=== PATIENT | female | born 1945 | race Caucasian/White ===

== ENCOUNTER 2022-03-08 09:32 | Outpatient (CLI) | payer MEDICARE, BC, SELFPAY ==
[2022-03-08 14:05] LABS: Albumin* 3.9 g/dL (3.3-5.0); Chloride* 102 mmol/L (96-114); Potassium* 3.6 mmol/L (3.6-5.1); Sodium* 135 mmol/L (135-149)
[2022-03-08 14:07] LABS: Bilirubin Total* 0.5 mg/dL (0.1-1.5); Carbon Dioxide* 28 mmol/L (20-32); Creatinine* 0.8 mg/dL (0.5-1.5); Estimated Glomerular Filt Rate 77 ml/min
[2022-03-08 14:08] LABS: Alanine Aminotransferase* 23 U/L (4-35); Alkaline Phosphatase* 64 U/L (40-150); Aspartate Amino Transferase* 36 U/L (12-35); Blood Urea Nitrogen* 20 mg/dL (7-30); Calcium* 9.8 mg/dL (8.4-10.6); Glucose* 94 mg/dL (60-115); Total Protein* 7.2 g/dL (6.0-8.3)
== END 2022-03-08 09:33 | disposition home or self-care (01) ==
LOC: LONREF 09:46
PROVIDERS: PCP Family Medicine; Visit Provider Family Medicine
DX: Z01.419 Encounter for gynecological examination (general) (routine) without abnormal findings (principal); E03.9 Hypothyroidism, unspecified; E78.5 Hyperlipidemia, unspecified; E55.9 Vitamin D deficiency, unspecified; K21.9 Gastro-esophageal reflux disease without esophagitis; E11.9 Type 2 diabetes mellitus without complications
CPT/HCPCS: 80053; 82310; 83970

== ENCOUNTER 2022-03-09 09:57 | Outpatient (CLI) | payer MEDICARE, SELFPAY ==
[2022-03-09 14:34] LABS: Cholesterol* 187 mg/dL (90-199); HDL Cholesterol* 63 mg/dL (>=50); LDL Cholesterol Calculated 103 mg/dL (<100); Triglycerides* 106 mg/dL (40-149)
[2022-03-11 15:44] LABS: TSH With Reflex to FT4* 0.178 uIU/mL (0.270-4.200)
[2022-03-11 16:13] LABS: Free T4 Free Thyroxine* 2.32 ng/dL (0.70-1.85)
== END 2022-03-09 09:58 | disposition home or self-care (01) ==
LOC: LONREF 09:59
PROVIDERS: PCP Family Medicine; Visit Provider Family Medicine
DX: Z01.419 Encounter for gynecological examination (general) (routine) without abnormal findings (principal); E78.5 Hyperlipidemia, unspecified; E03.9 Hypothyroidism, unspecified; E55.9 Vitamin D deficiency, unspecified
CPT/HCPCS: 80061; 84439; 84443

== ENCOUNTER 2022-04-12 09:30 | Outpatient (CLI) | payer MEDICARE, SELFPAY | END 2022-04-12 09:31 | disposition home or self-care (01) | PROVIDERS: PCP Family Medicine; Visit Provider Family Medicine | DX: E03.9 Hypothyroidism, unspecified (principal); E05.90 Thyrotoxicosis, unspecified without thyrotoxic crisis or storm | CPT/HCPCS: 84443 ==

== ENCOUNTER 2022-05-10 09:28 | Outpatient (CLI) | payer MEDICARE, BC, SELFPAY ==
--- OUTSIDE RECORDS SUMMARY | 2022-05-10 09:48 | XMS_ITS | Clinical Summary ---
:1945 Author Organization [facility] [place] [address] Care Team Providers Name Role Phone Vanessa García MD Primary Care Provider [phone] Allergies Active Allergy Reactions Severity Noted Date Comments Atorvastatin Myalgia 04/13/2017 Codeine Nausea And Vomiting 03/22/2011 Ezetimibe Myalgia 04/13/2017 Rosuvastatin Myalgia 04/13/2017 Medications Medication Sig Dispensed Refills Start Date End Date Status levothyroxine Take 25 mcg by 0 A ctive (SYNTHROID) 25 mcg mouth before tablet breakfast. FLUTICASONE Inhale 2 Sprays in 0 Active PROPIONATE (FLONASE the nostril(s) NASL) once daily if needed. metFORMIN (GLUCOPHAGE Take 1,000 mg by 0 Active XR) 500 mg mouth 2 times Extended-Release daily with meals. tablet Cholecalciferol, Take 2,000 Units 0 Active Vitamin D3, 2,000 by mouth once unit tablet daily. acetaminophen Take 1-2 tablets 100 tablet 0 04/21/2017 Active (TYLENOL) 325 mg by mouth every 6 tabletIndications: hours if needed. Primary Max acetaminophen osteoarthritis of dose: 4000mg in 24 left knee hrs. ibuprofen (ADVIL; Take 1 tablet by 40 tablet 0 04/21/2017 Active MOTRIN) 600 mg mouth every 6 tabletIndications: hours if needed Primary for Pain (Take osteoarthritis of with food). left knee Maximum of 3200 mg in 24 hours. aspirin chewable 81 Take 1 tablet by 0 03/28/2018 Active mg chewable tablet mouth once daily with a meal. rosuvastatin Take 1 tablet by 90 tablet 0 03/26/2020 Active (CRESTOR) 5 mg mouth at bedtime. tabletIndications: Further refills to Dyslipidemia come from primary care provider. Magnesium Oxide 500 Daily 0 Active mg tab mirabegron Take 1 tablet by 30 tablet 11 09/09/2020 A ctive EXTENDED-release mouth once daily. (MYRBETRIQ) 50 mg tabletIndications: Overactive bladder estradioL (ESTRACE) Insert 1 g into 1 Tube 5 09/09/2020 Active 0.1 mg/g vaginal the vagina at creamIndications: bedtime. Recurrent urinary tract infection gabapentin Take 1 Capsule 90 capsule. 3 11/15/2021 A ctive (Neurontin) 100 mg (100 mg) by mouth capsuleIndications: 3 times daily. Aftercare following surgery of the musculoskeletal system Active Problems Problem Noted Date Dyslipidemia 04/12/2019 s/p left total knee arthroplasty 04/20/17 04/24/2017 Type 2 diabetes mellitus 04/20/2017 Hypothyroid 04/20/2017 Atypical mole 04/20/2017 Primary osteoarthritis of left knee 03/28/2017 Primary osteoarthritis of right knee 03/28/2017 Adenomatous colon polyp 10/30/2013 Overview: Colonoscopy 10/2013 polyp repeat in 5 yea rs Immunizations Name Administration Dates Next Due Influenza, High-dose Inactivated 04/29/2014 Pneumococcal conj 13-Valent (Prevnar 13) 07/15/2014 Td (Age >=7 Years) 07/05/1999 Tdap 03/22/2011 Zoster (Zostavax-ZVL, live) 12/30/2011 Social History Tobacco Use Types Packs/Day Years Used Date Former Smoker Cigarettes Quit: 08/14/18 92 Smokeless Tobacco: Never Used Tobacco Cessation: Counseling Given: Yes Alcohol Use Standard Drinks/Week Comments Yes 0 (1 standard drink = 0.6 oz pure alcoho l) Rarely Alcohol Habits Answer Date Recorded How often do you have a drink containing alcohol? Not asked How many drinks containing alcohol do you have on a typical Not asked day when you are drinking? How often do you have six or more drinks on one occasion? No t asked Comment: rarely 03/22/2011 Sex Assigned at Date Recorded Not on file Obstetrics History Last Filed Vital Signs Vital Sign Reading Time Taken Comments Blood Pressure 107/65 09/09/2020 11:02 AM PROFESSOR OF CHEMICAL ENGINEERING Pulse 77 09/09/2020 11:02 AM PROFESSOR OF CHEMICAL ENGINEERING Temperature 36.4 ??C (97.5 ??F) 06/24/2020 2:38 PM PROFESSOR OF CHEMICAL ENGINEERING Respiratory Rate 16 04/22/2017 7:38 AM CDT Oxygen Saturation 98% 09/09/2020 11:02 AM PROFESSOR OF CHEMICAL ENGINEERING Inhaled Oxygen Concentration - - Weight 68.1 kg (150 lb 1.6 oz) 09/09/2020 11:02 AM PROFESSOR OF CHEMICAL ENGINEERING Height 162.6 cm (5' 4.02) 04/18/2018 11:26 AM CDT Body Mass Index 25.75 04/18/2018 11:26 AM CDT Plan of Treatment Health Maintenance Due Date Last Done Comments COVID-19 vaccine series (#1) 05/30/1946 Depression screening for age 12+ 1958 Hepatitis C screening for age 18-79 1964 Lipids for age 45-75 11/29/1991 Mammogram for age 45-75 11/29/1991 DEXA/DXA scan for age 65+ 11/29/2011 Medicare Wellness for age 65+ 11/29/2011 Zoster (shingles) series for age 50+ 02/24/2012 12/30/2011 (2 of 3) Pneumococcal series for age 65+ (2 - 07/15/2015 07/15/2014 PPSV23 or PCV20) Colonoscopy through age 75 10/24/2018 10/24/2013, 4 BMI (ht and wt on same day) for age 0904/18/2019 04/18/2018, 04/18/2017, 18+ 03/29/2017 Tetanus booster 03/22/2021 03/22/2011, 03/22/2011, 07/05/1999 Influenza for age 65+ 04/14/2022 04/29/2014 Tdap Completed 03/22/2011 Medical Devices Implanted Type Area Deer Farm Worker Device Shelf Model / Identifier Expiration Serial / Lot Date Patella Sz32 Miriam Ii Rnd Fifi Pors - [id number] Ortho Left: Wai And 01/11/2027 [id number] / Implanted: Qty: 1 on 04/20/2017 by Barrie Contreras MD at [facility] Total Patella Nephew / Joint Orthopaedic [id number] Lens Iol 22 Tecnis - [id number] Left: Eye Allergan 07/07/2020 [id number] / Implanted: Qty: 1 on 10/13/2015 by Evan Cespedes MD at [facility] Incorporated 5 [id number] / Insert Knee Sz1-2 12mm Legion Cruc Ret High Flex Xlpe - [id number] Left: Carreno And 07/13/2024 [id number] / Implanted: Qty: 1 on 04/20/2017 by Barrie oCntreras MD at [facility] Nephew / Orthopaedic [id number] Results Not on filefrom Last 3 Months Insurance Payer Benefit Plan / Subscriber ID Effective Dates Phone Addre ss Type Group MEDICARE PART A MEDICARE PART A [id number] 2011-Presen ATTN: CLAIMS - HB USE ONLY HB ONLY t [address] [place] [address] MEDICARE PART B MEDICARE PART B [id number] 2013-Prese ATTN: CLAIMS - HB USE ONLY HB ONLY nt [address] [place] [address] BLUE CROSS MR BLUE CROSS [id number] 2017-Prese [address] [address] [place], [place] PB ONLY [id number] Advance Directives Latest Code Status on File Code Status Date Activated Date Inactivated Comments Full Code 04/20/2017 3:12 PM 04/22/2017 1:24 PM Full Code 04/20/2017 9:48 AM 04/20/2017 3:08 PM Full Code 04/18/2017 11:34 AM 04/18/2017 4:07 PM Full Code 10/13/2015 8:05 AM 10/13/2015 12:35 PM Full Code 02/18/2015 12:27 PM 02/18/2015 3:02 PM Care Teams Teacher Of Gifted Students Relationship Specialty Start Date End Date Vanessa García MD PCP - General Family Practice 10/07/151999 [place] [address] (work)
--- OUTSIDE RECORDS SUMMARY | 2022-05-10 09:49 | XMS_ITS | Encounter Summary ---
:1945 Author Organization [facility] Address [address] [place] [address] Care Team Providers Name Role Phone Unavailable Primary Care Provider Unavailable Reason for Visit Reason Onset Date Comments dental med 08/26/2019 Encounter Details Date Type Department Care Team Description 08/26/2019 Clinical Communication Department of Uriel Renner , dental med Orthopedic Surgery in [place] [address] [address] [place], [place] [phone] (Work) [phone] Social History Tobacco Use Types Packs/Day Years Used Date Smoking Tobacco: Former Cigarettes 0 Smokeless Tobacco: Never Alcohol Use Standard Drinks/Week Comments Yes 0 (1 standard drink = 0.6 oz pure alcoho l) Alcohol Habits Answer Date Recorded How often do you have a drink containing alcohol? Monthly or less 04/11/2019 How many drinks containing alcohol do you have on a Not aske d typical day when you are drinking? How often do you have six or more drinks on one Not asked occasion? Comment: Not asked Social Isolation Answer Date Recorded In a typical week, how many times do you More than three tres es a week 04/11/2019 talk on the phone with family, friends, or neighbors? How often do you get together with friends Three times a wee k 04/11/2019 or relatives? How often do you attend lutheran or Not asked worship services? Do you belong to any clubs or Yes 04/11/2019 organizations such as lutheran groups, unions, fraternal or athletic groups, or school groups? How often do you attend meetings of the Not asked clubs or organizations you belong to? Are you now , , , Not asked , never or living with a partner? Physical Activity Answer Date Recorded On average, how many days per week do you engage in moderate 1 day 04/11/2019 to strenuous exercise (like walking fast, running, jogging, dancing, swimming, biking, or other activities that cause a light or heavy sweat)? On average, how many minutes do you engage in exercise at No t asked this level? Financial Resource Strain Answer Date Recorded How hard is it for you to pay for the very basics like Not h steven at all 04/11/2019 food, housing, medical care, and heating? Food Insecurity Answer Date Recorded Within the past 12 months, you worried that your food would Never true 04/11/2019 run out before you got money to buy more. Within the past 12 months, the food you bought just didn't N ot asked last and you didn't have money to get more. Transportation Needs Answer Date Recorded In the past 12 months, has lack of transportation kept you N o 04/11/2019 from medical appointments or from getting medications? In the past 12 months, has lack of transportation kept you N ot asked from meetings, work, or getting things needed for daily living? Sex Assigned at Date Recorded Not on file documented as of this encounter Miscellaneous Notes Telephone Encounter - Missy Aldrich R.N. - 08/27/2019 12:54 PM GLAZIER HELPER Patient notified RX was faxed to [facility] IER HELPER Telephone Encounter - Missy Aldrich R.N. - 08/26/2019 9:55 AM GLAZIER HELPER Returned call to patient and notified her I will request medication and then fax to her pharmacy. IER HELPER Telephone Encounter - Debra Harley - 08/26/2019 8:20 AM CST Reason for Communication: Heather said Dr Renner was going to order her a medication to use before her dental appt. The pharmacy has not received anything yet. Can this be checked on? Current Can Nursing/Provider leave a detailed message: yes Did the patient refuse triage through Nurse line? (for symptom based concerns): Action Needed: med ordered Name of Medication (if relevant): IER HELPER documented in this encounter Plan of Treatment Not on filedocumented as of this encounter Visit Diagnoses Not on filedocumented in this encounter
--- OUTSIDE RECORDS SUMMARY | 2022-05-10 09:49 | XMS_ITS | Encounter Summary ---
:1945 Author Organization [facility] Address [address] [place] [address] Care Team Providers Name Role Phone Unavailable Primary Care Provider Unavailable Reason for Visit Reason Comments Pain [place] pop in shoulder, while laying in bed mid september- had pain for 3-4 weeks. Pain has improved for the most part but feel like she is lacking strength.R reverse total dirk ulder 06/18/2019. Appointment Request (Routine) - Closed Specialty Diagnoses / Procedures Referred By Contact Refer red To Contact Orthopedic Surgery Referral ID Status Reason Start Date Expiration Date Visits Requ ested Visits Authorized [id number] Closed 12/05/2019 12/04/2020 1 1 Encounter Details Date Type Department Care Team Description 01/07/2020 Office Visit Department of Candice Lynch, Rosy serrato Total Orthopedic Surgery in [facility], C.N.P., Shoul yamini Replacement [place], D.N.P. Status Post Right [address] (Primary Dx) [address] [place] [id number] Social History Tobacco Use Types Packs/Day Years [...] or relatives? How often do you attend yazidism or Not asked taoism services? Do you belong to any clubs or Yes 04/11/2019 organizations such as yazidism groups, unions, fraternal or athletic groups, or [...] on file documented as of this encounter Progress Notes Candice Lynch, EDGAR, C.N.P., D.N.P. - 01/07/2020 10:00 AM CDT SUBJECTIVE CHIEF COMPLAINT / REASON FOR VISIT Heather Harrell is a 74 y.o. female who presents for evaluation of Pain of the Right Shoulder ([place] pop in shoulder, while laying in bed mid september- had pain for 3-4 weeks. Pain has improved for the most part but feel like she is lacking strength.//R reverse total shoulder 06/18/2019.). HISTORY OF PRESENT ILLNESS Heather is a pleasant 74 y.o. female who is 6-7 months s/p reverse total shoulder arthroplasty in 06/2019. She had been recovering quite well postoperatively. She went on a cruise few months later and when she was sleeping, her arm got twisted in blankets when she heard a loud pop and pain. She reportspain was significant for the following several weeks but since that time has gotten significantly bet ter. She is worried about stretching and strengthening given the loud pop in just wants to make sureeverything is okay. OBJECTIVE PHYSICAL EXAMINATION General: Patient is in no distress. Capable of full communication without difficulty. Patient is polite and cooperative. Extremities: Right shoulder surgical incision is well healed without any signs or symptoms of infection. Right shoulder flexion to 170??, abduction to 120??. Internal rotation to T12, external rotationto 50??. Internal/external rotation strength is WNL, empty can test, belly test all normal. No neurovascular compromise distally. Neuro: Alert and oriented x3. DIAGNOSTICS RIGHT SHOULDER X-RAY FINDINGS: Postop changes right reverse shoulder arthroplasty. No radiographic evidence of loosening. ASSESSMENT / PLAN #1 Arthroplasty Total Shoulder Replacement Status Post Right Heather is a pleasant 74-year-old female who is 6-7 months status post reverse total shoulder arthroplasty. She had been recovering well but experienced a loud pop and pain in her shoulder after her armthat twisted in some blankets few months ago. Since that time, pain has significantly improved with just gentle stretching, notb-[id number]-[id number] analgesics, and ice. X-rays today are reassuring. At this time, we will have her continue to work on stretching and strengthening of her shoulder. Continue [id number] remedies as needed for pain. We will plan to see her back 1 year from surgery, or sooner with concerns. She is in agreement with this plan, all of her questions were answered. documented in this encounter Plan of Treatment Not on filedocumented as of this encounter Results DX Shoulder Right 2+ Views (01/07/2020 10:41 AM CDT) Anatomical Region Laterality Modality Upper Extremity, Shoulder, Musculoskeletal RST LOS, Right Digital Radiography Musculoskeletal ARZ LOS, Muskuloskeletal FLA LOS Specimen (Source) Anatomical Collection Method Collection Time Re ceived Time Location / / Volume Laterality 01/07/2020 10:55 AM CDT Impressions 01/07/2020 10:56 AM CDT Postop changes right reverse shoulder ar throplasty. Narrative 01/07/2020 10:56 AM CDT EXAM: DX SHOULDER RIGHT 2+ VIEWS COMPARISON: July 02, 2019 FINDINGS: Postop changes right reverse s houlder arthroplasty. No radiographic evidence of loosening. Procedure Note Ruperto Winters M.D. - 01/07/2020Forma tting of this note might be different from the original. EXAM: DX SHOULDER RIGHT 2+ VIEWS COMPARISON: July 02, 2019 FINDINGS: Postop changes right reverse s houlder arthroplasty. No radiographic evidence of loosening. IMPRESSION: Postop changes right reverse shoulder ar throplasty. Candice Lynch APRN, C.N.P., D.N.P. IMG DIAGNOSTIC IM AGING PROCEDURES documented in this encounter Visit Diagnoses Diagnosis Arthroplasty Total Shoulder Replacement Status Post Right - Primary Arthroplasty Total Shoulder Replacement Status Post Right documented in this encounter
--- OUTSIDE RECORDS SUMMARY | 2022-05-10 09:49 | XMS_ITS | Encounter Summary ---
:1945 Author Organization [facility] Address [address] [place] [address] Care Team Providers Name Role Phone Unavailable Primary Care Provider Unavailable Reason for Visit Reason Onset Date Comments Med Refill 08/27/2019 Encounter Details Date Type Department Care Team Description 08/27/2019 Refill Department of Orthopedic Uriel Renner M.D. Med Refill Surgery in [address] [id number] [place] [address] [place] [address] [phone] Social History Tobacco Use Types Packs/Day Years [...] or relatives? How often do you attend congregational or Not asked mandaen services? Do you belong to any clubs or Yes 04/11/2019 organizations such as congregational groups, unions, fraternal or athletic groups, or [...] Miscellaneous Notes Telephone Encounter - Missy Aldrich RJudithN. - 08/27/2019 12:55 PM SWEATBAND PERFORATOR Patient notified RX was faxed to [facility] TBAND PERFORATOR documented in this encounter Plan of Treatment Not on filedocumented as of this encounter Visit Diagnoses Not on filedocumented in this encounter
--- OUTSIDE RECORDS SUMMARY | 2022-05-10 09:49 | XMS_ITS | Encounter Summary ---
:1945 Author Organization [facility] Address [address] [place] [address] Care Team Providers Name Role Phone Unavailable Primary Care Provider Unavailable Reason for Referral Outpatient (Routine) - Closed Specialty Diagnoses / Procedures Referred By Contact Refer red To Contact Urology Dionna Tompkins APRN, RJudithN. [facility] [address] [place] [address] Referral ID Status Reason Start Date Expiration Date Visits Requ ested Visits Authorized [id number] Closed 02/02/2021 02/02/2022 1 1 Reason for Visit Reason Comments Urinary Tract Infection repeated UTI's or stones , b urning with urination and frequent urge to urinate. Appointment Request (Routine) - Closed Specialty Diagnoses / Procedures Referred By Contact Refugio jarvis To Contact Urology Referral ID Status Reason Start Date Expiration Date Visits Requ ested Visits Authorized [id number] Closed 01/25/2021 01/25/2022 1 1 Encounter Details Date Type Department Care Team Description 02/02/2021 Comprehensive Visit Department of Dionna Tompkins (Primary Dx); Urology in [place] Mc[place], R.N. 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 How often do you attend islam or Not asked church services? Do you belong to any clubs or Yes 04/11/2019 organizations such as islam groups, unions, fraternal or athletic groups, or [...] on file documented as of this encounter Last Filed Vital Signs Vital Sign Reading Time Taken Comments Blood Pressure 135/68 02/02/2021 10:47 AM CDT Pulse 77 02/02/2021 10:47 AM CDT Temperature 36.8 ??C (98.2 ??F) 02/02/2021 10:47 AM CDT Respiratory Rate - - Oxygen Saturation - - Inhaled Oxygen Concentration - - Weight - - Height - - Body Mass Index - - documented in this encounter Consult Notes Dionna Tompkins APRN, C.N.P. - 02/02/2021 11:00 AM CDT SUBJECTIVE REASON FOR CONSULT Recurrent UTI's HISTORY OF PRESENT ILLNESS Carrie is a pleasant 75 year old female here today for a consultation for recurrent urinary tract infections. She has previously seen Dr. Mcgowan, Urologist at [facility]. Her urine has been testednumerous times without any clearly positive cultures. She states that when she has symptoms of urinary tract infection she has antibiotics at home that she takes as needed, I am unable to find where these antibiotics have been prescribed. She currently feels that she has urinary tract infection now. She typically takes Keflex for urinary tract infections and feels that this works very well for her. She has had issues with bladder pain and urinary urgency and frequency, she does take oxybutynin 2.5 mg tablet twice daily. She is not feel that this is very helpful with her bladder pain that she has. She has not been using vaginal estrogen cream. Please see below for further details. MC AMB URO PROLAPSE INTAKE QUESTIONNAIRE SB: How many pregnancies have you had?: 2 How many live births have you had?: 2 How many vaginal deliveries have you had?: 2 Is there any tissue you can see or feel bulging outside of the vaginal opening?: no Have you had a hysterectomy?: yes Did they remove your ovaries at the time of your hysterectomy?: Unknown Are you premenopausal, perimenopausal, or post menopausal?: post menopausal Associated Symptoms Chemical exposures: toxic chemical exposure (+) (Former smoker) Lower Urinary Symptoms Obstructive Sx: kidney infections or required hospitalization for kidney failure (-) # of UTI's in past year: 3 or more Required catheter: no Incontinence: unintentionally leaks urine (+) leaking occurs during coughing, sneezing or lifting heavy objects (+) experiences a feeling of urgency before leaking (+) The following portions of the patient's history were reviewed and updated as appropriate: allergies,current medications, family history, medical history, social history, surgical history and problem list. REVIEW OF SYSTEMS Respiratory: Negative for sleep disturbances due to breathing. Cardiovascular: Negative for swelling in the legs or feet. Gastrointestinal: Positive for constipation. Sometimes very constipated, enemas PRN, doesn't feel bowels empty completely. Has BM on most days. Genitourinary: Positive for pain with urination. More pressure, happening more often. Symptoms of UTI: More frequency, pain/pressure in low abdomen, no fevers, no back pain. Drinks 3 large bottles of water, milk with meals, 1-2 cups of coffee. Drinks water until bedtime. Voids every 1-2 hours during the day. Gets up 3 times at night. Psychiatric/Behavioral: Positive for snores loudly. Negative for stop breathing, choking, or gaspingwhile asleep. Past Medical History: Diagnosis Date ??? Constipation ??? Diabetes Mellitus Type 2 Without Complication (HCC) ??? Diverticulitis ??? Gastroesophageal Reflux Disease NOS ??? Hyperlipidemia ??? Hypothyroidism ??? Insomnia ??? Pain Chest Atypical ??? Polyp Colon Adenomatous 10/30/2013 Overview: Colonoscopy 10/2013 polyp repeat in 5 years ??? Post Operative Nausea/Vomiting ??? Sickness Motion Personal History Past Surgical History: Procedure Laterality Date ??? ABDOMINAL SURGERY hysterectomy ??? ARTHROPLASTY TOTAL REVERSE SHOULDER Right 06/18/2019 Procedure: ARTHROPLASTY TOTAL REVERSE SHOULDER; Surgeon: Uriel Renner M.D.; Location: [facility] OR ??? COLONOSCOPY 2016 ??? ELBOW FRACTURE SURGERY ??? ESOPHAGOGASTRODUODENOSCOPY 2017 Erosive gastropathy ??? EYE SURGERY Repair of Retinal defect by laser photocoagulation ??? EYE SURGERY Cataract removal ??? JOINT REPLACEMENT left knee arthroplasty ??? PARTIAL HYSTERECTOMY ??? ROTATOR CUFF REPAIR Right ??? ROTATOR CUFF REPAIR Left ??? TOE SURGERY Right Family History Problem Relation Age of Onset ??? Coronary artery disease Father ??? Diabetes Sister ??? Cancer Sister ??? Scleroderma Sister ??? Coronary artery disease Brother ??? Thyroid disease Daughter ??? Cancer Maternal Grandmother ??? Cancer Other colon cancer Allergies Allergen Reactions ??? Atorvastatin Myalgia ??? Codeine Nausea Only, Nausea And Vomiting and GI intolerance ??? Ezetimibe Myalgia ??? Pravastatin Other (see comments) Body aches Current Outpatient Medications on File Prior to Visit Medication Sig Dispense Refill ??? acetaminophen (TYLENOL) 500 mg tablet Take 1 tablet (500 mg total) by mouth every 6 (six) hours as needed for mild pain or score 1-3 of 10. ??? aspirin 81 mg chewable tablet Chew 81 mg daily. ??? gabapentin (NEURONTIN) 100 mg capsule Take 1 capsule (100 mg total) by mouth 3 (three) times a day as needed (Pain). 90 capsule 1 ??? levothyroxine (SYNTHROID, LEVOTHROID) 25 mcg tablet Take 25 mcg by mouth daily. 3 ??? metFORMIN XR (GLUCOPHAGE-XR) 500 mg 24 hr tablet Take 1,000 mg by mouth 2 (two) times a day withmeals. 3 ??? omega-3 fatty acids-fish oil 300-1,000 mg capsule Take 500 mg by mouth daily. ??? oxybutynin (DITROPAN) 5 mg tablet Take 2.5 mg by mouth 2 (two) times a day. ??? rosuvastatin (CRESTOR) 5 mg tablet Take 5 mg by mouth at bedtime. 3 ??? [DISCONTINUED] aspirin-calcium carbonate 81 mg-300 mg calcium(777 mg) tablet Take 81 mg by mouthdaily. ??? [DISCONTINUED] gabapentin (NEURONTIN) 100 mg capsule Take 100 mg by mouth. ??? calcium carbonate (TUMS) 500 mg (200 mg calcium) chewable tablet Chew as needed. ??? magnesium oxide 500 mg tablet tablet Take 1 tablet by mouth daily. ??? [DISCONTINUED] estradioL (VIVELLE-DOT) 0.025 mg/[address] 1 patch on the skin once a week. Monday No current facility-administered medications on file prior to visit. Social History Tobacco Use ??? Smoking status: Former Smoker Packs/day: 0.00 ??? Smokeless tobacco: Never Used Substance Use Topics ??? Alcohol use: Yes ??? Drug use: Not on file OBJECTIVE Vitals: 02/02/21 1047 BP: 135/68 Pulse: 77 Temp: 36.8 ??C PHYSICAL EXAM Vitals and nursing note reviewed. General: Well developed, well nourished, well groomed female in no acute distress. Neurological: Alert, cooperative, oriented x3. Appropriate mood and affect. Head: Normal appearance, no abnormalities, normocephalic. Neck: Symmetrical and supple, trachea is midline. Cardiac: regular rate, regular rhythm. Respiratory:Respirations are unlabored with normal respiratory rate and normal respiratory movements. Normal chest wall expansion without use of accessory muscles. Abdomen: Soft, non-tender, non-distended Vascular: There are +2 pulses noted in both upper and lower extremities. : Skin color and turgor appropriate for region. No ulcers, erythema, rashes, or pigmented lesions noted. External genitalia negative for masses, lesions, or swelling. No labial agglutination noted, minimal atrophy noted. No unusual odors or discharge noted. Vaginal mucosa pink and moist with rugae present. No cystocele or rectocele exhibited on straining. Extremities: Warm, without edema or ulcerations. Musculoskeletal: [place] is symmetrical and balanced. DIAGNOSTIC Postvoid residual by bladder scan 47 mL. ASSESSMENT / PLAN #1 Recurrent Urinary Tract Infections #2 Dysuria #3 Vaginal Atrophy Catheterized urine specimen is collected for urinalysis and urine culture. Prescription for Keflex 500 mg capsule twice daily for 10 days is sent to her pharmacy. Prescription for vaginal estrogen cream, nightly for 14 doses, then 2- 3 times each week is sent to her pharmacy. We discussed how vaginal estrogen cream can help prevent recurrent urinary tract infections. Standing Orders are placed for urinalysis and urine culture, if she has symptoms of urinary tract infection she will bring a urine sample to the lab in [place]. We will treat with antibiotics if indicated. Follow-up in approximately 6months, sooner if needed. Signed by: Dionna Tompkins APRN, C.N.P. 02/02/2021 10:53 AM CDT documented in this encounter Plan of Treatment Scheduled Orders Name Type Priority Associated Diagnoses Order S chedule Bacterial Culture, Microbiology Routine Dysuria 3 Occurrences Aerobic + Susc, Urine Infection Urinary s tarting 02/02/2021 Tract Recurrent until 2023, 1 completed Urinalysis with Lab Routine Dysuria 3 Occurrences Microscopic: Urine, Infection Urinary sta rting 02/02/2021 Midstream Tract Recurrent until 2023, 1 completed Scheduled Referrals Name Type Priority Associated Diagnoses Order S [facility] Urology office Outpatient Referral Routine Expect ed: visit (clinic) 08/04/2021 (Approximate), Expires: 02/03/2024 documented as of this encounter Procedures Procedure Name Priority Date/Time Associated Comments Diagnosis BACTERIAL CULTURE, Routine 02/02/2021 11:59 Dysuria Results for this AEROBIC + SUSC, URINE AM CDT Infection Urinary p rocedure are in Tract Recurrent the results section. URINALYSIS WITH Routine 02/02/2021 11:59 Dysuria Results for this MICROSCOPIC AM CDT Infection Urinary procedure are in Tract Recurrent the results section. documented in this encounter Results Urinalysis with Microscopic: Urine, Midstream (07/05/2021 10:50 AM INDUSTRIAL MACHINE SYSTEM TECHNICIAN) Analysis Performed At [facility] Time Signature Source Urine, Urine, 07/05/2021 OWAT Midstream 11:14 AM INDUSTRIAL MACHINE SYSTEM TECHNICIAN Clarity Clear Clear 07/05/2021 OWAT 11:14 AM INDUSTRIAL MACHINE SYSTEM TECHNICIAN Color Yellow 07/05/2021 OWAT 11:14 AM INDUSTRIAL MACHINE SYSTEM TECHNICIAN Comment: ----REFERENCE VALUE---- Colorless Yellow Julita Blood Negative Negative 07/05/2021 11:14 AM INDUSTRIAL MACHINE SYSTEM TECHNICIAN OWAT Nitrite Negative Negative 07/05/2021 11:14 AM INDUSTRIAL MACHINE SYSTEM TECHNICIAN OW[facility] Leukocyte Esterase Negative Negative 07/05/2021 11:[address] [facility] Protein Negative mg/dL 07/05/2021 11:14 AM INDUSTRIAL MACHINE SYSTEM TECHNICIAN OWAT Comment: ----REFERENCE VALUE---- Negative Trace Glucose Negative Negative mg/dL 07/05/2021 11:14 AM INDUSTRIAL MACHINE SYSTEM TECHNICIAN O ALIDA Ketone Negative Negative mg/dL 07/05/2021 11:14 AM INDUSTRIAL MACHINE SYSTEM TECHNICIAN O [place]IDA Bilirubin Negative Negative 07/05/2021 11:14 AM INDUSTRIAL MACHINE SYSTEM TECHNICIAN OWAT pH 7.5 5.0 - 8.0 07/05/2021 11:14 AM INDUSTRIAL MACHINE SYSTEM TECHNICIAN OW[place] Specific [place] 1.007 1.001 - 1.035 07/05/2021 11:14 AM INDUSTRIAL MACHINE SYSTEM TECHNICIAN OWAT Urobilinogen 0.2 0.2 - 1.0 mg/dL 07/05/2021 11:[address] [facility] White Blood Cells None Seen /hpf 07/05/2021 11:29 AM CS T OWAT Comment: ----REFERENCE VALUE---- Males: 0-3 Females: 0-10 Unknown: 0-10 Red Blood Cells Occ-2 0 - 2 /hpf 07/05/2021 11:29 AM INDUSTRIAL MACHINE SYSTEM TECHNICIAN OWAT Specimen Anatomical Collection Method Collection Time Receive d Time (Source) Location / / Volume Laterality Urine (Urine, 07/05/2021 10:50 07/05/2021 Midstream) AM INDUSTRIAL MACHINE SYSTEM TECHNICIAN 11:00 AM INDUSTRIAL MACHINE SYSTEM TECHNICIAN Dionna Tompkins APRN, R.N. LAB URINE ORDERABLES Performing Organization Address City/[facility]/ZIP [facility] Phon e Number [facility]- [address] [place] [address] [place] [address] System in [place] [address] (ABNORMAL) Bacterial Culture, Aerobic + Susc, Urine (07/05/2021 10:50 AM INDUSTRIAL MACHINE SYSTEM TECHNICIAN) Analysis Performed At Patho logist Time Signature Urine Culture Mixed 07/06/2021 [facility] lorenzo. (A) 9:12 AM INDUSTRIAL MACHINE SYSTEM TECHNICIAN Specimen Anatomical Collection Method Collection Time Receive d Time (Source) Location / / Volume Laterality Urine (Urine, 07/05/2021 10:50 07/05/2021 2:14 Midstream) AM INDUSTRIAL MACHINE SYSTEM TECHNICIAN PM INDUSTRIAL MACHINE SYSTEM TECHNICIAN Comment: Specimen Source Site: Urine Dionna Tompkins APRN, R.N. LAB MICROBIOLOGY - GENERA L ORDERABLES Performing Organization Address City/[facility]/ZIP Code Phon e Number [facility]- [address] [place] [id number] [place] [address] System in [address] (ABNORMAL) Urinalysis with Microscopic: Urine, Straight Catheter (02/02/2021 11:59 AM CDT) P athologist Signature Source Urine, Urine, 02/02/2021 [place] Straight 12:20 PM CDT Catheter Clarity Cloudy (A) Clear 02/02/2021 [place] 12:20 PM CDT Color Julita 02/02/2021 OWAT 12:20 PM CDT Comment: ----REFERENCE VALUE---- Colorless Yellow Julita Blood Large (A) Negative 02/02/2021 12:20 PM CDT OWAT Nitrite Positive (A) Negative 02/02/2021 12:20 PM CDT OWA T Leukocyte Esterase Large (A) Negative 02/02/2021 12:20 PM C DT OWAT Protein 30 (A) mg/dL 02/02/2021 12:20 PM CDT OWAT Comment: ----REFERENCE VALUE---- Negative Trace Glucose Negative Negative mg/dL 02/02/2021 12:20 PM CDT O ALIDA Ketone Negative Negative mg/dL 02/02/2021 12:20 PM CDT O [place] Bilirubin Negative Negative 02/02/2021 12:20 PM CDT OWAT pH 5.5 5.0 - 8.0 02/02/2021 12:20 PM CDT OW[place] Specific [place] 1.017 1.001 - 1.035 02/02/2021 12:20 PM CDT OWAT Urobilinogen 1.0 0.2 - 1.0 mg/dL 02/02/2021 12:20 PM C DT OWAT White Blood Cells >100 (A) /hpf 02/02/2021 1:01 PM CDT OWAT Comment: ----REFERENCE VALUE---- Males: 0-3 Females: 0-10 Unknown: 0-10 Red Blood Cells >100 (A) 0 - 2 /hpf 02/02/2021 1:01 PM CDT OWAT Dysmorphic Red Blood Cells <=25 <=25 % 02/02/2021 1: 01 PM CDT OWAT Hyaline Casts 1-3 /lpf 02/02/2021 1:01 PM CDT OWA T Bacteria Present (A) None Seen 02/02/2021 1:01 PM CDT OWAT Specimen Anatomical Collection Method Collection Time Receive d Time (Source) Location / / Volume Laterality Urine (Urine, 02/02/2021 11:59 02/02/2021 Straight AM CDT 12:16 PM CDT Catheter) Dionna Tompkins APRN RJudithNJudith LAB URINE ORDERABLES Performing Organization Address City/State/ZIP Code Phon e Number [facility]- [address] [facility] [place] [address] [facility] [place] [address] System in [place] [address] (ABNORMAL) Bacterial Culture, Aerobic + Susc, Urine (02/02/2021 11:59 AM CDT) [facility] Method Time Signature Urine Culture ESCHERICHIA COLI 02/04/2021 MKTO >100,000 cfu/mL 7:53 AM CDT (A) Specimen Anatomical Collection Method Collection Time Receive d Time (Source) Location / / Volume Laterality Urine (Urine, 02/02/2021 11:59 02/02/2021 2:46 Straight AM CDT PM CDT Catheter) Comment: Specimen Source Site: Urine Organism Antibiotic Method Susceptibility Escherichia coli Ampicillin SUSCEPTIBILITY, <=2 mcg/mL: Chel ceptible IVON (MCG/ML) Escherichia coli Ampicillin + Sulbactam SUSCEPTIBILITY, <=2 mcg/ mL: Susceptible IVON (MCG/ML) Escherichia coli Piperacillin + Tazobactam SUSCEPTIBILITY, <=4 m cg/mL: Susceptible IVON (MCG/ML) Escherichia coli Cefazolin SUSCEPTIBILITY, <=4 mcg/mL: Chel ceptible IVON (MCG/ML) Escherichia coli Ceftazidime SUSCEPTIBILITY, <=1 mcg/mL: Chel ceptible IVON (MCG/ML) Escherichia coli Ceftriaxone SUSCEPTIBILITY, <=1 mcg/mL: Chel ceptible IVON (MCG/ML) Escherichia coli Cefepime SUSCEPTIBILITY, <=1 mcg/mL: Chel ceptible IVON (MCG/ML) Escherichia coli Aztreonam SUSCEPTIBILITY, <=1 mcg/mL: Chel ceptible IVON (MCG/ML) Escherichia coli Ertapenem SUSCEPTIBILITY, <=0.5 mcg/mL: IVON (MCG/ML) Susceptible Escherichia coli Meropenem SUSCEPTIBILITY, <=0.25 mcg/mL: IVON (MCG/ML) Susceptible Escherichia coli Gentamicin SUSCEPTIBILITY, <=1 mcg/mL: Chel ceptible IVON (MCG/ML) Escherichia coli Tobramycin SUSCEPTIBILITY, <=1 mcg/mL: Chel ceptible IVON (MCG/ML) Escherichia coli Levofloxacin SUSCEPTIBILITY, 1 mcg/mL: Inter mediate IVON (MCG/ML) Escherichia coli Nitrofurantoin SUSCEPTIBILITY, <=16 mcg/mL: Landon sceptible IVON (MCG/ML) Escherichia coli Trimethoprim + SUSCEPTIBILITY, >=320 mcg/mL: R esistant Sulfamethoxazole IVON (MCG/ML) Dionna Tompkins APRN, R.N. LAB MICROBIOLOGY - GENERA L ORDERABLES Performing Organization Address City/State/ZIP Code Phon e Number [facility]- [address] [place] [address] [place] [address] System in [address] documented in this encounter Visit Diagnoses Diagnosis Dysuria - Primary Infection Urinary Tract Recurrent Atrophy Vagina Due To Estrogen Deficienc y documented in this encounter
--- OUTSIDE RECORDS SUMMARY | 2022-05-10 09:49 | XMS_ITS | Clinical Summary ---
:1945 Author Organization [facility] Address [address] [place] [address] Care Team Providers Name Role Phone Unavailable Primary Care Provider Unavailable Source Comments Patient records contain information from all sites at [facility]. For routine questions regarding patient records, call [phone] during business hours, M-F 8:00 AM - 5:00 PM Central Time. Record requests for emergency care only can be directed to [phone] at any time.[facility] Allergies Active Allergy Reactions Severity Noted Date Comments Atorvastatin Myalgia 04/13/2017 Codeine Nausea Only, Nausea And Vomiting, GI 04/2011 intolerance Ezetimibe Myalgia 04/13/2017 Pravastatin Other (see comments) 04/05/2019 Body ac hes Medications Medication Sig Dispensed Refills Start Date End Date Status rosuvastatin (CRESTOR) Take 5 mg by 3 06/04/2019 Active 5 mg tablet mouth at bedtime. metFORMIN XR Take 1,000 mg by 3 05/21/2019 Active (GLUCOPHAGE-XR) 500 mg mouth 2 (two) 24 hr tablet times a day with meals. levothyroxine Take 25 mcg by 3 05/21/2019 Active (SYNTHROID, LEVOTHROID) mouth daily. 25 mcg tablet omega-3 fatty Take 500 mg by 0 A ctive acids-fish oil mouth daily. 300-1,000 mg capsule acetaminophen (TYLENOL) Take 1 tablet 0 06/19/2019 Active 500 mg tablet (500 mg total) by mouth every 6 (six) hours as needed for mild pain or score 1-3 of 10. gabapentin (NEURONTIN) Take 1 capsule 90 capsule 1 11/06/2019 Active 100 mg capsule (100 mg total) by mouth 3 (three) times a day as needed (Pain). oxybutynin (DITROPAN) 5 Take 2.5 mg by 0 01/24/2021 Active mg tablet mouth 2 (two) times a day. magnesium oxide 500 mg Take 1 tablet by 0 Active tablet tablet mouth daily. calcium carbonate Chew as needed. 0 Active (TUMS) 500 mg (200 mg calcium) chewable tablet aspirin 81 mg chewable Chew 81 mg 0 10/07/2011 Active tablet daily. estradioL (ESTRACE) 0.1 Use nightly for 42 g 3 02/02/2021 Active mg/g (0.01%) vaginal 14 doses, then cream 2-3 nights each week. Additional Information Patient not taking. Reported on 07/05/2021 Active Problems Problem Noted Date Arthroplasty Total Shoulder Replacement Status Post Ri ght 06/18/2019 Pain Chest 04/08/2019 Pain Shoulder Right 01/15/2019 Overview: Added automatically from request for mac gil [id number] Primary Osteoarthritis Shoulder Right 01/15/2019 Overview: Added automatically from request for mac gil [id number] Encounter For Other Orthopedic Aftercare 04/24/2017 Nevus Pigmented 04/20/2017 Primary Osteoarthritis Knee Left 03/28/2017 Primary Osteoarthritis Knee Right 03/28/2017 Polyp Colon Adenomatous 10/30/2013 Overview: Overview: Colonoscopy 10/2013 polyp repeat in 5 yea rs Hyperlipidemia Diabetes Mellitus Type 2 Without Complication Hypothyroidism Insomnia Constipation Resolved Problems Problem Noted Date Resolved Date Pain Joint 06/18/2019 06/18/2019 Immunizations Name Administration Dates Next Due H1N1 All Forms 09/04/2009 HZV (ZOSTAVAX) 12/30/2011 HepA Adult 12/15/2016, 06/15/2016 Influenza high dose QV(65 years or 11/03/2020, 05/04/2020 older) (PF) MMR 11/30/2018 PCV13 07/15/2014 PPSV23 01/08/2016 RZV (SHINGRIX) 03/27/2019, 01/16/2019 Td (Adult), adsorbed 07/05/1999 Tdap 03/22/2011 influenza high dose (65 years or 05/23/2019, 05/15/2018, , older) (PF) 09/09/2015, 04/29/2014 influenza vaccine quad 04/26/2017 (FLUZONE/FLUARIX) (6 months and older)(PF) Family History Medical History Relation Name Comments Coronary artery disease Brother 1 Cardiac disorder Brother 2 No Known Problems Brother 3 Thyroid disease Daughter Coronary artery disease Father Cancer Maternal Grandmother Nephrolithiasis Mother Old age Mother Cancer Other colon cancer Cancer Sister 1 Rochelle Diabetes Sister 1 Rochelle Scleroderma Sister 1 Rochelle Hyperlipidemia Sister 2 Kylee No Known Problems Sister 3 Relation Name Status Comments Brother 1 Alive Brother 2 Alive Brother 3 Alive Daughter Father Maternal Grandmother Mother Other Sister 1 Rochelle Sister 2 Kylee Alive Sister 3 Alive Social History Tobacco Use Types Packs/Day Years [...] or relatives? How often do you attend anglican or Not asked christianity services? Do you belong to any clubs or Yes 04/11/2019 organizations such as anglican groups, unions, fraternal or athletic groups, or [...] Assigned at Date Recorded Not on file Last Filed Vital Signs Vital Sign Reading Time Taken Comments Blood Pressure 135/68 02/02/2021 10:47 AM CDT Pulse 71 07/05/2021 2:00 PM SUPERVISOR ENGINE REPAIR Temperature 35.7 ??C (96.3 ??F) 07/05/2021 2:00 PM SUPERVISOR ENGINE REPAIR Respiratory Rate 16 06/19/2019 9:58 AM SUPERVISOR ENGINE REPAIR Oxygen Saturation 99% 07/05/2021 2:00 PM SUPERVISOR ENGINE REPAIR RA Inhaled Oxygen Concentration - - Weight 72.5 kg (159 lb 13.3 oz) 06/18/2019 11:29 AM SUPERVISOR ENGINE REPAIR Height 162.6 cm (5' 4.02) 06/18/2019 11:29 AM SUPERVISOR ENGINE REPAIR Body Mass Index 27.42 06/18/2019 11:29 AM SUPERVISOR ENGINE REPAIR Plan of Treatment Health Maintenance Due Date Last Done Comments Bone Density Scan (Osteoporosis 1945 Screen) CT Colonography 1945 Cologuard 1945 Colonoscopy 1945 Colorectal Cancer Surveillance 1945 Diabetic Office Visit with Foot 1945 Exam Dilated Eye Exam 1945 Hepatitis C Screening 1945 Mammogram 1945 Thyroid Stimulating Hormone (TSH) 1945 test for thyroid function Urine Albumin 1945 Hepatitis B Vaccines (1 of 3 - 2006 Risk 3-dose series) Hemoglobin A1C 09/20/2019 03/20/2019 Creatinine Level 03/20/2020 03/20/2019, 03/30/2018 DTaP,Tdap,and Td Vaccines (2 - Td 03/22/2021 03/22/2011, or Tdap) Depression Screening (Annual 08/14/2021 PHQ-2) Fall Risk Screen (Annual) 08/14/2021 Office Visit for Blood Pressure 02/02/2022 02/02/2021 Check / Re-check COVID-19 Vaccine (5 - Booster for 02/15/2022 12/21/2021, , Pfizer series) 10/20/2020, Additional history exists Influenza Vaccine (#1) 2022 04/25/2021, 11/03/2020, 05/04/2020, Additional history exists Lipid (Cholesterol) Screening 03/20/2024 03/20/2019 Pneumococcal vaccine (65+ years) Completed 01/08/2016, 09/2013 Zoster Vaccines Completed 03/27/2019, 01/16/2019, 12/30/2011 Medical Devices Implanted Type Area Dredge Lever Operator Device Identifier Shelf Model / Expiration Serial / Date Lot Hardware E.G. Hardware Right: Pins/Screws/R e.g. Foot ods pins/screws/ rods Knee Implant Knee Implant Left: Knee Reunuin Rsa Humeral Cup 32mm/4mm Shoulder Stonewall [id number] 03/09/2024 [id number] / Implanted: Qty: 1 on 06/18/2019 at [facility] Impla nt / [id number] Insurance Payer Benefit Plan Subscriber ID Effective Phone Address Typ e / Group Dates MEDICARE MEDICARE A [id number] 2013-Pre [address] [place] [address] BLUE CROSS BCBS HAVASUPAI [id number] 2017-Pre [phone] PO BEL X Cost Share BLUE SHIELD BLUE COST sent [phone] SHARE [place] [id number] [phone] [facility] (Home) [place] [phone] Advance Directives For more information, please contact: [phone] Latest Code Status on File Code Status Date Activated Date Inactivated Comments Full Code 06/18/2019 11:29 AM 06/19/2019 12:47 PM Full Code: Not Discussed Due to: Patient not available
--- OUTSIDE RECORDS SUMMARY | 2022-05-10 09:49 | XMS_ITS | Encounter Summary ---
:1945 Author Organization [facility] Address [address] [place] [address] Care Team Providers Name Role Phone Unavailable Primary Care Provider Unavailable Encounter Details Date Type Department Care Team Description 07/05/2021 Hospital Encounter Department of Dionna Tompkins; Radiology in A, CARDIOVASCULAR OR NURSE, R.N. Pain Low Back Acute [place], [place] [address] [place] [phone] Social History Tobacco Use Types Packs/Day Years [...] or relatives? How often do you attend voodoo or Not asked denominational services? Do you belong to any clubs or Yes 04/11/2019 organizations such as voodoo groups, unions, fraternal or athletic groups, or [...] on file documented as of this encounter Medications at Time of Discharge Medication Sig Dispensed Refills Start Date End Date acetaminophen (TYLENOL) Take 1 tablet (500 0 01/2019 500 mg tablet mg total) by mouth every 6 (six) hours as needed for mild pain or score 1-3 of 10. aspirin 81 mg chewable Chew 81 mg daily. 0 2011 tablet calcium carbonate (TUMS) Chew as needed. 0 500 mg (200 mg calcium) chewable tablet estradioL (ESTRACE) 0.1 Use nightly for 14 42 g 3 01/13 mg/g (0.01%) vaginal cream doses, then 2-3 nights each week. gabapentin (NEURONTIN) 100 Take 1 capsule (100 90 capsule 1 11/06/2019 mg capsule mg total) by mouth 3 (three) times a day as needed (Pain). levothyroxine (SYNTHROID, Take 25 mcg by mouth 3 05/21/2019 LEVOTHROID) 25 mcg tablet daily. magnesium oxide 500 mg Take 1 tablet by 0 tablet tablet mouth daily. metFORMIN XR Take 1,000 mg by 3 05/21/2019 (GLUCOPHAGE-XR) 500 mg 24 mouth 2 (two) times hr tablet a day with meals. omega-3 fatty acids-fish Take 500 mg by mouth 0 oil 300-1,000 mg capsule daily. oxybutynin (DITROPAN) 5 mg Take 2.5 mg by mouth 0 01/24/2021 tablet 2 (two) times a day. rosuvastatin (CRESTOR) 5 Take 5 mg by mouth 3 mg tablet at bedtime. documented as of this encounter Plan of Treatment Not on filedocumented as of this encounter Procedures Procedure Name Priority Date/Time Associated Comments Diagnosis DX ABDOMEN 1 VIEW RAD - Routine 07/05/2021 2:49 Constipation Results for this (most inpatients PM BAG SORTER Pain Low Back procedure are in and all Acute the results outpatients) section. documented in this encounter Results DX Abdomen 1 View (07/05/2021 2:49 PM BAG SORTER) Anatomical Region Laterality Modality Abdomen, Abdominal RST LOS, Abdominal ARZ LOS, N/A Digital Radiography Abdominal FLA LOS Specimen (Source) Anatomical Collection Method Collection Time Re ceived Time Location / / Volume Laterality 07/05/2021 3:53 PM BAG SORTER Impressions 07/05/2021 3:54 PM BAG SORTER 1. Nonspecific bowel gas pattern. 2. No nephro or ureterolithiasis identif ied. Narrative 07/05/2021 3:54 PM BAG SORTER EXAM: DX ABDOMEN 1 VIEW COMPARISON: None FINDINGS: Bowel gas pattern is nonspecif ic with gas and stool scattered in nondilated colon. Renal outlines are par tially obscured by overlying bowel gas and stool. No nephro or ureterolithiasis is identified. No abnormal mass or suspicious calcification is noted. There are left pelvic phleboliths. There is some degenerative disc and facet disease in the lower lumbar spine. Procedure Note Torey Panchal Jr., M.D. - 2020 EXAM: DX ABDOMEN 1 VIEW COMPARISON: None FINDINGS: Bowel gas pattern is nonspecif ic with gas and stool scattered in nondilated colon. Renal outlines are par tially obscured by overlying bowel gas and stool. No nephro or ureterolithiasis is identified. No abnormal mass or suspicious calcification is noted. There are left pelvic phleboliths. There is some degenerative disc and facet disease in the lower lumbar spine. IMPRESSION: 1. Nonspecific bowel gas pattern. 2. No nephro or ureterolithiasis identif ied. Dionna Tompkins APRN, R.N. IMG DIAGNOSTIC IMAGING CA OCEDURES documented in this encounter Visit Diagnoses Diagnosis Constipation Pain Low Back Acute documented in this encounter
--- OUTSIDE RECORDS SUMMARY | 2022-05-10 09:49 | XMS_ITS | Encounter Summary ---
:1945 Author Organization [facility] Address [address] [place] [address] Care Team Providers Name Role Phone Unavailable Primary Care Provider Unavailable Encounter Details Date Type Department Care Team Description 10/31/2019 Clinical Communication Department of Uriel Renner , Orthopedic Surgery in M.DJudith [place], [place] [address] [facility] [address] [place] [phone] Social History Tobacco Use Types Packs/Day Years [...] or relatives? How often do you attend restorationism or Not asked alevism services? Do you belong to any clubs or Yes 04/11/2019 organizations such as restorationism groups, unions, fraternal or athletic groups, or [...] this encounter Miscellaneous Notes Telephone Encounter - Faiza Paredes, RJudithN. - 10/31/2019 12:06 PM CDT Patient was contacted to notify them that their appointment with Dr. Renner on November 04 in [place] has been postponed at this time due to COVID- 19 pandemic (elective appointments on hold at this time). Patient will be contacted at a later date to reschedule. Patient verbalizes understanding. documented in this encounter Plan of Treatment Not on filedocumented as of this encounter Visit Diagnoses Not on filedocumented in this encounter
--- OUTSIDE RECORDS SUMMARY | 2022-05-10 09:49 | XMS_ITS | Encounter Summary ---
:1945 Author Organization [facility] Address [address] [place] [address] Care Team Providers Name Role Phone Unavailable Primary Care Provider Unavailable Encounter Details Date Type Department Care Team Description 07/05/2021 Hospital Encounter Department of Dionna Tompkins; Laboratory Medicine A, EDGAR RJudithN Judith Infection Urinary Tract Recurrent in [address] [address] [place], [place] [phone] (Work) [phone] Social History Tobacco Use Types Packs/Day Years [...] or relatives? How often do you attend spiritism or Not asked protestant services? Do you belong to any clubs or Yes 04/11/2019 organizations such as spiritism groups, unions, fraternal or athletic groups, or [...] Date/Time Associated Comments Diagnosis BACTERIAL CULTURE, Routine 07/05/2021 10:50 Dysuria Results for this AEROBIC + SUSC, URINE AM FILM CRITIC Infection Urinary p rocedure are in Tract Recurrent the results section. URINALYSIS WITH Routine 07/05/2021 10:50 Dysuria Results for this MICROSCOPIC AM FILM CRITIC Infection Urinary procedure are in Tract Recurrent the results section. documented in this encounter Results Urinalysis with Microscopic: Urine, Midstream (07/05/2021 10:50 AM FILM CRITIC) Analysis Performed At Patho logist Time Signature Source Urine, Urine, 07/05/2021 OWAT Midstream 11:14 AM FILM CRITIC Clarity Clear Clear 07/05/2021 OWAT 11:14 AM FILM CRITIC Color Yellow 07/05/2021 OWAT 11:14 AM FILM CRITIC Comment: ----REFERENCE VALUE---- Colorless Yellow Julita Blood Negative Negative 07/05/2021 11:14 AM FILM CRITIC [facility] Nitrite Negative Negative 07/05/2021 11:14 AM FILM CRITIC [facility] Leukocyte Esterase Negative Negative 07/05/2021 11:[address] [facility] Protein Negative mg/dL 07/05/2021 11:14 AM FILM CRITIC OW[facility] Comment: ----REFERENCE VALUE---- Negative Trace Glucose Negative Negative mg/dL 07/05/2021 11:14 AM FILM CRITIC O ALIDA Ketone Negative Negative mg/dL 07/05/2021 11:14 AM FILM CRITIC O [place] Bilirubin Negative Negative 07/05/2021 11:14 AM FILM CRITIC OWAT pH 7.5 5.0 - 8.0 07/05/2021 11:14 AM FILM CRITIC OW[facility] Specific [place] 1.007 1.001 - 1.035 07/05/2021 11:14 AM FILM CRITIC OWAT Urobilinogen 0.2 0.2 - 1.0 mg/dL 07/05/2021 11:[address] [facility] White Blood Cells None Seen /hpf 07/05/2021 11:29 AM CS T OWAT Comment: ----REFERENCE VALUE---- Males: 0-3 Females: 0-10 Unknown: 0-10 Red Blood Cells Occ-2 0 - 2 /hpf 07/05/2021 11:29 AM FILM CRITIC OWAT Specimen Anatomical Collection Method Collection Time Receive d Time (Source) Location / / Volume Laterality Urine (Urine, 07/05/2021 10:50 07/05/2021 Midstream) AM FILM CRITIC 11:00 AM FILM CRITIC Dionna Tompkins APRN, R.N. LAB URINE ORDERABLES Performing Organization Address City/[facility]/ZIP [facility] Phon e Number [facility]- [address] [place] [address] [place] [address] System in [place] [address] (ABNORMAL) Bacterial Culture, Aerobic + Susc, Urine (07/05/2021 10:50 AM FILM CRITIC) Analysis Performed At Patho logist Time Signature Urine Culture Mixed 07/06/2021 MKTO lorenzo. (A) 9:12 AM FILM CRITIC Specimen Anatomical Collection Method Collection Time Receive d Time (Source) Location / / Volume Laterality Urine (Urine, 07/05/2021 10:50 07/05/2021 2:14 Midstream) AM FILM CRITIC PM FILM CRITIC Comment: Specimen Source Site: Urine Dionna Tompkins APRN, R.N. LAB MICROBIOLOGY - GENERA L ORDERABLES Performing Organization Address City/[facility]/ZIP [facility] Phon e Number [facility]- [address] [place] [id number] [place] [address] System [address] documented in this encounter Visit Diagnoses Diagnosis Dysuria Infection Urinary Tract Recurrent documented in this encounter
--- OUTSIDE RECORDS SUMMARY | 2022-05-10 09:49 | XMS_ITS | Encounter Summary ---
:1945 Author Organization [facility] Address [address] [place] [address] Care Team Providers Name Role Phone Unavailable Primary Care Provider Unavailable Encounter Details Date Type Department Care Team Description 11/06/2019 Clinical Communication Department of Milly Mason R.N. Orthopedic Surgery in [address] [place] [phone] [place], [place] [phone] (Work) [phone] Social History Tobacco Use Types Packs/Day Years [...] or relatives? How often do you attend confucianist or Not asked temple services? Do you belong to any clubs or Yes 04/11/2019 organizations such as confucianist groups, unions, fraternal or athletic groups, or [...] this encounter Miscellaneous Notes Telephone Encounter - Karlie Benites R.N. - 11/06/2019 11:21 AM CDT Patient notified that Stacy Gunn refilled gabapentin prescription. Addendum Note - Stacy Gunn APRN, C.N.P., D.N.P. - 11/06/2019 11:03 AM CDT Addended by: STACY GUNN on: 11/06/2019 11:03 AM Modules accepted: Orders Telephone Encounter - Stacy Gunn APRN C.N.PJudith, D.N.P. - 11/06/2019 11:01 AM CDT I will refill her gabapentin 100 mg up to 3 times/day if needed. Please ask her to let us know how this is helping her in the next week or so. Thanks. Telephone Encounter - Milly Mason R.N. - 11/06/2019 8:26 AM CDT Patient was scheduled to meet with Dr Renner on 11/05/19 regarding her right shoulder which she injured after revers total arthroplasty (massive rotator cuff repair) on 06/18/2019. Patient is calling to request a refill on Gabapentin 100 mg. Patient states that the oxycodone previously prescribed by Dr Renner does nothing for her. She uses the gabapentin to calm her arm down at night so that she is able to get some sleep. Patient states that the Gabapentin was previously prescribed by the provider whodid her knee surgery. Patient uses the [facility] in [place]. documented in this encounter Plan of Treatment Not on filedocumented as of this encounter Visit Diagnoses Not on filedocumented in this encounter
--- OUTSIDE RECORDS SUMMARY | 2022-05-10 09:49 | XMS_ITS | Encounter Summary ---
:1945 Author Organization [facility] Address [address] [place] [address] Care Team Providers Name Role Phone Unavailable Primary Care Provider Unavailable Encounter Details Date Type Department Care Team Description 01/07/2020 Hospital Encounter Department of Candice Lynch plasty Total Radiology in [facility], Shoulder Replacement [place], [place] C.N.P., D.N.P. Status Post [address] [phone] Social History Tobacco Use Types Packs/Day Years [...] do you attend islam or Not asked buddhist services? Do you belong to any clubs [...] Chew 81 mg daily. 0 2011 tablet gabapentin (NEURONTIN) Take 1 capsule (100 90 capsule 1 10/13 100 mg capsule mg total) by mouth 3 (three) times a day as needed (Pain). levothyroxine (SYNTHROID, Take 25 mcg by 3 2018 LEVOTHROID) 25 mcg tablet mouth daily. metFORMIN XR Take 1,000 mg by 3 05/21/2019 (GLUCOPHAGE-XR) 500 mg 24 mouth 2 (two) times hr tablet a day with meals. omega-3 fatty acids-fish Take 500 mg by 0 oil 300-1,000 mg capsule mouth daily. rosuvastatin (CRESTOR) 5 Take 5 mg by mouth 3 mg tablet at bedtime. aspirin-calcium carbonate Take 81 mg by mouth 0 0 10/07/2011 02/02/2021 81 mg-300 mg calcium(777 daily. mg) tablet estradioL (VIVELLE-DOT) Place 1 patch on 0 201902/02/2021 0.025 mg/24 hr patch the skin once a week. Monday documented as of this encounter Plan of Treatment Not on filedocumented as of this encounter Procedures Procedure Name Priority Date/Time Associated Comments Diagnosis DX SHOULDER RIGHT RAD - Routine 01/07/2020 10:41 Arthroplasty Total Results for this 2+ VIEWS (most inpatients AM CDT Shoulder procedure a re in and all Replacement Status the resul ts outpatients) Post Right section. documented in this encounter Results DX Shoulder Right 2+ [...]
--- OUTSIDE RECORDS SUMMARY | 2022-05-10 09:49 | XMS_ITS | Encounter Summary ---
:1945 Author Organization [facility] Address [address] [place] [address] Care Team Providers Name Role Phone Unavailable Primary Care Provider Unavailable Reason for Referral Physical Therapy (Routine) - Authorized Specialty Diagnoses / Procedures Referred By Contact Refer red To Contact Diagnoses Radiculopathy Cervical Uriel Renner M.D. [address] [place] [address] Referral ID Status Reason Start Expiration Visits Visits Date Date Requested Authorized [id number] Authorized Patient 11/16/2021 11/16/2022 99 99 Preference Outpatient (Routine) - Closed Specialty Diagnoses / Procedures Referred By Contact Refer red To Contact Diagnoses Aftercare Total Shoulder Arthroplasty Uriel Renner M.D. [facility] Region Procedures DX Shoulder Right 2+ Views [address] [place] [address] Referral ID Status Reason Start Date Expiration Date Visits Requ ested Visits Authorized [id number] Closed 11/16/2021 11/16/2022 1 1 Reason for Visit Reason Comments Pain Fell from horse in May a nd has had from shoulder to elbow periodically Arthroplasty Fell from horse in May a nd has had from shoulder to elbow periodically Appointment Request (Routine) - Closed Specialty Diagnoses / Procedures Referred By Contact Refer red To Contact Referral ID Status Reason Start Date Expiration Date Visits Requ ested Visits Authorized [id number] Closed 10/25/2021 10/25/2022 1 Encounter Details Date Type Department Care Team Description 11/16/2021 Comprehensive Visit Department of Uriel Renner Total Shoulder Arthroplasty (Primary Dx); Orthopedic Surgery Tian Cook Radiculopathy Cervical in [place] [phone] [facility] [phone] [place], [place] (Work) [phone] Social History Tobacco Use Types Packs/Day Years [...] or relatives? How often do you attend quaker or Not asked pentecostal services? Do you belong to any clubs or Yes 04/11/2019 organizations such as quaker groups, unions, fraternal or athletic groups, or [...] on file documented as of this encounter Consult Notes Uriel Renner M.D. - 11/16/2021 9:15 AM CDT HISTORY OF PRESENT ILLNESS Heather is a 76-year-old woman who is seen in regard to her right shoulder . She sustained injury when she was with a horse and subsequently had the onset of significant shoulder pain and difficulties with her shoulder hurting. She wondered if she caused significant damage. She is here today for followup of this. She states that the shoulder pain has improved substantially and really has returned nearly to normal. OBJECTIVE PHYSICAL EXAMINATION Musculoskeletal : Examination of the shoulder range of motion revealed forward flex to 110 degrees. Abduction is 90 degrees. External rotation is 50 degrees. On strength testing, external rotation strength is nearly 5 out of 5, internal rotation strength is 5 out of 5, and supraspinatus strength is 4 to 5 out of 5. DIAGNOSTICS X-rays of her right shoulder obtained today demonstrate the reverse total shoulder arthroplasty appears to be in good position without any signs of loosening. ASSESSMENT / PLAN Heather is a 76-year-old woman who sustained an injury to her right shoulder but x-rays look benign and her symptoms are substantially improving. We will plan to see her back on an as-needed basis. documented in this encounter Plan of Treatment Scheduled Referrals Name Type Priority Associated Diagnoses Order S savanah [facility] Outpatient Referral Routine Radiculopathy Cervica l Expected: referral 11/16/2021 (Approximate), Expires: 02/15/2023 documented as of this encounter Results DX Shoulder Right 2+ Views (11/16/2021 9:12 AM CDT) Anatomical Region Laterality Modality Upper Extremity, Shoulder, Musculoskeletal RST LOS, Right Digital Radiography Musculoskeletal ARZ LOS, Muskuloskeletal FLA LOS Specimen (Source) Anatomical Collection Method Collection Time Re ceived Time Location / / Volume Laterality 11/16/2021 12:00 PM CDT Impressions 11/16/2021 12:03 PM CDT Right reverse TSA. Persistent lucency about the glenoid screws. Mild scapular notching. Right distal clavicle resection. Narrative 11/16/2021 12:03 PM CDT EXAM: ??DX SHOULDER RIGHT 2+ VIEWS Procedure Note Rowdy Xavier M.D. - 11/16/2021Forma tting of this note might be different from the original. EXAM: DX SHOULDER RIGHT 2+ VIEWS IMPRESSION: Right reverse TSA. Persistent lucency ab out the glenoid screws. Mild scapular notching. Right distal clavicle resection. [facility]riel [facility] PATRICIA BUCK documented in this encounter Visit Diagnoses Diagnosis Aftercare Total Shoulder Arthroplasty - Primary Radiculopathy Cervical Aftercare Total Shoulder Arthroplasty documented in this encounter
--- OUTSIDE RECORDS SUMMARY | 2022-05-10 09:49 | XMS_ITS | Encounter Summary ---
:1945 Author Organization [facility] Address [address] [place] [address] Care Team Providers Name Role Phone Unavailable Primary Care Provider Unavailable Reason for Referral Outpatient (Routine) - Closed Specialty Diagnoses / Procedures Referred By Contact Refer red To Contact Diagnoses Aftercare Total Shoulder Arthroplasty Uriel Renner M.D. [facility] [place] Region Procedures DX Shoulder Right 2+ Views [address] [place] [address] Referral ID Status Reason Start Date Expiration Date Visits Requ ested Visits Authorized [id number] Closed 11/16/2021 11/16/2022 1 1 Reason for Visit Outpatient (Routine) - Closed Specialty Diagnoses / Procedures Referred By Contact Refer red To Contact Diagnoses Aftercare Total Shoulder Arthroplasty [facility]. [facility] [place] [facility] Procedures DX Shoulder Right 2+ Views [address] [place] [address] Referral ID Status Reason Start Date Expiration Date Visits Requ ested Visits Authorized [id number] Closed 11/16/2021 11/16/2022 1 1 Encounter Details Date Type Department Care Team Description 11/16/2021 Hospital Encounter Department of Uriel Renner After care Total Radiology in Jono Cook M.D. Shoulder [place], [place] [address] [facility] [address] [address] [place], [place] [phone] (Work) [phone] Social History Tobacco Use Types Packs/Day Years [...] or relatives? How often do you attend jewish or Not asked zoroastrianism services? Do you belong to any clubs or Yes 04/11/2019 organizations such as jewish groups, unions, fraternal or athletic groups, or [...] Diagnosis DX SHOULDER RIGHT RAD - Routine 11/16/2021 9:12 Aftercare Total Res ults for this 2+ VIEWS (most inpatients AM CDT Shoulder procedure a re in and all Arthroplasty the results outpatients) section. documented in this [...] distal clavicle resection. Uriel [facility] PROCE CIELO documented in this encounter Visit Diagnoses Diagnosis Aftercare Total Shoulder Arthroplasty documented in this encounter
--- OUTSIDE RECORDS SUMMARY | 2022-05-10 09:49 | XMS_ITS | Encounter Summary ---
:1945 Author Organization [facility] Address [address] [place] [address] Care Team Providers Name Role Phone Unavailable Primary Care Provider Unavailable Reason for Visit Reason Comments Consult Flank pain Urinary Frequency Urinary Urgency Appointment Request (Routine) - Closed Specialty Diagnoses / Procedures Referred By Contact Refer red To Contact Urology Referral ID Status Reason Start Date Expiration Date Visits Requ ested Visits Authorized [id number] Closed 07/05/2021 07/05/2022 1 1 Encounter Details Date Type Department Care Team Description 07/05/2021 Office Visit Department of Urology Dionna Tompkins nstipation (Primary Dx); in Sharron James, EDGAR, R.NJudith Pain Low Back Acute; [place] [address] Infection Urinary Tract Recurrent [address] [place] [phone] Social History Tobacco Use Types Packs/Day Years [...] or relatives? How often do you attend tenriism or Not asked jain services? Do you belong to any clubs or Yes 04/11/2019 organizations such as tenriism groups, unions, fraternal or athletic groups, or [...] Sign Reading Time Taken Comments Blood Pressure - - Pulse 71 07/05/2021 2:00 PM AUTOMATIC BRINE MIXER OPERATOR Temperature 35.7 ??C (96.3 ??F) 07/05/2021 2:00 PM AUTOMATIC BRINE MIXER OPERATOR Respiratory Rate - - Oxygen Saturation 99% 07/05/2021 2:00 PM AUTOMATIC BRINE MIXER OPERATOR RA Inhaled Oxygen Concentration - - Weight - - Height - - Body Mass Index - - documented in this encounter Progress Notes Dionna Tompkins, EDGAR, C.N.P. - 07/05/2021 2:00 PM CST SUBJECTIVE CHIEF COMPLAINT/REASON FOR VISIT Chief Complaint Patient presents with ??? Consult Flank pain ??? Urinary Frequency ??? Urinary Urgency HISTORY OF PRESENT ILLNESS Heather is a pleasant 75-year-old female here today for an acute visit. She has history of recurrent Urinary Tract Infections and urinary urgency and frequency. She has not had any symptomatic infections since January. Urine was tested prior to this appointment, this does not show any abnormalities. She states that for about 2 weeks she has been having severe left-sided pain, pointing at her SI joint. She states that the pain sometimes radiates down into her gluteus, she sometimes has pain that radiates down the front of her leg. She had visible blood in her urine last that resolved. Shehas history of constipation and has been having bowel movements on most days, her stool is very hardand difficult to pass. She has not had any recent injuries. She does state that about 2 months ago she fell off her horse and landed flat on her back. She did not have any pain or discomfort after thatfall. The following portions of the patient's history were reviewed and updated as appropriate: allergies,current medications, family history, medical history, social history, surgical history and problem list. REVIEW OF SYSTEMS Genitourinary: Left low back pain, constant for more than a week. Blood present last , then went away. Heating pad helps. Tylenol was not helpful, neither was ibuprofen. Rates pain /. OBJECTIVE Vitals: 07/05/21 1400 Pulse: 71 Temp: (!) 35.7 ??C SpO2: 99% TempSrc: Temporal PHYSICAL EXAM Vitals and nursing note reviewed. General: Well developed, well nourished, well groomed female in no acute distress. Neurological: Alert, cooperative, oriented x3. Appropriate mood and affect. Head: Normal appearance, no abnormalities, normocephalic. Neck: Symmetrical and supple, trachea is midline. Cardiac: regular rate, regular rhythm Respiratory: Respirations are unlabored with normal respiratory rate and normal respiratory movements. Normal chest wall expansion without use of accessory muscles. Abdomen: Soft, globally non-tender, non-distended. Extremities: Warm, without edema or ulcerations. DIAGNOSTICS Results for orders placed or performed during the hospital encounter of 07/05/21 Urinalysis with Microscopic: Urine, Midstream Result Value Ref Range Source Urine, Urine, Midstream Clarity Clear Clear Color Yellow Blood Negative Negative Nitrite Negative Negative Leukocyte Esterase Negative Negative Protein Negative mg/dL Glucose Negative Negative mg/dL Ketone Negative Negative mg/dL Bilirubin Negative Negative pH 7.5 5.0 - 8.0 Specific [place] 1.007 1.001 - 1.035 Urobilinogen 0.2 0.2 - 1.0 mg/dL White Blood Cells None Seen /hpf Red Blood Cells Occ-2 0 - 2 /hpf EXAM: DX ABDOMEN 1 VIEW ?? COMPARISON: None ?? FINDINGS: Bowel gas pattern is nonspecific with gas and stool scattered in nondilated colon. Renal outlines are partially obscured by overlying bowel gas and stool. No nephro or ureterolithiasis is identified. No abnormal mass or suspicious calcification is noted. There are left pelvic phleboliths. There is some degenerative disc and facet disease in the lower lumbar spine. ?? IMPRESSION: 1. Nonspecific bowel gas pattern. 2. No nephro or ureterolithiasis identified. ASSESSMENT / PLAN #1 History of Recurrent UTI's #2 Left Low Back Pain #3 Constipation Her urine is very clear, no sign of infection. Her abdominal x-ray does not show any sign of stones or urological changes. She does have a significant amount of stool in the colon. It is recommended that she use MiraLax, 3 capsules in a bottle of Gatorade to get her bowels moving. She should continue to use heating pad, ibuprofen or Tylenol, warm showers. If her symptoms worsen, she should be seen inurgent care or emergency department. Follow-up in the Urology Department as needed. All questions answered today. Signed by: Dionna Tompkins APRN, C.N.P. 07/05/2021 2:20 PM AUTOMATIC BRINE MIXER OPERATOR MATIC BRINE MIXER OPERATOR documented in this encounter Plan of Treatment Not on filedocumented as of this encounter Results DX Abdomen 1 View (07/05/2021 2:49 PM AUTOMATIC BRINE MIXER OPERATOR) Anatomical Region Laterality Modality Abdomen, Abdominal RST LOS, Abdominal ARZ LOS, N/A Digital Radiography Abdominal FLA LOS Specimen (Source) Anatomical Collection Method Collection Time Re ceived Time Location / / Volume Laterality 07/05/2021 3:53 PM AUTOMATIC BRINE MIXER OPERATOR Impressions 07/05/2021 3:54 PM AUTOMATIC BRINE MIXER OPERATOR 1. Nonspecific bowel gas pattern. 2. No nephro or ureterolithiasis identif ied. Narrative 07/05/2021 3:54 PM AUTOMATIC BRINE MIXER OPERATOR EXAM: DX ABDOMEN 1 VIEW COMPARISON: None [...] nephro or ureterolithiasis identif ied. Dionna Tompkins APRN RWilfredo. [facility] RI OCEDURES documented in this encounter Visit Diagnoses Diagnosis Constipation - Primary Pain Low Back Acute Infection Urinary Tract Recurrent Constipation Pain Low Back Acute documented in this encounter
--- OUTSIDE RECORDS SUMMARY | 2022-05-10 09:50 | XMS_ITS | Encounter Summary ---
:1945 Author Organization [facility] Address [address] [place] [address] Care Team Providers Name Role Phone Unavailable Primary Care Provider Unavailable Encounter Details Date Type Department Care Team Description 06/18/2019 Surgery [facility] DANIEL OR Uriel Renner, ARTHROPLASTY TOTAL [id number] [place] [address] M.D. REVERSE SHOULD[place], [place] [address] [place] [id number] [place], [place] [phone] (Wo rk) Social History Tobacco Use Types Packs/Day Years [...] or relatives? How often do you attend latter-day or Not asked presybeterian services? Do you belong to any clubs or Yes 04/11/2019 organizations such as latter-day groups, unions, fraternal or athletic groups, or [...] Sign Reading Time Taken Comments Blood Pressure 109/77 06/18/2019 10:00 AM BUNCH BREAKER MACHINE OPERATOR Pulse 68 06/18/2019 10:00 AM BUNCH BREAKER MACHINE OPERATOR Temperature 36.3 ??C (97.3 ??F) 06/18/2019 10:00 AM BUNCH BREAKER MACHINE OPERATOR Respiratory Rate 12 06/18/2019 10:00 AM BUNCH BREAKER MACHINE OPERATOR Oxygen Saturation 95% 06/18/2019 10:00 AM BUNCH BREAKER MACHINE OPERATOR Inhaled Oxygen Concentration - - Weight - - Height 162.6 cm (5' 4.02) 06/18/2019 7:11 AM BUNCH BREAKER MACHINE OPERATOR Body Mass Index - - documented in this encounter Discharge Summaries Arelis Samaniego M.D. - 06/19/2019 8:38 AM CST Heather Harrell [phone] DATE OF ADMISSION: 06/18/2019 LOS: 1 day DATE OF DISCHARGE: 06/19/19 ADMITTING PROVIDER: Uriel M Renner, M.D. ADMITTING DIAGNOSES (All present on admission): PRINCIPAL DIAGNOSIS Arthroplasty Total Shoulder Replacement Status Post Right SECONDARY DIAGNOSES Principal Problem: Arthroplasty Total Shoulder Replacement Status Post Right Active Problems: Pain Shoulder Right Hyperlipidemia Diabetes Mellitus Type 2 Without Complication (HCC) Hypothyroidism Insomnia Resolved Problems: Pain Joint Surgery Information This Encounter Past Procedures (06/19/2018 to Today) Date Procedures Providers Location 06/18/2019 ARTHROPLASTY TOTAL REVERSE SHOULDER Uriel Renner M.D. [facility] OR DISCHARGE DIAGNOSIS: #1 Arthroplasty Total Shoulder Replacement Status Post Right #2 Pain Shoulder Right #3 Hyperlipidemia #4 Diabetes Mellitus Type 2 Without Complication (HCC) #5 Hypothyroidism #6 Insomnia CODE STATUS :Full Code CONSULTS DURING HOSPITALIZATION: none PERTINENT DIAGNOSTICS: No results found. FOR HISTORY OF PRESENT ILLNESS, PAST MEDICAL HISTORY, ALLERGIES, MEDICATIONS ON ADMISSION, SOCIAL HISTORY AND FAMILY HISTORY: See admission History and Physical. HOSPITAL COURSE:Patient is a 73 y.o. year old female who was admitted for R Reverse total shoulder arthroplasty . She tolerated procedure well with out any complications.Pain control was adequate in the immediate post op period and patient progressed as anticipated.Physiotherapy and Occupational therapy was initiated on day 2 and she tolerated therapy well.Patient met goals per therapy at discharge and is scheduled for ongoing therapy as out patient .Patient will follow up with PCP in 1 week and 2 weeks with the Surgeon. Herchronic medical problems were stable during the hospital stay.Patient discharged in a stable state. Discharge Exam BP (!) 123/50 (BP Location: Left arm;Upper, Patient Position: Lying) Pulse 84 Temp 36 ??C (Temporal) Resp 16 Ht 162.6 cm Wt 72.5 kg SpO2 97% BMI 27.42 kg/m?? GENERAL: Patient is in no distress. Capable of full communication without difficulty. Patient is polite and cooperative. Appropriately dressed and normal hygiene. HEENT: Normocephalic. EOMI, PERRLA, Canals patent, TMs normal. Oropharynx without lesion of mucosa. Pharyngeal rises symmetrically without exudate. NECK: No nodes, no thyromegaly. No bruit auscultated. HEART: Regular rate and rhythm. No murmurs, gallops or rubs noted. LUNGS: Clear to auscultation bilaterally. No expiratory wheeze. No accessary muscles of respiration noted. EXTREMITIES: No neurovascular compromise. No cyanosis, clubbing or edema RIGHT upper extremity: Dressing clean, dry, and intact Sensation intact to light touch in R upper extremity ROM in forearm and hand -intact. Hand warm & well perfused with intact distal pulses Labs: Lab Results Component Value Date HGB 12.7 06/18/2019 Lab Results Component Value Date NA 137 03/20/2019 K 4.5 03/20/2019 CREATININE 0.7 03/20/2019 BUN 13 03/20/2019 GLUCOSE 186 (H) 06/19/2019 DISCHARGE MEDICATIONS: Heather Harrell Home Medication Instructions BIMAL:[id number] Printed on:06/19/19 0860 Medication Information acetaminophen (TYLENOL) 500 mg tablet Take 1 tablet (500 mg total) by mouth every 6 (six) hours as needed for mild pain or score 1-3 of 10. aspirin-calcium carbonate 81 mg-300 mg calcium(777 mg) tablet Take 81 mg by mouth daily. bisacodyl (DULCOLAX) 10 mg suppository Insert 1 suppository (10 mg total) into the rectum daily as needed for constipation. estradiol (ESTRACE) 0.5 mg tablet Take 0.5 mg by mouth daily. levothyroxine (SYNTHROID, LEVOTHROID) 25 mcg tablet Take 25 mcg by mouth daily. metFORMIN XR (GLUCOPHAGE-XR) 500 mg 24 hr tablet Take 1,000 mg by mouth as directed. omega-3 fatty acids-fish oil 300-1,000 mg capsule Take 500 mg by mouth daily. oxyCODONE (ROXICODONE) 5 mg immediate release tablet Take 1 tablet (5 mg total) by mouth every 4 (four) hours as needed for moderate pain or score 4-6 of10 for up to 3 days Indication: Acute Pain. rosuvastatin (CRESTOR) 5 mg tablet Take 5 mg by mouth at bedtime. sennosides-docusate sodium (SENOKOT-S) 8.6-50 mg per tablet Take 1 tablet by mouth 2 (two) times a day. Discharge Condition stable DISPOSITION: home ACTIVITY: Up as Tolerated Outpatient Orders Follow-up with No primary care provider on file. IN 3-5 DAYS Follow Up Labs:Labs to be done Prior to appointment :None TIME SPENT DISCHARGING PATIENT: More than 30min On day of discharge I saw and examined the patient and we discussed the follow up plan. The patient expressed understanding and agreement of it. On the date of discharge I spent more than 30 minutes on a face to face encounter with the patient and answer all the questions to her satisfaction. Discharge instructions were provided to the patient and caregiver(s). Arelis Samaniego M.D. 06/19/20198:38 AM H BREAKER MACHINE OPERATOR documented in this encounter Discharge Instructions Discharge Instr - [facility] Follow-UpsVinita Urbina R.N. - 06/19/2019 9:[address] García PCP appointment is on Jun 25 at 9:45am check in. [facility] is on 06-26-19 at 2:30pm H BREAKER MACHINE OPERATOR documented in this encounter Medications at Time of Discharge Medication Sig Dispensed Refills Start Date End Date levothyroxine (SYNTHROID, Take 25 mcg by mouth 3 05/21/2019 LEVOTHROID) 25 mcg tablet daily. metFORMIN XR Take 1,000 mg by 3 05/21/2019 (GLUCOPHAGE-XR) 500 mg 24 mouth 2 (two) times hr tablet a day with meals. rosuvastatin (CRESTOR) 5 Take 5 mg by mouth 3 mg tablet at bedtime. acetaminophen (TYLENOL) Take 1 tablet (500 0 01/2019 500 mg tablet mg total) by mouth every 6 (six) hours as needed for mild pain or score 1-3 of 10. aspirin 81 mg chewable Chew 81 mg daily. 0 2011 tablet omega-3 fatty acids-fish Take 500 mg by mouth 0 oil 300-1,000 mg capsule daily. estradiol (ESTRACE) 0.5 Take 0.5 mg by mouth 0 01/07/2020 mg tablet daily. oxyCODONE (ROXICODONE) 5 Take 1 tablet (5 mg 18 tablet 0 06/22/2019 mg immediate release total) by mouth tabletIndications: Acute every 4 (four) hours Pain as needed for moderate pain or score 4-6 of 10 for up to 3 days Indication: Acute Pain. aspirin-calcium carbonate Take 81 mg by mouth 0 0 10/07/2011 02/02/2021 81 mg-300 mg calcium(777 daily. mg) tablet sennosides-docusate Take 1 tablet by 60 tablet 11 06/19/2019 01/07/2020 sodium (SENOKOT-S) 8.6-50 mouth 2 (two) times mg per tablet a day. documented as of this encounter H&P Notes Uriel Renner M.D. - 06/19/2019 7:10 AM CST INTERVAL HISTORY AND PHYSICAL PRE-PROCEDURE UPDATE H&P reviewed. The patient was examined and there are no significant changes to the H&P. I discussed with this patient the Risks, Benefits, Alternatives of treatment for their orthopedic condition at length today. The patient understands these. All questions were answered and they desire to precede with surgical treatment. Uriel Renner M.D. H BREAKER MACHINE OPERATOR Source Note - Nicolas, Default Authenticator - 06/13/2019 8:52 AM CDT Arelis Samaniego M.D. - 06/18/2019 11:53 AM CST CHIEF COMPLAINT Aftercare R shoulder arthroplasty HISTORY OF PRESENT ILLNESS Patient is a 73 y.o. Caucasianfemale who is seen in the immediate postop period following R shoulder arthroplasty . This is a elective procedure and patient has been in good health prior to the procedure. At present she voices no concerns and notes her pain is adequately controlled MEDICATIONS Current Outpatient Medications on File Prior to Encounter Medication Sig Last Dose ??? acetaminophen (TYLENOL) 325 mg tablet Take 325-650 mg by mouth every 4 (four) hours as needed for pain. Past Week at Unknown time ??? estradiol (ESTRACE) 0.5 mg tablet Take 0.5 mg by mouth daily. Past Week at Unknown time ??? levothyroxine (SYNTHROID, LEVOTHROID) 25 mcg tablet Take 25 mcg by mouth daily. Past Week at Unknown time ??? metFORMIN XR (GLUCOPHAGE-XR) 500 mg 24 hr tablet Take 1,000 mg by mouth as directed. 06/17/2019 at Unknown time ??? rosuvastatin (CRESTOR) 5 mg tablet Take 5 mg by mouth at bedtime. 06/17/2019 at Unknown time ??? aspirin-calcium carbonate 81 mg-300 mg calcium(777 mg) tablet Take 81 mg by mouth daily. More than a month at Unknown time ??? omega-3 fatty acids-fish oil 300-1,000 mg capsule Take 500 mg by mouth daily. More than a month at Unknown time ??? [DISCONTINUED] gabapentin (NEURONTIN) 100 mg capsule Take 100 mg by mouth 3 (three) times a day. ALLERGIES Allergies Allergen Reactions ??? Atorvastatin Myalgia ??? Codeine Nausea Only, Nausea And Vomiting and GI intolerance ??? Ezetimibe Myalgia ??? Pravastatin Other (see comments) Body aches PAST MEDICAL HISTORY Past Medical History: Diagnosis Date ??? Constipation ??? Diabetes Mellitus Type 2 Without Complication (HCC) ??? Diverticulitis ??? Gastroesophageal Reflux Disease NOS ??? Hyperlipidemia ??? Hypothyroidism ??? Insomnia ??? Pain Chest Atypical ??? Post Operative Nausea/Vomiting ??? Sickness Motion Personal History PAST SURGICAL HISTORY Past Surgical History: Procedure Laterality Date ??? ABDOMINAL SURGERY hysterectomy ??? COLONOSCOPY 2017 ??? ELBOW FRACTURE SURGERY ??? ESOPHAGOGASTRODUODENOSCOPY 2017 Erosive gastropathy ??? EYE SURGERY Repair of Retinal defect by laser photocoagulation ??? EYE SURGERY Cataract removal ??? JOINT REPLACEMENT left knee arthroplasty ??? PARTIAL HYSTERECTOMY ??? ROTATOR CUFF REPAIR Right ??? ROTATOR CUFF REPAIR Left ??? TOE SURGERY Right SOCIAL HISTORY Social History Socioeconomic History ??? Marital status: Spouse name: Not on file ??? Number of children: Not on file ??? Years of education: Not on file ??? Highest education level: Not on file Occupational History ??? Not on file Social Needs ??? Financial resource strain: Not hard at all ??? Food insecurity: Worry: Never true Inability: Not on file ??? Transportation needs: Medical: No Non-medical: Not on file Tobacco Use ??? Smoking status: Former Smoker Packs/day: 0.00 ??? Smokeless tobacco: Never Used Substance and Sexual Activity ??? Alcohol use: Yes Frequency: Monthly or less ??? Drug use: Not on file ??? Sexual activity: Defer Lifestyle ??? Physical activity: Days per week: 1 day Minutes per session: Not on file ??? Stress: Not on file Relationships ??? Social connections: Talks on phone: More than three times a week Gets together: Three times a week Attends presybeterian service: Not on file Active member of club or organization: Yes Attends meetings of clubs or organizations: Not on file Relationship status: Not on file ??? Intimate partner violence: Fear of current or ex partner: Not on file Emotionally abused: Not on file Physically abused: Not on file Forced sexual activity: Not on file Other Topics Concern ??? Not on file Social History Narrative ??? Not on file FAMILY HISTORY Family History Problem Relation Age of Onset ??? Coronary artery disease Father ??? Diabetes Sister ??? Cancer Sister ??? Scleroderma Sister ??? Coronary artery disease Brother ??? Thyroid disease Daughter ??? Cancer Maternal Grandmother ??? Cancer Other colon cancer REVIEW OF SYSTEMS GENERAL: No weight gain, no weight loss, no fever in past month, no chills, no sweats. EENT: No vision changes, no eye pain, no sinus problems, no difficulty swallowing, no hearing difficulty PULMONARY: No shortness of breath, no cough, no wheezing, no sputum, no hemoptysis CARDIAC: no chest pain, no chest pressure, no rapid beating, no irregular beating,diag GI: No abdominal pain, nausea, vomiting, diarrhea, constipation, black or bloody stools : No burning/pain with urination, no difficulty starting stream, no difficulty emptying bladder, no urgency, no hematuria. MUSCULOSKELETAL: No joint pain or swelling. SKIN: No skin rashes NEURO: No significant headaches, no slurred speech, no seizures, no dizziness, no loss of consciousness, no memory loss ENDOCRINE: No excessive thirst, no excessive bruising. VITAL SIGNS Vitals: 06/18/19 1129 BP: 152/62 Pulse: 68 Resp: 16 Temp: 36.4 ??C SpO2: 98% PHYSICAL EXAM GENERAL: Patient is in no distress. Alert and oriented. HEENT: Normocephalic. Trachea midline. Oropharynx pink, moist. Sclera white. PERRL HEART: Regular rate and rhythm. S1S2. No murmurs, gallops or rubs noted. LUNGS: Respirations easy and unlabored. Clear to auscultation bilaterally. No expiratory wheeze. No accessory muscles of respiration noted. ABDOMEN: Soft, no abdominal tenderness with palpation. No peritonitis. No mass. Active bowel sounds in all 4 quadrants. NEURO: Cranial nerves II-XII intact. Face symmetrical, speech clear. 5/5 dorsi/plantar flexion. Strong grasp bilaterally. Light touch sensation intact and symmetrical in all extremities. EXTREMITIES: No neurovascular compromise. No cyanosis, clubbing or edema. SKIN: Warm, dry. No rash, bruising, or ulceration. RIGHT Upper extremity: Dressing clean, dry, and intact Sensation intact to light touch distally in hand ROM at R hand intact. Hand warm & well perfused with intact distal pulses LAB RESULTS Lab Results Component Value Date HGB 12.7 06/18/2019 Lab Results Component Value Date NA 137 03/20/2019 K 4.5 03/20/2019 CREATININE 0.7 03/20/2019 BUN 13 03/20/2019 GLUCOSE 152 (H) 06/18/2019 Lab Results Component Value Date ALT 29 03/20/2019 AST 29 03/20/2019 ALKPHOS 56 03/20/2019 BILITOT 0.5 03/20/2019 IMPRESSION: #1 Arthroplasty Total Shoulder Replacement Status Post Right #2 Pain Shoulder Right #3 Hyperlipidemia #4 Diabetes Mellitus Type 2 Without Complication (HCC) #5 Hypothyroidism #6 Insomnia PLAN: 1.Pt will be admitted for aftercare following R shoulder arthroplasty 2.Pain management per protocol. 3.Will Initiate PT per protocol. 4.Will follow Hgb and labs as needed. 5.Will monitor BS and use sliding scale insulin for better BS control. 6. Will continue meds for chronic medical problems. 7.SS consult for Discharge planning Expected Discharge Date:06/20/19 . Projected disposition: Home - self care. HOSPITAL CARE ISSUES Code status: Full Code IV fluids: IV and Feeding Tubes Active Currently Name: Placement date: Placement time: Site: Days: Peripheral IV Catheter 06/18/19 22 G Left Hand 06/18/19 0738 Hand less than 1 Diet:Current Diet Adult Diet Regular starting at 06/18 1130 VTE PPX: GI PPX:Not indicated PAIN:Oxycodone and Tylenol H BREAKER MACHINE OPERATOR documented in this encounter Consult Notes Cher Posada, OTegan. - 06/19/2019 10:35 AM CST Consults Patient was able to complete TB dressing with minimal assistance to thread R UE through sleeve. Patient is able to complete toileting and ambulation with [place]. Patient's spouse will be able to assist Patient at home with ADLs as needed. Patient does not require any further skilled OT at this time. H BREAKER MACHINE OPERATOR Latrice Sena P.T. - 06/19/2019 9:33 AM CST Physical Therapy Inpatient Evaluation/Treatment SUBJECTIVE Patient's Name: Heather Abdalla Julio Cesar Referring/Attending Provider: Arelis Samaniego M.D. Medical Diagnosis: Pain Shoulder Right [M25.511] Pain Joint [M25.50] Reason for Referral: PT eval and treat Onset Date: 06/18/19 Payor: MEDICARE / Plan: MEDICARE A AND B / Product Type: Medicare / PERTINENT MEDICAL / SURGICAL HISTORY: Patient Active Problem List Diagnosis ??? Pain Shoulder Right ??? Primary Osteoarthritis Shoulder Right ??? Hyperlipidemia ??? Diabetes Mellitus Type 2 Without Complication (HCC) ??? Hypothyroidism ??? Insomnia ??? Constipation ??? Polyp Colon Adenomatous ??? Primary Osteoarthritis Knee Left ??? Primary Osteoarthritis Knee Right ??? Pain Chest ??? Nevus Pigmented ??? Encounter For Other Orthopedic Aftercare ??? Arthroplasty Total Shoulder Replacement Status Post Right Past Surgical History: Procedure Laterality Date ??? ABDOMINAL SURGERY hysterectomy ??? COLONOSCOPY 2017 ??? ELBOW FRACTURE SURGERY ??? ESOPHAGOGASTRODUODENOSCOPY 2017 Erosive gastropathy ??? EYE SURGERY Repair of Retinal defect by laser photocoagulation ??? EYE SURGERY Cataract removal ??? JOINT REPLACEMENT left knee arthroplasty ??? PARTIAL HYSTERECTOMY ??? ROTATOR CUFF REPAIR Right ??? ROTATOR CUFF REPAIR Left ??? TOE SURGERY Right History of Present Illness: Reverse R TSA Family/Caregiver Present: No Patient Comments: Pt was doing well, no pain, no complaints. Activity Orders (From admission, onward) Start Ordered 06/18/19 1130 Activity: Up with Assistance Until discontinued Question: Activity Level: Answer: Up with Assistance 06/18/19 1129 Precautions Other Precautions: R Rev TSA: sling 6 weeks, no IR/ER, no active use R UE OBJECTIVE Pain Assessment Pain Assessment: 0-10 Numeric Pain Intensity Scale Pain Score: 0 - No pain Pt in bed prior to session, willing to participate. Vitals seated at EOB prior to mobilizin/70 mmHg, HR 75, oxygen at 96% Measures - Tools AM-PAC Mobility: How much difficulty does the patient currently have??? Turning over in bed (including adjusting bedclothes, sheets and blankets)?: None Sitting down on and standing up from a chair with arms (e.g., wheelchair, bedside commode, etc.): None Moving from lying on back to sitting on the side of the bed?: None AM-PAC Mobility: How much help from another person does the patient currently need??? Moving to and from a bed to a chair: None Need to walk in hospital room?: None Climbing 3-5 steps with a railing?: None AM-PAC Mobility: Score Basic Mobility Raw Score: 24 Basic Mobility Standardized Score: 61.14 CMS 0-100% Score: 0 % Basic Mobility CMS Modifier: CH Cognition Overall Cognitive Status: Intact Arousal/Alertness: Appropriate responses to stimuli Attention: Addressed, no concerns noted Orientation: Oriented X4 Following Commands: Follows all commands and directions without difficulty Safety / Judgment: Addressed, no concerns noted Impulsive: Addressed, no concerns noted General ROM / Strength Screening ROM - Upper Extremity Screen: (R UE to about 45 degrees flexion in scapular plane) Bed Mobility Bed Mobility: Yes Bed Mobility - Supine to Sit Level of Assistance: Independent Device: None Bed Mobility - Sit to Supine Level of Assistance: Independent Device: None Bed Mobility - Scooting Level of Assistance: Independent Device: None Transfer - Sit to Stand Level of Assistance: Independent Transfer - Stand to Sit Level of Assistance: Independent Transfers Transfer: Yes Transfers - Toilet Level of Assistance: Independent Balance Static Sitting-Balance: Good (Maintains balance without support) Static Standing-Balance: Good (Maintains balance without support) Gait Assessment Level of Assistance: Independent Device: None Distance (m): (110 ft x 2) Surface: level Stairs Level of Assistance: Independent # Stairs: 8 Rails: 1 Comments: (educated on how to use R rail and L rail with only L UE) Assessment Discharge Considerations: Discharge Recommendation: Ongoing skilled outpatient therapy recommended Clinical Impression: Ms. Harrell is a 73 y.o. who has been hospitalized 1 day(s) with an admittingdiagnosis of: Pain Shoulder Right [M25.511] Pain Joint [M25.50]. Prior to hospitalization patient was completing daily activities independently. Currently, patient presents with impairments including impaired R UE ROM and strength s/p Reverse TSA resulting in the following functional deficits: decreased functional use of R UE Rehab potential: Ms. Harrell has potential to achieve established physical therapy goals within the time frame outlined below. Education was provided regarding evaluative findings, diagnosis, prognosis, potential risks and benefits of rehabilitation interventions. Therapy findings and recommendations were discussed with Heather The treatment plan and discharge recommendations may be modified based upon pt response to treatment. Comorbidities: None Personal Factors: None Clinical Presentation: Stable Examination elements: 1-2 Clinical Decision Making: Low: no complicating factors, 1-2 eval elements, stable clinical presentation Functional Goals and Timeframes: None Plan Patient agrees with the plan of care and goals. Plan: Discontinue therapy PT Frequency: PT Duration: IE only Inpatient PT Received On Date: 06/19/19 Requires Inpatient Follow-Up: No Next Inpatient Appointment: Plan for next session: Plan Comments: Pt will initiate OP PT one week post op to ensure ROM is going well at home with . She was given exercise sheet and Protocol Other PT Comments: Pt left to rest in bed Treatment interventions may include: None will be with pt at home to do her PROM into flexion in scapular plane as well as assisting as needed. Time Spent with Patient PT Evaluation (min): 25 min Total Treatment Time (min): 25 min Functional G-code Worksheet Basic Mobility Raw Score: 24 Basic Mobility Standardized Score: 61.14 CMS 0-100% Score: 0 % Basic Mobility [facility] Modifier: ERI Sena P.T. [facility], [facility], Second Floor [address] [place] [id number] Dept: [phone] H BREAKER MACHINE OPERATOR documented in this encounter Nursing Notes Arlene Todd R.N. - 06/19/2019 10:35 AM CST Patient discharged to home with self care. Transportation provided by patient's and all patient belongings sent with patient and family. Vital signs stable upon discharge. Dismissal summary reviewed with patient and discharge medications discussed. Hard copy of oxycodone prescription given to patient and all questions addressed at this time. Arlene Dela Cruz R.N. - 06/19/2019 10:20 AM CST Shift Goals: Ambulate as tolerated. Adequate pain control. Complete discharge education. Identify possible barriers to meeting goals/advancing plan of care: None evident at this time. End of Shift Summary: Patient able to ambulate around the unit with stand-by assistance and tolerated this well. Patient reported that pain is very manageable at this time. Polar ice machine utilized with adequate relief. Education provided on pain management and questions were addressed at this time. Discharge summary reviewed with patient and hard copy of oxycodone script sent with patient. Vital signs stable upon dismissal and all questions were addressed. Problem: PAIN - ADULT Goal: PT VERBALIZES/DEMONSTRATES ADEQUATE COMFORT LEVEL OR BASELINE Outcome: Adequate for Discharge Problem: KNOWLEDGE DEFICIT Goal: Patient/family/caregiver demonstrates understanding of disease process, treatment plan, medications, and discharge instructions Outcome: Adequate for Discharge Problem: INFECTION - ADULT Goal: Absence of infection during hospitalization Outcome: Adequate for Discharge Problem: SKIN/TISSUE INTEGRITY Goal: Skin/Tissue integrity maintained or improved Outcome: Adequate for Discharge Goal: Oral and Nasal mucous membranes remain intact Outcome: Adequate for Discharge Problem: SAFETY ADULT Goal: Maintain a safe environment Outcome: Adequate for Discharge Problem: DISCHARGE PLANNING Goal: Patient discharge needs identified Outcome: Adequate for Discharge Problem: SAFETY ADULT - RISK FOR FALL AND OR FALL INJURY Goal: Patient remains free from fall/fall injury Outcome: Adequate for Discharge Vinita Garland R.N. - 06/19/2019 9:58 AM CST Patient is discharging to home today. Outpatient Rx for rehab sent to [facility] Rehab clinic and appointment made and her PCP appointment made. Rx for pain meds given to her. Sling on. D/C instructions willbe at bedside with primary RN. Jose Finn R.N. - 06/19/2019 4:53 AM CST Problem: PAIN - ADULT Goal: PT VERBALIZES/DEMONSTRATES ADEQUATE COMFORT LEVEL OR BASELINE Outcome: Progressing Problem: KNOWLEDGE DEFICIT Goal: Patient/family/caregiver demonstrates understanding of disease process, treatment plan, medications, and discharge instructions Outcome: Progressing Problem: INFECTION - ADULT Goal: Absence of infection during hospitalization Outcome: Progressing Problem: SKIN/TISSUE INTEGRITY Goal: Skin/Tissue integrity maintained or improved Outcome: Progressing Goal: Oral and Nasal mucous membranes remain intact Outcome: Progressing Problem: SAFETY ADULT Goal: Maintain a safe environment Outcome: Progressing Problem: DISCHARGE PLANNING Goal: Patient discharge needs identified Outcome: Progressing Problem: SAFETY ADULT - RISK FOR FALL AND OR FALL INJURY Goal: Patient remains free from fall/fall injury Outcome: Progressing Shift Goals: Patient will have adequate pain control and keep right arm immobilized Identify possible barriers to meeting goals/advancing plan of care: None End of Shift Summary: Mrs. Harrell had very little pain throughout the night, and soreness was controlled with cold packs. She kept her right arm in sling as prescribed. Her vital signs remain stableon room air. She has not seen OT/PT yet, but is hoping to keep progressing well and go home soon. Jen Deng R.N. - 06/18/2019 2:20 PM CST Shift Goals: Problem: PAIN - ADULT Goal: PT VERBALIZES/DEMONSTRATES ADEQUATE COMFORT LEVEL OR BASELINE Outcome: Progressing Problem: INFECTION - ADULT Goal: Absence of infection during hospitalization Outcome: Progressing Problem: SKIN/TISSUE INTEGRITY Goal: Skin/Tissue integrity maintained or improved Outcome: Progressing Problem: SAFETY ADULT Goal: Maintain a safe environment Outcome: Progressing Problem: SAFETY ADULT - RISK FOR FALL AND OR FALL INJURY Goal: Patient remains free from fall/fall injury Outcome: Progressing Identify possible barriers to meeting goals/advancing plan of care: Recent surgery End of Shift Summary: Admitted to room 204 at approx. 1100 via cart. Patient is an assist of one with gaitbelt for transfers, uses call light appropriately and remained free from falls. Voiding w/o complication. Drinking water and chicken broth. Eating crackers and fries. States nausea felt after surgery has subsided. Rates pain 3/10 in R armpit that feels more like a pinch. Using Polar ice machineto R shoulder. O2 NC 2L titrated down to room air with O2 saturations maintaining in the 90's%. On continuous O2 monitoring. Numbness and tingling noted to patients R fingers. H BREAKER MACHINE OPERATOR Yahaira Beal R.N. - 06/18/2019 1:41 PM CST Scopolamine patch removed. H BREAKER MACHINE OPERATOR documented in this encounter OR Notes Op Note - Uriel Renner M.D. - 06/18/2019 8:35 AM CST FULL OP NOTE Procedure(s) (LRB): ARTHROPLASTY TOTAL REVERSE SHOULDER (Right) Surgeon(s) and Role: * Uriel Renner M.D. - Primary Freight Broker Agent: Candice Lynch APRN, C.N.P., D.N.P. Anesthesia Type General with pain block Pre-operative Diagnosis Pain Shoulder Right Post-operative Diagnosis Pain Shoulder Right Full Operative Note Details PROCEDURE(S) Right reverse total shoulder arthroplasty. SURGEON(S) Uriel Renner M.D. MUCK OPERATOR: Candice Lynch APRN, C.N.P., D.N.P. I requested Candice Lynch to assist with this reverse total shoulder arthroplasty. Assistance was medically necessary in order to safely perform the procedure without increased blood loss or morbidity. Assistance was provided through positioning, instrumentation, and retraction of incisions for better visualization of underlying structures and cauterization for hemostasis. Assistance was also provided through wound closure, instillation of anesthetic,application of sterile dressing, and safe transport from the operative suite. ANESTHESIA TYPE General anesthesia. PRE-OPERATIVE DIAGNOSIS Right shoulder rotator cuff arthropathy. POST-OPERATIVE DIAGNOSIS Right shoulder rotator cuff arthropathy. DESCRIPTION OF PROCEDURE The patient was brought to the patient brought the operating room, placed on the operating table in the supine position. General anesthesia was smoothly induced. She was then placed in the beach chair position, appropriately padded and secured. Right shoulder and arm were then prepped and draped in sterile fashion. Attention was brought to the anterior aspect of the shoulder. A longitudinal incision was then made overlying the deltopectoral interval. This was brought down through subcutaneous tissuedown to expose the deltopectoral interval. The deltoid and vein was then retracted laterally. Once that was completed, we then dissected down to the clavipectoral fascia. We then visualized the subscapularis. We then palpated, her tendon was absent as it had previously been tenotomized. We then markedout the subscapularis tendon, both medially and laterally, and cut through this. The supraspinatus appeared to be completely absent and fully retracted. Once the subscapularis was split the shoulder was then dislocated, rotated into position. The cutting guide was then placed over the humerus, pinned into place and the proximal humeral cut was then performed. Once that was completed the bony pieces were then removed. The glenoid retractor was then placed posteriorly as well as anteriorly. We then rem devonte the labral tissue from around the glenoid. Once that was completed, we then placed our guidepinfor the reamer. Once that was in position, we then reamed the glenoid and then placed our base platewith a central screw. We then placed the 4 surrounding peripheral screws and had good purchase on the bone. Once that was completed, our glenosphere 32 x 2 was then placed into position and pounded into place. Following this, the humerus was then rotated into position. We removed multiple anchors fromthe humerus itself when we cut off the humeral articular piece as well as trying to get into the canal. Once these anchors were then removed we then began reaming. We then reamed up to an 11. We then br oached up to an 11 similarly. We then calcar planed. We then trialed with our base plate with a 4 x 32 base plate and a 4 thickness poly. The shoulder was then reduced. We had excellent range of motionand excellent stability of the shoulder. All the trial components were then removed. The humeral component was then pounded into position, followed by placement of the base plate and poly. The shoulderwas then reduced. The shoulder was then copiously irrigated with antibiotic solution. The subscapularis was then repaired using #2 Ultrabraid in interrupted fashion, followed by copious irrigation of the subdeltoid region, followed by closure of this using 0-Vicryl in an interrupted running fashion. Co pious irrigation of the subcutaneous tissue, closed using 2-0 Vicryl. The skin was then closed usingZipLine device followed by an Aquacel AG dressing. Patient was then placed in supine position, extubated, and transferred to recovery in good condition. Needle and sponge counts correct. SPECIMENS None. ESTIMATED BLOOD LOSS 60 mL INDICATIONS: Heather is a 73-year-old woman, who had a significant massive rotator cuff tear, underwent repair of this at an outside institution and retore the rotator cuff. Subsequently, she was treated conservatively, but had persistent troubles with pain, weakness and significant atrophy of her rotator cuff. Despite conservative measures she made no significant improvement in her symptoms. We discussed risks, benefits, alternatives to reverse total shoulder arthroplasty with her. She understands these, desires to proceed with surgery. Specimens None Drains Estimated Blood Loss 60 mL Implants Implant Name Type Inv. Item Serial No. Chief Service Dispatcher Lot No. LRB No. Used Reunion RSA center screw 6.5mm Shoulder Implant Darvin [id number] Right 1 Reunion RSA concentric glensphere Shoulder Implant Darvin [id number] Right 1 reunion rsa 4.5mm /28mm Shoulder Implant Darvin Right 1 reunion rsa screw 4.5/24mm Shoulder Implant Darvin [id number] Right 1 Reunuion screw 4.5mm/16mm Shoulder Implant [place] [id number] Right 1 reunion screw 4.5mm/24mm Shoulder Implant [place] [id number] Right 1 humeral insert 32mm Shoulder Implant [place] Right 1 reUnion modular humeral stem Shoulder Implant [place] [id number] Right 1 reunuin rsa humeral cup 32mm/4mm Shoulder Implant [place] [id number] Right 1 Intra-op Medications Date/Time Order Dose Route Action Action by 06/18/2019 0819 ceFAZolin in dextrose (iso-osm) IVPB 2 g (ANCEF) 2 g intravenous Given Jaspal, J 06/18/2019 0830 tranexamic acid 1 g in NaCl 0.9% IVPB 1 g intravenous New Bag Truman Shay 06/18/2019 0940 tranexamic acid 1 g in NaCl 0.9% IVPB 1 g intravenous New Bag Truman Shay 06/18/2019 0836 bacitracin 300,000 Units in NaCl 0.9 % 3,060 mL irrigation 3,060 mL irrigation Given Mateo Renner M.D. H BREAKER MACHINE OPERATOR Brief Op Note - Uriel Renner M.D. - 06/18/2019 8:35 AM CST BRIEF OP NOTE Procedure(s) (LRB): ARTHROPLASTY TOTAL REVERSE SHOULDER (Right) Surgeon(s) and Role: * Uriel Renner M.D. - Primary Freight Broker Agent: Candice Lynch APRN, C.N.P., D.N.P. Anesthesia Type General with pain block Pre-operative Diagnosis Pain Shoulder Right Post-operative Diagnosis Pain Shoulder Right Brief Operative Note Details Specimens None Drains None Estimated Blood Loss 60 mL Implants Implant Name Type Inv. Item Serial No. Chief Service Dispatcher Lot No. LRB No. Used Reunion RSA center screw 6.5mm Shoulder Implant [place] [id number] Right 1 Reunion RSA concentric glensphere Shoulder Implant [place] [id number] Right 1 reunion rsa 4.5mm /28mm Shoulder Implant Darvin Right 1 reunion rsa screw 4.5/24mm Shoulder Implant [place] [id number] Right 1 Reunuion screw 4.5mm/16mm Shoulder Implant Darvin [id number] Right 1 reunion screw 4.5mm/24mm Shoulder Implant Darvin [id number] Right 1 humeral insert 32mm Shoulder Implant Darvin Right 1 reUnion modular humeral stem Shoulder Implant Darvin [id number] Right 1 reunuin rsa humeral cup 32mm/4mm Shoulder Implant Darvin [id number] Right 1 Uriel Renner M.D. H BREAKER MACHINE OPERATOR documented in this encounter Plan of Treatment Not on filedocumented as of this encounter Procedures Procedure Name Priority Date/Time Associated Comments Diagnosis GLUCOSE POCT, B Routine 06/19/2019 7:43 AM Result s for this BUNCH BREAKER MACHINE OPERATOR procedure are i n the results section. GLUCOSE POCT, B Routine 06/18/2019 10:17 Results for this PM BUNCH BREAKER MACHINE OPERATOR procedure are i n the results section. GLUCOSE POCT, B Routine 06/18/2019 4:58 PM Result s for this BUNCH BREAKER MACHINE OPERATOR procedure are i n the results section. GLUCOSE POCT, B Routine 06/18/2019 12:24 Results for this PM BUNCH BREAKER MACHINE OPERATOR procedure are i n the results section. GLUCOSE POCT, B Routine 06/18/2019 10:04 Results for this AM BUNCH BREAKER MACHINE OPERATOR procedure are i n the results section. ARTHROPLASTY TOTAL 06/18/2019 7:54 AM Pain Shoulder Ri ght REVERSE SHOULDER BUNCH BREAKER MACHINE OPERATOR Case Notes Dentures (_) Yes (X) No Hear ing aids (_) Yes (X) No Recent respiratory issues (_) Yes (X) NoGERD/Reflux/Ulcers (X) Yes (_) NoKidney Issues (_) Yes (X) NoBleeding tendencies (_) Yes (X) NoLiv er issues (_) Yes (X) NoSkin Alert Assessment: Complete this section only if the pat ient is greater than or equal to 18 y/o BMI <19 or >40: (_) Yes (_) NoDocumented ris k factors that indicate higher risk for pressure ulcer? (_) Yes (X) NoIs patient sam ir-bound or unable to reposition themselves? (_) Yes (X) NoDo you have impaired s ensation? (_) Yes (X) NoAnesthesia Risk Assessment:Do you use a CPAP or BiPAP mach ine? (_) Yes (X) No: patient instructed to bring day of surgery (_) YesHave you been told that it is difficult to place a breathing tube in your airway (intubate)? (_) Yes (X) No Comment: _Do you or a family member have a history of high fever after anesthesia (malignant hyperthermia)? (_) Yes (X) No. Comment: _Do you have any pe rsonal or family history of severe allergic or anaphylactic reactions to an esthetic agents? (_) Yes (X) No. Comment: _Do you have difficulties lying flat? (_) Yes (X) No. Comment: _Do you have any presybeterian or other objection to having a blood transfusion? (_) Yes (X) NoScheduling Follow-Up:Senior Software Qa Engineer reques jonathan: (X) N/A (_) Yes Comment: _Ortho Patients Only:[facility] sched uled: (_) N/A Date: _Are you currently using any equipment to amubulate? (X) No (_) Yes Do you need help obtaining equipment for post-op care? (X) No (_) Yes Post op care requires follow up with: (X)PT (_)OT (_)N/ADo you need assistance with setting up transitional care or home care following your surgery? (X) No (_) YesPre-op teaching reviewed with patient including instruction on:-Mu st shower the night before surgery and the morning of surgery to reduce the risk o f infection.-For procedures above the shoulders patient must wash their hair the nig ht before or the morning of surgery and then no styling products in the hair. -drive r required for same day surgery patients, patient should not be alone for 24 h ours after surgery and most patients are discharged 1-3 hours after surgery-If there are changes in health prior to surgery notify department performing surger y-where and how to check in on day of surgery-what to bring with on the day of the surgeryFasting guidelines:(X)Adults and children over 2 years old - Nothing to eat or drink after midnight the day before surgery with the exception that clear liq uids only are allowed until 4 hours before arrival time. At 4 hours before arri melany time nothing by mouthPatient and/or parent/guardian informed that failure to fol low the fasting guidelines may result in case cancellation.Planning for kenney rgery: -All surgery patients must have a pre-op physical within 30 days of s urgery , -Surgery brochure given or mailed to patient if they have not received on e already, reviewed surgical site infection teaching sheet, reviewed orthopedic p ain management letter for all orthopedic cases and offered patient guided image ry CD-Reviewed managing your pain insert and patient has a copy in writing(_)[facility]: [facility] (good for one year) and gave patient bairon robert and reviewed preop showering instructions (_)Pre op PT appt (ACL repairs only ) Post op appointments:1st po with surgeon or physician news production assistant: (_) made (_)TBD ( _)PO OT appt made (Hand surgery if requested) ECG STAT 06/18/2019 7:06 AM BUNCH BREAKER MACHINE OPERATOR Resul ts for this procedure are in the results section . HEMOGLOBIN, B STAT 06/18/2019 6:42 AM BUNCH BREAKER MACHINE OPERATOR Resu lts for this procedure are in the results section . documented in this encounter Results (ABNORMAL) Glucose, POCT (06/19/2019 7:43 AM BUNCH BREAKER MACHINE OPERATOR) P athologist Signature Glucose, POCT, 186 (H) 70 - 140 06/19/2019 CNFL B mg/dL 7:43 AM BUNCH BREAKER MACHINE OPERATOR Specimen Anatomical Collection Method Collection Time Receive d Time (Source) Location / / Volume Laterality Blood 06/19/2019 7:43 AM 9 8:03 BUNCH BREAKER MACHINE OPERATOR AM BUNCH BREAKER MACHINE OPERATOR Generic [facility] LAB POCT ORDERABLES-MANUAL Performing Organization Address City/[facility]/ZIP [facility] Phon e Number [address] [address] [facility] [place] [address] System in [place] [address] [address] (ABNORMAL) Glucose, POCT (06/18/2019 10:17 PM BUNCH BREAKER MACHINE OPERATOR) P athologist Signature Glucose, POCT, 243 (H) 70 - 140 06/18/2019 CNFL B mg/dL 10:17 PM BUNCH BREAKER MACHINE OPERATOR Specimen Anatomical Collection Method Collection Time Receive d Time (Source) Location / / Volume Laterality Blood 06/18/2019 10:17 06/18/2019 PM BUNCH BREAKER MACHINE OPERATOR 10:25 PM BUNCH BREAKER MACHINE OPERATOR Generic [facility] LAB POCT ORDERABLES-MANUAL Performing Organization Address City/[facility] Phon e Number [address] [address] [place] [address] System in [place] [address] [address] (ABNORMAL) Glucose, POCT (06/18/2019 4:58 PM BUNCH BREAKER MACHINE OPERATOR) P athologist Signature Glucose, POCT, 214 (H) 70 - 140 06/18/2019 CNFL B mg/dL 4:58 PM BUNCH BREAKER MACHINE OPERATOR Specimen Anatomical Collection Method Collection Time Receive d Time (Source) Location / / Volume Laterality Blood 06/18/2019 4:58 PM 9 5:10 BUNCH BREAKER MACHINE OPERATOR PM BUNCH BREAKER MACHINE OPERATOR Generic [facility] LAB POCT ORDERABLES-MANUAL Performing Organization Address City/State/ZIP Code Phon e Number [address] [address] [address] [address] System in [place] [address] [address] (ABNORMAL) Glucose, POCT (06/18/2019 12:24 PM BUNCH BREAKER MACHINE OPERATOR) P athologist Signature Glucose, POCT, 178 (H) 70 - 140 06/18/2019 CNFL B mg/dL 12:24 PM BUNCH BREAKER MACHINE OPERATOR Specimen Anatomical Collection Method Collection Time Receive d Time (Source) Location / / Volume Laterality Blood 06/18/2019 12:24 06/18/2019 PM BUNCH BREAKER MACHINE OPERATOR 12:33 PM BUNCH BREAKER MACHINE OPERATOR Generic [facility] POCT ORDERABLES-MANUAL Performing Organization Address City/State/ZIP Code Phon e Number [address] [address] [place] [address] System in [place] [address] [address] (ABNORMAL) Glucose, POCT (06/18/2019 10:04 AM BUNCH BREAKER MACHINE OPERATOR) P athologist Signature Glucose, POCT, 152 (H) 70 - 140 06/18/2019 CNFL B mg/dL 10:04 AM BUNCH BREAKER MACHINE OPERATOR Specimen Anatomical Collection Method Collection Time Receive d Time (Source) Location / / Volume Laterality Blood 06/18/2019 10:04 06/18/2019 AM BUNCH BREAKER MACHINE OPERATOR 10:19 AM BUNCH BREAKER MACHINE OPERATOR Generic [facility] POCT ORDERABLES-MANUAL Performing Organization Address City/State/ZIP Code Phon e Number [address] [address] [facility] [place] [address] System in [place] [address] [address] ECG 12 Lead (06/18/2019 7:06 AM BUNCH BREAKER MACHINE OPERATOR) P athologist Signature Ventricular Rate 65 BPM MUSE ECG/Min NE Interval 192 ms MUSE QRSD Interval 84 ms MUSE QT Interval 402 ms MUSE QTC Interval 418 ms MUSE P [place] -18 degrees MUSE R [place] -58 degrees MUSE T Wave [place] -3 degrees MUSE Specimen Anatomical Collection Method Collection Time Receive d Time (Source) Location / / Volume Laterality 06/18/2019 7:06 AM 9 7:18 BUNCH BREAKER MACHINE OPERATOR AM BUNCH BREAKER MACHINE OPERATOR Impressions MUSE - 06/18/2019 7:18 AM BUNCH BREAKER MACHINE OPERATOR Normal sinus rhythm Left anterior fascicular block Cannot rule out Anteroseptal infarct Slight ST elevation in Anteroseptal lead s No previous ECGs available Reviewed by AUBREY Frias Narrative This result has an attachment that is no t available. Procedure Note Jensen Girard M.D. - 06/18/2019Form atting of this note might be different from the original. IMPRESSION: Normal sinus rhythm Left anterior fascicular block Cannot rule out Anteroseptal infarct Slight ST elevation in Anteroseptal lead s No previous ECGs available Reviewed by AUBREY Frias Wilda Armendariz M.D. ECG ORDERABLES Performing Organization Address City/State/ZIP Code Phon e Number MUSE MUSE NA Hemoglobin (06/18/2019 6:42 AM BUNCH BREAKER MACHINE OPERATOR) P athologist Signature Hemoglobin 12.7 11.6 - 15.0 06/18/2019 CNFL g/dL 6:45 AM BUNCH BREAKER MACHINE OPERATOR Specimen Anatomical Collection Method Collection Time Receive d Time (Source) Location / / Volume Laterality Blood (Blood, 06/18/2019 6:42 AM 06/18/20 19 6:42 Venous) BUNCH BREAKER MACHINE OPERATOR AM BUNCH BREAKER MACHINE OPERATOR Wilda Armendariz M.D. LAB BLOOD ADD-ON Performing Organization Address City/State/ZIP Code Phon e Number [facility] [address] [place] [address] [place] [address] System [address] documented in this encounter Visit Diagnoses Diagnosis Pain Joint Pain Shoulder Right Pain Shoulder Right documented in this encounter Admitting Diagnoses Diagnosis Pain Shoulder Right Pain Joint documented in this encounter Administered Medications Inactive Administered Medications - up to 3 most recent administrations Medication Order MAR Action Action Date Dose Rate Site acetaminophen tablet 500 mg Given 06/19/2019 9:57 AM BUNCH BREAKER MACHINE OPERATOR 500 mg (TYLENOL) 500 mg, oral, Every 6 hours PRN, mild pain or score 1-3 of 10, Starting on Mon06/18/19 at 1129 bacitracin 300,000 Units in Given 06/18/2019 8:36 AM BUNCH BREAKER MACHINE OPERATOR 3,060 m L Right Shoulder NaCl 0.9 % 3,060 mL irrigation As needed, Starting on Mon06/18/19 at 0836, Intra-Op estradiol tablet 0.5 mg (ESTRACE) Given 06/19/2019 8:11 AM BUNCH BREAKER MACHINE OPERATOR 0.5 mg 0.5 mg, oral, Daily, First dose on Mon06/19/19 at 0900 insulin aspart U-100 Given 06/18/2019 5:02 PM BUNCH BREAKER MACHINE OPERATOR 2 Units Right Upper Arm injection 0-7 Units (Back ) (NovoLOG FlexPen) 0-7 Units, subcutaneous, 3 times daily, First dose on Mon06/18/19 at 1215, Insulin Scale: Mild Correction Scale, 180 - 219: 2 units, 220 - 259: 3 units, 260 - 299: 4 units, 300 - 339: 5 units, 340 - 379: 6 units, 380 - 399: 7 units, Greater than 399: Call service writing Insulin orders levothyroxine tablet 25 mcg (SYNTHROID, Given 06/19/2019 8:11 AM BUNCH BREAKER MACHINE OPERATOR 25 mcg LEVOTHROID) 25 mcg, oral, Daily, First dose on Mon06/19/19 at 0900 NaCl 0.9% infusion New Bag 06/18/2019 11:57 AM BUNCH BREAKER MACHINE OPERATOR 50 mL/hr 50 mL/hr 50 mL/hr, intravenous, Continuous, Starting on Mon06/18/19 at 1030, DC with good po ondansetron (PF) injection 4 mg (ZOFRAN) Given 06/18/2019 10:34 AM BUNCH BREAKER MACHINE OPERATOR 4 mg 4 mg, intravenous, Every 6 hours PRN, nausea, vomiting, Starting on Mon06/18/19 at 1024, For 48 hours, Reassess for nausea or vomiting after at least 10 minutes. If nausea or vomiting persists administer next ordered antiemetic medications (order for antiemetic medication administration ondansetron then droperidol then promethazine). oxyCODONE IR tablet 10 mg (ROXICODONE) 10 mg, oral, Every 4 hours PRN, severe p ain or score 7-10 of 10, Starting on Mon06/18/19 at 1129, Second line therapy. If patient is greater than 7 after 2 hours, call service for new order. oxyCODONE IR tablet 5 mg (ROXICODONE) 5 mg, oral, Every 4 hours PRN, moderate pain or score 4-6 of 10, Starting on Mon06/18/19 at 1129, Second line therapy rosuvastatin tablet 5 mg (CRESTOR) Given 06/18/2019 9:27 PM BUNCH BREAKER MACHINE OPERATOR 5 mg 5 mg, oral, Daily at bedtime, First dose on Mon06/18/19 at 2100 sennosides-docusate sodium 8.6-50 mg per Given 06/19/2019 8:12 A M BUNCH BREAKER MACHINE OPERATOR 1 tablet tablet 1 tablet (SENOKOT-S) 1 tablet, oral, 2 times daily, First dose on Mon06/18/19 at 2100, Do not give if patient has diarrhea. Given 06/18/2019 9:27 PM BUNCH BREAKER MACHINE OPERATOR 1 tablet traMADol tablet 100 mg (ULTRAM) 100 mg, oral, Every 6 hours PRN, moderat e pain or score 4-6 of 10, severe pain or score 7-10 of 10, Starting on Mon 9 at 1129, First line therapy or for pain greater than comfort goal (not to exceed 400 mg in 24 hours)., Drug Monitoring Program: Pharmacist to adjust medication dosing based on indication and drug clearance factors. traMADol tablet 50 mg (ULTRAM) 50 mg, oral, Every 6 hours PRN, mild pain or score 1-3 of 10, Starting on Mon06/18/19 at 1129, First line therapy, Prateek g Monitoring Program: Pharmacist to adjust medication dosing based on indication and drug clearan ce factors. documented in this encounter Active and Recently Administered Medications Times are shown in BUNCH BREAKER MACHINE OPERATOR. Scheduled Medication Order 06/17/2019 06/18/2019 06/19/2019 acetaminophen tablet 1,000 mg (TYLENOL) (COMPLETED) 0705 (Given - Provider: Bonny Glasgow RJudithN.) 1,000 mg, oral, Once, On Mon06/18/19 at 0645, For 1 dose, Pre-Op ceFAZolin in dextrose (iso-os) IVPB 2 g (ANCEF) (COMPLETED) 1313 (New Bag - Provider: Jen Bermudez RJudithN.)3705 (New Bag - Provider: Jose Clifford RTang) 2 g, intravenous, at 200 mL/hr, Administ er over 30 Minutes, Every 8 hours, First dose on Mon06/18/19 at 1400, For 2 doses, Start within 8 hours of last IV dose. premix bag, Drug Monitoring Program: Phar prakashist to adjust medication dosing based on indication and drug clearance factors., Indications: Prophylaxis, surgical ceFAZolin in dextrose (iso-osm) IVPB 2 g (ANCEF) (COMPLETED) 08 (Given - Provider: Nikolai Shay APRN, ROD PULLER) 2 g, intravenous, at 100 mL/hr, Administ er over 30 Minutes, Once, Mon06/18/19 at 0645, For 1 dose, Intra-Op, Preoperatively within 1 hour prior to surgical incision premix bag, Drug Monitoring Program: Pharmacist to adjust medication dosing b ased on indication and drug clearance factors., Indications: Prophylaxis, surgical estradiol tablet 0.5 mg (ESTRACE) 810 (Given - Provider: Arlene Todd R.N.) 0.5 mg, oral, Daily, First dose on Mon06/19/19 at 0900 insulin aspart U-100 injection 0-7 Units (NovoLOG FlexPen) 1228 (Not Given - Provider: Jen Bermudez R.N. - Reason: Order parameters not met - Comment: [phone] (Given - Provider: Jen Bermudez R.N.) 0850 (Not Given - Provider: Arlene Todd R.N. - Reason: Patient/family refused) 0-7 Units, subcutaneous, 3 times daily, First dose on Mon06/18/19 at 1215, Insulin Scale: Mild Correction Scale, 180 - 219: 2 units, 220 - 259: 3 units, 260 - 299: 4 units, 300 - 339: 5 units, 340 - 379 : 6 units, 380 - 399: 7 units, Greater t recinos 399: Call service writing Insulin orders levothyroxine tablet 25 mcg (SYNTHROID, LEVOTHROID) 810 (Given - Provider: Arlene Todd R.N.) 25 mcg, oral, Daily, First dose on Mon06/19/19 at 0900 metFORMIN XR 24 hr tablet 1,000 mg (GLUCOPHAGE-XR) 1,000 mg, oral, Daily with breakfast, Fi rst dose on Misty 06/20/19 at 0800, Swallow whole. Do NOT crush, chew, or split tablet. rosuvastatin tablet 5 mg (CRESTOR) 2126 (Given - Provider: Jose Clifford RTang) 5 mg, oral, Daily at bedtime, First dose on Mon06/18/19 at 2100 sennosides-docusate sodium 8.6-50 mg per tablet 1 tablet (SE NOKOT-S) 2126 (Given - Provider: Jose Clifford R.N.) 0812 (Given - Provider: Arlene Todd R.N.) 1 tablet, oral, 2 times daily, First dos e on Mon06/18/19 at 2100, Do not give if patient has diarrhea. tranexamic acid 1 g in NaCl 0.9% IVPB (COMPLETED) 0830 (New Bag - Provider: Nikolai Shay APRN, ROD PULLER) 1 g, intravenous, at 150 mL/hr, Administ er over 20 Minutes, Once, Mon06/18/19 at 0645, For 1 dose, Intra-Op, Administer in OR upon induction Mini-Bag Plus bag tranexamic acid 1 g in NaCl 0.9% IVPB (COMPLETED) 0940 (New Bag - Provider: Nikolai Shay APRN, ROD PULLER) 1 g, intravenous, at 150 mL/hr, Administ er over 20 Minutes, Once, Mon06/18/19 at 0645, For 1 dose, Intra-Op, Administer in OR just before dropping tourniquet Mini-Bag Plus bag Continuous Medication Order 06/17/2019 06/18/2019 06/19/2019 lactated ringers (CANCELED) 0737 (New Ba g - Provider: Nikolai Shay APRN, ROD PULLER)1004 (Anesthesia Volume Adjustment - Provider: Nikolai Shay APRN, KIRSTIN) 20 mL/hr, intravenous, at 20 mL/hr, Cont inuous, Starting Mon06/18/19 at 0645, Pre-Op NaCl 0.9% infusion 1157 (New Bag - Prov ider: Jen Bermudez R.N.)1531 (Stopped - Provider: Jen N Kubista, R.N.) 50 mL/hr, intravenous, Continuous, Start ing on Mon06/18/19 at 1030, DC with good po PRN Medication Order 06/17/2019 06/18/2019 06/19/2019 acetaminophen tablet 500 mg (TYLENOL) 0957 (Given - Provider: Arlene Todd RJudithNJudith) 500 mg, oral, Every 6 hours PRN, mild pa in or score 1-3 of 10, Starting on Mon06/18/19 at 1129 bacitracin 300,000 Units in NaCl 0.9 % 3,060 mL irrigation ( CANCELED) 0836 (Given - Provider: Uriel Renner M.D.) As needed, Starting on Mon06/18/19 at 0836, Intra-Op bisacodyl suppository 10 mg (DULCOLAX) 10 mg, rectal, Daily PRN, constipation, Starting Mon06/18/19 at 1129, Ordered sequence of administration: polyethylene glycol, then bisacodyl until BM achieved. dexamethasone injection 4 mg (DECADRON) 4 mg, intravenous, Once as needed, nause a, vomiting, Starting Mon06/18/19 at 1129, For 1 dose, Give only if NOT given during the pre or intraoperative period. If ondansetron ordered, give dexamethasone with first dose of ondansetron. droperidol injection 0.625 mg (INAPSINE) 0.625 mg, intravenous, Every 6 hours PRN , nausea, vomiting, Starting Mon06/18/19 at 1129, For 48 hours, Total of 3 doses in 24 hour period. RASS must be -2 or higher to administer. Reassess for nausea o r vomiting after at least 10 minutes. If nausea or vomiting persists administer next ordered antiemetic medications (order for antiemetic medication administration ondansetron then droperidol then promethazine). fentaNYL injection 25 mcg (SUBLIMAZE) (CANCELED) 1046 (Given - Provider: Yahaira Beal RJudithNJudith) 25 mcg, intravenous, Every 2 min PRN, Fo r pain 4 or greater (maximum 100 mcg). If max dose of Fentanyl is reached and if pain is greater than 4, discontinue Fentanyl: give Hydromorphone, Starting on Mon06/18/19 at 1003, PACU (only) HYDROmorphone injection 0.5 mg (DILAUDID) 0.5 mg, intravenous, Every 2 hour PRN, s evere pain or score 7-10 of 10, Starting Mon06/18/19 at 1129, For 2 doses, May administer if pain is greater than 7 after scheduled and PRN regimen exhausted. If pain remains greater than 7, notify primary service. naloxone injection 0.2 mg (NARCAN) 0.2 mg, intravenous, As needed, respirat ory depression, Starting Mon06/18/19 at 1129, For respiratory rate less than 8 breaths per minute or RASS score of -3, - 4, -5. Apply oxygen to keep oxygen saturations greater than 90% and notify service. ondansetron (PF) injection 4 mg (ZOFRAN) 1034 (Given - Provider: Yahaira Beal R.N.) 4 mg, intravenous, Every 6 hours PRN, na usea, vomiting, Starting on Mon06/18/19 at 1024, For 48 hours, Reassess for nausea or vomiting after at least 10 minutes. If nausea or vomiting persists administe r next ordered antiemetic medications (o rder for antiemetic medication administration ondansetron then droperidol then promethazine). oxyCODONE IR tablet 10 mg (ROXICODONE)(Linked Group 1) 10 mg, oral, Every 4 hours PRN, severe p ain or score 7-10 of 10, Starting on Mon06/18/19 at 1129, Second line therapy. If patient is greater than 7 after 2 hours, call service for new order. oxyCODONE IR tablet 5 mg (ROXICODONE)(Linked Group 1) 5 mg, oral, Every 4 hours PRN, moderate pain or score 4-6 of 10, Starting on Mon06/18/19 at 1129, Second line therapy promethazine injection 6.25 mg (PHENERGAN) 6.25 mg, intravenous, Every 6 hours PRN, nausea, vomiting, Starting Mon06/18/19 at 1129, For 48 hours, RASS must be -2 or higher to administer. Reassess for nausea/vomiting after at least 10 minutes. If nausea or vomiting persists administer next ordered antiemetic medications (order for antiemetic medication administration ondansetron then droperidol then promethazine). sodium chloride 0.9 % injection 3 mL 3 mL, intravenous, As needed, line care, Starting Mon06/18/19 at 0633, Prior to and following infusion and between multiple consecutive infusions: sodium chloride 0.9 % injection traMADol tablet 100 mg (ULTRAM)(Linked Group 2) 100 mg, oral, Every 6 hours PRN, moderat e pain or score 4-6 of 10, severe pain or score 7-10 of 10, Starting on Mon06/18/19 at 1129, First line therapy or for pain greater than comfort goal (not to exce ed 400 mg in 24 hours)., Drug Monitoring Program: Pharmacist to adjust medication dosing based on indication and drug clearance factors. traMADol tablet 50 mg (ULTRAM)(Linked Group 2) 50 mg, oral, Every 6 hours PRN, mild charbel n or score 1-3 of 10, Starting on Mon06/18/19 at 1129, First line therapy, Drug Monitoring Program: Pharmacist to adjust medication dosing based on indication and drug clearance factors. Linked Groups Order Group 1: oxyCODONE IR tablet 5 mg (ROXICODONE)Jump to med 5 mg, oral, Every 4 hours PRN, moderate pain or score 4-6 of 10, Starting on Mon06/18/19 at 1129
Second line therapy
Or oxyCODONE IR tablet 10 mg (ROXICODONE)Jump to med 10 mg, oral, Every 4 hours PRN, severe p ain or score 7-10 of 10, Starting on Mon06/18/19 at 1129
Second line therapy. If patient is greater than 7 after 2 hours, call service for new order.
Group 2: traMADol tablet 50 mg (ULTRAM)Jump to med 50 mg, oral, Every 6 hours PRN, mild charbel n or score 1-3 of 10, Starting on Mon06/18/19 at 1129
First line therapy
Drug Monitoring Program: Pharmacist to adjust medication dosing based on indication and drug clearance factors. Or traMADol tablet 100 mg (ULTRAM)Jump to med 100 mg, oral, Every 6 hours PRN, moderat e pain or score 4-6 of 10, severe pain or score 7-10 of 10, Starting on Mon06/18/19 at 1129
First line therapy or for pain greater than comfort goal (not to exceed 400 mg in 24 hours).
Drug Monitoring Program: Pharmacist to adjust medication dosing based on indication and drug clearance factors. documented in this encounter
--- OUTSIDE RECORDS SUMMARY | 2022-05-10 09:50 | XMS_ITS | Encounter Summary ---
:1945 Author Organization [facility] Address [address] [place] [id number] Care Team Providers Name Role Phone Unavailable Primary Care Provider Unavailable Encounter Details Date Type Department Care Team Description 04/09/2019 Clinical Communication Department of General Ro Miller, Surgery in [address] [id number] Social History Tobacco Use Types Packs/Day Years Used Date Smoking Tobacco: Former Smokeless Tobacco: Never Alcohol Use Standard Drinks/Week Comments Not Currently 0 (1 standard drink = 0.6 oz [...] or relatives? How often do you attend yazdanism or Not asked hoahaoism services? Do you belong to any clubs or Yes 04/11/2019 organizations such as yazdanism groups, unions, fraternal or athletic groups, or [...] this encounter Miscellaneous Notes Telephone Encounter - Fauzia Miller R.N. - 04/09/2019 9:42 AM CDT Patient is currently scheduled for shoulder surgery with Dr. Renner next April 19 in [place]. She states when she originally talked to him, she was having significant shoulder pain. Now, she reports her shoulder feels great, she has great range of motion, and is not sure she wants to proceed. She would like an appointment to discuss the surgery, again, before deciding whether to cancel or proceed. Discussed with Byron in ortho. Okay to schedule on , 04/11, with Dr. Renner to discuss. Patient understands this appointment will be in [place] and is okay coming here to discuss. Appointment scheduled for 1:45 pm on 04/11 and patient is aware where to check in. She had no other questions at this time and is appreciative of the appointment. documented in this encounter Plan of Treatment Not on filedocumented as of this encounter Visit Diagnoses Not on filedocumented in this encounter
--- OUTSIDE RECORDS SUMMARY | 2022-05-10 09:50 | XMS_ITS | Encounter Summary ---
:1945 Author Organization [facility] Address [address] [place] [address] Care Team Providers Name Role Phone Unavailable Primary Care Provider Unavailable Encounter Details Date Type Department Care Team Description 06/18/2019 Anesthesia Event [facility] Nikolai Shay APRN, VICE PRESIDENT OF HUMAN RESOURCES [address] [place] [address] [place] [address] Wilda Armendariz M.D. [address] [place] [address] [place] [address] Anesthesia Record Procedure Summary Procedure Name Responsible Anesthesia Start Anesthesia Stop Anesthesiologist Time Time ARTHROPLASTY TOTAL Nikolai Shay APRN, 06/18/19 0754 12/30 1005 REVERSE SHOULDER VICE PRESIDENT OF HUMAN RESOURCES (Right: Shoulder) Events Date Time Event Comment 06/18/2019 0737 An Start Data 0743 Block Start Documented by nu rsing staff 0748 Block End Documented by nu rsing staff 0750 an stop data 0754 In Room 0754 An Start Machine/Equipmen t Checked Infection Precautions Foll owed Procedure/Site Verified NPO Sta tus Verified Supine Standard ASA Mon itors Applied 0759 An Induction 0804 An Intubation 0815 Turnover to Proceduralist 0835 Proc Start 0942 Proc Fin 0955 Turnover to ANE Staff 0955 Airway Removal Criteria Met 0955 Extubation/Airway Removed 0958 Out of Room 1003 an stop data 1005 An End I completed my h andoff to the receiving staff during [facility] 1. Identified the patient 2. Ident ified the responsible provider 3. Revi ewed the pertinent medical history 4. Discussed the surgical course 5. Review ed intra-op anesthesia management and i ssues during anesthesia 6. Set expectati ons for post-procedure period 7. Allowe d opportunity for questions and ac knowledgement of understanding. Name Total midazolam 1 mg/mL injection 2 mg propofol 10 mg/mL 150 mg succinylcholine 20 mg/mL injection 100 mg ondansetron 4 mg/2 mL injection 4 mg ceFAZolin in dextrose (iso-osm) IVPB 2 g (ANCEF) 2 g dexamethasone 4 mg/mL injection 8 mg bupivacaine PF 0.5% injection 4 mL liposomal bupivacaine PF 1.3% injection 10 mL tranexamic acid 1 g in NaCl 0.9% IVPB 1 g tranexamic acid 1 g in NaCl 0.9% IVPB 1 g scopolamine 1.5mg (1 mg/72) hr patch 1 patch phenylephrine 100 mcg/mL injection 100 mcg lactated ringers 900 mL Agents No agents on file. Blood No blood administrations on file. Lines, Drains, and Airways Type Details Placement Removal Peripheral IV Placement Date: 06/18/19; 06/18/19 0738 by 06/19 0845 by Placement Time: 0738; Bonny Glasgow Garner, Leanne R, Catheter Size: 22 G; R.N. R.N. Orientation: Left; Location: Hand; Site Prep: Chlorhexidine (Preferred); Technique: Anatomical landmarks; Inserted by: Maddi Glasgow RN; Insertion Attempts: 1; Removal Date: 06/19/19; Removal Time: 0845; Removal Reason: Patient discharged ETT Placement Date: 06/18/19; 06/18/19 08 by 06/18 0955 by Placement Time: 0804 Nikolai Shay Cochran e, Joshua A, (created via procedure POISON INFORMATION SPECIALIST, VICE PRESIDENT OF HUMAN RESOURCES POISON INFORMATION SPECIALIST, CRN A documentation); Mask Ventilation: Easy mask; Type: Standard ETT; Single Lumen Tube Size: 7 mm; Cuffed: Yes; Location: Oral; Removal Date: 06/18/19; Removal Time: 0955 (RETIRED) Incision 06/18/19; 0844; Shoulder; 06/18/19 0844 by [id number] by Right; Zip closure; Evette Padilla, [facility]Back[facility]oun 05/04/21 (Removed by Afsaneh Lott background completion Automated Batch Job utility); 8045 (Removed by background completion utility) documented in this encounter Social History Tobacco Use Types Packs/Day Years [...] do you attend spiritism or Not asked restorationist services? Do you belong to any clubs [...] on file documented as of this encounter OR Notes Anesthesia Postprocedure Evaluation - Nikolai Shay APRN, CRNA - 06/18/2019 12:42 PM CST Patient: Heather Harrell Procedure Summary Date: 06/18/19 Room / Location: [facility] - [place] Anesthesia Start: 0754 Anesthesia Stop: 100 Procedure: ARTHROPLASTY TOTAL REVERSE SHOULDER (Right Shoulder) Diagnosis: Pain Shoulder Right (Pain Shoulder Right [M25.511]) Surgeon: Uriel Renner M.D. Responsible Provider: Nikolai Shay APRN, CRNA Anesthesia Type: general with pain block ASA Status: 2 Anesthesia Type: general with pain block Last vitals Vitals Value Taken Time BP 152/70 06/18/2019 11:05 AM Temp 36.2 ??C 06/18/2019 10:50 AM Pulse 60 06/18/2019 11:10 AM Resp 11 06/18/2019 11:10 AM SpO2 98 % 06/18/2019 11:10 AM Vitals shown include unvalidated device data. Please reference Vitals flowsheet for most recent vital signs. Anesthesia Post Evaluation Patient Disposition: general care unit Cardiovascular status: hemodynamics (HR & BP) acceptable Respiratory status: patent airway with spontaneous effort Temperature: normothermic Oxygen requirements: room air Level of consciousness: awake Pain score: pain adequately controlled and/or at baseline Post Op nausea/vomiting: none Hydration status: euvolemic ACT REPRESENTATIVE Anesthesia Procedure Notes - Nikolai Shay APRN, CRNA - 06/18/2019 8:24 AM CSTAssociated Order(s): Airway Airway Date/Time: 06/18/2019 8:04 AM Performed by: Nikolai Shay APRN, CRNA Authorized by: Nikolai Shay APRN, CRNA Patient location during procedure: OR / Procedure Area PROCEDURE DETAILS: Mask difficulty assessment: easy mask Final airway type: video laryngoscope Laryngeal Manipulation: no Final best view of glottic structures - Cormack/Lehane Score: grade 1 ETT location: oral VL device: glide scope [place] scope blade size: 3 Adult tube size: 7 Adult ETT distance at teeth/gum: 22 Oral tube type: standard ETT Cuffed: yes Airway confirmation: bilateral breath sounds, positive ETCO2 and bilateral chest rise Other previous techniques attempted: none PRE PROCEDURE DETAILS: Pre evaluation for airway management: procedure Urgency: elective Preoxygenation: bag valve mask SEDATION / ANESTHESIA Anesthesia method: anesthesia POST PROCEDURE DETAILS: Procedure outcome: successful Airway event: no complications ACT REPRESENTATIVE Anesthesia Procedure Notes - Nikolai Shay APRN, CRNA - 06/18/2019 8:24 AM CSTAssociated Order(s): Regional Block Regional Block Date/Time: 06/18/2019 7:45 AM Performed by: Nikolai Shay APRN, CRNA Authorized by: Nikolai Shay APRN, CRNA Location: Pre Op / PACU PROCEDURE DETAILS: Block type: post-op pain block Block type comment: Post-Op pain block at request of surgeon Upper extremity: interscalene Positioning: lateral (left) Laterality: right Block technique: ultrasound guided and nerve stimulator Ultrasound image: image acquired and saved Interscalene blockade were identified. Local anesthetic was injected under direct visualization and good circumferential spread was observed. No pain on injection or needle advancement. No complications noted patient tolerated procedure well. Minimum stimulating threshold (mA): 0.4 Injection technique: single injection Needle type: echogenic Gauge: 20G Length: 10 Test dose: no test dose given Incremental injection of local anesthetic with aspiration every:5cc Pain with needle advancement or injection of local anesthetic: no UNIVERSAL PROTOCOL All relevant documentation and testing were reviewed and available. All required blood products, implants, devices and or special equipment were made available as applicable. Pre-procedure verificationwas conducted and the correct site was marked if required. A fire risk assessment was done as applicable. The procedural time-out was conducted prior to performing the procedure and confirmed in a procedural pause. PRE-PROCEDURE DETAILS: Appropriate hand hygiene, gown, cap, mask, protective eyewear, sterile gloves, skin preparation, sterile drape, and strict aseptic technique were utilized as applicable for the procedure.: yes Skin prep: chlorhexidine SEDATION / ANESTHESIA Anesthesia method: local infiltration Local infiltrate type: bupivacaine POST-PROCEDURE DETAILS: Procedure completed successfully: successful procedure Other complications: none ACT REPRESENTATIVE Anesthesia Preprocedure Evaluation - Nikolai Shay APRN, CRNA - 06/18/2019 7:34 AM CST Preprocedure Anesthesia & H&P Assessment Procedure Summary Date/Time: 06/18/19 0800 Procedure: ARTHROPLASTY TOTAL REVERSE SHOULDER (Right Shoulder) Diagnosis: Pain Shoulder Right [M25.511] Pre-op diagnosis: Pain Shoulder Right [M25.511] Location: [address] / [facility] - [place] Surgeon: Uriel Renner M.D. Pertinent components of the patient's history including current problem list, medical history, surgical history, family history, social history, medications and allergies were reviewed. Present illnessand pre-op diagnosis were confirmed. The planned surgery / procedure was verified with the patient /legal guardian. The patient's general health condition remains unchanged PROBLEM LIST Relevant Problems ENDO (+) Diabetes Mellitus Type 2 Without Complication (HCC) (+) Hypothyroidism GENETICS (+) Diabetes Mellitus Type 2 Without Complication (HCC) (+) Hyperlipidemia Other (+) Primary Osteoarthritis Shoulder Right Hx PONV Hx atypical chest pain-w/u -[place]-negative stress echo-EF 70%, no RWMA noted OBJECTIVE PHYSICAL EXAMINATION Airway (HEENT) Mallampati: II TM Distance: >3 FB Neck ROM: Full Mouth Opening: >3 cm Upper Lip Bite Test Class: I Cardiovascular Rhythm: Regular Rate: Normal Cardiovascular Assessment: cardiovascular normal Functional Capacity: >4 METS Pulmonary Pulmonary Assessment: Clear General / Constitutional Constitutional Assessment: Normal General State of Health:: healthy appearing and calm Neurological Normal Dental Normal Abdomen Normal Musculoskeletal Normal Skin Normal ASSESSMENT / PLAN ANESTHESIA PLAN ASA: 2 Anesthesia Plan: general with pain block Patient seen and allergies reviewed, anesthesia plan and risks discussed directly with patient /legal guardian or through an foreign language interpreter.. Risks/Benefits/Alternatives of Blood transfusion discussed with patient / legal guardian, including an opportunity to ask questions and/or decline some or all transfusion therapies. The patient / legalguardian consented to the use of all blood products, as deemed medically necessary Approval to Proceed: approved for anesthesia ACT REPRESENTATIVE documented in this encounter Plan of Treatment Not on filedocumented as of this encounter Procedures Procedure Name Priority Date/Time Associated Comments Diagnosis LDA ANE ENDOTRACHEAL Routine 06/18/2019 8:24 AM R esults for this AIRWAY CONTACT REPRESENTATIVE procedure are i n the results section. MC ANE NERVE BLOCK Routine 06/18/2019 8:24 AM Res ults for this WITH ULTRASOUND CONTACT REPRESENTATIVE procedure ar e in the results section. AK US GUIDE PLC NDL Routine 06/18/2019 8:24 AM Re sults for this CONTACT REPRESENTATIVE procedure are i n the results section. AK INJ ANES BRACHIAL Routine 06/18/2019 8:24 AM R esults for this PLEX CONTACT REPRESENTATIVE procedure are i n the results section. documented in this encounter Results LDA ANE ENDOTRACHEAL AIRWAY (06/18/2019 8:24 AM CONTACT REPRESENTATIVE) Narrative Nikolai Shay APRN, CRNA - 019 8:24 AM CONTACT REPRESENTATIVE Nikolai Shay APRN, CRNA ? 06/18/2019 ??8:25 AM Airway Date/Time: 06/18/2019 8:04 AM Performed by: Nikolai Shay APRN, CRNA Authorized by: Nikolai Shay APRN, CRNA Patient location during procedure: OR / Procedure Area PROCEDURE DETAILS: Mask difficulty assessment: easy mask Final airway type: video laryngoscope Laryngeal Manipulation: no ?? Final best view of glottic structures - Cormack/Lehane Score: grade 1 ETT location: oral VL device: glide scope [place] scope blade size: 3 Adult tube size: 7 Adult ETT distance at teeth/gum: 22 Oral tube type: standard ETT Cuffed: yes Airway confirmation: bilateral breath so unds, positive ETCO2 and bilateral chest rise Other previous techniques attempted: non e PRE PROCEDURE DETAILS: Pre evaluation for airway management: pr ocedure Urgency: elective Preoxygenation: bag valve mask SEDATION / ANESTHESIA Anesthesia method: anesthesia POST PROCEDURE DETAILS: ? Procedure outcome: successful ?? Airway event: no complications Nikolai Shay APRN, CRNA ANESTHESIA ORDERABLES AK INJ ANES BRACHIAL PLEX, AK US GUIDE PLC NDL, MC ANE NERVE BLOCK WITH ULTRASOUND (06/18/2019 8:24 AM CONTACT REPRESENTATIVE) Narrative Nikolai Shay APRN, CRNA - 019 8:24 AM CONTACT REPRESENTATIVE Nikolai Shay APRN, CRNA ? 06/18/2019 ??8:25 AM Regional Block Date/Time: 06/18/2019 7:45 AM Performed by: Nikolai Shay APRN, CRNA Authorized by: Nikolai Shay APRN, CRNA Location: Pre Op / PACU PROCEDURE DETAILS: Block type: post-op pain block ?? Block type comment: Post-Op pain block a t request of surgeon Upper extremity: interscalene Positioning: lateral (left) ?? Laterality: right Block technique: ultrasound guided and n erve stimulator ?? Ultrasound image: image acquired and tito ed Interscalene blockade were identified. L ocal anesthetic was injected under direct visualization and good circumfere ntial spread was observed. No pain on injection or needle advancement. No c omplications noted patient tolerated procedure well. Minimum stimulating threshold (mA): 0.4 Injection technique: single injection Needle type: echogenic Gauge: 20G Length: 10 Test dose: no test dose given ?? Incremental injection of local anestheti c with aspiration every:5cc Pain with needle advancement or injectio n of local anesthetic: no ?? UNIVERSAL PROTOCOL All relevant documentation and testing w ere reviewed and available. All required blood products, implants, devic es and or special equipment were made available as applicable. Pre-proced ure verification was conducted and the correct site was marked if required. A fire risk assessment was done as applicable. The procedural time-out w as conducted prior to performing the procedure and confirmed in a procedu ral pause. PRE-PROCEDURE DETAILS: ?? Appropriate hand hygiene, gown, cap, mas k, protective eyewear, sterile gloves, skin preparation, sterile drape, and strict aseptic technique were utilized as applicable for the procedure .: yes ?? Skin prep: chlorhexidine SEDATION / ANESTHESIA Anesthesia method: local infiltration Local infiltrate type: bupivacaine POST-PROCEDURE DETAILS: Procedure completed successfully: succes sful procedure Other complications: none Nikolai Shay POISON INFORMATION SPECIALIST, VICE PRESIDENT OF HUMAN RESOURCES PROCEDURE/MINOR SURGICAL ORDERABLES documented in this encounter Visit Diagnoses Not on filedocumented in this encounter Administered Medications Inactive Administered Medications - up to 3 most recent administrations Medication Order MAR Action Action Date Dose Rate Site bupivacaine liposome (PF) 266 mg/20 Given 06/18/2019 7:46 AM CONTACT REPRESENTATIVE 10 mL mL (13.3 mg/mL) injection (EXPAREL) As needed, Starting on Mon06/18/19 at 0746, Anesthesia Intra-op bupivacaine PF 0.5 % (5 mg/mL) injection Given 06/18/2019 7:45 A M CONTACT REPRESENTATIVE 4 mL (MARCAINE) As needed, Starting on Mon06/18/19 at 0745, Anesthesia Intra-op ceFAZolin in dextrose (iso-osm) IVPB 2 g (ANCEF) Given 06/18/2019 8:19 AM CONTACT REPRESENTATIVE 2 g 2 g, intravenous, at 100 mL/hr, Administer over 30 Minutes, Once, On Mon06/18/19 at 0645, For 1 dose, Intra-Op, Preoperatively within 1 hour prior to surgical incision premix bag, Drug Monitoring Program: Pharmacist to adjust medication dosing based on indication and drug clearance factors., Indications: Prophylaxis, surgical dexamethasone injection (DECADRON) Given 06/18/2019 8:21 AM CONTACT REPRESENTATIVE 8 mg As needed, Starting on Mon06/18/19 at 0821, Anesthesia Intra-op lactated ringers New Bag 06/18/2019 7:37 AM CONTACT REPRESENTATIVE 20 mL/hr, intravenous, Continuous, Starting on Mon06/18/19 at 0645, Pre-Op midazolam (PF) injection (VERSED) Given 06/18/2019 7:37 AM CONTACT REPRESENTATIVE 2 mg intravenous, As needed, Starting on Mon06/18/19 at 0737, Anesthesia Intra-op ondansetron (PF) injection (ZOFRAN) Given 06/18/2019 8:21 AM CONTACT REPRESENTATIVE 4 mg intravenous, As needed, Starting on Mon06/18/19 at 0821, Anesthesia Intra-op phenylephrine injection Given 06/18/2019 9:06 AM CONTACT REPRESENTATIVE 100 mcg As needed, Starting on Mon06/18/19 at 0906, Anesthesia Intra-op propofol injection (DIPRIVAN) Given 06/18/2019 7:59 AM CONTACT REPRESENTATIVE 150 mg intravenous, As needed, Starting on Mon06/18/19 at 0759, Anesthesia Intra-op scopolamine base 1 mg over 3 days (TRANSDERM Given 12/2018 7:37 AM CONTACT REPRESENTATIVE 1 patch SCOP) transdermal, Administer over 72 Hours, As needed, Starting on Mon06/18/19 at 0737, Anesthesia Intra-op succinylcholine (PF) injection (ANECTINE ) Given 06/18/2019 8:01 AM CONTACT REPRESENTATIVE 100 mg intravenous, As needed, Starting on Mon06/18/19 at 0801, Anesthesia Intra-op tranexamic acid 1 g in NaCl 0.9% IVPB New Bag 06/18/2019 8:30 AM CONTACT REPRESENTATIVE 1 g 1 g, intravenous, at 150 mL/hr, Administer over 20 Minutes, Once, On Mon06/18/19 at 0645, For 1 dose, Intra-Op, Administer in OR upon induction Mini-Bag Plus bag tranexamic acid 1 g in NaCl 0.9% IVPB New Bag 06/18/2019 9:40 AM CONTACT REPRESENTATIVE 1 g 1 g, intravenous, at 150 mL/hr, Administer over 20 Minutes, Once, On Mon06/18/19 at 0645, For 1 dose, Intra-Op, Administer in OR just before dropping tourniquet Mini-Bag Plus bag documented in this encounter
--- OUTSIDE RECORDS SUMMARY | 2022-05-10 09:50 | XMS_ITS | Encounter Summary ---
:1945 Author Organization [facility] Address [address] [place] [address] Care Team Providers Name Role Phone Unavailable Primary Care Provider Unavailable Reason for Visit Reason Comments Injury Encounter Details Date Type Department Care Team Description 04/11/2019 Office Visit Department of Uriel Renner, Rotator Cuff Disorder Orthopedic Surgery in M.D. Right (Primary Dx) [address] [phone] Social History Tobacco Use Types Packs/Day Years [...] or relatives? How often do you attend jain or Not asked sikh services? Do you belong to any clubs or Yes 04/11/2019 organizations such as jain groups, unions, fraternal or athletic groups, or [...] encounter Consult Notes Uriel Renner M.D. - 04/11/2019 1:45 PM CDT HISTORY OF PRESENT ILLNESS Heather is a 73-year-old woman who is here in regard to her shoulder. She sustained an injury to her right shoulder and underwent a rotator cuff repair at an outside institution. Subsequently she had re-injury to the shoulder and problems with persistent pain. An MRI obtained demonstrated repairing of her rotator cuff that was quite severe and substantial. We have made plans to proceed with a reverse total shoulder arthroplasty and at this point in time she says that her pain has improved and she does feel some continued weakness in her shoulder, but overall things are better from a functional standpoint and she wants to complete this surgery at this point. DIAGNOSTICS Radiographs, an MRI is again reviewed which demonstrates a large complete tear of the supraspinatus tendon where her previous repair had been. ASSESSMENT / PLAN #1 Heather is a 73-year-old woman dealing with an irreparable rotator cuff tear I discussed the treatment options. At this point, we will put off the conversion to reverse total shoulder arthroplasty. She understands that this could be an option later in the future for her. The patient's visit today was 16 minutes long, with 12 minutes of it counseling regarding treatment for her right shoulder massive rotator cuff tear. documented in this encounter Plan of Treatment Not on filedocumented as of this encounter Visit Diagnoses Diagnosis Rotator Cuff Disorder Right - Primary documented in this encounter
--- OUTSIDE RECORDS SUMMARY | 2022-05-10 09:50 | XMS_ITS | Encounter Summary ---
:1945 Author Organization [facility] Address [address] [place] [address] Care Team Providers Name Role Phone Unavailable Primary Care Provider Unavailable Encounter Details Date Type Department Care Team Description 04/05/2019 Hospital Encounter Department of Uriel Renner Pain Shoulder Right Laboratory Medicine Tian Cook in [place] [phone] [facility] [phone] [place], [place] (Work) [phone] Social History Tobacco Use [...] do you attend yazdanism or Not asked gnosticism services? Do you belong to any clubs [...] Sig Dispensed Refills Start Date End Date aspirin 81 mg chewable Chew 81 mg daily. 0 2011 tablet acetaminophen (TYLENOL) 325 Take 325-650 mg by 0 04/21/2017 04/12/2019 mg tablet mouth every 6 (six) hours as needed for pain. aspirin 81 mg chewable Chew 81 mg daily. 0 201704/12/2019 tablet aspirin-calcium carbonate Take 81 mg by 0 012 02/02/2021 81 mg-300 mg calcium(777 mouth daily. mg) tablet cholecalciferol (VITAMIN Take 2,000 Units 0 04/12/2019 D3) 2,000 Unit tablet by mouth daily. clindamycin (CLEOCIN) 150 Take 300 mg by 0 201704/12/2019 mg capsule mouth as directed. estradiol (ESTRACE) 0.5 mg Take 1 tablet by 2 01/201904/12/2019 tablet mouth daily. gabapentin (NEURONTIN) 100 Take 100 mg by 0 11/0604/12/2019 mg capsule mouth 3 (three) times a day. levothyroxine (SYNTHROID, Take 1 tablet by 3 02/1104/12/2019 LEVOTHROID) 25 mcg tablet mouth daily. meloxicam (MOBIC) 15 mg Take 15 mg by 6 9 04/12/2019 tablet mouth daily. metFORMIN (GLUCOPHAGE) 500 Take 500 mg by 0 06/12/2019 mg tablet mouth daily. omega-3 fatty acids-fish Take 500 mg by 0 04/12/2019 oil 300-1,000 mg capsule mouth daily. red yeast rice 600 mg Take 600 mg by 0 04/12/2019 tablet mouth daily. documented as of this encounter Plan of Treatment Not on filedocumented as of this encounter Procedures Procedure Name Priority Date/Time Associated Diagnosis Comme nts TESTING LOCATION Routine 04/05/2019 10:56 AM Resu lts for this CDT procedure are i n the results section. TYPE AND SCREEN Routine 04/05/2019 10:56 AM Pain Shoulder Righ t Results for this CDT procedure are i n the results section. documented in this encounter Results Testing Location (04/05/2019 10:56 AM CDT) P athologist Signature Testing [facility] DEFAULT 04/05/2019 Location 11:04 AM CDT Specimen Anatomical Collection Method Collection Time Receive d Time (Source) Location / / Volume Laterality Blood 04/05/2019 10:56 04/05/2019 AM CDT 11:04 AM CDT Uriel Renner M.D. LAB BLOOD BANK TEST ORDERABL ES Performing Organization Address City/State/ZIP Code Phon e Number [facility] [id number] [address] [place] [facility] Type and Screen (with reflex Antibody ID) (04/05/2019 10:56 AM CDT) [facility] gist Method Time Signature ABO Group A 04/05/2019 12:30 PM CDT Rh Type POS 04/05/2019 12:30 PM CDT Antibody Screen NEG 04/05/2019 12:43 PM CDT Type & Screen 06/03/2019 04/05/2019 Expiration 23:59 12:43 PM CDT ELXM Eligible N 04/05/2019 12:43 PM CDT Specimen Anatomical Collection Method Collection Time Receive d Time (Source) Location / / Volume Laterality Blood (Blood, 04/05/2019 10:56 04/05/2019 Venous) AM CDT 11:04 AM CDT Narrative [facility] [place] [facility] - 04/05/2019 12:43 PM CDT Specimen Information: Specimen ID: [id number] Specimen Type: Blood Specimen Collection Start Date: 04/05/20 10:56 AM Specimen Received Date: 04/05/2019 11:04 AM Specimen ID: [id number] Specimen Type: Blood Specimen Collection Start Date: 04/05/20 10:48 AM Specimen Received Date: 04/05/2019 10:48 AM Uriel Renner M.D. LAB BLOOD BANK TEST ORDERABL ES Performing Organization Address City/State/ZIP Code Phon e Number [facility] [id number] [address] [place] [facility] documented in this encounter Visit Diagnoses Diagnosis Pain Shoulder Right documented in this encounter
--- OUTSIDE RECORDS SUMMARY | 2022-05-10 09:50 | XMS_ITS | Encounter Summary ---
:1945 Author Organization [facility] Address [address] [place] [id number] Care Team Providers Name Role Phone Unavailable Primary Care Provider Unavailable Encounter Details Date Type Department Care Team Description 06/26/[address] [facility] SURGERY Dennis Renner M.D. [address] [place] [address] (Wo rk) Social History Tobacco Use Types Packs/Day Years Used Date Smoking Tobacco: Never Assessed Alcohol Habits Answer Date Recorded How often [...] or relatives? How often do you attend shinto or Not asked nondenominational services? Do you belong to any clubs or Yes 04/11/2019 organizations such as shinto groups, unions, fraternal or athletic groups, or [...] Sign Reading Time Taken Comments Blood Pressure 146/71 06/26/2015 12:55 PM HYDRAULIC SPECIALIST Pulse 70 06/26/2015 12:55 PM HYDRAULIC SPECIALIST Temperature - - Respiratory Rate 14 06/26/2015 12:55 PM HYDRAULIC SPECIALIST Oxygen Saturation - - Inhaled Oxygen Concentration - - Weight - - Height 162.6 cm (5' 4) 06/26/2015 12:55 PM HYDRAULIC SPECIALIST Body Mass Index - - documented in this encounter Discharge Summaries Mohan Saavedra R.N. - 06/26/2015 1:01 PM CST Hospital Discharge Instructions [address] [id number] Patient Discharge Instructions Name: HEATHER HARRELL Current Date: 06/26/2015 13:01:17 : 1945 12:00 AM [facility] Number: [id number] Patient Address: [address] [place] [phone] Patient Primary Care Provider: Name: PCP, LISA Phone: Discharge Diagnosis: [facility] in [place] would like to thank you for allowing us to assist you withyour healthcare needs. The following includes patient education materials and information regarding your injury/illness. Comment: HEATHER HARRELL has been given the following list of follow-up instructions, medication list, and patient education materials: Follow-up Instructions With: Address: When: URIEL RENNER [id number] [place] [address] [facility] (1) 07/14/2015 8:15 AM Medications Medication/Strength How to Take Indications/Special Instructions/Comments/Notes for Patient Medication Changes/Routing aspirin (aspirin) 81 mg, Oral, once a day cholecalciferol (Vitamin D3 400 intl units oral tablet) 1 Tablet(s), Oral, once a day estradiol (estradiol 1 mg oral tablet) 1 Tablet(s), Oral, once a day levothyroxine (levothyroxine 25 mcg (0.025 mg) oral tablet) 1 Tablet(s), Oral, once a day metFORMIN (metFORMIN 750 mg oral tablet, extended release) 1 Tablet(s), Oral, once a day oxyCODONE-acetaminophen (Percocet 5/325 oral tablet) 1 to 2 tablets, Oral, every 4 hours as needed for Pain No more than 4,000mg acetaminophen/24hrs New Routed to Printer Stop Taking the Following Medications: Medication list as of 06-26-15 13:01 Attention: If you have any medications at home that are not on this list, DO NOT take them until youcontact your provider for clarification. Give a copy of your medication list to your primary care provider. Update your medication list any time medications or doses are changed and carry your medication list at all times in case of emergency. Comment: Electronically Signed By: URIEL RENNER MD Signed On:26-JUN-2015 09:45:25 Your Upcoming Appointments Date Time Location Provider 07/14/2015 08:15 [facility] Ortho Uriel Renner MD Consider Using Patient Online Services Patient Online Services is a secure online and Mobile application that lets you: ?? View lab and test results ?? View portions of your medical record including clinical notes, immunizations and discharge summaries ?? Request an appointment or medication refill ?? Review your appointment schedule ?? Send secure messages to your care team Its easy to create an account if you dont have one. Go to [email or web address] and click on Create Your Account. Then, follow the directions to complete the online form. Youll be asked for your [facility] number which you can find at the top of this document. EZEQUIEL Patterson SANDRA JEAN , have received the attached patient education materials/instructions andhave verbalized understanding: Patient Signature Date Time Care Provider Signature Date Time Managing Post-Op Pain at Home: Non-Medication Relief Medications are not the only way to manage pain after surgery. Try the following techniques. Visualization or Guided Imagery Visualization helps take your mind off the pain: ?? Close your eyes. Breathe deeply. ?? Picture yourself in a quiet, peaceful place. ?? Imagine how you feel in that place. ?? If other thoughts enter your mind, take a deep breath and try again. Progressive Body Relaxation Relaxation helps relieve stress and pain: ?? Close your eyes. Clench your foot muscles. ?? Hold for a few seconds. Release. ?? Repeat with the muscles in your calves. ?? Work slowly up your body. Deep Breathing Deep breathing relaxes your whole body: ?? Inhale slowly and deeply. ?? Hold your breath for a couple of seconds. ?? Exhale through your mouth slowly and deeply. ?? [id number] [facility], [address] [place] [address], [place] [address]. All rights reserved. This information is not intended as a substitute for professional medical care. Always follow your healthcare professional's instructions. Managing Post-Op Pain at Home: Medications Pain after an operation (post-op pain) is common and expected. These guidelines can help you stay ascomfortable as possible. Taking Pain Medications ?? Take medications on time. Do not take more than prescribed. ?? Take only the medications that your health care provider tells you to take. ?? Take pain medications with some food to avoid an upset stomach. ?? Dont drink alcohol while using pain medications. Types of Pain Medications Non-opioid: ?? Naeu-bek-wvvqovh (such as acetaminophen and ibuprofen) or prescription ?? All relieve mild to moderate pain and some reduce swelling ?? Possible side effects include stomach upset and bleeding ?? Check with your doctor before taking agns-gha-avlobxb pain medications in addition to your prescribed pain medication Opioid: ?? Always a prescription ?? Relieve moderate to severe pain ?? Possible side effects include stomach upset, nausea, and itching ?? May cause constipation (to help prevent this, eat high-fiber foods and drink plenty of water) Call your doctor or seek immediate attention if you notice any of these symptoms: Nausea, vomiting, diarrhea, lasting constipation, or stomach cramps Breathing problems or a fast heart rate Feeling very tired, sluggish, or dizzy Skin rash ?? [id number] [place] [address]. All rights reserved. This information is not intended as a substitute for professional medical care. Always follow your healthcare professional's instructions. After Shoulder Arthroscopy After your arthroscopy, you will recover in the hospital or surgery center for a few hours. In some cases, you may stay overnight. When you are able to go home, you will be instructed how to relieve any pain and how to care for your shoulder as it heals. To help with healing, a program of physical therapy (PT) may be prescribed. Physical therapy can help you regain full use of your shoulder. Your program will be tailored to your surgery. In the Recovery Room After surgery, youll be taken to a recovery area to rest. Youll have a bandage to protect your incisions, and a sling to hold your arm in place. Nurses will give you medications to help relieve pain. Adevice is sometimes used to deliver pain medication directly into the joint. In some cases, cold packs or a cooling unit may be used to reduce swelling in your shoulder. Going Home Before leaving the hospital or surgery center, be sure to know how to care for your shoulder at home. Ask any questions you have. Also know who to contact if you have questions later. When you are ready to leave the hospital or surgery center, an adult family member or friend will need to drive you home. At Home ?? Take prescribed pain medications as directed. Dont wait for pain to get bad before you take them. ?? Ice your shoulder 3 times a day for 20 minutes at a time. Use an ice machine (if given one) or a bag of ice or frozen peas. Put a thin cloth between your skin and the ice source. ?? Take care of your incisions as directed. You can begin bathing again in 3 days. ?? See your doctor for a follow-up visit 5 days after surgery. ?? Wear your sling as directed for 14 days. ?? Complete your physical therapy program. ?? Avoid these activities: , , Call Your Doctor If You Have ?? Fever over 101?F ?? Bleeding from an incision ?? Increased shoulder pain or swelling ?? A red or oozing incision ?? Numbness or tingling that doesnt go away 24 hours after surgery ?? [phone] [place] [address]. All rights reserved. This information is not intended as a substitute for professional medical care. Always follow your healthcare professional's instructions. This document has images extracted. Please consider using [employer] for all your patient education needs. Source: [facility] POWERCHART Document Id: [id number] AULIC SPECIALIST Mohan Saavedra R.N. - 06/26/2015 1:01 PM CST Hospital Discharge Medication List [address] [id number] Discharge Medication List Name: EZEQUIEL, HEATHERRA MASTERSON Current Date: 06/26/2015 13:01:17 : 1945 12:00 AM [facility] Number: [id number] Patient Address: [address] [place] [id number] Patient Primary Care Provider: Name: PCPLISA Phone: Discharge Diagnosis: [facility] in [place] would like to thank you for allowing us to assist you withyour healthcare needs. The following includes patient education materials and information regarding your injury/illness. Medications Medication/Strength How to Take Indications/Special Instructions/Comments/Notes for Patient Medication Changes/Routing aspirin (aspirin) 81 mg, Oral, once a day cholecalciferol (Vitamin D3 400 intl units oral tablet) 1 Tablet(s), Oral, once a day estradiol (estradiol 1 mg oral tablet) 1 Tablet(s), Oral, once a day levothyroxine (levothyroxine 25 mcg (0.025 mg) oral tablet) 1 Tablet(s), Oral, once a day metFORMIN (metFORMIN 750 mg oral tablet, extended release) 1 Tablet(s), Oral, once a day oxyCODONE-acetaminophen (Percocet 5/325 oral tablet) 1 to 2 tablets, Oral, every 4 hours as needed for Pain No more than 4,000mg acetaminophen/24hrs New Routed to Printer Stop Taking the Following Medications: Medication list as of 06-26-15 13:01 Attention: If you have any medications at home that are not on this list, DO NOT take them until youcontact your provider for clarification. Give a copy of your medication list to your primary care provider. Update your medication list any time medications or doses are changed and carry your medication list at all times in case of emergency. Comment: Electronically Signed By: URIEL RENNER MD Signed On:26-JUN-2015 09:45:25 Source: [facility] POWERCHART Document Id: [id number] AULIC SPECIALIST documented in this encounter Medications at Time of Discharge Medication Sig Dispensed Refills Start Date End Date aspirin 81 mg chewable Chew 81 mg daily. 0 2011 tablet aspirin-calcium carbonate Take 81 mg by mouth 0 0 10/07/2011 02/02/2021 81 mg-300 mg calcium(777 daily. mg) tablet documented as of this encounter Procedure Notes Gerber Pfeiffer R.N. - 06/26/2015 7:33 AM CST Preprocedure Checklist Document Has Been Updated Preprocedure Checklist Entered On: 06/26/2015 7:50 HYDRAULIC SPECIALIST Performed On: 06/26/2015 7:33 HYDRAULIC SPECIALIST by GERBER PFEIFFER RN Checklist Last Fluid Intake : 06/25/2015 19:30 HYDRAULIC SPECIALIST Last Food Intake : 06/25/2015 20:30 HYDRAULIC SPECIALIST GERBER PFEIFFER RN - 06/26/2015 7:33 HYDRAULIC SPECIALIST Surgery Prep Grid Contacts/Glasses Removed : NA Dentures Removed : NA Hairpins/Hairpiecies Removed : NA Hearing Aid Removed : NA Home Prep Complete : Yes Jewelry/Piercing Removed : Yes Makeup/Nail Irish Removed : Yes Oral Hygiene : NA Preop Scrub AM of Surgery : Yes Preop Scrub Night Prior to Surgery : Yes Prosthesis Removed : NA Tampon Removed : NA Verified - No hair products used : Yes Voided internal communications specialist to procedure : Yes Wearing Patient Gown : Yes GERBER PFEIFFER RN - 06/26/2015 7:33 HYDRAULIC SPECIALIST Patient Rights Grid Blood Consent Signed : NA Surgical/Procedure Consent Signed : Yes GERBER PFEIFFER RN - 06/26/2015 7:33 HYDRAULIC SPECIALIST Family Location : , [place], in pre/post 3 or family lounge. GERBER PFEIFFER RN - 06/26/2015 7:33 HYDRAULIC SPECIALIST Checklist II Patient Safety Grid Allergy Band on and Verified : Yes Anesthesia Consult : Yes Band on for Limb Alert : NA Blood Band on and Verified : NA Current ECG in Medical Record : Yes Current H&P in Medical Record : Yes Implants Verified : NA Medication Reconciliation on Chart : Yes Pacemaker/AICD Verified : NA ID Band on and Verified : Yes Preop Medications Sent With Patient : NA Relevant Images in Medical Record : Yes Review of Labs : Yes Procedure/Site Verified by Patient/Family : Yes Procedure/Site Verified by RN : Yes Procedure/Site Verified by Physician : Yes Type & Screen/Type & Cross Completed : GERBER MAGANA RN - 06/26/2015 7:33 HYDRAULIC SPECIALIST RN Who Verified Site : GERBER PFEIFFER RN Physician Who Verified Site : URIEL RENNER MD, KASEY J RN - 06/26/2015 7:33 HYDRAULIC SPECIALIST ADEN Screening Known Obstructive Sleep Apnea : No - NOT diagnosed with ADEN ADEN Score : No qualifying data available. ADEN Results : No qualifying data available. GERBER PFEIFFER RN - 06/26/2015 7:33 HYDRAULIC SPECIALIST ADEN Assessment Do you have high blood pressure or have you been told to take medication for high blood pressure? : No Frequency of Snoring : Usually (3-5 times per week) Frequency of Gasping, Choking, Snorting : Sometimes (1-2 times per month) Total Number of Historical Features : 1 Neck Circumference - ADEN 1 : 34/35 Total Sleep Apnea Clinical Score 1 Calc : 2 GERBER PFEIFFER RN - 06/26/2015 7:33 HYDRAULIC SPECIALIST Valuables/Belongings Comment : Patient's clothing is in pre/post room 3 GERBER PFEIFFER RN - 06/26/2015 7:33 HYDRAULIC SPECIALIST Education Preprocedure Education Grid Procedure Type : Shoulder arthoscopy Education Topics : Anesthesia/Sedation, Pain management, Patient rights and responsibilities, Plan of care, Tubes/Drains/IV's Individuals Taught : Patient Barriers to Learning : None evident Teaching Method : Explanation Teaching Evaluation : Verbalizes understanding GERBER PFEIFFER RN - 06/26/2015 7:33 HYDRAULIC SPECIALIST Preop Holding Mode of Arrival : Ambulatory Preoperative Orders Complete : Yes GEREBR PFEIFFER RN - 06/26/2015 7:33 HYDRAULIC SPECIALIST Advance Directive Advanced Directives : Yes Advance Directive Type : Mental Health Directive Advance Directive Location : Unable to obtain copy Advance Directive Intent Stated By : Self Intent of Advance Directive (In Patient's Own Words) : Comfort GERBER PFEIFFER RN - 06/26/2015 7:33 HYDRAULIC SPECIALIST Vital Signs Temperature Core : 36.4 DegC(Converted to: 97.5 DegF) (LOW) Peripheral Pulse Rate : 75 /min Respiratory Rate : 14 /min Systolic Blood Pressure : 104 mmHg Diastolic Blood Pressure : 89 mmHg NIBP Mean : 94 mmHg SpO2 : 99 % Oxygen Therapy : Room air Height : 162.56 cm(Converted to: 5 ft 4 inch(es)) GERBER PFEIFFER RN - 06/26/2015 7:33 HYDRAULIC SPECIALIST Allergy (As Of: 06/26/2015 07:50:07 HYDRAULIC SPECIALIST) Allergies (Active) codeine Estimated Onset Date: Unspecified ; Reactions: Vomiting ; Created By: KAYLA MUSE RN; Reaction Status: Active ; Category: Drug ; Substance: codeine ; Type: Allergy ; Severity: Severe ; Updated By: KAYLA GROVE RN; Source: Patient ; Reviewed Date: 06/26/2015 7:50 HYDRAULIC SPECIALIST Source: [facility] POWERCHART Document Id: [id number] HYDRAULIC SPECIALIST!86 AULIC SPECIALIST documented in this encounter Nursing Notes Gerber Pfeiffer R.N. - 06/26/2015 7:50 AM CST Day Surgery Admission History/Asmt Adult Document Has Been Updated Day Surgery Admission History/Asmt Adult Entered On: 06/26/2015 7:53 HYDRAULIC SPECIALIST Performed On: 06/26/2015 7:50 HYDRAULIC SPECIALIST by GERBER PFEIFFER RN General Info Preferred Name : Heather Admitted From : Non-Health Care Facility Point of Origin Languages : Frisian Is Patient Female and 13-50 no hysterectomy : No GERBER PFEIFFER RN - 06/26/2015 7:50 HYDRAULIC SPECIALIST Allergy (As Of: 06/26/2015 07:53:25 HYDRAULIC SPECIALIST) Allergies (Active) codeine Estimated Onset Date: Unspecified ; Reactions: Vomiting ; Created By: KAYLA MUSE RN; Reaction Status: Active ; Category: Drug ; Substance: codeine ; Type: Allergy ; Severity: Severe ; Updated By: KAYLA GROVE RN; Source: Patient ; Reviewed Date: 06/26/2015 7:50 HYDRAULIC SPECIALIST Anesth/Transfusion Anesthesia/Transfusions : Prior anesthesia GERBER PFEIFFER RN - 06/26/2015 7:50 HYDRAULIC SPECIALIST ID Screen Drug Resistant Organism : No Travel Within Last 21 Days : No Contact with someone with Ebola : No GERBER PFEIFFER RN - 06/26/2015 7:50 HYDRAULIC SPECIALIST Nutrition Have you recently lost weight without trying? : No Decreased Appetite Nutrition : No Tube Feedings or Parenteral Nutrition : No MST Score : 0 Home Diet : Regular Appetite : Excellent Eating Difficulties : None GERBER PFEIFFER RN - 06/26/2015 7:50 HYDRAULIC SPECIALIST Home Environment Current Daily Living Assistance : None Home Equipment : None Sensory Deficits : None Mobility Assistance Prior to Admission : Independent Current Home Treatments : None Professional Skilled Services : None Special Services and Community Resources : None GERBER PFEIFFER RN - 06/26/2015 7:50 HYDRAULIC SPECIALIST Dependent Habits Tobacco Use/Currently Using : No Smoking Status : Former smoker GERBER PFEIFFER RN - 06/26/2015 7:50 HYDRAULIC SPECIALIST Psychosocial Adult Domestic Abuse Concerns : None Behavioral Health Screen/Safety Assmt : No Muslim Preference : Unknown GERBER PFEIFFER RN - 06/26/2015 7:50 HYDRAULIC SPECIALIST Advance Directive Advanced Directives : Yes Advance Directive Type : Mental Health Directive Advance Directive Location : Unable to obtain copy Advance Directive Intent Stated By : Self Intent of Advance Directive (In Patient's Own Words) : Comfort GERBER PFEIFFER RN - 06/26/2015 7:50 HYDRAULIC SPECIALIST Educ Needs Patient/Family Education Needs : Pain management, Plan of care, Postoperative instructions, Preoperative instructions, Safety, fall, Surgery, Treatments/Procedures/Tests GERBER PFEIFFER RN - 06/26/2015 7:50 HYDRAULIC SPECIALIST Learning Style Preference Adult Grid Patient : Verbal explanation Family : Verbal explanation GERBER PFEIFFER RN - 06/26/2015 7:50 HYDRAULIC SPECIALIST Outpatient Assessment Procedural Respiratory : Respirations unlabored, Respiratory pattern regular, Breath sounds clear all lobes, No cough Procedural Cardiovascular : Heart rhythm regular, Skin color normal for ethnicity, Skin dry and warm Procedural Antiembolism Device : Sequential Compression Device Procedural Neurological : Alert, Oriented x 3, Gait steady, No swallowing difficulty/aspiration risk Procedural Gastrointestinal : Abdomen non-tender and soft, Bowel sounds all quadrants Procedural Genitourinary : Voiding, no difficulties Procedural Integumentary : Skin integrity intact Procedural Musculoskeletal : Activity tolerance without distress GERBER PFEIFFER RN - 06/26/2015 7:50 HYDRAULIC SPECIALIST Psycho/Emotional Pain Symptoms : No Affect/Behavior : Calm, Cooperative, Appropriate Feels Rested : Yes GERBER PFEIFFER RN - 06/26/2015 7:50 HYDRAULIC SPECIALIST Coping Grid Identifies effective strategies : Yes Uses effective strategies : Yes Reports increase in psychological comfort : Yes Indicates sense of control : Yes Stressors perceived within control : Yes Stable mood with appropriate affect : Yes Behaviors indicate use of coping mechanism : Yes Family supportive and involved in care : Yes Values/Beliefs incorporated appropriately : Yes GERBER PFEIFFER RN - 06/26/2015 7:50 HYDRAULIC SPECIALIST Peripheral IV Peripheral IV Assess/Intervention Grid Peripheral IV #1 IV Activity : Start Number of Attempts : 1 Date of Insertion : 06/26/2015 HYDRAULIC SPECIALIST IV Site : Hand Laterality : Right Catheter Size : 18 Catheter Type : Protective Site Condition : No complications GERBER PFEIFFER RN - 06/26/2015 7:50 HYDRAULIC SPECIALIST Chris Sensory Perception Chris : No impairment Moisture Chris : Rarely moist Activity Chris : Walks frequently Mobility Chris : No limitations Nutrition Chris : Excellent Friction and Shear Chris : No apparent problem Chris Score : 23 GERBER PFEIFFER RN - 06/26/2015 7:50 HYDRAULIC SPECIALIST Hendrich II Fall Risk Confusion/Disorientation Hendrich : No Depression Fall Risk Hendrich : No Altered Elimination Fall Risk Hendrich : No Dizziness/Vertigo Fall Risk Hendrich : No Gender, Male Fall Risk Hendrich : No Prescribed Antiepileptics Hendrich : No Prescribed Benzodiazepines Hendrich : No Rising From Chair Fall Risk Hendrich : Unable to rise without assistance Fall Risk Score Hendrich II : 4 GERBER PFEIFFER RN - 06/26/2015 7:50 HYDRAULIC SPECIALIST DC Needs Anticipated Discharge Date : 06/26/2015 HYDRAULIC SPECIALIST Discharge To, Anticipated : Home with family care GERBER PFEIFFER RN - 06/26/2015 7:50 HYDRAULIC SPECIALIST Integumentary Integumentary Patient Stated Symptoms : None Skin Turgor : Elastic Skin Integrity : Intact Mucous Membrane Color : [place] Mucous Membrane Description : Moist Skin Color : Normal for ethnicity Skin Description : Dry, Normal Skin Temperature : Warm GERBER PFEIFFER RN - 06/26/2015 7:50 HYDRAULIC SPECIALIST Source: [facility] POWERCHART Document Id: [id number] HYDRAULIC SPECIALIST!110 AULIC SPECIALIST Gerber Pfeiffer R.N. - 06/18/2015 1:36 PM CST Pre Procedure Phone Call Document Contains Addenda Addendum by GERBER PFEIFFER RN on 19 June 2015 8:24 HYDRAULIC SPECIALIST Patient is currently on Metformin to manage diabetes. Will hold AM of surgery. Modified by and Electronically Signed by: GERBER PFEIFFER RN On: 06/19/2015 08:24 AM SURGERY NURSE FILM HISTORIAN Procedure: Left shoulder arthroscopy, SAD, DCR, biceps, tenotomy, possible mini open rotator cuff repair Date: 06/26/15 PCP: _Aida Assessment Smoker (_) Yes (x) No Former If yes PPD _ Alcohol use _ Monthly EKG _ Yes Labs _ Yes Dentures (_) Yes (x) No Hearing aids (_) Yes (x) No Allergies: codeine Medical History Verification (x) Yes (_) No _ Recent respiratory issues (_) Yes (x) No GERD/Reflux/Ulcers (x) Yes (_) No_ Patient reports having some heartburn, but resolves with TUMS. Kidney Issues (_) Yes (x) No Bleeding tendencies (x) Yes (_) No_ Patient reports bruising easily Liver issues (_) Yes (x) No Current Medications(including herbal and OTC's) Beta Claude (_) Yes (x) No _ Antiarrhythmic (_) Yes (x) No _ ASA (x) Yes (_) No_ Holding for 10 days prior to procedure Coumadin (_) Yes (x) No NSAIDS (_) Yes (x) No Steroids (_) Yes (x) No Diabetic oral/insulin (_) Yes (x) No If yes have you discussed use preprocedure with primary care provider (_) Yes (_) No. Comment: _ Skin Alert Assessment: Complete this section only if the patient is greater than or equal to 18 y/o BMI <19 or >40: (_) Yes (x) No Documented risk factors that indicate higher risk for pressure ulcer? (_) Yes (x) No Is patient chair-bound or unable to reposition themselves? (_) Yes (x) No Do you have impaired sensation? (_) Yes (x) No Anesthesia Risk Assessment: Do you use a CPAP or BiPAP machine? (_) Yes (x) No: patient instructed to bring day of surgery (_) Yes Have you been told that it is difficult to place a breathing tube in your airway (intubate)? (_) Yes(x) No Comment: _ Do you or a family member have a history of high fever after anesthesia (malignant hyperthermia)? (_) Yes (x) No. Comment: _ Do you have any personal or family history of severe allergic or anaphylactic reactions to anesthetic agents? (_) Yes (x) No. Comment: _ Do you have difficulties lying flat? (_) Yes (x) No. Comment: _ Do you have any nondenominational or other objection to having a blood transfusion? (_) Yes (x) No Scheduling Follow-Up: Development Representative requested: (x) N/A (_) Yes Comment: _ Ortho Patients Only: Total Joint Class scheduled: (x) N/A Date: _ Knee Manipulation-CPM set-up: (x) N/A (_) Yes Comment: _ If OT apt needed - setup one hour after clinic post-op: (x) N/A (_) Yes Pre-op teaching reviewed with patient including instruction on: -Must shower the night before surgery and the morning of surgery to reduce the risk of infection. -For procedures above the shoulders patient must wash their hair the night before or the morning of surgery and then no styling products in the hair. -truck driver's offsider required for same day surgery patients, patient should not be alone for 24 hours after surgery and most patients are discharged 1-3 hours after surgery -If there are changes in health prior to surgery notify department performing surgery -where and how to check in on day of surgery -what to bring with on the day of the surgery Fasting guidelines: (x)Adults and children over 2 years old - Nothing to eat or drink after midnight the day before surgery with the exception that clear liquids only are allowed until 4 hours before arrival time. At 4 hours before arrival time nothing by mouth Patient and/or parent/guardian informed that failure to follow the fasting guidelines may result in case cancellation. Planning for surgery: -All surgery patients must have a pre-op physical within 30 days of surgery , - Surgery brochure given or mailed to patient if they have not received one already, reviewed surgical site infection teaching sheet, reviewed orthopedic pain management letter for all orthopedic cases and offered patient guided imagery CD -Reviewed managing your pain insert and patient has a copy in writing (_)Total Joint Surgery: Total Joint Class (good for one year) and gave patient hibiclens packet and reviewed preop showering instructions (_)Reviewed parental presence program (_)Reviewed tonsillectomy teaching sheet (_)Reviewed ear tube teaching sheet (_)Pre op PT appt (ACL repairs only) Post op appointments: 1st po with surgeon or physician pastry assistant: (x) made (_)TBD (_)Audiology appointment (PE tubes), (_)2 days post op ultrasound to r/o DVT (VNUS closure), (_)PO OT appt made (Hand surgery if requested) Electronically Signed By: GERBER PFEIFFER RN On: 06/19/2015 08:17 AM Modified by and Electronically Signed by: GERBER PFEIFFER RN On: 06/19/2015 08:17 AM [facility] Document Id: [id number] AULIC SPECIALIST documented in this encounter OR Notes Op Note - Uriel Renner M.D. - 06/26/2015 12:00 AM CST [id number] PREOPERATIVE DIAGNOSIS Left shoulder rotator cuff tear, impingement and acromioclavicular joint arthrosis. POSTOPERATIVE DIAGNOSIS Left shoulder rotator cuff tear, impingement and acromioclavicular joint arthrosis. PROCEDURE Left shoulder arthroscopy, subacromial decompression, distal clavicle resection and mini open rotator cuff repair. SURGEON Uriel Renner MD ANESTHESIA General anesthesia. ESTIMATED BLOOD LOSS Minimal. INDICATIONS Heather is a 69-year-old woman who had the onset of significant left shoulder pain. Despite conservative measures, she made no significant improvement in her symptoms. Discussed risks, benefits and alternatives to shoulder arthroscopy, subacromial decompression, distal clavicle resection and mini open rotator cuff repair with her. She understands these and desires to proceed with surgery. OPERATIVE SUMMARY Patient was brought to the operating room and placed on the operating table in the supine position. General anesthesia was smoothly induced, then placed in a right lateral decubitus position appropriately padded and secured. Left arm was placed in balanced suspension, prepped and draped in sterile fashion. Attention was brought to the posterior aspect of the shoulder. A small incision was made there.Trocar was advanced through the incision into the glenohumeral joint. Using an inside-out technique,an anterior portal was established. Medially, it was noted that her supraspinatus tendon has substantial tearing with a flap on its undersurface. A shaver was then used to remove this flap of tissue. It did not appear to be a full thickness tear, but a very thin area covering over the top of this. Thebiceps tendon appeared to be intact with a bit of a mild tearing noted. No significant degenerative changes were noted to the glenohumeral joint. Once that was completed, the scope was then advanced from posterior the subacromial space. A small incision was made laterally. A trocar was advanced through the incision, and we then cleared away the soft tissue from the undersurface of the acromion followed by a bur to do an appropriate subacromial decompression. Once that was completed, we turned our attention the AC joint. A cannula was then placed from anteriorly into the AC joint. An ablation devicewas then used to remove soft tissue from the AC joint followed by a bur to do an appropriate distal clavicle resection. Once that was completed, we then evaluated the rotator cuff. It appeared to have substantial tearing from the top side in a similar location as the undersurface. Once that was determined, our lateral incision was then advanced to approximately an inch and a half long. It was broughtdown through the deltoid fascia to the subdeltoid space. Able visualize the rotator cuff tear. The remaining portion of the rotator cuff tear was then excised using it a knife. We then denuded the bonewith a bur. Two medial row anchors were then placed with suture passed up through the rotator cuff. These were then tied down, and 2 lateral row anchors were used to pound these sutures into place. Seemed to have a nice solid repair with nice solid tissue and bone. The incision was then copiously irrigated. The deltoid fascia was then closed using 0 Vicryl in a running fashion followed by 3-0 Vicryl for the subcutaneous tissue and 4-0 Monocryl for the skin. The incision was then washed and dried. Steri-Strips were applied followed by a nonadherent dressing and tape. Patient was placed in supine position, x-rayed and transferred to the recovery room in good condition. Needle and sponge counts were correct at the end of the case. Uriel Renner M.D./opal Electronically Signed By: URIEL RENNER MD On: 06/30/2015 09:03 AM Source: [facility] [id number] Document Id: [id number] AULIC SPECIALIST documented in this encounter Miscellaneous Notes Miscellaneous - Conversion, Historical Provider Ser - 06/26/2015 1:03 PM HYDRAULIC SPECIALIST Coding Summary-Paper Based CODING DATE: 06/30/2015 FINAL [place] [facility] STATUS: * Discharged to Home or Self Care PAYOR: [employer] DESCRIPTION 0051 Level III Musculoskeletal Procedures Except Hand and Foot 0042 Arthroscopically-Aided Procedures ADMIT DX: REASON FOR VISIT DX: FINAL DX: PRINCIPAL: M75.112 Incomplete rotator cuff tear or rupture of left shoulder, not specified as traumatic SECONDARY: M19.012 Primary osteoarthritis, left shoulder M24.812 Other specific joint derangements of left shoulder, not elsewhere classified E11.9 Type 2 diabetes mellitus without complications PYMT PROC APC STAT DESCRIPTION DOCTOR NAME DATE [id number] 0042 T SHOULDER URIEL RENNER MD 06/26/2015 ARTHROSCOPY/SURGERY LT LEFT SIDE (USED TO IDENTIFY PROCEDURES PERFORMED ON THE LEFT SIDE OF THE BODY) [id number] SHOULDER URIEL RENNER MD 06/26/2015 ARTHROSCOPY/SURGERY LT LEFT SIDE (USED TO IDENTIFY PROCEDURES PERFORMED ON THE LEFT SIDE OF THE BODY) 59 Distinct Procedural Service [id number] REPAIR ROTATOR CUFF URIEL RENNER MD 06/26/2015 CHRONIC LT LEFT SIDE (USED TO IDENTIFY PROCEDURES PERFORMED ON THE LEFT SIDE OF THE BODY) NOTE: The code number assigned matches the documented diagnosis and / or procedure in the patient's chart. However, the narrative phrase printed from the coding software may appear abbreviated, or result in slightly different terminology. Revised Coded By: DEMETRIUS OGLESBY Revised Date Saved: 06/30/2015 07:06 pm Source: [facility] POWERCHART Document Id: [id number] Miscellaneous - Mohan Saavedra, R.N. - 06/26/2015 12:55 PM CST Adult Postprocedure Assessment Adult Postprocedure Assessment Entered On: 06/26/2015 12:57 HYDRAULIC SPECIALIST Performed On: 06/26/2015 12:55 HYDRAULIC SPECIALIST by MOHAN SAAVEDRA RN Vital Signs Temperature Core : 36.1 DegC(Converted to: 97.0 DegF) (LOW) Peripheral Pulse Rate : 70 /min Respiratory Rate : 14 /min Systolic Blood Pressure : 146 mmHg (HI) Diastolic Blood Pressure : 71 mmHg NIBP Mean : 96 mmHg SpO2 : 95 % Oxygen Saturation Monitoring Frequency : Continuous Oxygen Therapy : Room air Height : 162.56 cm(Converted to: 5 ft 4 inch(es)) MOHAN SAAVEDRA RN - 06/26/2015 12:55 HYDRAULIC SPECIALIST General Level of Consciousness : Alert Orientation : Oriented x 3 Skin Color : Normal for ethnicity Skin Description : Dry Skin Temperature : Warm Pain Symptoms : Yes MOHAN SAAVEDRA RN - 06/26/2015 13:29 HYDRAULIC SPECIALIST Pain Scale Pain Scale Verbal 0-10 : Open MOHAN SAAVEDRA RN - 06/26/2015 13:29 HYDRAULIC SPECIALIST Pain Pain Assessment Grid Pain 1 Location : Shoulder Laterality : Left Intensity : 3 MOHAN SAAVEDRA RN - 06/26/2015 13:29 HYDRAULIC SPECIALIST Cardiovascular Heart Rhythm : Regular Nail Bed Color : [place] Capillary Refill : Less than 2 seconds MOHAN SAAVEDRA RN - 06/26/2015 13:29 HYDRAULIC SPECIALIST Respiratory Respiratory Patient Stated Symptoms : None Respirations : Unlabored Distress : None Respiratory Pattern : Regular All Lobes Breath Sounds : Clear Cough and Deep Breathe : Done Cough : None MOHAN SAAVEDRA RN - 06/26/2015 13:29 HYDRAULIC SPECIALIST GI/ Nausea Symptoms : Yes (Comment: minimal [MOHAN SAAVEDRA RN - 06/26/2015 13:29 HYDRAULIC SPECIALIST] ) MOHAN SAAVEDRA RN - 06/26/2015 13:29 HYDRAULIC SPECIALIST Integumentary Skin Color : Normal for ethnicity Skin Description : Dry Skin Temperature : Warm MOHAN SAAVEDRA RN - 06/26/2015 13:29 HYDRAULIC SPECIALIST Incision/Wound Incision/Wound Care Grid Activity : Assessed Type : Surgical acute Location : Shoulder Laterality : Left Description : Other: no change MOHAN SAAVEDRA RN - 06/26/2015 13:29 HYDRAULIC SPECIALIST Peripheral IV Peripheral IV Assess/Intervention Grid Peripheral IV #1 IV Activity : Discontinue Removal : Catheter intact, Hemostasis within expected timeframe Number of Attempts : 1 Date of Insertion : 06/26/2015 HYDRAULIC SPECIALIST IV Site : Hand Laterality : Right Catheter Size : 18 Catheter Type : Protective Site Condition : No complications Drainage Description : None Infiltration Score : 0 Phlebitis Score : 0 MOHAN SAAVEDRA RN - 06/26/2015 13:29 HYDRAULIC SPECIALIST I&O Oral Intake : 200 mL Other Intake : 100 mL (Comment: I.V. fluids [DOMINICK MOHAN Sharron - 06/26/2015 13:29 HYDRAULIC SPECIALIST] ) DOMINICK MOHAN Mcdermott - 06/26/2015 13:29 HYDRAULIC SPECIALIST Neurologic Swallowing Difficulty/Aspiration Risk : None Extremity Movement : Unequal Facial Symmetry : Symmetric Characteristics of Speech : Clear MOHAN SAAVEDRA - 06/26/2015 13:29 HYDRAULIC SPECIALIST Upper Extremity Nail Bed Color Hands Grid Left Hand : [place] Right Hand : [place] MOHAN SAAVEDRA - 06/26/2015 13:29 HYDRAULIC SPECIALIST Capillary Refill Hand Grid Left Hand : < 2 seconds Right Hand : < 2 seconds DOMINICK MOHAN A - 06/26/2015 13:29 HYDRAULIC SPECIALIST Upper Extremity Color Grid Left : [place] Right : [place] MOHAN SAAVEDRA 06/26/2015 13:29 HYDRAULIC SPECIALIST Upper Extremity Temperature Grid Left : Warm Right : Warm MOHAN SAAVEDRA 06/26/2015 13:29 HYDRAULIC SPECIALIST [place] Upper Extremity Pulses Grid Radial Pulse, Left : 2+ Normal Radial Pulse, Right : 2+ Normal MOHAN SAAVEDRA - 06/26/2015 13:29 HYDRAULIC SPECIALIST NV Upper Extremity Sensation Grid Dorsal Web Space Thumb/Index Finger Left : Absent Dorsal Web Space Thumb/Index Finger Right : Intact Distal Fat Pad/Small Finger Left : Absent Distal Fat Pad/Small Finger Right : Intact Distal Fat Pad/Index Finger Left : Absent Distal Fat Pad/Index Finger Right : Intact MOHAN SAAVEDRA 06/26/2015 13:29 HYDRAULIC SPECIALIST Activity Patient Position : Elevate head of bed 45 degrees Activity Status ADL : Up ad logan (Comment: standby assistance [DOMINICKMOHAN - 06/26/2015 13:29 HYDRAULIC SPECIALIST] ) Activity Assistance : Stand-by assistance MOHAN SAAVEDRA - 06/26/2015 13:29 HYDRAULIC SPECIALIST PARSAP Activity Status : Moves 2 extremities voluntarily or on command Dressing : Dry and clean (Comment: dry on the exterior [DOMINICK MOHAN Sharron - 06/26/2015 13:29 HYDRAULIC SPECIALIST] ) Respiratory Component : Able to deep breathe and cough freely Pain : Pain mild, handled by oral medication (Comment: refused pain medication [DOMINICK MOHAN Sharron - 06/26/2015 13:29 HYDRAULIC SPECIALIST] ) Circulation Component : BP 20% of preanesthetic level Ambulation : Able to stand up and walk straight Consciousness : Fully awake Fasting and Feeding : Able to drink fluids Oxygen Saturation - Sedation : Can maintain > 92% on room air Urine Output, PARSAP : Has voided PARSAP Score : 18 MOHAN SAAVEDRA RN - 06/26/2015 13:29 HYDRAULIC SPECIALIST Valdovinos Valdovinos Agitation Sedation Scale (RASS) : Alert and calm RASS Score : 0 MOHAN SAAVEDRA RN - 06/26/2015 13:29 HYDRAULIC SPECIALIST Chris Sensory Perception Chris : Slightly limited Moisture Chris : Rarely moist Activity Chris : Walks frequently Mobility Chris : No limitations Nutrition Chris : Excellent Friction and Shear Chris : No apparent problem Chris Score : 22 MOHAN SAAVEDRA RN - 06/26/2015 13:29 HYDRAULIC SPECIALIST Hendrich II Fall Risk Confusion/Disorientation Hendrich : No Depression Fall Risk Hendrich : No Altered Elimination Fall Risk Hendrich : No Dizziness/Vertigo Fall Risk Hendrich : No Gender, Male Fall Risk Hendrich : No Prescribed Antiepileptics Hendrich : No Prescribed Benzodiazepines Hendrich : Yes Rising From Chair Fall Risk Hendrich : Able to rise in a single movement, no loss of balance with steps Fall Risk Score Hendrich II : 1 MOHAN SAAVEDRA RN - 06/26/2015 13:29 HYDRAULIC SPECIALIST Safe Patient Handling Safe Pt Handling Independent : Yes - No equipment needed Safe Pt Handling Equipment Rec : No Equipment Needed MOHAN SAAVEDRA RN - 06/26/2015 13:29 HYDRAULIC SPECIALIST Education General Patient Education Powergrid Topics : Activity limitations/expectations, Discharge instructions/Medication list, Importance of follow-up visits, Physical limitations, Postoperative instructions, Printed materials, Safety, fall, Turn/Cough/Deep breathing, When to call health care provider, Wound care Individuals Taught : Patient, Spouse Barriers to Learning : None evident Teaching Method : Explanation, Printed materials Teaching Evaluation : Verbalizes understanding MOHAN SAAVEDRA RN - 06/26/2015 13:29 HYDRAULIC SPECIALIST Source: [facility] POWERCHART Document Id: [id number] HYDRAULIC SPECIALIST!147 AULIC SPECIALIST Miscellaneous - Mohan Saavedra R.N. - 06/26/2015 12:00 PM CST Adult Postprocedure Assessment Adult Postprocedure Assessment Entered On: 06/26/2015 12:09 HYDRAULIC SPECIALIST Performed On: 06/26/2015 12:00 HYDRAULIC SPECIALIST by MOHAN SAAVEDRA RN Vital Signs Temperature Core : 36.3 DegC(Converted to: 97.3 DegF) (LOW) Peripheral Pulse Rate : 66 /min Apical Heart Rate : 66 /min Respiratory Rate : 19 /min Systolic Blood Pressure : 155 mmHg (HI) Diastolic Blood Pressure : 74 mmHg NIBP Mean : 101 mmHg SpO2 : 94 % Oxygen Saturation Monitoring Frequency : Continuous Oxygen Therapy : Other: blow-by Height : 162.56 cm(Converted to: 5 ft 4 inch(es)) MOHAN SAAVEDRA RN - 06/26/2015 12:05 HYDRAULIC SPECIALIST General Level of Consciousness : Alert Orientation : Oriented x 3 Skin Color : Normal for ethnicity Skin Description : Dry Skin Temperature : Warm Pain Symptoms : Yes MOHAN SAAVEDRA RN - 06/26/2015 12:05 HYDRAULIC SPECIALIST Pain Scale Pain Scale Verbal 0-10 : Open MOHAN SAAVEDRA RN - 06/26/2015 12:05 HYDRAULIC SPECIALIST Pain Pain Assessment Grid Pain 1 Location : Shoulder Laterality : Left Intensity : 3 MOHAN SAAVEDRA RN - 06/26/2015 12:05 HYDRAULIC SPECIALIST Cardiovascular Heart Rhythm : Regular Nail Bed Color : [place] Capillary Refill : Less than 2 seconds Antiembolism Device : Sequential Compression Device Antiembolism Device Laterality : Bilateral MOHAN SAAVEDRA RN - 06/26/2015 12:09 HYDRAULIC SPECIALIST Respiratory Respiratory Patient Stated Symptoms : None Respirations : Unlabored Distress : None Respiratory Pattern : Regular Cough : None MOHAN SAAVEDRA RN - 06/26/2015 12:09 HYDRAULIC SPECIALIST GI/ Nausea Symptoms : Yes (Comment: better it won't go away until tomorrow [MOHAN SAAVEDRA RN - 06/26/2015 12:09 HYDRAULIC SPECIALIST] ) MOHAN SAAVEDRA RN - 06/26/2015 12:09 HYDRAULIC SPECIALIST Integumentary Skin Color : Normal for ethnicity Skin Description : Dry Skin Temperature : Warm MOHAN SAAVEDRA RN - 06/26/2015 12:09 HYDRAULIC SPECIALIST Incision/Wound Incision/Wound Care Grid Activity : Assessed Type : Surgical acute Location : Shoulder Laterality : Left Description : Other: no changes MOHAN SAAVEDRA RN - 06/26/2015 12:09 HYDRAULIC SPECIALIST Peripheral IV Peripheral IV Assess/Intervention Grid Peripheral IV #1 IV Activity : Assessment Number of Attempts : 1 Date of Insertion : 06/26/2015 HYDRAULIC SPECIALIST IV Site : Hand Laterality : Right Catheter Size : 18 Catheter Type : Protective Infiltration Score : 0 Phlebitis Score : 0 Flow/ Patency : No complications MOHAN SAAVEDRA - 06/26/2015 12:09 HYDRAULIC SPECIALIST I&O Other Intake : 250 mL (Comment: I.V. fluids [MOHAN SAAVEDRA - 06/26/2015 12:09 HYDRAULIC SPECIALIST] ) MOHAN SAAVEDRA - 06/26/2015 12:09 HYDRAULIC SPECIALIST Neurologic Swallowing Difficulty/Aspiration Risk : None Extremity Movement : Unequal (Comment: left arm in sling = placed in sling upon return from surgery about 1015 [MOHAN SAAVEDRA - 06/26/2015 12:09 HYDRAULIC SPECIALIST] ) Facial Symmetry : Symmetric Characteristics of Speech : Clear MOHAN SAAVEDRA - 06/26/2015 12:09 HYDRAULIC SPECIALIST Upper Extremity Nail Bed Color Hands Grid Left Hand : [place] Right Hand : [place] MOHAN SAAVEDRA - 06/26/2015 12:09 HYDRAULIC SPECIALIST Capillary Refill Hand Grid Left Hand : < 2 seconds Right Hand : < 2 seconds DOMINICKMOHAN - 06/26/2015 12:09 HYDRAULIC SPECIALIST Upper Extremity Color Grid Left : [place] Right : [place] MOHAN SAAVEDRA - 06/26/2015 12:09 HYDRAULIC SPECIALIST Upper Extremity Temperature Grid Left : Warm Right : Warm MOHAN SAAVEDRA - 06/26/2015 12:09 HYDRAULIC SPECIALIST [place] Upper Extremity Pulses Grid Radial Pulse, Left : 2+ Normal Radial Pulse, Right : 2+ Normal MOHAN SAAVEDRA - 06/26/2015 12:09 HYDRAULIC SPECIALIST NV Upper Extremity Sensation Grid Dorsal Web Space Thumb/Index Finger Left : Absent Dorsal Web Space Thumb/Index Finger Right : Intact Distal Fat Pad/Small Finger Left : Absent Distal Fat Pad/Small Finger Right : Intact Distal Fat Pad/Index Finger Left : Absent Distal Fat Pad/Index Finger Right : Intact MOHAN SAAVEDRA - 06/26/2015 12:09 HYDRAULIC SPECIALIST PARSAP Activity Status : Moves 2 extremities voluntarily or on command Dressing : Wet but marked and not increasing Respiratory Component : Able to deep breathe and cough freely Pain : Pain mild, handled by oral medication (Comment: nothing has been given for pain [MOHAN SAAVEDRA - 06/26/2015 12:09 HYDRAULIC SPECIALIST] ) Circulation Component : BP 20% of preanesthetic level Consciousness : Fully awake Fasting and Feeding : Nauseated (Comment: better [MOHAN SAAVEDRA RN - 06/26/2015 12:09 HYDRAULIC SPECIALIST] ) Oxygen Saturation - Sedation : Needs oxygen to maintain greater than 90% Urine Output, PARSAP : Unable to void but comfortable MOHAN SAAVEDRA RN - 06/26/2015 12:09 HYDRAULIC SPECIALIST Valdovinos Valdovinos Agitation Sedation Scale (RASS) : Alert and calm RASS Score : 0 MOHAN ASAVEDRA RN - 06/26/2015 12:09 HYDRAULIC SPECIALIST Chris Sensory Perception Chris : Slightly limited Moisture Chris : Rarely moist Activity Chris : Walks frequently Mobility Chris : Slightly limited Nutrition Chris : Adequate Friction and Shear Chris : No apparent problem Chris Score : 20 MOHAN SAAVEDRA RN - 06/26/2015 12:09 HYDRAULIC SPECIALIST Hendrich II Fall Risk Confusion/Disorientation Hendrich : No Depression Fall Risk Hendrich : No Altered Elimination Fall Risk Hendrich : No Dizziness/Vertigo Fall Risk Hendrich : No Gender, Male Fall Risk Hendrich : No Prescribed Antiepileptics Hendrich : No Prescribed Benzodiazepines Hendrich : Yes Rising From Chair Fall Risk Hendrich : Unable to rise without assistance Fall Risk Score Hendrich II : 5 MOHAN SAAVEDRA RN - 06/26/2015 12:09 HYDRAULIC SPECIALIST Safe Patient Handling Safe Pt Handling Independent : No Safe Pt Handling Supervision/Minimal Assistance : Yes - Unmotorized Equipment Safe Pt Handling Equipment Rec : No Equipment Needed MOHAN SAAVEDRA RN - 06/26/2015 12:09 HYDRAULIC SPECIALIST [facility] Document Id: [id number] HYDRAULIC SPECIALIST!105 AULIC SPECIALIST Miscellaneous - Mohan Saavedra R.N. - 06/26/2015 11:30 AM CST Adult Postprocedure Assessment Document Has Been Updated Adult Postprocedure Assessment Entered On: 06/26/2015 11:36 HYDRAULIC SPECIALIST Performed On: 06/26/2015 11:30 HYDRAULIC SPECIALIST by MOHAN SAAVEDRA RN Vital Signs Peripheral Pulse Rate : 65 /min Apical Heart Rate : 65 /min Respiratory Rate : 17 /min Systolic Blood Pressure : 141 mmHg (HI) Diastolic Blood Pressure : 58 mmHg NIBP Mean : 86 mmHg MOHAN SAAVEDRA RN - 06/26/2015 11:37 HYDRAULIC SPECIALIST SpO2 : 94 % Oxygen Therapy : Other: blow-by Height : 162.56 cm(Converted to: 5 ft 4 inch(es)) MOHAN SAAVEDRA - 06/26/2015 11:27 HYDRAULIC SPECIALIST General Level of Consciousness : Alert Orientation : Oriented x 3 Skin Color : Normal for ethnicity Skin Description : Dry Skin Temperature : Warm Pain Symptoms : Yes MOHAN SAAVEDRA - 06/26/2015 11:27 HYDRAULIC SPECIALIST Pain Scale Pain Scale Verbal 0-10 : Open MOHAN SAAVEDRA - 06/26/2015 11:27 HYDRAULIC SPECIALIST Pain Pain Assessment Grid Pain 1 Location : Shoulder Intensity : 5 Comment : says it is not as bad burning cold sensation MOHAN SAAVEDRA - 06/26/2015 11:27 HYDRAULIC SPECIALIST Cardiovascular Heart Rhythm : Regular Nail Bed Color : [place] Capillary Refill : Less than 2 seconds Antiembolism Device : Sequential Compression Device Antiembolism Device Laterality : Bilateral MOHAN SAAVEDRA [facility] 06/26/2015 11:27 HYDRAULIC SPECIALIST Respiratory Respiratory Patient Stated Symptoms : None Respirations : Unlabored (Comment: says chest does not feel so heavy as it did when she first came back - [MOHAN SAAVEDRA [facility] - 06/26/2015 11:27 HYDRAULIC SPECIALIST] ) Distress : None Respiratory Pattern : Regular All Lobes Breath Sounds : Clear Cough and Deep Breathe : Done Cough : None MOHAN SAAVEDRA - 06/26/2015 11:27 HYDRAULIC SPECIALIST GI/ Nausea Symptoms : Yes (Comment: same [MOHAN SAAVEDRA - 06/26/2015 11:27 HYDRAULIC SPECIALIST] ) MOHAN SAAVEDAR - 06/26/2015 11:27 HYDRAULIC SPECIALIST Integumentary Skin Color : Normal for ethnicity Skin Description : Dry Skin Temperature : Warm MOHAN SAAVEDRA - 06/26/2015 11:27 HYDRAULIC SPECIALIST Incision/Wound Incision/Wound Care Grid Activity : Assessed Type : Surgical acute Location : Shoulder Laterality : Left Description : Other: no change MOHAN SAAVEDRA Sharron - 06/26/2015 11:27 HYDRAULIC SPECIALIST Peripheral IV Peripheral IV Assess/Intervention Grid Peripheral IV #1 IV Activity : Assessment Number of Attempts : 1 Date of Insertion : 06/26/2015 HYDRAULIC SPECIALIST IV Site : Hand Laterality : Right Catheter Size : 18 Catheter Type : Protective Infiltration Score : 0 Phlebitis Score : 0 Flow/ Patency : No complications MOHAN SAAVEDRA - 06/26/2015 11:27 HYDRAULIC SPECIALIST Neurologic Swallowing Difficulty/Aspiration Risk : None Extremity Movement : Unequal Facial Symmetry : Symmetric Characteristics of Speech : Appropriate for age MOHAN SAAVEDRA - 06/26/2015 11:27 HYDRAULIC SPECIALIST Upper Extremity Nail Bed Color Hands Grid Left Hand : [place] Right Hand : [place] MOHAN SAAVEDRA - 06/26/2015 11:27 HYDRAULIC SPECIALIST Capillary Refill Hand Grid Left Hand : < 2 seconds Right Hand : < 2 seconds MOHAN SAAVEDRA [facility] 06/26/2015 11:27 HYDRAULIC SPECIALIST Upper Extremity Color Grid Left : [place] Right : [place] MOHAN SAAVEDRA - 06/26/2015 11:27 HYDRAULIC SPECIALIST Upper Extremity Temperature Grid Left : Warm Right : Warm MOHAN SAAVEDRA [facility] 06/26/2015 11:27 HYDRAULIC SPECIALIST [place] Upper Extremity Pulses Grid Radial Pulse, Left : 2+ Normal Radial Pulse, Right : 2+ Normal MOHAN SAAVEDRA - 06/26/2015 11:27 HYDRAULIC SPECIALIST NV Upper Extremity Sensation Grid Dorsal Web Space Thumb/Index Finger Left : Absent Dorsal Web Space Thumb/Index Finger Right : Intact Distal Fat Pad/Small Finger Left : Absent Distal Fat Pad/Small Finger Right : Intact Distal Fat Pad/Index Finger Left : Absent Distal Fat Pad/Index Finger Right : Intact MOHAN SAAVEDRA [facility] 06/26/2015 11:27 HYDRAULIC SPECIALIST Activity Patient Position : Elevate head of bed 30 degrees MOHAN SAAVEDRA - 06/26/2015 11:27 HYDRAULIC SPECIALIST PARSAP Activity Status : Moves 2 extremities voluntarily or on command Dressing : Wet but marked and not increasing Respiratory Component : Able to deep breathe and cough freely Pain : Pain mild, handled by oral medication Circulation Component : BP 20% of preanesthetic level Consciousness : Fully awake Fasting and Feeding : Able to drink fluids (Comment: has taken ice chips successfully [MOHAN SAAVEDRA - 06/26/2015 11:27 HYDRAULIC SPECIALIST] ) Oxygen Saturation - Sedation : Needs oxygen to maintain greater than 90% Urine Output, PARSAP : Not assessed MOHAN SAAVEDRA - 06/26/2015 11:27 HYDRAULIC SPECIALIST Valdovinos Valdovinos Agitation Sedation Scale (RASS) : Alert and calm (Comment: resting with eyes closed [MOHAN SAAVEDRA - 06/26/2015 11:27 HYDRAULIC SPECIALIST] ) RASS Score : 0 MOHAN SAAVEDRA [facility] 06/26/2015 11:27 HYDRAULIC SPECIALIST Chris Sensory Perception Chris : Slightly limited Moisture Chris : Rarely moist Activity Chris : Bedfast Mobility Chris : Slightly limited Nutrition Chris : Adequate Friction and Shear Chris : No apparent problem Chris Score : 17 MOHAN SAAVEDRA RN - 06/26/2015 11:27 HYDRAULIC SPECIALIST Hendrich II Fall Risk Confusion/Disorientation Hendrich : No Depression Fall Risk Hendrich : No Altered Elimination Fall Risk Hendrich : No Dizziness/Vertigo Fall Risk Hendrich : No Gender, Male Fall Risk Hendrich : No Prescribed Antiepileptics Hendrich : No Prescribed Benzodiazepines Hendrich : Yes Rising From Chair Fall Risk Hendrich : Unable to rise without assistance Fall Risk Score Hendrich II : 5 MOHAN SAAVEDRA RN - 06/26/2015 11:27 HYDRAULIC SPECIALIST Safe Patient Handling Safe Pt Handling Independent : No Safe Pt Handling Supervision/Minimal Assistance : Yes - Unmotorized Equipment Safe Pt Handling Equipment Rec : Unmotorized Equipment MOHAN SAAVEDRA RN - 06/26/2015 11:27 HYDRAULIC SPECIALIST Source: [employer] Document Id: [id number] HYDRAULIC SPECIALIST!8 AULIC SPECIALIST Miscellaneous - Mohan Saavedra R.N. - 06/26/2015 11:00 AM CST Adult Postprocedure Assessment Adult Postprocedure Assessment Entered On: 06/26/2015 10:58 HYDRAULIC SPECIALIST Performed On: 06/26/2015 11:00 HYDRAULIC SPECIALIST by MOHAN SAAVEDRA RN Vital Signs Oxygen Flow Rate : 8 L/min MOHAN SAAVEDRA RN - 06/26/2015 13:56 HYDRAULIC SPECIALIST Temperature Core : 35.6 DegC(Converted to: 96.1 DegF) (LOW) Peripheral Pulse Rate : 78 /min Apical Heart Rate : 78 /min Respiratory Rate : 17 /min Systolic Blood Pressure : 150 mmHg (HI) Diastolic Blood Pressure : 68 mmHg NIBP Mean : 95 mmHg SpO2 : 97 % Oxygen Saturation Monitoring Frequency : Continuous Oxygen Therapy : Other: blow-by MOHAN SAAVEDRA RN - 06/26/2015 11:02 HYDRAULIC SPECIALIST Height : 162.56 cm(Converted to: 5 ft 4 inch(es)) MOHAN SAAVEDRA RN - 06/26/2015 10:56 HYDRAULIC SPECIALIST General Level of Consciousness : Alert Orientation : Oriented x 3 Skin Color : Normal for ethnicity Skin Description : Dry Skin Temperature : Warm Pain Symptoms : Yes MOHAN SAAVEDRA RN - 06/26/2015 11:02 HYDRAULIC SPECIALIST Pain Scale Pain Scale Verbal 0-10 : Open MOHAN SAAVEDRA - 06/26/2015 11:02 HYDRAULIC SPECIALIST Pain Pain Assessment Grid Pain 1 Location : Shoulder Intensity : 5 Comment : removing ice bag decreased pain discomfort MOHAN SAAVEDRA - 06/26/2015 11:02 HYDRAULIC SPECIALIST Cardiovascular Heart Rhythm : Regular Nail Bed Color : [place] Capillary Refill : Less than 2 seconds Antiembolism Device : Sequential Compression Device Antiembolism Device Laterality : Bilateral DOMINICKMOHAN Sharron - 06/26/2015 11:02 HYDRAULIC SPECIALIST Respiratory Respiratory Patient Stated Symptoms : None Respirations : Unlabored Distress : None Respiratory Pattern : Regular All Lobes Breath Sounds : Clear Cough and Deep Breathe : Done Cough : None MOHAN SAAVEDRA - 06/26/2015 11:02 HYDRAULIC SPECIALIST GI/ Nausea Symptoms : Yes (Comment: says it comes and goes [DOMINICK MOHAN Sharron - 06/26/2015 11:02 HYDRAULIC SPECIALIST] ) MOHAN SAAVEDRA - 06/26/2015 11:02 HYDRAULIC SPECIALIST Integumentary Skin Color : Normal for ethnicity Skin Description : Dry Skin Temperature : Warm MOHAN SAAVEDRA Sharron - 06/26/2015 11:02 HYDRAULIC SPECIALIST Incision/Wound Incision/Wound Care Grid Activity : Assessed Type : Surgical acute Location : Shoulder Laterality : Left Description : Other: no changes DOMINICKMOHAN Sharron - 06/26/2015 11:02 HYDRAULIC SPECIALIST Peripheral IV Peripheral IV Assess/Intervention Grid Peripheral IV #1 IV Activity : Assessment Number of Attempts : 1 Date of Insertion : 06/26/2015 HYDRAULIC SPECIALIST IV Site : Hand Laterality : Right Catheter Size : 18 Catheter Type : Protective Infiltration Score : 0 Phlebitis Score : 0 Flow/ Patency : No complications MOHAN SAAVEDRA - 06/26/2015 11:02 HYDRAULIC SPECIALIST I&O Other Intake : 200 mL (Comment: I.V. fluids [MOHAN SAAVEDRA - 06/26/2015 11:02 HYDRAULIC SPECIALIST] ) MOHAN SAAVEDRA - 06/26/2015 11:02 HYDRAULIC SPECIALIST Neurologic Swallowing Difficulty/Aspiration Risk : None Extremity Movement : Unequal Facial Symmetry : Symmetric Characteristics of Speech : Appropriate for age DOMINICK MOHAN Sharron - 06/26/2015 11:02 HYDRAULIC SPECIALIST Upper Extremity Nail Bed Color Hands Grid Left Hand : [place] Right Hand : [place] MOHAN SAAVEDRA - 06/26/2015 11:02 HYDRAULIC SPECIALIST Capillary Refill Hand Grid Left Hand : < 2 seconds Right Hand : < 2 seconds MOHAN SAAVEDRA [facility] 06/26/2015 11:02 HYDRAULIC SPECIALIST Upper Extremity Color Grid Left : [place] Right : [place] MOHAN SAAVEDRA - 06/26/2015 11:02 HYDRAULIC SPECIALIST Upper Extremity Temperature Grid Left : Warm Right : Warm MOHAN SAAVEDRA [facility] 06/26/2015 11:02 HYDRAULIC SPECIALIST NV Upper Extremity Pulses Grid Radial Pulse, Left : 2+ Normal Radial Pulse, Right : 2+ Normal MOHAN SAAVEDRA - 06/26/2015 11:02 HYDRAULIC SPECIALIST NV Upper Extremity Sensation Grid Dorsal Web Space Thumb/Index Finger Left : Absent Dorsal Web Space Thumb/Index Finger Right : Intact Distal Fat Pad/Small Finger Left : Absent Distal Fat Pad/Small Finger Right : Intact Distal Fat Pad/Index Finger Left : Absent Distal Fat Pad/Index Finger Right : Intact MOHAN SAAVEDRA [facility] 06/26/2015 11:02 HYDRAULIC SPECIALIST Activity Patient Position : Elevate head of bed 30 degrees MOHAN SAAVEDRA [facility] 06/26/2015 11:02 HYDRAULIC SPECIALIST PARSAP Activity Status : Moves 2 extremities voluntarily or on command Dressing : Wet but marked and not increasing (Comment: no change [MOHAN SAAVEDRA [facility] 06/26/2015 11:02 HYDRAULIC SPECIALIST] ) Respiratory Component : Able to deep breathe and cough freely (Comment: says it is feeling easier to breathe [DOMINICKMOHAN - 06/26/2015 11:02 HYDRAULIC SPECIALIST] ) Pain : Pain mild, handled by oral medication (Comment: does not want anything for pain that would affect breathing [DOMINICK MOHAN Mcdermott - 06/26/2015 11:02 HYDRAULIC SPECIALIST] ) Circulation Component : BP 20% of preanesthetic level Consciousness : Fully awake Fasting and Feeding : Nauseated (Comment: nausea comes and goes - taking ice chips [MOHAN SAAVEDRA [facility] 06/26/2015 11:02 HYDRAULIC SPECIALIST] ) Oxygen Saturation - Sedation : Can maintain > 92% on room air Urine Output, PARSAP : Not assessed MOHAN SAAVEDRA - 06/26/2015 11:02 HYDRAULIC SPECIALIST Valdovinos Valdovinos Agitation Sedation Scale (RASS) : Alert and calm (Comment: resting with eyes closed - appears relaxed [DOMINICK MOHAN Sharron [facility] 06/26/2015 11:02 HYDRAULIC SPECIALIST] ) RASS Score : 0 DOMINICKMOHAN Sharron RN - 06/26/2015 11:02 HYDRAULIC SPECIALIST Chris Sensory Perception Chris : Slightly limited Moisture Chris : Rarely moist Activity Chris : Bedfast Mobility Chris : Slightly limited Nutrition Chris : Adequate Friction and Shear Chris : Potential problem Chris Score : 16 MOHAN SAAVEDRA RN - 06/26/2015 11:02 HYDRAULIC SPECIALIST Hendrich II Fall Risk Confusion/Disorientation Hendrich : No Depression Fall Risk Hendrich : No Altered Elimination Fall Risk Hendrich : No Dizziness/Vertigo Fall Risk Hendrich : No Gender, Male Fall Risk Hendrich : No Prescribed Antiepileptics Hendrich : No Prescribed Benzodiazepines Hendrich : Yes Rising From Chair Fall Risk Hendrich : Unable to rise without assistance Fall Risk Score Hendrich II : 5 MOHAN SAAVEDRA RN - 06/26/2015 11:02 HYDRAULIC SPECIALIST Safe Patient Handling Safe Pt Handling Independent : No Safe Pt Handling Supervision/Minimal Assistance : Yes - Unmotorized Equipment Safe Pt Handling Equipment Rec : Unmotorized Equipment MOHAN SAAVEDRA RN - 06/26/2015 11:02 HYDRAULIC SPECIALIST Source: [employer] Document Id: [id number] HYDRAULIC SPECIALIST!3 AULIC SPECIALIST Miscellaneous - Mohan Saavedra RJudithNJudith - 06/26/2015 10:20 AM CST Adult Postprocedure Assessment Document Has Been Updated Adult Postprocedure Assessment Entered On: 06/26/2015 10:32 HYDRAULIC SPECIALIST Performed On: 06/26/2015 10:20 HYDRAULIC SPECIALIST by MOHAN SAAVEDRA RN Vital Signs Oxygen Flow Rate : 8 L/min MOHAN SAAVEDRA RN - 06/26/2015 13:56 HYDRAULIC SPECIALIST Temperature Core : 35.8 DegC(Converted to: 96.4 DegF) (LOW) Peripheral Pulse Rate : 66 /min Respiratory Rate : 17 /min Systolic Blood Pressure : 152 mmHg (HI) Diastolic Blood Pressure : 66 mmHg NIBP Mean : 95 mmHg SpO2 : 97 % Oxygen Saturation Monitoring Frequency : Continuous Oxygen Therapy : Other: blow-by Height : 162.56 cm(Converted to: 5 ft 4 inch(es)) MOHAN SAAVEDRA RN - 06/26/2015 10:24 HYDRAULIC SPECIALIST General Level of Consciousness : Alert Orientation : Oriented x 3 Skin Color : Normal for ethnicity Skin Description : Dry Skin Temperature : Warm Pain Symptoms : Yes MOHAN SAAVEDRA [facility] 06/26/2015 10:24 HYDRAULIC SPECIALIST Pain Scale Pain Scale Verbal 0-10 : Open MOHAN SAAVEDRA 06/26/2015 10:24 HYDRAULIC SPECIALIST Pain Pain Assessment Grid Pain 1 Location : Shoulder Laterality : Left Intensity : 7 Comment : sharp pain in shoulder right on the top MOHAN SAAVEDRA 06/26/2015 10:24 HYDRAULIC SPECIALIST (Comment: states pain is on top of the skin not in the shoulder - feels burning- like and cold [MOHAN SAAVEDRA 06/26/2015 10:50 HYDRAULIC SPECIALIST] ) Cardiovascular Heart Rhythm : Regular Nail Bed Color : [place] Capillary Refill : Less than 2 seconds Antiembolism Device : Sequential Compression Device Antiembolism Device Laterality : Bilateral MOHAN SAAVEDRA 06/26/2015 10:24 HYDRAULIC SPECIALIST Respiratory Respiratory Patient Stated Symptoms : None Respirations : Unlabored Distress : None Respiratory Pattern : Regular All Lobes Breath Sounds : Clear Cough and Deep Breathe : Done Cough : None MOHAN SAAVEDRA 06/26/2015 10:24 HYDRAULIC SPECIALIST GI/ Nausea Symptoms : Yes (Comment: a llittle [MOHAN SAAVEDRA 06/26/2015 10:43 HYDRAULIC SPECIALIST] ) MOHAN SAAVEDRA 06/26/2015 10:24 HYDRAULIC SPECIALIST Integumentary Integumentary Patient Stated Symptoms : None Skin Turgor : Elastic Mucous Membrane Color : [place] Mucous Membrane Description : Moist Skin Color : Normal for ethnicity Skin Description : Dry Skin Temperature : Warm MOAHN SAAVEDRA 06/26/2015 10:24 HYDRAULIC SPECIALIST Incision/Wound Incision/Wound Care Grid Activity : Assessed, Dressing intact Type : Surgical acute Location : Shoulder Laterality : Left Description : Other: dressing marked - not wet through Color : Red, [place] MOHAN SAAVEDRA 06/26/2015 10:24 HYDRAULIC SPECIALIST Peripheral IV Peripheral IV Assess/Intervention Grid Peripheral IV #1 IV Activity : Assessment Number of Attempts : 1 Date of Insertion : 06/26/2015 HYDRAULIC SPECIALIST IV Site : Hand Laterality : Right Catheter Size : 18 Catheter Type : Protective Site Condition : No complications Drainage Description : None Infiltration Score : 0 Phlebitis Score : 0 Flow/ Patency : No complications MOHAN SAAVEDRA 06/26/2015 10:24 HYDRAULIC SPECIALIST Neurologic Swallowing Difficulty/Aspiration Risk : None Extremity Movement : Unequal Facial Symmetry : Symmetric Characteristics of Speech : Clear MOHAN SAAVEDRA 06/26/2015 10:43 HYDRAULIC SPECIALIST Upper Extremity Nail Bed Color Hands Grid Left Hand : [place] Right Hand : [place] MOHAN SAAVEDRA 06/26/2015 10:43 HYDRAULIC SPECIALIST Capillary Refill Hand Grid Left Hand : < 2 seconds Right Hand : < 2 seconds MOHAN SAAVEDRA 06/26/2015 10:43 HYDRAULIC SPECIALIST Upper Extremity Color Grid Left : [place] Right : [place] MOHAN SAAVEDRA 06/26/2015 10:43 HYDRAULIC SPECIALIST Upper Extremity Temperature Grid Left : Warm Right : Warm MOHAN SAAVEDRA 06/26/2015 10:43 HYDRAULIC SPECIALIST [place] Upper Extremity Pulses Grid Radial Pulse, Left : 2+ Normal Radial Pulse, Right : 2+ Normal MOHAN SAAVEDRA 06/26/2015 10:43 HYDRAULIC SPECIALIST NV Upper Extremity Sensation Grid Dorsal Web Space Thumb/Index Finger Left : Absent Dorsal Web Space Thumb/Index Finger Right : Intact Distal Fat Pad/Small Finger Left : Absent Distal Fat Pad/Small Finger Right : Intact Distal Fat Pad/Index Finger Left : Absent Distal Fat Pad/Index Finger Right : Intact MOHAN SAAVEDRA 06/26/2015 10:43 HYDRAULIC SPECIALIST Activity Patient Position : Elevate head of bed 30 degrees MOHAN SAAVEDRA 06/26/2015 10:43 HYDRAULIC SPECIALIST Modified Arin Activity : Moves 2 extremities voluntarily or on command Respiratory : Able to deep breathe and cough freely Circulation : BP +/- 20% of preprocedural level or not unusually high or low Consciousness : Fully awake O2 Saturation : Needs oxygen to maintain > 92% (Comment: blow-by [MOHAN SAAVEDRA 06/26/2015 10:43 HYDRAULIC SPECIALIST] ) Arin l Score : 8 MOHAN SAAVEDRA 06/26/2015 10:43 HYDRAULIC SPECIALIST Valdovinos Valdovinos Agitation Sedation Scale (RASS) : Restless RASS Score : 1 MOHAN SAAVEDRA 06/26/2015 10:43 HYDRAULIC SPECIALIST Chris Sensory Perception Chris : Slightly limited Moisture Chris : Rarely moist Activity Chris : Bedfast Mobility Chris : Very limited Nutrition Chris : Adequate Friction and Shear Chris : Potential problem Chris Score : 15 MOHAN SAAVEDRA 06/26/2015 10:43 HYDRAULIC SPECIALIST Hendrich II Fall Risk Confusion/Disorientation Hendrich : No Depression Fall Risk Hendrich : No Altered Elimination Fall Risk Hendrich : No Dizziness/Vertigo Fall Risk Hendrich : No Gender, Male Fall Risk Hendrich : No Prescribed Antiepileptics Hendrich : No Prescribed Benzodiazepines Hendrich : Yes Rising From Chair Fall Risk Hendrich : Unable to rise without assistance Fall Risk Score Hendrich II : 5 MOHAN SAAVEDRA RN - 06/26/2015 10:43 HYDRAULIC SPECIALIST Safe Patient Handling Safe Pt Handling Independent : No Safe Pt Handling Supervision/Minimal Assistance : Yes - Unmotorized Equipment Safe Pt Handling Equipment Rec : Unmotorized Equipment MOHAN SAAVEDRA RN - 06/26/2015 10:43 HYDRAULIC SPECIALIST [facility] Document Id: [id number] HYDRAULIC SPECIALIST!3 AULIC SPECIALIST Miscellaneous - Jean-Pierre Vasquez RTang - 06/26/2015 10:04 AM CST Adult Postprocedure Assessment Adult Postprocedure Assessment Entered On: 06/26/2015 10:17 HYDRAULIC SPECIALIST Performed On: 06/26/2015 10:04 HYDRAULIC SPECIALIST by JEAN-PIERRE VASQUEZ RN Vital Signs Temperature Core : 35.7 DegC(Converted to: 96.3 DegF) (LOW) Apical Heart Rate : 89 /min Respiratory Rate : 19 /min Systolic Blood Pressure : 129 mmHg Diastolic Blood Pressure : 72 mmHg NIBP Mean : 91 mmHg BP Location : Right upper extremity SpO2 : 100 % Oxygen Saturation Monitoring Frequency : Continuous Oxygen Flow Rate : 9 L/min Oxygen Therapy : Simple mask Height : 162.56 cm(Converted to: 5 ft 4 inch(es)) JEAN-PIERRE VASQUEZ RN - 06/26/2015 10:04 HYDRAULIC SPECIALIST General Level of Consciousness : Drowsy Skin Color : Normal for ethnicity Skin Description : Dry Skin Temperature : Cool Pain Symptoms : No JEAN-PIERRE VASQUEZ RN - 06/26/2015 10:04 HYDRAULIC SPECIALIST Cardiovascular Heart Rhythm : Regular Nail Bed Color : [place] Edema Assessment : No Capillary Refill : Less than 2 seconds JEAN-PIERRE VASQUEZ RN - 06/26/2015 10:04 HYDRAULIC SPECIALIST Radial Pulse, Right : 2+ Normal JEAN-PIERRE VASQUEZ RN - 06/26/2015 10:04 HYDRAULIC SPECIALIST Antiembolism Device : Sequential Compression Device Antiembolism Device Laterality : Bilateral Antiembolism Device Removal Reason : Activity JEAN-PIERRE VASQUEZ RN - 06/26/2015 10:04 HYDRAULIC SPECIALIST Cardiac Rhythm Techs Monitoring Lead : II Atrial Rate : 89 bpm Atrial Rhythm : Regular Ventricular Rate : 89 bpm Ventricular Rhythm : Regular MD Consistency : Consistent QRS Consistency : Consistent Ectopy Frequency : None Cardiac Rhythm : Sinus rhythm JEAN-PIERRE VASQUEZ RN - 06/26/2015 10:04 HYDRAULIC SPECIALIST Respiratory Respiratory Patient Stated Symptoms : None JEAN-PIERRE VASQUEZ RN - 06/26/2015 10:04 HYDRAULIC SPECIALIST GI/ Nausea Symptoms : No Bowel Sounds All Quadrants : Present JEAN-PIERRE VASQUEZ RN - 06/26/2015 10:04 HYDRAULIC SPECIALIST Integumentary Integumentary Patient Stated Symptoms : None Skin Turgor : Elastic Skin Integrity : Not intact Mucous Membrane Color : [place] Mucous Membrane Description : Moist Skin Color : Normal for ethnicity Skin Description : Dry Skin Temperature : Cold JEAN-PIERRE VASQUEZ RN - 06/26/2015 10:04 HYDRAULIC SPECIALIST Incision/Wound Incision/Wound Care Grid Activity : Assessed Type : Surgical acute Location : Shoulder Laterality : Left JEAN-PIERRE VASQUEZ RN - 06/26/2015 10:04 HYDRAULIC SPECIALIST Peripheral IV Peripheral IV Assess/Intervention Grid Peripheral IV #1 IV Activity : Start, Assessment Number of Attempts : 1 Date of Insertion : 06/26/2015 HYDRAULIC SPECIALIST IV Site : Hand Laterality : Right Catheter Size : 18 Catheter Type : Protective JEAN-PIERRE VASQUEZ RN - 06/26/2015 10:04 HYDRAULIC SPECIALIST I&O Other Intake : 1,800 mL Estimated Blood Loss : 100 mL JEAN-PIERRE VASQUEZ RN - 06/26/2015 10:04 HYDRAULIC SPECIALIST Neurologic Swallowing Difficulty/Aspiration Risk : None Extremity Movement : Equal Characteristics of Speech : Clear JEAN-PIERRE VASQUEZ RN - 06/26/2015 10:04 HYDRAULIC SPECIALIST Upper Extremity Nail Bed Color Hands Grid Left Hand : [place] Right Hand : [place] JEAN-PIERRE VASQUEZ RN - 06/26/2015 10:04 HYDRAULIC SPECIALIST Capillary Refill Hand Grid Left Hand : < 2 seconds Right Hand : < 2 seconds JEAN-PIERRE VASQUEZ RN - 06/26/2015 10:04 HYDRAULIC SPECIALIST Upper Extremity Color Grid Left : [place] Right : [place] JEAN-PIERRE VASQUEZ RN - 06/26/2015 10:04 HYDRAULIC SPECIALIST Upper Extremity Temperature Grid Left : Warm Right : Warm JEAN-PIERRE VASQUEZ RN - 06/26/2015 10:04 HYDRAULIC SPECIALIST NV Upper Extremity Pulses Grid Radial Pulse, Left : 2+ Normal Radial Pulse, Right : 2+ Normal JEAN-PIERRE VASQUEZ RN - 06/26/2015 10:04 HYDRAULIC SPECIALIST NV Upper Extremity Sensation Grid Dorsal Web Space Thumb/Index Finger Left : Absent Dorsal Web Space Thumb/Index Finger Right : Intact Distal Fat Pad/Small Finger Left : Absent Distal Fat Pad/Small Finger Right : Intact Distal Fat Pad/Index Finger Left : Absent Distal Fat Pad/Index Finger Right : Intact JEAN-PIERRE VASQUEZ RN - 06/26/2015 10:04 HYDRAULIC SPECIALIST Activity Patient Position : Elevate head of bed 30 degrees JEAN-PIERRE VASQUEZ RN - 06/26/2015 10:04 HYDRAULIC SPECIALIST Modified Arin Activity : Moves 2 extremities voluntarily or on command Respiratory : Able to deep breathe and cough freely Circulation : BP +/- 20% of preprocedural level or not unusually high or low Consciousness : Arouses on calling O2 Saturation : O2 SAT at preprocedural level Arin l Score : 8 JEAN-PIERRE VASQUEZ RN - 06/26/2015 10:04 HYDRAULIC SPECIALIST PARSAP Activity Status : Moves 2 extremities voluntarily or on command Dressing : Dry and clean Respiratory Component : Dyspnea, limited breathing, or tachypnea Pain : Pain free Circulation Component : BP 20% of preanesthetic level Consciousness : Arouses on calling Oxygen Saturation - Sedation : Can maintain > 92% on room air JEAN-PIERRE VASQUEZ RN - 06/26/2015 10:04 HYDRAULIC SPECIALIST Valdovinos Valdovinos Agitation Sedation Scale (RASS) : Drowsy RASS Score : -1 JEAN-PIERRE VASQUEZ RN - 06/26/2015 10:04 HYDRAULIC SPECIALIST Chris Sensory Perception Chris : Slightly limited Moisture Chris : Rarely moist Activity Chris : Walks frequently Mobility Chris : No limitations Nutrition Chris : Excellent Friction and Shear Chris : No apparent problem Chris Score : 22 JEAN-PIERRE VASQUEZ RN - 06/26/2015 10:04 HYDRAULIC SPECIALIST Hendrich II Fall Risk Confusion/Disorientation Hendrich : No Depression Fall Risk Hendrich : No Altered Elimination Fall Risk Hendrich : No Dizziness/Vertigo Fall Risk Hendrich : No Gender, Male Fall Risk Hendrich : No Prescribed Antiepileptics Hendrich : No Prescribed Benzodiazepines Hendrich : Yes Rising From Chair Fall Risk Hendrich : Unable to rise without assistance Fall Risk Score Hendrich II : 5 JEAN-PIERRE VASQUEZ RN - 06/26/2015 10:04 HYDRAULIC SPECIALIST Safe Patient Handling Safe Pt Handling Independent : Yes - No equipment needed Safe Pt Handling Equipment Rec : Lateral Transfers Only JEAN-PIERRE VASQUEZ RN - 06/26/2015 10:04 HYDRAULIC SPECIALIST Source: [employer] Document Id: [id number] HYDRAULIC SPECIALIST!142 AULIC SPECIALIST Miscellaneous - Gerber Pfeiffer R.N. - 06/26/2015 7:31 AM CST Height/Length Height/Length Entered On: 06/26/2015 7:31 HYDRAULIC SPECIALIST Performed On: 06/26/2015 7:31 HYDRAULIC SPECIALIST by GERBER PFEIFFER RN Height/Length Height : 162.56 cm GERBER PFEIFFER RN - 06/26/2015 7:31 HYDRAULIC SPECIALIST [facility] Document Id: [id number] HYDRAULIC SPECIALIST!3 AULIC SPECIALIST Miscellaneous - Jesus Mandujano APRN [employer] - 06/10/2015 12:31 PM CDT Addendum by GERBER PFEIFFER RN on 11 June 2015 11:01:56 CDT From: GERBER PFEIFFER RN To: JESUS MANDUJANO APRN [employer]; Sent: 06/11/2015 11:01:56 CDT Subject: RE: Jesus, Called to the clinic and she is there now. I asked if they could please include these in there assessment and provided our fax again. Gerber Addendum by JESUS MANDUJANO APRN, CRNA on 11 June 2015 10:13:30 CDT From: JESUS MANDUJANO APRN [employer] O[employer]ATOR To: GERBER PFEIFFER RN; Sent: 06/11/2015 10:13:30 CDT Subject: RE: Thanks Gerber, I hope they know to do labs (chem-8 and CBC), EKG, and ADEN checks or we may have to have her come inhere for those prior to the surgical date. Jesus Addendum by GERBER PFEIFFER RN on 11 June 2015 08:05:49 CDT From: GERBER PFEIFFER RN To: JESUS MANDUJANO APRN [employer]; Cc: JEAN-PIERRE VASQUEZ RN; Sent: 06/11/2015 08:05:49 CDT Subject: RE: JesusHeather is having her pre op done today with Dr. Barrie Parra at [facility]. I gave her our fax number to make sure they have the information to fax once the note has been dictated. Gerber From: JESUS MANDUJANO APRN [employer] OPERATOR To: GERBER PFEIFFER RN; Cc: JEAN-PIERRE VASQUEZ RN; Sent: 06/10/2015 12:31:53 CDT Bill Bains, We need to know about Heather's H&P. Where, when and if she had it, we need a copy. Jesus Collins Source: [facility] POWERCHART Document Id: [id number] Electronically signed by Tara [facility] [employer] Inspector [id number] at 01/09/2017 6:29 AM CDT Miscellaneous - Kaye Posada, RJudithN. - 06/02/2015 4:39 PM CDT *General Message From: KAYE POSADA RN ([place] Specialty Nurse) To: JEAN-PIERRE VASQUEZ RN; Sent: 06/02/2015 16:39:11 CDT Subject: *General Message [facility] Surgery Clinic Checklist Patient Contact Number: _ Surgeon: _ MICHELLE Surgical Service: (X) Orthopedics (_) General surgery (_) Ophthalmology (_) Podiatry (_) ENT (_) Urology (_) OB / Gynecology (_) Other Date of Surgery: _06/26/15 Place of Surgery: _[facility] Pre-Admit FIN: _ Procedure (as written on Consent): _LEFT SHOULDER ARTHROSCOPY, SAD, DCR, BICEPS TENOTOMY, POSSIBLE MINI-OPEN ROTATOR CUFF REPAIR Right, Left, Bilateral, N/A: _ Diagnosis (reason for surgery): _ ICD-10: _ CPT:_ Work Comp: (_) No (_) Yes Surgeon Anticipated Time: _ Case Type: (_) Outpatient (_) AM Admit (_) Inpatient (_) Other Pre-op MD: _ Post-Op Appt:(time frame when to return) _ Surgery Brochure Given: (_) Yes (_) No (_) Mailed to Patient SPECIAL EQUIPMENT/SPECIAL INSTRUCTION: Special Equipment needed: _SMITH [employer] NEPHEW Rep Needed: (_) No (X) Yes Special Instructions/Prep: _ Radiology Needs: _ OT Post-op Appt Needed: (_) No (_) Yes Ortho Patients Only Metal Removal: (_) No (_) Yes X-Ray Location (if not done in [facility]): _ CPM Post-op: (_) No (_) Yes- please make sure MD places order If Total Joint Case: Type of Prosthesis: _ Additional equipment: _ Has other side been done: (_) No (_) Yes Source: [facility] POWERCHART Document Id: [id number] Electronically signed by Tara, [facility] Fretted Instruments Inspector [id number] at 01/09/2017 6:29 AM CDT documented in this encounter Plan of Treatment Not on filedocumented as of this encounter Procedures Procedure Name Priority Date/Time Associated Diagnosis Comme nts GLUCOSE POCT, B Routine 06/26/2015 7:42 AM Result s for this HYDRAULIC SPECIALIST procedure are i n the results section. documented in this encounter Results Glucose, POCT (06/26/2015 7:42 AM HYDRAULIC SPECIALIST) athologist Signature Glucose, POCT, 127 70 - 139 POWERCHART B MGDL Comment: AnalyzedBy [id number] Margarette Bains Performed [place] [facility] [address] [facility] [place] [address] [place], [place] ??[address] Specimen Anatomical Collection Method Collection Time Receive d Time (Source) Location / / Volume Laterality Blood 06/26/2015 7:42 AM 5 7:42 HYDRAULIC SPECIALIST AM HYDRAULIC SPECIALIST Uriel Renner M.D. LAB POCT ORDERABLES-MANUAL Performing Organization Address City/State/ZIP Code Phon e Number POWERCHART documented in this encounter Visit Diagnoses Not on filedocumented in this encounter
--- OUTSIDE RECORDS SUMMARY | 2022-05-10 09:50 | XMS_ITS | Encounter Summary ---
:1945 Author Organization [facility] Address [address] [place] [address] Care Team Providers Name Role Phone Unavailable Primary Care Provider Unavailable Encounter Details Date Type Department Care Team Description 02/18/2019 Orders Only Department of Candice Lynch, Sanju mcfarland Right Orthopedic Surgery in [facility] C.N.P., (Prim wilbert Dx) Boby DillonN.PJudith [address] [phone] Social History Tobacco Use Types Packs/Day Years Used Date Smoking Tobacco: Former Smokeless Tobacco: Never Alcohol Habits Answer Date Recorded How often [...] or relatives? How often do you attend congregation or Not asked baptist services? Do you belong to any clubs or Yes 04/11/2019 organizations such as congregation groups, unions, fraternal or athletic groups, or [...] on file documented as of this encounter Plan of Treatment Not on filedocumented as of this encounter Visit Diagnoses Diagnosis Pain Shoulder Right - Primary documented in this encounter
--- OUTSIDE RECORDS SUMMARY | 2022-05-10 09:50 | XMS_ITS | Encounter Summary ---
:1945 Author Organization [facility] [place] Address [address] [place] [address] Care Team Providers Name Role Phone Unavailable Primary Care Provider Unavailable Reason for Referral Outpatient (Routine) - Closed Specialty Diagnoses / Procedures Referred By Contact Refer red To Contact Orthopedic Surgery Diagnoses Pain Shoulder Right Uriel Renner, [facility] M.DJudith [address] [place] [phone] Referral ID Status Reason Start Date Expiration Date Visits Requ ested Visits Authorized [id number] Closed 05/21/2019 05/20/2020 1 1 Encounter Details Date Type Department Care Team Description 05/21/2019 Orders Only Department of Uriel Renner Pain Sho ulder Right Orthopedic Surgery in M.DJudith (Primary Dx) [place], [address] [place] [id number] [place], [place] [phone] (Work) [phone] Social History Tobacco Use Types Packs/Day Years [...] or relatives? How often do you attend pentecostalism or Not asked mormonism services? Do you belong to any clubs or Yes 04/11/2019 organizations such as pentecostalism groups, unions, fraNovian Health or athletic groups, or school groups? How [...] as of this encounter Plan of Treatment Scheduled Referrals Name Type Priority Associated Order Schedule Diagnoses Orthopedic Surgery Outpatient Referral Routine Pain Shoulder R ight Expected: Post Op (clinic) 07/02/2019 (Approximate), Expires: 05/21/2022 documented as of this encounter Results Type and Screen (with reflex Antibody ID) (06/10/2019 10:17 AM CDT) Patholo gist Method Time Signature ABO Group A 06/10/2019 CNFL 12:19 PM CDT Rh Type POS 06/10/2019 CNFL 12:19 PM CDT Antibody Screen NEG 06/11/2019 CNFL 9:55 AM CDT Type & Screen 08/08/2019 06/11/2019 CNFL Expiration 23:59 9:55 AM CDT ELXM Eligible Y 06/11/2019 CNFL 9:55 AM CDT Specimen Anatomical Collection Method Collection Time Receive d Time (Source) Location / / Volume Laterality Blood (Blood, 06/10/2019 10:17 06/10/2019 Venous) AM CDT 10:[address] [facility] - 06/11/2019 9:55 AM CDT Specimen Information: Specimen ID: [id number] Specimen Type: Blood Specimen Collection Start Date: 10:17 AM Specimen Received Date: 06/10/2019 10:1 8 AM Specimen ID: [id number] Specimen Type: Blood Specimen Collection Start Date: ??9:56 AM Specimen Received Date: 06/10/2019 ??9: 56 AM Uriel Renner M.D. LAB BLOOD BANK TEST ORDERABL ES Performing Organization Address City/State/ZIP Code Phon e Number [address] [address] [place] [address] [address] documented in this encounter Visit Diagnoses Diagnosis Pain Shoulder Right - Primary Pain Shoulder Right documented in this encounter
--- OUTSIDE RECORDS SUMMARY | 2022-05-10 09:50 | XMS_ITS | Encounter Summary ---
:1945 Author Organization [facility] Address [address] [place] [address] Care Team Providers Name Role Phone Unavailable Primary Care Provider Unavailable Encounter Details Date Type Department Care Team Description 04/05/2019 Abstract [facility] MADALYN Green Provider, Historical [address] [id number] Social History Tobacco Use Types Packs/Day Years [...] or relatives? How often do you attend mormon or Not asked sabianism services? Do you belong to any clubs or Yes 04/11/2019 organizations such as mormon groups, unions, fraternal or athletic groups, or [...] Name Priority Date/Time Associated Diagnosis Comme nts HEMOGLOBIN A1C, B Routine 03/20/2019 Results fo r this procedure are i n the results section . HEPATIC FUNCTION PANEL Routine 03/20/2019 Resul ts for this procedure are i n the results section . LIPID PANEL, S Routine 03/20/2019 Results for t his procedure are i n the results section . BASIC METABOLIC PANEL, Routine 03/20/2019 Resul ts for this S/P procedure are i n the results section . documented in this encounter Results (ABNORMAL) Hemoglobin A1c (03/20/2019) P athologist Signature Hemoglobin A1c, 6.7 (A) 4.0 - 6.0 EXTERNAL B NON-INTERFACE D LAB Specimen (Source) Anatomical Location Collection Method / Collectio n Time Received Time / Laterality Volume Blood (Blood, Venous) Ordering Provider External M.D. LAB BLOOD ADD-ON Performing Organization Address City/State/ZIP Code Phon e Number EXTERNAL NON-INTERFACED LAB [address] [place], [place] [address] Hepatic function panel (03/20/2019) Patholo gist Method Time Signature Alkaline 56 25 - 125 EXTERNAL Phosphatase, S NON-INTERFACE D LAB Alanine 29 7 - 35 EXTERNAL Amniotransferase, LD NON-INTER FACE D LAB Aspartate 29 13 - 35 EXTERNAL Aminotransferase NON-INTERFACE (AST), S D LAB Bilirubin, Total, S 0.5 0.1 - 1.4 EXTERNAL NON-INTERFACE D LAB Specimen (Source) Anatomical Location Collection Method / Collectio n Time Received Time / Laterality Volume Blood (Blood, Venous) Ordering Provider External M.D. LAB BLOOD ADD-ON Performing Organization Address [facility] Phon e Number EXTERNAL NON-INTERFACED LAB [address] [place], [place] [address] (ABNORMAL) Lipid Panel (03/20/2019) Patholo gist Method Time Signature Triglycerides 494 (A) 40 - 160 EXTERNAL NON-INTERFACE D LAB Cholesterol, Total 365 (A) 0 - 200 EXTERNAL NON-INTERFACE D LAB Cholesterol, HDL, 41 35 - 70 EXTERNAL S NON-INTERFACE D LAB LDL Cholesterol 225 EXTERNAL NON-INTERFACE D LAB Specimen (Source) Anatomical Location Collection Method / Collectio n Time Received Time / Laterality Volume Blood (Blood, Venous) Ordering Provider External M.D. LAB BLOOD NON ADD-ON Performing Organization Address [facility] Phon e Number EXTERNAL NON-INTERFACED LAB [address] [place], [place] [address] Basic Metabolic Panel (03/20/2019) P athologist Signature Glucose 168 mg/dL EXTERNAL NON-INTERFACED LAB BUN (Blood Urea 13 4 - 21 EXTERNAL Nitrogen), S NON-INTERFACED LAB Creatinine 0.7 0.5 - 1.1 EXTERNAL NON-INTERFACED LAB Potassium, S 4.5 3.4 - 5.3 EXTERNAL NON-INTERFACED LAB Sodium, S 137 137 - 147 EXTERNAL NON-INTERFACED LAB Specimen (Source) Anatomical Location Collection Method / Collectio n Time Received Time / Laterality Volume Blood (Blood, Venous) Ordering Provider External M.D. LAB BLOOD ADD-ON Performing Organization Address [facility] Phon e Number EXTERNAL NON-INTERFACED LAB [address] [place], [place] [address] documented in this encounter Visit Diagnoses Not on filedocumented in this encounter
--- OUTSIDE RECORDS SUMMARY | 2022-05-10 09:50 | XMS_ITS | Encounter Summary ---
:1945 Author Organization [facility] Address [address] [place] [address] Care Team Providers Name Role Phone Unavailable Primary Care Provider Unavailable Encounter Details Date Type Department Care Team Description 06/18/2019 - Hospital Encounter [facility] Alejandro Renner M.D. [address] [place] [address] Pain Joint (Primary 06/19/2019 Hospital, Arelis Bhatia M.D. [address] [place] [address] Dx) [facility], Second Floor [address] [place] [address] [phone] Social History Tobacco Use Types Packs/Day Years [...] or relatives? How often do you attend moravian or Not asked buddhist services? Do you belong to any clubs or Yes 04/11/2019 organizations such as moravian groups, unions, fraternal or athletic groups, or [...] Sign Reading Time Taken Comments Blood Pressure 93/78 06/19/2019 9:58 AM STEAM POWER PLANT OPERATOR Pulse 80 06/19/2019 9:58 AM STEAM POWER PLANT OPERATOR Temperature 36.4 ??C (97.5 ??F) 06/19/2019 9:58 AM STEAM POWER PLANT OPERATOR Respiratory Rate 16 06/19/2019 9:58 AM STEAM POWER PLANT OPERATOR Oxygen Saturation 98% 06/19/2019 9:58 AM STEAM POWER PLANT OPERATOR Inhaled Oxygen Concentration - - Weight 72.5 kg (159 lb 13.3 oz) 06/18/2019 11:29 AM STEAM POWER PLANT OPERATOR Height 162.6 cm (5' 4.02) 06/18/2019 11:29 AM STEAM POWER PLANT OPERATOR Body Mass Index 27.42 06/18/2019 11:29 AM STEAM POWER PLANT OPERATOR documented in this encounter Discharge Summaries Arelis Samaniego M.D. - 06/19/2019 8:38 AM CST Heather Harrell [phone] DATE OF ADMISSION: 06/18/2019 LOS: 1 day DATE OF DISCHARGE: 06/19/19 ADMITTING PROVIDER: Uriel Renner M.D. ADMITTING DIAGNOSES (All present on admission): [...] ARTHROPLASTY TOTAL REVERSE SHOULDER Uriel Renner M.D. [facility] OR DISCHARGE DIAGNOSIS: #1 Arthroplasty Total [...] DISCHARGE MEDICATIONS: Heather Harrell Home Medication Instructions BIMAL:[id number] Printed on:06/19/19 0838 Medication Information acetaminophen (TYLENOL) 500 mg tablet [...] and caregiver(s). Arelis Samaniego M.D. 06/19/20198:38 AM M POWER PLANT OPERATOR documented in this encounter Discharge Instructions Discharge Instr - [facility] Follow-UpsVinita Urbina R.N. - 06/19/2019 9:[address] García PCP appointment is on Jun 25 at 9:45am check in. [facility]patient PT in [facility] is on 06-26-19 at 2:30pm M POWER PLANT OPERATOR documented in this encounter Medications at [...] precede with surgical treatment. Uriel Renner M.D. M POWER PLANT OPERATOR Source Note - Nicolas, Default Authenticator [...] Gets together: Three times a week Attends buddhist service: Not on file Active member of [...] PPX: GI PPX:Not indicated PAIN:Oxycodone and Tylenol M POWER PLANT OPERATOR documented in this encounter Consult Notes Cher Posada O.T. - 06/19/2019 10:35 AM CST Consults Patient was able to complete TB dressing with minimal assistance to thread R UE through sleeve. Patient is able to complete toileting and ambulation with [place]. Patient's spouse will be able to assist Patient at home with ADLs as needed. Patient does not require any further skilled OT at this time. M POWER PLANT OPERATOR Latrice Sena P.T. - 06/19/2019 9:33 AM CST Physical Therapy Inpatient Evaluation/Treatment SUBJECTIVE Patient's Name: Heather Harrell Referring/Attending Provider: Arelis Samaniego M.D. Medical Diagnosis: [...] Score: 0 % Basic Mobility CMS Modifier: ERI Sena PKhadra [facility], [facility], Second Floor [address] [place] [address] [facility] [address] Dept: [phone] M POWER PLANT OPERATOR documented in this encounter Nursing Notes [...] and all questions addressed at this time. M POWER PLANT OPERATOR Arlene Todd R.N. - 06/19/2019 10:20 AM CST Shift [...] today. Outpatient Rx for rehab sent to [facility] Rehab clinic and appointment made and her [...] and tingling noted to patients R fingers. M POWER PLANT OPERATOR Yahaira Beal R.N. - 06/18/2019 1:41 PM CST Scopolamine patch removed. M POWER PLANT OPERATOR documented in this encounter OR Notes Op Note - Uriel Renner M.D. - 06/18/2019 8:35 AM CST FULL OP NOTE Procedure(s) (LRB): ARTHROPLASTY TOTAL REVERSE SHOULDER (Right) Surgeon(s) and Role: * Uriel Renner M.D. - Primary Phd Intern: Candice Lynch APRN, C.N.P., D.N.P. Anesthesia Type General with pain block Pre-operative Diagnosis Pain Shoulder Right Post-operative Diagnosis Pain Shoulder Right Full Operative Note Details PROCEDURE(S) Right reverse total shoulder arthroplasty. SURGEON(S) Uriel Renner M.D. PROBLEM MANAGER: Candice Lynch APRN, C.N.P., D.N.P. I requested [...] Implant Name Type Inv. Item Serial No. Manager Sourcing Lot No. LRB No. Used Reunion RSA center screw 6.5mm Shoulder Implant Darvin [id number] Right 1 Reunion RSA concentric glensphere Shoulder Implant Darvin [id number] Right 1 reunion rsa 4.5mm /28mm Shoulder Implant Darvin Right 1 reunion rsa screw 4.5/24mm Shoulder Implant Darvin [id number] Right 1 Reunuion screw 4.5mm/16mm Shoulder Implant Independence [id number] Right 1 reunion screw 4.5mm/24mm Shoulder Implant Independence [id number] Right 1 humeral insert 32mm Shoulder Implant Independence Right 1 reUnion modular humeral stem Shoulder Implant Independence [id number] Right 1 reunuin rsa humeral cup 32mm/4mm Shoulder Implant Independence [id number] Right 1 Intra-op Medications Date/Time Order Dose Route Action Action by 06/18/2019 0819 ceFAZolin in dextrose (iso-osm) IVPB 2 g (ANCEF) 2 g intravenous Given Truman Shay 06/18/2019 0830 tranexamic acid 1 g in NaCl 0.9% IVPB 1 g intravenous New Bag Truman Shay 06/18/2019 0940 tranexamic acid 1 g in NaCl 0.9% IVPB 1 g intravenous New Bag Truman Shay 06/18/2019 0836 bacitracin 300,000 Units in NaCl 0.9 % 3,060 mL irrigation 3,060 mL irrigation Given Mateo Renner M.D. M POWER PLANT OPERATOR Brief Op Note - Uriel Renner M.D. - 06/18/2019 8:35 AM CST BRIEF OP NOTE Procedure(s) (LRB): ARTHROPLASTY TOTAL REVERSE SHOULDER (Right) Surgeon(s) and Role: * Uriel Renner M.D. - Primary Phd Intern: Candice Lynch APRN, C.N.P., D.N.P. Anesthesia Type General with pain block Pre-operative Diagnosis Pain Shoulder Right Post-operative Diagnosis Pain Shoulder Right Brief Operative Note Details Specimens None Drains None Estimated Blood Loss 60 mL Implants Implant Name Type Inv. Item Serial No. Manager Sourcing Lot No. LRB No. Used Reunion RSA center screw 6.5mm Shoulder Implant Independence [id number] Right 1 Reunion RSA concentric glensphere Shoulder Implant Darvin [id number] Right 1 reunion rsa 4.5mm /28mm Shoulder Implant Independence Right 1 reunion rsa screw 4.5/24mm Shoulder Implant Independence [id number] Right 1 Reunuion screw 4.5mm/16mm Shoulder Implant Darvin [id number] Right 1 reunion screw 4.5mm/24mm Shoulder Implant Independence [id number] Right 1 humeral insert 32mm Shoulder Implant Darvin Right 1 reUnion modular humeral stem Shoulder Implant Darvin [id number] Right 1 reunuin rsa humeral cup 32mm/4mm Shoulder Implant Darvin [id number] Right 1 Uriel Renner M.D. M POWER PLANT OPERATOR documented in this encounter Plan of Treatment Not on filedocumented as of this encounter Procedures Procedure Name Priority Date/Time Associated Comments Diagnosis GLUCOSE POCT, B Routine 06/19/2019 7:43 AM Result s for this STEAM POWER PLANT OPERATOR procedure are i n the results section. GLUCOSE POCT, B Routine 06/18/2019 10:17 Results for this PM STEAM POWER PLANT OPERATOR procedure are i n the results section. GLUCOSE POCT, B Routine 06/18/2019 4:58 PM Result s for this STEAM POWER PLANT OPERATOR procedure are i n the results section. GLUCOSE POCT, B Routine 06/18/2019 12:24 Results for this PM STEAM POWER PLANT OPERATOR procedure are i n the results section. GLUCOSE POCT, B Routine 06/18/2019 10:04 Results for this AM STEAM POWER PLANT OPERATOR procedure are i n the results section. ARTHROPLASTY TOTAL 06/18/2019 7:54 AM Pain Shoulder Ri ght REVERSE SHOULDER STEAM POWER PLANT OPERATOR Case Notes Dentures (_) Yes (X) [...] (X) No. Comment: _Do you have any buddhist or other objection to having a blood transfusion? (_) Yes (X) NoScheduling Follow-Up:Cinder Pit Worker reques jonathan: (X) N/A (_) Yes Comment: [...] may result in case cancellation.Planning for [place] [place]: -All surgery patients must have a pre-op physical within 30 days of s peter , -Surgery brochure given or mailed to [...] for one year) and gave patient hibiclens p acket and reviewed preop showering instructions (_)Pre op PT appt (ACL repairs only ) Post op appointments:1st po with surgeon or physician medical assistant: (_) made (_)TBD ( _)PO OT appt made (Hand surgery if requested) ECG STAT 06/18/2019 7:06 AM STEAM POWER PLANT OPERATOR Resul ts for this procedure are in the results section . HEMOGLOBIN, B STAT 06/18/2019 6:42 AM STEAM POWER PLANT OPERATOR Resu lts for this procedure are in the results section . documented in this encounter Results (ABNORMAL) Glucose, POCT (06/19/2019 7:43 AM STEAM POWER PLANT OPERATOR) P athologist Signature Glucose, POCT, 186 (H) 70 - 140 06/19/2019 CNFL B mg/dL 7:43 AM STEAM POWER PLANT OPERATOR Specimen Anatomical Collection Method Collection Time Receive d Time (Source) Location / / Volume Laterality Blood 06/19/2019 7:43 AM 9 8:03 STEAM POWER PLANT OPERATOR AM STEAM POWER PLANT OPERATOR Generic [facility] POCT ORDERABLES-MANUAL Performing Organization Address City/[facility] Phon e Number [address] [address] [place] [address] (ABNORMAL) Glucose, POCT (06/18/2019 10:17 PM STEAM POWER PLANT OPERATOR) P athologist Signature Glucose, POCT, 243 (H) 70 - 140 06/18/2019 CNFL B mg/dL 10:17 PM STEAM POWER PLANT OPERATOR Specimen Anatomical Collection Method Collection Time Receive d Time (Source) Location / / Volume Laterality Blood 06/18/2019 10:17 06/18/2019 PM STEAM POWER PLANT OPERATOR 10:25 PM STEAM POWER PLANT OPERATOR Generic [facility] POCT ORDERABLES-MANUAL Performing Organization Address City/[facility] Phon e Number [address] [address] [place] [address] System in [place] [address] [address] (ABNORMAL) Glucose, POCT (06/18/2019 4:58 PM STEAM POWER PLANT OPERATOR) P athologist Signature Glucose, POCT, 214 (H) 70 - 140 06/18/2019 CNFL B mg/dL 4:58 PM STEAM POWER PLANT OPERATOR Specimen Anatomical Collection Method Collection Time Receive d Time (Source) Location / / Volume Laterality Blood 06/18/2019 4:58 PM 9 5:10 STEAM POWER PLANT OPERATOR PM STEAM POWER PLANT OPERATOR Generic [facility] POCT ORDERABLES-MANUAL Performing Organization Address City/State/ZIP Code Phon e Number [address] [address] [place] [address] [address] (ABNORMAL) Glucose, POCT (06/18/2019 12:24 PM STEAM POWER PLANT OPERATOR) P athologist Signature Glucose, POCT, 178 (H) 70 - 140 06/18/2019 CNFL B mg/dL 12:24 PM STEAM POWER PLANT OPERATOR Specimen Anatomical Collection Method Collection Time Receive d Time (Source) Location / / Volume Laterality Blood 06/18/2019 12:24 06/18/2019 PM STEAM POWER PLANT OPERATOR 12:33 PM STEAM POWER PLANT OPERATOR Generic [facility] POCT ORDERABLES-MANUAL Performing Organization Address City/[facility]/ZIP Code Phon e Number [address] [address] [place] [address] [address] (ABNORMAL) Glucose, POCT (06/18/2019 10:04 AM STEAM POWER PLANT OPERATOR) P athologist Signature Glucose, POCT, 152 (H) 70 - 140 06/18/2019 CNFL B mg/dL 10:04 AM STEAM POWER PLANT OPERATOR Specimen Anatomical Collection Method Collection Time Receive d Time (Source) Location / / Volume Laterality Blood 06/18/2019 10:04 06/18/2019 AM STEAM POWER PLANT OPERATOR 10:19 AM STEAM POWER PLANT OPERATOR Generic [facility] POCT ORDERABLES-MANUAL Performing Organization Address City/State/ZIP Code Phon e Number [address] [place] [address] [place] [address] [address] ECG 12 Lead (06/18/2019 7:06 AM STEAM POWER PLANT OPERATOR) P athologist Signature Ventricular Rate 65 BPM MUSE ECG/Min MO Interval 192 ms MUSE QRSD Interval 84 ms MUSE QT Interval 402 ms MUSE QTC Interval 418 ms MUSE P [place] -18 degrees MUSE R [place] -58 degrees MUSE T Wave [place] -3 degrees MUSE Specimen Anatomical Collection Method Collection Time Receive d Time (Source) Location / / Volume Laterality 06/18/2019 7:06 AM 9 7:18 STEAM POWER PLANT OPERATOR AM STEAM POWER PLANT OPERATOR Impressions MUSE - 06/18/2019 7:18 AM STEAM POWER PLANT OPERATOR Normal sinus rhythm Left anterior fascicular [...] MUSE MUSE NA Hemoglobin (06/18/2019 6:42 AM STEAM POWER PLANT OPERATOR) athologist Signature Hemoglobin 12.7 11.6 - 15.0 06/18/2019 CNFL g/dL 6:45 AM STEAM POWER PLANT OPERATOR Specimen Anatomical Collection Method Collection Time Receive d Time (Source) Location / / Volume Laterality Blood (Blood, 06/18/2019 6:42 AM 06/18/20 19 6:42 Venous) STEAM POWER PLANT OPERATOR AM STEAM POWER PLANT OPERATOR Wilda Armendariz M.D. LAB BLOOD ADD-ON Performing Organization Address City/State/ZIP Code Phon e Number [facility]- [address] [place] [address] [place] [address] [address] documented in this encounter Visit Diagnoses Diagnosis Arthroplasty Total Shoulder Replacement Status Post Right - Primary Pain Joint Pain Shoulder Right Diabetes Mellitus Type 2 Without Complic ation (HCC) Hyperlipidemia Hypothyroidism Insomnia documented in this encounter Admitting Diagnoses Diagnosis Pain Shoulder Right Pain Joint documented in this encounter Administered Medications Inactive Administered Medications - up to 3 most recent administrations Medication Order MAR Action Action Date Dose Rate Site acetaminophen tablet 1,000 mg Given 06/18/2019 7:05 AM STEAM POWER PLANT OPERATOR 1,000 mg (TYLENOL) 1,000 mg, oral, Once, On Mon06/18/19 at 0645, For 1 dose, Pre-Op acetaminophen tablet 500 mg (TYLENOL) Given 06/19/2019 9:57 AM STEAM POWER PLANT OPERATOR 500 mg 500 mg, oral, Every 6 hours PRN, mild pain or score 1-3 of 10, Starting on Mon06/18/19 at 1129 ceFAZolin in dextrose (iso-os) IVPB 2 New Bag 06/18/2019 9:34 PM STEAM POWER PLANT OPERATOR 2 g 200 mL/hr g (ANCEF) 2 g, intravenous, at 200 mL/hr, Administer over 30 Minutes, Every 8 hours, First dose on Mon06/18/19 at 1400, For 2 doses, Start within 8 hours of last IV dose. premix bag, Drug Monitoring Program: Pharmacist to adjust medication dosing based on indication and drug clearance factors., Indications: Prophylaxis, surgical New Bag 06/18/2019 1:13 PM STEAM POWER PLANT OPERATOR 2 g 200 mL/hr estradiol tablet 0.5 mg (ESTRACE) Given 06/19/2019 8:11 AM STEAM POWER PLANT OPERATOR 0.5 mg 0.5 mg, oral, Daily, First dose on Mon06/19/19 at 0900 fentaNYL injection 25 mcg (SUBLIMAZE) Given 06/18/2019 10:46 AM STEAM POWER PLANT OPERATOR 25 mcg 25 mcg, intravenous, Every 2 min PRN, For pain 4 or greater (maximum 100 mcg). If max dose of Fentanyl is reached and if pain is greater than 4, discontinue Fentanyl: give Hydromorphone, Starting on Mon06/18/19 at 1003, PACU (only) insulin aspart U-100 Given 06/18/2019 5:02 PM STEAM POWER PLANT OPERATOR 2 Units Right Upper Arm injection [...] 25 mcg (SYNTHROID, Given 06/19/2019 8:11 AM STEAM POWER PLANT OPERATOR 25 mcg LEVOTHROID) 25 mcg, oral, Daily, First dose on Mon06/19/19 at 0900 NaCl 0.9% infusion New Bag 06/18/2019 11:57 AM STEAM POWER PLANT OPERATOR 50 mL/hr 50 mL/hr 50 mL/hr, intravenous, Continuous, Starting on Mon06/18/19 at 1030, DC with good po ondansetron (PF) injection 4 mg (ZOFRAN) Given 06/18/2019 10:34 AM STEAM POWER PLANT OPERATOR 4 mg 4 mg, intravenous, Every [...] 5 mg (CRESTOR) Given 06/18/2019 9:27 PM STEAM POWER PLANT OPERATOR 5 mg 5 mg, oral, Daily at bedtime, First dose on Mon06/18/19 at 2100 sennosides-docusate sodium 8.6-50 mg per Given 06/19/2019 8:12 A M STEAM POWER PLANT OPERATOR 1 tablet tablet 1 tablet (SENOKOT-S) 1 tablet, oral, 2 times daily, First dose on Mon06/18/19 at 2100, Do not give if patient has diarrhea. Given 06/18/2019 9:27 PM STEAM POWER PLANT OPERATOR 1 tablet traMADol tablet 100 mg [...] Recently Administered Medications Times are shown in STEAM POWER PLANT OPERATOR. Scheduled Medication Order 06/17/2019 06/18/2019 06/19/2019 acetaminophen tablet 1,000 mg (TYLENOL) (COMPLETED) 0705 (Given - Provider: Bonny Glasgow RTang) 1,000 mg, oral, Once, On Mon06/18/19 at 0645, For 1 dose, Pre-Op ceFAZolin in dextrose (iso-os) IVPB 2 g (ANCEF) (COMPLETED) 1313 (New Bag - Provider: Jen Bermudez RJudithNJudith)2134 (New Bag - Provider: Jose Clifford RTang) 2 g, intravenous, at 200 mL/hr, Administ er over 30 Minutes, Every 8 hours, First dose on Mon06/18/19 at 1400, For 2 doses, Start within 8 hours of last IV dose. premix bag, Drug Monitoring Program: Melvin phillip to adjust medication dosing based on indication and drug clearance factors., Indications: Prophylaxis, surgical ceFAZolin in dextrose (iso-osm) IVPB 2 g (ANCEF) (COMPLETED) 08 (Given - Provider: Nikolai Shay, REINSTATEMENT CLERK, SALON RECEPTIONIST) 2 g, intravenous, at 100 mL/hr, Administ [...] Daily with breakfast, Fi rst dose on Mon06/20/19 at 0800, Swallow whole. Do NOT crush, chew, or split tablet. rosuvastatin tablet 5 mg (CRESTOR) 2126 (Given - Provider: Jose Clifford R.N.) 5 mg, oral, Daily at bedtime, First [...] (New Bag - Provider: Nikolai Shay APRN, KIRSTIN) 1 g, intravenous, at 150 mL/hr, Administ er over 20 Minutes, Once, e 06/18/19 at 0645, For 1 dose, Intra-Op, Administer in OR upon induction Mini-Bag Plus bag tranexamic acid 1 g in NaCl 0.9% IVPB (COMPLETED) 0940 (New Bag - Provider: Nikolai Shay APRN, KIRSTIN) 1 g, intravenous, at 150 mL/hr, Administ er over 20 Minutes, Once, e 06/18/19 at 0645, For 1 dose, Intra-Op, Administer in OR just before dropping tourniquet Mini-Bag Plus bag Continuous Medication Order 06/17/2019 06/18/2019 06/19/2019 lactated ringers (CANCELED) 0737 (New Ba g - Provider: Nikolai Shay APRN, KIRSTIN)1004 (Anesthesia Volume Adjustment - Provider: Nikolai Shay APRN, KIRSTIN) 20 mL/hr, intravenous, at 20 mL/hr, Cont inuous, Starting Mon06/18/19 at 0645, Pre-Op NaCl 0.9% infusion 1157 (New Bag - Prov ider: Jen Bermudez RJudithNJudith)1531 (Stopped - Provider: Jen Bermudez R.N.) 50 mL/hr, intravenous, Continuous, Start ing on Mon06/18/19 at 1030, DC with good po PRN Medication Order 06/17/2019 06/18/2019 06/19/2019 acetaminophen tablet 500 mg (TYLENOL) 0957 (Given - Provider: Arlene Todd RTang) 500 mg, oral, Every 6 hours PRN, mild pa in or score 1-3 of 10, Starting on Mon06/18/19 at 1129 bacitracin 300,000 Units in NaCl 0.9 % 3,060 mL irrigation ( CANCELED) 0836 (Given - Provider: Uriel Renner M.D.) As needed, Starting Mon06/18/19 at 0836, Intra-Op bisacodyl suppository 10 [...] (CANCELED) 1046 (Given - Provider: Yahaira Beal R.N.) 25 mcg, intravenous, Every 2 min PRN, [...]
--- OUTSIDE RECORDS SUMMARY | 2022-05-10 09:50 | XMS_ITS | Encounter Summary ---
:1945 Author Organization [facility] Address [address] [place] [address] Care Team Providers Name Role Phone Unavailable Primary Care Provider Unavailable Encounter Details Date Type Department Care Team Description 08/21/2015 Hospital Encounter HX [facility] Zabrina Sullivan M.D. [address] [phone] (Wo rk) Social History Tobacco Use Types [...] or relatives? How often do you attend confucianism or Not asked taoism services? Do you belong to any clubs or Yes 04/11/2019 organizations such as confucianism groups, unions, fraternal or athletic groups, or [...] Sign Reading Time Taken Comments Blood Pressure 130/64 08/21/2015 9:24 AM ENTRY LEVEL RECRUITER Pulse 68 08/21/2015 9:24 AM ENTRY LEVEL RECRUITER Temperature - - Respiratory Rate 18 08/21/2015 9:24 AM ENTRY LEVEL RECRUITER Oxygen Saturation - - Inhaled Oxygen Concentration - - Weight - - Height 163 cm (5' 4.17) 08/21/2015 9:24 AM ENTRY LEVEL RECRUITER Body Mass Index - - documented in this encounter Medications at Time of Discharge Medication Sig Dispensed Refills Start Date End Date aspirin 81 mg chewable Chew 81 mg daily. 0 2011 tablet aspirin-calcium carbonate Take 81 mg by mouth 0 0 10/07/2011 02/02/2021 81 mg-300 mg calcium(777 daily. mg) tablet documented as of this encounter Consult Notes Uriel Renner M.D. - 08/21/2015 8:58 AM CST [id number] HISTORY OF PRESENT ILLNESS Heather is a 69-year-old woman who is here in regard to her left shoulder. She is status post rotatorcuff repair. She has had difficulties with wound healing and a stitch abscess. She was placed on oral antibiotics from an outside ER and had it drained once again. There is still some redness that she is concerned about. PHYSICAL EXAMINATION Examination of her shoulder, her incision appears benign inferiorly, but there is a small scab superiorly with some redness surrounding this. The scab is plucked off and we found a significant portion of suture knot underneath this that will need to be pulled out. IMPRESSION/REPORT/PLAN Heather is a 69-year-old woman status post rotator cuff repair and a suture abscess. At this point intime, I think all the sutures are removed but we will have her remain on the antibiotics that she iscurrently on and we will see her back next Monday to ensure that this is resolving completely. Patient's visit today was 16 minutes long with 10 minutes of it counseling in regard to treatment options for her left shoulder pain. Uriel Renner M.D./opal Electronically Signed By: URIEL RENNER MD On: 08/25/2015 07:49 AM Source: [facility] MHSDOLBEYNONRADSYS Document Id: [id number] Y LEVEL RECRUITER documented in this encounter Miscellaneous Notes Miscellaneous - Uriel Renner M.D. - 08/21/2015 12:29 PM CST Ambulatory Discharge Medication List [address] [id number] Visit Information Name: EZEQUIELHEATHER AGUILAR ZELALEM [facility] Number: [id number] Visit Date: 08/21/2015 12:29:46 Attending Provider: URIEL RENNER MD Primary Care Provider: PCP, ELSEWHERE EZEQUIEL HEATHER MASTERSON has been given the following list of medications: Your Medications It is important to take your medications as directed. Use a pill box or chart to help remind you to take your medications. Please let your doctor or nurse know if you have problems taking your medications. Medication/Strength How to Take Indications/Special Instructions/Comments/Notes for [...] release) 1 Tablet(s), Oral, once a day naproxen (Aleve) 220 mg, Oral, Stop Taking the Following Medications: Medication list as of 08-21-15 12:29 Attention: If you have any medications at home that are not on this list, DO NOT take them until youcontact your provider for clarification. Give a copy of your medication list to your primary care provider. Update your medication list any time medications or doses are changed and carry your medication list at all times in case of emergency. Electronically Signed By: URIEL RENNER MD Signed On:21-AUG-2015 12:29:39 Additional Information: Source: [facility] POWERCHART Document Id: [id number] Y LEVEL RECRUITER Miscellaneous - Uriel Renner M.D. - 08/21/2015 12:29 PM CST Ambulatory Patient Summary [address] [id number] Visit Information Name: HEATHER NIEVES [facility] Number: [id number] Current Date: 08/21/2015 12:29:47 Physicians Attending Provider: URIEL RENNER MD Primary Care Provider: PCP, HEATHER ROJO ZELALEM has been given the following list of follow-up instructions, medication list, and patient education materials: Follow-up Instructions Your Medications Here is a list of your medications. It is important to take your medications as directed. Use a pillbox or chart to help remind you to take your medications. Please let your doctor or nurse know if you have problems taking your medications. Medication/Strength How to Take Indications/Special Instructions/Comments/Notes for [...] release) 1 Tablet(s), Oral, once a day naproxen (Aleve) 220 mg, Oral, Stop Taking the Following Medications: Medication list as of 08-21-15 12:29 Attention: If you have any medications at home that are not on this list, DO NOT take them until youcontact your provider for clarification. Give a copy of your medication list to your primary care provider. Update your medication list any time medications or doses are changed and carry your medication list at all times in case of emergency. Electronically Signed By: URIEL RENNER MD Signed On:21-AUG-2015 12:29:39 Your Allergies & Intolerances Substance Reaction Symptoms Category Comments codeine Vomiting Drug Your Problem List Problem Status Onset Comments No Problems found Your Upcoming Appointments Date Time Location Provider 08/25/2015 11:15 [facility] Uriel Renner MD Attention: Contact your local Clinic if further appointment detail needed. Consider Using Patient Online Services Patient Online [...] if you dont have one. Go to [email or web address] and click on Create Your Account. Then, follow the directions to complete the online form. Youll be asked for your [facility] number which you can find at the top of this document. Your Goals/Additional instructions: Source: [facility] POWERCHART Document Id: [id number] Y LEVEL RECRUITER Miscellaneous - Faiza Muse RJudithN. - 08/21/2015 9:24 AM ENTRY LEVEL RECRUITER Adult Processing Rep Intake/History Adult Processing Rep Intake/History Entered On: 08/21/2015 9:30 ENTRY LEVEL RECRUITER Performed On: 08/21/2015 9:24 ENTRY LEVEL RECRUITER by FAIZA MUSE equine science instructor Chief Complaint : Follow up of left shoulder arthroscopy. The superior portion of the incision continues to bother her. It has a scab and continues to be reddened. She was in the emergency room not to long ago and had it reopened. Temperature Core : 36.0 DegC(Converted to: 96.8 DegF) (LOW) Peripheral Pulse Rate : 68 /min Respiratory Rate : 18 /min Systolic Blood Pressure : 130 mmHg Diastolic Blood Pressure : 64 mmHg NIBP Mean : 86 mmHg SpO2 : 98 % Oxygen Therapy : Room air Height : 163 cm(Converted to: 5 ft 4 inch(es), 64 inch(es)) FAIZA MUSE RN - 08/21/2015 9:24 ENTRY LEVEL RECRUITER General Info Information Given By : Patient Preferred Communication Mode : Verbal Languages : Wallisian Is Patient Female and 13-50 no hysterectomy : No FAIZA MUSE RN - 08/21/2015 9:24 ENTRY LEVEL RECRUITER Subjective Pain Symptoms : Yes FAIZA MUSE RN - 08/21/2015 9:24 ENTRY LEVEL RECRUITER Pain Scale Pain Scale Verbal 0-10 : Open FAIZA MUSE RN - 08/21/2015 9:24 ENTRY LEVEL RECRUITER Pain Pain Assessment Grid Pain 1 Location : Shoulder (Comment: incision [FAIZA MUSE RN - 08/21/2015 9:24 ENTRY LEVEL RECRUITER] ) Laterality : Left FAIZA MUSE RN - 08/21/2015 9:24 ENTRY LEVEL RECRUITER Dependent Habits Exposure to Tobacco Smoke : Other: former Smoking Status : Former smoker Tobacco 2A : Yes Tobacco Use/Currently Using : No Tobacco Use/Last 30 Days : No Tobacco Use/Last 12 months : No FAIZA MUSE RN - 08/21/2015 9:24 ENTRY LEVEL RECRUITER Source: [facility] POWERCHART Document Id: [id number] ENTRY LEVEL RECRUITER!33 Y LEVEL RECRUITER documented in this encounter Plan of Treatment Not on filedocumented as of this encounter Visit Diagnoses Not on filedocumented in this encounter
--- OUTSIDE RECORDS SUMMARY | 2022-05-10 09:50 | XMS_ITS | Encounter Summary ---
:1945 Author Organization [facility] Address [address] [place] [address] Care Team Providers Name Role Phone Unavailable Primary Care Provider Unavailable Encounter Details Date Type Department Care Team Description 08/25/2015 Hospital Encounter HX [facility] Zabrina Sullivan M.D. [address] [phone] (Wo rk) Social History Tobacco Use [...] or relatives? How often do you attend muslim or Not asked rastafarian services? Do you belong to any clubs or Yes 04/11/2019 organizations such as muslim groups, unions, fraternal or athletic groups, or [...] Sign Reading Time Taken Comments Blood Pressure 108/62 08/25/2015 11:17 AM CLINCHING MACHINE OPERATOR Pulse 78 08/25/2015 11:17 AM CLINCHING MACHINE OPERATOR Temperature - - Respiratory Rate 18 08/25/2015 11:17 AM CLINCHING MACHINE OPERATOR Oxygen Saturation - - Inhaled Oxygen Concentration - - Weight - - Height 163 cm (5' 4.17) 08/25/2015 11:17 AM CLINCHING MACHINE OPERATOR Body Mass Index - - [...] encounter Consult Notes Uriel Renner M.D. - 08/25/2015 11:01 AM CST [id number] HISTORY OF PRESENT ILLNESS Heather is a 69-year-old woman who is here in regard to her shoulder. She is status post rotator cuffrepair. She is doing quite well at this point in time. PHYSICAL EXAMINATION Examination of her shoulder, her incision appears benign. The superior portion incision that was questionable is healing quite nicely. Range of motion: We were able to forward flex to approximately 110degrees, abduction is approximately 90 degrees, external rotation is 50 degrees. Strength testing: External rotation strength is 4 out of 5, internal rotation strength is nearly 5 out of 5 and supraspinatus strength is 4 out of 5. IMPRESSION/REPORT/PLAN Heather is a 69-year-old woman status post rotator cuff repair. At this point in time she is doing quite well. We will have her continue to work with physical therapy. We will plan to see her back in a month. Uriel Renner M.D./opal Electronically Signed By: URIEL RENNER MD On: 08/27/2015 07:29 AM Source: [facility] MHSDOLBEYNONRADSYS Document Id: [id number] CHING MACHINE OPERATOR documented in this encounter Miscellaneous Notes Miscellaneous - Uriel Renner M.D. - 08/25/2015 4:58 PM CST Ambulatory Patient Summary [address] [id number] Visit Information Name: EZEQUIELHEATHER AGUILAR ZELALEM [facility] Number: [id number] Current Date: 08/25/2015 16:58:01 Physicians Attending Provider: URIEL RENNER MD Primary Care Provider: PCP, LISA NIEVES HEATHER MASTERSON has been given the following [...] the Following Medications: Medication list as of 08-25-15 16:58 Attention: If you have any medications at [...] Electronically Signed By: URIEL RENNER MD Signed On:25-AUG-2015 16:57:58 Your Allergies & Intolerances Substance Reaction Symptoms Category Comments codeine Vomiting Drug Your Problem List Problem Status Onset Comments No Problems found Your Upcoming Appointments Date Time Location Provider 09/25/2015 10:45 [facility] Ortho Uriel Renner MD Attention: Contact your [...] if you dont have one. Go to [email or web address] and click on Create Your Account. Then, follow the directions to complete the online form. Youll be asked for your [facility] number which you can find at the top of this document. Your Goals/Additional instructions: Source: [facility] POWERCHART Document Id: [id number] CHING MACHINE OPERATOR Miscellaneous - Uriel Renner M.D. - 08/25/2015 4:58 PM CST Ambulatory Discharge Medication List [address] [id number] Visit Information Name: HEATHER NIEVES [facility] Number: [id number] Visit Date: 08/25/2015 16:58:00 Attending Provider: URIEL RENNER MD Primary Care Provider: PCP, LISA HEATHER NIEVES has been given the following list of [...] the Following Medications: Medication list as of 08-25-15 16:58 Attention: If you have any medications at [...] Electronically Signed By: URIEL RENNER MD Signed On:25-AUG-2015 16:57:58 Additional Information: Source: [facility] POWERCHART Document Id: [id number] CHING MACHINE OPERATOR Miscellaneous - Faiza Muse, R.N. - 08/25/2015 11:17 AM CLINCHING MACHINE OPERATOR Adult Fructose Loader Intake/History Adult Fructose Loader Intake/History Entered On: 08/25/2015 11:21 CLINCHING MACHINE OPERATOR Performed On: 08/25/2015 11:17 CLINCHING MACHINE OPERATOR by FAIZA MUSE academic physician Chief Complaint : Here to recheck incision on left shoulder. It is improving but she is concerned that she is still having so much pain in that arm. Temperature Core : 36.2 DegC(Converted to: 97.2 DegF) (LOW) Peripheral Pulse Rate : 78 /min Respiratory Rate : 18 /min Systolic Blood Pressure : 108 mmHg Diastolic Blood Pressure : 62 mmHg NIBP Mean : 77 mmHg SpO2 : 96 % Oxygen Therapy : Room air Height : 163 cm(Converted to: 5 ft 4 inch(es), 64 inch(es)) FAIZA MUSE RN - 08/25/2015 11:17 CLINCHING MACHINE OPERATOR General Info Information Given By : Patient Preferred Communication Mode : Verbal Languages : Surinamese Is Patient Female and 13-50 no hysterectomy : No FAIZA MUSE RN - 08/25/2015 11:17 CLINCHING MACHINE OPERATOR Subjective Pain Symptoms : Yes FAIZA MUSE RN - 08/25/2015 11:17 CLINCHING MACHINE OPERATOR Pain Scale Pain Scale Verbal 0-10 : Open FAIZA MUSE RN - 08/25/2015 11:17 CLINCHING MACHINE OPERATOR Pain Pain Assessment Grid Pain 1 Location : Shoulder Laterality : Left FAIZA MUSE RN - 08/25/2015 11:17 CLINCHING MACHINE OPERATOR Dependent Habits Exposure to Tobacco Smoke : Other: former Smoking Status : Former smoker Tobacco 2A : Yes Tobacco Use/Currently Using : No Tobacco Use/Last 30 Days : No Tobacco Use/Last 12 months : No FAIZA MUSE RN - 08/25/2015 11:17 CLINCHING MACHINE OPERATOR [facility] POWER[facility] Document Id: [id number] CLINCHING MACHINE OPERATOR!33 CHING MACHINE OPERATOR documented in this encounter Plan of Treatment Not on filedocumented as of this encounter Visit Diagnoses Not on filedocumented in this encounter
--- OUTSIDE RECORDS SUMMARY | 2022-05-10 09:50 | XMS_ITS | Encounter Summary ---
:1945 Author Organization [facility] Address [address] [place] [address] Care Team Providers Name Role Phone Unavailable Primary Care Provider Unavailable Encounter Details Date Type Department Care Team Description 04/11/2019 Clinical Communication Department of [facility], Orthopedic Surgery Tanya Laughlin L.P.N. in [place], [address] [phone] Social History Tobacco Use Types [...] or relatives? How often do you attend baptist or Not asked yazidism services? Do you belong to any clubs or Yes 04/11/2019 organizations such as baptist groups, unions, fraternal or athletic groups, or [...] Telephone Encounter - Karlie Benites R.N. - 04/12/2019 2:07 PM CDT Yahaira/Mino SILVA Telephone Encounter - Byron Bullock - 04/11/2019 2:42 PM CDT cx'd po Telephone Encounter - Tanya Garrido L.PJudtihNJudith - 04/11/2019 2:16 PM CDT Patient's Right shoulder surgery on 04/19/2019 with in [place] has been cancelled perpatient request. documented in this encounter Plan of Treatment Not on filedocumented as of this encounter Visit Diagnoses Not on filedocumented in this encounter
--- OUTSIDE RECORDS SUMMARY | 2022-05-10 09:50 | XMS_ITS | Encounter Summary ---
:1945 Author Organization [facility] Address [address] [place] [address] Care Team Providers Name Role Phone Unavailable Primary Care Provider Unavailable Encounter Details Date Type Department Care Team Description 09/25/2015 Hospital Encounter HX [facility] Zabrina Sullivan M.D. [address] [phone] (Wo rk) Social History Tobacco Use [...] or relatives? How often do you attend bahai or Not asked mandaeism services? Do you belong to any clubs or Yes 04/11/2019 organizations such as bahai groups, unions, fraternal or athletic groups, or [...] Sign Reading Time Taken Comments Blood Pressure 112/62 09/25/2015 10:39 AM CARDIAC TECHNICIAN Pulse 80 09/25/2015 10:39 AM CARDIAC TECHNICIAN Temperature - - Respiratory Rate 20 09/25/2015 10:39 AM CARDIAC TECHNICIAN Oxygen Saturation - - Inhaled Oxygen Concentration - - Weight - - Height 163 cm (5' 4.17) 09/25/2015 10:39 AM CARDIAC TECHNICIAN Body Mass Index - - documented in this encounter Medications at Time of Discharge Medication Sig Dispensed Refills Start Date End Date aspirin 81 mg chewable Chew 81 mg daily. 0 2011 tablet aspirin-calcium carbonate Take 81 mg by mouth 0 0 10/07/2011 02/02/2021 81 mg-300 mg calcium(777 daily. mg) tablet documented as of this encounter Consult Notes Uriel Renner M.D. - 09/25/2015 10:33 AM CST [id number] HISTORY OF PRESENT ILLNESS Heather is a 69-year-old woman who is here in regard to her shoulder. She is status post shoulder arthroscopy and rotator cuff repair. She did have wound healing trouble initially but this seems to be resolved. She is doing quite well from a functional standpoint. A minimal amount of pain and her function is substantially improved. PHYSICAL EXAMINATION Examination of her shoulder, range of motion, we are able to forward flex to 120 degrees, abduction is 95 degrees, external rotation is 60 degrees. Strength testing: External rotation is -5 out of 5, internal rotation is 5 out of 5, and supraspinatus testing is 4 out of 5. IMPRESSION/REPORT/PLAN Heather is a 69-year-old woman who is status post rotator cuff repair. She is doing quite well at this point. Will have her continue to work on her exercise program and will plan to see her back on an as-needed basis. Uriel Renner M.D./opal Electronically Signed By: URIEL RENNER MD On: 09/30/2015 10:56 AM Source: [facility] MHSDOLBEYNONRADSYS Document Id: [id number] IAC TECHNICIAN documented in this encounter Miscellaneous Notes Miscellaneous - Uriel Renner M.D. - 09/28/2015 7:48 AM CST Ambulatory Patient Summary [address] [id number] Visit Information Name: HEATHER NIEVES ZELALEM [facility] Number: [id number] Current Date: 09/28/2015 07:48:27 Physicians Attending Provider: URIEL RENNER MD Primary [...] the Following Medications: Medication list as of 09-28-15 07:48 Attention: If you have any medications at [...] Electronically Signed By: URIEL RENNER MD Signed On:28-SEP-2015 07:48:24 Your Allergies & Intolerances Substance Reaction Symptoms Category Comments codeine Vomiting Drug Your Problem List Problem Status Onset Comments No Problems found Your Upcoming Appointments Date Time Location Provider No Appointments found Attention: Contact your local Clinic if further [...] online form. Youll be asked for your [facility] number which you can find at the top of this document. Your Goals/Additional instructions: Source: [facility] POWERCHART Document Id: [id number] IAC TECHNICIAN Miscellaneous - Uriel Renner M.D. - 09/28/2015 7:48 AM CST Ambulatory Discharge Medication List [address] [id number] Visit Information Name: EZEQUIELHEATHER AGULIAR [facility] Number: [id number] Visit Date: 09/28/2015 07:48:26 Attending Provider: URIEL RENNER MD Primary Care [...] the Following Medications: Medication list as of 09-28-15 07:48 Attention: If you have any medications at [...] Electronically Signed By: URIEL RENNER MD Signed On:28-SEP-2015 07:48:24 Additional Information: Source: [facility] POWERCHART Document Id: [id number] IAC TECHNICIAN Miscellaneous - Faiza Muse, R.N. - 09/25/2015 10:39 AM CARDIAC TECHNICIAN Adult Register Of Wills Intake/History Adult Register Of Wills Intake/History Entered On: 09/25/2015 10:44 CARDIAC TECHNICIAN Performed On: 09/25/2015 10:39 CARDIAC TECHNICIAN by FAIZA MUSE sanitation superintendent Chief Complaint : Here for follow up of left shoulder. She is doing well. Temperature Core : 36.9 DegC(Converted to: 98.4 DegF) Peripheral Pulse Rate : 80 /min Respiratory Rate : 20 /min Systolic Blood Pressure : 112 mmHg Diastolic Blood Pressure : 62 mmHg NIBP Mean : 79 mmHg SpO2 : 96 % Oxygen Therapy : Room air Height : 163 cm(Converted to: 5 ft 4 inch(es), 64 inch(es)) FAIZA MUSE RN - 09/25/2015 10:39 CARDIAC TECHNICIAN General Info Information Given By : Patient Preferred Communication Mode : Verbal Languages : Gambian Is Patient Female and 13-50 no hysterectomy : No FAIZA MUSE RN - 09/25/2015 10:39 CARDIAC TECHNICIAN Subjective Pain Symptoms : No FAIZA MUSE RN - 09/25/2015 10:39 CARDIAC TECHNICIAN Dependent Habits Exposure to Tobacco Smoke : Other: former Smoking Status : Former smoker Tobacco 2A : Yes Tobacco Use/Currently Using : No Tobacco Use/Last 30 Days : No Tobacco Use/Last 12 months : No FAIZA MUSE RN - 09/25/2015 10:39 CARDIAC TECHNICIAN [facility]: [facility] POWER[facility] Document Id: [id number] CARDIAC TECHNICIAN!26 IAC TECHNICIAN documented in this encounter Plan of Treatment Not on filedocumented as of this encounter Visit Diagnoses Not on filedocumented in this encounter
--- OUTSIDE RECORDS SUMMARY | 2022-05-10 09:50 | XMS_ITS | Encounter Summary ---
:1945 Author Organization [facility] Address [address] [place] [address] Care Team Providers Name Role Phone Unavailable Primary Care Provider Unavailable Encounter Details Date Type Department Care Team Description 07/02/2019 Hospital Encounter Department of Amanda Scott, Pain Shoulder Right Radiology in [facility] C.N.[place], [place] D.N.P. [address] [place] [phone] Social History Tobacco Use Types Packs/Day Years [...] or relatives? How often do you attend mormonism or Not asked caodaism services? Do you belong to any clubs or Yes 04/11/2019 organizations such as mormonism groups, unions, fraternal or athletic groups, or [...] Chew 81 mg daily. 0 2011 tablet levothyroxine (SYNTHROID, Take 25 mcg by 3 [...] 81 mg-300 mg calcium(777 daily. mg) tablet estradiol (ESTRACE) 0.5 mg Take 0.5 mg by 0 01/07/2020 tablet mouth daily. sennosides-docusate sodium Take 1 tablet by 60 tablet 11 01/201901/07/2020 (SENOKOT-S) 8.6-50 mg per mouth 2 (two) times tablet a day. documented as of this encounter Plan of Treatment Not on filedocumented as of this encounter Procedures Procedure Name Priority Date/Time Associated Comments Diagnosis DX SHOULDER RIGHT RAD - Routine 07/02/2019 10:32 Pain Shoulder Resu lts for this 2+ VIEWS (most inpatients AM CHEF KITCHEN MANAGER Right procedure a re in and all the results outpatients) section. documented in this encounter Results DX Shoulder Right 2+ Views (07/02/2019 10:32 AM CHEF KITCHEN MANAGER) Anatomical Region Laterality Modality Upper Extremity, Shoulder, Musculoskeletal RST LOS, Right Digital Radiography Musculoskeletal ARZ LOS, Muskuloskeletal FLA LOS Specimen (Source) Anatomical Collection Method Collection Time Re ceived Time Location / / Volume Laterality 07/02/2019 10:57 AM CHEF KITCHEN MANAGER Impressions 07/02/2019 10:58 AM CHEF KITCHEN MANAGER Comparison 05/15/18. Right reverse total shoulder arthroplasty. Normal alignment. No hardware complicati ons. Distal clavicle excision. Narrative 07/02/2019 10:58 AM CHEF KITCHEN MANAGER EXAM: DX SHOULDER RIGHT 2+ VIEWS Procedure Note Evan Kaur M.D. - 07/02/2019 EXAM: DX SHOULDER RIGHT 2+ VIEWS IMPRESSION: Comparison 05/15/18. Right reverse total shoulder arthroplasty. Normal alignment. No hardware complicati ons. Distal clavicle excision. Amanda Scott APRN, C.N.P., D.N.P. IMG DIAGNOSTIC IMAG ING PROCEDURES documented in this encounter Visit Diagnoses Diagnosis Pain Shoulder Right documented in this encounter
--- OUTSIDE RECORDS SUMMARY | 2022-05-10 09:50 | XMS_ITS | Encounter Summary ---
:1945 Author Organization [facility] Address [address] [place] [address] Care Team Providers Name Role Phone Unavailable Primary Care Provider Unavailable Reason for Visit Reason Comments Pain Patient here for consult, c/ o right shoulder pain, states lifted something too heavy in November. MRI Done in [place]. Pain with sleeping. Injury Patient here for consult, c/ o right shoulder pain, states lifted something too heavy in November. MRI Done in [place]. Pain with sleeping. Appointment Request (Routine) - Closed Specialty Diagnoses / Procedures Referred By Contact Refer red To Contact Orthopedic Surgery Referral ID Status Reason Start Date Expiration Date Visits Requ ested Visits Authorized [id number] Closed 12/13/2018 12/13/2019 1 Encounter Details Date Type Department Care Team Description 01/15/2019 Office Visit Department of Uriel Renner, Sanju lemus Right Orthopedic Surgery in M.D. (Primary Dx) [address] [address] [place], [place] [phone] (Work) [phone] Social History Tobacco Use Types Packs/Day Years [...] do you attend jewish or Not asked hinduism services? Do you belong to any clubs [...] encounter Consult Notes Uriel Renner M.D. - 01/15/2019 10:00 AM CDT HISTORY OF PRESENT ILLNESS Heather is a 73-year-old woman who is here in regard to her right shoulder. She is status post a leftshoulder arthroscopy and rotator cuff repair done several years ago by me and did well postoperatively. The right shoulder, however, she experienced a rotator cuff tear, underwent repair at outside institution from this, had been doing well and then re-injured the shoulder. Subsequently, an MRI was obtained, which demonstrated a large massive re-tear of her rotator cuff. She is here today to discuss treatment options for this. OBJECTIVE PHYSICAL EXAMINATION Examination of her shoulder, range of motion we were able to forward flex to approximately 110 degrees. Abduction is 90 degrees. External rotation is 50 degrees. Strength testing, external rotation strength is 3-4/5, internal rotation strength is 5/5 and supraspinatus strength is 3-4/5. DIAGNOSTICS Outside MRI is reviewed, which demonstrates a large full-thickness rotator cuff tear of the entire supraspinatus with significant retraction and some atrophy. ASSESSMENT / PLAN #1 Heather is a 73-year-old woman dealing with a retear of her rotator cuff after repair I think given the size of this repair, atrophy of the muscle, I think the likelihood that a re-repair would be successful is very low at her age. I discussed with her the other treatment options and mysuggestion would be to consider the possibility of reverse shoulder arthroplasty. We will make plansto proceed with this reverse shoulder arthroplasty in the future with a preoperative workup done by her primary care physician. There appear to be no contraindications to surgery. The patient's visit today was 28 minutes long with 19 minutes of it counseling her treatment optionsfor her right shoulder pain and weakness. documented in this encounter Plan of Treatment Not on filedocumented as of this encounter Results Type and Screen (with reflex Antibody ID) (04/05/2019 10:56 AM CDT) [facility] Method Time Signature ABO Group A 04/05/2019 [...] Venous) AM CDT 11:[address] [facility] - 04/05/2019 12:43 PM CDT Specimen Information: Specimen ID: [id number] Specimen Type: Blood Specimen Collection Start Date: 04/05/20 10:56 AM Specimen Received Date: 04/05/2019 11:04 AM Specimen ID: [id number] Specimen Type: Blood Specimen Collection Start Date: 04/05/20 10:48 AM Specimen Received Date: 04/05/2019 10:48 AM Uriel Renner M.D. LAB BLOOD BANK TEST ORDERABL ES Performing Organization Address City/State/[facility] Code Phon e Number [facility] [id number] [address] [facility] documented in this encounter Visit Diagnoses Diagnosis Pain Shoulder Right - Primary Pain Shoulder Right documented in this encounter
--- OUTSIDE RECORDS SUMMARY | 2022-05-10 09:50 | XMS_ITS | Encounter Summary ---
:1945 Author Organization [facility] Address [address] [place] [address] Care Team Providers Name Role Phone Unavailable Primary Care Provider Unavailable Encounter Details Date Type Department Care Team Description 06/18/2019 Ancillary Procedure Department of General Surgery Social History Tobacco Use Types Packs/Day Years [...] or relatives? How often do you attend taoism or Not asked episcopalian services? Do you belong to any clubs or Yes 04/11/2019 organizations such as taoism groups, unions, fraternal or athletic groups, or [...] Name Priority Date/Time Associated Diagnosis Comme nts SURGERY IMAGE EXAM Routine 06/18/2019 7:55 AM Res ults for this COPYING MACHINE MECHANIC procedure are i n the results section. documented in this encounter Results Non-Radiology Image-Surgery Image Exam (06/18/2019 7:55 AM COPYING MACHINE MECHANIC) Specimen (Source) Anatomical Collection Method Collection Time Re ceived Time Location / / Volume Laterality 06/18/2019 8:18 AM COPYING MACHINE MECHANIC Narrative [facility] - 06/18/2019 7:55 AM COPYING MACHINE MECHANIC This order has been created and auto-finalized to support the import of images acquired without order. The clini ward documentation to support these images can be found on the encounter loni t produced images. Provider Not In System IMG NON RAD IMAGING PROCEDUR ES Performing Organization Address City/State/ZIP Code Phon e Number [facility] NA documented in this encounter Visit Diagnoses Not on filedocumented in this encounter
--- OUTSIDE RECORDS SUMMARY | 2022-05-10 09:50 | XMS_ITS | Encounter Summary ---
:1945 Author Organization [facility] Address [address] [place] [address] Care Team Providers Name Role Phone Unavailable Primary Care Provider Unavailable Encounter Details Date Type Department Care Team Description 07/14/2015 Hospital Encounter HX [facility] Zabrina Sullivan M.D. [address] [phone] (Wo rk) Social History Tobacco Use [...] or relatives? How often do you attend yarsani or Not asked quaker services? Do you belong to any clubs or Yes 04/11/2019 organizations such as yarsani groups, unions, fraternal or athletic groups, or [...] Sign Reading Time Taken Comments Blood Pressure 116/66 07/14/2015 8:15 AM AREA DEVELOPMENT MANAGER Pulse 75 07/14/2015 8:15 AM AREA DEVELOPMENT MANAGER Temperature - - Respiratory Rate 16 07/14/2015 8:15 AM AREA DEVELOPMENT MANAGER Oxygen Saturation - - Inhaled Oxygen Concentration - - Weight - - Height 163 cm (5' 4.17) 07/14/2015 8:15 AM AREA DEVELOPMENT MANAGER Body Mass Index - - documented in this encounter Medications at Time of Discharge Medication Sig Dispensed Refills Start Date End Date aspirin 81 mg chewable Chew 81 mg daily. 0 2011 tablet aspirin-calcium carbonate Take 81 mg by mouth 0 0 10/07/2011 02/02/2021 81 mg-300 mg calcium(777 daily. mg) tablet documented as of this encounter Consult Notes Uriel Renner M.D. - 07/14/2015 8:07 AM CST [id number] HISTORY OF PRESENT ILLNESS Heather is a 69-year-old woman who is here in regard to her shoulder. She is status post shoulder rotator cuff repair approximately 2 weeks ago. She has been weaning herself out of the sling. I told herthat this is not the right thing to do. She says she is still having some problems with pain. PHYSICAL EXAMINATION Examination of her shoulder range of motion, we were able to forward flex passively to [id number] degrees. Abduction is approximately 30 degrees and external rotation is approximately 20 degrees. IMPRESSION/REPORT/PLAN Heather is a 69-year-old woman who has rotator cuff repair. At this point in time, we will plan to start working with Physical Therapy but be very strict in regard to her mobilization still at this point in time other than working with Physical Therapy. We will plan to see her back when she is 6 weeks out and plan to proceed with progressive strengthening after that 6 week point. Uriel Renner M.D./opal Electronically Signed By: URIEL RENNER MD On: 07/15/2015 03:40 PM Source: [facility] MHSDOLBEYNONRADSYS Document Id: [id number] DEVELOPMENT MANAGER documented in this encounter Miscellaneous Notes Miscellaneous - Uriel Renner M.D. - 07/15/2015 10:51 AM CST Ambulatory Patient Summary [address] [id number] Visit Information Name: HEATHER NIEVES ZELALEM [facility] Number: [id number] Current Date: 07/15/2015 10:51:14 Physicians Attending Provider: URIEL RENNER MD Primary [...] for Pain No more than 4,000mg acetaminophen/24hrs Stop Taking the Following Medications: Medication list as of 07-15-15 10:51 Attention: If you have any medications at [...] Electronically Signed By: URIEL RENNER MD Signed On:15-JUL-2015 10:51:07 Your Allergies & Intolerances Substance Reaction Symptoms Category Comments codeine Vomiting Drug Your Problem List Problem Status Onset Comments No Problems found Your Upcoming Appointments Date Time Location Provider 08/04/2015 08:15 [facility] Isaac Gonzalez PA-C Attention: Contact your local Clinic if further [...] if you dont have one. Go to [email or web address] and click on Create Your Account. Then, follow the directions to complete the online form. Youll be asked for your [facility] number which you can find at the top of this document. Your Goals/Additional instructions: Source: [facility] POWERCHART Document Id: [id number] DEVELOPMENT MANAGER Miscellaneous - Uriel Renner M.D. - 07/15/2015 10:51 AM CST Ambulatory Discharge Medication List [address] [place], [place] [id number] Visit Information Name: HEATHER NIEVES [facility] Number: [id number] Visit Date: 07/15/2015 10:51:12 Attending Provider: URIEL RENNER MD Primary Care Provider: PCP, ELSEWHERE HEATHER NIEVES has been given the following [...] for Pain No more than 4,000mg acetaminophen/24hrs Stop Taking the Following Medications: Medication list as of 07-15-15 10:51 Attention: If you have any medications at [...] Electronically Signed By: URIEL RENNER MD Signed On:15-JUL-2015 10:51:07 Additional Information: Source: [facility] POWERCHART Document Id: [id number] DEVELOPMENT MANAGER Miscellaneous - Kaye Posada RTang - 07/14/2015 8:15 AM CST Adult Business Management Analyst Intake/History Adult Business Management Analyst Intake/History Entered On: 07/14/2015 8:19 AREA DEVELOPMENT MANAGER Performed On: 07/14/2015 8:15 AREA DEVELOPMENT MANAGER by KAYE POSADA parliamentary counsel Chief Complaint : 2 weeks post op rotator cuff repair, pain worse at night Temperature Core : 36.6 DegC(Converted to: 97.9 DegF) Peripheral Pulse Rate : 75 /min Respiratory Rate : 16 /min Heart Rhythm : Regular Systolic Blood Pressure : 116 mmHg Diastolic Blood Pressure : 66 mmHg NIBP Mean : 83 mmHg BP Location : Left upper extremity Blood Pressure Cuff Size : Regular SpO2 : 98 % Height : 163 cm(Converted to: 5 ft 4 inch(es), 64 inch(es)) KAYE POSADA RN - 07/14/2015 8:15 AREA DEVELOPMENT MANAGER General Info Information Given By : Patient Preferred Communication Mode : Verbal Languages : Mauritanian Is Patient Female and 13-50 no hysterectomy : No KAYE POSADA RN - 07/14/2015 8:15 AREA DEVELOPMENT MANAGER Subjective Pain Symptoms : Yes KAYE POSADA RN - 07/14/2015 8:15 AREA DEVELOPMENT MANAGER Pain Scale Pain Scale Verbal 0-10 : Open KAYE POSADA RN - 07/14/2015 8:15 AREA DEVELOPMENT MANAGER Pain Pain Assessment Grid Pain 1 Location : Shoulder KAYE POSADA RN - 07/14/2015 8:15 AREA DEVELOPMENT MANAGER Dependent Habits Exposure to Tobacco Smoke : Other: former Smoking Status : Former smoker Tobacco 2A : Yes Tobacco Use/Currently Using : No Tobacco Use/Last 30 Days : No Tobacco Use/Last 12 months : No KAYE OPSADA RN - 07/14/2015 8:15 AREA DEVELOPMENT MANAGER [facility] Document Id: [id number] AREA DEVELOPMENT MANAGER!34 DEVELOPMENT MANAGER documented in this encounter Plan of Treatment Not on filedocumented as of this encounter Visit Diagnoses Not on filedocumented in this encounter
--- OUTSIDE RECORDS SUMMARY | 2022-05-10 09:50 | XMS_ITS | Encounter Summary ---
:1945 Author Organization [facility] Address [address] [place] [address] Care Team Providers Name Role Phone Unavailable Primary Care Provider Unavailable Encounter Details Date Type Department Care Team Description 06/26/2019 Clinical Communication Department of General [place], Margarita [facility] [address] [place] [address] [place] [phone] Social History Tobacco Use Types Packs/Day [...] do you attend tenriism or Not asked congregational services? Do you belong to any clubs [...] this encounter Miscellaneous Notes Telephone Encounter - Margarita Taylor R.N. - 06/26/2019 3:04 PM NOVELTY TWISTER OPERATOR Heather wondered when she could take off her surgical dressing. AVS reviewed and it states that she can remove it at her appointment with her PCP. This appointment has been completed so she will proceedas instructed on her post discharge instructions. LTY TWISTER OPERATOR documented in this encounter Plan of Treatment Not on filedocumented as of this encounter Visit Diagnoses Not on filedocumented in this encounter
--- OUTSIDE RECORDS SUMMARY | 2022-05-10 09:50 | XMS_ITS | Encounter Summary ---
:1945 Author Organization [facility] Address [address] [place] [address] Care Team Providers Name Role Phone Unavailable Primary Care Provider Unavailable Reason for Referral Outpatient (Routine) - Closed Specialty Diagnoses / Procedures Referred By Contact Refer red To Contact Orthopedic Surgery Amanda Scott APRN, [facility] C.N.PJudith, D.N.PJudith [address] [place] [phone] Referral ID Status Reason Start Date Expiration Date Visits Requ ested Visits Authorized [id number] Closed 07/02/2019 07/01/2020 1 1 K RATING Reason for Visit Reason Comments Post-op S/p R reverse TSA 06/18 Outpatient (Routine) - Closed Specialty Diagnoses / Procedures Referred By Contact Refer red To Contact Orthopedic Surgery Diagnoses Pain Shoulder Right [facility] [address] [place] [phone] Referral ID Status Reason Start Date Expiration Date Visits Requ ested Visits Authorized [id number] Closed 05/21/2019 05/20/2020 1 1 Encounter Details Date Type Department Care Team Description 07/02/2019 Office Visit Department of Amanda Scott, Pain Should er Right Orthopedic Surgery in [place] HERNÁNDEZ.N.PJudith, Pastora [facility] D.N.PJudith [id number] [place] [address] [place] [phone] Social History Tobacco Use Types Packs/Day Years [...] or relatives? How often do you attend jainism or Not asked rastafarian services? Do you belong to any clubs or Yes 04/11/2019 organizations such as jainism groups, unions, fraternal or athletic groups, or [...] documented as of this encounter Progress Notes Amanda Scott APRN, C.N.P., D.N.P. - 07/02/2019 10:30 AM CST Heather is a pleasant 73-year-old female who is 2 weeks status post right reverse total shoulder arthroplasty. She has been abiding by restrictions but also working with physical therapy she has had 1 session and denies any particular pain. She denies any signs symptoms of infection and denies any numbness or tingling distal to the surgical site. Physical exam right shoulder surgical incision is well approximated healing well there is no signs of infection. She has excellent sensation distal to the surgical site. She is able to flex to 80?? without difficulty. Improved diagnostic studies x-ray shows right reverse total shoulder arthroplasty with no hardware failure. Impression and plan-Heather is a pleasant 73-year-old status post right reverse total shoulder arthroplasty who is doing very well. Will have her continue to work with physical therapy on a regular basis. We discussed signs and symptoms of infection she will report if any occur. We did discuss prophylactic antibiotic use for the future. We discussed gradual progression of her activity and motion then she will proceed with strengthening. She will continue to wear her sling for protection until therapyand weaned off. Will plan to see her back in 1 month she will most likely not need any x-rays at that time. Questions were answered K RATING documented in this encounter Plan of Treatment Scheduled Referrals Name Type Priority Associated Order Schedule Diagnoses Orthopedic Surgery Outpatient Referral Routine Ex pected: office visit 08/01/2019 (clinic) (Approximate), Expires: 07/02/2022 documented as of this encounter Results DX Shoulder Right 2+ Views (07/02/2019 10:32 AM CLERK RATING) Anatomical Region Laterality Modality Upper Extremity, Shoulder, Musculoskeletal RST LOS, Right Digital Radiography Musculoskeletal ARZ LOS, Muskuloskeletal FLA LOS Specimen (Source) Anatomical Collection Method Collection Time Re ceived Time Location / / Volume Laterality 07/02/2019 10:57 AM CLERK RATING Impressions 07/02/2019 10:58 AM CLERK RATING Comparison 05/15/18. Right reverse total shoulder arthroplasty. Normal alignment. No hardware complicati ons. Distal clavicle excision. Narrative 07/02/2019 10:58 AM CLERK RATING EXAM: DX SHOULDER RIGHT 2+ VIEWS Procedure Note Evan Kaur M.D. - 07/02/2019 EXAM: DX SHOULDER RIGHT 2+ VIEWS IMPRESSION: Comparison 05/15/18. Right reverse total shoulder arthroplasty. Normal alignment. No hardware complicati ons. Distal clavicle excision. Amanda Scott APRN, C.N.P., D.N.P. IMG DIAGNOSTIC IMAG ING PROCEDURES documented in this encounter Visit Diagnoses Diagnosis Pain Shoulder Right Pain Shoulder Right documented in this encounter
--- OUTSIDE RECORDS SUMMARY | 2022-05-10 09:50 | XMS_ITS | Encounter Summary ---
:[address] [facility] Address [address] [place] [address] Care Team Providers Name Role Phone Unavailable Primary Care Provider Unavailable Reason for Visit Reason Comments Post-op Outpatient (Routine) - Closed Specialty Diagnoses / Procedures Referred By Contact Refer red To Contact Orthopedic Surgery Amanda Scott APRN, [facility] C.N.P., D.N.P. [address] [place] [phone] Referral ID Status Reason Start Date Expiration Date Visits Requ ested Visits Authorized [id number] Closed 07/02/2019 07/01/2020 1 1 Encounter Details Date Type Department Care Team Description 08/23/2019 Office Visit Department of Uriel Renner Pain Sho ulder Right Orthopedic Surgery in [place].D. (Primary Dx) [address] [address] [place], [place] [phone] (Work) [phone] Social History Tobacco Use Types Packs/Day Years [...] or relatives? How often do you attend temple or Not asked mormon services? Do you belong to any clubs or Yes 04/11/2019 organizations such as temple groups, unions, fraternal or athletic groups, or [...] encounter Consult Notes Uriel Renner M.D. - 08/23/2019 10:30 AM CST HISTORY OF PRESENT ILLNESS Heather is a 73-year-old woman who is here in regard to her shoulder. She is status post a reverse total shoulder arthroplasty for a right massive rotator cuff repair. She is doing very well at this point in time. Denies any substantial troubles. She reports minimal pain and good function. OBJECTIVE PHYSICAL EXAMINATION On examination of her shoulder, range of motion was forward flex to 120 degrees, abduction is approximately 95 degrees. External rotation is 70 degrees. On strength testing, external rotation strength is 4/5 and internal rotation strength is 4/5 and supraspinatus strength is 4/5. ASSESSMENT / PLAN #1 Heather is status post reverse total shoulder arthroplasty At this point in time, she is doing very well. I will have her continue to work on her exercise program and plan to see her back on an as-needed basis. We talked about dental prophylaxis today and we will send a prescription. OGRAPHY TEACHER documented in this encounter Plan of Treatment Not on filedocumented as of this encounter Visit Diagnoses Diagnosis Pain Shoulder Right - Primary documented in this encounter
--- OUTSIDE RECORDS SUMMARY | 2022-05-10 09:50 | XMS_ITS | Encounter Summary ---
:1945 Author Organization [facility] Address [address] [place] [address] Care Team Providers Name Role Phone Unavailable Primary Care Provider Unavailable Encounter Details Date Type Department Care Team Description 07/28/2015 Hospital Encounter HX [facility] Zabrina Sullivan M.D. [address] [phone] (Wo rk) Social History Tobacco Use [...] do you attend shinto or Not asked zoroastrian services? Do you belong to any clubs [...] Sign Reading Time Taken Comments Blood Pressure 108/66 07/28/2015 3:06 PM TUFTER Pulse 82 07/28/2015 3:06 PM TUFTER Temperature - - Respiratory Rate 16 07/28/2015 3:06 PM TUFTER Oxygen Saturation - - Inhaled Oxygen Concentration - - Weight - - Height 163 cm (5' 4.17) 07/28/2015 3:06 PM TUFTER Body Mass Index - - documented in this encounter Medications at Time of Discharge Medication Sig Dispensed Refills Start Date End Date aspirin 81 mg chewable Chew 81 mg daily. 0 2011 tablet aspirin-calcium carbonate Take 81 mg by mouth 0 0 10/07/2011 02/02/2021 81 mg-300 mg calcium(777 daily. mg) tablet documented as of this encounter Consult Notes Uriel Renner M.D. - 07/28/2015 2:19 PM CST [id number] HISTORY OF PRESENT ILLNESS Heather is a 69-year-old woman who is in with regard to her left shoulder status post rotator cuff repair. There is concern in regard to infection at the superior aspect of her incision. She is here today for followup of this. PHYSICAL EXAMINATION Examination of her shoulder, appears relatively benign except for the superior aspect appears to be a suture abscess with no full fledged infection, but just a suture that seems to be trying to work its way out of the incision. IMPRESSION/REPORT/PLAN Heather is a 69-year-old woman who has a suture abscess. We made a little shanell in the skin and tried to pull this out today and at her request, we will place on an antibiotic. At this point in time, will plan to see her back after she has worked with Physical Therapy on strengthening exercises or next week if the irritation to this incision continues. Uriel Renner M.D./opal Electronically Signed By: URIEL RENNER MD On: 07/29/2015 05:03 PM Source: [facility] MHSDOLBEYNONRADSYS Document Id: [id number] ER documented in this encounter Miscellaneous Notes Miscellaneous - Kaye Posada, R.N. - 07/28/2015 3:06 PM CST Adult Cloth Covered Helmet Puller Intake/History Adult Cloth Covered Helmet Puller Intake/History Entered On: 07/28/2015 15:09 TUFTER Performed On: 07/28/2015 15:06 TUFTER by KAYE POSADA telegraph plant maintainer Chief Complaint : bump and white drainage from incision, surgery 06/26/15 Temperature Core : 36.6 DegC(Converted to: 97.9 DegF) Peripheral Pulse Rate : 82 /min Respiratory Rate : 16 /min Heart Rhythm : Regular Systolic Blood Pressure : 108 mmHg Diastolic Blood Pressure : 66 mmHg NIBP Mean : 80 mmHg BP Location : Left upper extremity Blood Pressure Cuff Size : Regular SpO2 : 96 % Height : 163 cm(Converted to: 5 ft 4 inch(es), 64 inch(es)) KAYE POSADA RN - 07/28/2015 15:06 TUFTER General Info Information Given By : Patient Preferred Communication Mode : Verbal Languages : Kyrgyz Is Patient Female and 13-50 no hysterectomy : No KAYE POSADA RN - 07/28/2015 15:06 TUFTER Subjective Pain Symptoms : Yes KAYE POSADA RN - 07/28/2015 15:06 TUFTER Pain Scale Pain Scale Verbal 0-10 : Open KAYE POSADA RN - 07/28/2015 15:06 TUFTER Pain Pain Assessment Grid Pain 1 Location : Shoulder KAYE POSADA RN - 07/28/2015 15:06 TUFTER Dependent Habits Exposure to Tobacco Smoke : Other: former Smoking Status : Former smoker Tobacco 2A : Yes Tobacco Use/Currently Using : No Tobacco Use/Last 30 Days : No Tobacco Use/Last 12 months : No KAYE POSADA RN - 07/28/2015 15:06 TUFTER [facility] Document Id: [id number] [id number] ER documented in this encounter Plan of Treatment Not on filedocumented as of this encounter Visit Diagnoses Not on filedocumented in this encounter
--- OUTSIDE RECORDS SUMMARY | 2022-05-10 09:50 | XMS_ITS | Encounter Summary ---
:[address] [facility] Address [address] [place] [address] Care Team Providers Name Role Phone Unavailable Primary Care Provider Unavailable Reason for Visit Reason Onset Date Comments Communication 02/18/2019 Encounter Details Date Type Department Care Team Description 02/18/2019 Clinical Communication Department of Uriel Renner ommunication Orthopedic Surgery Tian Cook in [address] [address] [place], [place] [phone] (Work) [phone] Social History Tobacco Use Types Packs/Day Years [...] or relatives? How often do you attend sikhism or Not asked yazidi services? Do you belong to any clubs or Yes 04/11/2019 organizations such as sikhism groups, unions, fraternal or athletic groups, or [...] Telephone Encounter - Faiza Paredes, RJudithN. - 02/18/2019 10:45 AM CDT Patient will be rescheduled to Apr 19. Telephone Encounter - Jen Negron L.P.N., R.N. - 02/18/2019 10:06 AM CDT Patient has this scheduled in [place]. Would like to push surgery out a week or more in [place] Telephone Encounter - Bela Terrazas - 02/18/2019 9:46 AM CDT Patient would like to reschedule her shoulder surgery w/Dr. Renner, she can be reached at [phone]. documented in this encounter Plan of Treatment Not on filedocumented as of this encounter Visit Diagnoses Not on filedocumented in this encounter
--- OUTSIDE RECORDS SUMMARY | 2022-05-10 09:50 | XMS_ITS | Encounter Summary ---
:1945 Author Organization [facility] Address [address] [place] [address] Care Team Providers Name Role Phone Unavailable Primary Care Provider Unavailable Reason for Visit Reason Onset Date Comments SCHEDULE SURGERY 05/15/2019 Encounter Details Date Type Department Care Team Description 05/15/2019 Clinical Communication Department of Uriel Renner SURGERY Orthopedic Surgery Tian Cook in [place] [address] [address] [place], [place] [phone] (Work) [phone] Social History Tobacco Use Types Packs/Day Years [...] or relatives? How often do you attend jew or Not asked baptist services? Do you belong to any clubs or Yes 04/11/2019 organizations such as jew groups, unions, fraternal or athletic groups, or [...] Telephone Encounter - Missy Aldrich R.N. - 05/21/2019 1:34 PM CDT Patient was rescheduled for Right reverse TSA with Dr. Renner on 06/18 in [place]. She will needto repeat pre-op and type and screen prior to surgery. She does not need to repeat total joint classas she did this a few months ago prior to canceling surgery. Telephone Encounter - Missy Aldrich R.N. - 05/16/2019 9:31 AM CDT Spoke with patient, she would like to schedule in June. I will call her back one June schedules are finalized by OR allocation group in [place]. Telephone Encounter - Jen Negron L.P.N., RJudithN. - 05/16/2019 8:55 AM CDT Patient would like to schedule surgery in [place]. Patient informed to call them to schedule. This message forwarded to [place] nurse Telephone Encounter - Opal Elena - 05/15/2019 3:48 PM CDT Patient called stating she would like to reschedule her total shoulder surgery with Dr. Renner. Please follow up with her at [phone]. Thank you! documented in this encounter Plan of Treatment Not on filedocumented as of this encounter Visit Diagnoses Not on filedocumented in this encounter
--- OUTSIDE RECORDS SUMMARY | 2022-05-10 09:51 | XMS_ITS | Encounter Summary ---
:1945 Author Organization [facility] Address [address] [place] [address] Care Team Providers Name Role Phone Unavailable Primary Care Provider Unavailable Encounter Details Date Type Department Care Team Description 04/07/2015 Hospital Encounter HX [facility] Zabrina Sullivan M.D. [address] [phone] (Wo rk) Social History Tobacco Use [...] or relatives? How often do you attend buddhism or Not asked moravian services? Do you belong to any clubs or Yes 04/11/2019 organizations such as buddhism groups, unions, fraternal or athletic groups, or [...] Sign Reading Time Taken Comments Blood Pressure 104/62 04/07/2015 9:58 AM CDT Pulse 69 04/07/2015 9:58 AM CDT Temperature - - Respiratory Rate 18 04/07/2015 9:58 AM CDT Oxygen Saturation - - Inhaled Oxygen Concentration [...] encounter Consult Notes Uriel Renner M.D. - 04/07/2015 9:48 AM CDT [id number] HISTORY OF PRESENT ILLNESS Heather is a 69-year-old woman who is here in regard to her left shoulder. She has had ongoing troubles with left shoulder pain going on for the past year and a half. She saw <__IM_1: BLANK __> in the past but did not have any distinct treatment at that point in time. The pain has gradually worsened. She notes that the most severe pain seems just around the shoulder itself to the anterolateral aspect of the shoulder but she does notice that it does go down into her arm to some extent and upinto her neck to some extent. She has worked on an exercise program in the past but no significant improvement was noted. The other issue that she brings up today is that she has had some difficulties with her foot particularly in regard to her right foot. She had a previous fusion at her great toe MTP joint and went on to have difficulties with the plate fracturing and subsequent difficulties with persistent pain. She wonders in regard to treatment options for this as well. PHYSICAL EXAMINATION Examination of her shoulder, range of motion we were able to forward flex to 120 degrees. Abduction is 90 degrees. External rotation is 60 degrees. Strength testing, external rotation strength is 4 outof 5, internal rotation strength is 5 out of 5 and supraspinatus strength is 4 out of 5. She has very positive impingement signs as well and most of the tenderness is overlying the anterolateral aspectof her shoulder. There is some mild tenderness overlying the AC joint. Examination of her right foot, she does appear to have some motion at the MTP joint of the right great toe palpable but it was relatively limited. DIP joint still remains mobile and overall excellent alignment is noted. 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 IMPRESSION/REPORT/PLAN Heather is a 69-year-old woman who is dealing with 2 major issues at this point in time. In regard toher shoulder my suggestion is to obtain an MRI of her shoulder as she does have some weakness in hershoulder, it has gone on for a year and a half and despite conservative measures, has not made much i mprovement. We will see her back after the MRI is obtained to discuss the results with her and continuing care. In regard to her foot, we could certainly remove the hardware but it is likely that she would have to undergo repeat fusion of the joint including the use of bone grafting as well as screw and/or plate fixation to re-fuse this area. We will first see how the shoulder is doing, evaluate this, and further <__IM_2: BLANK __> requires surgical intervention before considering anything in regard to the foot. Patient's visit today was 32 minutes long with 20 minutes of counseling in regards to treatment options for her right foot and left shoulder pain. Uriel Renner M.D./opal Electronically Signed By: URIEL RENNER MD On: 04/08/2015 09:30 AM Source: [facility] MHSDOLBEYNONRADSYS Document Id: [id number] documented in this encounter Miscellaneous Notes Miscellaneous - Faiza Muse RJudithN. - 04/07/2015 9:58 AM CDT Adult Online Marketing Director Intake/History Adult Online Marketing Director Intake/History Entered On: 04/07/2015 10:02 CDT Performed On: 04/07/2015 9:58 CDT by FAIZA MUSE trackman Chief Complaint : left shoulder pain. started hurting at work about 1 1/2 years ago[address] She [address] Dr[address] Lorenzo but no follow up. Pain is mainly in the the shoulder but radiates to her neck and down her arm. Temperature Core : 36.2 DegC(Converted to: 97.2 DegF) (LOW) Peripheral Pulse Rate : 69 /min Respiratory Rate : 18 /min Systolic Blood Pressure : 104 mmHg Diastolic Blood Pressure : 62 mmHg NIBP Mean : 76 mmHg SpO2 : 98 % Oxygen Therapy : Room air FAIZA MUSE RN - 04/07/2015 9:58 CDT General Info Information Given By : Patient Preferred Communication Mode : Verbal Languages : Sami Is Patient Female and 13-50 no hysterectomy : No FAIZA MUSE RN - 04/07/2015 9:58 CDT Subjective Pain Symptoms : Yes FAIZA MUSE RN - 04/07/2015 9:58 CDT Pain Scale Pain Scale Verbal 0-10 : Open FAIZA MUSE RN - 04/07/2015 9:58 CDT Pain Pain Assessment Grid Pain 1 Location : Shoulder Laterality : Left FAIZA MUSE RN - 04/07/2015 9:58 CDT Dependent Habits Tobacco Use/Currently Using : No Smoking Status : Former smoker FAIZA MUSE RN - 04/07/2015 9:58 CDT Source: [facility] [employer] Document Id: [id number] CDT!28 documented in this encounter Plan of Treatment Not on filedocumented as of this encounter Visit Diagnoses Not on filedocumented in this encounter
--- OUTSIDE RECORDS SUMMARY | 2022-05-10 09:51 | XMS_ITS | Encounter Summary ---
:1945 Author Organization [facility] Address [address] [place] [address] Care Team Providers Name Role Phone Unavailable Primary Care Provider Unavailable Encounter Details Date Type Department Care Team Description 04/13/2015 Hospital Encounter HX [facility] Misael Renner M.D. [address] [phone] (Wo rk) Social History Tobacco Use [...] do you attend congregational or Not asked anabaptism services? Do you belong to any clubs [...] mg) tablet documented as of this encounter Miscellaneous Notes Miscellaneous - Conversion, Historical Provider Ser - 04/13/2015 11:59 PM CDT Coding Summary-Paper Based CODING DATE: 04/16/2015 FINAL [facility] STATUS: * Discharged to Home or Self Care PAYOR: [employer] ADMIT DX: 840.5 Subscapularis (Muscle) Sprain REASON FOR VISIT DX: 840.5 Subscapularis (Muscle) Sprain FINAL DX: PRINCIPAL: 840.5 Subscapularis (Muscle) Sprain SECONDARY: 715.31 Osteoarthrosis, Localized, Not Specified Whether Primary or Secondary, Involving Shoulder Region 726.10 Disorders of Bursae and Tendons in Shoulder Region, Unspecified 793.7 Nonspecific (Abnormal) Findings on Radiological and Other Examination of Musculoskeletal System E928.9 Unspecified Accident PROCEDURES DOCTOR NAME DATE NOTE: The code number assigned matches the documented diagnosis and / or procedure in the patient's chart. However, the narrative phrase printed from the coding software may appear abbreviated, or result in slightly different terminology. Coded By: ULISES WERNER Date Saved: 04/16/2015 02:42 pm Source: [facility] [employer] Document Id: [id number] documented in this encounter Plan of Treatment Not on filedocumented as of this encounter Visit Diagnoses Not on filedocumented in this encounter
== END 2022-05-10 09:29 | disposition home or self-care (01) ==
LOC: NFLDREF 09:29
PROVIDERS: PCP Family Medicine; Visit Provider Family Medicine
DX: R39.9 Unspecified symptoms and signs involving the genitourinary system (principal)
CPT/HCPCS: 87086

== ENCOUNTER 2023-04-13 12:49 | Outpatient (CLI) | payer MEDICARE, BC, SELFPAY ==
--- NOTE | 2023-04-13 13:00 | CRLHL7_ITS ---
For Patients: As a result of the Century Cures Act, medical imaging exams and procedure reports are released immediately into your electronic medical record. You may view this report before your referring provider. If you have questions, please contact your health care provider. BILATERAL SCREENING MAMMOGRAM WITH COMPUTER-AIDED DETECTION AND TOMOSYNTHESIS TECHNIQUE: CC and MLO views were obtained. These mammographic images have been obtained using full-field digital technique. These mammographic images were interpreted with the benefit of computer-aided detection. Breast Tomosynthesis was used in this interpretation. COMPARISON FILM: 02/04/22, 11/30/20, 10/23/19. FINDINGS: The breasts are heterogeneously dense, which may obscure small masses IMPRESSION: There is no radiographic evidence for malignancy. ASSESSMENT: BI-RADS Category 1: Negative RECOMMENDATION: Routine screening mammogram in 1 year. A lay language report of this examination will be provided to the patient. Evan Gonzalez M.D. Diagnostic Radiologist [email or web address] MATTIE/steven / be/Dictated by: Evan Gonzalez MD @ 04/14/2023 11:58:00 AM (Electronically Signed)
== END 2023-04-13 12:50 | disposition home or self-care (01) ==
LOC: MAMMO 12:50
PROVIDERS: PCP Family Medicine; Visit Provider Family Medicine
DX: Z12.31 Encounter for screening mammogram for malignant neoplasm of breast (principal); R92.2 Inconclusive mammogram
CPT/HCPCS: 77063; 77067

== ENCOUNTER 2023-05-08 09:10 | Outpatient (CLI) | payer MEDICARE, BC, SELFPAY | END 2023-05-08 09:11 | disposition home or self-care (01) | LOC: NFLDREF 05-10 06:24 | PROVIDERS: PCP Family Medicine; Referring Provider Family Medicine; Visit Provider Family Medicine | DX: Z00.00 Encounter for general adult medical examination without abnormal findings (principal); E11.9 Type 2 diabetes mellitus without complications; E03.9 Hypothyroidism, unspecified; E78.5 Hyperlipidemia, unspecified; R31.0 Gross hematuria | CPT/HCPCS: 80053; 80061; 82043; 82570; 82607; 84443 ==

== ENCOUNTER 2023-06-23 11:03 | Outpatient (CLI) | payer MEDICARE, BC, SELFPAY | END 2023-06-23 11:04 | disposition home or self-care (01) | LOC: NFLDREF 11:05 | PROVIDERS: PCP Family Medicine; Visit Provider Family Medicine | DX: Z01.818 Encounter for other preprocedural examination (principal); E87.5 Hyperkalemia | CPT/HCPCS: 80048 ==

== ENCOUNTER 2023-09-04 10:30 | Outpatient (RCR) | payer MEDICARE, BC, SELFPAY | END 2024-01-02 23:59 | disposition home or self-care (01) | PROVIDERS: PCP Family Medicine; Visit Provider Orthopaedic Surgery | DX: Z53.20 Procedure and treatment not carried out because of patient's decision for unspecified reasons (principal) ==

== ENCOUNTER 2023-09-08 09:45 | Outpatient (RCR) | payer MEDICARE, BC, SELFPAY | END 2023-10-10 13:16 | disposition home or self-care (01) | PROVIDERS: PCP Family Medicine; Visit Provider Orthopaedic Surgery | DX: M17.11 Unilateral primary osteoarthritis, right knee (principal); M25.561 Pain in right knee; Z74.09 Other reduced mobility; R53.1 Weakness; Z51.89 Encounter for other specified aftercare | CPT/HCPCS: 97110; 97140; 97161; 97164 ==

== ENCOUNTER 2023-09-11 09:22 | Outpatient (CLI) | payer MEDICARE, BC, SELFPAY ==
--- OUTSIDE RECORDS SUMMARY | 2023-09-13 11:31 | XMS_ITS | Clinical Summary ---
Author Name Unknown Organization [facility] Address [place], [place] [address] Care Team Providers Care Solid Waste Technician Name Role Phone Vanessa García MD Primary Care Provider + Allergies Active Allergy Reactions Criticality Noted Date Comments Atorvastatin Myalgia 04/13/2017 Codeine Nausea And Vomiting 03/22/2011 Ezetimibe Myalgia 04/13/2017 Rosuvastatin Myalgia 04/13/2017 Medications Medication Sig Dispensed Refills Start Date End Date Status levothyroxine (SYNTHROID) 25 mcg tablet Take 25 mcg by mouth before breakfast. 0 Active FLUTICASONE PROPIONATE (FLONASE NASL) Inhale 2 Sprays in the nostril(s) once daily if needed. 0 Active metFORMIN (GLUCOPHAGE XR) 500 mg Extended-Release tablet Take 1,000 mg by mouth 2 times daily with meals. 0 Active Cholecalciferol, Vitamin D3, 2,000 unit tablet Take 2,000 Units by mouth once daily. 0 Active acetaminophen (TYLENOL) 325 mg tabletIndications:Pr imary osteoarthritis of left knee Take 1-2 tablets by mouth every 6 hours if needed. Max acetaminophen dose: 4000mg in 24 hrs. 100 tablet 0 04/21/2017 Active ibuprofen (ADVIL; MOTRIN) 600 mg tabletIndications:Pr imary osteoarthritis of left knee Take 1 tablet by mouth every 6 hours if needed for Pain (Take with food). Maximum of 3200 mg in 24 hours. 40 tablet 0 04/21/2017 Active aspirin chewable 81 mg chewable tablet Take 1 tablet by mouth once daily with a meal. 0 03/28/2018 Active rosuvastatin (CRESTOR) 5 mg tabletIndications:Dy slipidemia Take 1 tablet by mouth at bedtime. Further refills to come from primary care provider. 90 tablet 0 03/26/2020 Active Magnesium Oxide 500 mg tab Daily 0 Active mirabegron EXTENDED-release (MYRBETRIQ) 50 mg tabletIndications:Ov eractive bladder Take 1 tablet by mouth once daily. 30 tablet 11 09/09/2020 Active estradioL (ESTRACE) 0.1 mg/g vaginal creamIndications:Rec urrent urinary tract infection Insert 1 g into the vagina at bedtime. 1 Tube 5 09/09/2020 Active gabapentin (Neurontin) 100 mg capsuleIndications:A ftercare following surgery of the musculoskeletal system Take 1 Capsule (100 mg) by mouth three times daily. 270 Capsule 0 05/29/2023 Active Active Problems Problem Noted Date Diagnosed Date Dyslipidemia 04/12/2019 s/p left total knee arthroplasty 04/20/17 04/24/20 17 Type 2 diabetes mellitus 04/20/2017 Hypothyroid 04/20/2017 Atypical mole 04/20/2017 Primary osteoarthritis of left knee 03/28/2017 Primary osteoarthritis of right knee 03/28/2017 Adenomatous colon polyp 10/30/2013 Overview: Colonoscopy 10/2013 polyp repeat in 5 years Immunizations Name Administration Dates Next Due Influenza, High-dose Inactivated 04/29/2014 Pneumococcal conj 13-Valent (Prevnar 13) 014 Td (Age >=7 Years) 07/05/1999 Tdap 03/22/2011 Zoster (Zostavax-ZVL, live) 12/30/2011 Social History Tobacco Use Types Packs/Day Years Used Date Smoking Tobacco: Former Cigarettes Q uit: 08/14/1991 Smokeless Tobacco: Never Tobacco Cessation:Counseling Given: Yes Alcohol Use Standard Drinks/Week Comments Yes 0 (1 standard drink = 0.6 oz pur e alcohol) Rarely Social Connections Answer Date Recorded Frequency of Communication with Friends and Fami ly Not on file 08/14/2021 Financial Resource Strain Answer Date R ecorded Difficulty of Paying Living Expenses Not on file 08/14/2021 Difficulty of Paying Living Expenses Not on file 08/14/2021 Sex and Gender Information Value Date Recorded Sex Assigned at Not on file Gender Identity Not on file Sexual Orientation Not on file Obstetrics History Last Filed Vital Signs Vital Sign Reading Time Taken Comments Blood Pressure 107/65 09/09/2020 11:02 AM JIG BUILDER Pulse 77 09/09/2020 11:02 AM JIG BUILDER Temperature 36.4 ??C (97.5 ??F) 06/24/2020 2:38 PM CS T Respiratory Rate 16 04/22/2017 7:38 AM CDT Oxygen Saturation 98% 09/09/2020 11:02 AM JIG BUILDER Inhaled Oxygen Concentration - - Weight 68.1 kg (150 lb 1.6 oz) 09/09/2020 11:02 AM JIG BUILDER Height 162.6 cm (5' 4.02) 04/18/2018 11:26 AM C DT Body Mass Index 25.75 04/18/2018 11:26 AM CDT Plan of Treatment Health Maintenance Due Date Last Done Comments COVID-19 vaccine series (#1) 05/30/1946 Depression screening for age 12+ 1958 Hepatitis C screening for age 18-79 1964 DEXA/DXA scan for age 65+ 11/29/2011 Medicare Wellness for age 65+ 11/29/2011 Zoster (shingles) series for age 50+ (2 of 3) 02/24/2012 12/30/2011 Pneumococcal series for age 65+ (2 of 2 - PPSV23 or PCV20) 07/15/2015 07/15/2014 BMI (ht and wt on same day) for age 18+ 04/18/2019 04/18/2018, 04/18/2017, 03/29/2017 Tetanus booster 03/22/2021 03/22/2011, 0804/2011, 07/05/1999 Influenza for age 65+ 04/14/2023 04/29/2014 Tdap Completed 03/22/2011 Medical Devices Implanted Type Area Dry Man Device Identifier Shelf Expiration Date Model / Serial / Lot Patella Sz32 Miriam Ii Rnd Fifi Avery - [id number] Implanted:Qty: 1 on 04/20/2017 by Barrie Contreras MD at [facility] Total Joint Left: Patella [employer] 01/11/2027 [id number] # / / [id number] Lens Iol 22 Tecnis - [id number] Implanted:Qty: 1 on 10/13/2015 by Evan Walker MD at [facility] Left: Eye [employer] 07/07/2020 [id number]# / [id number] 1 / Cmnt Bone Simplex Atb Tobramycin - [id number] Implanted:Qty: 1 on 04/20/2017 by Barrie Contreras MD at [facility] Left: Knee [employer] 08/13/2018 [id number] 1# / / [id number] Cmnt Bone Simplex Atb Tobramycin - [id number] Implanted:Qty: 1 on 04/20/2017 by Barrie Contreras MD at [facility] Left: Knee [employer] 08/13/2018 [id number] 1# / / [id number] Baseplate Tib Lt Sz2 Miriam Ii Titnm Non Pors - [id number] Implanted:Qty: 1 on 04/20/2017 by Barrie Contreras MD at [facility] Left: Tibia [employer] 03/04/2027 71- # / / [id number] Fem Lt Sz4n Legion Narrow [employer] - [id number] Implanted:Qty: 1 on 04/20/2017 by Barrie Contreras MD at [facility] Left: Femur [employer] 12/05/2026 [id number]# / / [id number] Insert Knee Sz1-2 12mm Legion Cruc Ret High Flex Xlpe - [id number] Implanted:Qty: 1 on 04/20/2017 by Barrie Contreras MD at [facility] Left: Tibia [employer] 07/13/2024 [id number] / / [id number] Advance Directives Latest Code Status on File Code Status Date Activated Date Inactivated Comments Full Code 04/20/2017 3:12 PM 04/22/2017 1:24 PM Code Status History Code Status Date Activated Date Inactivated Comments Full Code 04/20/2017 9:48 AM 04/20/2017 3:08 PM Full Code 04/18/2017 11:34 AM 04/18/2017 4:07 PM Full Code 10/13/2015 8:05 AM 10/13/2015 12:35 PM Full Code 02/18/2015 12:27 PM 02/18/2015 3:02 PM Care Teams Solid Waste Technician Relationship Specialty Start Date End Date Vanessa García MD [address] [place] [address] PCP - General Family Practice 10/07/15
--- OUTSIDE RECORDS SUMMARY | 2023-09-13 11:32 | XMS_ITS | Encounter Summary ---
Author Name Unknown Organization [facility] Address [address] [place] [address] Care Team Providers Care Respite Care Provider Name Role Phone None Reported, Pcp Primary Care Provider Unavail able Encounter Details Date Type Department Care Team (Late st Contact Info) Description 08/29/2023 1:21 PM STATE WILDLIFE OFFICER - 08/29/2023 2:16 PM STATE WILDLIFE OFFICER [facility] in [address] [phone] Uriel Renner M.D. [address] [place] [phone] MANIPULATION KNEE Social History Tobacco Use Types Packs/Day Years Used Date Smoking Tobacco: Former Cigarettes 0 Smokeless Tobacco: Never Alcohol Use Standard Drinks/Week Comments Not Currently 0 (1 standard drink = 0.6 oz pur e alcohol) Social Connection and Isolat ion Panel [NHANES] Answer Date Recorded Frequency of Communication w ith Friends and Family More than three times a week 04/11/2019 Frequency of Social Gatherin gs with Friends and Family Three times a week 04/11/2019 Attends Jain Services Not on file 04/11 Active Member of Clubs or Organizations Yes 04/11/2019 Attends Club or Organization Meetings Not on mike e 04/11/2019 Marital Status Not on file 04/11/2019 AUDIT-C Answer Date Recorded Frequency of Alcohol Consumption Monthly or less 04/11/2019 Average Number of Drinks Not on file 019 Frequency of Binge Drinking Not on file 03/15 Overall Financial Resource Strain (CARDIA) Answe r Date Recorded Difficulty of Paying Living Expenses Not hard at all 04/11/2019 PHQ-2 Answer Date Recorded PHQ-2 Score 0 10/24/2022 Exercise Vital Sign Answer Date Recorde d Days of Exercise per Week 1 day 2018 Minutes of Exercise per Session Not on file 04/11/2019 Hunger Vital Sign Answer Date Recorded Worried About Running Out of Food in the Last Ye ar Never true 04/11/2019 Ran Out of Food in the Last Year Not on file 04/11/2019 PRAPARE - Transportation Answer Date Re corded Lack of Transportation (Medical) No 04/11/2019 Lack of Transportation (Non-Medical) Not on file 04/11/2019 Nutrition Answer Date Recorded Nutrition: EVOO Fat Source Unknown 10/07 Nutrition: Servings of Fruits/Vegetables per Day Not on file 10/07/2020 Dental Answer Date Recorded Dental: Regular Dentist Unknown 10/07/19 21 Sex and Gender Information Value Date Recorded Sex Assigned at Not on file Gender Identity Not on file Sexual Orientation Straight 10/24/2022 2: 54 PM CDT documented as of this encounter Medications at Time of Discharge Medication Sig Dispensed Refills Start Date End Date acetaminophen (TYLENOL) 500 mg tablet Take 2 tablets (1,000 mg total) by mouth every 6 (six) hours. 0 07/05/2023 metFORMIN XR (GLUCOPHAGE-XR) 500 mg 24 hr tablet Take 1,000 mg by mouth 2 (two) times a day. 0 ondansetron (ZOFRAN) 4 mg tablet Take 1 tablet (4 mg total) by mouth every 8 (eight) hours as needed for nausea or vomiting. 20 tablet 0 07/06/2023 oxyCODONE (ROXICODONE) 5 mg immediate release tabletIndications:Prolo nged Acute Pain/Traumatic Injury Take 1-2 tablets (5-10 mg total) by mouth every 4 (four) hours as needed for pain Indication: Prolonged Acute Pain/Traumatic Injury. 50 tablet 0 07/06/2023 rosuvastatin (CRESTOR) 5 mg tablet Take 5 mg by mouth at bedtime. 3 06/04/2019 sennosides-docusate sodium (SENOKOT-S) 8.6-50 mg per tablet Take 1 tablet by mouth 2 (two) times a day. 60 tablet 0 07/05/2023 documented as of this encounter Plan of Treatment Upcoming Encounters Date Type Department Care Team (Late st Contact Info) Description 09/26/2023 10:30 AM STATE WILDLIFE OFFICER Office Visit Department of Orthopedic Surgery in [address] [phone] Amanda Scott APRN, C.N.P., D.N.P. [address] [place] [phone] Discharge Disposition: Home or Self Care documented as of this encounter Procedures Procedure Name Priority Date/Time Associated Diagnosis Comments MANIPULATION KNEE 08/29/2023 9:21 PM STATE WILDLIFE OFFICER Pain Knee Right documented in this encounter Visit Diagnoses Diagnosis Pain Knee Right documented in this encounter Admitting Diagnoses Diagnosis Pain Knee Right documented in this encounter Care Teams Respite Care Provider Relationship Specialty Start Date End Date None Reported, Pcp PCP - General Family Medicine 07/05/23 documented as of this encounter
--- OUTSIDE RECORDS SUMMARY | 2023-09-13 11:32 | XMS_ITS | Referral Summary ---
Author Name Unknown Organization [facility] Address [address] [place] [address] Care Team Providers Care Greenhouse Laborer Name Role Phone None Reported, Pcp Primary Care Provider Unavail able Source Comments Patient records contain information from all sites at [facility]. For routine questions regarding patient records, call [phone] during business hours, M-F 8:00 AM - 5:00 PM Central Time. Record requests for emergency care only can be directed to [phone] at any time.[facility] Encounters Date Type Department Care Team Description 08/29/2023 1:21 PM FARM APPRAISER - 08/29/2023 2:16 PM FARM APPRAISER Surgery Outpatient Procedure Center in [address] [address] Uriel Renner M.D. MANIPULATION KNEE 08/29/2023 11:44 AM FARM APPRAISER - 08/29/2023 12:05 PM FARM APPRAISER Hospital Encounter Outpatient Procedure Center in [address] [phone] Uriel Renner M.D. Discharge Disposition: Home or Self Care 08/25/2023 Clinical Communication Department of Orthopedic Surgery in [address] [phone] Uriel Renner M.D. 08/25/2023 10:45 AM FARM APPRAISER Virtual Visit Preoperative Evaluation Center in [address] [phone] Amanda Scott APRN, C.N.P., D.N.P. Milly Mason, R.N. Preanesthetic Medical Exam (Primary Dx); Aftercare Total Knee Arthroplasty Discharge Disposition: Home or Self Care 08/24/2023 11:00 AM FARM APPRAISER Office Visit Department of Family Medicine, [facility], in [address] [phone] Candice Barcenas APRN C.N.PJudith Aftercare Total Knee Arthroplasty (Primary Dx); History Of Falling; Primary Osteoarthritis Knee Right; Preoperative Exam Discharge Disposition: Home or Self Care 08/22/2023 Clinical Communication Department of Orthopedic Surgery in [address] [phone] Uriel Renner M.D. 08/22/2023 2:00 PM FARM APPRAISER Office Visit Department of Orthopedic Surgery in [address] [phone] Amanda Scott APRN, Edy.N.P., D.N.PJudith Aftercare Total Knee Arthroplasty (Primary Dx) Discharge Disposition: Home or Self Care 07/21/2023 10:17 AM FARM APPRAISER - 07/21/2023 11:59 PM FARM APPRAISER Hospital Encounter Department of Radiology in [address] [phone] Uriel Renner M.D. Pain Knee Right; Arthroplasty Total Knee Replacement Status Post Right Discharge Disposition: Home or Self Care 07/21/2023 10:15 AM FARM APPRAISER Office Visit Department of Orthopedic Surgery in [address] [phone] Uriel Renner M.D. Pain Knee Right (Primary Dx); Arthroplasty Total Knee Replacement Status Post Right Discharge Disposition: Home or Self Care 07/07/2023 Abstract [facility] MADALYN Puri [address] [place] [address] Provider, Historical 07/05/2023 6:20 AM FARM APPRAISER - 07/06/2023 1:55 PM FARM APPRAISER Hospital Encounter [facility], Third Floor [address] [place] [phone] Uriel Renner M.D. Discharge Disposition: Home or Self Care 07/05/2023 6:15 AM FARM APPRAISER Ancillary Procedure Department of General Surgery 07/05/2023 7:35 AM FARM APPRAISER - 07/05/2023 10:05 AM FARM APPRAISER Surgery Outpatient Procedure Center in [address] [phone] Uriel Renner M.D. ROBOTIC-ASSISTED KNEE TOTAL ARTHROPLASTY 07/05/2023 7:46 AM FARM APPRAISER Anesthesia Event Outpatient Procedure Center in [address] [phone] Chemo Olivarez M.D. Barker, Shelly, M.D. 06/26/2023 2:15 PM FARM APPRAISER Virtual Visit Preoperative Evaluation Center in [address] [phone] Uriel Renner M.D. Wagner, Amy J, R.NJudith Preanesthetic Medical Exam (Primary Dx); Pain Knee Right; Primary Osteoarthritis Knee Right Discharge Disposition: Home or Self Care 06/19/2023 11:00 AM FARM APPRAISER Education Department of Orthopedic Surgery in [address] [phone] Uriel Renner M.D. Gubash, Katherine M, R.N. Pain Knee Right; Primary Osteoarthritis Knee Right Discharge Disposition: Home or Self Care 06/19/2023 10:03 AM FARM APPRAISER - 06/19/2023 11:59 PM FARM APPRAISER Hospital Encounter Department of Radiology in [address] [phone] Uriel Renner M.D. Pain Knee Right; Primary Osteoarthritis Knee Right Discharge Disposition: Home or Self Care from Last 3 Months Allergies Active Allergy Reactions Criticality Noted Date Comments Atorvastatin Myalgia Low 04/13/2017 Codeine Nausea And Vomiting, Nausea Only,GI intolerance Low 03/22/2011 Ezetimibe Myalgia Low 04/13/2017 Pravastatin Other (see comments) Low 04/05/2019 Body aches Medications Medication Sig Dispensed Refills Start Date End Date Status rosuvastatin (CRESTOR) 5 mg tablet Take 5 mg by mouth at bedtime. 3 06/04/2019 Active acetaminophen (TYLENOL) 500 mg tablet Take 2 tablets (1,000 mg total) by mouth every 6 (six) hours. 0 07/05/2023 Active aspirin 81 mg chewable tablet Chew 1 tablet (81 mg total) 2 (two) times a day. 90 tablet 0 07/05/2023 Active sennosides-docusate sodium (SENOKOT-S) 8.6-50 mg per tablet Take 1 tablet by mouth 2 (two) times a day. 60 tablet 0 07/05/2023 Active oxyCODONE (ROXICODONE) 5 mg immediate release tabletIndications:Pr olonged Acute Pain/Traumatic Injury Take 1-2 tablets (5-10 mg total) by mouth every 4 (four) hours as needed for pain Indication: Prolonged Acute Pain/Traumatic Injury. 50 tablet 0 07/06/2023 Active ondansetron (ZOFRAN) 4 mg tablet Take 1 tablet (4 mg total) by mouth every 8 (eight) hours as needed for nausea or vomiting. 20 tablet 0 07/06/2023 Active metFORMIN XR (GLUCOPHAGE-XR) 500 mg 24 hr tablet Take 1,000 mg by mouth 2 (two) times a day. 0 Active Active Problems Problem Noted Date Diagnosed Date History Of Falling 08/24/2023 Pain Knee Right 08/22/2023 Arthroplasty Total Shoulder Replacement Status P ost Right 06/18/2019 Pain Chest 04/08/2019 Pain Shoulder Right 01/15/2019 Overview: Added automatically from request for surgery [id number] Primary Osteoarthritis Shoulder Right 01/15/2019 Overview: Added automatically from request for surgery [id number] Encounter For Other Orthopedic Aftercare 017 Nevus Pigmented 04/20/2017 Primary Osteoarthritis Knee Left 03/28/2017 Primary Osteoarthritis Knee Right 03/28/2017 Polyp Colon Adenomatous 10/30/2013 Overview: Overview: Colonoscopy 10/2013 polyp repeat in 5 years Hyperlipidemia Diabetes Mellitus Type 2 Without Complication Hypothyroidism Insomnia Constipation Resolved Problems Problem Noted Date Diagnosed Date Resolved Date Pain Joint 06/18/2019 06/18/2019 Immunizations Name Administration Dates Next Due H1N1 All Forms 09/04/2009 HZV (ZOSTAVAX) 12/30/2011 HepA Adult 12/15/2016,06/15/2016 Influenza high dose QV(65 ye ars or older) (PF) 11/03/2020,05/04/2020 MMR 11/30/2018 PCV13 07/15/2014 PPSV23 01/08/2016 RZV (SHINGRIX) 03/27/2019,01/16/2019 Td (Adult), adsorbed 07/05/1999 Tdap 03/22/2011 influenza high dose (65 year s or older) (PF) 05/23/2019,05/15/2018,05/10/2016, 016,04/29/2014 influenza vaccine quad (FLUZONE/FLUARIX) (6 months and older)(PF) 04/26/2017 Social History Tobacco Use Types Packs/Day Years Used Date Smoking Tobacco: Former Cigarettes 0 Smokeless Tobacco: Never Tobacco Cessation:Counseling Given: Not Answered Alcohol Use Standard Drinks/Week Comments Not Currently 0 (1 standard drink = 0.6 oz pur e alcohol) Social Connection and Isolat ion Panel [NHANES] Answer Date Recorded Frequency of Communication w ith Friends and Family More than three times a week 04/11/2019 Frequency of Social Gatherin gs with Friends and Family Three times a week 04/11/2019 Attends [employer] Services Not on file 04/11 Active Member [...] Orientation Straight 10/24/2022 2: 54 PM CDT Last Filed Vital Signs Vital Sign Reading Time Taken Comments Blood Pressure 136/76 08/24/2023 11:00 AM FARM APPRAISER Pulse 76 08/24/2023 11:00 AM FARM APPRAISER Temperature 36.2 ??C (97.2 ??F) 08/24/2023 10:[address] Respiratory Rate 14 08/24/2023 10:57 AM FARM APPRAISER Oxygen Saturation 98% 08/24/2023 10:57 AM FARM APPRAISER Inhaled Oxygen Concentration - - Weight 60 kg (132 lb 4.4 oz) 08/24/2023 10:57 AM FARM APPRAISER Height 162.8 cm (5' 4.09) 08/24/2023 10:[address] Body Mass Index 22.64 08/24/2023 10:57 AM FARM APPRAISER Plan of Treatment Upcoming Encounters Date Type Department Care Team (Late st Contact Info) Description 09/26/2023 10:30 AM FARM APPRAISER Office Visit Department of Orthopedic Surgery in [address] [phone] Amanda Scott APRN, C.N.P., D.N.P. [address] [place] [phone] Discharge Disposition: Home or Self Care Medical Devices Implanted Type Area Laboratory Apparatus Glass Blower Device Identifier Shelf Expiration Date Model / Serial / Lot Hardware E.G. Pins/Screws/R ods Hardware e.g. pins/screws/ rods Right: Foot Knee Implant Knee Implant Left: Knee Ins Tib Trt Ps Sz4 10 - [id number] Implanted:Qty : 1 on 07/05/2023 by Uriel Renner M.D. at [facility] Knee Implant Right: Knee Tram 01/04/2028 [id number]-G-[id number] 0-[id number] / / [id number] Reunuin Rsa Humeral Cup 32mm/4mm Implanted:Qty : 1 on 06/18/2019 at [facility] Shoulder Implant Darvin [id number] 03/09/2024 [id number] / / [id number] Procedures Procedure Name Priority Date/Time Associated Diagnosis Comments MANIPULATION KNEE 08/29/2023 9:2 1 PM FARM APPRAISER Pain Knee Right BASIC METABOLIC PANEL, S/P Routine 08/24/2023 11:58 AM FARM APPRAISER Preoperative Exam DX KNEE RIGHT 3 VIEWS RAD - Routine (most inpatients and all outpatients) 07/21/2023 10:32 AM FARM APPRAISER Pain Knee Right Arthroplasty Total Knee Replacement Status Post Right GLUCOSE POCT, B Routine 07/06/2023 1:06 PM FARM APPRAISER GLUCOSE POCT, B Routine 07/06/2023 8:02 AM FARM APPRAISER HEMOGLOBIN A1C, B Routine 07/06/2023 5:5 2 AM FARM APPRAISER HEMOGLOBIN, B Routine 07/06/2023 5:52 AM FARM APPRAISER GLUCOSE POCT, B Routine 07/05/2023 9:34 PM FARM APPRAISER GLUCOSE POCT, B Routine 07/05/2023 4:35 PM FARM APPRAISER PULSE OXIMETRY, CONTINUOUS Routine 07/05/2023 11:01 AM FARM APPRAISER PULSE OXIMETRY, CONTINUOUS Routine 07/05/2023 11:01 AM FARM APPRAISER LDA ANE ENDOTRACHEAL AIRWAY Routine 07/05/2023 7:54 AM FARM APPRAISER WI INJ ANES FEM NERVE W GUIDANCE Routine 07/05/2023 7:43 AM FARM APPRAISER ROBOTIC-ASSISTED KNEE TOTAL ARTHROPLASTY 07/05/2023 7:35 AM FARM APPRAISER Primary Osteoarthritis Knee Right GLUCOSE POCT, B Routine 07/05/2023 7:22 AM FARM APPRAISER ECG STAT 07/05/2023 7:10 AM FARM APPRAISER SURGERY IMAGE EXAM Routine 07/05/2023 6: [address] KNEE RIGHT WITHOUT IV CONTRAST RAD - Routine (most inpatients and all outpatients) 06/19/2023 10:25 AM FARM APPRAISER Pain Knee Right Primary Osteoarthritis Knee Right from Last 3 Months Results * Basic Metabolic Panel (08/24/2023 11:58 AM FARM APPRAISER) Potassium, P 4.5 3.6 - 5.2 mmol/L 08/24/2023 12:27 PM FARM APPRAISER CNFL Sodium, P 136 135 - 145 mmol/L 08/24/2023 12:27 PM FARM APPRAISER CNFL Chloride, P 100 98 - 107 mmol/L 08/24/2023 12:27 PM FARM APPRAISER CNFL Bicarbonate, P 28 22 - 29 mmol/L 08/24/2023 12:27 PM FARM APPRAISER CNFL Anion Gap, P 8 7 - 15 08/24/2023 12:27 PM FARM APPRAISER CNFL BUN (Blood Urea Nitrogen), P 14 6 - 21 mg/dL 08/24/2023 12:27 PM FARM APPRAISER CNFL Creatinine 0.64 0.59 - 1.04 mg/dL 08/24/2023 12:27 PM FARM APPRAISER CNFL Estimated GFR (eGFR) >90 >=60 mL/min/BSA 08/24/2023 12:27 PM FARM APPRAISER CNFL Comment: Estimated GFR calculated using the 2020 CKD_EPI creatinine equation. Calcium, Total, P 10.0 8.8 - 10.2 mg/dL 08/24/2023 12:27 PM FARM APPRAISER CNFL Glucose, P 111 70 - 140 mg/dL 08/24/2023 12:27 PM FARM APPRAISER CNFL Blood (Blood, Venous) 08/24/2023 11:58 AM FARM APPRAISER 08/24/2023 12:00 PM FARM APPRAISER Candice Barcenas APRN, C.N.P. LAB BLOOD ADD -ON [facility] [address] [place] [phone], [facility] CNFL [facility] in [address] [address] * DX Knee Right 3 Views (07/21/2023 10:32 AM FARM APPRAISER) Anatomical Region Laterality Modality Lower Extremity, Knee, Muscu loskeletal RST LOS, Musculoskeletal ARZ LOS, Muskuloskeletal FLA LOS Right Digit al Radiography 07/21/2023 10:5 4 AM FARM APPRAISER Impressions 07/21/2023 10:57 AM FARM APPRAISER Images are interpreted with comparison to CT 06/29/2023. Indwelling right knee arthroplasty with components present and expected position/alignment. No periprosthetic fracture. Mild periarticular soft tissue swelling and small joint effusion. Pin tracks within the distal femur and proximal tibia. Visualized left knee arthroplasty within normal limits. Narrative 07/21/2023 10:57 AM FARM APPRAISER EXAM: DX KNEE RIGHT 3 VIEWS Procedure Note Evan Daniels M.D. - 07/21/2023 EXAM: DX KNEE RIGHT 3 VIEWS IMPRESSION: Images are interpreted with comparison to CT 06/29/2023. Indwelling rightknee arthroplasty with components present and expected position/alignment.No periprosthetic fracture. Mild periarticular soft tissue swelling andsmall joint effusion. Pin tracks within the distal femur and proximal tibia. Visualized leftknee arthroplasty within normal limits. Uriel Renner M.D. IMG DIAGNOSTIC NILS GING PROCEDURES * (ABNORMAL) Glucose, POCT (07/06/2023 1:06 PM FARM APPRAISER) Only the most recent of5 resultswithin the time period is included. Glucose, POCT, B 148(H) 70 - 140 mg/dL 07/06/2023 1:06 PM FARM APPRAISER RDWG Blood 07/06/2023 1:06 PM FARM APPRAISER 07/06/2023 1:16 PM FARM APPRAISER Generic Rals LAB POCT ORDERABLES- MANUAL Performing Organization Address City/[facility]/ZIP Co de Phone Number [facility] [address] [place] [address], [facility] RDWG [facility] in [place] [phone] * (ABNORMAL) Hemoglobin (07/06/2023 5:52 AM FARM APPRAISER) Hemoglobin 9.4(L) 11.6 - 15.0 g/dL 07/06/2023 6:37 AM FARM APPRAISER RDWG Blood (Blood, Venous) 07/06/2023 5:52 AM FARM APPRAISER 07/06/2023 6:30 AM FARM APPRAISER Amanda Scott APRN, C.N.P., D.N.P. LAB BLO OD ADD-ON [facility] [address] [facility] [place] [address], [facility] RDWG [facility] in [address] [phone] * (ABNORMAL) Hemoglobin A1c (07/06/2023 5:52 AM FARM APPRAISER) Hemoglobin A1c, B 7.2(H) 4.2 - 5.6 % 07/06/2023 6:50 AM FARM APPRAISER RDWG Comment: Hemoglobin A1c values greater than or equal to 6.5 percent are diagnostic for diabetes mellitus. ??Diagnosis should be confirmed by repeat testing. ??In diabetic patients, HbA1c goals should be discussed with healthcare provider. Blood (Blood, Venous) 07/06/2023 5:52 AM FARM APPRAISER 07/06/2023 6:30 AM FARM APPRAISER Uriel Renner M.D. LAB BLOOD ADD-ON [facility] [address] [place] [address], [facility] RDWG [facility] in [place] [address] [place] [address] * LDA ANE ENDOTRACHEAL AIRWAY (07/05/2023 7:54 AM FARM APPRAISER) Narrative Evan Hernandez APRN, CRNA R.N. - 07/05/2023 7:54 AM FARM APPRAISER Evan Hernandez APRN, CRNA R.N. ? 07/05/2023 ??8:13 AM Airway Date/Time: 07/05/2023 7:54 AM Performed by: Evan Hernandez APRN, CRNA R.N. Authorized by: Chemo Olivarez M.D. ?? Patient location during procedure: OR / Procedure Area PROCEDURE DETAILS: Mask difficulty assessment: easy mask Final airway type: direct laryngoscopy, intubation Laryngeal Manipulation: no ?? Final airway difficulty of direct laryngoscopy (DL): 1-some difficulty Final best view of glottic structures - Cormack/Lehane Score: grade 3A ETT location: oral Blade type: Martinez 2 Tube size: 7 ETT distance at teeth/gum: 21 Oral tube type: standard ETT Cuffed: yes Leak Test Performed: no ?? Number of attempt to successful placement: 1 Airway confirmation: bilateral breath sounds, positive ETCO2 and bilateral chest rise Other previous techniques attempted: none PRE PROCEDURE DETAILS: Pre evaluation for airway management: procedure Urgency: elective Preoxygenation: bag valve mask SEDATION / ANESTHESIA Anesthesia method: anesthesia POST PROCEDURE DETAILS: ? Procedure outcome: successful ?? Airway event: no complications Chemo Olivarez M.D. ANESTHESIA ORDERABL ES * WI INJ ANES FEM NERVE W GUIDANCE (07/05/2023 7:43 AM FARM APPRAISER) Narrative Evan Hernandez APRN, CRNA R.N. - 07/05/2023 7:43 AM FARM APPRAISER Evan Hernandez APRN, CRNA R.N. ? 07/05/2023 ??8:11 AM Regional Block Date/Time: 07/05/2023 7:43 AM Performed by: Evan Hernandez APRN, KIRSTIN, R.N. Authorized by: Chemo Olivarez M.D. ?? Location: Pre Op / PACU PROCEDURE DETAILS: Block Indication: post-op pain block ?? Block indication comment: Post-Op pain block at request of surgeon Block Type - Lower extremity: adductor canal Positioning: supine ?? Laterality: right Block technique: ultrasound guided ?? Ultrasound image guidance used to localize target, identify at risk structures, and dynamically used to direct therapy to the target. Procedure was performed under sterile conditions.Image(s) acquired and saved Injection technique: single injection Needle type: echogenic Gauge: 20G Length: 10 Test dose: no test dose given ?? Incremental injection of local anesthetic with aspiration every:5cc Pain with needle advancement or injection of local anesthetic: no ?? Injected Medications: Injection(s), anesthetic agent(s) and/or steroid; See MAR UNIVERSAL PROTOCOL All relevant documentation and testing were reviewed and available. All required blood products, implants, devices and or special equipment were made available as applicable. Pre-procedure verification was conducted and the correct site was marked if required. A fire risk assessment was done as applicable. The procedural time-out to verify correct patient, correct side/site, and procedure was conducted prior to performing the procedure and confirmed in a procedural pause. PRE-PROCEDURE DETAILS: ?? Appropriate hand hygiene, gown, cap, mask, protective eyewear, sterile gloves, skin preparation, sterile drape, and strict aseptic technique were utilized as applicable for the procedure.: yes ?? Skin prep: chlorhexidine / alcohol SEDATION / ANESTHESIA Anesthesia method: local infiltration Local infiltrate type: bupivacaine POST-PROCEDURE DETAILS: Procedure completed successfully: successful procedure Other complications: none Chemo Olivarez M.D. PROCEDURE/MINOR CLARISSA GICAL ORDERABLES * ECG 12 Lead (07/05/2023 7:10 AM FARM APPRAISER) Ventricular Rate ECG/Min 62 BPM MUSE QRSD Interval 84 ms MUSE QT Interval 410 ms MUSE QTC Interval 416 ms MUSE R [place] -54 degrees MUSE T Wave [place] 10 degrees MUSE 07/05/2023 7:10 AM FARM APPRAISER 07/05/2023 9:51 AM FARM APPRAISER Impressions MUSE - 07/05/2023 7:21 AM FARM APPRAISER Normal sinus rhythm Left anterior fascicular block Nonspecific ST abnormality When compared with ECG of 18-JUN-2019 07:06, No significant change in data has occurred Reviewed by AUBREY Johnson Narrative Procedure Note Bahman Flood M.D., Ph.D. - 07/05/2023 IMPRESSION: Normal sinus rhythm Left anterior fascicular block Nonspecific ST abnormality When compared with ECG of 18-JUN-2019 07:06, No significant change in data has occurred Reviewed by AUBREY Johnson Wilda Armendariz M.D. ECG ORDERABLES Performing Organization Address City/[facility]/ZIP Co de Phone Number MUSE NA * Non-Radiology Image-Surgery Image Exam (07/05/2023 6:15 AM FARM APPRAISER) 07/05/2023 6:13 AM FARM APPRAISER Narrative IIMS - 07/05/2023 7:50 AM FARM APPRAISER This order has been created and auto-finalized to support the import of images acquired without order. The clinical documentation to support these images can be found on the encounter that produced images. Provider Not In System IMG NON RAD IMAGI NG PROCEDURES Performing Organization Address [facility] Co de Phone Number IIMS NA * CT Knee Right without IV Contrast (06/19/2023 10:25 AM FARM APPRAISER) Anatomical Region Laterality Modality Lower Extremity, Knee, Muscu loskeletal RST LOS, Musculoskeletal ARZ LOS, Muskuloskeletal FLA LOS Right Compu jonathan Tomography 06/19/2023 11:2 2 AM FARM APPRAISER Impressions 06/19/2023 11:28 AM FARM APPRAISER Advanced knee degenerative arthritis. Narrative 06/19/2023 11:28 AM FARM APPRAISER EXAM: ??CT KNEE RIGHT WITHOUT IV CONTRAST No 3D post-processing performed. COMPARISON: ??None FINDINGS: ?? Artifact degrades image quality. Advanced degenerative arthritis of the right knee with marginal spurs. Medial compartmental narrowing with subchondral sclerosis. Joint bodies at the knee joint medially deep to the MCL. Superior pole patellar enthesophytes. Heterotopic ossification or fractured osteophyte of the superior patella. Knee effusion versus synovitis. Vascular calcifications. Sigmoid diverticula. No suspicious findings at the visualized right hip. Procedure Note Damien Padilla M.D. - 06/19/2023 EXAM: CT KNEE RIGHT WITHOUT IV CONTRAST No 3D post-processing performed. COMPARISON: None FINDINGS: Artifact degrades image quality. Advanced degenerative arthritis of theright knee with marginal spurs. Medial compartmental narrowing withsubchondral sclerosis. Joint bodies at the knee joint medially deep to theMCL. Superior pole patellar enthesophytes. Heterotopic ossification or fractured osteophyte of thesuperior patella. Knee effusion versus synovitis. Vascular calcifications.Sigmoid diverticula. No suspicious findings at the visualized right hip. IMPRESSION: Advanced knee degenerative arthritis. Uriel Renner M.D. IMG CT PROCEDURES from Last 3 Months Advance Directives For more information, please contact: [phone] Documents on File Type Date Recorded Patient Algology Teacher Expl anation Advance Directives 07/07/2023 9:39 AM Robert TELLEZOA/ADVOCATE/AGENT/ PEARL PELLER/SURROG ATE Latest Code Status on File Code Status Date Activated Date Inactivated Comments Full Code 07/05/2023 11:01 AM 07/06/2023 3:55 PM Question Answer Comments Full Code: Not Discussed Due to: Patient not available Code Status History Code Status Date Activated Date Inactivated Comments Full Code 06/18/2019 11:29 AM 06/19/2019 12:47 PM Question Answer Comments Full Code: Not Discussed Due to: Patient not available Healthcare Agents on File Name Relationship Healthcare Agent Relationship Communication Robert Harrell Spouse Health Care Agent Elizabeth Diaz Daughter First Alternate Health Care Agent Verónica Devlin Daughter Second Alternate Health Care Agent Care Teams Greenhouse Laborer Relationship Specialty Start Date End Date None Reported, Pcp PCP - General Family Medicine 07/05/23
--- OUTSIDE RECORDS SUMMARY | 2023-09-13 11:32 | XMS_ITS | Clinical Summary ---
Author Name Unknown Organization [facility] Address [address] [place] [address] Care Team Providers Care Pediatric Neurologist Name Role Phone None Reported, Pcp Primary Care Provider Unavail able Source Comments Patient records contain information from all sites at [facility]. For routine questions regarding patient records, call [phone] during business hours, M-F 8:00 AM - 5:00 PM Central Time. Record requests for emergency care only can be directed to [phone] at any time.[facility] Allergies Active Allergy Reactions Criticality Noted Date [...] Overview: Added automatically from request for surgery [id number] Primary Osteoarthritis Shoulder Right 01/15/2019 Overview: Added automatically from request for surgery [id number] Encounter For Other Orthopedic Aftercare 017 Nevus Pigmented 04/20/2017 Primary Osteoarthritis Knee Left 03/28/2017 Primary Osteoarthritis Knee Right 03/28/2017 Polyp Colon Adenomatous 10/30/2013 Overview: Overview: Colonoscopy 10/2013 polyp repeat in 5 years Hyperlipidemia Diabetes Mellitus Type 2 Without Complication Hypothyroidism Insomnia Constipation Resolved Problems Problem Noted Date Diagnosed Date Resolved Date Pain Joint 06/18/2019 06/18/2019 Encounters Date Type Department Care Team Description 08/29/2023 1:21 PM CELLO TEACHER - 08/29/2023 2:16 PM [facility] Surgery Outpatient Procedure Center in [address] [phone] Uriel Renner M.D. MANIPULATION KNEE 08/29/2023 11:44 AM CELLO TEACHER - 08/29/2023 12:05 PM [facility] Hospital Encounter Outpatient Procedure Center in [address] [phone] Uriel Renner M.D. Discharge Disposition: Home or Self Care 08/25/2023 10:45 AM CELLO TEACHER Virtual Visit Preoperative Evaluation Center in [address] [phone] Amanda Scott APRN, C.N.P., D.N.P. Milly Mason, R.NJudith Preanesthetic Medical Exam (Primary Dx); Aftercare Total Knee Arthroplasty Discharge Disposition: Home or Self Care 08/25/2023 Clinical Communication Department of Orthopedic Surgery in [address] [phone] Uriel Renner M.D. 08/24/2023 11:00 AM CELLO TEACHER Office Visit Department of Family Medicine, [facility], in [address] [phone] Candice Barcenas APRN, C.N.PJudith Aftercare Total Knee Arthroplasty (Primary Dx); History Of Falling; Primary Osteoarthritis Knee Right; Preoperative Exam Discharge Disposition: Home or Self Care 08/22/2023 2:00 PM CELLO TEACHER Office Visit Department of Orthopedic Surgery in [address] [phone] Amanda Scott APRN, C.N.PJudith, D.N.PJudith Aftercare Total Knee Arthroplasty (Primary Dx) Discharge Disposition: Home or Self Care 08/22/2023 Clinical Communication Department of Orthopedic Surgery in [address] [phone] Uriel Renner M.D. 07/21/2023 10:17 AM CELLO TEACHER - 07/21/2023 11:59 PM CELLO TEACHER Hospital Encounter Department of Radiology in [address] [phone] Uriel Renner M.D. Pain Knee Right; Arthroplasty Total Knee Replacement Status Post Right Discharge Disposition: Home or Self Care 07/21/2023 10:15 AM CELLO TEACHER Office Visit Department of Orthopedic Surgery in [address] [phone] Uriel Renner M.D. Pain Knee Right (Primary Dx); Arthroplasty Total Knee Replacement Status Post Right Discharge Disposition: Home or Self Care 07/07/2023 Abstract [place], [place] [address] [place] [phone] Provider, Historical 07/05/2023 7:46 AM CELLO TEACHER Anesthesia Event Outpatient Procedure Center in [address] [phone] Chemo Olivarez M.D. Barker, Shelly, M.D. 07/05/2023 7:35 AM CELLO TEACHER - 07/05/2023 10:05 AM CELLO TEACHER Surgery Outpatient Procedure Center in [address] [phone] Uriel Renner M.D. ROBOTIC-ASSISTED KNEE TOTAL ARTHROPLASTY 07/05/2023 6:20 AM CELLO TEACHER - 07/06/2023 1:55 PM CELLO TEACHER Hospital Encounter [facility], [facility], Third Floor [address] [place] [phone] Uriel Renner M.D. Discharge Disposition: Home or Self Care 07/05/2023 6:15 AM CELLO TEACHER Ancillary Procedure Department of General Surgery 06/26/2023 2:15 PM CELLO TEACHER Virtual Visit Preoperative Evaluation Center in [address] [phone] Uriel Renner M.D. Wagner, Amy J, R.NJudith Preanesthetic Medical Exam (Primary Dx); Pain Knee Right; Primary Osteoarthritis Knee Right Discharge Disposition: Home or Self Care 06/19/2023 11:00 AM CELLO TEACHER Education Department of Orthopedic Surgery in [address] [phone] Uriel Renner M.D. Gubash, Katherine M, R.N. Pain Knee Right; Primary Osteoarthritis Knee Right Discharge Disposition: Home or Self Care 06/19/2023 10:03 AM CELLO TEACHER - 06/19/2023 11:59 PM CELLO TEACHER Hospital Encounter Department of Radiology in [address] [phone] Uriel Renner M.D. Pain Knee Right; Primary Osteoarthritis Knee Right Discharge Disposition: Home or Self Care from Last 3 Months Immunizations Name Administration Dates Next Due H1N1 All Forms 09/04/2009 HZV (ZOSTAVAX) 12/30/2011 HepA Adult 12/15/2016,06/15/2016 Influenza high dose QV(65 ye ars or older) (PF) 11/03/2020,05/04/2020 MMR 11/30/2018 PCV13 07/15/2014 PPSV23 01/08/2016 RZV (SHINGRIX) 03/27/2019,01/16/2019 Td (Adult), adsorbed 07/05/1999 Tdap 03/22/2011 influenza high dose (65 year s or older) (PF) 05/23/2019,05/15/2018,05/10/2016, 016,04/29/2014 influenza vaccine quad (FLUZONE/FLUARIX) (6 months and older)(PF) 04/26/2017 Family History Medical History Relation Name Comments [...] Family Three times a week 04/11/2019 Attends Pentecostalism Services Not on file 04/11 Active Member [...] Comments Blood Pressure 136/76 08/24/2023 11:00 AM CELLO TEACHER Pulse 76 08/24/2023 11:00 AM CELLO TEACHER Temperature 36.2 ??C (97.2 ??F) 08/24/2023 10:[address] Respiratory Rate 14 08/24/2023 10:57 AM CELLO TEACHER Oxygen Saturation 98% 08/24/2023 10:57 AM CELLO TEACHER Inhaled Oxygen Concentration - - Weight 60 kg (132 lb 4.4 oz) 08/24/2023 10:57 AM CELLO TEACHER Height 162.8 cm (5' 4.09) 08/24/2023 10:[address] Body Mass Index 22.64 08/24/2023 10:57 AM CELLO TEACHER Plan of Treatment Upcoming Encounters Date Type Department Care Team (Late st Contact Info) Description 09/26/2023 10:30 AM CELLO TEACHER Office Visit Department of Orthopedic Surgery in [address] [phone] Amanda Scott APRN, C.N.P., D.N.P. [address] [place] [address] Discharge Disposition: Home or Self Care Health Maintenance Due Date Last Done Comments Diabetic Office Visit with F oot Exam 1945 Dilated Eye Exam 1946 Hepatitis C Screening 1945 Urine Albumin 1945 Visit: Chronic Disease, age 18+ 1946 Visit: Medicare Annual Wellness 1945 Hepatitis B Vaccines (1 of 3 - Risk 3-dose series) 2006 COVID-19 Vaccine (2022-2 4 season) 2023 08/21/2022, 05/12/2022, 12/21/2021, Additional history exists Depression Screening (Annual PHQ-2) 08/14/2023 Hemoglobin A1C 01/04/2024 07/06/2023, 03/20/2019 Creatinine Level (Kidney Fun ction Test) 08/24/2024 08/24/2023, 03/20/2019, 03/30/2018 Office Visit for Blood Press ure Check / Re-check 08/24/2024 08/24/2023 DTaP,Tdap,and Td Vaccines (3 - Td or Tdap) 03/14/2032 03/14/2022, 03/22/2011, 07/05/1999 Pneumococcal vaccine (65+ years) Completed 01/08/20 16, 07/15/2014 Hepatitis A Vaccines Completed 12/15/2016, 06/15/20 16 Zoster Vaccines Completed 03/27/2019, 12/2018, 12/30/2011 Influenza Vaccine Completed 05/12/2023, , 04/25/2021, Additional history exists Fall Risk Screen (Annual) Completed 08/24/2023 Medical Devices Implanted Type Area Geriatric Nurse Device Identifier Shelf Expiration Date Model / Serial / Lot Hardware E.G. Pins/Screws/R ods Hardware e.g. pins/screws/ rods Right: Foot Knee Implant Knee Implant Left: Knee Ins Tib Trt Ps Sz4 10 - [id number] Implanted:Qty : 1 on 07/05/2023 by Uriel Renner M.D. at [facility] Knee Implant Right: Knee Darvin 01/04/2028 [id number]-G-41 0-[id number] / / [id number] Reunuin Rsa Humeral Cup 32mm/4mm Implanted:Qty : 1 on 06/18/2019 at [facility] Shoulder Implant Darvin [id number] 03/09/2024 [id number] / / [id number] Procedures Procedure Name Priority Date/Time Associated Diagnosis Comments MANIPULATION KNEE 08/29/2023 9:2 1 PM CELLO TEACHER Pain Knee Right BASIC METABOLIC PANEL, S/P Routine 08/24/2023 11:58 AM CELLO TEACHER Preoperative Exam DX KNEE RIGHT 3 VIEWS RAD - Routine (most inpatients and all outpatients) 07/21/2023 10:32 AM CELLO TEACHER Pain Knee Right Arthroplasty Total Knee Replacement Status Post Right GLUCOSE POCT, B Routine 07/06/2023 1:06 PM CELLO TEACHER GLUCOSE POCT, B Routine 07/06/2023 8:02 AM CELLO TEACHER HEMOGLOBIN A1C, B Routine 07/06/2023 5:5 2 AM CELLO TEACHER HEMOGLOBIN, B Routine 07/06/2023 5:52 AM CELLO TEACHER GLUCOSE POCT, B Routine 07/05/2023 9:34 PM CELLO TEACHER GLUCOSE POCT, B Routine 07/05/2023 4:35 PM CELLO TEACHER PULSE OXIMETRY, CONTINUOUS Routine 07/05/2023 11:01 AM CELLO TEACHER PULSE OXIMETRY, CONTINUOUS Routine 07/05/2023 11:01 AM CELLO TEACHER LDA ANE ENDOTRACHEAL AIRWAY Routine 07/05/2023 7:54 AM CELLO TEACHER IN INJ ANES FEM NERVE W GUIDANCE Routine 07/05/2023 7:43 AM CELLO TEACHER ROBOTIC-ASSISTED KNEE TOTAL ARTHROPLASTY 07/05/2023 7:35 AM CELLO TEACHER Primary Osteoarthritis Knee Right GLUCOSE POCT, B Routine 07/05/2023 7:22 AM CELLO TEACHER ECG STAT 07/05/2023 7:10 AM CELLO TEACHER SURGERY IMAGE EXAM Routine 07/05/2023 6: [address] KNEE RIGHT WITHOUT IV CONTRAST RAD - Routine (most inpatients and all outpatients) 06/19/2023 10:25 AM CELLO TEACHER Pain Knee Right Primary Osteoarthritis Knee Right from Last 3 Months Results * Basic Metabolic Panel (08/24/2023 11:58 AM CELLO TEACHER) Potassium, P 4.5 3.6 - 5.2 mmol/L 08/24/2023 12:27 PM CELLO TEACHER CNFL Sodium, P 136 135 - 145 mmol/L 08/24/2023 12:27 PM CELLO TEACHER CNFL Chloride, P 100 98 - 107 mmol/L 08/24/2023 12:27 PM CELLO TEACHER CNFL Bicarbonate, P 28 22 - 29 mmol/L 08/24/2023 12:27 PM CELLO TEACHER CNFL Anion Gap, P 8 7 - 15 08/24/2023 12:27 PM CELLO TEACHER CNFL BUN (Blood Urea Nitrogen), P 14 6 - 21 mg/dL 08/24/2023 12:27 PM CELLO TEACHER CNFL Creatinine 0.64 0.59 - 1.04 mg/dL 08/24/2023 12:27 PM CELLO TEACHER CNFL Estimated GFR (eGFR) >90 >=60 mL/min/BSA 08/24/2023 12:27 PM CELLO TEACHER CNFL Comment: Estimated GFR calculated using the 2020 CKD_EPI creatinine equation. Calcium, Total, P 10.0 8.8 - 10.2 mg/dL 08/24/2023 12:27 PM CELLO TEACHER CNFL Glucose, P 111 70 - 140 mg/dL 08/24/2023 12:27 PM CELLO TEACHER CNFL Blood (Blood, Venous) 08/24/2023 11:58 AM CELLO TEACHER 08/24/2023 12:00 PM CELLO TEACHER Candice Barcenas APRN, C.N.P. LAB BLOOD ADD -ON Performing Organization Address City/State/RUST Co de Phone Number [facility] [address] [place] [phone], [facility] CNFL [facility] in [address] [address] * DX Knee Right 3 Views (07/21/2023 10:32 AM CELLO TEACHER) Anatomical Region Laterality Modality Lower Extremity, Knee, Muscu loskeletal RST LOS, Musculoskeletal ARZ LOS, Muskuloskeletal FLA LOS Right Digit al Radiography 07/21/2023 10:5 4 AM CELLO TEACHER Impressions 07/21/2023 10:57 AM CELLO TEACHER Images are interpreted with comparison to CT 06/29/2023. Indwelling right knee arthroplasty with components present and expected position/alignment. No periprosthetic fracture. Mild periarticular soft tissue swelling and small joint effusion. Pin tracks within the distal femur and proximal tibia. Visualized left knee arthroplasty within normal limits. Narrative 07/21/2023 10:57 AM CELLO TEACHER EXAM: DX KNEE RIGHT 3 VIEWS Procedure [...] * (ABNORMAL) Glucose, POCT (07/06/2023 1:06 PM CELLO TEACHER) Only the most recent of5 resultswithin the time period is included. Glucose, POCT, B 148(H) 70 - 140 mg/dL 07/06/2023 1:06 PM CELLO TEACHER RDWG Blood 07/06/2023 1:06 PM CELLO TEACHER 07/06/2023 1:16 PM CELLO TEACHER Generic Rals LAB POCT ORDERABLES- MANUAL Performing Organization Address City/[facility]/ZIP Co de Phone Number [facility] [address] [place] [address], [facility] RDWG [facility] [place] [phone] * (ABNORMAL) Hemoglobin (07/06/2023 5:52 AM CELLO TEACHER) Hemoglobin 9.4(L) 11.6 - 15.0 g/dL 07/06/2023 6:37 AM CELLO TEACHER RDWG Blood (Blood, Venous) 07/06/2023 5:52 AM CELLO TEACHER 07/06/2023 6:30 AM CELLO TEACHER Edy Castano APRN.N.P., D.N.P. LAB BLO OD ADD-ON Performing Organization Address [facility]/RUST Co de Phone Number [facility] [address] [place] [phone], [facility] RDWG [facility] in [address] [address] * (ABNORMAL) Hemoglobin A1c (07/06/2023 5:52 AM CELLO TEACHER) Hemoglobin A1c, B 7.2(H) 4.2 - 5.6 % 07/06/2023 6:50 AM CELLO TEACHER RDWG Comment: Hemoglobin A1c values greater than or equal to 6.5 percent are diagnostic for diabetes mellitus. ??Diagnosis should be confirmed by repeat testing. ??In diabetic patients, HbA1c goals should be discussed with healthcare provider. Blood (Blood, Venous) 07/06/2023 5:52 AM CELLO TEACHER 07/06/2023 6:30 AM CELLO TEACHER Uriel Renner M.D. LAB BLOOD ADD-ON [facility] [address] [place] [address], [facility] RDWG [facility] [place] [address] [place] [address] * LDA ANE ENDOTRACHEAL AIRWAY (07/05/2023 7:54 AM CELLO TEACHER) Narrative Evan Hernandez APRN, CRNA R.N. - 07/05/2023 7:54 AM CELLO TEACHER Evan Hernandez APRN, CRNA R.N. ? 07/05/2023 ??8:13 AM Airway Date/Time: 07/05/2023 7:54 AM Performed by: Evan Hernandez APRN, CRNA RJudithNJudith Authorized by: Chemo Olivarez M.D. ?? Patient [...] Chemo Olivarez M.D. ANESTHESIA ORDERABL ES * IN INJ ANES FEM NERVE W GUIDANCE (07/05/2023 7:43 AM CELLO TEACHER) Narrative Evan Hernandez APRN, CRNA R.NJudith - 07/05/2023 7:43 AM CELLO TEACHER Evan Hernandez APRN, CRNA R.N. ? 07/05/2023 ??8:11 AM Regional Block Date/Time: 07/05/2023 7:43 AM Performed by: Evan Hernandez APRN, CRNA R.NJudith Authorized by: Chemo Olivarez M.D. ?? Location: [...] Medications: Injection(s), anesthetic agent(s) and/or steroid; See [facility] UN[facility]ERSAL PROTOCOL All relevant documentation and testing [...] * ECG 12 Lead (07/05/2023 7:10 AM CELLO TEACHER) Ventricular Rate ECG/Min 62 BPM MUSE QRSD Interval 84 ms MUSE QT Interval 410 ms MUSE QTC Interval 416 ms MUSE R Carleton -54 degrees MUSE T Wave Carleton 10 degrees MUSE 07/05/2023 7:10 AM CELLO TEACHER 07/05/2023 9:51 AM CELLO TEACHER Impressions MUSE - 07/05/2023 7:21 AM CELLO TEACHER Normal sinus rhythm Left anterior fascicular block [...] Armendariz M.D. ECG ORDERABLES Performing Organization Address City/[facility]/ZIP Co de Phone Number MUSE NA * Non-Radiology Image-Surgery Image Exam (07/05/2023 6:15 AM CELLO TEACHER) 07/05/2023 6:13 AM CELLO TEACHER Narrative IIMS - 07/05/2023 7:50 AM CELLO TEACHER This order has been created and auto-finalized to support the import of images acquired without order. The clinical documentation to support these images can be found on the encounter that produced images. Provider Not In System IMG NON RAD IMAGI NG PROCEDURES Performing Organization Address [facility]/RUST Co de Phone Number IIMS NA * CT Knee Right without IV Contrast (06/19/2023 10:25 AM CELLO TEACHER) Anatomical Region Laterality Modality Lower Extremity, Knee, Muscu loskeletal RST LOS, Musculoskeletal ARZ LOS, Muskuloskeletal FLA LOS Right Compu jonathan Tomography 06/19/2023 11:2 2 AM CELLO TEACHER Impressions 06/19/2023 11:28 AM CELLO TEACHER Advanced knee degenerative arthritis. Narrative 06/19/2023 11:28 AM CELLO TEACHER EXAM: ??CT KNEE RIGHT WITHOUT IV CONTRAST [...] Advance Directives For more information, please contact: [phone] Documents on File Type Date Recorded Patient Baseboard Heating Installer Expl anation Advance Directives 07/07/2023 9:39 AM Robert Devlin HCPOA/ADVOCATE/AGENT/ BEAUTICIAN APPRENTICE/SURROG ATE Latest Code Status on File Code [...] Second Alternate Health Care Agent Care Teams Pediatric Neurologist Relationship Specialty Start Date End Date None Reported, Pcp PCP - General Family Medicine 07/05/23
--- OUTSIDE RECORDS SUMMARY | 2023-09-13 11:32 | XMS_ITS ---
Author Name Unknown Organization [facility] Address [address] [place] [address] Care Team Providers Care School Psychology Specialist Name Role Phone Unavailable Unavailable Unavailable Surgery Details Not on file Complications Check Surgery Details section. Procedure Estimated Blood Loss Check Surgery Details section. Procedure Findings Check Surgery Details section. Procedure Specimens Taken Check Surgery Details section.
--- OUTSIDE RECORDS SUMMARY | 2023-09-13 11:32 | XMS_ITS | Encounter Summary ---
Author Name Unknown Organization [facility] Address [address] [place] [address] Care Team Providers Care Leave Specialist Name Role Phone None Reported, Pcp Primary Care Provider Unavail able Encounter Details Date Type Department Care Team (Latest Contact Info) Description 08/29/2023 11:44 AM BAKERY MACHINE MECHANIC - 08/29/2023 12:05 PM BAKERY MACHINE MECHANIC Hospital Encounter Outpatient Procedure Center in [address] [phone] Uriel Renner M.D. [address] [place] [phone] Discharge Disposition: Home or Self Care Social History Tobacco Use Types Packs/Day Years [...] Family Three times a week 04/11/2019 Attends Judaism Services Not on file 04/11 Active Member [...] st Contact Info) Description 09/26/2023 10:30 AM BAKERY MACHINE MECHANIC Office Visit Department of Orthopedic Surgery in [address] [phone] Amanda Scott APRN, C.N.P., D.N.P. [address] [place] [phone] Discharge Disposition: Home or Self Care documented as of this encounter Procedures Procedure Name Priority Date/Time Associated Diagnosis Comments MANIPULATION KNEE 08/29/2023 9:21 PM BAKERY MACHINE MECHANIC Pain Knee Right documented in this encounter Visit Diagnoses Diagnosis Pain Knee Right- Primary documented in this encounter Admitting Diagnoses Diagnosis Pain Knee Right documented in this encounter Care Teams Leave Specialist Relationship Specialty Start Date End Date None Reported, Pcp PCP - General Family Medicine 07/05/23 documented as of this encounter
--- OUTSIDE RECORDS SUMMARY | 2023-09-13 11:33 | XMS_ITS | Encounter Summary ---
Author Name Unknown Organization [facility] Address [address] [place] [address] Care Team Providers Care Metal Melter Name Role Phone None Reported, Pcp Primary Care Provider Unavail able Encounter Details Date Type Department Care Team (Late st Contact Info) Description 07/07/2023 Abstract [place], [place] [address] [place] [address] Provider, Historical Social History Tobacco Use Types Packs/Day Years [...] Family Three times a week 04/11/2019 Attends Gnosticist Services Not on file 04/11 Active Member [...] PM CDT documented as of this encounter Plan of Treatment Upcoming Encounters Date Type Department Care Team (Late st Contact Info) Description 09/26/2023 10:30 AM MANUFACTURING SUPERVISOR 2ND SHIFT Office Visit Department of Orthopedic Surgery in [address] [phone] Amanda Scott APRN, C.N.P., D.N.P. [address] [place] [phone] Discharge Disposition: Home or Self Care documented as of this encounter Visit Diagnoses Not on filedocumented in this encounter Care Teams Metal Melter Relationship Specialty Start Date End Date None Reported, Pcp PCP - General Family Medicine 07/05/23 documented as of this encounter
--- OUTSIDE RECORDS SUMMARY | 2023-09-13 11:33 | XMS_ITS | Encounter Summary ---
Author Name Unknown Organization [facility] Address [address] [place] [address] Care Team Providers Care Glazier Metal Furniture Name Role Phone None Reported, Pcp Primary Care Provider Unavail able Encounter Details Date Type Department Care Team (Late st Contact Info) Description 08/25/2023 Clinical Communication Department of Orthopedic Surgery in [address] [phone] Uriel Renner M.D. [address] [place] [phone] Social History Tobacco Use Types Packs/Day Years [...] Family Three times a week 04/11/2019 Attends Mu-Ism Services Not on file 04/11 Active Member [...] PM CDT documented as of this encounter Miscellaneous Notes * Telephone Encounter - Faiza Paredes R.N. - 08/28/2023 11:01 AM CST Called [facility] [employer] and requested a prior auth be submitted for the CPM that was ordered from [employer]. [facility] will put in the request for this prior auth. CURER * Telephone Encounter - Faiza Paredes R.N. - 08/25/2023 11:41 AM CST Heather is requesting prior authorization team submit prior auth for CPM machine to hopefully get insurance to pay for it. She has talked to her insurance company and they said this needs to be done for them to pay for it. CURER documented in this encounter Plan of Treatment Upcoming Encounters Date Type Department Care Team (Late st Contact Info) Description 09/26/2023 10:30 AM HAM CURER Office Visit Department of Orthopedic Surgery in [address] [phone] Amanda Scott APRN, C.N.P., D.N.P. [address] [place] [phone] Discharge Disposition: Home or Self Care documented as of this encounter Visit Diagnoses Not on filedocumented in this encounter Care Teams Glazier Metal Furniture Relationship Specialty Start Date End Date None Reported, Pcp PCP - General Family Medicine 07/05/23 documented as of this encounter
--- OUTSIDE RECORDS SUMMARY | 2023-09-13 11:33 | XMS_ITS | Encounter Summary ---
Author Name Unknown Organization [facility] Address [address] [place] [address] Care Team Providers Care Service Associate Name Role Phone None Reported, Pcp Primary Care Provider Unavail able Reason for Referral * Physical Therapy (Routine) - Authorized Specialty Diagnoses / Procedures Referred By Contac t Referred To Contact Diagnoses Aftercare Total Knee Arthroplasty Amanda Scott APRN, C.N.P., D.N.P. [address] [place] [phone] Referral ID Status Reason Start Date Expiration Date Visits Requested Visits Authorized [id number] Authorized Patient Preference 08/22/2023 08/21/2024 99 99 NT CHEMIST * Outpatient (Routine) - Closed Specialty Diagnoses / Procedures Referred By Contac t Referred To Contact Anesthesiology Diagnoses Aftercare Total Knee Arthroplasty Amanda Scott APRN, C.N.P., D.N.P. [address] [place] [phone] [facility] Region Referral ID Status Reason Start Date Expiration Date Visits Re quested Visits Authorized [id number] Closed 08/22/2023 08/21/2024 1 1 NT CHEMIST * Outpatient (Routine) - Closed Specialty Diagnoses / Procedures Referred By Carley shields Referred To Contact Family Medicine Diagnoses Aftercare Total Knee Arthroplasty Amanda Scott APRN, C.N.PJudith, D.N.P. [address] [place] [phone] [facility] Region Referral ID Status Reason Start Date Expiration Date Visits Re quested Visits Authorized [id number] Closed 08/22/2023 08/21/2024 1 1 NT CHEMIST * Outpatient (Routine) - Authorized Specialty Diagnoses / Procedures Referred By Carley shields Referred To Contact Orthopedic Surgery Amanda Scott APRN, C.N.PJudith, D.N.P. [address] [place] [phone] [facility] Region Referral ID Status Reason Start Date Expiration Date V isits Requested Visits Authorized [id number] Authorized 08/22/2023 08/21/2026 1 1 NT CHEMIST Reason for Visit * Reason Comments Arthroplasty Continues to have pa in on the aspect of her leg. Also has occasional stiffness. Post-op Continues to have pa in on the aspect of her leg. Also has occasional stiffness. Follow-up Continues to have pa in on the aspect of her leg. Also has occasional stiffness. * Outpatient (Routine) - Closed Specialty Diagnoses / Procedures Referred By Carley shields Referred To Contact Orthopedic Surgery Uriel Renner M.D. [address] [place] [address] [facility] Region Referral ID Status Reason Start Date Expiration Date Visits Re quested Visits Authorized [id number] Closed 07/21/2023 07/20/2026 1 1 Encounter Details Date Type Department Care Team (Late st Contact Info) Description 08/22/2023 2:00 PM PATENT CHEMIST Office Visit Department of Orthopedic Surgery in [address] [phone] Amanda Scott APRN, C.N.P., D.N.P. [address] [place] [phone] Aftercare Total Knee Arthroplasty (Primary Dx) Discharge Disposition: Home or Self Care Social [...] Family Three times a week 04/11/2019 Attends [employer] Not on file 04/11 Active Member [...] PM CDT documented as of this encounter Progress Notes * Amanda Scott APRN, C.N.P., D.N.P. - 08/22/2023 2:00 PM CST Heather is a very pleasant 77-year-old who is almost 7 weeks status post right Isidro robotic CT-guided total knee arthroplasty. She is here today for follow-up. She has no concerns regarding infection.She is working with physical therapy on her motion. She has stopped taking her aspirin twice daily in his just using Tylenol for pain. She states she understands the prophylactic antibiotic use for antibiotics and plans to wait 6 months after her surgery for routine dental work. Physical exam-right knee with mild effusion noted. Surgical incision is well healed. She has excellent stability with valgus and varus. She has full extension flexes to 95??. She has no calf tenderness negative Homans sign. 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 We discussed manipulation of the knee which we will plan to proceed with. We discussed risks and benefits of this procedure as well as preoperative and postoperative expectations. Will plan to set her up for a right knee manipulation and we discussed the importance of improved pain control postoperatively. She agrees and understands and her questions were answered NT CHEMIST documented in this encounter Plan of Treatment Upcoming Encounters Date Type Department Care Team (Late st Contact Info) Description 09/26/2023 10:30 AM PATENT CHEMIST Office Visit Department of Orthopedic Surgery in [address] [phone] Amanda Scott APRN, C.N.P., D.N.P. [address] [place] [phone] Discharge Disposition: Home or Self Care Scheduled Referrals Name Type Priority Associated Diagnoses Orde r Schedule Orthopedic Surgery Post Op (clinic) Outpatient Referral Routine 1 Occurrences starting 08/22/2023 until 11/30/2023 Primary Care - [facility] consult (clinic) Outpatient Referral Routine Aftercare Total Knee Arthroplasty Expected: 08/22/2023 (Approximate), Expires: 11/30/2023 Pre Operative Evaluation [facility] nurse consult (clinic) Outpatient Referral Routine Aftercare Total Knee Arthroplasty 1 Occurrences starting 08/22/2023 until 11/20/2024 documented as of this encounter Visit Diagnoses Diagnosis Aftercare Total Knee Arthroplasty- Primary documented in this encounter Care Teams Service Associate Relationship Specialty Start Date End Date None Reported, Pcp PCP - General Family Medicine 07/05/23 documented as of this encounter
--- OUTSIDE RECORDS SUMMARY | 2023-09-13 11:33 | XMS_ITS | Encounter Summary ---
Author Name Unknown Organization [facility] Address [address] [place] [address] Care Team Providers Care Can Capper Name Role Phone None Reported, Pcp Primary Care Provider Unavail able Encounter Details Date Type Department Care Team (Late st Contact Info) Description 07/05/2023 6:15 AM AIR CONDITIONER INSTALLER HELPER Ancillary Procedure Department of General Surgery Social [...] Family Three times a week 04/11/2019 Attends [employer] Not on file 04/11 Active Member [...] st Contact Info) Description 09/26/2023 10:30 AM AIR CONDITIONER INSTALLER HELPER Office Visit Department of Orthopedic Surgery in [address] [phone] Amanda Scott APRN, C.N.P., D.N.P. [address] [place] [phone] Discharge Disposition: Home or Self Care documented as of this encounter Procedures Procedure Name Priority Date/Time Associated Diagnosis Comments SURGERY IMAGE EXAM Routine 07/05/2023 6: 15 AM AIR CONDITIONER INSTALLER HELPER documented in this encounter Results * Non-Radiology Image-Surgery Image Exam (07/05/2023 6:15 AM AIR CONDITIONER INSTALLER HELPER) 07/05/2023 6:13 AM AIR CONDITIONER INSTALLER HELPER Narrative IIMS - 07/05/2023 7:50 AM AIR CONDITIONER INSTALLER HELPER This order has been created and auto-finalized to support the import of images acquired without order. The clinical documentation to support these images can be found on the encounter that produced images. Provider Not In System IMG NON RAD IMAGI NG PROCEDURES IIMS NA documented in this encounter Visit Diagnoses Not on filedocumented in this encounter Care Teams Can Capper Relationship Specialty Start Date End Date None Reported, Pcp PCP - General Family Medicine 07/05/23 documented as of this encounter
--- OUTSIDE RECORDS SUMMARY | 2023-09-13 11:33 | XMS_ITS | Encounter Summary ---
Author Name Unknown Organization [facility] Address [address] [place] [address] Care Team Providers Care Stave Log Cut Off Saw Operator Name Role Phone None Reported, Pcp Primary Care Provider Unavail able Reason for Referral * Outpatient (Routine) - Closed Specialty Diagnoses / Procedures Referred By Contac t Referred To Contact Diagnoses Pain Knee Right Arthroplasty Total Knee Replacement Status Post Right Procedures DX Knee Right 3 Views Uriel Renner M.D. [address] [phone] [facility] Referral ID Status Reason Start Date Expiration Date Visits Re quested Visits Authorized [id number] Closed 07/21/2023 07/20/2024 1 1 FORM OPERATIONS DIRECTOR Reason for Visit * Outpatient (Routine) - Closed Specialty Diagnoses / Procedures Referred By Carley shields Referred To Contact Diagnoses Pain Knee Right Arthroplasty Total Knee Replacement Status Post Right Procedures DX Knee Right 3 Views Uriel Renner M.D. [address] [place] [phone] [facility] Region Referral ID Status Reason Start Date Expiration Date Visits Re quested Visits Authorized [id number] Closed 07/21/2023 07/20/2024 1 1 Encounter Details Date Type Department Care Team (Latest Contact Info) Description 07/21/2023 10:17 AM PLATFORM OPERATIONS DIRECTOR - 07/21/2023 11:59 PM PLATFORM OPERATIONS DIRECTOR Hospital Encounter Department of Radiology in [address] [place] [phone] Uriel Renner M.D. [address] [facility] [place] [phone] Pain Knee Right; Arthroplasty Total Knee Replacement Status Post Right Discharge Disposition: Home or Self Care Social [...] Family Three times a week 04/11/2019 Attends [employer] Not on file 04/11 Active Member [...] Date Recorded Nutrition: EVOO Fat Source Unknown 02/24 /2021 Nutrition: Servings of Fruits/Vegetables per Day Not [...] mouth every 6 (six) hours. 0 07/05/2023 aspirin 81 mg chewable tablet Chew 1 tablet (81 mg total) 2 (two) times a day. 90 tablet 0 07/05/2023 ondansetron (ZOFRAN) 4 mg tablet Take 1 [...] st Contact Info) Description 09/26/2023 10:30 AM PLATFORM OPERATIONS DIRECTOR Office Visit Department of Orthopedic Surgery in [address] [phone] Amanda Scott APRN, C.N.P., D.N.P. [address] [place] [phone] Discharge Disposition: Home or Self Care documented as of this encounter Procedures Procedure Name Priority Date/Time Associated Diagnosis Comments DX KNEE RIGHT 3 VIEWS RAD - Routine (most inpatients and all outpatients) 07/21/2023 10:32 AM PLATFORM OPERATIONS DIRECTOR Pain Knee Right Arthroplasty Total Knee Replacement Status Post Right documented in this encounter Results * DX Knee Right 3 Views (07/21/2023 10:32 AM PLATFORM OPERATIONS DIRECTOR) Anatomical Region Laterality Modality Lower Extremity, Knee, Muscu loskeletal RST LOS, Musculoskeletal ARZ LOS, Muskuloskeletal FLA LOS Right Digit al Radiography 07/21/2023 10:5 4 AM PLATFORM OPERATIONS DIRECTOR Impressions 07/21/2023 10:57 AM PLATFORM OPERATIONS DIRECTOR Images are interpreted with comparison to CT 06/29/2023. Indwelling right knee arthroplasty with components present and expected position/alignment. No periprosthetic fracture. Mild periarticular soft tissue swelling and small joint effusion. Pin tracks within the distal femur and proximal tibia. Visualized left knee arthroplasty within normal limits. Narrative 07/21/2023 10:57 AM PLATFORM OPERATIONS DIRECTOR EXAM: DX KNEE RIGHT 3 VIEWS Procedure [...] Renner M.D. IMG DIAGNOSTIC NILS GING PROCEDURES documented in this encounter Visit Diagnoses Diagnosis Pain Knee Right Arthroplasty Total Knee Replacement Status Post Right documented in this encounter Care Teams Stave Log Cut Off Saw Operator Relationship Specialty Start Date End Date None Reported, Pcp PCP - General Family Medicine 07/05/23 documented as of this encounter
--- OUTSIDE RECORDS SUMMARY | 2023-09-13 11:33 | XMS_ITS | Encounter Summary ---
Author Name Unknown Organization [facility] Address [address] [place] [address] Care Team Providers Care Children'S Tutor Name Role Phone None Reported, Pcp Primary Care Provider Unavail able Reason for Referral * Outpatient (Routine) - Closed Specialty Diagnoses / Procedures Referred By Contkendra t Referred To Contact Orthopedic Surgery Amanda Scott APRN, C.N.P., D.N.P. [address] [place] [address] [facility] Region Referral ID Status Reason Start Date Expiration Date Visits Re quested Visits Authorized [id number] Closed 07/05/2023 07/04/2026 1 1 Scheduling Instructions Ordered images/tests are associated with this appointment. 2 week follow up TRUSS DETAILER Encounter Details Date Type Department Care Team (Latest Contact Info) Description 07/05/2023 6:20 AM ROOF TRUSS DETAILER - 07/06/2023 1:55 PM ROOF TRUSS DETAILER Hospital Encounter [facility], Third Floor [address] [place] [address] Uriel Renner M.D. [address] [place] [address] Discharge Disposition: Home or Self Care Social [...] Family Three times a week 04/11/2019 Attends [employer] Services Not on file 04/11 Active Member [...] PM CDT documented as of this encounter Last Filed Vital Signs Vital Sign Reading Time Taken Comments Blood Pressure 136/63 07/06/2023 12:56 PM ROOF TRUSS DETAILER Pulse 87 07/06/2023 12:56 PM ROOF TRUSS DETAILER Temperature 36.7 ??C (98.1 ??F) 07/06/2023 12:[address] Respiratory Rate 18 07/06/2023 12:56 PM ROOF TRUSS DETAILER Oxygen Saturation 97% 07/06/2023 12:56 PM ROOF TRUSS DETAILER Inhaled Oxygen Concentration - - Weight 64.2 kg (141 lb 8.6 oz) 07/06/2023 5:30 A M ROOF TRUSS DETAILER Height 165.1 cm (5' 5) 07/05/2023 10:58 AM ROOF TRUSS DETAILER Body Mass Index 23.55 07/05/2023 10:58 AM ROOF TRUSS DETAILER documented in this encounter Discharge Summaries * Marsha Andrade P.A.-C. - 07/06/2023 1:55 PM CST Name: Heather Harrell Birthdate: 1945 [facility] Admission Date: 07/05/2023 Discharge Date: 07/06/23 PHYSICIAN???s DISCHARGE / TRANSFER ORDERS DISCHARGE TO: Home MEDICATIONS: For discharge medications please see: Patient Discharge Medication Reconciliation on [facility] ADMITTING DIAGNOSIS: Primary Osteoarthritis Knee Right [M17.11] SECONDARY DIAGNOSIS: Patient Active Problem List Diagnosis Pain Shoulder Right Primary Osteoarthritis Shoulder Right Hyperlipidemia Diabetes Mellitus Type 2 Without Complication (HCC) Hypothyroidism Insomnia Constipation Polyp Colon Adenomatous Primary Osteoarthritis Knee Left Primary Osteoarthritis Knee Right Pain Chest Nevus Pigmented Encounter For Other Orthopedic Aftercare Arthroplasty Total Shoulder Replacement Status Post Right DISCHARGE DIAGNOSIS: Primary Osteoarthritis Knee Right [M17.11] HOSPITAL COURSE: Patient was admitted following uncomplicated Robotic-assisted RTKA. Patient remained medically stable post-op, PT consulted and worked with patient during hospital stay. Hospitalist consulted for co-management of medical conditions. It was medically recommended patient receive aspirin 81 mg bid x 6 weeks prophylaxis for DVT which was started on POD #2. Patient is deemed appropriate for discharge to home on POD #1 when pain controlled adequately, and PT and Hospitalist clear. Complications: None Discharge hemoglobin: Lab Results Component Value Date HGB 9.4 (L) 07/06/2023 Discharge exam - A&O x 3, NAD Dressing c/d/i. CMS intact. DIET: Resume pre-op diet CONDITION ON DISCHARGE: Stable LEVEL OF ACTIVITY: WBAT RLE with assist. Ok to shower with Aquacel dressing on, remove POD #7 and Ok to shower. No soaking/baths/hot tubs/swimming pools. APPOINTMENTS: With Orthopedic Department in 10-14 days REFERRALS: Outpatient physical therapy per protocol DISCHARGE SUMMARY DICTATED: See Hospital Course information above. PROCEDURE(S) PERFORMED: Robotic-assisted RTKA TRUSS DETAILER documented in this encounter Medications at Time [...] 0 07/05/2023 documented as of this encounter Progress Notes * Marsha Andrade P.A.-C. - 07/06/2023 12:45 PM CST Ortho Post-op Check 07/06/2023 SUBJECTIVE POD #1 from Robotic-Assisted Right TKA Patient seen at bedside, doing well, pain controlled, denies CP/SOB. Dr. Renner called this patient this morning to discuss her surgery and see how she's doing on this Day. Patient expressed concern she is having a feeling of instability of the right knee only, as if her knee is going to give out. Patient has been up with PT/OT and that went well. Block has worn off. She reports satisfactory pain control and is sitting on the edge of the bed in her street clothes waiting for her , with her knee bent at nearly 90 degrees. She appears comfortable. We also discussed that she has seen Dr. Montenegro in the past for her back, and that back issues can have similar symptoms. We also discussed give-way sensations related to post-op changes, the block wearing off, pre-op weakness/deconditioning, etc. Advised patient to use her walker whenever ambulating until PT clears her. OBJECTIVE PHYSICAL EXAMINATION AFVSS AO, NAD, pleasant, follows commands without difficulty. Dressings on Right knee c/d/i. Able to flex/ext digits Right foot and df/pf Right ankle, fires FHL/EHL/TA. Drawer testing, varus and valgus testing all negative for instability. Reports baseline SILT over sp/dp/s/s/t nn distribs BLE. 1+ DP pulse palpable right foot. Hgb 9.4 ASSESSMENT / PLAN POD #1 from Robotic-Assisted Right TKA *ABLA noted, patient asymptomatic. Patient to follow-up with Primary Care. *Hospitalist consulted, Ortho appreciates their participation in this patient's care. Dr. Renner discussed d/c orders with the Hospitalist earlier per Ortho HOLE FILLER. * Cryo-cuff/ice to go home with patient. * WBAT RLE, ROM as tolerated R knee *Advised patient to use her walker whenever ambulating until PT clears her. Reassurance given in light of stable knee exam, motor testing intact RLE. * DVT prophylaxis: mechanical SCDs while in-house, Aspirin 81 mg BID starting POD#1 and continue x 6 weeks. * Ok to discharge to home pending pain control, PT/OT and Hospitalist clearance. *Nursing staff contacted me that all Pharmacies are closed on (today) and Heather isnot able to get her pain medications. Nursing staff discussed with Hospital Pharmacist who explained the only way to d/c with pain medicine would be to contact the ER Physician to see if they would be willing to send Heather home with pain medication from their system. ER Physician sent patient withOxycodone 5 mg #6. *Patient requesting her pain medications be changed from [facility] as prescribed early by Dr. Renner team/Hospitalist to [facility]. I will resend those prescriptions on her behalf. I did also call all [facility] and none were open today. Ciaran Andrade PA-C TRUSS DETAILER * Magy Ritter P.T. - 07/06/2023 8:58 AM CST Physical Therapy Inpatient Treatment By co-signing this note, the provider certifies the therapy being provided to this patient is reasonable and necessary for the diagnosis or treatment of this patient. SUBJECTIVE Patient's Name: Heather Peñaetler Referring/Attending Provider: Uriel Renner M.D. Medical Diagnosis: Primary Osteoarthritis Knee Right [M17.11] Reason for Referral: Status post right TKA Onset Date: 07/05/23 Payor: MEDICARE / Plan: MEDICARE A AND B / Product Type: Medicare / Additional Staff Present During Session: SANTANA Johnston present during stair negotiation for safety. Activity Orders (From admission, onward) None Precautions Weight Bearing Status: Weightbearing as tolerated Other Precautions: Postop fall precaution Fall Risk (65 and older) Fall in the last 12 months: No Are you fearful of falling?: No OBJECTIVE Pain Ratin/10 on a 0-10 point scale, location: Knee Pain Interventions: Therapy/Exercise Measures - Tools AM-[facility] Basic Mobility (V.2) How much help from another person do you currently need???If the patient hasn't done an activity recently, how much help from another person do you think he/she would needif he/she tried? 1. Turning from your back to your side while in a flat bed without using bedrails?: None 2. Moving from lying on your back to sitting on the side of a flat bed without using bedrails?: None 3. Moving to and from a bed to a chair (including a wheelchair)?: None 4. Standing up from a chair using your arms (e.g., wheelchair, or bedside chair)?: None 5. To walk in hospital room?: None 6. Climbing 3-5 steps with a railing?: A Little AM-PAC Basic Mobility (V.2) Raw Score: 23 AM-PAC Basic Mobility (V.2) Standardized Score: 50.88 AM-PAC 6 Clicks Interpretation: Clinicians answer the -[facility] Inpatient Short Form based on observed patient activity and/or clinical judgement (ie. Patient can be scored without physically performing each activity). According to raw scoring guidelines: Those going to home had an average score of 20.1 Those going home with home care had an average score of 17.9 Those going to group home facility had an average score of 14 Those going to inpatient rehab facility had an average score of 13.6 Those going to a detention care facility had an average score of 11.5 Bed Mobility - Supine to Sit # of Assistants: 1 Level of Assistance: Supervision/Set-up, Independent Device: None Sit to Stand Transfers # of Assistants: 1 Transfer Surface: Bed, Wheelchair Transfer Equipment: Gait belt, Front wheeled walker Level of Assistance: Supervision/set-up Assessment/Delivery: Assessed, Educated Comments: cues for safer hand placement and protective extension of surgical limb, patient tends tomove quickly, verbal cues to move slow Stand to Sit Transfers # of Assistants: 1 Transfer Surface: Wheelchair, Chair Transfer Equipment: Gait belt, Front wheeled walker Level of Assistance: Independent, Supervision/set-up Assessment/Delivery: Assessed, Educated, Instructed Comments: cues for safer hand placement and protective extension of surgical limb, patient tends tomove quickly, verbal cues to move slow Gait Assessment/Training Distance (m): 20 m Surface: Even, Smooth/hard Device: Gait belt, Front-wheeled walker Level of Assistance: Contact guard assistance, Supervision/Set-up Quality/Pattern: Decreased stance time R, Decreased heel strike Stability: Patient had one instance of R knee buckling during gait, able to self correct with UE support on 2ww. She reports that walking on heel decreases chance of knee buckling. Stairs/Curb # Stairs: 4 Rails: 2 Device: Gait belt # of Assistants: 1 (nurseVickie for safety) Level of Assistance: Contact guard assistance, Supervision/Set-up Stair Navigation Pattern-Ascending: Step-to pattern Stair Navigation Lead Foot-Ascending: Left Stair Navigation Pattern-Descending: Step-to pattern Stair Navigation Lead Foot-Descending: Right Quality of Stair Negotiation: Good stair negotiation, no instances of R knee buckling during stairs, PT was CGA at R knee for safety Stability: Good stability, no instance of R knee buckling during stairs. Did suggest that patient'sspouse is there during stairs to aid when/if needed. Patient verbalized understanding. Exercise - Protocol Total Joints Exercise: Total knee Total Joints Exercise Comments: educated and instructed patient in ankle pumps x10 reps and quad sets with 5 second holds x10 reps to be performed every waking hour; heel slides x10 reps and heel prop x30-60 seconds working towards 5 minutes 2-3x/day. Patient verbalized and demonstrates understanding Upon arrival in room patient was found supine in bed, needs including call preston/light in reach, cold pack in place . Following treatment patient was left seated in the chair, needs including call preston/light in reach, Fauzia Mcdermott, OT present . Assessment Discharge Considerations: Barriers to Discharge Home: None Discharge Therapy Needs - PT: Ongoing skilled physical therapy (OP PT set up in [place], [place]) Level of Care Needed - PT: Assistance with walking and moving around the home, Assistance with stairs (SBA for safety) Equipment Recommended - PT: Front-wheeled walker Clinical Impression: Patient was admitted 07/05/2023 with a diagnosis of: Primary Osteoarthritis Knee Right [M17.11]. Currently, patient presents with limitations including decreased knowledge of condition, decreased ROM, surgical pain, and weakness. Patient requires SBA for safety with stairs, transfers and ambulation. Education was provided regarding evaluative findings, diagnosis, prognosis, potential risks and benefits of rehabilitation interventions. The treatment plan and discharge recommendations may be modified based upon pt response to treatment. Rehab Potential: Good Comorbid Conditions: None Personal Factors: Age Clinical Presentation: Stable Examination elements: 1-2 Clinical Decision Making: Low complexity clinical decision making Functional Goals and Timeframes: PT Goal #1: Independent safe with home exercise and self-care program PT Goal #1 Date: 07/06/23 PT Goal #1 Status: Achieved PT Goal #2: Able to ambulate 20-30 meters with a wheeled walker and standby assist weightbearing astolerated PT Goal #2 Date: 07/06/23 PT Goal #2 Status: Achieved PT Goal #3: Able to ascend and descend stairs with the use of a single railing and assist of 1 PT Goal #3 Status: Achieved Plan Therapy Attestation: Physical Therapy Attestation Statement: Patient agrees with the plan of care and goals. Plan: Continue with current plan PT Amount: 1 visit per day PT Inpatient Duration : Until goals are met or hospital discharge Inpatient PT Received On Date: 07/06/23 Requires Inpatient Follow-Up: No Plan for next session: NA. DC from PT this date. Physical Therapy Dismissal Snapshot Patient was seen 2 visit(s) for s/p R TKA on 07/05/[address] Renner Inpatient goals: met Please see last progress note for status. Patient to dismiss to home with outpatient therapy set up in [place], [place] to address remaining impairments of range of motion, strength, and pain and mobility deficits of transfers and gait PT Plan Comments: DC from PT this date, will DC home with spouse and has OP PT set up in [place], [place] Treatment/Interventions: Therapeutic exercise, Gait training, Therapeutic functional activity Time Spent with Patient Therapeutic Interventions Gait Training (min): 10 min Therapeutic Activity (min): 8 min Therapeutic Exercise (min): 5 min Time Tracking Total Timed Units (min): 23 min Total Treatment Time (min): 23 min TRUSS DETAILER * Joey Davis P.T. - 07/05/2023 2:23 PM CST Physical Therapy Inpatient Evaluation/Treatment By co-signing this note, the provider certifies the therapy being provided to this patient is reasonable and necessary for the diagnosis or treatment of this patient. SUBJECTIVE Patient's Name: Heather Peñaetler Referring/Attending Provider: Uriel Renner M.D. Medical Diagnosis: Primary Osteoarthritis Knee Right [M17.11] Reason for Referral: Status post right TKA Onset Date: 07/05/23 Payor: MEDICARE / Plan: MEDICARE A AND B / Product Type: Medicare / PERTINENT MEDICAL / SURGICAL HISTORY: Patient Active Problem List Diagnosis Pain Shoulder Right Primary Osteoarthritis Shoulder Right Hyperlipidemia Diabetes Mellitus Type 2 Without Complication (HCC) Hypothyroidism Insomnia Constipation Polyp Colon Adenomatous Primary Osteoarthritis Knee Left Primary Osteoarthritis Knee Right Pain Chest Nevus Pigmented Encounter For Other Orthopedic Aftercare Arthroplasty Total Shoulder Replacement Status Post Right Past Surgical History: Procedure Laterality Date ARTHROPLASTY TOTAL REVERSE SHOULDER Right 06/18/2019 Procedure: ARTHROPLASTY TOTAL REVERSE SHOULDER; Surgeon: Uriel Renner M.D.; Location: [facility] OR COLONOSCOPY 2017 ELBOW FRACTURE SURGERY ESOPHAGOGASTRODUODENOSCOPY 2017 Erosive gastropathy EYE SURGERY Repair of Retinal defect by laser photocoagulation EYE SURGERY Cataract removal HYSTERECTOMY 1984 JOINT REPLACEMENT left knee arthroplasty PARTIAL HYSTERECTOMY ROTATOR CUFF REPAIR Right ROTATOR CUFF REPAIR Left TOE SURGERY Right Prior Function/Occupational Profile: Prior Mobility/Functional Transfers Level of Brandon: Independent Prior Function/Occupational Profile Lives With: Spouse ADL Assistance: Independent IADL/Homemaking Assistance: Independent Driving: Independent Occupational Role: Retired Home Living Type of Home: House Home Layout: Split-level Home Access: Stairs to enter with rails Entrance Stairs: Number of Steps: 6 stairs to landing followed by 6 stairs to main living area. Unilateral rail. Home Equipment Gait Devices Owned: Front-wheeled walker Family/Caregiver Present: No Patient/Caregiver Goals: Discharge home with with outpatient physical therapy in [place] [facility] (From admission, onward) None Precautions Weight Bearing Status: Weightbearing as tolerated Other Precautions: Postop fall precaution Fall Risk (65 and older) Fall in the last 12 months: No Are you fearful of falling?: No OBJECTIVE Patient denies pain but reports some nausea. Nursing provided antinausea medication prior to therapy Cognition Orientation: Oriented X4 Safety/Judgment: Addressed, no concerns noted Bed Mobility - Supine to Sit # of Assistants: 1 Level of Assistance: Supervision/Set-up Device: None Sit to Stand Transfers # of Assistants: 1 Transfer Surface: Bed Transfer Equipment: Gait belt, Front wheeled walker Level of Assistance: Supervision/set-up Assessment/Delivery: Assessed, Educated Comments: Instruction in proper hand placement prior to standing Stand to Sit Transfers # of Assistants: 1 Transfer Surface: Chair Transfer Equipment: Gait belt, Front wheeled walker Level of Assistance: Supervision/set-up Assessment/Delivery: Assessed, Educated Comments: Instructed in proper hand placement prior to sitting Patient needed initiated transfers nonweightbearing but was encouraged to weightbear as tolerated with upper extremity support of walker. Patient reported in therapists observed patient's knee buckling when attempting to weightbear. Patient then completed a pivot transfer to the chair. Nursing was informed of the situation. Strength - Upper Extremity Screen: Addressed, no concerns noted Strength - Lower Extremity Screen Comments: Past lower extremity strength screen to initiate mobility. ROM - Upper Extremity Screen: Addressed, no concerns noted ROM - Lower Extremity Screen: Impaired right Team Communication: Patient's nurse was contacted and patient's status was discussed Upon arrival in room patient was found supine in bed, needs including call preston/light in reach. Following treatment patient was left long sitting in recliner chair, needs including call preston/light inreach. Assessment Discharge Considerations: Discharge Therapy Needs - PT: Ongoing skilled physical therapy Level of Care Needed - PT: Assistance with walking and moving around the home, Assistance with transfers (Comment), Assistance with stairs Equipment Recommended - PT: Front-wheeled walker Clinical Impression: Patient is a 77 y.o. who has been hospitalized 0 day(s) with an admitting diagnosis of: Primary Osteoarthritis Knee Right [M17.11]. Prior to hospitalization patient was completing daily activities independently but limited by pain.Currently, patient presents with impairments including inhibited quads/decreased strength, limited range of motion and anticipated postop pain and some postop nausea resulting in the following functional deficits: Need for assistance with bed mobility, transfers, and gait. Rehab potential: Patient has Good potential to achieve established physical therapy goals within the time frame outlined below. Comorbid Conditions: None Personal Factors: Age Clinical Presentation: Evolving Examination elements: 1-2 Clinical Decision Making: Low complexity clinical decision making Functional Goals and Timeframes: PT Goal #1: Independent safe with home exercise and self-care program PT Goal #1 Date: 07/06/23 PT Goal #2: Able to ambulate 20-30 meters with a wheeled walker and standby assist weightbearing astolerated PT Goal #2 Date: 07/06/23 PT Goal #3: Able to ascend and descend stairs with the use of a single railing and assist of 1 Plan Therapy Attestation: Physical Therapy Attestation Statement: Patient agrees with the plan of care and goals. Plan: Plan of care initiated PT Frequency: PT Amount: 2 visits per day PT Duration: Until goals are met or hospital discharge Inpatient PT Received On Date: 07/05/23 Requires Inpatient Follow-Up: Yes Next Inpatient Appointment: 07/06/23 Plan for next session: Treatment interventions may include: Treatment/Interventions: Therapeutic exercise, Gait training, Therapeutic functional activity Time Spent with Patient Evaluations PT Eval - Low Complexity: 15 min Therapeutic Interventions Therapeutic Activity (min): 10 min Time Tracking Total Timed Units (min): 10 min Total Treatment Time (min): 25 min TRUSS DETAILER * Jose Roy Pharm.D., R.Ph. - 07/05/2023 2:02 PM CST Images from the original note were not included. Pharmacy Admission Progress Note Patient was admitted on 07/05/2023 6:20 AM for Primary Osteoarthritis Knee Right [M17.11]. OBJECTIVE Problem List Digestive 1. Constipation 2. Polyp Colon Adenomatous Overview Overview: Colonoscopy 10/2013 polyp repeat in 5 years Nervous 3. Pain Shoulder Right Overview Added automatically from request for surgery [id number] 4. Pain Chest Musculoskeletal 5. Primary Osteoarthritis Shoulder Right Overview Added automatically from request for surgery [id number] 6. Primary Osteoarthritis Knee Left 7. * (Principal) Primary Osteoarthritis Knee Right Endocrine/Metabolic 8. Hyperlipidemia 9. Diabetes Mellitus Type 2 Without Complication (HCC) 10. Hypothyroidism Sleep 11. Insomnia Other 12. Nevus Pigmented 13. Encounter For Other Orthopedic Aftercare 14. Arthroplasty Total Shoulder Replacement Status Post Right New Hospital orders - Home medications changed and stopped by provider medication reconciliation: New bisacodyL suppository 10 mg (DULCOLAX) enoxaparin injection 40 mg (LOVENOX) fentaNYL injection 25 mcg (SUBLIMAZE) haloperidol lactate injection 1 mg (HALDOL) HYDROmorphone injection 0.5 mg (DILAUDID) ketorolac injection 15 mg (TORADOL) Lactated Ringer's naloxone injection 0.2 mg ondansetron (PF) injection 4 mg (ZOFRAN) oxyCODONE IR tablet 5 mg (ROXICODONE) OR oxyCODONE IR tablet 10 mg (ROXICODONE) polyethylene glycol powder packet 1 packet (MIRALAX) prochlorperazine injection 5 mg (COMPAZINE) sennosides-docusate sodium 8.6-50 mg per tablet 1 tablet (SENOKOT-S) traMADoL tablet 50 mg (ULTRAM) OR traMADoL tablet 100 mg (ULTRAM) Changed acetaminophen tablet 1,000 mg (TYLENOL) - Dose changed from 500 mg to 1,000 mg. Frequency changed from Every 6 hours PRN to Every 6 hours. Stopped aspirin 81 mg chewable tablet calcium carbonate (TUMS) 500 mg (200 mg calcium) chewable tablet cholecalciferol (Vitamin D3) 50 mcg (2,000 Unit) tablet cinnamon bark 500 mg capsule cranberry 500 mg capsule cyanocobalamin (vitamin B-12) 500 mcg tablet gabapentin (NEURONTIN) 100 mg capsule magnesium oxide 500 mg tablet tablet metFORMIN XR (GLUCOPHAGE-XR) 500 mg 24 hr tablet rosuvastatin (CRESTOR) 5 mg tablet TURMERIC ORAL Medications stopped during pharmacy medication history interview: Discontinued Medications Reason for Discontinue omega-3 fatty acids-fish oil 300-1,000 mg capsule Therapy completed oxybutynin (DITROPAN) 5 mg tablet Therapy completed estradioL (ESTRACE) 0.1 mg/g (0.01%) vaginal cream Therapy completed Hospitalist/Provider reviewed BOBBIN DISKER medications: NO, will notify consulted hospitalist service Patient own medications: n/a Current Anti-Coagulation and Anti-Platelet Medications Medication Dose Route Last Rate Last Admin [START ON 07/06/2023] enoxaparin 40 mg subcutaneous Antibiotics None Microbiology Results (last 10 days) No results found for the last 240 hours. Stress Ulcer Prophylaxis: n/a Creatinine clearance cannot be calculated (Patient's most recent lab result is older than the maximum 7 days allowed.) Recent Labs 07/05/23 0722 GLUCOSEPOC 163 H No results for input(s): WBC, HGB, HCT, PLT, INR, PT, APTT in the last 24 hours. VITAL SIGNS: Vitals: 07/05/23 1058 07/05/23 1121 07/05/23 1236 07/05/23 1343 BP: 160/89 158/77 140/58 (!) 183/102 Temp: (!) 35.4 ??C (!) 35.5 ??C (!) 35.9 ??C (!) 35.7 ??C Pulse: 63 67 66 64 Heart Rate: Resp: 16 Weight: 64.4 kg SpO2: 97% 93% 94% 96% Temp (24hrs), Av.9 ??C, Min:35.4 ??C, Max:36.3 ??C Weight change: I/O 07/03 0707/04 0700 11/21 0701 11/22 0700 11/22 0701 11/23 0700 P.O. 100 Maintenance IV 1000 Total Intake(mL/kg) 1100 (17.1) Urine (mL/kg/hr) 250 (0.6) Blood 100 Total Output 350 Net +750 Height: 165.1 cm Admission Weight: 63.5 kg Weight: 64.4 kg Weight change since admission: 0.9 kg BMI (Calculated): 23.6 kg/m?? [place] Body Weight (Calculated) : 56.9 kg % [place] Body Weight: 113 % IBW Adjusted Body Weight : 58.8 Kg Vitals: 07/05/23 1121 07/05/23 1340 07/05/23 1343 Pain Score: 0 - No pain 0 - No pain 0 - No pain Pain Meds acetaminophen tablet 1,000 mg (TYLENOL) (Completed) acetaminophen tablet 1,000 mg (TYLENOL) celecoxib capsule 200 mg (CeleBREX) (Completed) fentaNYL injection 25 mcg (SUBLIMAZE) haloperidol lactate injection 1 mg (HALDOL) HYDROmorphone injection 0.5 mg (DILAUDID) ketorolac injection 15 mg (TORADOL) oxyCODONE IR tablet 10 mg (ROXICODONE) Linked Group 1: See Hyperspace for full Linked Orders Report. oxyCODONE IR tablet 5 mg (ROXICODONE) Linked Group 1: See Hyperspace for full Linked Orders Report. traMADoL tablet 100 mg (ULTRAM) Linked Group 2: See Hyperspace for full Linked Orders Report. traMADoL tablet 50 mg (ULTRAM) Linked Group 2: See Hyperspace for full Linked Orders Report. Patient's preferred pharmacy is: [facility] [address] [facility] [address] [facility] [address] [id number] - [place], [place] - [address] AT [facility] [address] [facility] [id number] [id number] - [place], [place] - [address] [address] [address] [place] [address] ASSESSMENT / PLAN Surgery Information This Encounter Past and Present Procedures (07/05/2022 to Today) Date Procedures Providers Loc / Dept 07/05/2023 ROBOTIC-ASSISTED KNEE TOTAL ARTHROPLASTY Uriel Renner M.D.Amanda Scott APRN, C.N.P., D.N.P. [facility] OR Post-Op cares following the above procedure: discharge per Orthopedic service Antibiotic coverage: no orders post-op, I've contacted surgery team for clarification VTE prophylaxis: Lovenox 40 mg SC daily starting POD#1 in the AM has been ordered Pain management: last recorded pain score 0/10 continue scheduled PO Tylenol and IV Toradol as ordered continue PRN PO oxycodone and tramadol - may consider only 1 drug at d/c continue PRN IV Dilaudid Bowel meds: continue scheduled and PRN as ordered BOBBIN DISKER medications: consulted hospitalist service will review and order Changes to medications anticipated at discharge: TBD Jose Roy Pharm.D., R.Ph. The recommendations contained in this note are based on information available at the time of documentation and may not reflect changes in the care plan discussed after the time of signing. TRUSS DETAILER * Jose Roy Pharm.D., R.Ph. - 07/05/2023 2:01 PM CST Images from the original note were not included. Admission Medication History Note Adherence issues: No concerns Prior to Admission Medications Med List Status: Pharmacy/RN Complete Set By: Jose Roy Pharm.D., R.Ph. at 07/05/2023 2:01PM Status Comment 07/05/2023 2:01 PM Medication dispense history and [facility] BOBBIN DISKER medication list reviewed face to face with patient this afternoon. 07/05/23 2:01 PM ROOF TRUSS DETAILER Taking? Last Dose Informant Start Date End Date LT acetaminophen (TYLENOL) 500 mg tablet 07/04/2023 at PM Self 06/19/19 -- Take 1 tablet (500 mg total) by mouth every 6 (six) hours as needed for mild pain or score 1-3 of 10. aspirin 81 mg chewable tablet 06/27/2023 at AM Self 10/07/11 -- Chew 81 mg daily. calcium carbonate (TUMS) 500 mg (200 mg calcium) chewable tablet Past Month at PRN Self -- -- Chew 1 tablet 3 (three) times a day as needed for indigestion or heartburn. cholecalciferol (Vitamin D3) 50 mcg (2,000 Unit) tablet Past Week at holding for surgery Self -- -- Take 50 mcg by mouth daily. cinnamon bark 500 mg capsule Past Week at holding for surgery Self -- -- Take 1,000 mg by mouth daily. cranberry 500 mg capsule Past Week at holding for surgery Self -- -- Take 500 mg by mouth daily. cyanocobalamin (vitamin B-12) 500 mcg tablet Past Week at holding for surgery Self -- -- Take 500 mcg by mouth daily. gabapentin (NEURONTIN) 100 mg capsule Past Week at holding for surgery Self, External Chart 11/06/19 -- Take 1 capsule (100 mg total) by mouth 3 (three) times a day as needed (Pain). magnesium oxide 500 mg tablet tablet Past Week at holding for surgery Self -- -- Take 1 tablet by mouth daily. metFORMIN XR (GLUCOPHAGE-XR) 500 mg 24 hr tablet 07/04/2023 at AM Self, External Chart 05/21/19 -- Take 1,000 mg by mouth 2 (two) times a day with meals. rosuvastatin (CRESTOR) 5 mg tablet 07/04/2023 at HS Self, External Chart 06/04/19 -- Take 5 mg by mouth at bedtime. TURMERIC ORAL Past Week at holding for surgery Self -- -- Take 500 mg by mouth daily. Medications Discontinued During This Encounter Medication Reason povidone-iodine 0.25% in NaCl 0.9% sterile irrigation solution Patient Discharge ROPivacaine (PF) 100 mg, EPINEPHrine 50 mcg, ketorolac 15 mg in NaCl 0.9% 60 mL injection (ARTHROPLASTY BLOCK 50-74.9 kg) Patient Discharge sodium chloride 0.9 % injection 3 mL Patient Transfer sodium chloride 0.9 % injection 10 mL Patient Transfer sodium chloride 0.9 % injection 3 mL Patient Transfer lidocaine 10 mg/mL (1 %) injection 1 mL (XYLOCAINE) Patient Transfer sodium chloride 0.9 % injection 3 mL Patient Transfer sodium chloride 0.9 % injection 10 mL Patient Transfer sodium chloride 0.9 % injection 3 mL Patient Transfer metoprolol tablet 12.5 mg (LOPRESSOR) Patient Transfer dexAMETHasone injection 4 mg (DECADRON) Patient Transfer insulin aspart U-100 injection 0-8 Units (NovoLOG FlexPen) Patient Transfer Lactated Ringer's ROPivacaine (PF) 100 mg, EPINEPHrine 50 mcg, ketorolac 15 mg in NaCl 0.9% 60 mL injection (ARTHROPLASTY BLOCK 50-74.9 kg) scopolamine base 1 mg over 3 days 1 patch (TRANSDERM SCOP) dexAMETHasone injection 4 mg (DECADRON) omega-3 fatty acids-fish oil 300-1,000 mg capsule Therapy completed oxybutynin (DITROPAN) 5 mg tablet Therapy completed estradioL (ESTRACE) 0.1 mg/g (0.01%) vaginal cream Therapy completed Jose Roy Pharm.D., R.Ph. TRUSS DETAILER documented in this encounter Consult Notes * Fauzia Medley, O.Timoteo. - 07/06/2023 9:24 AM CST Consults Occupational Therapy Inpatient Evaluation/Treatment By co-signing this note, the provider certifies the therapy being provided to this patient is reasonable and necessary for the diagnosis or treatment of this patient. SUBJECTIVE Patient's Name: Heather Harrell Referring/Attending Provider: Uriel Renner M.D. Medical Diagnosis: Primary Osteoarthritis Knee Right [M17.11] Reason for Referral: OT eval and treat s/p R TKA Onset Date: 07/05/23 Payor: MEDICARE / Plan: MEDICARE A AND B / Product Type: Medicare / PERTINENT MEDICAL / SURGICAL HISTORY: Patient Active Problem List Diagnosis Pain Shoulder Right Primary Osteoarthritis Shoulder Right Hyperlipidemia Diabetes Mellitus Type 2 Without Complication (HCC) Hypothyroidism Insomnia Constipation Polyp Colon Adenomatous Primary Osteoarthritis Knee Left Primary Osteoarthritis Knee Right Pain Chest Nevus Pigmented Encounter For Other Orthopedic Aftercare Arthroplasty Total Shoulder Replacement Status Post Right Past Surgical History: Procedure Laterality Date ARTHROPLASTY TOTAL REVERSE SHOULDER Right 06/18/2019 Procedure: ARTHROPLASTY TOTAL REVERSE SHOULDER; Surgeon: Uriel Renner M.D.; Location: [facility] OR COLONOSCOPY 2017 ELBOW FRACTURE SURGERY ESOPHAGOGASTRODUODENOSCOPY 2017 Erosive gastropathy EYE SURGERY Repair of Retinal defect by laser photocoagulation EYE SURGERY Cataract removal HYSTERECTOMY 1984 JOINT REPLACEMENT left knee arthroplasty PARTIAL HYSTERECTOMY ROTATOR CUFF REPAIR Right ROTATOR CUFF REPAIR Left TOE SURGERY Right History of Present Illness: Planned R TKA Prior Function/Occupational Profile: Prior Mobility/Functional Transfers Level of [place]: Independent Prior Function/Occupational Profile Dominant Hand: Right Lives With: Spouse ADL Assistance: Independent IADL/Homemaking Assistance: Independent Driving: Independent Occupational Role: Retired Home Living Type of Home: House Home Layout: Split-level Home Access: Stairs to enter with rails Entrance Stairs: Number of Steps: 6 stairs to landing followed by 6 stairs to main living area. Unilateral rail. Bathroom Shower/Tub: Tub/shower unit Bathroom Toilet: Comfort height Home Equipment Gait Devices Owned: Front-wheeled walker Family/Caregiver Present: No Patient/Caregiver Goals: Discharge home with with outpatient physical therapy in [place] Additional Staff Present During Session: N/A Activity Orders (From admission, onward) None Precautions Weight Bearing Status: Weightbearing as tolerated Other Precautions: Postop fall precaution Fall Risk (65 and older) Fall in the last 12 months: No Are you fearful of falling?: No OBJECTIVE No pain behavior observed Measures - Tools AM-PAC Activity: How much help from another person does the patient currently need??? Putting on and taking off regular lower body clothing?: None Putting on and taking off regular upper body clothing?: None Taking care of personal grooming such as brushing teeth?: None Bathing (including washing, rinsing, drying)?: None Toileting, which includes using toilet, bedpan, or urinal?: None Eating meals?: None AM-PAC Activity: Score Daily Activities Raw Score (max 24): 24 Daily Activities Standardized Score: 57.54 AM-PAC is a functional measure used in post acute care to guide discharge recommendations. Today, Heather Harrell had a standardized score of 57.54. [facility]'s 3-year data, as reported at [facility] 2017, indicates a cut off of 39.4 or greater in daily activity is a fair to good accurate prediction of discharge home. Source: AM-PAC ???6 -Clicks?? functional assessment scores predict acute care hospital discharge destination. Railroad Mechanic. 2014 Apr; 94 (9): 1252-61. Cognition Cognitive assessment method: Therapist observations Arousal/Alertness: Appropriate responses to stimuli Attention: Addressed, no concerns noted Orientation: Oriented X4 Strength - Upper Extremity Screen: Addressed, no concerns noted ROM - Upper Extremity Screen: Addressed, no concerns noted Feeding Feeding Location: Chair Feeding Level of Assistance: Independent UE Dressing UE Dressing Delivery: Instructed, Assessed UE Dressing Items Included: government gauger shirt UE Dressing Level of Assistance: Independent UE Dressing Location: Chair LE Dressing LE Dressing Location: Chair LE Dressing Delivery: Assessed, Instructed LE Dressing Items Included: Socks, Shoes, Pants, Underwear/Adult incontinence briefs LE Dressing Level of Assistance: Independent LE Dressing Comments: Cued to dress surgical leg - first one in last one out of pants Toileting Toileting Location: Toilet Toileting Delivery: Assessed, Instructed Toileting Adaptive Equipment: Grab bars Toileting Level of Assistance: Modified independent Toileting Comments: Independent with clothing management and hygiene. Use of grab bar/walker with transfer. Toilet Transfers # of Assistants: 1 Transfer Surface: Toilet Transfer Approach: To and from Transfer Equipment: Grab bars, Front wheeled walker, Other (comment) (gait belt) Level of Assistance: Modified independent Assessment/Delivery: Assessed, Instructed Sit to Stand Transfers # of Assistants: 1 Transfer Surface: Chair Transfer Equipment: Gait belt, Front wheeled walker Level of Assistance: Supervision/set-up Assessment/Delivery: Assessed, Educated Stand to Sit Transfers # of Assistants: 1 Transfer Surface: Chair Transfer Equipment: Gait belt, Front wheeled walker Level of Assistance: Independent, Supervision/set-up Assessment/Delivery: Assessed Team Communication: Discussed patient's care with PT Upon arrival in room patient was found seated in the chair, needs including call [place]/light in reach. Following treatment patient was left seated in the chair, needs including call [place]/light in reach. Assessment Ms. Harrell is s/p R TKA. Today, She was able to complete lower body dressing independently, doffing and donning socks independently, functional mobility with toilet transfer, and toilet hygiene gila mod I. Ms. Harrell verbalized understanding of car transfer technique and future home modificati ons/adjustments in order for continued success and recovery after discharge. B UE AROM WFL. Cognition intact. She was very thankful for the AE recommendations provided today and will further look into obtaining the recommended items below. Ms. Harrell is anticipated to discharge home with the support of spouse; she indicates no concerns regarding discharge. No further need for skilled occupational therapy services at this time; all needs met and questions answered before OT left - discontinuehospital OT order. Recommendations: Refrain from driving until off of pain medication and/or until cleared by surgeon No planting and twisting of the R post-surgical lower extremity Weight bear as tolerated on the R post-surgical lower extremity Do not place a pillow directly under knee of the extended R post-surgical lower extremity while seated; rather, promote extension of R leg while seated in recliner or while in bed Adaptive Equipment Information Handout provided as patient education Gait belt and recommended device used with all mobility and self care transfers. Discharge Considerations: Barriers to Discharge Home: None Level of Care Needed - OT: Assistance with toilet/shower transfers, Assistance with transportation,Assistance with housekeeping, Assistance with shopping Recommended Adaptive Equipment - OT: Transfer tub bench Clinical Impression: Patient is a 77 y.o. who was admitted to the hospital with a diagnosis of: Primary Osteoarthritis Knee Right [M17.11]. Prior to hospitalization patient was completing daily activities independently. Currently, patient presents with limitations including R LE weakness/discomfort s/p R TKA. Impairments: R LE weakness/discomfort Functional deficits: mobility, transfers, self-cares Rehab potential: Patient has excellent potential to achieve established occupational therapy goals within the time frame outlined below. Education was provided regarding evaluative findings, diagnosis, prognosis, potential risks and benefits of rehabilitation interventions. Comorbid Conditions: None Personal Factors: Age Occupational Profile and History review: Brief Performance Deficits: 1 - 3 performance deficits Evaluation Complexity: Low Functional Goals and Timeframes: OT Goal #1: Patient will complete toileting with mod I including per-care and clothing management. OT Goal #1 Date: 07/06/23 OT Goal #1 Status: Achieved OT Goal #2: Patient will complete LE dressing independently protecting surgical repair. OT Goal #2 Date: 07/06/23 OT Goal #2 Status: Achieved OT Goal #3: Patient will verbalize 2 modifications to home to increase safety. OT Goal #3 Date: 07/06/23 OT Goal #3 Status: Achieved OT Goal #4: Patient will independently verbalize surgical precautions during ADLS to protect surgical repair. OT Goal #4 Date: 07/06/23 OT Goal #4 Status: Achieved Plan Therapy Attestation: Patient agrees with the plan of care and goals. OT Frequency: OT Frequency: One-time visit OT Duration: Inpatient OT Received On Date: 07/06/23 Requires Inpatient Follow-Up: No Next Inpatient Appointment: Plan for next session: N/A Plan: Discontinue OT Treatment interventions may include: Treatment Interventions: Self-care/home management Time Spent with Patient Evaluations OT Eval - Low Complexity : 10 min Therapeutic Interventions Home Management Training (min): 13 min Time Tracking Total Timed Units (min): 13 min Total Treatment Time (min): 23 min TRUSS DETAILER * Esperanza Paulson M.D. - 07/05/2023 1:03 PM CSTAssociated Order(s): IP CONSULT TO HOSPITAL INTERNAL MEDICINE Orthopedic Surgery Consult Note Chart review only SUBJECTIVE 77 y.o. female is POD# 0 s/p robotically assisted CT-guided right total knee arthroplasty by Dr. Renner. Preoperative evaluation by primary care provider outlines a past medical history of former tobacco use (quit in 1991), no CAD or CVA history, A1c 03/2019 of 6.7, on metformin, on aspirin 81 and rosuvastatin daily. No perioperative complications reported. Estimated blood loss of 100cc. Postoperatively, patient has remained vitally stable. No nursing concerns reported. Orthopedic team to manage perioperative cares including physical therapy, pain management, and DVT prophylaxis. Given history of diabetes, started on sliding scale insulin and hypoglycemia protocol Recommend resuming aspirin 81 per surgery's recommendations. Hospital Medicine will sign off, available for questions or concerns if needed. TRUSS DETAILER documented in this encounter Nursing Notes * Hannah Mccartney R.N. - 07/06/2023 1:55 PM CST Shift Goals: Clinical Goals for the Shift: Patient will state adequate pain control during this shift. Identify possible barriers to meeting goals/advancing plan of care: right knee End of Shift Summary: Patient states adequate pain control during this shift, rating her pain at a 1 or a 2 out of 10 in the pain scale. No PRN pain medication given during this shift. Patient able to discharge home today. I reviewed the discharge paperwork with the patient and her both unde rstood and had no questions at this time. Due to today being a holiday the pharmacy was not open. Icontacted our in house pharmacist that mentioned for us to call and see if the ER provider would help assist us in getting some of the medications for the patient from the insty meds, medication dispenser down in the ER. The ER provider was able to help assist us in getting a small dose of meds forthe patient to use while until the pharmacy opens up. Please see the ER provider, (Dr Bear) note for details. I relayed all this information to Ciaran with Ortho. I also notified Ciaran that the patient would prefer for her prescriptions to be sent to the [facility] in [place] as they do not live in [place] and do not want to drive back here tomorrow when the pharmacy opens. Patient left the floor around 1400 with her . Problem: SAFETY ADULT Goal: Maintain a safe environment Outcome: Adequate for Discharge Problem: SAFETY ADULT - RISK FOR FALL AND OR FALL INJURY Goal: Patient remains free from fall/fall injury Outcome: Adequate for Discharge Problem: PAIN - ADULT Goal: PT VERBALIZES/DEMONSTRATES ADEQUATE COMFORT LEVEL OR BASELINE Outcome: Adequate for Discharge Problem: DISCHARGE PLANNING Goal: Patient discharge needs identified Outcome: Adequate for Discharge TRUSS DETAILER * Lenore Marquez R.N. - 07/06/2023 5:28 AM CST Problem: SAFETY ADULT Goal: Maintain a safe environment Outcome: Progressing Problem: SAFETY ADULT - RISK FOR FALL AND OR FALL INJURY Goal: Patient remains free from fall/fall injury Outcome: Progressing Problem: PAIN - ADULT Goal: PT VERBALIZES/DEMONSTRATES [...] mucous membranes remain intact Outcome: Progressing Problem: DISCHARGE PLANNING Goal: Patient discharge needs identified Outcome: Progressing Shift Goals: Clinical Goals for the Shift: Patient will report adequate pain relief and vitals will remain stable during this shift. Identify possible barriers to meeting goals/advancing plan of care: post-surgical End of Shift Summary: Patient was A/O x3. No reports of pain despite being post- surgical. Administered scheduled pain medications. Pt refused 0200 dose of Toradol. Up w/ 1A and a GB to the commode. Remained free from falls however, pt's right (surgical) knee keeps buckling upon standing. Pt was anxious, gave lavender aromatherapy which seemed to help her go back to sleep. VSS. TRUSS DETAILER * Dianne Barron R.N. - 07/05/2023 5:44 PM CST Problem: PAIN - ADULT Goal: PT VERBALIZES/DEMONSTRATES ADEQUATE COMFORT LEVEL OR BASELINE Outcome: Progressing Problem: KNOWLEDGE DEFICIT Goal: Patient/family/caregiver demonstrates understanding of disease process, treatment plan, medications, and discharge instructions Outcome: Progressing Shift Goals: Pt will verbalize adequate comfort. Identify possible barriers to meeting goals/advancing plan of care: None End of Shift Summary: Denies pain. Up to chair with PT. Tolerated fairly well. Cold therapy on. TRUSS DETAILER documented in this encounter OR Notes * Op Note - Uriel Renner M.D. - 07/05/2023 8:23 AM CST Pre-op Diagnosis Primary Osteoarthritis Knee Right Post-op Diagnosis Primary Osteoarthritis Knee Right A senior sales assistant actively participated and was necessary for one or more of the following: opening, exposure and visualization during the case, maintaining hemostasis, wound closure resulting in itssafe and expeditious completion. Findings As expected. Complications None Operative Note Narrative PROCEDURE: Robotically assisted CT-guided right total knee arthroplasty. SURGEON: Uriel Renner M.D. INDICATIONS: Heather is a 77 y.o. who has been suffering with right knee DJD. Despite conservative measures, has made no significant improvement in her symptoms. Discussed risks, benefits, and alternatives to robotically assisted CT-guided right total knee arthroplasty with her. she understands these and desires to proceed with surgery. OPERATIVE NOTE NARRATIVE Patient brought to the operating room, placed on the operating room table in the supine position. Tourniquet was placed around her right thigh. Right leg was then prepped and draped in sterile fashion. Attention was brought to the anterior aspect of the knee. A longitudinal incision was then made and was brought down through subcutaneous tissue to the extensor mechanism. The extensor mechanism was cleared off the knee laterally. Standard medial parapatellar arthrotomy was then performed. Medialrelease was then done off the tibia. We then placed our pins in both the femur and the tibia for the arrays. The arrays were then positioned. Once that was completed, we then confirmed the hip center, the ankle center, and then mapped out the femur and the tibia for the CT plan. Once that was completed, we then assessed the patient's ligaments in both extension and flexion and made adjustments toour plan based on this. Following this, the patella was then everted. Soft tissue around the patella was then removed. Oscillating saw was used to cut off approximately 9-10 mm of bone from the undersurface of the patella. The retractors were then positioned. The ACL was cut and excised. The robot was then brought in, and we then performed the femoral cuts followed by the tibial cut. Once that was completed, bony pieces were then removed. The arrays and the pins were then removed from the tibiaand the femur. The medial and lateral meniscus were then removed in their entirety. Posterior osteophytes were removed with osteotome and rongeur. PS cutting block was then placed in the distal aspect of the femur. PS cut was then performed. Bony pieces were then removed. The tibia was then subluxed anteriorly. Tibial guide was then placed proximally, pinned into place and punched. We then placed our tibial component, femoral component, and trial poly. The patella was then again everted. The drill guide was then placed onto the patella and then drilled. We then trialed with our patellar trial. Knee was put through range of motion with excellent tracking, excellent stability and range of motion. All of the trial components were then removed. The real poly was then placed, followed by the real patellar component. The knee was then copiously irrigated with antibiotic solution. The extensormechanism was then closed using #1 Vicryl in an interrupted [id number] fashion followed by copious irrigation. Subcutaneous tissues were then closed using 2-0 Vicryl. The skin was then closed using a ZipLine device followed by an Aquacel Ag dressing and IRVIN bandage. Patient was then awakened and transferred to the recovery room in good condition. Needle and sponge counts were correct. Uriel Renner M.D. TRUSS DETAILER documented in this encounter ED Notes * Bertha Bear M.D. - 07/06/2023 1:18 PM CST I was contacted by the Orthopedics nursing staff regarding a prescription for pain medicine. Today's Thanksgiving in all outpatient pharmacies are closed. The patient had orthopedic surgery today andwas prescribed oxycodone 5 mg 1-2 tablets every 4-6 hours as needed for pain. With pharmacy closureshe is unable to obtain this medication to assist her with her postoperative pain overnight. We do have an [employer] medication dispenser machine in the emergency department. I have entered an electronic prescription for oxycodone 5 mg 1-2 tablets every 4-6 hours as needed for pain with quantity of 6 tablets. The patient may fill this in our insty med machine to give her a temporary medication supply until pharmacies open tomorrow. I have not seen or evaluated the patient, nor was I part of decision-making care for her. I am the only provider on-site tonight that has access to this medication machine, and thus entered the prescription. I did verify that the caller was her nursing staff. VITAL SIGNS BP 136/63 (BP Location: Right arm;Upper) Pulse 87 Temp 36.7 ??C (Temporal) Resp 18 Ht 165.1cm Wt 64.2 kg SpO2 97% BMI 23.55 kg/m?? Bertha Bear M.D. 07/06/23 1321 TRUSS DETAILER documented in this encounter Plan of Treatment Upcoming Encounters Date Type Department Care Team (Late st Contact Info) Description 09/26/2023 10:30 AM ROOF TRUSS DETAILER Office Visit Department of Orthopedic Surgery in [address] [place] [address] Amanda Scott APRN, C.N.P., D.N.P. [address] [place] [phone] Discharge Disposition: Home or Self Care Scheduled Referrals Name Type Priority Associated Diagnoses Order Schedule Orthopedic Surgery Post Op (clinic) Outpatient Referral Routine 1 Occurrenc es starting 07/05/2023 until 07/05/2026 documented as of this encounter Procedures Procedure Name Priority Date/Time Associated Diagnosis Comments GLUCOSE POCT, B Routine 07/06/2023 1:06 PM ROOF TRUSS DETAILER GLUCOSE POCT, B Routine 07/06/2023 8:02 AM ROOF TRUSS DETAILER HEMOGLOBIN, B Routine 07/06/2023 5:52 AM ROOF TRUSS DETAILER HEMOGLOBIN A1C, B Routine 07/06/2023 5:5 2 AM ROOF TRUSS DETAILER GLUCOSE POCT, B Routine 07/05/2023 9:34 PM ROOF TRUSS DETAILER GLUCOSE POCT, B Routine 07/05/2023 4:35 PM ROOF TRUSS DETAILER PULSE OXIMETRY, CONTINUOUS Routine 07/05/2023 11:01 AM ROOF TRUSS DETAILER PULSE OXIMETRY, CONTINUOUS Routine 07/05/2023 11:01 AM ROOF TRUSS DETAILER ROBOTIC-ASSISTED KNEE TOTAL ARTHROPLASTY 07/05/2023 7:35 AM ROOF TRUSS DETAILER Primary Osteoarthritis Knee Right GLUCOSE POCT, B Routine 07/05/2023 7:22 AM ROOF TRUSS DETAILER ECG STAT 07/05/2023 7:10 AM ROOF TRUSS DETAILER documented in this encounter Results * (ABNORMAL) Glucose, POCT (07/06/2023 1:06 PM ROOF TRUSS DETAILER) Glucose, POCT, B 148(H) 70 - 140 mg/dL 07/06/2023 1:06 PM ROOF TRUSS DETAILER RDWG Blood 07/06/2023 1:06 PM ROOF TRUSS DETAILER 07/06/2023 1:16 PM ROOF TRUSS DETAILER Generic Rals LAB POCT ORDERABLES- MANUAL [facility] [address] [place] [address], [facility] [place] RDWG [facility] [place] [address] [place] [phone] * (ABNORMAL) Glucose, POCT (07/06/2023 8:02 AM ROOF TRUSS DETAILER) Glucose, POCT, B 146(H) 70 - 140 mg/dL 07/06/2023 8:02 AM ROOF TRUSS DETAILER RDWG Blood 07/06/2023 8:02 AM ROOF TRUSS DETAILER 07/06/2023 8:13 AM ROOF TRUSS DETAILER Generic Rals LAB POCT ORDERABLES- MANUAL [facility] [address] [place] [address] [place] [address], [facility] [place] RDWG [facility] [place] [address] [place] [phone] * (ABNORMAL) Hemoglobin A1c (07/06/2023 5:52 AM ROOF TRUSS DETAILER) Hemoglobin A1c, B 7.2(H) 4.2 - 5.6 % 07/06/2023 6:50 AM ROOF TRUSS DETAILER RDWG Comment: Hemoglobin A1c values greater than or equal to 6.5 percent are diagnostic for diabetes mellitus. ??Diagnosis should be confirmed by repeat testing. ??In diabetic patients, HbA1c goals should be discussed with healthcare provider. Blood (Blood, Venous) 07/06/2023 5:52 AM ROOF TRUSS DETAILER 07/06/2023 6:30 AM ROOF TRUSS DETAILER Uriel M Renner M.D. LAB BLOOD ADD-ON Performing Organization Address City/[facility]/ZIP Co de Phone Number [facility] [address] [place] [address], [facility] [place] RDWG [facility] [place] [address] [place] [address] * (ABNORMAL) Hemoglobin (07/06/2023 5:52 AM ROOF TRUSS DETAILER) Hemoglobin 9.4(L) 11.6 - 15.0 g/dL 07/06/2023 6:37 AM ROOF TRUSS DETAILER RDWG Blood (Blood, Venous) 07/06/2023 5:52 AM ROOF TRUSS DETAILER 07/06/2023 6:30 AM ROOF TRUSS DETAILER Amanda Scott APRN, C.N.P., BobyNIvanna. LAB BLO OD ADD-ON Performing Organization Address City/[facility]/ZIP Co de Phone Number [facility] [address] [place] [address], [facility] [place] [address] * (ABNORMAL) Glucose, POCT (07/05/2023 9:34 PM ROOF TRUSS DETAILER) Glucose, POCT, B 212(H) 70 - 140 mg/dL 07/05/2023 9:34 PM ROOF TRUSS DETAILER RDWG Blood 07/05/2023 9:34 PM ROOF TRUSS DETAILER 07/05/2023 9:41 PM ROOF TRUSS DETAILER Generic Rals LAB POCT ORDERABLES- MANUAL [facility] [address] [place] [address], [facility] [place] [place] [address] * (ABNORMAL) Glucose, POCT (07/05/2023 4:35 PM ROOF TRUSS DETAILER) Glucose, POCT, B 292(H) 70 - 140 mg/dL 07/05/2023 4:35 PM ROOF TRUSS DETAILER RDWG Blood 07/05/2023 4:35 PM ROOF TRUSS DETAILER 07/05/2023 4:42 PM ROOF TRUSS DETAILER Generic [facility] POCT ORDERABLES- MANUAL [facility] [address] [place] [address], [place] RDWG [facility] [place] [address] [place] [address] * (ABNORMAL) Glucose, POCT (07/05/2023 7:22 AM ROOF TRUSS DETAILER) Glucose, POCT, B 163(H) 70 - 140 mg/dL 07/05/2023 7:22 AM ROOF TRUSS DETAILER RDWG Blood 07/05/2023 7:22 AM ROOF TRUSS DETAILER 07/05/2023 7:43 AM ROOF TRUSS DETAILER Generic [facility] LAB POCT ORDERABLES- [facility]UAL [facility] [address] [place] [address], [place] RDW[facility] [place] [address] [place] [address] * ECG 12 Lead (07/05/2023 7:10 AM ROOF TRUSS DETAILER) Ventricular Rate ECG/Min 62 BPM MUSE QRSD Interval 84 ms MUSE QT Interval 410 ms MUSE QTC Interval 416 ms MUSE R [place] -54 degrees MUSE T Wave [place] 10 degrees MUSE 07/05/2023 7:10 AM ROOF TRUSS DETAILER 07/05/2023 9:51 AM ROOF TRUSS DETAILER Impressions MUSE - 07/05/2023 7:21 AM ROOF TRUSS DETAILER Normal sinus rhythm Left anterior fascicular block [...] in data has occurred Reviewed by AUBREY Jonhson Wilda Armendariz M.D. ECG ORDERABLES MUSE NA documented in this encounter Visit Diagnoses Diagnosis Primary Osteoarthritis Knee Right- Primary documented in this encounter Admitting Diagnoses Diagnosis Primary Osteoarthritis Knee Right documented in this encounter Administered Medications Inactive Administered Medications - up to 3 most recent administrations Medication Order MAR Action Action Date Dose Rate Site acetaminophen tablet 1,000 mg (TYLENOL) 1,000 mg, oral, Once, On Mon07/05/23 at 0645, For 1 dose, Pre-Op Given 07/05/2023 7:14 AM ROOF TRUSS DETAILER 1,000 mg acetaminophen tablet 1,000 mg (TYLENOL) 1,000 mg, oral, Every 6 hours, First dose on Mon07/05/23 at 1300 Given 07/06/2023 6:31 AM ROOF TRUSS DETAILER 1,000 mg Given 07/06/2023 12:20 AM ROOF TRUSS DETAILER 1,000 mg Given 07/05/2023 6:30 PM ROOF TRUSS DETAILER 1,000 mg ceFAZolin injection 2 g (ANCEF) 2 g, intravenous, Every 8 hours, First dose on Mon07/05/23 at 1530, For 2 doses, If needed, reconstitute vial per package insert instructions. See IVAG for administration guidelines., Drug Monitoring Program: Pharmacist to adjust medication dosing based on indication and drug clearance factors., Indications: Prophylaxis, surgical Given 07/06/2023 12:20 AM ROOF TRUSS DETAILER 2 g Given 07/05/2023 2:33 PM ROOF TRUSS DETAILER 2 g celecoxib capsule 200 mg (CeleBREX) 200 mg, oral, Once, On Mon07/05/23 at 0645, For 1 dose, Pre-Op Given 07/05/2023 7:14 AM ROOF TRUSS DETAILER 200 mg chlorhexidine 0.12 % mouthwash 15 mL (PERIDEX) 15 mL, swish & spit, Once as needed, Chlorhexidine mouthwash (Peridex) should be given if patient did not complete oral care, if completion is greater than 4 hours prior to surgery or procedure start time and they do not have the opportunity to brush their teeth now (or at this time)., Starting on Mon07/05/23 at 0630, For 1 dose, Pre-Op, Instruct patient to swish entire content of Chlorhexidine 0.12% mouthwash (PERIDEX) 15 mL cup for 30 seconds, then spit, swish & spit. If patient is at risk for aspiration, apply Chlorhexidine 0.12% mouthwash to a swab and gently swab the patient's teeth and gums. Ensure swab is not oversaturated. Given 07/05/2023 7:14 AM ROOF TRUSS DETAILER 15 mL dextrose 40 % gel 15 g (GLUTOSE) 15 g, oral, As needed, low blood sugar, For glucose 51-70 mg/dL, Starting on Mon07/05/23 at 1536, If patient is conscious and able to swallow safely and has a fuctioning gastrointestinal tract or on Acarbose (Precose??) or Miglitol (Glyset??). May use tablets or gel. dextrose 50 % injection 12.5 g 12.5 g, intravenous, As needed, low blood sugar, For glucose 51-70 mg/dL, Starting on Mon07/05/23 at 1536, If the patient has intravenous access available, is not able to take oral feeding safely, does not have a functioning gastrointestinal tract or feeding tube, or is NPO, administer D50W intravenously. dextrose 50 % injection 25 g 25 g, intravenous, As needed, low blood sugar, For glucose less than 50 mg/dL, Starting on Mon07/05/23 at 1536, If intravenous access is available, administer D50W intravenously enoxaparin injection 40 mg (LOVENOX) 40 mg, subcutaneous, Daily, First dose on Misyt 07/06/23 at 0900 Given 07/06/2023 9:42 AM ROOF TRUSS DETAILER 40 mg Right Lower Abdomen glucagon injection 1 mg (GlucaGen) 1 mg, subcutaneous, Once as needed, low blood sugar, For glucose 51-70 mg/dL, Starting on Mon07/05/23 at 1536, For 1 dose, If patient is not able to take oral feeding safely, does not have a functioning gastrointestinal tract or feeding tube, or is NPO. Following treatment with Glucagon, a source of glucose should be started to maintain blood glucose level (e.g., patient should eat oral carbohydrates if allowed or perscriber should be contacted to consider starting fluids containing dextrose) Glucagon may only be given once per hypoglycemia episode. glucagon injection 1 mg (GlucaGen) 1 mg, subcutaneous, Once as needed, low blood sugar, For glucose less than 50 mg/dL, Starting on Mon07/05/23 at 1536, For 1 dose, If intravenous access not available and patient is not able to take oral feeding safely, does not have a functioning gastrointestinal tract or feeding tube. glucose chewable tablet 16 g 16 g, oral, As needed, low blood sugar, For glucose 51-70 mg/dL, Starting on Mon07/05/23 at 1536, If patient is conscious and able to swallow safely and has a functioning gastrointestinal tract or on Acarbose (Precose??) or Miglitol (Glyset??). Administer 4 tablets to total 16 grams. May use tablets or gel. granisetron (PF) injection 1 mg (KYTRIL) 1 mg, intravenous, Once as needed, nausea, vomiting, Starting on Mon07/05/23 at 0959, For 1 dose, PACU (only), If patient does not respond to ondansetron or haloperidol. (order of antiemetic administration - ondansetron then haloperidol then granisetron) Given 07/05/2023 10:31 AM ROOF TRUSS DETAILER 1 mg haloperidol lactate injection 1 mg (HALDOL) 1 mg, intravenous, Every 6 hours PRN, nausea, vomiting, Starting on Mon07/05/23 at 1101, For 48 hours, Total of 3 doses in 24 hour period. RASS must be -2 or higher to administer. Reassess for nausea or vomiting after at least 10 minutes. If nausea or vomiting persists administer next ordered antiemetic medications (order for antiemetic medication administration ondansetron then haloperidol then prochlorperazine) Given 07/05/2023 12:47 PM ROOF TRUSS DETAILER 1 mg insulin aspart U-100 injection 0-7 Units (NovoLOG FlexPen) 0-7 Units, subcutaneous, 3 times daily, First dose on Mon07/05/23 at 1700, Insulin Scale: Mild Correction Scale, 180 - 219: 2 units, 220 - 259: 3 units, 260 - 299: 4 units, 300 - 339: 5 units, 340 - 379: 6 units, 380 - 399: 7 units, Greater than 399: Call service writing Insulin orders Given 07/05/2023 5:35 PM ROOF TRUSS DETAILER 4 Units Right Lower Abdomen insulin aspart U-100 injection 0-7 Units (NovoLOG FlexPen) 0-7 Units, subcutaneous, Daily at bedtime, First dose on Misty 07/06/23 at 2100, Insulin Scale: Modified Bedtime Correction Scale, 220-259: 3 units, 260-299: 4 units, 300-339: 5 units, 340-379: 6 units, 380-399: 7 units, Greater than 399: Call service writing insulin orders ketorolac injection 15 mg (TORADOL) 15 mg, intravenous, Every 6 hours, First dose on Mon07/05/23 at 1400, For 4 doses, Adult IV push rate: Over 15 seconds. Peds IV push rate: Over 1 minute. Doses > 15 mg IV/IM are discouraged due to lack of additional analgesic benefit., Drug Monitoring Program: Pharmacist to adjust medication dosing based on indication and drug clearance factors. Given 07/06/2023 9:42 AM ROOF TRUSS DETAILER 15 mg Given 07/05/2023 8:56 PM ROOF TRUSS DETAILER 15 mg Given 07/05/2023 1:40 PM ROOF TRUSS DETAILER 15 mg Lactated Ringer's 20 mL/hr, intravenous, Continuous, Starting on Mon07/05/23 at 0645, Pre-Op New Bag 07/05/2023 9:24 AM ROOF TRUSS DETAILER Restarted 07/05/2023 7:46 AM ROOF TRUSS DETAILER New Bag 07/05/2023 7:19 AM ROOF TRUSS DETAILER 20 mL/hr 20 mL/hr Lactated Ringer's 50 mL/hr, intravenous, Continuous, Starting on Mon07/05/23 at 1130 Continued from OR 07/05/2023 11:18 AM ROOF TRUSS DETAILER 50 mL/hr 50 mL/hr oxyCODONE IR tablet 10 mg (ROXICODONE) 10 mg, oral, Every 4 hours PRN, severe pain or score 7-10 of 10, Starting on Mon07/05/23 at 1101, Second line therapy. If patient is greater than 7 after 2 hours, call service for new order. oxyCODONE IR tablet 5 mg (ROXICODONE) 5 mg, oral, Every 4 hours PRN, moderate pain or score 4-6 of 10, Starting on Mon07/05/23 at 1101, Second line therapy prochlorperazine injection 5 mg (COMPAZINE) 5 mg, intravenous, Every 6 hours PRN, nausea, vomiting, Starting on Mon07/05/23 at 1101, For 48 hours, RASS must be -2 or higher to administer. Reassess for nausea/vomiting after at least 10 minutes. If nausea or vomiting persists administer next ordered antiemetic medications (order for antiemetic medication administration ondansetron then haloperidol then prochlorperazine) Given 07/05/2023 1:49 PM ROOF TRUSS DETAILER 5 mg rosuvastatin tablet 5 mg (CRESTOR) 5 mg, oral, Daily at bedtime, First dose on Mon07/05/23 at 2100 Given 07/05/2023 8:56 PM ROOF TRUSS DETAILER 5 mg scopolamine base 1 mg over 3 days 1 patch (TRANSDERM SCOP) 1 patch, transdermal, Administer over 72 Hours, Every 72 hours, First dose on Mon07/05/23 at 0730, Pre-Op, Contains 1.5 mg to deliver 1 mg/72 hours. Medication Applied 07/05/2023 7:19 AM ROOF TRUSS DETAILER 1 patch Behind Left Ear sennosides-docusate sodium 8.6-50 mg per tablet 1 tablet (SENOKOT-S) 1 tablet, oral, 2 times daily, First dose on Mon07/05/23 at 2100, Do not give if patient has diarrhea. Given 07/06/2023 9:42 AM ROOF TRUSS DETAILER 1 tablet Given 07/05/2023 8:56 PM ROOF TRUSS DETAILER 1 tablet traMADoL tablet 100 mg (ULTRAM) 100 mg, oral, Every 6 hours PRN, severe pain or score 7-10 of 10, Starting on Mon07/05/23 at 1101, First line therapy or for pain greater than comfort goal (not to exceed 400 mg in 24 hours)., Restriction Criteria (Pharmacy will review and approve if criteria met): Use in adults 18 years and older traMADoL tablet 50 mg (ULTRAM) 50 mg, oral, Every 6 hours PRN, moderate pain or score 4-6 of 10, Starting on Mon07/05/23 at 1101, First line therapy, Restriction Criteria (Pharmacy will review and approve if criteria met): Use in adults 18 years and older documented in this encounter Active and Recently Administered Medications Times are shown in ROOF TRUSS DETAILER. Scheduled Medication Order 07/04/2023 07/05/2023 07/06/2023 acetaminophen tablet 1,000 mg (TYLENOL) (COMPLETED) 1,000 mg, oral, Once, On Mon07/05/23 at 0645, For 1 dose, Pre-Op 0714 (Given - Provider: Natali Penaloza R.N.) acetaminophen tablet 1,000 mg (TYLENOL) 1,000 mg, oral, Every 6 hours, First dose on Mon07/05/23 at 1300 1340 (Given - Provider: Dianne Barron RWilfredo.)1830 (Given - Provider: Dianne Barron R.N.) 0020 (Given - Provider: Susan HollisN.)0631 (Given - Provider: Precious Thompson R.N.)1327 (Not Given - Provider: Hannah Mccartney RJudithN. - Reason: Patient/family refused) ceFAZolin injection 2 g (ANCEF) (COMPLETED) 2 g, intravenous, Every 8 hours, First dose on Mon07/05/23 at 1530, For 2 doses, If needed, reconstitute vial per package insert instructions. See IVAG for administration guidelines., Drug Monitoring Program: Pharmacist to adjust medication dosing based on indication and drug clearance factors., Indications: Prophylaxis, surgical 1433 (Given - Provider: Dianne Barron RTang) 0020 (Given - Provider: Lenore Marquez R.N.) ceFAZolin injection 2,000 mg (ANCEF) (COMPLETED) 2,000 mg (rounded from 1,587.5 mg = 25 mg/kg ? 63.5 kg), intravenous, Once, On Mon07/05/23 at 0700, For 1 dose, Intra-Op, Preoperatively within 1 hour prior to surgical incision If needed, reconstitute vial per package insert instructions. See IVAG for administration guidelines., Drug Monitoring Program: Pharmacist to adjust medication dosing based on indication and drug clearance factors., Indications: Prophylaxis, surgical 0802 (Given - Provider: Evan Hernandez APRN, KIRSTIN, R.N.) celecoxib capsule 200 mg (CeleBREX) (COMPLETED) 200 mg, oral, Once, On Mon07/05/23 at 0645, For 1 dose, Pre-Op 0714 (Given - Provider: Natali Penaloza RJudithNJudith) enoxaparin injection 40 mg (LOVENOX) 40 mg, subcutaneous, Daily, First dose on Mon07/06/23 at 0900 0942 (Given - Provider: Hannah Mccartney R.N.) insulin aspart U-100 injection 0-7 Units (NovoLOG FlexPen) 0-7 Units, subcutaneous, 3 times daily, First dose on Mon07/05/23 at 1700, Insulin Scale: Mild Correction Scale, 180 - 219: 2 units, 220 - 259: 3 units, 260 - 299: 4 units, 300 - 339: 5 units, 340 - 379: 6 units, 380 - 399: 7 units, Greater than 399: Call service writing Insulin orders 1735 (Given - Provider: Dianne Braron R.N.) 0823 (Not Given - Provider: Hannah Mccartney R.N. - Reason: Order parameters not met - Comment: blood sugar 146)1327 (Not Given - Provider: Hannah Mccartney R.N. - Reason: Order parameters not met - Comment: blood sugar 148) insulin aspart U-100 injection 0-7 Units (NovoLOG FlexPen) 0-7 Units, subcutaneous, Daily at bedtime, First dose on Mon07/06/23 at 2100, Insulin Scale: Modified Bedtime Correction Scale, 220-259: 3 units, 260-299: 4 units, 300-339: 5 units, 340-379: 6 units, 380-399: 7 units, Greater than 399: Call service writing insulin orders ketorolac injection 15 mg (TORADOL) 15 mg, intravenous, Every 6 hours, First dose on Mon07/05/23 at 1400, For 4 doses, Adult IV push rate: Over 15 seconds. Peds IV push rate: Over 1 minute. Doses > 15 mg IV/IM are discouraged due to lack of additional analgesic benefit., Drug Monitoring Program: Pharmacist to adjust medication dosing based on indication and drug clearance factors. 1340 (Given - Provider: Dianne Barron R.N.)2056 (Given - Provider: Lenore Marquez RTang) 0252 (Not Given - Provider: Precious Thompson R.N. - Reason: Patient/family refused)0942 (Given - Provider: Hannah Mccartney R.N.) rosuvastatin tablet 5 mg (CRESTOR) 5 mg, oral, Daily at bedtime, First dose on Mon07/05/23 at 2100 2055 (Given - Provider: Lenore Marquez R.N.) scopolamine base 1 mg over 3 days 1 patch (TRANSDERM SCOP) (CANCELED) 1 patch, transdermal, Administer over 72 Hours, Every 72 hours, First dose on Mon07/05/23 at 0730, Pre-Op, Contains 1.5 mg to deliver 1 mg/72 hours. 0719 (Medication Applied - Provider: Natali Penaloza R.N.)1118 (Canceled Entry - Provider: Dianne Barron R.N. - Comment: Time automatically adjusted from order being discontinued) sennosides-docusate sodium 8.6-50 mg per tablet 1 tablet (SENOKOT-S) 1 tablet, oral, 2 times daily, First dose on Mon07/05/23 at 2100, Do not give if patient has diarrhea. 2055 (Given - Provider: Leonre Marquez R.N.) 0942 (Given - Provider: Hannah Mccartney R.N.) tranexamic acid in NaCl IVPB 1,000 mg (CYKLOKAPRON) (COMPLETED) 1,000 mg (1 g), intravenous, at 300 mL/hr, Administer over 20 Minutes, Once, On Mon07/05/23 at 0700, For 1 dose, Intra-Op, Administer in OR upon induction 19 (Given - Provider: Evan Hernandez APRN, KIRSTIN, R.N.) tranexamic acid in NaCl IVPB 1,000 mg (CYKLOKAPRON) (COMPLETED) 1,000 mg (1 g), intravenous, at 300 mL/hr, Administer over 20 Minutes, Once, On Mon07/05/23 at 0700, For 1 dose, Intra-Op, Administer in OR just before dropping tourniquet 0911 (Given - Provider: Evan Hernandez APRN, KIRSTIN, R.N.) Continuous Medication Order 07/04/2023 07/05/2023 07/06/2023 Lactated Ringer's (CANCELED) 20 mL/hr, intravenous, Continuous, Starting on Mon07/05/23 at 0645, Pre-Op 0719 (New Bag - Provider: Natali Penaloza R.N.)0745 (Paused - Provider: Evan Hernandez APRN, KIRSTIN, R.N. - Comment: Switch to gravity)0746 (Restarted - Provider: Evan Hernandez APRN, KIRSTIN, R.N.)0924 (New Bag - Provider: Evan Hernandez APRN, KIRSTIN, R.N.) Lactated Ringer's 50 mL/hr, intravenous, Continuous, Starting on Mon07/05/23 at 1130 1118 (Continued from OR - Provider: Dianne Barron R.N.)1832 (Stopped - Provider: Dianne Barron R.N.) PRN Medication Order 07/04/2023 07/05/2023 07/06/2023 bisacodyL suppository 10 mg (DULCOLAX) 10 mg, rectal, Daily PRN, constipation, Starting on Mon07/05/23 at 1101, Ordered sequence of administration: polyethylene glycol, then bisacodyl until BM achieved. chlorhexidine 0.12 % mouthwash 15 mL (PERIDEX) (COMPLETED) 15 mL, swish & spit, Once as needed, Chlorhexidine mouthwash (Peridex) should be given if patient did not complete oral care, if completion is greater than 4 hours prior to surgery or procedure start time and they do not have the opportunity to brush their teeth now (or at this time)., Starting on Mon07/05/23 at 0630, For 1 dose, Pre-Op, Instruct patient to swish entire content of Chlorhexidine 0.12% mouthwash (PERIDEX) 15 mL cup for 30 seconds, then spit, swish & spit. If patient is at risk for aspiration, apply Chlorhexidine 0.12% mouthwash to a swab and gently swab the patient's teeth and gums. Ensure swab is not oversaturated. 0714 (Given - Provider: Natali Penaloza R.N.) dextrose 40 % gel 15 g (GLUTOSE) 15 g, oral, As needed, low blood sugar, For glucose 51-70 mg/dL, Starting on Mon07/05/23 at 1536, If patient is conscious and able to swallow safely and has a fuctioning gastrointestinal tract or on Acarbose (Precose??) or Miglitol (Glyset??). May use tablets or gel. dextrose 50 % injection 12.5 g 12.5 g, intravenous, As needed, low blood sugar, For glucose 51-70 mg/dL, Starting on Mon07/05/23 at 1536, If the patient has intravenous access available, is not able to take oral feeding safely, does not have a functioning gastrointestinal tract or feeding tube, or is NPO, administer D50W intravenously. dextrose 50 % injection 25 g 25 g, intravenous, As needed, low blood sugar, For glucose less than 50 mg/dL, Starting on Mon07/05/23 at 1536, If intravenous access is available, administer D50W intravenously fentaNYL injection 25 mcg (SUBLIMAZE) 25 mcg, intravenous, Every 2 min PRN, moderate pain or score 4-6 of 10, severe pain or score 7-10 of 10, Starting on Mon07/05/23 at 0959, PACU & Post-Op, Up to maximum total dose of 200 mcg glucagon injection 1 mg (GlucaGen) 1 mg, subcutaneous, Once as needed, low blood sugar, For glucose 51-70 mg/dL, Starting on Mon07/05/23 at 1536, For 1 dose, If patient is not able to take oral feeding safely, does not have a functioning gastrointestinal tract or feeding tube, or is NPO. Following treatment with Glucagon, a source of glucose should be started to maintain blood glucose level (e.g., patient should eat oral carbohydrates if allowed or perscriber should be contacted to consider starting fluids containing dextrose) Glucagon may only be given once per hypoglycemia episode. glucagon injection 1 mg (GlucaGen) 1 mg, subcutaneous, Once as needed, low blood sugar, For glucose less than 50 mg/dL, Starting on Mon07/05/23 at 1536, For 1 dose, If intravenous access not available and patient is not able to take oral feeding safely, does not have a functioning gastrointestinal tract or feeding tube. glucose chewable tablet 16 g 16 g, oral, As needed, low blood sugar, For glucose 51-70 mg/dL, Starting on Mon07/05/23 at 1536, If patient is conscious and able to swallow safely and has a functioning gastrointestinal tract or on Acarbose (Precose??) or Miglitol (Glyset??). Administer 4 tablets to total 16 grams. May use tablets or gel. granisetron (PF) injection 1 mg (KYTRIL) (COMPLETED) 1 mg, intravenous, Once as needed, nausea, vomiting, Starting on Mon07/05/23 at 0959, For 1 dose, PACU (only), If patient does not respond to ondansetron or haloperidol. (order of antiemetic administration - ondansetron then haloperidol then granisetron) 1031 (Given - Provider: Yennifer Salas RJudithNJudith) haloperidol lactate injection 1 mg (HALDOL) 1 mg, intravenous, Every 6 hours PRN, nausea, vomiting, Starting on Mon07/05/23 at 1101, For 48 hours, Total of 3 doses in 24 hour period. RASS must be -2 or higher to administer. Reassess for nausea or vomiting after at least 10 minutes. If nausea or vomiting persists administer next ordered antiemetic medications (order for antiemetic medication administration ondansetron then haloperidol then prochlorperazine) 1247 (Given - Provider: Dianne Barron R.N.) HYDROmorphone injection 0.5 mg (DILAUDID) 0.5 mg, intravenous, Every 2 hour PRN, severe pain or score 7-10 of 10, Starting on Mon07/05/23 at 1101, For 2 doses, May administer if pain is greater than 7 after scheduled and PRN regimen exhausted. If pain remains greater than 7, notify primary service. naloxone injection 0.2 mg 0.2 mg, intravenous, As needed, respiratory depression, Starting on Mon07/05/23 at 1101, For RASS Score -4 or less, respiratory rate of less than 8 breaths/min. Notify provider/service and rapid response team (if available at institution). ondansetron (PF) injection 4 mg (ZOFRAN) 4 mg, intravenous, Every 6 hours PRN, nausea, vomiting, Starting on Mon07/05/23 at 1101, For 48 hours, Reassess for nausea or vomiting after at least 10 minutes. If nausea or vomiting persists administer next ordered antiemetic medications (order for antiemetic medication administration ondansetron then haloperidol then prochlorperazine). oxyCODONE IR tablet 10 mg (ROXICODONE)(Linked Group 1) 10 mg, oral, Every 4 hours PRN, severe pain or score 7-10 of 10, Starting on Mon07/05/23 at 1101, Second line therapy. If patient is greater than 7 after 2 hours, call service for new order. oxyCODONE IR tablet 5 mg (ROXICODONE)(Linked Group 1) 5 mg, oral, Every 4 hours PRN, moderate pain or score 4-6 of 10, Starting on Mon07/05/23 at 1101, Second line therapy polyethylene glycol powder packet 1 packet (MIRALAX) 1 packet, oral, Daily PRN, constipation, Starting on Mon07/05/23 at 1101, Ordered sequence of administration: polyethylene glycol, then bisacodyl until BM achieved. Avoid mixing with starch-based thickened liquids. povidone-iodine 0.25% in NaCl 0.9% sterile irrigation solution (CANCELED) As needed, Starting on Mon07/05/23 at 0832, Intra-Op 0832 (Given - Provider: Uriel Renner M.D.) prochlorperazine injection 5 mg (COMPAZINE) 5 mg, intravenous, Every 6 hours PRN, nausea, vomiting, Starting on Mon07/05/23 at 1101, For 48 hours, RASS must be -2 or higher to administer. Reassess for nausea/vomiting after at least 10 minutes. If nausea or vomiting persists administer next ordered antiemetic medications (order for antiemetic medication administration ondansetron then haloperidol then prochlorperazine) 1349 (Given - Provider: Dianne Barron R.N.) ROPivacaine (PF) 100 mg, EPINEPHrine 50 mcg, ketorolac 15 mg in NaCl 0.9% 60 mL injection (ARTHROPLASTY BLOCK 50-74.9 kg) (CANCELED) As needed, Starting on Mon07/05/23 at 0832, Intra-Op 0832 (Given - Provider: Uriel Renner M.D.) traMADoL tablet 100 mg (ULTRAM)(Linked Group 2) 100 mg, oral, Every 6 hours PRN, severe pain or score 7-10 of 10, Starting on Mon07/05/23 at 1101, First line therapy or for pain greater than comfort goal (not to exceed 400 mg in 24 hours)., Restriction Criteria (Pharmacy will review and approve if criteria met): Use in adults 18 years and older traMADoL tablet 50 mg (ULTRAM)(Linked Group 2) 50 mg, oral, Every 6 hours PRN, moderate pain or score 4-6 of 10, Starting on Mon07/05/23 at 1101, First line therapy, Restriction Criteria (Pharmacy will review and approve if criteria met): Use in adults 18 years and older Linked Groups Order Group 1: oxyCODONE IR tablet 5 mg (ROXICODONE)Jump to med 5 mg, oral, Every 4 hours PRN, moderate pain or score 4-6 of 10, Starting on Mon07/05/23 at 1101, Second line therapy Or oxyCODONE IR tablet 10 mg (ROXICODONE)Jump to med 10 mg, oral, Every 4 hours PRN, severe pain or score 7-10 of 10, Starting on Mon07/05/23 at 1101, Second line therapy. If patient is greater than 7 after 2 hours, call service for new order. Group 2: traMADoL tablet 50 mg (ULTRAM)Jump to med 50 mg, oral, Every 6 hours PRN, moderate pain or score 4-6 of 10, Starting on Mon07/05/23 at 1101, First line therapy, Restriction Criteria (Pharmacy will review and approve if criteria met): Use in adults 18 years and older Or traMADoL tablet 100 mg (ULTRAM)Jump to med 100 mg, oral, Every 6 hours PRN, severe pain or score 7-10 of 10, Starting on Mon07/05/23 at 1101, First line therapy or for pain greater than comfort goal (not to exceed 400 mg in 24 hours)., Restriction Criteria (Pharmacy will review and approve if criteria met): Use in adults 18 years and older documented in this encounter Care Teams Children'S Tutor Relationship Specialty Start Date End Date None Reported, Pcp PCP - General Family Medicine 07/05/23 documented as of this encounter
--- OUTSIDE RECORDS SUMMARY | 2023-09-13 11:33 | XMS_ITS | Encounter Summary ---
Author Name Unknown Organization [facility] Address [address] [place] [address] Care Team Providers Care Bleaching Machine Operator Name Role Phone None Reported, Pcp Primary Care Provider Unavail able Reason for Visit * Reason Comments Pre-op Exam Right knee manipulat ion. DOS- 08/29/2023. * Outpatient (Routine) - Closed Specialty Diagnoses / Procedures Referred By Carley shields Referred To Contact Family Medicine Diagnoses Aftercare Total Knee Arthroplasty Amanda Scott APRN, C.N.P., D.N.P. [address] [place] [address] [facility] Region Referral ID Status Reason Start Date Expiration Date Visits Re quested Visits Authorized [id number] Closed 08/22/2023 08/21/2024 1 1 Encounter Details Date Type Department Care Team (Latest Contact Info) Description 08/24/2023 11:00 AM TRIGONOMETRY TUTOR Office Visit Department of Family Medicine, [facility], in [address] [phone] Candice Barcenas APRN, C.N.P. [address] [place] [address] Aftercare Total Knee Arthroplasty (Primary Dx); History Of Falling; Primary Osteoarthritis Knee Right; Preoperative Exam Discharge Disposition: Home or Self Care Social [...] Comments Blood Pressure 136/76 08/24/2023 11:00 AM TRIGONOMETRY TUTOR Pulse 76 08/24/2023 11:00 AM TRIGONOMETRY TUTOR Temperature 36.2 ??C (97.2 ??F) 08/24/2023 10:[address] Respiratory Rate 14 08/24/2023 10:57 AM TRIGONOMETRY TUTOR Oxygen Saturation 98% 08/24/2023 10:57 AM TRIGONOMETRY TUTOR Inhaled Oxygen Concentration - - Weight 60 kg (132 lb 4.4 oz) 08/24/2023 10:57 AM TRIGONOMETRY TUTOR Height 162.8 cm (5' 4.09) 08/24/2023 10:[address] Body Mass Index 22.64 08/24/2023 10:57 AM TRIGONOMETRY TUTOR documented in this encounter H&P Notes * Candice Barcenas, EDGAR, C.N.P. - 08/24/2023 11:00 AM CST SUBJECTIVE Heather Harrell [phone] DATE OF SURGERY: 08/29/23 DATE OF EXAM: 08/24/23 TYPE OF SURGERY: Right knee Manipulation CHIEF COMPLAINT/REASON FOR VISIT Preoperative consultation. HISTORY OF PRESENT ILLNESS Heather Harrell is a pleasant 77 y.o. female, with a history of primary osteoarthritis, hyperlipidemia, diabetes type 2, hypothyroidism, history of falls, that presents to the clinic today for comprehensive preoperative exam. REVIEW OF SYSTEMS There is no history of difficulty with anesthesia, bleeding tendencies, blood clots, congestive heart failure, heart valve disease, heart arrhythmias, chest pain or dyspnea. The patient is able to climb a flight of stairs without any chest pain, dyspnea or extreme fatigue. Patient denies any recentillness. No fevers or signs of upper respiratory tract infection. Review of systems is otherwise negative with the exceptions of the positives/negatives listed above. FAMILY HISTORY No family history of difficulty with anesthesia, bleeding tendencies or blood clotting disorders. OBJECTIVE VITAL SIGNS Vitals: 08/24/23 1100 BP: 136/76 Pulse: 76 Resp: Temp: SpO2: PHYSICAL EXAMINATION General: Awake, alert and oriented x3, comfortable. Affect normal. HEENT: Pupils equal, round, reactive to light. Extraocular movements intact. Conjunctivae not injected. External auditory canals are clear. Nasopharynx without erythema. No tonsillar hypertrophy or exudate. Mucous membranes are moist. Dentition and gums intact. Neck supple without lymphadenopathy. Heart: Regular rate and rhythm. No murmurs, gallops or rubs. Lungs: Clear to auscultation bilaterally. Extremities: Warm and well perfused. No cyanosis or edema. Skin: No erythema or rashes. No open sores or ulcers. DIAGNOSTICS Results for orders placed or performed in visit on 08/24/23 Basic Metabolic Panel Result Value Ref Range Potassium, P 4.5 3.6 - 5.2 mmol/L Sodium, P 136 135 - 145 mmol/L Chloride, P 100 98 - 107 mmol/L Bicarbonate, P 28 22 - 29 mmol/L Anion Gap, P 8 7 - 15 BUN (Blood Urea Nitrogen), P 14 6 - 21 mg/dL Creatinine 0.64 0.59 - 1.04 mg/dL Estimated GFR (eGFR) >90 >=60 mL/min/BSA Calcium, Total, P 10.0 8.8 - 10.2 mg/dL Glucose, P 111 70 - 140 mg/dL ASSESSMENT / PLAN IMPRESSION/REPORT/PLAN: #1 Aftercare Total Knee Arthroplasty Patient has had recent surgery in Jun 2023. Updated labs completed and reviewed. Blood work and EKG is WNL today. This patient has been deemed to be MEDICALLY ACCEPTABLE for the planned surgery/procedure. History of Heart disease: none History of Lung disease: none Stop Bang Total Score: 3 Other risk factors: none Preoperative instructions discussed and understanding indicated: Follow all preop hospital/center instructions. IF TAKING ASPIRIN/NSAIDs: Stop aspirin/NSAIDs 1 week before procedure and resume 1 day after theprocedure unless instructed otherwise. IF TAKING ANY ANTICOAGULANTS: Stop other anticoagulants per instructions of hospital/center or, if no instructions provided, stop anticoagulants 5 days before procedure and resume 1 day after the procedure unless instructed otherwise. IF TAKING ORAL DIABETES MEDS: Hold on the day of the procedure and resume 1 day after the procedure unless instructed otherwise. IF TAKING IRVIN INHIBITOR OR ARB (LISINOPRIL OR LOSARTAN): Hold IRVIN inhibitor/ARB/diuretic on the day of the procedure and resume 1 day after the procedure unless instructed otherwise. IF TAKING a DIURETIC (LASIX or HCTZ or spironolactone): Please hold the on the day of the procedure and resume 1 day after the procedure unless instructed otherwise. IF TAKING INSULIN: Hold basal insulin on the day of the procedure and resume once eating. IF TAKING SUPPLEMENTS: Stop all supplements 1 week prior to procedure and may resume 1 day afterthe procedure unless instructed otherwise. IF TAKING DMARDs as a part of medication regimen: - hydrochloroquine can be continued uninterrupted. - methotrexate should be held for 2 wks prior if low CRCL. - methotrexate can be continued weekly if normal CRCL. - azathioprine and sulfasalazine should be held for 1 wk prior. IF TAKING ALLOPURINOL: Hold allopurinol on the day of the procedure and resume the following dayunless instructed otherwise. Patient was instructed to follow up in primary care with concerns. Plan was discussed with patient and is in agreement with plan. All questions were answered, side effects of any/all new medications were discussed. Patient left in no acute distress. Ready to learn. No apparent learning barriers were identified. Learning preferences include listening. Explained diagnosis and treatment plan. Patient/Child/Caregiver expressed understanding of the content. Candice Barcenas APRN, C.N.P. ONOMETRY TUTOR documented in this encounter Plan of Treatment Upcoming Encounters Date Type Department Care Team (Late st Contact Info) Description 09/26/2023 10:30 AM TRIGONOMETRY TUTOR Office Visit Department of Orthopedic Surgery in [address] [phone] Amanda Scott APRN, C.N.P., D.N.P. [address] [place] [phone] Discharge Disposition: Home or Self Care documented as of this encounter Procedures Procedure Name Priority Date/Time Associated Diagnosis Comments BASIC METABOLIC PANEL, S/P Routine 08/24/2023 11:58 AM TRIGONOMETRY TUTOR Preoperative Exam documented in this encounter Results * Basic Metabolic Panel (08/24/2023 11:58 AM TRIGONOMETRY TUTOR) Potassium, P 4.5 3.6 - 5.2 mmol/L 08/24/2023 12:27 PM TRIGONOMETRY TUTOR CNFL Sodium, P 136 135 - 145 mmol/L 08/24/2023 12:27 PM TRIGONOMETRY TUTOR CNFL Chloride, P 100 98 - 107 mmol/L 08/24/2023 12:27 PM TRIGONOMETRY TUTOR CNFL Bicarbonate, P 28 22 - 29 mmol/L 08/24/2023 12:27 PM TRIGONOMETRY TUTOR CNFL Anion Gap, P 8 7 - 15 08/24/2023 12:27 PM TRIGONOMETRY TUTOR CNFL BUN (Blood Urea Nitrogen), P 14 6 - 21 mg/dL 08/24/2023 12:27 PM TRIGONOMETRY TUTOR CNFL Creatinine 0.64 0.59 - 1.04 mg/dL 08/24/2023 12:27 PM TRIGONOMETRY TUTOR CNFL Estimated GFR (eGFR) >90 >=60 mL/min/BSA 08/24/2023 12:27 PM TRIGONOMETRY TUTOR CNFL Comment: Estimated GFR calculated using the 2020 CKD_EPI creatinine equation. Calcium, Total, P 10.0 8.8 - 10.2 mg/dL 08/24/2023 12:27 PM TRIGONOMETRY TUTOR CNFL Glucose, P 111 70 - 140 mg/dL 08/24/2023 12:27 PM TRIGONOMETRY TUTOR CNFL Blood (Blood, Venous) 08/24/2023 11:58 AM TRIGONOMETRY TUTOR 08/24/2023 12:00 PM TRIGONOMETRY TUTOR Candice Barcenas APRN C.N.P. LAB BLOOD ADD -ON [facility] [address] [place] [phone], [facility] CNFL [facility] in [address] [address] documented in this encounter Visit Diagnoses Diagnosis Aftercare Total Knee Arthroplasty- Primary History Of Falling Primary Osteoarthritis Knee Right Preoperative Exam documented in this encounter Care Teams Bleaching Machine Operator Relationship Specialty Start Date End Date None Reported, Pcp PCP - General Family Medicine 07/05/23 documented as of this encounter
--- OUTSIDE RECORDS SUMMARY | 2023-09-13 11:33 | XMS_ITS | Encounter Summary ---
Author Name Unknown Organization [facility] Address [address] [place] [address] Care Team Providers Care Lacrosse Coach Name Role Phone None Reported, Pcp Primary Care Provider Unavail able Reason for Referral * Outpatient (Routine) - Closed Specialty Diagnoses / Procedures Referred By Carley t Referred To Contact Orthopedic Surgery Uriel Renner M.D. [address] [place] [address] [facility] Referral ID Status Reason Start Date Expiration Date Visits Re quested Visits Authorized [id number] Closed 07/21/2023 07/20/2026 1 1 S ROUTE DRIVER HELPER * Outpatient (Routine) - Closed Specialty Diagnoses / Procedures Referred By Carley t Referred To Contact Diagnoses Pain Knee Right Arthroplasty Total Knee Replacement Status Post Right Procedures DX Knee Right 3 Views Uriel Renner M.D. [address] [place] [phone] [facility] Region Referral ID Status Reason Start Date Expiration Date Visits Re quested Visits Authorized [id number] Closed 07/21/2023 07/20/2024 1 1 S ROUTE DRIVER HELPER Reason for Visit * Reason Comments Post-op * Outpatient (Routine) - Closed Specialty Diagnoses / Procedures Referred By Contkendra t Referred To Contact Orthopedic Surgery Uriel Renner M.D. [address] [place] [address] [facility] Region Referral ID Status Reason Start Date Expiration Date Visits Re quested Visits Authorized [id number] Closed 05/23/2023 05/22/2026 1 1 Encounter Details Date Type Department Care Team (Late st Contact Info) Description 07/21/2023 10:15 AM SALES ROUTE DRIVER HELPER Office Visit Department of Orthopedic Surgery in [address] [phone] Uriel Renenr M.D. [address] [place] [phone] Pain Knee Right (Primary Dx); Arthroplasty Total [...] Family Three times a week 04/11/2019 Attends [employer] Not on file 04/11 Active Member [...] PM CDT documented as of this encounter Consult Notes * Uriel Renner M.D. - 07/21/2023 10:15 AM CST HISTORY OF PRESENT ILLNESS Heather is a 77-year-old woman here in regard to her right knee. She is status post a right total knee arthroplasty. She is doing well at this point in time. Denies any substantial troubles. OBJECTIVE PHYSICAL EXAMINATION Musculoskeletal: Examination of her knee, her incision appears benign. Her knee range of motion is from 0 to approximately 90 degrees. She is stable to varus and valgus stress. Her quadriceps strength is 4/5 compared to the contralateral side. ASSESSMENT / PLAN Heather is a 77-year-old woman status post total knee arthroplasty robotically assisted CT-guided total knee arthroplasty. She is doing well at this point in time. We will have her continue to work with physical therapy on knee range of motion and strengthening activities. We will plan to see her back in another 4 weeks to make sure things are progressing along well. S ROUTE DRIVER HELPER documented in this encounter Plan of Treatment Upcoming Encounters Date Type Department Care Team (Late st Contact Info) Description 09/26/2023 10:30 AM SALES ROUTE DRIVER HELPER Office Visit Department of Orthopedic Surgery in [address] [phone] Amanda Scott APRN, C.N.P., D.N.P. [address] [place] [phone] Discharge Disposition: Home or Self Care Scheduled Referrals Name Type Priority Associated Diagnoses Order Schedule Orthopedic Surgery Post Op (clinic) Outpatient Referral Routine Expected: 08/22/2023, Expires: 10/19/2024 documented as of this encounter Results * DX Knee Right 3 Views (07/21/2023 10:32 AM SALES ROUTE DRIVER HELPER) Anatomical Region Laterality Modality Lower Extremity, Knee, Muscu loskeletal RST LOS, Musculoskeletal ARZ LOS, Muskuloskeletal FLA LOS Right Digit al Radiography 07/21/2023 10:5 4 AM SALES ROUTE DRIVER HELPER Impressions 07/21/2023 10:57 AM SALES ROUTE DRIVER HELPER Images are interpreted with comparison to CT 06/29/2023. Indwelling right knee arthroplasty with components present and expected position/alignment. No periprosthetic fracture. Mild periarticular soft tissue swelling and small joint effusion. Pin tracks within the distal femur and proximal tibia. Visualized left knee arthroplasty within normal limits. Narrative 07/21/2023 10:57 AM SALES ROUTE DRIVER HELPER EXAM: DX KNEE RIGHT 3 VIEWS Procedure [...] arthroplasty within normal limits. Uriel Renner M.D. [facility] DIAGNOSTIC NIL[employer] GING PROCEDURES documented in this encounter Visit Diagnoses Diagnosis Pain Knee Right- Primary Arthroplasty Total Knee Replacement Status Post Right Pain Knee Right Arthroplasty Total Knee Replacement Status Post Right documented in this encounter Care Teams Lacrosse Coach Relationship Specialty Start Date End Date None Reported, Pcp PCP - General Family Medicine 07/05/23 documented as of this encounter
--- OUTSIDE RECORDS SUMMARY | 2023-09-13 11:33 | XMS_ITS | Encounter Summary ---
Author Name Unknown Organization [facility] Address [address] [place] [address] Care Team Providers Care Cashier And Waiter/Waitress Name Role Phone None Reported, Pcp Primary Care Provider Unavail able Reason for Visit * Outpatient (Routine) - Closed Specialty Diagnoses / Procedures Referred By Carley t Referred To Contact Anesthesiology Diagnoses Aftercare Total Knee Arthroplasty Amanda Scott APRN, C.N.P., D.N.P. [address] [place] [phone] [facility] Region Referral ID Status Reason Start Date Expiration Date Visits Re quested Visits Authorized [id number] Closed 08/22/2023 08/21/2024 1 1 Encounter Details Date Type Department Care Team (Latest Contact Info) Description 08/25/2023 10:45 AM COTTRELL BLOWER Virtual Visit Preoperative Evaluation Center in [place], [place] [address] [place] [phone] Amanda Scott APRN, C.N.P., D.N.P. [address] [place] [phone] Milly Mason, RTang [address] [place] [phone] Preanesthetic Medical Exam (Primary Dx); Aftercare Total Knee Arthroplasty Discharge Disposition: Home or Self Care Social [...] Family Three times a week 04/11/2019 Attends Confucianism Services Not on file 04/11 Active Member [...] as of this encounter Progress Notes * Milly Mason, R.N. - 08/25/2023 10:45 AM CST AMAYA Nurse visit completed. Surgery Nurse Jack Prizer Skin Alert Assessment: Complete this section only if the patient is greater than or equal to 18 y/o BMI <19 or >50: No BMI 22.64 Documented risk factors that indicate higher risk for pressure ulcer? Yes Do you have impaired sensation? No Is patient chair-bound or unable to reposition themselves? No Anesthesia Risk Assessment: Do you have an implanted cardiac device? No Do you have difficulties lying flat? No Comment: Do you have any evangelical or other objection to having a blood transfusion? No Teaching: Preoperative education was done with (x) patient () parent . It was confirmed the patient/family member had received the following preoperative education sheets: Checklist For Surgical Patients ([id number]),???Surgical Site Infections: Reducing Your Risk ([id number]), Speak Up: Antibiotics ([id number]), Acute Pain and the Healing Process ( [id number]) with the [facility] and [facility] ([id number]), and ???Appointments RequiredBefore Your Surgery?? (no MC). These were reviewed in detail. (x) Preoperative medication education provided through [facility] Expert Knee Manipulation-CPM set-up: (yes) N/A () Yes and PT notified, completing at an external facility Patient is ready to learn, no apparent learning barriers were identified. Reviewed diagnosis and treatment plan; patient verbalized understanding through teach back. All questions were answered. Patient has contact information and understands the need to call with any questions or concerns. Post op appointments: 1st po with surgeon or physician security assistant: () made (x)TBD RELL BLOWER documented in this encounter Plan of Treatment Upcoming Encounters Date Type Department Care Team (Late st Contact Info) Description 09/26/2023 10:30 AM COTTRELL BLOWER Office Visit Department of Orthopedic Surgery in [address] [phone] Amanda Scott APRN, C.N.P., D.N.P. [address] [place] [phone] Discharge Disposition: Home or Self Care documented as of this encounter Visit Diagnoses Diagnosis Preanesthetic Medical Exam- Primary Aftercare Total Knee Arthroplasty documented in this encounter Care Teams Cashier And Waiter/Waitress Relationship Specialty Start Date End Date None Reported, Pcp PCP - General Family Medicine 07/05/23 documented as of this encounter
--- OUTSIDE RECORDS SUMMARY | 2023-09-13 11:33 | XMS_ITS | Encounter Summary ---
Author Name Unknown Organization [facility] Address [address] [place] [address] Care Team Providers Care Rivet Passer Name Role Phone None Reported, Pcp Primary Care Provider Unavail able Encounter Details Date Type Department Care Team (Late st Contact Info) Description 08/22/2023 Clinical Communication Department of Orthopedic Surgery in [address] [phone] Uriel Renner M.D. [address] [place] [phone] Social History Tobacco Use Types Packs/Day Years [...] Family Three times a week 04/11/2019 Attends [employer] Services Not on file 04/11 Active Member [...] Encounter - Faiza Paredes R.N. - 08/28/2023 10:58 AM CST Called [facility] [employer] and requested a prior auth be submitted for the CPM that was ordered from [employer]. [facility] [employer] will put in the request for this prior auth. BUSINESS OBJECTS CONSULTANT * Telephone Encounter - Faiza Paredes R.N. - 08/25/2023 11:35 AM CST Heather has called [employer] this morning. She was told that we would not be doing a block and she would have mild sedation. Amanda states she also discussed this at her appointment on Monday when she saw her and set up the manipulation. BUSINESS OBJECTS CONSULTANT * Addendum Note - Missy Linares R.N. - 08/24/2023 1:41 PM CSTAddended by: MISSY LINARES on: 08/24/2023 01:41 PM Modules accepted: Orders BUSINESS OBJECTS CONSULTANT * Telephone Encounter - Faiza Paredes R.N. - 08/22/2023 2:30 PM [employer] BUSINESS OBJECTS CONSULTANT Heather is scheduled for right knee manipulation in [place] on August 29 in [place]. BUSINESS OBJECTS CONSULTANT documented in this encounter Plan of Treatment Upcoming Encounters Date Type Department Care Team (Late st Contact Info) Description 09/26/2023 10:30 AM [employer] BUSINESS OBJECTS CONSULTANT Office Visit Department of Orthopedic Surgery in [address] [phone] Amanda Scott APRN, C.N.P., D.N.P. [address] [place] [phone] Discharge Disposition: Home or Self Care documented as of this encounter Visit Diagnoses Diagnosis Arthroplasty Total Knee Replacement Status Post Right- Primary documented in this encounter Care Teams Rivet Passer Relationship Specialty Start Date End Date None Reported, Pcp PCP - General Family Medicine 07/05/23 documented as of this encounter
--- OUTSIDE RECORDS SUMMARY | 2023-09-13 11:34 | XMS_ITS | Encounter Summary ---
Author Name Unknown Organization [facility] Address [address] [place] [address] Care Team Providers Care Refrigeration Service Technician Name Role Phone Unavailable Primary Care Provider Unavailabl e Reason for Visit * Outpatient (Routine) - Closed Specialty Diagnoses / Procedures Referred By Carley shields Referred To Contact Orthopedic Surgery Joey Montenegro M.D. [address] [place] [phone] [facility] Referral ID Status Reason Start Date Expiration Date Visits Re quested Visits Authorized [id number] Closed 02/22/2023 02/21/2026 1 1 Encounter Details Date Type Department Care Team (Late st Contact Info) Description 04/03/2023 10:00 AM CDT Office Visit Department of Orthopedic Surgery in [place], [place] [address] [place] [phone] John Mccabe P.A.-Edy., M.S. [address] [place] [phone] Spinal Stenosis Lumbar Region Without Neurogenic Claudication (Primary Dx) Social History Tobacco Use Types Packs/Day Years [...] Family Three times a week 04/11/2019 Attends Christian Services Not on file 04/11 Active Member [...] as of this encounter Progress Notes * John Mccabe P.A.-C., M.S. - 04/03/2023 10:00 AM CDT CHIEF COMPLAINT / REASON FOR VISIT Heather Harrell is a 77 y.o. female presenting today for follow up of left back, buttock and groin pain. SUBJECTIVE HISTORY OF PRESENT ILLNESS Heather aHrrell presents for follow-up regarding the above-mentioned complaint. The patient had facet cyst drainage as well as injection in September of 2022. Patient reports improved her buttock, groin as well as anterior thigh pain and paresthesias. However, the patient has had a reoccurrence of this in the last month. She now has the same buttock as well as groin pain. She is not have any anterior thigh paresthesias to this point but feels this was the same as her last bout of back pain. Sheis still taking Tylenol and utilizing heat pad help with her symptoms. However, her symptoms persist. She is scheduled for facet cyst aspiration as well as injection later this afternoon. OBJECTIVE PHYSICAL EXAM General: Patient is alert and oriented, appears to be in overall good health, in no acute distress,and well nourished. Skin: skin is warm and dry with good turgor. No rashes, lesions, erythema, or ecchymosis in areas inspected Musculoskeletal: Flexion, extension, side bending, and rotation of the spine intact and symmetric. No tenderness to palpation, deformity, or pain. Special tests: Hip scour (+) on left Lower Extremity MMT (5/5 point scale) Right Left Hip flexion 5 5 Hip extension 5 5 Hip abduction 5 5 Hip adduction 5 5 Knee extension 5 5 Knee flexion 5 5 Plantar flexion 5 5 Dorsi flexion 5 5 Neurologic: Patient is alert and oriented x 3 with normal attention, mentation, and speech exhibited. Sensation to light touch intact in bilateral upper and lower extremities. Gait is smooth and coordinated; heel,toe, and tandem walks without difficulty. IMAGING: No new imaging ASSESSMENT / PLAN #1 Spinal Stenosis Lumbar Region Without Neurogenic Claudication Unfortunately, the patient has a reoccurrence of her back, buttock and groin pain. She does have facet cyst aspiration and epidural steroid injection scheduled for later this afternoon. We did discuss that since the patient does not have an updated MRI since her last procedure, we will perform the procedure based on the understanding of her most recent MRI. If she gets substantial improvement of her symptoms then I think she unfortunately was dealing with a reoccurrence of her facet cyst and radicular features. If she is not receive substantial improvement, we will need to reimage her lumbar spine. Additionally, she had mildly provocative maneuvers at her left hip. She does have hip x-rays from earlier this year which did not show any notable arthritis that would be causing referral to her groin. However, this may be needed to be investigated further at that time. Patient is agreement this plan. Other orders - Orthopedic Surgery office visit (clinic) There are no Patient Instructions on file for this visit. Michael Mccabe P.A.-C., M.S., 04/03/2023, 10:37 AM CDT documented in this encounter Plan of Treatment Upcoming Encounters Date Type Department Care Team (Late st Contact Info) Description 09/26/2023 10:30 AM MOLECULAR BIOLOGY DIRECTOR Office Visit Department of Orthopedic Surgery in [address] [phone] Amanda Scott APRN, C.N.P., D.N.P. [address] [place] [phone] Discharge Disposition: Home or Self Care documented as of this encounter Visit Diagnoses Diagnosis Spinal Stenosis Lumbar Region Without Neurogenic Claudication- Primary documented in this encounter
--- OUTSIDE RECORDS SUMMARY | 2023-09-13 11:34 | XMS_ITS | Encounter Summary ---
Author Name Unknown Organization [facility] Address [address] [place] [address] Care Team Providers Care Hat Model Name Role Phone None Reported, Pcp Primary Care Provider Unavail able Encounter Details Date Type Department Care Team (Late st Contact Info) Description 07/05/2023 7:46 AM DOCUMENTATION COORDINATOR Anesthesia Event Outpatient Procedure Center in [place], [place] [address] [place] [phone] Chemo Olivarez M.D. [address] [place] [phone] Wilda Armendariz M.D. [address] [place] [phone] Anesthesia Record Procedure Summary Procedure Name Responsible Anesthesiologist Anesthesia Start Time Anesthesia Stop Time ROBOTIC-ASSISTED KNEE TOTAL ARTHROPLASTY (Right: Knee) Chemo Olivarez M.D. 07/05/23 0746 07/05/23 0950 Events Date Time Event Comment 07/05/2023 0708 0737 An Start Data 0739 Anesthesia Time Out 0740 Block Start 0743 Block End 0744 an stop data 0746 An Start Machine/Equipme nt Checked Infection Precautions Followed Procedure/Site Verified NPO Status Verified Supine Standard ASA Monitors Applied 0751 An Induction 0754 An Intubation 0754 Turnover to Proceduralist 0823 Proc Start 0941 Proc Fin 0945 Turnover to ANE Staff 0949 Airway Removal Criteria Met 0950 Extubation/Airway Removed 0950 An End I completed my handoff to the receiving staff during which we 1. Identified the patient 2. Identified the responsible provider 3. Reviewed the pertinent medical history 4. Discussed the surgical course 5. Reviewed intra-op anesthesia management and issues during anesthesia 6. Set expectations for post-procedure period 7. Allowed opportunity for questions and acknowledgement of understanding. Meds Name Total fentaNYL PF injection 50 mcg/mL 100 mcg propofol 10 mg/mL infusion 239.71 mg ceFAZolin injection 2,000 mg (ANCEF) 2 g tranexamic acid in NaCl IVPB 1,000 mg (C YKLOKAPRON) 1 g tranexamic acid in NaCl IVPB 1,000 mg (C YKLOKAPRON) 1 g lidocaine 2% (mg) injection 40 mg succinylcholine 20 mg/mL injection 120 m g phenylephrine 100 mcg/mL injection 400 m cg ePHEDrine PF 5 mg/mL syringe injection 2 0 mg ondansetron 4 mg/2 mL injection 4 mg propofol 10 mg/mL injection 120 mg BUPivacaine (MARCAINE) PF injection 0.25 % 15 mL dexmedeTOMIDine (PRECEDEX) injection 200 mcg/2 mL anes only 50 mcg HYDROmorphone 1 mg/mL injection 0.5 mg dexAMETHasone (DECADRON) injection 4 mg/ mL 4 mg Lactated Ringer's 1,000 mL * Agents No agents on file. * Blood No blood administrations on file. Lines, Drains, and Airways Type Details Placement Removal Wound 07/05/23; N; Incisio n; Knee; Anterior, Right; manuel,rishabh,6'' double teo 07/05/23 0000 by Raquel Cross, R.N. (RETIRED- use LDA Wound) Puncture 04/03/23; 1231; No; Spine; Left, Lower; Left L4-5 facet cyst asp and injection plus left L4-5 TFE x 2 sites; 07/05/23; 0959 04/03/23 1231 by Raquel Pete, L.P.N. 07/05/23 0959 by Yennifer Salas, R.NJudith Peripheral IV Placement Date: 06/15 10/06; Placement Time: 07; Catheter Size: 20 G; Orientation: Lower, Posterior, Right; Location: Forearm; Site Prep: Chlorhexidine (Preferred); Technique: Anatomical landmarks; Removal Date: 07/05/23; Removal Time: 1034; Removal Reason: Other (Comment) (charted on wrong side) 07/05/23 0728 by Natali Penaloza RJudithNJudith 07/05/23 1034 by Yennifer Salas RJudithNJudith ETT Placement Date: 06/15 10/06; Placement Time: 0754 (created via procedure documentation); Mask Ventilation: Easy mask; Technique: Direct laryngoscopy, intubation; Type: Standard ETT; Single Lumen Tube Size: 7 mm; Cuffed: Yes; Blade Size: Martinez 2; Location: Oral; Grade View: Grade 3A; Insertion Attempts: 1; Placement Verification: Bilateral breath sounds, Positive ETCO2, Symmetrical chest wall movement; Removal Date: 07/05/23; Removal Time: 0950 07/05/23 0754 by Evan Hernandez APRN, CRNA, R.N. 07/05/23 0950 by Evan Hernandez APRN, CRNA, R.N. documented in this encounter Social History Tobacco [...] Family Three times a week 04/11/2019 Attends [employer] Not on file 04/11 Active Member [...] PM CDT documented as of this encounter OR Notes * Anesthesia Postprocedure Evaluation - Chemo Olivarez M.D. - 07/05/2023 10:40 AM CST Patient: Heather Harrell Procedure Summary Date: 07/05/23 Room / Location: [place] [address] / [facility] - Anesthesia Start: 745 Anesthesia Stop: 949 Procedure: ROBOTIC-ASSISTED KNEE TOTAL ARTHROPLASTY (Right: Knee) Diagnosis: Primary Osteoarthritis Knee Right (Primary Osteoarthritis Knee Right [M17.11]) Providers: Uriel Renner M.D. Responsible Provider: Chemo Olivarez M.D. Anesthesia Type: general with pain block ASA Status: 2 Anesthesia Type: general with pain block Last vitals Vitals Value Taken Time BP 180/59 07/05/23 1025 Temp 36.3 ??C 07/05/23 1025 Pulse 67 07/05/23 1026 Resp 18 07/05/23 1026 SpO2 96 % 07/05/23 1026 Vitals shown include unfiled device data. Please reference Vitals flowsheet for most recent vital signs. Anesthesia Post Evaluation Patient Disposition: dismissal Cardiovascular status: hemodynamics (HR & BP) acceptable Respiratory status: patent airway with spontaneous effort Temperature: normothermic Oxygen requirements: room air Level of consciousness: awake Pain score: pain adequately controlled and/or at baseline Post Op nausea/vomiting: none Hydration status: euvolemic MENTATION COORDINATOR * Anesthesia Procedure Notes - Evan Hernandez APRN, CRNA, R.N. - 07/05/2023 8:12 AM CSTAssociated Order(s): Airway Airway Date/Time: 07/05/2023 7:54 AM Performed by: Evan Hernandez APRN, CRNA, R.NJudith Authorized by: Chemo Olivarez M.D. Patient location during procedure: OR / Procedure Area PROCEDURE DETAILS: Mask difficulty assessment: easy mask Final airway type: direct laryngoscopy, intubation Laryngeal Manipulation: no Final airway difficulty of direct laryngoscopy (DL): 1-some difficulty Final best view of glottic structures - Cormack/Lehane Score: grade 3A ETT location: oral Blade type: Martinez 2 Tube size: 7 ETT distance at teeth/gum: 21 Oral tube type: standard ETT Cuffed: yes Leak Test Performed: no Number of attempt to successful placement: 1 Airway confirmation: bilateral breath sounds, positive ETCO2 and bilateral chest rise Other previous techniques attempted: none PRE PROCEDURE DETAILS: Pre evaluation for airway management: procedure Urgency: elective Preoxygenation: bag valve mask SEDATION / ANESTHESIA Anesthesia method: anesthesia POST PROCEDURE DETAILS: Procedure outcome: successful Airway event: no complications MENTATION COORDINATOR * Anesthesia Procedure Notes - Evan Hernandez APRN, CRNA, R.N. - 07/05/2023 8:11 AM CSTAssociated Order(s): Regional Block Regional Block Date/Time: 07/05/2023 7:43 AM Performed by: Evan Hernandez APRN, CRNA, R.NJudith Authorized by: Chemo Olivarez M.D. Location: Pre Op / PACU PROCEDURE DETAILS: Block Indication: post-op pain block Block indication comment: Post-Op pain block at request of surgeon Block Type - Lower extremity: adductor canal Positioning: supine Laterality: right Block technique: ultrasound guided Ultrasound image guidance used to localize target, [...] advancement or injection of local anesthetic: no Injected Medications: Injection(s), anesthetic agent(s) and/or steroid; [...] for the procedure.: yes Skin prep: chlorhexidine / alcohol SEDATION / ANESTHESIA Anesthesia method: local infiltration Local infiltrate type: bupivacaine POST-PROCEDURE DETAILS: Procedure completed successfully: successful procedure Other complications: none MENTATION COORDINATOR * Anesthesia Preprocedure Evaluation - Chemo Olivarez M.D. - 07/05/2023 7:12 AM CST Preprocedure Anesthesia & H&P Assessment Procedure Summary Date/Time: 07/05/23 07 Procedure: ROBOTIC-ASSISTED KNEE TOTAL ARTHROPLASTY (Right) Diagnosis: Primary Osteoarthritis Knee Right [M17.11] Pre-op diagnosis: Primary Osteoarthritis Knee Right [M17.11] Location: [place] [address] / [facility] - Providers: Uriel Renner M.D. Pertinent components of the patient's history including current problem list, medical history, surgical history, family history, social history, medications and allergies were reviewed. Present illness and pre-op diagnosis were confirmed. The planned surgery / procedure was verified with the patient / legal guardian. The patient's general health condition remains unchanged RELEVANT COMORBID CONDITIONS ENDO (+) Diabetes Mellitus Type 2 Without Complication (HCC) (+) Hypothyroidism Other (+) Primary Osteoarthritis Knee Right Hx lumbar radiculopathy s/p injection L4L5 04/09/23 Hb 12.9, Cr 0.7 OBJECTIVE PHYSICAL EXAMINATION Airway (HEENT) Mallampati: II TM Distance: >3 FB Neck ROM: Full Mouth Opening: >3 cm Cardiovascular Rhythm: Regular Rate: Normal Functional Capacity: >4 METS Pulmonary Pulmonary Assessment: Clear and non labored General / Constitutional Constitutional Assessment: Normal General State of Health:: healthy appearing and calm Neurological Neurologic Assessment: alert and alert and oriented x 3 Dental Dental Assessment: dentition intact ASSESSMENT / PLAN ANESTHESIA PLAN ASA: 2 Anesthesia Plan: general with pain block 77 y/o F Right TKA 63.5 kg 23.5 BMI DM 2 on Metformin not taken today Hyperlipidemia- Rosuvastatin GERD- Symptomatic PONV Prior TSA VL grade 1 view DSE 1. Post stress, normal left ventricular size, increased global systolic function with an estimated EF of 70 to 75%. 2. Maximum stress test with 100.3% of age predicted maximum heart rate achieved. 3. Negative stress echo for ischemia. 4. During stress exam the patient developed no significant symptoms. 5. See separate report for EKG interpretation. Patient seen and allergies reviewed, anesthesia plan and risks discussed directly with patient /legal guardian or through an science interpreter. Risks/Benefits/Alternatives of Blood transfusion discussed with patient / legal guardian, includingan opportunity to ask questions and/or decline some or all transfusion therapies. The patient / legal guardian consented to the use of all blood products, as deemed medically necessary Approval to Proceed: approved for anesthesia MENTATION COORDINATOR documented in this encounter Plan of Treatment Upcoming Encounters Date Type Department Care Team (Late st Contact Info) Description 09/26/2023 10:30 AM DOCUMENTATION COORDINATOR Office Visit Department of Orthopedic Surgery in [address] [phone] Amanda Scott APRN, C.N.P., D.N.P. [address] [place] [phone] Discharge Disposition: Home or Self Care documented as of this encounter Procedures Procedure Name Priority Date/Time Associated Diagnosis Comments LDA ANE ENDOTRACHEAL AIRWAY Routine 07/05/2023 7:54 AM DOCUMENTATION COORDINATOR VA INJ ANES FEM NERVE W GUIDANCE Routine 07/05/2023 7:43 AM DOCUMENTATION COORDINATOR documented in this encounter Results * LDA ANE ENDOTRACHEAL AIRWAY (07/05/2023 7:54 AM DOCUMENTATION COORDINATOR) Narrative Evan Hernandez APRN, CRNA R.N. - 07/05/2023 7:54 AM DOCUMENTATION COORDINATOR Evan Hernandez APRN, CRNA R.N. ? 07/05/2023 [...] Chemo Olivarez M.D. ANESTHESIA ORDERABL ES * VA INJ ANES FEM NERVE W GUIDANCE (07/05/2023 7:43 AM DOCUMENTATION COORDINATOR) Narrative Evan Hernandez APRN, CRNA R.N. - 07/05/2023 7:43 AM DOCUMENTATION COORDINATOR Evan Hernandez APRN, CRNA R.N. ? 07/05/2023 [...] Chemo Olivarez M.D. PROCEDURE/MINOR CLARISSA GICAL ORDERABLES documented in this encounter Visit Diagnoses Not on filedocumented in this encounter Administered Medications Inactive Administered Medications - up to 3 most recent administrations Medication Order MAR Action Action Date Dose Rate Site BUPivacaine PF 0.25 % (2.5 mg/mL) injection (MARCAINE) peripheral nerve block, As needed, Starting on Mon07/05/23 at 0743, Anesthesia Intra-op Given 07/05/2023 7:43 AM DOCUMENTATION COORDINATOR 15 mL ceFAZolin injection 2,000 mg (ANCEF) 2,000 mg (rounded from 1,587.5 mg = 25 mg/kg ? 63.5 kg), intravenous, Once, On Mon07/05/23 at 0700, For 1 dose, Intra-Op, Preoperatively within 1 hour prior to surgical incision If needed, reconstitute vial per package insert instructions. See IVAG for administration guidelines., Drug Monitoring Program: Pharmacist to adjust medication dosing based on indication and drug clearance factors., Indications: Prophylaxis, surgical Given 07/05/2023 8:02 AM DOCUMENTATION COORDINATOR 2 g dexAMETHasone injection (DECADRON) intravenous, As needed, Starting on Mon07/05/23 at 0918, Anesthesia Intra-op Given 07/05/2023 9:18 AM DOCUMENTATION COORDINATOR 4 mg dexmedeTOMIDine injection (PRECEDEX) peripheral nerve block, As needed, Starting on Mon07/05/23 at 0743, Anesthesia Intra-op Given 07/05/2023 7:43 AM DOCUMENTATION COORDINATOR 50 mcg ePHEDrine (PF) injection intravenous, As needed, Starting on Mon07/05/23 at 0805, Anesthesia Intra-op Given 07/05/2023 8:12 AM DOCUMENTATION COORDINATOR 10 mg Given 07/05/2023 8:09 AM DOCUMENTATION COORDINATOR 5 mg Given 07/05/2023 8:05 AM DOCUMENTATION COORDINATOR 5 mg fentaNYL injection (SUBLIMAZE) intravenous, As needed, Starting on Mon07/05/23 at 0751, Anesthesia Intra-op Given 07/05/2023 7:51 AM DOCUMENTATION COORDINATOR 75 mcg Given 07/05/2023 7:40 AM DOCUMENTATION COORDINATOR 25 mcg HYDROmorphone injection (DILAUDID) intravenous, As needed, Starting on Mon07/05/23 at 0825, Anesthesia Intra-op Given 07/05/2023 8:42 AM DOCUMENTATION COORDINATOR 0.3 mg Given 07/05/2023 8:25 AM DOCUMENTATION COORDINATOR 0.2 mg Lactated Ringer's 20 mL/hr, intravenous, Continuous, Starting on Mon07/05/23 at 0645, Pre-Op New Bag 07/05/2023 9:24 AM DOCUMENTATION COORDINATOR Restarted 07/05/2023 7:46 AM DOCUMENTATION COORDINATOR New Bag 07/05/2023 7:19 AM DOCUMENTATION COORDINATOR 20 mL/hr 20 mL/hr lidocaine (PF) (cardiac) injection intravenous, As needed, Starting on Mon07/05/23 at 0752, Anesthesia Intra-op Given 07/05/2023 7:52 AM DOCUMENTATION COORDINATOR 40 mg ondansetron (PF) injection (ZOFRAN) intravenous, As needed, Starting on Mon07/05/23 at 0758, Anesthesia Intra-op Given 07/05/2023 7:58 AM DOCUMENTATION COORDINATOR 4 mg phenylephrine injection intravenous, As needed, Starting on Mon07/05/23 at 0910, Anesthesia Intra-op Given 07/05/2023 9:34 AM DOCUMENTATION COORDINATOR 100 mc g Given 07/05/2023 9:33 AM DOCUMENTATION COORDINATOR 100 mcg Given 07/05/2023 9:24 AM DOCUMENTATION COORDINATOR 100 mcg propofol 10 mg/mL infusion (DIPRIVAN) intravenous, Continuous Infusion: Per Instructions PRN, Starting on Mon07/05/23 at 0751, Anesthesia Intra-op Rate/Dose Change 07/05/2023 8:09 AM DOCUMENTATION COORDINATOR 35 mcg/kg/min 13.335 mL/hr Rate/Dose Change 07/05/2023 7:56 AM DOCUMENTATION COORDINATOR 50 mcg/kg/min 19.0 5 mL/hr New Bag 07/05/2023 7:51 AM DOCUMENTATION COORDINATOR 100 mcg/kg/min 38.1 mL/h r propofoL injection (DIPRIVAN) intravenous, As needed, Starting on Mon07/05/23 at 0752, Anesthesia Intra-op Given 07/05/2023 7:52 AM DOCUMENTATION COORDINATOR 120 mg succinylcholine (PF) injection (ANECTINE) intravenous, As needed, Starting on Mon07/05/23 at 0753, Anesthesia Intra-op Given 07/05/2023 7:53 AM DOCUMENTATION COORDINATOR 120 mg tranexamic acid in NaCl IVPB 1,000 mg (CYKLOKAPRON) 1,000 mg (1 g), intravenous, at 300 mL/hr, Administer over 20 Minutes, Once, On Mon07/05/23 at 0700, For 1 dose, Intra-Op, Administer in OR upon induction Given 07/05/2023 8:19 AM DOCUMENTATION COORDINATOR 1 g tranexamic acid in NaCl IVPB 1,000 mg (CYKLOKAPRON) 1,000 mg (1 g), intravenous, at 300 mL/hr, Administer over 20 Minutes, Once, On Mon07/05/23 at 0700, For 1 dose, Intra-Op, Administer in OR just before dropping tourniquet Given 07/05/2023 9:11 AM DOCUMENTATION COORDINATOR 1 g documented in this encounter Care Teams Hat Model Relationship Specialty Start Date End Date None Reported, Pcp PCP - General Family Medicine 07/05/23 documented as of this encounter
--- OUTSIDE RECORDS SUMMARY | 2023-09-13 11:34 | XMS_ITS | Encounter Summary ---
Author Name Unknown Organization [facility] Address [address] [place] [id number] Care Team Providers Care Lead Blender Name Role Phone Unavailable Primary Care Provider Unavailabl e Reason for Referral * MRI/CAT/PET Scan (Routine) - Closed Specialty Diagnoses / Procedures Referred By Contac t Referred To Contact Radiology Diagnoses Spondylosis Procedures CT Facet Synovial Cyst Aspiration or Puncture or Injection Left CT Facet Synovial Cyst Aspiration or Puncture or Injection Bilateral Joey Montenegro M.D. [address] [place] [phone] [facility] Referral ID Status Reason Start Date Expiration Date Visits Re quested Visits Authorized [id number] Closed 02/22/2023 02/22/2024 1 1 * MRI/CAT/PET Scan (Routine) - Closed Specialty Diagnoses / Procedures Referred By Contac t Referred To Contact Radiology Diagnoses Spondylosis Procedures CT Lumbar Spine Transforaminal Epidural Injection Left Joey Montenegro M.D. [address] [place] [phone] [facility] Referral ID Status Reason Start Date Expiration Date Visits Re quested Visits Authorized [id number] Closed 02/22/2023 02/22/2024 1 1 Reason for Visit * MRI/CAT/PET Scan (Routine) - Closed Specialty Diagnoses / Procedures Referred By Contac t Referred To Contact Radiology Diagnoses Spondylosis Procedures CT Lumbar Spine Transforaminal Epidural Injection Left Joey Montenegro M.D. [address] [place] [address] [facility] Referral ID Status Reason Start Date Expiration Date Visits Re quested Visits Authorized [id number] Closed 02/22/2023 02/22/2024 1 1 Encounter Details Date Type Department Care Team (Latest Contact Info) Description 04/03/2023 11:40 AM CDT - 04/03/2023 11:59 PM CDT Hospital Encounter Department of Radiology, [facility] in [place], [place] [address] [place] [address] Joey Montenegro M.D. [address] [place] [phone] Leticia Elizabeth M.D., M.B.A. [address] [place] [phone] Spondylosis Discharge Disposition: Home or Self Care Social [...] Family Three times a week 04/11/2019 Attends [employer] Services Not on file 04/11 Active Member [...] Sign Reading Time Taken Comments Blood Pressure 136/66 04/03/2023 12:47 PM CDT Pulse 78 04/03/2023 12:47 PM CDT Temperature 36.7 ??C (98 ??F) 04/03/2023 11:57 AM CDT Respiratory Rate 14 04/03/2023 11:57 AM CDT Oxygen Saturation 98% 04/03/2023 12:32 PM CDT Inhaled Oxygen Concentration - - Weight - - Height - - Body Mass Index - - documented in this encounter Medications at Time of Discharge Medication Sig Dispensed Refills Start Date End Date rosuvastatin (CRESTOR) 5 mg tablet Take 5 mg by mouth at bedtime. 3 06/04/2019 acetaminophen (TYLENOL) 500 mg tablet Take 1 tablet (500 mg total) by mouth every 6 (six) hours as needed for mild pain or score 1-3 of 10. 0 06/19/2019 07/05/2023 aspirin 81 mg chewable tablet Chew 81 mg daily. 0 10/07/2011 11/22/2 023 calcium carbonate (TUMS) 500 mg (200 mg calcium) chewable tablet Chew 1 tablet 3 (three) times a day as needed for indigestion or heartburn. 0 07/05/2023 cholecalciferol (Vitamin D3) 50 mcg (2,000 Unit) tablet Take 50 mcg by mouth daily. 0 07/05/2023 cyanocobalamin (vitamin B-12) 500 mcg tablet Take 500 mcg by mouth daily. 0 07/05/2023 estradioL (ESTRACE) 0.1 mg/g (0.01%) vaginal cream Use nightly for 14 doses, then 2-3 nights each week. 42 g 3 02/02/2021 07/05/2023 gabapentin (NEURONTIN) 100 mg capsule Take 1 capsule (100 mg total) by mouth 3 (three) times a day as needed (Pain). 90 capsule 1 11/06/2019 07/05/2023 magnesium oxide 500 mg tablet tablet Take 1 tablet by mouth daily. 0 07/05/2023 metFORMIN XR (GLUCOPHAGE-XR) 500 mg 24 hr tablet Take 1,000 mg by mouth 2 (two) times a day with meals. 3 05/21/2019 07/05/2023 omega-3 fatty acids-fish oil 300-1,000 mg capsule Take 500 mg by mouth daily. 0 07/05/2023 oxybutynin (DITROPAN) 5 mg tablet Take 2.5 mg by mouth 2 (two) times a day. 0 01/24/2021 07/05/2023 documented as of this encounter Plan of Treatment Upcoming Encounters Date Type Department Care Team (Late st Contact Info) Description 09/26/2023 10:30 AM ASSISTANT ELEMENTARY TEACHER Office Visit Department of Orthopedic Surgery in [address] [phone] Amanda Scott APRN, C.N.P., D.N.P. [address] [place] [phone] Discharge Disposition: Home or Self Care documented as of this encounter Procedures Procedure Name Priority Date/Time Associated Diagnosis Comments CT FACET SYNOVIAL CYST ASPIRATION OR PUNCTURE OR INJECTION LEFT RAD - Routine (most inpatients and all outpatients) 04/03/2023 12:[address] LUMBAR SPINE TRANSFORAMINAL EPIDURAL INJECTION LEFT RAD - Routine (most inpatients and all outpatients) 04/03/2023 12:51 PM CDT Spondylosis documented in this encounter Results * CT Facet Synovial Cyst Aspiration or Puncture or Injection Left (04/03/2023 12:51 PM CDT) Anatomical Region Laterality Modality Lumbar Spine, Musculoskeleta l RST LOS, Neuroradiology ARZ LOS, Procedure FLA LOS, Neuroradiology FLA LOS, Procedural, Procedural NWWI LOS Left Computed Tomography, Compute d Tomography Impressions 04/05/2023 12:[address]-guided left L4-L5 Transforaminal epidural steroid injection. 2. CT-guided left L4-L5 Facet joint aspiration and injection. ?? NR Narrative 04/05/2023 12:11 PM CDT EXAM: CT LUMBAR SPINE TRANSFORAMINAL EPIDURAL INJECTION LEFT, CT FACET SYNOVIAL CYST ASPIRATION OR INJECTION LEFT PROCEDURE: ?? 1. CT guided Left L4 Transforaminal Epidural Steroid Injection 2. CT guided Left L4-5 Facet Joint Aspiration and Injection Pain Score: Pre-procedural pain was rated: 5/10 ?? Post-procedural pain was rated: 1/10 ?? Medications: For the epidural injection: Steroid: 10 mg dexamethasone Local anesthetic: ??20 mg 2% lidocaine For the facet injection: Steroid: 0.6 mg INDICATION: The patient reports the current pain syndrome to be of 6-12 months duration and presents today for a maintenance injection. TECHNIQUE: Preprocedural imaging and patient's pain pattern were reviewed. Ms. Hrarell had excellent pain relief of left lower back and left lower extremity including left inguinal region with resolution of numbness of the anterior thigh and hurtado after left L4 transforaminal epidural steroid injection and facet aspiration with steroid injection performed 09/30/22. Approximately a month and a half ago, her left lower back and inguinal pain have recured, without additional distal symptoms that she had prior to the September procedure. No updated MRI is available following 09/30/2022 procedure, however MRI 09/16/2022 demonstrated prominent left L4-L5 facet medially projecting synovial cyst with mass effect upon the thecal sac and traversing cauda equina nerve roots. Repeat left L4 transforaminal epidural steroid injection was requested and performed. Since updated MRI was not available, left L4-L5 facet/presumed recurrent synovial cyst aspiration was repeated with a tiny injection of betamethasone, similar to the prior procedure. Using usual sterile technique, CT guidance, and local anesthesia, a 4.75 inch 25-gauge spinal needle was advanced into the neural foramen using an infraneural approach. With final needle tip position, a small amount of iodinated contrast confirmed equal peripheral and central epidural flow without intrathecal uptake and with anteroposterior distribution which was ventral. Transient vascular uptake was not observed with final needle position. A test dose of preservative free lidocaine was administered. Following 2 minutes, there were no central neurologic changes. Dexamethasone was deposited in this location. The needle was cleared with lidocaine and removed. Next, using usual sterile technique, CT guidance, and local anesthetic, a 3.5 inch 22-gauge spinal needle was advanced to the posterior aspect of the facet joint. There was visual evidence and tactile sensation of entering the joint. A small amount of air confirmed intra-articular positioning including ventral and dorsal aspect of the capsule. The joint was aspirated several times, and approximately 0.3 cc of blood-tinged straw-colored synovial fluid was obtained, probably similar to the prior procedure. 0.1 cc betamethasone was administered into the joint. The needle was styletted and removed. The patient experienced no complication. PREPROCEDURE: Patient seen and evaluated. Allergies, pertinent medications, and history reviewed. Discussed risks (including, but not limited to, bleeding, infection, nerve injury, and paralysis), benefits, alternatives for procedure, and obtained informed consent. The side and site of the procedure were marked, when applicable, at the time of consent. Patient understands information and questions answered. Immediately prior to starting the procedure, in the presence of the assisting personnel, procedural pause was conducted to verify correct patient identity and verification of procedure to be performed, and as applicable, correct side and site, correct patient position, availability of implants, special equipment, or special requirements, and all image and specimen identification data. The roles and responsibilities of care team members, residents, and fellows were discussed. Joey Montenegro M.D. [facility] [place] * CT Lumbar Spine Transforaminal Epidural Injection Left (04/03/2023 12:51 PM CDT) Anatomical Region Laterality Modality Lumbar Spine, Neuroradiology RST LOS, Musculoskeletal RST LOS, Neuroradiology ARZ LOS, Procedure FLA LOS, Neuroradiology FLA LOS Left Computed Tomography, Compute d Tomography 04/03/2023 12:5 2 PM CDT Impressions 04/03/2023 1:[address]-guided left L4-L5 Transforaminal epidural steroid injection. 2. CT-guided left L4-L5 Facet joint aspiration and injection. ?? NR Narrative 04/03/2023 1:07 PM CDT EXAM: CT LUMBAR SPINE TRANSFORAMINAL EPIDURAL INJECTION LEFT, CT FACET SYNOVIAL CYST ASPIRATION OR INJECTION LEFT PROCEDURE: ?? 1. CT guided Left L4 Transforaminal Epidural Steroid Injection 2. CT guided Left L4-5 Facet Joint Aspiration and Injection Pain Score: Pre-procedural pain was rated: 5/10 ?? Post-procedural pain was rated: 1/10 ?? Medications: For the epidural injection: Steroid: 10 mg dexamethasone Local anesthetic: ??20 mg 2% lidocaine For the facet injection: Steroid: 0.6 mg INDICATION: The patient reports the current pain syndrome to be of 6-12 months duration and presents today for a maintenance injection. TECHNIQUE: Preprocedural imaging and patient's pain pattern were reviewed. Ms. Harrell had excellent pain relief of left lower back and left lower extremity including left inguinal region with resolution of numbness of the anterior thigh and hurtado after left L4 transforaminal epidural steroid injection and facet aspiration with steroid injection performed 09/30/22. Approximately a month and a half ago, her left lower back and inguinal pain have recured, without additional distal symptoms that she had prior to the September procedure. No updated MRI is available following 09/30/2022 procedure, however MRI 09/16/2022 demonstrated prominent left L4-L5 facet medially projecting synovial cyst with mass effect upon the thecal sac and traversing cauda equina nerve roots. Repeat left L4 transforaminal epidural steroid injection was requested and performed. Since updated MRI was not available, left L4-L5 facet/presumed recurrent synovial cyst aspiration was repeated with a tiny injection of betamethasone, similar to the prior procedure. Using usual sterile technique, CT guidance, and local anesthesia, a 4.75 inch 25-gauge spinal needle was advanced into the neural foramen using an infraneural approach. With final needle tip position, a small amount of iodinated contrast confirmed equal peripheral and central epidural flow without intrathecal uptake and with anteroposterior distribution which was ventral. Transient vascular uptake was not observed with final needle position. A test dose of preservative free lidocaine was administered. Following 2 minutes, there were no central neurologic changes. Dexamethasone was deposited in this location. The needle was cleared with lidocaine and removed. Next, using usual sterile technique, CT guidance, and local anesthetic, a 3.5 inch 22-gauge spinal needle was advanced to the posterior aspect of the facet joint. There was visual evidence and tactile sensation of entering the joint. A small amount of air confirmed intra-articular positioning including ventral and dorsal aspect of the capsule. The joint was aspirated several times, and approximately 0.3 cc of blood-tinged straw-colored synovial fluid was obtained, probably similar to the prior procedure. 0.1 cc betamethasone was administered into the joint. The needle was styletted and removed. The patient experienced no complication. PREPROCEDURE: Patient seen and evaluated. Allergies, pertinent medications, and history reviewed. Discussed risks (including, but not limited to, bleeding, infection, nerve injury, and paralysis), benefits, alternatives for procedure, and obtained informed consent. The side and site of the procedure were marked, when applicable, at the time of consent. Patient understands information and questions answered. Immediately prior to starting the procedure, in the presence of the assisting personnel, procedural pause was conducted to verify correct patient identity and verification of procedure to be performed, and as applicable, correct side and site, correct patient position, availability of implants, special equipment, or special requirements, and all image and specimen identification data. The roles and responsibilities of care team members, residents, and fellows were discussed. Joey VILLANUEVA CT PROCEDURES documented in this encounter Visit Diagnoses Diagnosis Spondylosis documented in this encounter Administered Medications Inactive Administered Medications - up to 3 most recent administrations Medication Order MAR Action Action Date Dose Rate Site betamethasone acetate & sodium phosphate injection (CELESTONE SOLUSPAN) As needed, Starting on 04/03/23 at 1246, Intra-Op Given 04/03/2023 12:46 PM CDT 2 mg Lower Back dexAMETHasone (PF) injection (DECADRON) As needed, Starting on Mon04/03/23 at 1237, Intra-Op Given 04/03/2023 12:37 PM CDT 10 mg Lower Back iohexoL 300 mg iodine/mL solution (OMNIPAQUE) As needed, Starting on Mon04/03/23 at 1233, Intra-Op Given 04/03/2023 12:33 PM CDT 1 mL Lower Back lidocaine (PF) 20 mg/mL (2 %) injection (XYLOCAINE) As needed, Starting on Mon04/03/23 at 1236, Intra-Op Given 04/03/2023 12:36 PM CDT 1 mL Lower Back lidocaine 10 mg/mL (1 %) injection (XYLOCAINE) As needed, Starting on Mon04/03/23 at 1231, Intra-Op Given 04/03/2023 12:31 PM CDT 5 mL Lower Back sodium chloride (PF) 0.9 % injection As needed, Starting on Mon04/03/23 at 1235, Intra-Op Given 04/03/2023 12:35 PM CDT 3 mL Lower Back documented in this encounter Active and Recently Administered Medications Times are shown in CDT. PRN Medication Order 04/01/2023 04/02/2023 04/03/2023 betamethasone acetate & sodium phosphate injection (CELESTONE SOLUSPAN) (COMPLETED) As needed, Starting on Mon04/03/23 at 1246, Intra-Op 1246 (Given - Provid er: Leticia Elizabeth M.D., M.B.A. - Comment: Left L4-5 facet) dexAMETHasone (PF) injection (DECADRON) (COMPLETED) As needed, Starting on Mon04/03/23 at 1237, Intra-Op 1237 (Given - Provid er: Leticia Elizabeth M.D., M.B.A. - Comment: Left L4-5 facet cyst asp and injection plus left L4-5 TFE x 2 sites) iohexoL 300 mg iodine/mL solution (OMNIPAQUE) (COMPLETED) As needed, Starting on Mon04/03/23 at 1233, Intra-Op 1233 (Given - Provid er: Leticia Elizabeth M.D., M.B.A. - Comment: mixed with sterile sodium chloride for CT) lidocaine (PF) 20 mg/mL (2 %) injection (XYLOCAINE) (COMPLETED) As needed, Starting on Mon04/03/23 at 1236, Intra-Op 1236 (Given - Provid er: Leticia Elizabeth M.D., M.B.A. - Comment: Left L4-5 facet cyst asp and injection plus left L4-5 TFE x 2 sites) lidocaine 10 mg/mL (1 %) injection (XYLOCAINE) (COMPLETED) As needed, Starting on Mon04/03/23 at 1231, Intra-Op 1231 (Given - Provid er: Leticia Elizabeth M.D., M.B.A. - Comment: Left L4-5 facet cyst asp and injection plus left L4-5 TFE x 2 sites) sodium chloride (PF) 0.9 % injection (COMPLETED) As needed, Starting on Mon04/03/23 at 1235, Intra-Op 1235 (Given - Provid er: Leticia Elizabeth M.D., M.B.A. - Comment: Left L4-5 facet cyst asp and injection plus left L4-5 TFE x 2 sites) documented in this encounter
--- OUTSIDE RECORDS SUMMARY | 2023-09-13 11:34 | XMS_ITS | Encounter Summary ---
Author Name Unknown Organization [facility] Address [address] [place] [address] Care Team Providers Care Legal Intern Name Role Phone Unavailable Primary Care Provider Unavailabl e Reason for Visit * Reason Onset Date Comments Follow-up 02/15/2023 [facility] is c alling to complete your 3-month follow-up PROMIS-CAT questionnaires. You will receive questionnaires at different timepoints in the future. You can complete the current questionnaires in your portal and no return call is necessary. If you have any questions, please call us at: [phone]. Thank you! Encounter Details Date Type Department Care Team (Latest Contact Info) Description 02/15/2023 Clinical Communication Department of Spine in [place], [place] [address] [place] [address] Mariah Page [address] [place] [phone] Follow-up ([facility] is calling to complete your 3-month follow-up PROMIS-CAT questionnaires. You will receive questionnaires at different timepoints in the future. You can complete the current questionnaires in your portal and no return call is necessary. If you have any questions, please call us at: [phone]. Thank you! ) Social History Tobacco Use Types Packs/Day Years [...] Family Three times a week 04/11/2019 Attends Church Services Not on file 04/11 Active Member [...] encounter Miscellaneous Notes * Telephone Encounter - Mariah Page - 02/15/2023 1:57 PM CDT [facility] is calling to complete your 3-month follow-up PROMIS-CAT questionnaires. You will receive questionnaires at different timepoints in the future. You can complete the current questionnairesin your portal and no return call is necessary. If you have any questions, please call us at: [phone]. Thank you! documented in this encounter Plan of Treatment Upcoming Encounters Date Type Department Care Team (Late st Contact Info) Description 09/26/2023 10:30 AM LINOLEUM MECHANIC Office Visit Department of Orthopedic Surgery in [address] [phone] Amanda Scott APRN, C.N.P., D.N.P. [address] [place] [phone] Discharge Disposition: Home or Self Care documented as of this encounter Visit Diagnoses Not on filedocumented in this encounter
--- OUTSIDE RECORDS SUMMARY | 2023-09-13 11:34 | XMS_ITS | Encounter Summary ---
Author Name Unknown Organization [facility] Address [address] [place] [address] Care Team Providers Care Environmental Law Professor Name Role Phone Unavailable Primary Care Provider Unavailabl e Reason for Visit * Reason Onset Date Comments Follow-up 05/15/2023 [facility] is c alling to complete your 6-month follow-up PROMIS-CAT questionnaires. You will receive questionnaires at different timepoints in the future. You can complete the current questionnaires in your portal and no return call is necessary. If you have any questions, please call us at: [phone]. Thank you! Encounter Details Date Type Department Care Team (Latest Contact Info) Description 05/15/2023 Clinical Communication Department of Spine in [place], [place] [address] [place] [address] Mariah Page [address] [place] [address] Follow-up ([facility] is calling to complete your 6-month follow-up PROMIS-CAT questionnaires. You will receive questionnaires at different timepoints in the future. You can complete the current questionnaires in your portal and no return call is necessary. If you have any questions, please call us at: [phone]. Thank you! / ) Social History Tobacco Use Types Packs/Day [...] Family Three times a week 04/11/2019 Attends [employer] Services Not on file 04/11 Active Member [...] * Telephone Encounter - Mariah Page - 05/15/2023 11:09 AM CDT [facility] is calling to complete your 6-month follow-up PROMIS-CAT questionnaires. You will receive questionnaires at different timepoints in the future. You can complete the current questionnairesin your portal and no return call is necessary. If you have any questions, please call us at: [phone]. Thank you! 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 [address] [place] [phone] Discharge Disposition: Home or Self Care documented as of this encounter Visit Diagnoses Not on filedocumented in this encounter
--- OUTSIDE RECORDS SUMMARY | 2023-09-13 11:34 | XMS_ITS | Encounter Summary ---
Author Name Unknown Organization [facility] Address [address] [place] [address] Care Team Providers Care Geological Scout Name Role Phone Unavailable Primary Care Provider Unavailabl e Encounter Details Date Type Department Care Team (Late st Contact Info) Description 06/19/2023 11:00 AM HEAD WRESTLING COACH Education Department of Orthopedic Surgery in [address] [phone] Uriel Renner M.D. [address] [place] [phone] Missy Aldrich, RJudithNJudith [address] [place] [phone] Pain Knee Right; Primary Osteoarthritis Knee Right [...] as of this encounter Progress Notes * Missy Aldrich, R.N. - 06/19/2023 11:00 AM CST Patient is scheduled for a Right Total Knee Arthroplasty on 07/05/[address] Renner. Patient attended the Total Joint Class and all material gone over and questions addressed after viewing the [facility] Total Joint video. Therapy portion was discussed. Instructions as to where to go and map provided. Phone number to call the night prior given and instructions discussed. Components discussed and demonstrated. Risks for side effects and complications discussed. Getting ready for surgery discussed as well as what to bring with to surgery, Hibiclens, showering, the use of clean sheets, towels and wash cloths discussed. Medications prior to surgery and what not to take discussed. Plan to change daily activities discussed. Integrative and healing therapy discussed. Plans for recovery discussed. No dental work for 4 weeks prior to surgery discussed. No elective dental work for six months after surgery discussed. Necessity of prophylaxis prior to dental procedures for up to oneyear after surgery unless immunocompromised in some way, then it is two years discussed. Necessity of a Caregiver after surgery discussed. Changes with work after surgery discussed. Getting home ready in preparation for surgery discussed. What to bring with to your surgery discussed. The day of surgery and what to expect discussed. Analgesia and medications pt will be sent home with discussed. Coughing, deep breathing and circulation aids discussed. Polar ice machine discussed. Traveling after surgery and prevention of blood clots discussed. Diet and foods high in fiber discussed. Managing your pain discussed. Incision care and prevention of infection discussed. Bathing status post surgery discussed. Wound vac vs bandage discussed and time length discussed. When to get emergency medical care discussed. Signs and symptoms of a possible infection discussed. Pharmacy portion viewed. Followup appt discussed. Patient was voiced understanding, and will call with any other questions or concerns. Patient was given the following education and pamphlets in their surgical packet: - Total Knee Replacement Surgery [id number] - Home Safety Tips [id number] - Bathroom Safety Equipment [id number] - Rehabilitation after Knee Replacement [id number] - Prior to Surgery Medication List [id number] - Important Information About Opioid Medication [id number] - Speak Up: Antibiotics [id number] - Acute Pain and the Healing Process [id number] - Total Joint Arthroplasty Discharge Planning [id number] - Intentional Rounding [id number] - Reducing Your Risk of Surgical Infection [id number] with Hibiclens Soap (2 Packets) - Surgical Site Infection: Reducing you Risk [id number] - Billing Question Card [id number] - [facility] Financial Clearance Business Card - Transportation Sheet Patient was given and discussed the following education & pamphlets. Patient voiced understanding and stated they will call with any other questions or concerns: - Authorization to Disclose Protected Health Information to Family and Friends [id number] - SEMN Checklist for Surgical Patients [id number] - Discharge Planning [id number] WRESTLING COACH documented in this encounter Plan of Treatment Upcoming Encounters Date Type Department Care Team (Late st Contact Info) Description 09/26/2023 10:30 AM HEAD WRESTLING COACH Office Visit Department of Orthopedic Surgery in [address] [phone] Amanda Scott APRN, C.N.P., D.N.P. [address] [place] [phone] Discharge Disposition: Home or Self Care documented as of this encounter Visit Diagnoses Diagnosis Pain Knee Right Primary Osteoarthritis Knee Right documented in this encounter
--- OUTSIDE RECORDS SUMMARY | 2023-09-13 11:34 | XMS_ITS | Encounter Summary ---
Author Name Unknown Organization [facility] Address [address] [place] [address] Care Team Providers Care Quality Control Lead Name Role Phone Unavailable Primary Care Provider Unavailabl e Reason for Referral * MRI/CAT/PET Scan (Routine) - Closed Specialty Diagnoses / Procedures Referred By Contac t Referred To Contact Radiology Diagnoses Spondylosis Procedures CT Facet Synovial Cyst Aspiration or Puncture or Injection Left CT Facet Synovial Cyst Aspiration or Puncture or Injection Bilateral Joey Montenegro M.D. [address] [place] [phone] [facility] Referral ID Status Reason Start Date Expiration Date Visits Re quested Visits Authorized [id number] Closed 02/22/2023 02/22/2024 1 1 * MRI/CAT/PET Scan (Routine) - Closed Specialty Diagnoses / Procedures Referred By Contac t Referred To Contact Radiology Diagnoses Spondylosis Procedures CT Lumbar Spine Transforaminal Epidural Injection Left Joey Montenegro M.D. [address] [place] [phone] [facility] Referral ID Status Reason Start Date Expiration Date Visits Re quested Visits Authorized [id number] Closed 02/22/2023 02/22/2024 1 1 * Outpatient (Routine) - Closed Specialty Diagnoses / Procedures Referred By Carley shields Referred To Contact Orthopedic Surgery Joey Montenegro M.D. [address] [place] [phone] [facility] Referral ID Status Reason Start Date Expiration Date Visits Re quested Visits Authorized [id number] Closed 02/22/2023 02/21/2026 1 1 Encounter Details Date Type Department Care Team (Late st Contact Info) Description 02/22/2023 Clinical Communication Department of Orthopedic Surgery in [place], [place] [address] [place] [phone] Joey Montenegro M.D. [address] [place] [phone] Social History Tobacco Use Types Packs/Day Years [...] encounter Miscellaneous Notes * Telephone Encounter - Lazaro Betancourt M.D. - 03/16/2023 8:24 PM CDT Miscellaneous Note I spoke with Heather Harrell on the phone today about her synovial cyst and back pain. She states that the pain in her back has returned following her synovial cyst aspiration and steroid injection in September. She states that she wanted to consider surgical management and asked for a call back. I spoke with her at length. We discussed that she did seem to have symptomatic relief for 6 months after her procedure in September. We also discussed the surgical option and what that would entail. I also ensured that she did not have any red flag symptoms including saddle anesthesia, new onset numbness or tingling, new onset bowel or bladder incontinence, or new onset weakness unrelated to pain. I advised her that should any new symptoms arise she should present to the emergency department for further workup. The patient decided that she would keep her appointment for repeat aspiration and steroid injectionfor April 03. She would also continue to consider surgical management. I told her she should feel free to call us anytime she is any questions or would like to schedule surgery. All questions were answered on the phone today. The patient thanked me for the call. * Telephone Encounter - Ayanna Urbina R.N. - 03/08/2023 4:44 PM CDT SUBJECTIVE CHIEF COMPLAINT / REASON FOR CALL No chief complaint on file. Information Discussed I returned a call to the patient to follow up on a message that we had received. She had stated shewanted to do surgery to get rid of that cyst. However after speaking with her she does have some things coming up in April that she would really like to do before considering surgery. So she has already been set up for aspiration and steroid injection in the lumbar spine at that time she will also be seeing [address] Montenegro's team members Ms. Tena Petersen APRN. This is a reasonable plan and she knows that when and if she is ready to do surgery in the future this would be a posteriorlumbar decompression at L4-5. This would be done as an outpatient procedure. She will call when or if she would like to have surgery. PLAN Disposition/Recommendation: recommended continue engagement in self-management activities Information/Education: patient/caller able to teach back Caller agreeable to plan of care: yes The following references were used: nursing clinical judgement and provider Dr. Montenegro documented in this encounter Plan of Treatment Upcoming Encounters Date Type Department Care Team (Late st Contact Info) Description 09/26/2023 10:30 AM BUS MONITOR Office Visit Department of Orthopedic Surgery in [address] [phone] Amanda Scott APRN, C.N.P., D.N.P. [address] [place] [phone] Discharge Disposition: Home or Self Care Scheduled Referrals Name Type Priority Associated Diagnoses Order Schedule Orthopedic Surgery office visit (clinic) Outpatient Referral Routine Expected: 02/22/2023 (Approximate), Expires: 05/25/2024 documented as of this encounter Results * CT Facet Synovial [...] fellows were discussed. Joey VILLANUEVA CT PROCEDURES * CT Lumbar Spine Transforaminal [...] documented in this encounter Visit Diagnoses Diagnosis Spondylosis- Primary Spondylosis documented in this encounter
--- OUTSIDE RECORDS SUMMARY | 2023-09-13 11:34 | XMS_ITS | Encounter Summary ---
Author Name Unknown Organization [facility] Address [address] [place] [address] Care Team Providers Care Horse Breeder Name Role Phone Unavailable Primary Care Provider Unavailabl e Reason for Referral * Outpatient (Routine) - Authorized Specialty Diagnoses / Procedures Referred By Contac t Referred To Contact Diagnoses Pain Knee Right Primary Osteoarthritis Knee Right Uriel Renner M.D. [address] [place] [address] Referral ID Status Reason Start Date Expiration Date V isits Requested Visits Authorized [id number] Authorized 05/24/2023 05/23/2024 1 1 * MRI/CAT/PET Scan (Routine) - Pending Review Specialty Diagnoses / Procedures Referred By Contac t Referred To Contact Radiology Diagnoses Pain Knee Right Primary Osteoarthritis Knee Right Procedures CT Knee Right without IV Contrast Uriel Renner M.D. [address] [place] [address] [facility] Region Referral ID Status Reason Start Date Expiration Date V isits Requested Visits Authorized [id number] Pending Review 05/23/2023 05/22/2024 1 1 * Specialty Diagnoses / Procedures Referred By Contac t Referred To Contact Uriel Renner M.D. [address] [place] [address] [facility] Region Referral ID Status Reason Start Date Expiration Date Visits Re quested Visits Authorized * Outpatient (Routine) - Closed Specialty Diagnoses / Procedures Referred By Contac t Referred To Contact Orthopedic Surgery Uriel Renner M.D. [address] [place] [address] [facility] Region Referral ID Status Reason Start Date Expiration Date Visits Re quested Visits Authorized [id number] Closed 05/23/2023 05/22/2026 1 1 * Outpatient (Routine) - Closed Specialty Diagnoses / Procedures Referred By Contac t Referred To Contact Anesthesiology Diagnoses Pain Knee Right Primary Osteoarthritis Knee Right Uriel Renner M.D. [address] [place] [address] [facility] Region Referral ID Status Reason Start Date Expiration Date Visits Re quested Visits Authorized [id number] Closed 05/23/2023 05/22/2024 1 1 Reason for Visit * Reason Comments Pain * Appointment Request (Routine) - Closed Specialty Diagnoses / Procedures Referred By Contac t Referred To Contact Orthopedic Surgery Referral ID Status Reason Start Date Expiration Date Visits Re quested Visits Authorized [id number] Closed 04/19/2023 04/18/2024 1 1 Encounter Details Date Type Department Care Team (Latest Contact Info) Description 05/23/2023 2:45 PM CDT Office Visit Department of Orthopedic Surgery in [address] [phone] Uriel Renner M.D. [address] [place] [phone] Pain Knee Right (Primary Dx); Primary Osteoarthritis Knee Right Discharge Disposition: Home [...] Consult Notes * Uriel Renner M.D. - 05/23/2023 2:45 PM CDT HISTORY OF PRESENT ILLNESS Heather is a 77-year-old woman who is here in regard to her right knee. She is noted to have significant right knee osteoarthritis. She is here to discuss continuing treatment options for this. She isstatus post a previous left total knee arthroplasty. OBJECTIVE PHYSICAL EXAMINATION Musculoskeletal: On examination of her right knee, her knee range of motion is from 0 to about 110 degrees. She is able to varus and valgus stress but does have pseudolaxity with valgus stress. She has significant tenderness along the medial joint line. The lateral joint line is not particularly tender. DIAGNOSTICS X-rays of her right knee previously obtained demonstrate severe degenerative changes, especially tothe medial compartment. ASSESSMENT / PLAN Heather is a 77-year-old woman dealing with significant right knee osteoarthritis. I discussed the treatment options, and we plan to proceed with a right robotically assisted, CT-guided total knee arthroplasty. She understands the risks, benefits, and alternatives to this procedure and desires to proceed. documented in this encounter Plan of Treatment Upcoming Encounters Date Type Department Care Team (Late st Contact Info) Description 09/26/2023 10:30 AM PROFESSOR OF SOCIAL WORK Office Visit Department of Orthopedic Surgery in [address] [phone] Amanda Scott APRN, C.N.P., D.N.P. [address] [place] [phone] Discharge Disposition: Home or Self Care Scheduled Referrals Name Type Priority Associated Diagnoses Orde r Schedule Pre Operative Evaluation AMAYA nurse consult (clinic) Outpatient Referral Routine Pain Knee Right Primary Osteoarthritis Knee Right 1 Occurrences starting 05/23/2023 until 08/23/2024 Orthopedic Surgery Post Op (clinic) Outpatient Referral Routine Expected: 07/21/2023, Expires: 08/31/2023 Orthopedic Surgery - Group education visit (clinic) Outpatient Referral Routine Pain Knee Right Primary Osteoarthritis Knee Right Expected: 05/23/2023 (Approximate), Expires: 08/23/2024 documented as of this encounter Results * CT Knee Right without IV Contrast (06/19/2023 10:25 AM PROFESSOR OF SOCIAL WORK) Anatomical Region Laterality Modality Lower Extremity, Knee, Muscu loskeletal RST LOS, Musculoskeletal ARZ LOS, Muskuloskeletal FLA LOS Right Compu jonathan Tomography 06/19/2023 11:2 2 AM PROFESSOR OF SOCIAL WORK Impressions 06/19/2023 11:28 AM PROFESSOR OF SOCIAL WORK Advanced knee degenerative arthritis. Narrative 06/19/2023 11:28 AM PROFESSOR OF SOCIAL WORK EXAM: ??CT KNEE RIGHT WITHOUT IV CONTRAST [...] Advanced knee degenerative arthritis. Uriel Renner M.D. G CT PROCEDURES documented in this encounter Visit Diagnoses Diagnosis Pain Knee Right- Primary Primary Osteoarthritis Knee Right Pain Knee Right Primary Osteoarthritis Knee Right documented in this encounter
--- OUTSIDE RECORDS SUMMARY | 2023-09-13 11:34 | XMS_ITS | Encounter Summary ---
Author Name Unknown Organization [facility] Address [address] [place] [address] Care Team Providers Care Bench Patternmaker Metal Name Role Phone Unavailable Primary Care Provider Unavailabl e Reason for Visit * Reason Onset Date Comments Pre-visit Intake 03/31/2023 Encounter Details Date Type Department Care Team (Latest Contact Info) Description 03/31/2023 1:15 PM CDT Clinical Communication Virtual Review in [place], [place] [address] [place] [address] Pre-visit Intake Social History Tobacco Use Types Packs/Day Years [...] st Contact Info) Description 09/26/2023 10:30 AM BILLING REP Office Visit Department of Orthopedic Surgery in [address] [phone] Amanda Scott APRN, C.N.P., D.N.P. [address] [place] [phone] Discharge Disposition: Home or Self Care documented as of this encounter Visit Diagnoses Not on filedocumented in this encounter
--- OUTSIDE RECORDS SUMMARY | 2023-09-13 11:34 | XMS_ITS | Encounter Summary ---
Author Name Unknown Organization [facility] Address [address] [place] [address] Care Team Providers Care Edge Finisher Name Role Phone Unavailable Primary Care Provider Unavailabl e Reason for Referral * MRI/CAT/PET Scan (Routine) - Pending Review Specialty Diagnoses / Procedures Referred By Contac t Referred To Contact Radiology Diagnoses Pain Knee Right Primary Osteoarthritis Knee Right Procedures CT Knee Right without IV Contrast Uriel Renner M.D. [address] [place] [phone] [facility] Region Referral ID Status Reason Start Date Expiration Date V isits Requested Visits Authorized [id number] Pending Review 05/23/2023 05/22/2024 1 1 ESS/WELLNESS DIRECTOR Reason for Visit * MRI/CAT/PET Scan (Routine) - Pending Review Specialty Diagnoses / Procedures Referred By Contac t Referred To Contact Radiology Diagnoses Pain Knee Right Primary Osteoarthritis Knee Right Procedures CT Knee Right without IV Contrast Uriel Renner M.D. [address] [place] [address] [facility] Region Referral ID Status Reason Start Date Expiration Date V isits Requested Visits Authorized [id number] Pending Review 05/23/2023 05/22/2024 1 1 Encounter Details Date Type Department Care Team (Latest Contact Info) Description 06/19/2023 10:03 AM FITNESS/WELLNESS DIRECTOR - 06/19/2023 11:59 PM FITNESS/WELLNESS DIRECTOR Hospital Encounter Department of Radiology in [address] [place] [phone] Uriel Renner M.D. [address] [place] [phone] Pain Knee Right; Primary Osteoarthritis Knee Right [...] Family Three times a week 04/11/2019 Attends Orthodox Services Not on file 04/11 Active [...] 07/06/2023 oxyCODONE (ROXICODONE) 5 mg immediate release tabletIndications:Pro longed Acute Pain/Traumatic Injury Take 1-2 tablets (5-10 mg total) by mouth every 4 (four) hours as needed for pain Indication: Prolonged Acute Pain/Traumatic Injury. 50 tablet 0 07/06/2023 rosuvastatin (CRESTOR) 5 mg tablet Take 5 mg by mouth at bedtime. 3 06/04/2019 sennosides-docusate sodium (SENOKOT-S) 8.6-50 mg per tablet Take 1 tablet by mouth 2 (two) times a day. 60 tablet 0 07/05/2023 acetaminophen (TYLENOL) 500 mg tablet Take 1 tablet (500 mg total) by mouth every 6 (six) hours as needed for mild pain or score 1-3 of 10. 0 06/19/2019 07/05/2023 aspirin 81 mg chewable tablet Chew 81 mg daily. 0 10/07/2011 023 calcium carbonate (TUMS) 500 mg (200 mg calcium) chewable tablet Chew 1 tablet 3 (three) times a day as needed for indigestion or heartburn. 0 07/05/2023 cholecalciferol (Vitamin D3) 50 mcg (2,000 Unit) tablet Take 50 mcg by mouth daily. 0 07/05/2023 cinnamon bark 500 mg capsule Take 1,000 mg by mouth daily. 0 07/05/2023 cranberry 500 mg capsule Take 500 mg by mouth daily. 0 07/05/2023 cyanocobalamin (vitamin [...] (two) times a day. 0 01/24/2021 07/05/2023 oxyCODONE (ROXICODONE) 5 mg immediate release tabletIndications:Pro longed Acute Pain/Traumatic Injury Take 1-2 tablets (5-10 mg total) by mouth every 4 (four) hours as needed for pain Indication: Prolonged Acute Pain/Traumatic Injury. 50 tablet 0 07/05/2023 07/06/2023 TURMERIC ORAL Take 500 mg by mouth daily. 0 07/05/2023 documented as of this encounter Plan of Treatment Upcoming Encounters Date Type Department Care Team (Late st Contact Info) Description 09/26/2023 10:30 AM FITNESS/WELLNESS DIRECTOR Office Visit Department of Orthopedic Surgery in [address] [phone] Amanda Scott APRN, C.N.P., D.N.P. [address] [place] [phone] Discharge Disposition: Home or Self Care documented as of this encounter Procedures Procedure Name Priority Date/Time Associated Diagnosis Comments CT KNEE RIGHT WITHOUT IV CONTRAST RAD - Routine (most inpatients and all outpatients) 06/19/2023 10:25 AM FITNESS/WELLNESS DIRECTOR Pain Knee Right Primary Osteoarthritis Knee Right documented in this encounter Results * CT Knee Right without IV Contrast (06/19/2023 10:25 AM FITNESS/WELLNESS DIRECTOR) Anatomical Region Laterality Modality Lower Extremity, Knee, Muscu loskeletal RST LOS, Musculoskeletal ARZ LOS, Muskuloskeletal FLA LOS Right Compu jonathan Tomography 06/19/2023 11:2 2 AM FITNESS/WELLNESS DIRECTOR Impressions 06/19/2023 11:28 AM FITNESS/WELLNESS DIRECTOR Advanced knee degenerative arthritis. Narrative 06/19/2023 11:28 AM FITNESS/WELLNESS DIRECTOR EXAM: ??CT KNEE RIGHT WITHOUT IV CONTRAST [...] arthritis. Uriel Renner M.D. IMG CT PROCEDURES documented in this encounter Visit Diagnoses Diagnosis Pain Knee Right Primary Osteoarthritis Knee Right documented in this encounter
--- OUTSIDE RECORDS SUMMARY | 2023-09-13 11:34 | XMS_ITS | Encounter Summary ---
Author Name Unknown Organization [facility] Address [address] [place] [address] Care Team Providers Care Court Security Officer Name Role Phone Unavailable Primary Care Provider Unavailabl e Reason for Visit * Reason Onset Date Comments Surgical Listing 05/23/2023 Ortho Encounter Details Date Type Department Care Team (Latest Contact Info) Description 05/23/2023 Clinical Communication Department of Orthopedic Surgery in [place], [place] [address] [place] [phone] Uriel Renner M.D. [address] [place] [phone] Surgical Listing (Ortho ) Social History Tobacco Use Types Packs/Day [...] Family Three times a week 04/11/2019 Attends Buddhist Services Not on file 04/11 Active Member [...] encounter Miscellaneous Notes * Telephone Encounter - Jen Valencia L.P.N. - 05/23/2023 3:36 PM CDT Scheduled right TKA YAQUELIN on 07/05/23 to be performed by Dr Renner. Hospital stay. BMI Readings from Last 1 Encounters: 09/30/22 23.17 kg/m?? If BMI 55-60, contact Anesthesia as needs to schedule visit for evaluation. If BMI greater than 60,consult with provider. documented in this encounter Plan of Treatment Upcoming Encounters Date Type Department Care Team (Late st Contact Info) Description 09/26/2023 10:30 AM EDI PROGRAMMER Office Visit Department of Orthopedic Surgery in [address] [phone] Amanda Scott APRN, C.N.P., D.N.P. [address] [place] [phone] Discharge Disposition: Home or Self Care documented as of this encounter Visit Diagnoses Not on filedocumented in this encounter
--- OUTSIDE RECORDS SUMMARY | 2023-09-13 11:34 | XMS_ITS | Encounter Summary ---
Author Name Unknown Organization [facility] Address [address] [place] [address] Care Team Providers Care Radio Television Technical Director Name Role Phone Unavailable Primary Care Provider Unavailabl e Encounter Details Date Type Department Care Team (Late st Contact Info) Description 04/05/2023 Clinical Communication Department of Orthopedic Surgery in [place], [place] [address] [place] [phone] Joey Montenegro M.D. [address] [place] [phone] Social History Tobacco Use Types Packs/Day Years [...] Family Three times a week 04/11/2019 Attends [employer] Services Not on file 04/11 Active Member [...] as of this encounter Progress Notes * oJey Montenegro M.D. - 04/05/2023 12:34 PM CDT The patient had an image guided injection and aspiration of the cyst in the spine at L4-5 level. There preprocedure pain was a 5 and postprocedure was a 1 on a 10 point scale. Hopefully this providessome durable long-lasting relief. If this recurs again then she would be a candidate for a surgicaldecompression of the spine at that level without fusion or instrumentation. This procedure could be performed in [facility]. It would require a preoperative clearance by anesthesia or her primary care provider. The surgery would be performed under a general anesthetic and I would anticipate a day or 2 hospital stay with a discharge to home. Patient would be in medical need a physical therapy in the hospital for gait training, balance issues and transitioning to home. The main risks of the surgery would be the risk wound healing delay or infection. 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 Her situation is consistent with this. If she did have a dural leak noted in try operatively after removal of the cyst, it would be repaired primarily at that time and she would progress to a normal anticipated recovery trajectory. If she did wish to pursue surgery in the future, I would like to see her again [id number] to update her history and physical exam as well as discuss the surgical treatment in more detail. documented in this encounter Plan of Treatment Upcoming Encounters Date Type Department Care Team (Late st Contact Info) Description 09/26/2023 10:30 AM FACILITY SECURITY OFFICER Office Visit Department of Orthopedic Surgery in [address] [phone] Amanda Scott APRN, C.N.P., D.N.P. [address] [place] [phone] Discharge Disposition: Home or Self Care documented as of this encounter Visit Diagnoses Not on filedocumented in this encounter
--- OUTSIDE RECORDS SUMMARY | 2023-09-13 11:34 | XMS_ITS | Encounter Summary ---
Author Name Unknown Organization [facility] Address [address] [place] [id number] Care Team Providers Care Coding Coordinator Name Role Phone Unavailable Primary Care Provider Unavailabl e Reason for Visit * Outpatient (Routine) - Closed Specialty Diagnoses / Procedures Referred By Carley shields Referred To Contact Anesthesiology Diagnoses Pain Knee Right Primary Osteoarthritis Knee Right Uriel Renner M.D. [address] [place] [phone] [facility] Referral ID Status Reason Start Date Expiration Date Visits Re quested Visits Authorized [id number] Closed 05/23/2023 05/22/2024 1 1 Encounter Details Date Type Department Care Team (Latest Contact Info) Description 06/26/2023 2:15 PM CABLE TV INSTALLER Virtual Visit Preoperative Evaluation Center in [place], [place] [address] [place] [phone] Uriel Renner M.D. [address] [place] [phone] Candice Sullivan R.N. [address] [place] [phone] Preanesthetic Medical Exam (Primary Dx); Pain Knee [...] Family Three times a week 04/11/2019 Attends Muslim Services Not on file 04/11 Active Member [...] as of this encounter Progress Notes * Candice Sullivan R.N. - 06/26/2023 2:15 PM CST AMAYA Nurse visit completed. Surgery Nurse Roll Skinner Skin Alert Assessment: Complete this section only if the patient is greater than or equal to 18 y/o BMI <19 or >50: No Documented risk factors that indicate higher risk for pressure ulcer? No Do you have impaired sensation? No Is patient chair-bound or unable to reposition themselves? No Anesthesia Risk Assessment: Do you have an implanted cardiac device? No Do you have difficulties lying flat? No Comment: Do you have any confucianism or other objection to having a blood transfusion? No Teaching: Preoperative education was done with (x) patient. It was confirmed the patient/family member had received the following preoperative education sheets: Checklist For Surgical Patients ([id number]),???Surgical Site Infections: Reducing Your Risk ([id number]), Speak Up: Antibiotics ([id number]), Acute Pain and the Healing Process ( [id number]) with the [facility] ([id number]), and ???Appointments RequiredBefore Your Surgery?? (no MC). These were reviewed in detail. (x) Preoperative medication education provided through [facility] Expert Total Joint Class scheduled: () N/A Date:06/19/23 (x)Total Joint Surgery: Total Joint Class (good for one year). (x) Reviewed Hibiclens packet and reviewed Reducing Your Risk of Surgical Infection ([id number]). CT preop for YAQUELIN Robotic Assist? Yes Date (06/19/23) Additional Pamphlets also reviewed: Patient is ready to learn, no apparent learning barriers were identified. Reviewed diagnosis and treatment plan; patient verbalized understanding through teach back. All questions were answered. Patient has contact information and understands the need to call with any questions or concerns. Post op appointments: 1st po with surgeon or physician employee relations assistant: (x) made E TV INSTALLER documented in this encounter Plan of Treatment Upcoming Encounters Date Type Department Care Team (Late st Contact Info) Description 09/26/2023 10:30 AM CABLE TV INSTALLER Office Visit Department of Orthopedic Surgery in [address] [phone] Amanda Scott APRN, C.N.P., D.N.P. [address] [place] [phone] Discharge Disposition: Home or Self Care documented as of this encounter Visit Diagnoses Diagnosis Preanesthetic Medical Exam- Primary Pain Knee Right Primary Osteoarthritis Knee Right documented in this encounter
--- OUTSIDE RECORDS SUMMARY | 2023-09-13 11:34 | XMS_ITS | Encounter Summary ---
Author Name Unknown Organization [facility] Address [address] [place] [address] Care Team Providers Care Associate Professor Plant Pathology Name Role Phone None Reported, Pcp Primary Care Provider Unavail able Encounter Details Date Type Department Care Team (Late st Contact Info) Description 07/05/2023 7:35 AM BISQUE KILN DRAWER - 07/05/2023 10:05 AM BISQUE KILN DRAWER Surgery [facility] in [place], [place] [address] [place] [phone] Uriel Renner M.D. [address] [place] [phone] ROBOTIC-ASSISTED KNEE TOTAL ARTHROPLASTY Social History Tobacco Use Types Packs/Day Years [...] Family Three times a week 04/11/2019 Attends [employer] Not on file 04/11 Active Member [...] Sign Reading Time Taken Comments Blood Pressure 106/60 07/05/2023 10:05 AM BISQUE KILN DRAWER Pulse 58 07/05/2023 10:05 AM BISQUE KILN DRAWER Temperature 35.8 ??C (96.4 ??F) 07/05/2023 9:55 AM CS T Respiratory Rate 10 07/05/2023 10:0 5 AM BISQUE KILN DRAWER Oxygen Saturation 100% 07/05/2023 10: 05 AM BISQUE KILN DRAWER Inhaled Oxygen Concentration - - Weight 63.5 kg (139 lb 15.9 oz) 07/05/2023 6:35 AM BISQUE KILN DRAWER Height - - Body Mass Index 23.55 07/05/2023 10:58 AM BISQUE KILN DRAWER documented in this encounter Discharge Summaries * Marsha Andrade P.A.-C. - 07/06/2023 1:55 PM CST Name: Heather Harrell Birthdate: 1945 [facility] Admission Date: 07/05/2023 Discharge Date: 07/06/23 PHYSICIAN???s DISCHARGE / TRANSFER ORDERS DISCHARGE TO: Home MEDICATIONS: For discharge medications please see: Patient Discharge Medication Reconciliation on Epic ADMITTING DIAGNOSIS: Primary Osteoarthritis Knee Right [M17.11] [...] Course information above. PROCEDURE(S) PERFORMED: Robotic-assisted RTKA UE KILN DRAWER documented in this encounter Medications at Time [...] orders with the Hospitalist earlier per Ortho LINEN ROOM ATTENDANT. * Cryo-cuff/ice to go home with patient. [...] requesting her pain medications be changed from [facility] as prescribed early by Dr. Renner team/Hospitalist to [facility]. I will resend those prescriptions on her behalf. I did also call all [facility] and none were open today. Ciaran Andrade PA-C UE KILN DRAWER * Magy Ritter P.T. - 07/06/2023 8:58 [...] Knee Pain Interventions: Therapy/Exercise Measures - Tools -[facility] Basic Mobility (V.2) How much help from [...] 3-5 steps with a railing?: A Little -[facility] Basic Mobility (V.2) Raw Score: 23 -[facility] Basic Mobility (V.2) Standardized Score: 50.88 -[facility] 6 Clicks Interpretation: Clinicians answer the -[facility] Inpatient Short Form based on observed patient activity and/or clinical judgement (ie. Patient can be scored without physically performing each activity). According to raw scoring guidelines: Those going to home had an average score of 20.1 Those going home with home care had an average score of 17.9 Those going to halfway facility had an average score of 14 Those going to inpatient rehab facility had an average score of 13.6 Those going to a call or contact centre manager care facility had an average score of [...] Gait belt # of Assistants: 1 (nurseVickie there for safety) Level of Assistance: Contact guard [...] needs including call preston/light in reach, Fauzia Mcdermott OT present . Assessment Discharge Considerations: Barriers to Discharge Home: None Discharge Therapy Needs - PT: Ongoing skilled physical therapy (OP PT set up in [place], [place]) Level of Care Needed - PT: [...] home with outpatient therapy set up in [place], [place] to address remaining impairments of range of motion, strength, and pain and mobility deficits of transfers and gait PT Plan Comments: DC from PT this date, will DC home with spouse and has OP PT set up in [place], [place] Treatment/Interventions: Therapeutic exercise, Gait training, Therapeutic functional activity Time Spent with Patient Therapeutic Interventions Gait Training (min): 10 min Therapeutic Activity (min): 8 min Therapeutic Exercise (min): 5 min Time Tracking Total Timed Units (min): 23 min Total Treatment Time (min): 23 min UE KILN DRAWER * Joey Davis P.T. - 07/05/2023 2:23 [...] REVERSE SHOULDER; Surgeon: Uriel Renner M.D.; Location: [facility] CACF OR COLONOSCOPY 2017 ELBOW FRACTURE SURGERY ESOPHAGOGASTRODUODENOSCOPY 2017 Erosive gastropathy EYE SURGERY Repair of Retinal defect by laser photocoagulation EYE SURGERY Cataract removal HYSTERECTOMY 1984 JOINT REPLACEMENT left knee arthroplasty PARTIAL HYSTERECTOMY ROTATOR CUFF REPAIR Right ROTATOR CUFF REPAIR Left TOE SURGERY Right Prior Function/Occupational Profile: Prior Mobility/Functional Transfers Level of [place]: Independent Prior Function/Occupational Profile Lives With: Spouse [...] home with with outpatient physical therapy in [place] Activity Orders (From admission, onward) None Precautions [...] min Total Treatment Time (min): 25 min UE KILN DRAWER * Jose Roy Pharm.D., R.Ph. - 07/05/2023 [...] Overview Added automatically from request for surgery [id number] 4. Pain Chest Musculoskeletal 5. Primary Osteoarthritis Shoulder Right Overview Added automatically from request for surgery [id number] 6. Primary Osteoarthritis Knee Left 7. * [...] (0.01%) vaginal cream Therapy completed Hospitalist/Provider reviewed PASTE MIXING SUPERVISOR medications: NO, will notify consulted hospitalist service [...] Max:36.3 ??C Weight change: I/O 07/03 0707/04 0707/04 0707/05 0707/05 0707/06 07 P.O. 100 Maintenance IV 1000 Total Intake(mL/kg) 1100 (17.1) Urine (mL/kg/hr) 250 (0.6) Blood 100 Total Output 350 Net +750 Height: 165.1 cm Admission Weight: 63.5 kg Weight: 64.4 kg Weight change since admission: 0.9 kg BMI (Calculated): 23.6 kg/m?? [place] Body Weight (Calculated) : 56.9 kg % [place] Body Weight: 113 % IBW Adjusted Body [...] Linked Orders Report. Patient's preferred pharmacy is: [facility] [address] [address] [id number] [place], [place] - [address] [facility] [address] [facility] [address] [facility] [id number] [place], [place] - [address] [address] [address] [address] [facility] [address] ASSESSMENT / PLAN Surgery Information This Encounter Past and Present Procedures (07/05/2022 to Today) Date Procedures Providers Loc / Dept 07/05/2023 ROBOTIC-ASSISTED KNEE TOTAL ARTHROPLASTY Uriel Renner M.D.Reber, Darcy, APRN, C.N.P., D.N.P. [facility] OR Post-Op cares following the above [...] meds: continue scheduled and PRN as ordered PASTE MIXING SUPERVISOR medications: consulted hospitalist service will review and order Changes to medications anticipated at discharge: TBD Jose Roy Pharm.D., R.Ph. The recommendations contained in this note are based on information available at the time of documentation and may not reflect changes in the care plan discussed after the time of signing. UE KILN DRAWER * Jose Roy Pharm.D., R.Ph. - 07/05/2023 2:01 PM CST Images from the original note were not included. Admission Medication History Note Adherence issues: No concerns Prior to Admission Medications Med List Status: Pharmacy/RN Complete Set By: Jose Roy Pharm.D., R.Ph. at 07/05/2023 2:01PM Status Comment 07/05/2023 2:01 PM Medication dispense history and [facility] PASTE MIXING SUPERVISOR medication list reviewed face to face with patient this afternoon. 07/05/23 2:01 PM BISQUE KILN DRAWER Taking? Last Dose Informant Start Date End [...] cream Therapy completed Jose Roy Pharm.D., R.Ph. UE KILN DRAWER documented in this encounter Consult Notes * Fauzia Medley O.T. - 07/06/2023 9:24 AM CST Consults Occupational [...] REVERSE SHOULDER; Surgeon: Uriel Renner M.D.; Location: [facility] CACF OR COLONOSCOPY 2017 ELBOW FRACTURE SURGERY ESOPHAGOGASTRODUODENOSCOPY 2017 Erosive gastropathy EYE SURGERY Repair of Retinal defect by laser photocoagulation EYE SURGERY Cataract removal HYSTERECTOMY 1984 JOINT REPLACEMENT left knee arthroplasty PARTIAL HYSTERECTOMY ROTATOR CUFF REPAIR Right ROTATOR CUFF REPAIR Left TOE SURGERY Right History of Present Illness: Planned R TKA Prior Function/Occupational Profile: Prior Mobility/Functional Transfers Level of [place]: Independent Prior Function/Occupational Profile Dominant Hand: Right [...] home with with outpatient physical therapy in [place] Additional Staff Present During Session: N/A Activity [...] Harrell had a standardized score of 57.54. [facility]'s 3-year data, as reported at [facility] 2017, indicates a cut off of 39.4 or greater in daily activity is a fair to good accurate prediction of discharge home. Source: AM-PAC ???6 -Clicks?? functional assessment scores predict acute care hospital discharge destination. Technology Consultant. 2014 Apr; 94 (9): 1252-61. Cognition Cognitive assessment method: Therapist observations Arousal/Alertness: Appropriate responses to stimuli Attention: Addressed, no concerns noted Orientation: Oriented X4 Strength - Upper Extremity Screen: Addressed, no concerns noted ROM - Upper Extremity Screen: Addressed, no concerns noted Feeding Feeding Location: Chair Feeding Level of Assistance: Independent UE Dressing UE Dressing Delivery: Instructed, Assessed UE Dressing Items Included: floor coverings salesperson shirt UE Dressing Level of Assistance: Independent [...] min Total Treatment Time (min): 23 min UE KILN DRAWER * Esperanza Paulson M.D. - 07/05/2023 1:03 PM CSTAssociated Order(s): IP CONSULT TO [facility] Orthopedic Surgery Consult Note [...] available for questions or concerns if needed. UE KILN DRAWER documented in this encounter Nursing Notes * [...] the medications for the patient from the [facility] meds, medication dispenser down in the ER. [...] her prescriptions to be sent to the [facility] in [place] as they do not live in [place] and do not want to drive back [...] discharge needs identified Outcome: Adequate for Discharge UE KILN DRAWER * Lenore Marquez R.N. - 07/06/2023 5:28 [...] help her go back to sleep. VSS. UE KILN DRAWER * Dianne Barron R.N. - 07/05/2023 5:44 [...] PT. Tolerated fairly well. Cold therapy on. UE KILN DRAWER documented in this encounter OR Notes * Op Note - Uriel Renner M.D. - 07/05/2023 8:23 AM CST Pre-op Diagnosis Primary Osteoarthritis Knee Right Post-op Diagnosis Primary Osteoarthritis Knee Right A orthotics prosthetics assistant actively participated and was necessary for [...] closed using #1 Vicryl in an interrupted jbogve-te-nxoxw fashion followed by copious irrigation. Subcutaneous tissues were then closed using 2-0 Vicryl. The skin was then closed using a ZipLine device followed by an Aquacel Ag dressing and IRVIN bandage. Patient was then awakened and transferred to the recovery room in good condition. Needle and sponge counts were correct. Uriel Renner M.D. UE KILN DRAWER documented in this encounter ED Notes * Bertha Bear M.D. - 07/06/2023 1:18 PM CST I was contacted by the Orthopedics nursing staff regarding a prescription for pain medicine. Today's Thanksgiving in all outpatient pharmacies are closed. The patient had orthopedic surgery today andwas prescribed oxycodone 5 mg 1-2 tablets every 4-6 hours as needed for pain. With pharmacy closuresandrae is unable to obtain this medication to assist her with her postoperative pain overnight. We do have an insty meds medication dispenser machine in the emergency department. [...] 23.55 kg/m?? Bertha Bear M.D. 07/06/23 1321 UE KILN DRAWER documented in this encounter Plan of Treatment Upcoming Encounters Date Type Department Care Team (Late st Contact Info) Description 09/26/2023 10:30 AM BISQUE KILN DRAWER Office Visit Department of Orthopedic Surgery in [address] [phone] Amanda Scott APRN, C.N.P., D.N.P. [address] [place] [phone] Discharge Disposition: Home or Self Care Scheduled Referrals Name Type Priority Associated Diagnoses Order Schedule Orthopedic Surgery Post Op (clinic) Outpatient Referral Routine 1 Occurrenc es starting 07/05/2023 until 07/05/2026 documented as of this encounter Procedures Procedure Name Priority Date/Time Associated Diagnosis Comments GLUCOSE POCT, B Routine 07/06/2023 1:06 PM BISQUE KILN DRAWER GLUCOSE POCT, B Routine 07/06/2023 8:02 AM BISQUE KILN DRAWER HEMOGLOBIN, B Routine 07/06/2023 5:52 AM BISQUE KILN DRAWER HEMOGLOBIN A1C, B Routine 07/06/2023 5:5 2 AM BISQUE KILN DRAWER GLUCOSE POCT, B Routine 07/05/2023 9:34 PM BISQUE KILN DRAWER GLUCOSE POCT, B Routine 07/05/2023 4:35 PM BISQUE KILN DRAWER PULSE OXIMETRY, CONTINUOUS Routine 07/05/2023 11:01 AM BISQUE KILN DRAWER PULSE OXIMETRY, CONTINUOUS Routine 07/05/2023 11:01 AM BISQUE KILN DRAWER ROBOTIC-ASSISTED KNEE TOTAL ARTHROPLASTY 07/05/2023 7:35 AM BISQUE KILN DRAWER Primary Osteoarthritis Knee Right GLUCOSE POCT, B Routine 07/05/2023 7:22 AM BISQUE KILN DRAWER ECG STAT 07/05/2023 7:10 AM BISQUE KILN DRAWER documented in this encounter Results * (ABNORMAL) Glucose, POCT (07/06/2023 1:06 PM BISQUE KILN DRAWER) Glucose, POCT, B 148(H) 70 - 140 mg/dL 07/06/2023 1:06 PM BISQUE KILN DRAWER RDWG Blood 07/06/2023 1:06 PM BISQUE KILN DRAWER 07/06/2023 1:16 PM BISQUE KILN DRAWER Generic Rals LAB POCT ORDERABLES- MANUAL [facility] [address] [address], [place] RDWG [facility] [place] [address] [place] [address] * (ABNORMAL) Glucose, POCT (07/06/2023 8:02 AM BISQUE KILN DRAWER) Glucose, POCT, B 146(H) 70 - 140 mg/dL 07/06/2023 8:02 AM BISQUE KILN DRAWER RDWG Blood 07/06/2023 8:02 AM BISQUE KILN DRAWER 07/06/2023 8:13 AM BISQUE KILN DRAWER Bee Rals LAB POCT ORDERABLES- MANUAL Performing Organization Address City/[facility] Co de Phone Number [facility] [address] [place] [address], [facility] RDWG [facility] [place] [address] [place] [address] * (ABNORMAL) Hemoglobin A1c (07/06/2023 5:52 AM BISQUE KILN DRAWER) Hemoglobin A1c, B 7.2(H) 4.2 - 5.6 % 07/06/2023 6:50 AM BISQUE KILN DRAWER RDWG Comment: Hemoglobin A1c values greater than or equal to 6.5 percent are diagnostic for diabetes mellitus. ??Diagnosis should be confirmed by repeat testing. ??In diabetic patients, HbA1c goals should be discussed with healthcare provider. Blood (Blood, Venous) 07/06/2023 5:52 AM BISQUE KILN DRAWER 07/06/2023 6:30 AM BISQUE KILN DRAWER Uriel Renner M.D. LAB BLOOD ADD-ON Performing Organization Address City/[facility] Co de Phone Number [facility] [place] [address], [facility] RDWG [facility] [place] [address] * (ABNORMAL) Hemoglobin (07/06/2023 5:52 AM BISQUE KILN DRAWER) Hemoglobin 9.4(L) 11.6 - 15.0 g/dL 07/06/2023 6:37 AM BISQUE KILN DRAWER RDWG Blood (Blood, Venous) 07/06/2023 5:52 AM BISQUE KILN DRAWER 07/06/2023 6:30 AM BISQUE KILN DRAWER Amanda Scott APRN C.N.P., Yogesh. LAB BLO OD ADD-ON [facility] [address] [address], [facility] [place] [address] * (ABNORMAL) Glucose, POCT (07/05/2023 9:34 PM BISQUE KILN DRAWER) Glucose, POCT, B 212(H) 70 - 140 mg/dL 07/05/2023 9:34 PM BISQUE KILN DRAWER RDWG Blood 07/05/2023 9:34 PM BISQUE KILN DRAWER 07/05/2023 9:41 PM BISQUE KILN DRAWER Generic Rals LAB POCT ORDERABLES- MANUAL Performing Organization Address City/[facility]/ZIP Co de Phone Number [facility] [place] [place] [address], [place] RDWG [facility] [place] [address] [place] [address] * (ABNORMAL) Glucose, POCT (07/05/2023 4:35 PM BISQUE KILN DRAWER) Glucose, POCT, B 292(H) 70 - 140 mg/dL 07/05/2023 4:35 PM BISQUE KILN DRAWER RDWG Blood 07/05/2023 4:35 PM BISQUE KILN DRAWER 07/05/2023 4:42 PM BISQUE KILN DRAWER Generic Rals LAB POCT ORDERABLES- MANUAL [facility] [place] [place] [address], [facility] [place] [address] [place] [address] * (ABNORMAL) Glucose, POCT (07/05/2023 7:22 AM BISQUE KILN DRAWER) Glucose, POCT, B 163(H) 70 - 140 mg/dL 07/05/2023 7:22 AM BISQUE KILN DRAWER RDWG Blood 07/05/2023 7:22 AM BISQUE KILN DRAWER 07/05/2023 7:43 AM BISQUE KILN DRAWER Generic Rals LAB POCT ORDERABLES- MANUAL [facility] [address] [place] [address], [facility] RDWG [facility] [place] [address], [place] [address] * ECG 12 Lead (07/05/2023 7:10 AM BISQUE KILN DRAWER) Ventricular Rate ECG/Min 62 BPM MUSE QRSD Interval 84 ms MUSE QT Interval 410 ms MUSE QTC Interval 416 ms MUSE R [place] -54 degrees MUSE T Wave [place] 10 degrees MUSE 07/05/2023 7:10 AM BISQUE KILN DRAWER 07/05/2023 9:51 AM BISQUE KILN DRAWER Impressions MUSE - 07/05/2023 7:21 AM BISQUE KILN DRAWER Normal sinus rhythm Left anterior fascicular block [...] AUBREY Johnson Wilda Armendariz M.D. ECG ORDERABLES MUSE NA documented in this encounter Visit Diagnoses Diagnosis Primary Osteoarthritis Knee Right- Primary Primary Osteoarthritis Knee Right documented in this encounter Admitting Diagnoses Diagnosis Primary Osteoarthritis Knee Right documented in this encounter Administered Medications Inactive Administered Medications - up to 3 most recent administrations Medication Order MAR Action Action Date Dose Rate Site acetaminophen tablet 1,000 mg (TYLENOL) 1,000 mg, oral, Once, On Mon07/05/23 at 0645, For 1 dose, Pre-Op Given 07/05/2023 7:14 AM BISQUE KILN DRAWER 1,000 mg acetaminophen tablet 1,000 mg (TYLENOL) 1,000 mg, oral, Every 6 hours, First dose on Mon07/05/23 at 1300 Given 07/06/2023 6:31 AM BISQUE KILN DRAWER 1,000 mg Given 07/06/2023 12:20 AM BISQUE KILN DRAWER 1,000 mg Given 07/05/2023 6:30 PM BISQUE KILN DRAWER 1,000 mg ceFAZolin injection 2 g (ANCEF) 2 g, intravenous, Every 8 hours, First dose on Mon07/05/23 at 1530, For 2 doses, If needed, reconstitute vial per package insert instructions. See IVAG for administration guidelines., Drug Monitoring Program: Pharmacist to adjust medication dosing based on indication and drug clearance factors., Indications: Prophylaxis, surgical Given 07/06/2023 12:20 AM BISQUE KILN DRAWER 2 g Given 07/05/2023 2:33 PM BISQUE KILN DRAWER 2 g celecoxib capsule 200 mg (CeleBREX) 200 mg, oral, Once, On Mon07/05/23 at 0645, For 1 dose, Pre-Op Given 07/05/2023 7:14 AM BISQUE KILN DRAWER 200 mg chlorhexidine 0.12 % mouthwash 15 [...] is not oversaturated. Given 07/05/2023 7:14 AM BISQUE KILN DRAWER 15 mL dextrose 40 % gel 15 [...] 40 mg, subcutaneous, Daily, First dose on Misty 07/06/23 at 0900 Given 07/06/2023 9:42 AM BISQUE KILN DRAWER 40 mg Right Lower Abdomen glucagon injection [...] haloperidol then granisetron) Given 07/05/2023 10:31 AM BISQUE KILN DRAWER 1 mg haloperidol lactate injection 1 mg [...] haloperidol then prochlorperazine) Given 07/05/2023 12:47 PM BISQUE KILN DRAWER 1 mg insulin aspart U-100 injection 0-7 [...] writing Insulin orders Given 07/05/2023 5:35 PM BISQUE KILN DRAWER 4 Units Right Lower Abdomen insulin aspart [...] drug clearance factors. Given 07/06/2023 9:42 AM BISQUE KILN DRAWER 15 mg Given 07/05/2023 8:56 PM BISQUE KILN DRAWER 15 mg Given 07/05/2023 1:40 PM BISQUE KILN DRAWER 15 mg Lactated Ringer's 20 mL/hr, intravenous, Continuous, Starting on Mon07/05/23 at 0645, Pre-Op New Bag 07/05/2023 9:24 AM BISQUE KILN DRAWER Restarted 07/05/2023 7:46 AM BISQUE KILN DRAWER New Bag 07/05/2023 7:19 AM BISQUE KILN DRAWER 20 mL/hr 20 mL/hr Lactated Ringer's 50 mL/hr, intravenous, Continuous, Starting on Mon07/05/23 at 1130 Continued from OR 07/05/2023 11:18 AM BISQUE KILN DRAWER 50 mL/hr 50 mL/hr oxyCODONE IR tablet [...] on Mon07/05/23 at 1101, Second line therapy povidone-iodine 0.25% in NaCl 0.9% sterile irrigation solution As needed, Starting on Mon07/05/23 at 0832, Intra-Op Given 07/05/2023 8:32 AM BISQUE KILN DRAWER 1,000 mL Right Knee prochlorperazine injection 5 mg (COMPAZINE) 5 mg, intravenous, Every 6 hours PRN, nausea, vomiting, Starting on Mon07/05/23 at 1101, For 48 hours, RASS must be -2 or higher to administer. Reassess for nausea/vomiting after at least 10 minutes. If nausea or vomiting persists administer next ordered antiemetic medications (order for antiemetic medication administration ondansetron then haloperidol then prochlorperazine) Given 07/05/2023 1:49 PM BISQUE KILN DRAWER 5 mg ROPivacaine (PF) 100 mg, EPINEPHrine 50 mcg, ketorolac 15 mg in NaCl 0.9% 60 mL injection (ARTHROPLASTY BLOCK 50-74.9 kg) As needed, Starting on Mon07/05/23 at 0832, Intra-Op Given 07/05/2023 8:32 AM BISQUE KILN DRAWER 60 mL Right Knee rosuvastatin tablet 5 mg (CRESTOR) 5 mg, oral, Daily at bedtime, First dose on Mon07/05/23 at 2100 Given 07/05/2023 8:56 PM BISQUE KILN DRAWER 5 mg scopolamine base 1 mg over 3 days 1 patch (TRANSDERM SCOP) 1 patch, transdermal, Administer over 72 Hours, Every 72 hours, First dose on Mon07/05/23 at 0730, Pre-Op, Contains 1.5 mg to deliver 1 mg/72 hours. Medication Applied 07/05/2023 7:19 AM BISQUE KILN DRAWER 1 patch Behind Left Ear sennosides-docusate sodium 8.6-50 mg per tablet 1 tablet (SENOKOT-S) 1 tablet, oral, 2 times daily, First dose on Mon07/05/23 at 2100, Do not give if patient has diarrhea. Given 07/06/2023 9:42 AM BISQUE KILN DRAWER 1 tablet Given 07/05/2023 8:56 PM BISQUE KILN DRAWER 1 tablet traMADoL tablet 100 mg (ULTRAM) [...] Recently Administered Medications Times are shown in BISQUE KILN DRAWER. Scheduled Medication Order 07/04/2023 07/05/2023 07/06/2023 acetaminophen tablet 1,000 mg (TYLENOL) (COMPLETED) 1,000 mg, oral, Once, On Mon07/05/23 at 0645, For 1 dose, Pre-Op 0714 (Given - Provider: Natali Penaloza R.N.) acetaminophen tablet 1,000 mg (TYLENOL) 1,000 mg, oral, Every 6 hours, First dose on Mon07/05/23 at 1300 1340 (Given - Provider: Dianne Barron R.N.)1830 (Given - Provider: Dianne Barron R.N.) 0020 (Given - Provider: Lenore Marquez R.N.)0631 (Given - Provider: Precious Thompson R.N.)1327 (Not Given - Provider: Hannah Mccartney R.N. - Reason: Patient/family refused) ceFAZolin injection 2 g (ANCEF) (COMPLETED) 2 g, intravenous, Every 8 hours, First dose on Mon07/05/23 at 1530, For 2 doses, If needed, reconstitute vial per package insert instructions. See IVAG for administration guidelines., Drug Monitoring Program: Pharmacist to adjust medication dosing based on indication and drug clearance factors., Indications: Prophylaxis, surgical 1433 (Given - Provider: Dianne Barron R.N.) 0020 (Given - Provider: Lenore Marquez R.N.) [...] 0802 (Given - Provider: Evan Hernandez APRN, CRNA, R.N.) celecoxib capsule 200 mg (CeleBREX) (COMPLETED) 200 mg, oral, Once, On Mon07/05/23 at 0645, For 1 dose, Pre-Op 0714 (Given - Provider: Natali Penaloza R.N.) enoxaparin injection 40 mg (LOVENOX) 40 mg, [...] Insulin orders 1735 (Given - Provider: Dianne Barron R.N.) 0823 (Not Given - Provider: Hannah [...] factors. 1340 (Given - Provider: Dianne Barron R.N.)2055 (Given - Provider: Lenore Marquez R.N.) 0252 (Not Given - Provider: Precious Thompson [...] patient has diarrhea. 2055 (Given - Provider: Lenore Marquez R.N.) 0942 (Given - Provider: Hannah Mccartney R.N.) tranexamic acid in NaCl IVPB 1,000 mg (CYKLOKAPRON) (COMPLETED) 1,000 mg (1 g), intravenous, at 300 mL/hr, Administer over 20 Minutes, Once, On Mon07/05/23 at 0700, For 1 dose, Intra-Op, Administer in OR upon induction 0819 (Given - Provider: Evan Hernandez APRN, CRNA, R.N.) tranexamic acid in NaCl IVPB 1,000 mg (CYKLOKAPRON) (COMPLETED) 1,000 mg (1 g), intravenous, at 300 mL/hr, Administer over 20 Minutes, Once, On Mon07/05/23 at 0700, For 1 dose, Intra-Op, Administer in OR just before dropping tourniquet 0911 (Given - Provider: Evan Hernandez APRN, CRNA, R.N.) Continuous Medication Order 07/04/2023 07/05/2023 07/06/2023 Lactated Ringer's (CANCELED) 20 mL/hr, intravenous, Continuous, Starting on Mon07/05/23 at 0645, Pre-Op 0719 (New Bag - Provider: Natali Penaloza R.N.)0745 (Paused - Provider: Evan Hernandez APRN, CRNA, R.N. - Comment: Switch to gravity)7288 (Restarted - Provider: Evan Hernandez APRN, CRNA, R.N.)0969 (New Bag - Provider: Evan Hernandez APRN, CRNA, R.N.) Lactated Ringer's 50 mL/hr, intravenous, Continuous, [...] older documented in this encounter Care Teams Associate Professor Plant Pathology Relationship Specialty Start Date End Date None Reported, Pcp PCP - General Family Medicine 07/05/23 documented as of this encounter
--- OUTSIDE RECORDS SUMMARY | 2023-09-13 11:35 | XMS_ITS | Encounter Summary ---
Author Name Unknown Organization [facility] Address [address] [place] [address] Care Team Providers Care Radar Repairer Name Role Phone Unavailable Primary Care Provider Unavailabl e Encounter Details Date Type Department Care Team (Late st Contact Info) Description 09/20/2022 Clinical Communication Department of Orthopedic Surgery in [place], [place] [address] [place] [phone] Uriel Renner M.D. [address] [place] [phone] Social History Tobacco Use Types Packs/Day Years [...] Family Three times a week 04/11/2019 Attends [employer] Not on file 04/11 Active Member [...] Living Expenses Not hard at all 04/11/2019 Exercise Vital Sign Answer Date Recorde d [...] encounter Miscellaneous Notes * Telephone Encounter - Adelita Oakes L.P.N. - 09/27/2022 11:11 AM CAR SALESMAN New orders per Dr. Renner [facility]. SALESMAN * Telephone Encounter - Jen Valencia L.P.N. - 09/23/2022 1:43 PM CAR SALESMAN Will discuss with Dr Renner on Monday SALESMAN * Addendum Note - Hood Davenport R.N. - 09/23/2022 10:50 AM CSTAddended by: HOOD DAVENPORT on: 09/23/2022 10:50 AM Modules accepted: Orders SALESMAN * Telephone Encounter - Adelita Oakes L.P.N. - 09/23/2022 10:35 AM CAR SALESMAN Called patient to schedule injection and aspiration. Dr. Christian next opening is 11/10/22. Patient states can not wait that long and has an appointment with [facility] in [place] on 10/13/22. Patient calling down to [place] to clarify if procedures will be done that day. Patient may need a new order for [place] placed by Dr. Renner for a Left L3-4 Interlaminar BI and L4-5 Cyst Aspiration. Patient will call clinic back. SALESMAN * Telephone Encounter - Keny Keith II, M.D. - 09/23/2022 9:55 AM CAR SALESMAN Ok to schedule a L L3-[address] L4-5 cyst aspiration in the comments. Thank you! SALESMAN * Telephone Encounter - Adelita Oakes L.P.N. - 09/22/2022 8:59 AM CAR SALESMAN Please review injection request from Dr. Renner. Thank you. SALESMAN * Telephone Encounter - Sarah Pineda R.N. - 09/20/2022 10:27 AM CAR SALESMAN Will route to Dr. Keith for review once clinical notes are completed. SALESMAN * Telephone Encounter - Jen Valencia L.P.N. - 09/20/2022 10:20 AM CAR SALESMAN Please schedule patient for left sided L 3-[address] Keith. Concider lancing L 4-[address] Renner. SALESMAN documented in this encounter Plan of Treatment Upcoming Encounters Date Type Department Care Team (Late st Contact Info) Description 09/26/2023 10:30 AM CAR SALESMAN Office Visit Department of Orthopedic Surgery in [address] [phone] Amanda Scott APRN, C.N.P., D.N.P. [address] [place] [phone] Discharge Disposition: Home or Self Care documented as of this encounter Visit Diagnoses Diagnosis Radiculopathy Lumbar- Primary Pain Low Back Unspecified documented in this encounter
--- OUTSIDE RECORDS SUMMARY | 2023-09-13 11:35 | XMS_ITS | Encounter Summary ---
Author Name Unknown Organization [facility] Address [address] [place] [address] Care Team Providers Care Tomato Pulper Operator Name Role Phone Unavailable Primary Care Provider Unavailabl e Reason for Visit * Reason Onset Date Comments Pre-visit Intake 10/21/2022 [facility] Encounter Details Date Type Department Care Team (Latest Contact Info) Description 10/21/2022 1:45 PM PRODUCT/INDUSTRY CONSULTANT Clinical Communication Virtual Review in [place], [place] [address] [place] [address] Pre-visit Intake ([facility]) Social History Tobacco Use Types Packs/Day Years [...] Date Recorded Dental: Regular Dentist Unknown 10/07/19 Sex and Gender Information Value Date Recorded Sex Assigned at Not on file Gender Identity Not on file Sexual Orientation Straight 10/24/2022 2: 54 PM CDT documented as of this encounter Plan of Treatment Upcoming Encounters Date Type Department Care Team (Late st Contact Info) Description 09/26/2023 10:30 AM PRODUCT/INDUSTRY CONSULTANT Office Visit Department of Orthopedic Surgery in [address] [phone] Amanda Scott APRN, C.N.P., D.N.P. [address] [place] [phone] Discharge Disposition: Home or Self Care documented as of this encounter Visit Diagnoses Not on filedocumented in this encounter
--- OUTSIDE RECORDS SUMMARY | 2023-09-13 11:35 | XMS_ITS | Encounter Summary ---
Author Name Unknown Organization [facility] Address [address] [place] [id number] Care Team Providers Care Business Administration Teacher Name Role Phone Unavailable Primary Care Provider Unavailabl e Reason for Referral * MRI/CAT/PET Scan (Routine) - Closed Specialty Diagnoses / Procedures Referred By Contac t Referred To Contact Radiology Diagnoses Radiculopathy Lumbosacral Procedures CT Facet Synovial Cyst Aspiration or Puncture or Injection Bilateral Aureliano Hernandez P.A.-C., M.S. [address] [place] [phone] [facility] Referral ID Status Reason Start Date Expiration Date Visits Re quested Visits Authorized [id number] Closed 09/30/2022 09/30/2023 1 1 IONAL DISABILITIES TEACHER * MRI/CAT/PET Scan (Routine) - Closed Specialty Diagnoses / Procedures Referred By Contac t Referred To Contact Radiology Diagnoses Radiculopathy Lumbosacral Procedures CT Lumbar Spine Transforaminal Epidural Injection Left Aureliano Hernandez P.A.-C., M.S. [address] [place] [phone] [facility] Referral ID Status Reason Start Date Expiration Date Visits Re quested Visits Authorized [id number] Closed 09/30/2022 09/30/2023 1 1 IONAL DISABILITIES TEACHER Reason for Visit * MRI/CAT/PET Scan (Routine) - Closed Specialty Diagnoses / Procedures Referred By Carley t Referred To Contact Radiology Diagnoses Radiculopathy Lumbosacral Procedures CT Lumbar Spine Transforaminal Epidural Injection Left Aureliano Hernandez P.A.-C., M.S. [address] [place] [phone] [facility] Referral ID Status Reason Start Date Expiration Date Visits Re quested Visits Authorized [id number] Closed 09/30/2022 09/30/2023 1 1 Encounter Details Date Type Department Care Team (Latest Contact Info) Description 09/30/2022 11:28 AM EMOTIONAL DISABILITIES TEACHER - 09/30/2022 11:59 PM EMOTIONAL DISABILITIES TEACHER Hospital Encounter Department of Radiology, [facility] in [place], [place] [address] [place] [phone] Aureliano Hernandez P.A.-C., M.S. [address] [place] [phone] Dale Black M.D. [address] [place] [phone] Radiculopathy Lumbosacral Discharge Disposition: Home or Self Care Social History Tobacco Use Types Packs/Day Years Used Date Smoking Tobacco: Former Cigarettes 0 Smokeless Tobacco: Never Tobacco Cessation:Counseling Given: Not Answered Alcohol Use Standard Drinks/Week Comments Yes 0 (1 standard drink = 0.6 oz pur e alcohol) Social Connection and Isolat ion Panel [NHANES] Answer Date Recorded Frequency of Communication w ith Friends and Family More than three times a week 04/11/2019 Frequency of Social Gatherin gs with Friends and Family Three times a week 04/11/2019 Attends Congregational Services Not on file 04/11 Active Member [...] Sign Reading Time Taken Comments Blood Pressure 168/81 09/30/2022 12:27 PM EMOTIONAL DISABILITIES TEACHER Pulse 86 09/30/2022 12:27 PM EMOTIONAL DISABILITIES TEACHER Temperature - - Respiratory Rate - - Oxygen Saturation 97% 09/30/2022 12:27 PM EMOTIONAL DISABILITIES TEACHER Inhaled Oxygen Concentration - - Weight - - Height - - Body Mass Index - - documented in this encounter Discharge Instructions * Attachments The following attachments cannot be sent through Care Everywhere. * Spinal Injections: Epidural, Facet Joint, Sacroiliac Joint and Nerve Root (Afghan) documented in this encounter Medications at Time [...] needed for indigestion or heartburn. 0 07/05/2023 estradioL (ESTRACE) 0.1 mg/g (0.01%) vaginal cream Use nightly for 14 doses, then 2-3 nights each week. 42 g 3 02/02/2021 07/05/2023 gabapentin (NEURONTIN) 100 mg capsule Take 1 capsule (100 mg total) by mouth 3 (three) times a day as needed (Pain). 90 capsule 1 11/06/2019 07/05/2023 levothyroxine (SYNTHROID, LEVOTHROID) 25 mcg tablet Take 25 mcg by mouth daily. 3 05/21/2019 03/31/2023 magnesium oxide 500 mg tablet tablet Take 1 tablet by mouth daily. 0 07/05/2023 metFORMIN XR (GLUCOPHAGE-XR) 500 mg 24 hr tablet Take 1,000 mg by mouth 2 (two) times a day with meals. 3 05/21/2019 07/05/2023 methylPREDNISolone (MEDROL DOSEPAK) 4 mg tablet Take 1 tablet (4 mg total) by mouth See Admin Instructions. Use as directed by package instructions 21 tablet 0 09/02/2022 03/31/2023 omega-3 fatty acids-fish oil 300-1,000 mg capsule Take 500 mg by mouth daily. 0 07/05/2023 oxybutynin (DITROPAN) 5 mg tablet Take 2.5 mg by mouth 2 (two) times a day. 0 01/24/2021 07/05/2023 documented as of this encounter Plan of Treatment Upcoming Encounters Date Type Department Care Team (Late st Contact Info) Description 09/26/2023 10:30 AM EMOTIONAL DISABILITIES TEACHER Office Visit Department of Orthopedic Surgery in [address] [phone] Amanda Scott APRN, C.N.P., D.N.P. [address] [place] [phone] Discharge Disposition: Home or Self Care documented as of this encounter Procedures Procedure Name Priority Date/Time Associated Diagnosis Comments CT FACET SYNOVIAL CYST ASPIRATION OR PUNCTURE OR INJECTION BILATERAL RAD - Routine (most inpatients and all outpatients) 09/30/2022 12:58 PM EMOTIONAL DISABILITIES TEACHER Radiculopathy Lumbosacral CT LUMBAR SPINE TRANSFORAMINAL EPIDURAL INJECTION LEFT RAD - Routine (most inpatients and all outpatients) 09/30/2022 12:58 PM EMOTIONAL DISABILITIES TEACHER Radiculopathy Lumbosacral documented in this encounter Results * CT Facet Synovial Cyst Aspiration or Puncture or Injection Bilateral (09/30/2022 12:58 PM EMOTIONAL DISABILITIES TEACHER) Anatomical Region Laterality Modality Lumbar Spine, Musculoskeleta l RST LOS, Neuroradiology ARZ LOS, Procedure FLA LOS, Neuroradiology FLA LOS Bilateral Computed Tomography, Compu jonathan Tomography 09/30/2022 3:17 PM EMOTIONAL DISABILITIES TEACHER Impressions 09/30/2022 3:28 PM EMOTIONAL DISABILITIES TEACHER 1. Transforaminal epidural steroid injection. Left L4-5 2. Facet joint aspiration and injection. ??Left L4-5 NR Narrative 09/30/2022 3:28 PM EMOTIONAL DISABILITIES TEACHER EXAM: CT LUMBAR SPINE TRANSFORAMINAL EPIDURAL INJECTION LEFT; CT FACET SYNOVIAL CYST ASPIRATION OR PUNCTURE OR INJECTION BILATERAL PROCEDURE: ?? 1. CT guided Left L4 Transforaminal Epidural Steroid Injection 2. CT guided Left L4-5 Facet Joint Aspiration and Injection Pain Score: Pre-procedural pain was rated: 10/10 ?? Post-procedural pain was rated: 0/10 ?? Medications: For the epidural injection: Steroid: 10 mg dexamethasone Local anesthetic: ??20 mg 2% lidocaine For the facet injection: Steroid: 0.6mg INDICATION: The patient reports the current pain syndrome to be of 0-3 months duration and presents today for a new injection. TECHNIQUE: The patient describes an approximately 2 month history of low back pain and left leg pain and numbness. This began after a fall. She describes the leg symptoms in a distribution that best approximates L4. Lumbar spine MRI 09/16/2022 demonstrates multifactorial advanced spinal stenosis at L4-5, in part due to a left L4-5 synovial cyst. A left L4-5 transforaminal epidural steroid injection and left L4-5 facet/synovial cyst intervention has been requested. This is reasonable. Given the specific pathoanatomy, the facet/synovial cyst intervention today was a facet joint aspiration with minimal injection of steroid. Should the patient not get significant response, a future CT guided attempt could be made to directly puncture and aspirate/fenestrate the cyst. Given its large size, and the high-grade spinal canal narrowing, rupture is likely not a viable option. Using usual sterile technique, CT guidance, and [...] needle was cleared with lidocaine and removed. Using usual sterile technique, CT guidance, and local anesthetic, a 3.5 inch 22- gauge spinal needle was advanced to the posterior aspect of the facet joint. There was visual evidence and tactile sensation of entering the joint. A small amount of air confirmed intra-articular positioning. The joint was aspirated several times, and approximately 0.4 cc of blood-tinged synovial fluid was obtained. 0.1 cc betamethasone was administered into the joint. The needle was reselected and removed. The needle was withdrawn, restyletted, and removed. The patient experienced no complication. [...] team members, residents, and fellows were discussed. Procedure Note Dale Black M.D. - 09/30/2022 EXAM: CT LUMBAR SPINE TRANSFORAMINAL EPIDURAL INJECTION LEFT; CT FACETSYNOVIAL CYST ASPIRATION OR PUNCTURE OR INJECTION BILATERAL PROCEDURE: 1. CT guided Left L4 Transforaminal Epidural Steroid Injection 2. CT guided Left L4-5 Facet Joint Aspiration and Injection Pain Score: Pre-procedural pain was rated: 10/10 Post-procedural pain was rated: 0/10 Medications: For the epidural injection: Steroid: 10 mg dexamethasone Local anesthetic: 20 mg 2% lidocaine For the facet injection: Steroid: 0.6mg INDICATION: The patient reports the current pain syndrome to be of 0-3months duration and presents today for a new injection. TECHNIQUE: The patient describes an approximately 2 month history of low back painand left leg pain and numbness. This began after a fall. She describes the leg symptoms in adistribution that best approximates L4. Lumbar spine MRI 09/16/2022 demonstrates multifactorialadvanced spinal stenosis at L4-5, in part due to a left L4-5 synovial cyst. A left L4-5 transforaminalepidural steroid injection and left L4-5 facet/synovial cyst intervention has beenrequested. This is reasonable. Given the specific pathoanatomy, the facet/synovial cyst interventiontoday was a facet joint aspiration with minimal injection of steroid. Should the patient not getsignificant response, a future CT guided attempt could be made to directly puncture andaspirate/fenestrate the cyst. Given its large size, and the high-grade spinal canal narrowing, rupture islikely not a viable option. Using usual sterile technique, CT guidance, and local anesthesia, a 4.75inch 25- gauge spinal needle was advanced into the neural foramen using an infraneural approach. Withfinal needle tip position, a small amount of iodinated contrast confirmed equal peripheral andcentral epidural flow without intrathecal uptake and with anteroposterior distribution which wasventral. Transient vascular uptake was not observed with final needle position. A test dose ofpreservative free lidocaine was administered. Following 2 minutes, there were no central neurologicchanges. Dexamethasone was deposited in this location. The needle was cleared with lidocaine andremoved. Using usual sterile technique, CT guidance, and local anesthetic, a 3.5inch 22- gauge spinal needle was advanced to the posterior aspect of the facet joint. There was visualevidence and tactile sensation of entering the joint. A small amount of air confirmedintra-articular positioning. The joint was aspirated several times, and approximately 0.4 cc ofblood-tinged synovial fluid was obtained. 0.1 cc betamethasone was administered into the joint. The needlewas reselected and removed. The needle was withdrawn, restyletted, and removed. The patientexperienced no complication. PREPROCEDURE: Patient seen and evaluated. Allergies, pertinentmedications, and history reviewed. Discussed risks (including, but not limited to, bleeding, infection, nerveinjury, and paralysis), benefits, alternatives for procedure, and obtained informed consent. Theside and site of the procedure were marked, when applicable, at the time of consent. Patientunderstands information and questions answered. Immediately prior to starting the procedure, in thepresence of the assisting personnel, procedural pause was conducted to verify correct patientidentity and verification of procedure to be performed, and as applicable, correct side and site,correct patient position, availability of implants, special equipment, or special requirements, andall image and specimen identification data. The roles and responsibilities of care team members,residents, and fellows were discussed. IMPRESSION: 1. Transforaminal epidural steroid injection. Left L4-5 2. Facet joint aspiration and injection. Left L4-5 NR Aureliano Hernandez P.A.-C., M.S. IMG CT P ROCEDURES * CT Lumbar Spine Transforaminal Epidural Injection Left (09/30/2022 12:58 PM EMOTIONAL DISABILITIES TEACHER) Anatomical Region Laterality Modality Lumbar Spine, Neuroradiology RST LOS, Musculoskeletal RST LOS, Neuroradiology ARZ LOS, Procedure FLA LOS, Neuroradiology FLA LOS Left Computed Tomography, Compute d Tomography 09/30/2022 3:17 PM EMOTIONAL DISABILITIES TEACHER Impressions 09/30/2022 3:28 PM EMOTIONAL DISABILITIES TEACHER 1. Transforaminal epidural steroid injection. Left L4-5 2. Facet joint aspiration and injection. ??Left L4-5 NR Narrative 09/30/2022 3:28 PM EMOTIONAL DISABILITIES TEACHER EXAM: CT LUMBAR SPINE TRANSFORAMINAL EPIDURAL INJECTION LEFT; CT FACET SYNOVIAL CYST ASPIRATION OR PUNCTURE OR INJECTION BILATERAL PROCEDURE: ?? 1. CT guided Left L4 Transforaminal Epidural Steroid Injection 2. CT guided Left L4-5 Facet Joint Aspiration and Injection Pain Score: Pre-procedural pain was rated: 10/10 ?? Post-procedural pain was rated: 0/10 ?? Medications: For the epidural injection: Steroid: 10 mg dexamethasone Local anesthetic: ??20 mg 2% lidocaine For the facet injection: Steroid: 0.6mg INDICATION: The patient reports the current pain syndrome to be of 0-3 months duration and presents today for a new injection. TECHNIQUE: The patient describes an approximately 2 month history of low back pain and left leg pain and numbness. This began after a fall. She describes the leg symptoms in a distribution that best approximates L4. Lumbar spine MRI 09/16/2022 demonstrates multifactorial advanced spinal stenosis at L4-5, in part due to a left L4-5 synovial cyst. A left L4-5 transforaminal epidural steroid injection and left L4-5 facet/synovial cyst intervention has been requested. This is reasonable. Given the specific pathoanatomy, the facet/synovial cyst intervention today was a facet joint aspiration with minimal injection of steroid. Should the patient not get significant response, a future CT guided attempt could be made to directly puncture and aspirate/fenestrate the cyst. Given its large size, and the high-grade spinal canal narrowing, rupture is likely not a viable option. Using usual sterile technique, CT guidance, and [...] needle was cleared with lidocaine and removed. Using usual sterile technique, CT guidance, and local anesthetic, a 3.5 inch 22- gauge spinal needle was advanced to the posterior aspect of the facet joint. There was visual evidence and tactile sensation of entering the joint. A small amount of air confirmed intra-articular positioning. The joint was aspirated several times, and approximately 0.4 cc of blood-tinged synovial fluid was obtained. 0.1 cc betamethasone was administered into the joint. The needle was reselected and removed. The needle was withdrawn, restyletted, and removed. The patient experienced no complication. [...] team members, residents, and fellows were discussed. Procedure Note Dale Black M.D. - 09/30/2022 EXAM: CT LUMBAR SPINE TRANSFORAMINAL EPIDURAL INJECTION LEFT; CT FACETSYNOVIAL CYST ASPIRATION OR PUNCTURE OR INJECTION BILATERAL PROCEDURE: 1. CT guided Left L4 Transforaminal Epidural Steroid Injection 2. CT guided Left L4-5 Facet Joint Aspiration and Injection Pain Score: Pre-procedural pain was rated: 10/10 Post-procedural pain was rated: 0/10 Medications: For the epidural injection: Steroid: 10 mg dexamethasone Local anesthetic: 20 mg 2% lidocaine For the facet injection: Steroid: 0.6mg INDICATION: The patient reports the current pain syndrome to be of 0-3months duration and presents today for a new injection. TECHNIQUE: The patient describes an approximately 2 month history of low back painand left leg pain and numbness. This began after a fall. She describes the leg symptoms in adistribution that best approximates L4. Lumbar spine MRI 09/16/2022 demonstrates multifactorialadvanced spinal stenosis at L4-5, in part due to a left L4-5 synovial cyst. A left L4-5 transforaminalepidural steroid injection and left L4-5 facet/synovial cyst intervention has beenrequested. This is reasonable. Given the specific pathoanatomy, the facet/synovial cyst interventiontoday was a facet joint aspiration with minimal injection of steroid. Should the patient not getsignificant response, a future CT guided attempt could be made to directly puncture andaspirate/fenestrate the cyst. Given its large size, and the high-grade spinal canal narrowing, rupture islikely not a viable option. Using usual sterile technique, CT guidance, and local anesthesia, a 4.75inch 25- gauge spinal needle was advanced into the neural foramen using an infraneural approach. Withfinal needle tip position, a small amount of iodinated contrast confirmed equal peripheral andcentral epidural flow without intrathecal uptake and with anteroposterior distribution which wasventral. Transient vascular uptake was not observed with final needle position. A test dose ofpreservative free lidocaine was administered. Following 2 minutes, there were no central neurologicchanges. Dexamethasone was deposited in this location. The needle was cleared with lidocaine andremoved. Using usual sterile technique, CT guidance, and local anesthetic, a 3.5inch 22- gauge spinal needle was advanced to the posterior aspect of the facet joint. There was visualevidence and tactile sensation of entering the joint. A small amount of air confirmedintra-articular positioning. The joint was aspirated several times, and approximately 0.4 cc ofblood-tinged synovial fluid was obtained. 0.1 cc betamethasone was administered into the joint. The needlewas reselected and removed. The needle was withdrawn, restyletted, and removed. The patientexperienced no complication. PREPROCEDURE: Patient seen and evaluated. Allergies, pertinentmedications, and history reviewed. Discussed risks (including, but not limited to, bleeding, infection, nerveinjury, and paralysis), benefits, alternatives for procedure, and obtained informed consent. Theside and site of the procedure were marked, when applicable, at the time of consent. Patientunderstands information and questions answered. Immediately prior to starting the procedure, in thepresence of the assisting personnel, procedural pause was conducted to verify correct patientidentity and verification of procedure to be performed, and as applicable, correct side and site,correct patient position, availability of implants, special equipment, or special requirements, andall image and specimen identification data. The roles and responsibilities of care team members,residents, and fellows were discussed. IMPRESSION: 1. Transforaminal epidural steroid injection. Left L4-5 2. Facet joint aspiration and injection. Left L4-5 NR Prosper Finch P.A.-C.SJudith IMG CT P ROCEDURES documented in this encounter Visit Diagnoses Diagnosis Radiculopathy Lumbosacral documented in this encounter Administered Medications Inactive Administered Medications - up to 3 most recent administrations Medication Order MAR Action Action Date Dose Rate Site betamethasone acetate & sodium phosphate injection (CELESTONE SOLUSPAN) Code/trauma/sedation medication, Starting on Mon09/30/22 at 1253 Given 09/30/2022 12:53 PM EMOTIONAL DISABILITIES TEACHER 2 mg Back dexAMETHasone injection (DECADRON) Code/trauma/sedation medication, Starting on Mon09/30/22 at 1245 Given 09/30/2022 12:45 PM EMOTIONAL DISABILITIES TEACHER 10 mg Back iohexoL 300 mg iodine/mL solution (OMNIPAQUE) Code/trauma/sedation medication, Starting on Mon09/30/22 at 1242 Given 09/30/2022 12:42 PM EMOTIONAL DISABILITIES TEACHER 0.5 mL Back lidocaine (PF) 20 mg/mL (2 %) injection (XYLOCAINE) Code/trauma/sedation medication, Starting on Mon09/30/22 at 1243 Given 09/30/2022 12:43 PM EMOTIONAL DISABILITIES TEACHER 1 mL Back lidocaine 10 mg/mL (1 %) injection (XYLOCAINE) Code/trauma/sedation medication, Starting on Mon09/30/22 at 1239 Given 09/30/2022 12:39 PM EMOTIONAL DISABILITIES TEACHER 4 mL Back sodium chloride (PF) 0.9 % injection injection, Code/trauma/sedation medication, Starting on Mon09/30/22 at 1242 Given 09/30/2022 12:42 PM EMOTIONAL DISABILITIES TEACHER 1.5 mL B ack documented in this encounter Active and Recently Administered Medications Times are shown in EMOTIONAL DISABILITIES TEACHER. PRN Medication Order 09/28/2022 09/29/2022 09/30/2022 betamethasone acetate & sodium phosphate injection (CELESTONE SOLUSPAN) (COMPLETED) Code/trauma/sedation medication, Starting on Mon09/30/22 at 1253 1253 (Given - Provid er: Dale Black M.D.) dexAMETHasone injection (DECADRON) (COMPLETED) Code/trauma/sedation medication, Starting on Mon09/30/22 at 1245 1245 (Given - Provid er: Dale Black M.D.) iohexoL 300 mg iodine/mL solution (OMNIPAQUE) (COMPLETED) Code/trauma/sedation medication, Starting on Mon09/30/22 at 1242 1242 (Given - Provid er: Dael Black M.D.) lidocaine (PF) 20 mg/mL (2 %) injection (XYLOCAINE) (COMPLETED) Code/trauma/sedation medication, Starting on Mon09/30/22 at 1243 1243 (Given - Provid er: Dale Black M.D.) lidocaine 10 mg/mL (1 %) injection (XYLOCAINE) (COMPLETED) Code/trauma/sedation medication, Starting on Mon09/30/22 at 1239 1239 (Given - Provid er: Dale Black M.D.) sodium chloride (PF) 0.9 % injection (COMPLETED) injection, Code/trauma/sedation medication, Starting on Mon09/30/22 at 1242 1242 (Given - Provid er: Dale Black M.D.) documented in this encounter
--- OUTSIDE RECORDS SUMMARY | 2023-09-13 11:35 | XMS_ITS | Encounter Summary ---
Author Name Unknown Organization [facility] Address [address] [place] [address] Care Team Providers Care Salvationist Name Role Phone Unavailable Primary Care Provider Unavailabl e Reason for Referral * Outpatient (Routine) - Closed Specialty Diagnoses / Procedures Referred By Contac t Referred To Contact Orthopedic Surgery Diagnoses Radiculopathy Lumbar Uriel Renner M.D. [address] [place] [address] [facility] Referral ID Status Reason Start Date Expiration Date Visits Re quested Visits Authorized [id number] Closed 09/20/2022 09/20/2023 1 1 DOFFER Reason for Visit * Outpatient (Routine) - Closed Specialty Diagnoses / Procedures Referred By Contac t Referred To Contact Orthopedic Surgery Amanda Scott APRN, C.N.P., D.N.P. [address] [place] [address] [facility] Referral ID Status Reason Start Date Expiration Date Visits Re quested Visits Authorized [id number] Closed 09/02/2022 09/01/2025 1 1 Encounter Details Date Type Department Care Team (Late st Contact Info) Description 09/20/2022 10:15 AM LOOM DOFFER Office Visit Department of Orthopedic Surgery in [address] [place] [phone] Uriel Renner M.D. [address] [facility] [place] [phone] Pain Low Back Unspecified (Primary Dx); Radiculopathy Lumbar Social History Tobacco Use Types Packs/Day Years [...] Family Three times a week 04/11/2019 Attends Cheondoism Services Not on file 04/11 Active Member [...] Consult Notes * Uriel Renner M.D. - 09/20/2022 10:15 AM CST Heather is a 76-year-old woman who is here in regard to her back. We sent her for an MRI of her backfor problems with persistent pain primarily in her left leg. She returns today to discuss the results of this. OBJECTIVE DIAGNOSTICS The MRI of her lumbar spine demonstrates significant degenerative changes associated with L4-5 and to a lesser extent L3-4 with quite severe stenosis particularly at L4-5. She has a large synovial cyst protruding superiorly from L4-5. ASSESSMENT / PLAN Heather is a 76-year-old woman dealing with lumbar stenosis and persistent pain referred into her left leg. This is likely associated with facet arthritis stenosis at L4-5 along with the synovial cyst. We discussed with her the treatment options. We will plan to proceed with an epidural injection atL4-5 in the hopes that this will help alleviate her symptoms. Certainly would hope that there may be some ability to pop this synovial cyst but we will start with injection treatments, but also, given the severity of her stenosis, we will refer her on for evaluation with a spine surgeon. DOFFER documented in this encounter Plan of Treatment Upcoming Encounters Date Type Department Care Team (Late st Contact Info) Description 09/26/2023 10:30 AM LOOM DOFFER Office Visit Department of Orthopedic Surgery in [address] [phone] Amanda Scott APRN, C.N.P., D.N.P. [address] [place] [phone] Discharge Disposition: Home or Self Care Scheduled Referrals Name Type Priority Associated Diagnoses Order Schedule Orthopedic Surgery - Spine thoracolumbar surgical consult (clinic) Outpatient Referral Routine Radiculopathy Lumbar Expected: 09/20/2022 (Approximate), Expires: 12/19/2023 documented as of this encounter Visit Diagnoses Diagnosis Pain Low Back Unspecified- Primary Radiculopathy Lumbar documented in this encounter
--- OUTSIDE RECORDS SUMMARY | 2023-09-13 11:35 | XMS_ITS | Encounter Summary ---
Author Name Unknown Organization [facility] Address [address] [place] [address] Care Team Providers Care Party Plan Sales Unit Sales Leader Name Role Phone Unavailable Primary Care Provider Unavailabl e Reason for Referral * Outpatient (Routine) - Authorized Specialty Diagnoses / Procedures Referred By Contac t Referred To Contact Diagnoses Radiculopathy Lumbar Procedures [place] Lumbar Spine Interlaminar Epidural Injection Uriel Renner M.D. [address] [place] [address] [facility] Referral ID Status Reason Start Date Expiration Date V isits Requested Visits Authorized [id number] Authorized 09/28/2022 09/28/2023 1 1 F OPERATING ENGINEER Encounter Details Date Type Department Care Team (Late st Contact Info) Description 09/28/2022 Orders Only Department of Orthopedic Surgery in [place], [place] [address] [place] [address] Uriel Renner M.D. [address] [place] [phone] Radiculopathy Lumbar (Primary Dx) Social History Tobacco Use Types [...] Family Three times a week 04/11/2019 Attends Restorationist Services Not on file 04/11 Active Member [...] st Contact Info) Description 09/26/2023 10:30 AM CHIEF OPERATING ENGINEER Office Visit Department of Orthopedic Surgery in [address] [phone] Amanda Scott APRN, C.N.P., D.N.P. [address] [place] [address] Discharge Disposition: Home or Self Care documented as of this encounter Visit Diagnoses Diagnosis Radiculopathy Lumbar- Primary documented in this encounter
--- OUTSIDE RECORDS SUMMARY | 2023-09-13 11:35 | XMS_ITS | Encounter Summary ---
Author Name Unknown Organization [facility] Address [address] [place] [address] Care Team Providers Care Certified Court Interpreter Name Role Phone Unavailable Primary Care Provider Unavailabl e Reason for Visit * Outpatient (Routine) - Closed Specialty Diagnoses / Procedures Referred By Carley t Referred To Contact Orthopedic Surgery Diagnoses Radiculopathy Lumbar Uriel Renner M.D. [address] [place] [address] [facility] Referral ID Status Reason Start Date Expiration Date Visits Re quested Visits Authorized [id number] Closed 09/20/2022 09/20/2023 1 1 Encounter Details Date Type Department Care Team (Latest Contact Info) Description 10/24/2022 3:00 PM CDT Comprehensive Visit Department of Orthopedic Surgery in [place], [place] [address] [place] [phone] Joey Montenegro M.D. [address] [place] [phone] Radiculopathy Lumbar Social History Tobacco Use Types [...] as of this encounter Consult Notes * Joey Montenegro M.D. - 10/24/2022 3:00 PM CDT NAME: Heather Harrell : 1945 TODAY'S DATE: 10/24/22 CHIEF COMPLAINT/REASON FOR VISIT Back and left leg pain PAIN REPORTED:09/23 today, PAIN LOCATION: Back and left lower extremity pain PRO Scores: 10/24/2022 2:25 PM 10/24/2022 2:28 PM 10/24/2022 2:51 PM SpinePRO PROMIS-CAT: Sleep disturbance 56 (mild) PROMIS-CAT: Pain interference 54 (within normal limits) PROMIS-CAT: Ability to participate social roles 65 (within normal limits) PROMIS-CAT: Physical function 62 (within normal limits) PROMIS SHORT FORM (Pain Intensity): Pain rating (avg.) 5 LIZZIE:Oswestry Disability Index Raw Score: 9 Oswestry Disability Index (LIZZIE) Percent: 18 SUBJECTIVE HISTORY OF PRESENT ILLNESS Heather Harrell is a 76 y.o. female seen in consultation today at the request of Dr. Zurdo COBB for evaluation of the above. She notes she has had low back and left lower extremity pain with numbness. She did undergo a cyst aspiration and transforaminal steroid injection at L4-5 on September 30, 2022. She notes it took about 2 and half weeks but she has gotten significant relief of her symptoms. The pain is gone and she still has some residual numbness in the left thigh. She has also done Medrol Dosepak for her symptoms. Today she wanted to discuss her current spine issues and treatment options for the future. MEDICAL HISTORY Past Medical History: Diagnosis Date Constipation Diabetes Mellitus Type 2 Without Complication (HCC) Diverticulitis Gastroesophageal Reflux Disease NOS Hyperlipidemia Hypothyroidism Insomnia Pain Chest Atypical Polyp Colon Adenomatous 10/30/2013 Overview: Colonoscopy 10/2013 polyp repeat in 5 years Post Operative Nausea/Vomiting Sickness Motion Personal History SURGICAL HISTORY Past Surgical History: Procedure Laterality Date ARTHROPLASTY TOTAL REVERSE SHOULDER Right 06/18/2019 Procedure: ARTHROPLASTY TOTAL REVERSE SHOULDER; Surgeon: Uriel Renner M.D.; Location: [facility] CACF OR COLONOSCOPY 2017 ELBOW FRACTURE SURGERY ESOPHAGOGASTRODUODENOSCOPY 2017 Erosive gastropathy EYE SURGERY Repair of Retinal defect by laser photocoagulation EYE SURGERY Cataract removal HYSTERECTOMY 1984 JOINT REPLACEMENT left knee arthroplasty PARTIAL HYSTERECTOMY ROTATOR CUFF REPAIR Right ROTATOR CUFF REPAIR Left TOE SURGERY Right CURRENT MEDICATIONS Current Outpatient Medications: acetaminophen (TYLENOL) 500 mg tablet, Take 1 tablet (500 mg total) by mouth every 6 (six) hours asneeded for mild pain or score 1-3 of 10., Disp: , Rfl: aspirin 81 mg chewable tablet, Chew 81 mg daily., Disp: , Rfl: calcium carbonate (TUMS) 500 mg (200 mg calcium) chewable tablet, Chew as needed., Disp: , Rfl: estradioL (ESTRACE) 0.1 mg/g (0.01%) vaginal cream, Use nightly for 14 doses, then 2-3 nights each week. (Patient not taking: Reported on 07/05/2021 ), Disp: 42 g, Rfl: 3 gabapentin (NEURONTIN) 100 mg capsule, Take 1 capsule (100 mg total) by mouth 3 (three) times a dayas needed (Pain)., Disp: 90 capsule, Rfl: 1 levothyroxine (SYNTHROID, LEVOTHROID) 25 mcg tablet, Take 25 mcg by mouth daily., Disp: , Rfl: 3 magnesium oxide 500 mg tablet tablet, Take 1 tablet by mouth daily., Disp: , Rfl: metFORMIN XR (GLUCOPHAGE-XR) 500 mg 24 hr tablet, Take 1,000 mg by mouth 2 (two) times a day with meals. , Disp: , Rfl: 3 methylPREDNISolone (MEDROL DOSEPAK) 4 mg tablet, Take 1 tablet (4 mg total) by mouth See Admin Instructions. Use as directed by package instructions, Disp: 21 tablet, Rfl: 0 omega-3 fatty acids-fish oil 300-1,000 mg capsule, Take 500 mg by mouth daily., Disp: , Rfl: oxybutynin (DITROPAN) 5 mg tablet, Take 2.5 mg by mouth 2 (two) times a day., Disp: , Rfl: rosuvastatin (CRESTOR) 5 mg tablet, Take 5 mg by mouth at bedtime., Disp: , Rfl: 3 ALLERGIES/CONTRAINDICATIONS Allergies Allergen Reactions Atorvastatin Myalgia Codeine Nausea Only, Nausea And Vomiting and GI intolerance Ezetimibe Myalgia Pravastatin Other (see comments) Body aches FAMILY HISTORY The patient does have a family history of spine disorders. REVIEW OF SYSTEMS Constitutional: Positive for night sweats. Gastrointestinal: Positive for heartburn. The following systems were negative: Skin, Eyes, ENT, Respiratory, Cardiovascular, Genitourinary, Hematologic, Musculoskeletal, Neurological, Psychiatric OBJECTIVE PHYSICAL EXAMINATION General: Heather is a 76 y.o. female who is in no acute distress. Her BMI is There is no height or weight on file to calculate BMI.. Psych: She was found to be pleasant, alert and oriented x 3, and a good historian. Gait/Gross Motor: She is seated upon my entering the exam room and stands WITH/WITHOUT: without assistance. She is not using any gait aids or orthoses. She has a non-antalgic gait and moves with a neutral forward posture. Examination of her gait reveals her to have a normal heel, toe, and tandem gait. Romberg is normal. Spine: Inspection of the spine shows normal alignment withoutobvious rotation, rib hump or asymmetry. The shoulders and pelvis are level and there is not leg length discrepancy. Active range of motion of her spine shows Normal. Musculoskeletal: Examination of the upper extremities reveals full, painless range of motion of theshoulders, elbows, and wrists. Examination of the lower extremities reveals full, painless range ofmotion of the hips, knees, and ankles. Skin: Inspection of the skin is unremarkable. IMAGIN. Radiographs: EXAM: DX LUMBAR SPINE 4+ VIEWS IMPRESSION: Osteopenia. Advanced degenerative arthritis lumbar spine, with changes most marked in the facet joints. Thoracolumbar curve, convex to the left. Chronic compression fractures T12 and L1 vertebral bodies. Anterior subluxation L4 on L5. No instability on flexion and extension views. Deformity spinous process at L3 could be due to degenerative, PO or post- traumatic change. Arterial calcifications. 2. MRI: EXAM: MR LUMBAR SPINE WITHOUT AND WITH IV CONTRAST COMPARISON: None. FINDINGS: Posterior disc bulging and degenerative facet changes mildly narrow the spinal canal at L2-L3 and L3-L4 and severely narrow the spinal canal at L4-L5. A 1.6 cm synovial cyst extending superior and medial from the left L4-L5 facet joint (4/8; 7/14) results in moderate-advanced canal narrowing posterior to the L4 vertebral body. Multiple additional synovial cysts project posteriorly from the L4-L5 facet joints. Tiny medially directed right L4-L5 synovial cyst. Moderate bilateral L4-L5 neural foraminal narrowing. The synovial cyst compresses the medial aspect of the left L4 nerve root. Advanced degenerative facet changes. Slight retrolisthesis L1-L2 and L3-L4 and mild anterolisthesis L4-L5. Mild chronic compression of the superior endplates of the T12 and L1 vertebral bodies. Mild lumbar curve to the left with apex at L3. IMPRESSION: 1. Large left-sided synovial cyst extending superiorly from the left L4-L5 facet joint results in moderate-advanced spinal canal narrowing posterior to the L4 vertebral body and compresses the medial left L4 nerve roots. 2. Mild anterolisthesis, advanced degenerative facet changes, and unroofed posterior disc bulge result in advanced spinal canal narrowing at L4-L5. 3. CT: No dedicated spine CT ASSESSMENT/PLAN 1. Radiculopathy Lumbar - Orthopedic Surgery - Spine thoracolumbar surgical consult (clinic) #1 Radiculopathy Lumbar It was a pleasure meeting Mrs. Harrell in clinic today. She was referred by Dr. Renner for evaluation of her lumbar spinal stenosis. There was much discussion regarding her clinical presentation and results of her most recent L4-5 injection. It is very encouraging that she has gotten such good relief of her injection to this point. If she continues to get durable relief of her symptoms she could do these injections 1 to 2 times a year and avoid surgical intervention. When we see durable we would like to see her get at least 4 months relief of her symptoms. If her symptoms return we could certainly repeat the injection. If it does not last 4 months then she could consider surgical intervention. We are not recommending surgery at this time as she is doing very well. But surgery in the future would be a posterior lumbar decompression L4-5 this would be done as an outpatient surgery. She was given information on what surgery would look like and Dr. Montenegro's card to reach out to us if she would like to do a repeat injection in the future. PLAN: Continue to monitor the results of the injection if she gets 4-6 months relief of her symptoms withthe injection we could repeat it at that time. If she does not get durable relief of her symptoms we could consider a posterior lumbar decompression L4-5 as an outpatient surgery. All of her questions were answered and she is comfortable with the plan. She knows to contact the clinic if any questions should arise. Yesenia Urbina R.N. completed the above history, physical, imaging, impression and plan. The was discussed with Dr. Montenegro who was present and was in agreement. Kindly CC the following care team colleagues: PCP: No primary care provider on file. documented in this encounter Plan of Treatment Upcoming Encounters Date Type Department Care Team (Late st Contact Info) Description 09/26/2023 10:30 AM PLANTING MACHINE CREWMAN Office Visit Department of Orthopedic Surgery in [place] [phone] Amanda Scott APRN, C.N.P., D.N.P. [address] [place] [phone] Discharge Disposition: Home or Self Care documented as of this encounter Visit Diagnoses Diagnosis Radiculopathy Lumbar documented in this encounter
--- OUTSIDE RECORDS SUMMARY | 2023-09-13 11:35 | XMS_ITS | Encounter Summary ---
Author Name Unknown Organization [facility] Address [address] [place] [address] Care Team Providers Care Foster Care Social Worker Name Role Phone Unavailable Primary Care Provider Unavailabl e Reason for Visit * MRI/CAT/PET Scan (Routine) - Closed Specialty Diagnoses / Procedures Referred By Contac t Referred To Contact Radiology Diagnoses Pain Low Back Unspecified Procedures MR Lumbar Spine without and with IV Contrast MR Lumbar Spine without IV Contrast Amanda Scott APRN, C.N.P., D.N.P. [address] [place] [address] [facility] Region Referral ID Status Reason Start Date Expiration Date Visits Re quested Visits Authorized [id number] Closed 09/02/2022 09/02/2023 1 1 Encounter Details Date Type Department Care Team (Latest Contact Info) Description 09/16/2022 1:00 PM STATISTICAL METHODS PROFESSOR - 09/16/2022 11:59 PM STATISTICAL METHODS PROFESSOR Hospital Encounter Department of Radiology in [address] [phone] Amanda Scott APRN, C.N.P., D.N.P. [address] [place] [phone] Pain Low Back Unspecified Discharge Disposition: Home or Self Care Social [...] Family Three times a week 04/11/2019 Attends Yazidism Services Not on file 04/11 Active Member [...] st Contact Info) Description 09/26/2023 10:30 AM STATISTICAL METHODS PROFESSOR Office Visit Department of Orthopedic Surgery in [address] [phone] Amanda Scott APRN, C.N.P., D.N.P. [address] [place] [phone] Discharge Disposition: Home or Self Care documented as of this encounter Procedures Procedure Name Priority Date/Time Associated Diagnosis Comments MR LUMBAR SPINE WITHOUT AND WITH IV CONTRAST RAD - Routine (most inpatients and all outpatients) 09/16/2022 2:50 PM STATISTICAL METHODS PROFESSOR Pain Low Back Unspecified documented in this encounter Results * MR Lumbar Spine without and with IV Contrast (09/16/2022 2:50 PM STATISTICAL METHODS PROFESSOR) Anatomical Region Laterality Modality Lumbar Spine, Neuroradiology RST LOS, Neuroradiology ARZ LOS, Neuroradiology FLA LOS N/A Magnetic Resonance 09/16/2022 2:59 PM STATISTICAL METHODS PROFESSOR Impressions 09/16/2022 3:13 PM STATISTICAL METHODS PROFESSOR 1. Large left-sided synovial cyst extending superiorly from the left L4-L5 facet joint results in moderate-advanced spinal canal narrowing posterior to the L4 vertebral body and compresses the medial left L4 nerve roots. 2. Mild anterolisthesis, advanced degenerative facet changes, and unroofed posterior disc bulge result in advanced spinal canal narrowing at L4-L5. Narrative 09/16/2022 3:13 PM STATISTICAL METHODS PROFESSOR EXAM: MR LUMBAR SPINE WITHOUT AND WITH [...] to the left with apex at L3. Procedure Note Chely Lang M.D. - 09/16/2022 EXAM: MR LUMBAR SPINE WITHOUT AND WITH IV CONTRAST COMPARISON: None. FINDINGS: Posterior disc bulging and degenerative facet changes mildlynarrow the spinal canal at L2-L3 and L3-L4 and severely narrow the spinal canal at L4-L5. A 1.6 cm synovial cyst extending superior and medial from the left L4-Q2anqgj joint (4/8; 7/14) results in moderate-advanced canal narrowing posterior to the L4 vertebralbody. Multiple additional synovial cysts project posteriorly from the L4-L5 facet joints. Tinymedially directed right L4-L5 synovial cyst. Moderate bilateral L4-L5 neural foraminal narrowing. The synovial cystcompresses the medial aspect of the left L4 nerve root. Advanced degenerative facet changes. Slight retrolisthesis L1-L2 and L3-L4and mild anterolisthesis L4-L5. Mild chronic compression of the superior endplates of the T12 andL1 vertebral bodies. Mild lumbar curve to the left with apex at L3. IMPRESSION: 1. Large left-sided synovial cyst extending superiorly from the left L4-J2owctb joint results in moderate-advanced spinal canal narrowing posterior to the L4 vertebralbody and compresses the medial left L4 nerve roots. 2. Mild anterolisthesis, advanced degenerative facet changes, and unroofedposterior disc bulge result in advanced spinal canal narrowing at L4-L5. Amanda Scott APRN, C.N.P., D.N.P. IMG MRI PROCEDURES documented in this encounter Visit Diagnoses Diagnosis Pain Low Back Unspecified documented in this encounter Administered Medications Inactive Administered Medications - up to 3 most recent administrations Medication Order MAR Action Action Date Dose Rate Site gadobutrol injection 7.5 mL (GADAVIST) 7.5 mL, intravenous, Once in imaging, contrast, Starting on Mon09/16/22 at 1440, For 1 dose, Intrathecal doses greater than 0.25 mL not recommended. Given 09/16/2022 2:40 PM STATISTICAL METHODS PROFESSOR 7 mL documented in this encounter
--- OUTSIDE RECORDS SUMMARY | 2023-09-13 11:35 | XMS_ITS | Encounter Summary ---
Author Name Unknown Organization [facility] Address [address] [place] [address] Care Team Providers Care Internal Sales Engineer Name Role Phone Unavailable Primary Care Provider Unavailabl e Reason for Referral * Outpatient (Routine) - Closed Specialty Diagnoses / Procedures Referred By Contac t Referred To Contact Diagnoses Stenosis Spinal Procedures DX Lumbar Spine 4+ Views Tena Petersen APRN, C.N.P., D.N.P. [address] [place] [phone] [facility] Referral ID Status Reason Start Date Expiration Date Visits Re quested Visits Authorized [id number] Closed 09/22/2022 09/22/2023 1 1 Reason for Visit * Outpatient (Routine) - Closed Specialty Diagnoses / Procedures Referred By Contac t Referred To Contact Diagnoses Stenosis Spinal Procedures DX Lumbar Spine 4+ Views Tena Petersen APRN, C.N.P., D.N.P. [address] [place] [phone] [facility] Referral ID Status Reason Start Date Expiration Date Visits Re quested Visits Authorized [id number] Closed 09/22/2022 09/22/2023 1 1 Encounter Details Date Type Department Care Team (Latest Contact Info) Description 10/24/2022 1:58 PM CDT - 10/24/2022 11:59 PM CDT Hospital Encounter Department of Radiology, [facility], in [place], [place] [address] [place] [address] Tena Petersen APRN, C.N.P., D.N.P. [address] [place] [phone] Stenosis Spinal Discharge Disposition: Home or Self Care Social [...] Family Three times a week 04/11/2019 Attends Taoism Services Not on file 04/11 Active Member [...] st Contact Info) Description 09/26/2023 10:30 AM SENIOR BENEFITS SPECIALIST Office Visit Department of Orthopedic Surgery in [address] [phone] Amanda Scott APRN, C.N.P., D.N.P. [address] [place] [phone] Discharge Disposition: Home or Self Care documented as of this encounter Procedures Procedure Name Priority Date/Time Associated Diagnosis Comments DX LUMBAR SPINE 4+ VIEWS RAD - Routine (most inpatients and all outpatients) 10/24/2022 2:18 PM CDT Stenosis Spinal documented in this encounter Results * DX Lumbar Spine 4+ Views (10/24/2022 2:18 PM CDT) Anatomical Region Laterality Modality Lumbar Spine, Musculoskeleta l RST LOS, Neuroradiology ARZ LOS, Muskuloskeletal FLA LOS N/A Digital Radiography 10/24/2022 2:53 PM CDT Impressions 10/24/2022 2:55 PM CDT Osteopenia. Advanced degenerative arthritis lumbar spine, with changes most marked in the facet joints. Thoracolumbar curve, convex to the left. Chronic compression fractures T12 and L1 vertebral bodies. Anterior subluxation L4 on L5. No instability on flexion and extension views. Deformity spinous process at L3 could be due to degenerative, PO or post- traumatic change. Arterial calcifications. Narrative 10/24/2022 2:55 PM CDT EXAM: ??DX LUMBAR SPINE 4+ VIEWS Procedure Note Sintia Nguyen M.D. - 10/24/2022 EXAM: DX LUMBAR SPINE 4+ VIEWS IMPRESSION: Osteopenia. Advanced degenerative arthritis lumbar spine, with changesmost marked in the facet joints. Thoracolumbar curve, convex to the left. Chroniccompression fractures T12 and L1 vertebral bodies. Anterior subluxation L4 on L5. No instability on flexionand extension views. Deformity spinous process at L3 could be due to degenerative, PO orpost- traumatic change. Arterial calcifications. Tena Petersen APRN C.N.P., D.N.P. IMG DIAGNOSTIC IMAGING PROCEDURES documented in this encounter Visit Diagnoses Diagnosis Stenosis Spinal documented in this encounter
--- OUTSIDE RECORDS SUMMARY | 2023-09-13 11:35 | XMS_ITS | Encounter Summary ---
Author Name Unknown Organization [facility] Address [address] [place] [address] Care Team Providers Care Restaurant Crew Member Name Role Phone Unavailable Primary Care Provider Unavailabl e Reason for Referral * Outpatient (Routine) - Closed Specialty Diagnoses / Procedures Referred By Contac t Referred To Contact Diagnoses Stenosis Spinal Procedures DX Lumbar Spine 4+ Views Tena Petersen APRN, C.N.P., D.N.P. [address] [place] [phone] [facility] Referral ID Status Reason Start Date Expiration Date Visits Re quested Visits Authorized [id number] Closed 09/22/2022 09/22/2023 1 1 NTORY SPECIALIST Reason for Visit * Reason Onset Date Comments Pre-visit Testing Orders 09/22/2022 Encounter Details Date Type Department Care Team (Latest Contact Info) Description 09/22/2022 Clinical Communication Department of Orthopedic Surgery in [place], [place] [address] [place] [phone] Prescheduling, Provider Pre-visit Testing Orders Social History Tobacco Use Types Packs/Day Years [...] Family Three times a week 04/11/2019 Attends [employer] Services Not on file 04/11 Active Member [...] st Contact Info) Description 09/26/2023 10:30 AM INVENTORY SPECIALIST Office Visit Department of Orthopedic Surgery in [address] [phone] Amanda Scott APRN, C.N.P., D.N.P. [address] [place] [phone] Discharge Disposition: Home or Self Care documented as of this encounter Results * DX Lumbar Spine [...] orpost- traumatic change. Arterial calcifications. Tena Petersen APRN, C.N.P., D.N.P. [facility] PROCEDURES documented in this encounter Visit Diagnoses Diagnosis Stenosis Spinal- Primary Stenosis Spinal documented in this encounter
--- OUTSIDE RECORDS SUMMARY | 2023-09-13 11:35 | XMS_ITS | Encounter Summary ---
Author Name Unknown Organization [facility] Address [address] [place] [address] Care Team Providers Care Used Car Renovator Name Role Phone Unavailable Primary Care Provider Unavailabl e Reason for Referral * MRI/CAT/PET Scan (Routine) - Closed Specialty Diagnoses / Procedures Referred By Contac t Referred To Contact Radiology Diagnoses Radiculopathy Lumbosacral Procedures CT Lumbar Spine Transforaminal Epidural Injection Left Aureliano Hernandez P.A.-C., M.S. [address] [place] [phone] [facility] Referral ID Status Reason Start Date Expiration Date Visits Re quested Visits Authorized [id number] Closed 09/30/2022 09/30/2023 1 1 OR BEHAVIORAL SCIENTIST Encounter Details Date Type Department Care Team (Late st Contact Info) Description 09/30/2022 Orders Only Division of Pain Medicine in [place], [place] [address] [place] [phone] Aureliano Hernandez P.A.-C., M.S. [address] [place] [phone] Radiculopathy Lumbosacral (Primary Dx) Social History Tobacco Use Types [...] Family Three times a week 04/11/2019 Attends Shinto Services Not on file 04/11 Active Member [...] Contact Info) Description 09/26/2023 10:30 AM SENIOR BEHAVIORAL SCIENTIST Office Visit Department of Orthopedic Surgery in [address] [phone] Amanda Scott APRN, C.N.P., D.N.P. 701 [facility] [place]pherson [phone] Discharge Disposition: Home or Self Care documented as of this encounter Results * CT Lumbar Spine Transforaminal Epidural Injection Left (09/30/2022 12:58 PM SENIOR BEHAVIORAL SCIENTIST) Anatomical Region Laterality Modality Lumbar Spine, Neuroradiology RST LOS, Musculoskeletal RST LOS, Neuroradiology ARZ LOS, Procedure FLA LOS, Neuroradiology FLA LOS Left Computed Tomography, Compute d Tomography 09/30/2022 3:17 PM SENIOR BEHAVIORAL SCIENTIST Impressions 09/30/2022 3:28 PM SENIOR BEHAVIORAL SCIENTIST 1. Transforaminal epidural steroid injection. Left L4-5 2. Facet joint aspiration and injection. ??Left L4-5 NR Narrative 09/30/2022 3:28 PM SENIOR BEHAVIORAL SCIENTIST EXAM: CT LUMBAR SPINE TRANSFORAMINAL EPIDURAL INJECTION [...] Hernandez P.A.-C., M.S. IMG CT P ROCEDURES documented in this encounter Visit Diagnoses Diagnosis Radiculopathy Lumbosacral- Primary Radiculopathy Lumbosacral documented in this encounter
--- OUTSIDE RECORDS SUMMARY | 2023-09-13 11:35 | XMS_ITS | Encounter Summary ---
Author Name Unknown Organization [facility] Address [address] [place] [address] Care Team Providers Care Cutter Banana Room Name Role Phone Unavailable Primary Care Provider Unavailabl e Reason for Visit * Reason Onset Date Comments EXTERNAL REFERRAL 09/28/2022 ORTHO Encounter Details Date Type Department Care Team (Latest Contact Info) Description 09/28/2022 Clinical Communication Department of Orthopedic Surgery in [place], [place] [address] [place] [phone] Uriel Renner M.D. 701 [place] [phone] EXTERNAL REFERRAL (ORTHO ) Social History Tobacco Use Types Packs/Day [...] Family Three times a week 04/11/2019 Attends Mosque Services Not on file 04/11 Active Member [...] Telephone Encounter - Jen Valencia L.P.N. - 09/28/2022 3:06 PM RIPPLER Please contact patient to schedule L L 3-4 ILESI injection with L 4-5 cyst aspiration in [place]. LER documented in this encounter Plan of Treatment Upcoming Encounters Date Type Department Care Team (Late st Contact Info) Description 09/26/2023 10:30 AM RIPPLER Office Visit Department of Orthopedic Surgery in [address] [phone] Amanda Scott APRN, C.N.P., D.N.P. [address] [place] [phone] Discharge Disposition: Home or Self Care documented as of this encounter Visit Diagnoses Not on filedocumented in this encounter
--- OUTSIDE RECORDS SUMMARY | 2023-09-13 11:35 | XMS_ITS | Encounter Summary ---
Author Name Unknown Organization [facility] Address [address] [place] [address] Care Team Providers Care Fabrics And Material Cutter Name Role Phone Unavailable Primary Care Provider Unavailabl e Reason for Referral * MRI/CAT/PET Scan (Routine) - Closed Specialty Diagnoses / Procedures Referred By Contac t Referred To Contact Radiology Diagnoses Radiculopathy Lumbosacral Procedures CT Facet Synovial Cyst Aspiration or Puncture or Injection Bilateral Aureliano Hernandez P.A.-C., M.S. [address] [place] [phone] [facility] Referral ID Status Reason Start Date Expiration Date Visits Re quested Visits Authorized [id number] Closed 09/30/2022 09/30/2023 1 1 O NEWS EDITOR Encounter Details Date Type Department Care Team (Latest Contact Info) Description 09/30/2022 10:00 AM VIDEO NEWS EDITOR Comprehensive Visit Division of Pain Medicine in [place], [place] [address] [place] [phone] Aureliano Hernandez P.A.-C., M.S. [address] [place] [phone] Radiculopathy Lumbosacral (Primary Dx); Pain Low Back Unspecified Social History Tobacco Use Types Packs/Day Years [...] Family Three times a week 04/11/2019 Attends Anabaptism Services Not on file 04/11 Active Member [...] Sign Reading Time Taken Comments Blood Pressure 156/76 09/30/2022 9:46 AM VIDEO NEWS EDITOR Pulse 68 09/30/2022 9:46 AM VIDEO NEWS EDITOR Temperature - - Respiratory Rate - - Oxygen Saturation - - Inhaled Oxygen Concentration - - Weight 62.7 kg (138 lb 3.7 oz) 09/30/2022 9:46 A M VIDEO NEWS EDITOR Height 164.5 cm (5' 4.76) 09/30/2022 9:46 AM CS T Body Mass Index 23.17 09/30/2022 9:46 AM VIDEO NEWS EDITOR documented in this encounter Progress Notes * Aureliano Hernandez P.A.-C., M.S. - 09/30/2022 10:00 AM CST Mrs. Harrell is a 76-year-old female who presents to the [facility] with expectations to receivean injection for her pain. After a close review of her symptoms and imaging, it would be best to schedule in Radiology so CT-guidance could be used. Her synovial cyst is large and in an area that we cannot access safely. No charge for the visit. O NEWS EDITOR documented in this encounter Plan of Treatment Upcoming Encounters Date Type Department Care Team (Late st Contact Info) Description 09/26/2023 10:30 AM VIDEO NEWS EDITOR Office Visit Department of Orthopedic Surgery in [address] [phone] Amanda Scott APRN, C.N.P., D.N.P. [address] [place] [phone] Discharge Disposition: Home or Self Care documented as of this encounter Results * CT Facet Synovial Cyst Aspiration or Puncture or Injection Bilateral (09/30/2022 12:58 PM VIDEO NEWS EDITOR) Anatomical Region Laterality Modality Lumbar Spine, Musculoskeleta l RST LOS, Neuroradiology ARZ LOS, Procedure FLA LOS, Neuroradiology FLA LOS Bilateral Computed Tomography, Compu jonathan Tomography 09/30/2022 3:17 PM VIDEO NEWS EDITOR Impressions 09/30/2022 3:28 PM VIDEO NEWS EDITOR 1. Transforaminal epidural steroid injection. Left L4-5 2. Facet joint aspiration and injection. ??Left L4-5 NR Narrative 09/30/2022 3:28 PM VIDEO NEWS EDITOR EXAM: CT LUMBAR SPINE TRANSFORAMINAL EPIDURAL INJECTION [...] encounter Visit Diagnoses Diagnosis Radiculopathy Lumbosacral- Primary Pain Low Back Unspecified Radiculopathy Lumbosacral documented in this encounter
--- OUTSIDE RECORDS SUMMARY | 2023-09-13 11:36 | XMS_ITS | Encounter Summary ---
Author Name Unknown Organization [facility] Address [address] [place] [address] Care Team Providers Care Heavy Coil Winder Name Role Phone Unavailable Primary Care Provider Unavailabl e Reason for Visit * Reason Comments Med Refill Encounter Details Date Type Department Care Team (Late st Contact Info) Description 09/14/2022 Refill Department of Orthopedic Surgery in [address] [phone] Amanda Scott APRN, C.N.P., D.N.P. [address] [place] [phone] Med Refill Social History Tobacco Use Types Packs/Day Years [...] Family Three times a week 04/11/2019 Attends Zoroastrianism Services Not on file 04/11 Active Member [...] st Contact Info) Description 09/26/2023 10:30 AM HOTEL ADMINISTRATIVE ASSISTANT Office Visit Department of Orthopedic Surgery in [address] [phone] Amanda Scott APRN, C.N.P., D.N.P. [address] [place] [phone] Discharge Disposition: Home or Self Care documented as of this encounter Visit Diagnoses Not on filedocumented in this encounter
--- OUTSIDE RECORDS SUMMARY | 2023-09-13 11:36 | XMS_ITS | Encounter Summary ---
Author Name Unknown Organization [facility] Address [address] [place] [address]. [place] [address] Care Team Providers Care Electronic Organ Technician Name Role Phone No Ref-Primary, Physician Primary Care Provider Reason for Visit * Reason Onset Date Comments Appointment 07/07/2020 Appointment for hematuria and chronic cystitis Encounter Details Date Type Department Care Team ([facility] st Contact Info) Description 07/07/2020 [facility] [address] [place] [phone] None Appointment (Appointment for hematuria and chronic cystitis) Social History Tobacco Use Types Packs/Day Years Used Date Smoking Tobacco: Former Smokeless Tobacco: Never Comments: Alcohol Use Standard Drinks/Week Comments Yes 0 (1 standard drink = 0.6 oz pur e alcohol) occasionally Sex and Gender Information Value Date Recorded Sex Assigned at Not on file Gender Identity Not on file Sexual Orientation Not on file documented as of this encounter Miscellaneous Notes * Telephone Encounter - Saul Gamez - 07/07/2020 2:39 PM CST [facility] Call Center Phone Message May a detailed message be left on voicemail: yes Reason for Call: Other: Pt being referred [facility] for an appointment in [place] for hematuria and chronic cystitis. Per guidelines, clinic review for hematuria. The referral will be faxed over. Please give pt a call to discuss scheduling an appointment. Action Taken: Message routed to: [facility] urology Travel Screening: Not Applicable RVER HELPER documented in this encounter Plan of Treatment Not on file documented as of this encounter Visit Diagnoses Not on filedocumented in this encounter Care Teams Electronic Organ Technician Relationship Specialty Start Date End Date No Ref-Primary, Physician PCP - General 03/08/18 documented as of this encounter
--- OUTSIDE RECORDS SUMMARY | 2023-09-13 11:36 | XMS_ITS | Encounter Summary ---
Author Name Unknown Organization [facility] Address [address] [place] [address] Care Team Providers Care Medical Assisting Program Director Name Role Phone Unavailable Primary Care Provider Unavailabl e Encounter Details Date Type Department Care Team (Late st Contact Info) Description 09/14/2022 Clinical Communication Department of Orthopedic Surgery in [place], [place] [address] [place] [phone] Amanda Scott APRN, C.N.P., D.N.P. [address] [place] [phone] Social History Tobacco Use Types Packs/Day Years [...] encounter Miscellaneous Notes * Telephone Encounter - Hood Clark R.N. - 09/15/2022 10:14 AM CEMENT FINISHING SUPERVISOR Left a VM to call back NT FINISHING SUPERVISOR * Telephone Encounter - Candice Lynch APRN, C.N.P., D.N.P. - 09/15/2022 9:44 AM CST After discussing with Amanda, will want to hold off on repeat Medrol DosePak as this isn't a medication to use repeatedly or custodial. We can consider another anti-inflammatory at some point but would really like to get her MRI results first. Thanks. NT FINISHING SUPERVISOR * Telephone Encounter - Candice Lynch APRN, C.N.P., D.N.P. - 09/14/2022 1:53 PM CST Lets see what her MRI shows in a few days before we repeat Medrol DosePak. Last Medrol DosePak 09/02/22. Will discuss with Amanda though to get her thoughts. NT FINISHING SUPERVISOR documented in this encounter Plan of Treatment Upcoming Encounters Date Type Department Care Team (Late st Contact Info) Description 09/26/2023 10:30 AM CEMENT FINISHING SUPERVISOR Office Visit Department of Orthopedic Surgery in [address] [phone] Amanda Scott APRN, Edy.N.P., D.N.P. [address] [place] [phone] Discharge Disposition: Home or Self Care documented as of this encounter Visit Diagnoses Not on filedocumented in this encounter
--- OUTSIDE RECORDS SUMMARY | 2023-09-13 11:36 | XMS_ITS | Encounter Summary ---
Author Name Unknown Organization [facility] Address [address] [place] [address] Care Team Providers Care Manual Plate Filler Name Role Phone Unavailable Primary Care Provider Unavailabl e Reason for Referral * Outpatient (Routine) - Closed Specialty Diagnoses / Procedures Referred By Carley t Referred To Contact Diagnoses Pain Knee Left Arthroplasty Total Knee Replacement Status Post Left Procedures DX Knee Left 3 Views Amanda Scott APRN, C.N.P., D.N.P. [address] [place] [phone] [facility] Region Referral ID Status Reason Start Date Expiration Date Visits Re quested Visits Authorized [id number] Closed 09/07/2022 09/07/2023 1 1 SALES CONSULTANT Reason for Visit * Outpatient (Routine) - Closed Specialty Diagnoses / Procedures Referred By Carley t Referred To Contact Diagnoses Pain Knee Left Arthroplasty Total Knee Replacement Status Post Left Procedures DX Knee Left 3 Views Amanda Scott APRN, C.N.P., D.N.P. [address] [place] [phone] [facility] Region Referral ID Status Reason Start Date Expiration Date Visits Re quested Visits Authorized [id number] Closed 09/07/2022 09/07/2023 1 1 Encounter Details Date Type Department Care Team (Latest Contact Info) Description 09/16/2022 12:59 PM TELESALES CONSULTANT Hospital Encounter Department of Radiology in [address] [place] [phone] Amanda Scott APRN, C.N.P., D.N.P. [address] [place] [phone] Pain Knee Left; Arthroplasty Total Knee Replacement Status Post Left Discharge Disposition: Home or Self Care Social [...] st Contact Info) Description 09/26/2023 10:30 AM TELESALES CONSULTANT Office Visit Department of Orthopedic Surgery in [address] [phone] Amanda Scott APRN, C.N.P., D.N.P. [address] [place] [phone] Discharge Disposition: Home or Self Care documented as of this encounter Procedures Procedure Name Priority Date/Time Associated Diagnosis Comments DX KNEE LEFT 3 VIEWS RAD - Routine (most inpatients and all outpatients) 09/16/2022 1:16 PM TELESALES CONSULTANT Pain Knee Left Arthroplasty Total Knee Replacement Status Post Left documented in this encounter Results * DX Knee Left 3 Views (09/16/2022 1:16 PM TELESALES CONSULTANT) Anatomical Region Laterality Modality Lower Extremity, Knee, Muscu loskeletal RST LOS, Musculoskeletal ARZ LOS, Muskuloskeletal FLA LOS Left Digit al Radiography 09/16/2022 2:41 PM TELESALES CONSULTANT Impressions 09/16/2022 2:42 PM TELESALES CONSULTANT Left TKA. No evidence of loosening. Arterial calcifications. Narrative 09/16/2022 2:42 PM TELESALES CONSULTANT EXAM: ??DX KNEE LEFT 3 VIEWS Procedure Note Ministerio Ruiz M.D. - 09/16/2022 EXAM: DX KNEE LEFT 3 VIEWS IMPRESSION: Left TKA. No evidence of loosening. Arterial calcifications. Amanda Scott APRN, C.N.P., D.N.P. IMG [facility]AG[facility] PROCEDURES documented in this encounter Visit Diagnoses Diagnosis Pain Knee Left Arthroplasty Total Knee Replacement Status Post Left documented in this encounter
--- OUTSIDE RECORDS SUMMARY | 2023-09-13 11:36 | XMS_ITS | Referral Summary ---
Author Name Unknown Organization [facility] Address [address] [place] [address] Care Team Providers Care Identity Access Management Architect Name Role Phone No Ref-Primary, Physician Primary Care Provider Allergies Active Allergy Reactions Criticality Noted Date Comments Codeine GI Disturbance 06/24/2014 Statins 03/08/2018 Medications Medication Sig Dispensed Refills Start Date End Date Status aspirin 81 MG tablet Take 1 tablet by mouth daily. 7 tablet 0 10/07/2011 Active Additional Information Patient taking differently:81 mg OralPRN, Reported on 06/24/2014 estradiol (ESTRACE) 0.5 MG tablet Take 0.5 mg by mouth daily Unknown mg 0 Active Red Yeast Rice 600 MG TABS Take 600 mg by mouth daily 0 Active calcium carbonate (TUMS) 500 MG chewable tablet Take 1 chew tab by mouth as needed for heartburn 0 Active LEVOTHYROXINE SODIUM PO Take 25 mcg by mouth 0 Acti ve Plant Sterols and Stanols (CHOLEST OFF PO) Take 1 tablet by mouth daily 0 Active [place]-3 Fatty Acids (OMEGA-3 FISH OIL PO) Take 1 g by mouth 0 Active IBUPROFEN PO 0 Active Acetaminophen (TYLENOL PO) 0 Active GABAPENTIN PO Take 200 mg by mouth At Bedtime 0 Active METFORMIN HCL PO Take 500 mg by mouth daily (with breakfast) 0 Active Active Problems Problem Noted Date Diagnosed Date Hyperlipidemia Chest pain Social History Tobacco Use Types Packs/Day Years Used Date Smoking Tobacco: Former Smokeless Tobacco: Never Comments: Alcohol Use Standard Drinks/Week Comments Yes 0 (1 standard drink = 0.6 oz pur e alcohol) occasionally Adolescent Education Answer Date Record ed Getting School Help Needed Not on file 05/20 Sex and Gender Information Value Date Recorded Sex Assigned at Not on file Gender Identity Not on file Sexual Orientation Not on file Last Filed Vital Signs Vital Sign Reading Time Taken Comments Blood Pressure 104/60 03/08/2018 10:15 AM CDT Pulse 66 06/24/2014 11:08 AM FARM OR RANCH ANIMAL CARETAKER Temperature 36.3 ??C (97.3 ??F) 03/08/2018 8:00 AM CD T Respiratory Rate 20 03/08/2018 10:15 AM CDT Oxygen Saturation 98% 03/08/2018 10:15 AM CDT Inhaled Oxygen Concentration - - Weight 64.5 kg (142 lb 2 oz) 03/08/2018 8:00 AM CDT Height 163.8 cm (5' 4.5) 03/08/2018 8:00 AM CDT Body Mass Index 24.02 03/08/2018 8:00 AM CDT Plan of Treatment Not on file Medical Devices Implanted Type Area Mdm Developer Device Identifier Shelf Expiration Date Model / Serial / Lot Eye Imp Iol Moe 1-Piece Tecnis Toric +22.0 [id number] Implanted:Qty : 1 on 03/08/2018 by Pankaj Quiñones MD at [employer] Lens/Eye Implant Right: Eye [employer] 06/17/2021 [id number] / [id number] / K Wire .062 Implanted:Qty : 1 on 07/03/2014 by Javad Ray MD at [facility] Right: Foot Depuy / / [id number] Care Teams Identity Access Management Architect Relationship Specialty Start Date End Date No Ref-Primary, Physician PCP - General 03/08/18
--- OUTSIDE RECORDS SUMMARY | 2023-09-13 11:36 | XMS_ITS | Clinical Summary ---
Author Name Unknown Organization [facility] Address [address] [place] [address] Care Team Providers Care Sports Intern Name Role Phone No Ref-Primary, Physician Primary [...] 1 tablet by mouth daily 0 Active [place]-3 Fatty Acids (OMEGA-3 FISH OIL PO) Take [...] AM CDT Pulse 66 06/24/2014 11:08 AM TURBINE ENGINEER Temperature 36.3 ??C (97.3 ??F) 03/08/2018 8:00 [...] on file Medical Devices Implanted Type Area Culturist Device Identifier Shelf Expiration Date Model / Serial / Lot Eye Imp Iol Moe 1-Piece Tecnis Toric +22.0 [id number] Implanted:Qty : 1 on 03/08/2018 by Pankaj Quiñones MD at [facility] Lens/Eye Implant Right: Eye [employer] 06/17/2021 [id number] / [id number] / K Wire .062 Implanted:Qty : 1 on 07/03/2014 by Javad Ray MD at [facility] Right: Foot Depuy / / [id number] Care Teams Sports Intern Relationship Specialty Start Date End Date No Ref-Primary, Physician PCP - General 03/08/18
--- OUTSIDE RECORDS SUMMARY | 2023-09-13 11:36 | XMS_ITS | Encounter Summary ---
Author Name Unknown Organization [facility] Address [address] [place] [address] Care Team Providers Care Sports Physician Name Role Phone Unavailable Primary Care Provider Unavailabl e Reason for Referral * Outpatient (Routine) - Closed Specialty Diagnoses / Procedures Referred By Carley shields Referred To Contact Diagnoses Pain Knee Left Arthroplasty Total Knee Replacement Status Post Left Procedures DX Knee Left 3 Views Amanda Scott APRN, C.N.P., D.N.P. [address] [place] [phone] [facility] Region Referral ID Status Reason Start Date Expiration Date Visits Re quested Visits Authorized [id number] Closed 09/07/2022 09/07/2023 1 1 NURSE Encounter Details Date Type Department Care Team (Late st Contact Info) Description 09/07/2022 Orders Only Department of Orthopedic Surgery in [address] [phone] Amanda Scott APRN, C.N.P., D.N.P. [address] [place] [phone] Pain Knee Left (Primary Dx); Arthroplasty Total Knee Replacement Status Post Left Social History Tobacco Use Types Packs/Day Years [...] Family Three times a week 04/11/2019 Attends Religion Services Not on file 04/11 Active Member [...] st Contact Info) Description 09/26/2023 10:30 AM CLIN NURSE Office Visit Department of Orthopedic Surgery in [address] [phone] Amanda Scott APRN, RosalbaN.Eli., D.N.P. 701 [facility] [place] [phone] Discharge Disposition: Home or Self Care documented as of this encounter Results * DX Knee Left 3 Views (09/16/2022 1:16 PM CLIN NURSE) Anatomical Region Laterality Modality Lower Extremity, Knee, Muscu loskeletal RST LOS, Musculoskeletal ARZ LOS, Muskuloskeletal FLA LOS Left Digit al Radiography 09/16/2022 2:41 PM CLIN NURSE Impressions 09/16/2022 2:42 PM CLIN NURSE Left TKA. No evidence of loosening. Arterial calcifications. Narrative 09/16/2022 2:42 PM CLIN NURSE EXAM: ??DX KNEE LEFT 3 VIEWS Procedure Note Ministerio Ruiz M.D. - 09/16/2022 EXAM: DX KNEE LEFT 3 VIEWS IMPRESSION: Left TKA. No evidence of loosening. Arterial calcifications. Rosalba Castano APRNNIvanna., D.N.P. IMG [facility] IMAGING PROCEDURES documented in this encounter Visit Diagnoses Diagnosis Pain Knee Left- Primary Arthroplasty Total Knee Replacement Status Post Left Pain Knee Left Arthroplasty Total Knee Replacement Status Post Left documented in this encounter
== END 2023-09-11 09:23 | disposition home or self-care (01) ==
LOC: NFLDREF 09-13 11:22
PROVIDERS: PCP Family Medicine; Referring Provider Family Medicine; Visit Provider Family Medicine
DX: E11.9 Type 2 diabetes mellitus without complications (principal); E55.9 Vitamin D deficiency, unspecified; R03.0 Elevated blood-pressure reading, without diagnosis of hypertension; R53.83 Other fatigue
CPT/HCPCS: 80053; 82306

== ENCOUNTER 2024-02-09 13:42 | Outpatient (CLI) | payer MEDICARE, BC, SELFPAY ==
--- OUTSIDE RECORDS SUMMARY | 2024-02-11 04:13 | XMS_ITS | Clinical Summary ---
Author Organization [facility] Address [place], [place] [address] Care Team Providers Care Internal Controls Specialist Name Role Phone Vanessa García MD Primary Care Provider + Allergies Active Allergy Reactions Criticality Noted Date Comments Atorvastatin Myalgia 04/13/2017 Codeine Nausea And Vomiting 03/22/2011 Ezetimibe Myalgia 04/13/2017 Rosuvastatin Myalgia 04/13/2017 Medications Medication Sig Dispensed Refills Start Date End Date Status levothyroxine (SYNTHROID) 25 mcg tablet Take 25 mcg by mouth before breakfast. Active FLUTICASONE PROPIONATE (FLONASE NASL) Inhale 2 Sprays in the nostril(s) once daily if needed. Active metFORMIN (GLUCOPHAGE XR) 500 mg Extended-Release tablet Take 1,000 mg by mouth 2 times daily with meals. Active Cholecalciferol, Vitamin D3, 2,000 unit tablet Take 2,000 Units by mouth once daily. Active acetaminophen (TYLENOL) 325 mg tabletIndications:Pr imary osteoarthritis of left knee Take 1-2 tablets by mouth every 6 hours if needed. Max acetaminophen dose: 4000mg in 24 hrs. 100 tablet 04/21/2017 Active ibuprofen (ADVIL; MOTRIN) 600 mg tabletIndications:Pr imary osteoarthritis of left knee Take 1 tablet by mouth every 6 hours if needed for Pain (Take with food). Maximum of 3200 mg in 24 hours. 40 tablet 04/21/2017 Active aspirin chewable 81 mg chewable tablet Take 1 tablet by mouth once daily with a meal. 0 03/28/2018 Active rosuvastatin (CRESTOR) 5 mg tabletIndications:Dy slipidemia Take 1 tablet by mouth at bedtime. Further refills to come from primary care provider. 90 tablet 03/26/2020 Active Magnesium Oxide 500 mg tab Daily Active mirabegron EXTENDED-release (MYRBETRIQ) 50 mg tabletIndications:Ov [...] by mouth three times daily. 270 Capsule 05/29/2023 Active Active Problems Problem Noted Date Diagnosed Date Dyslipidemia 04/12/2019 s/p left total knee arthroplasty 04/20/17 04/24/20 Type 2 diabetes mellitus 04/20/2017 Hypothyroid 04/20/2017 [...] Comments Blood Pressure 107/65 09/09/2020 11:02 AM SENIOR TECHNICAL EDITOR Pulse 77 09/09/2020 11:02 AM SENIOR TECHNICAL EDITOR Temperature 36.4 ??C (97.5 ??F) 06/24/2020 2:38 PM CS T Respiratory Rate 16 04/22/2017 7:38 AM CDT Oxygen Saturation 98% 09/09/2020 11:02 AM SENIOR TECHNICAL EDITOR Inhaled Oxygen Concentration - - Weight 68.1 kg (150 lb 1.6 oz) 09/09/2020 11:02 AM SENIOR TECHNICAL EDITOR Height 162.6 cm (5' 4.02) 04/18/2018 11:26 AM C DT Body Mass Index 25.75 04/18/2018 11:26 AM CDT Plan of Treatment Health Maintenance Due Date Last Done Comments Depression screening for age 12+ 1957 Hepatitis [...] 03/29/2017 Tetanus booster 03/22/2021 03/22/2011, 0804/2011, 07/05/1999 COVID-19 vaccine series ( season) 2023 Influenza for age 65+ 04/14/2024 04/29/2014 Tdap Completed 03/22/2011 Medical Devices Implanted Type Area Attending Anesthesiologist Device Identifier Shelf Expiration Date Model / Serial / Lot Patella Sz32 Miriam Ii Rnd Myleswang Avery - [id number] Implanted:Qty: 1 on 04/20/2017 by Barrie Contreras MD at [facility] Total Joint Left: Patella [employer] 01/11/2027 [id number] # / / [id number] Lens Iol 22 Tecnis - [id number] Implanted:Qty: 1 on 10/13/2015 by Evan Walker MD at [facility] Left: Eye [employer] 07/07/2020 [id number]# / [id number] / Cmnt Bone Simplex Atb Tobramycin - [id number] Implanted:Qty: 1 on 04/20/2017 by Barrie Contreras MD at [facility] Left: Knee [employer] 08/13/2018 6197-9-00 1# / / [id number] Cmnt Bone Simplex Atb Tobramycin - [id number] Implanted:Qty: 1 on 04/20/2017 by Barrie Contreras MD at [facility] Left: Knee [employer] 08/13/2018 6197-9-00 1# / / [id number] Baseplate Tib Lt Sz2 Miriam Ii Titnm Non Pors - [id number] Implanted:Qty: 1 on 04/20/2017 by Barrie Contreras MD at [facility] Left: Tibia [employer] 03/04/2027 71- # / / [id number] Fem Lt Sz4n Legion Narrow Croxin - [id number] Implanted:Qty: 1 on 04/20/2017 by Barrie Contreras MD at [facility] Left: Femur [employer] 12/05/2026 [id number]# / / [id number] Insert Knee Sz1-2 12mm Legion Cruc Ret High Flex Xlpe - [id number] Implanted:Qty: 1 on 04/20/2017 by Barrie Contreras MD at [facility] Left: Tibia [employer] 07/13/2024 [id number] / / [id number] Advance Directives * Full Code (Latest Code Status on File) Date Activated Date Inactivated Comments 04/20/2017 3:12 PM 04/22/2017 1:24 PM * Full Code Date Activated Date Inactivated Comments 04/20/2017 9:48 AM 04/20/2017 3:08 PM * Full Code Date Activated Date Inactivated Comments 04/18/2017 11:34 AM 04/18/2017 4:07 PM * Full Code Date Activated Date Inactivated Comments 10/13/2015 8:05 AM 10/13/2015 12:35 PM * Full Code Date Activated Date Inactivated Comments 02/18/2015 12:27 PM 02/18/2015 3:02 PM Care Teams Internal Controls Specialist Relationship Specialty Start Date End Date Vanessa García MD [address] [place] [address] PCP - General Family Practice 10/07/15
--- OUTSIDE RECORDS SUMMARY | 2024-02-11 04:13 | XMS_ITS | Encounter Summary ---
Author Organization [facility] Address [address] [place] [address] Care Team Providers Care Bar Captain Name Role Phone No Ref-Primary, Physician Primary Care Provider Reason for Visit * Reason Onset Date Comments Appointment 07/07/2020 Appointment for hematuria and chronic cystitis Encounter Details Date Type Department Care Team ([facility] st Contact Info) Description 07/07/2020 [facility] [address] [place] [address] None Appointment (Appointment for hematuria [...] Saul Gamez - 07/07/2020 2:39 PM CST [facility] Call Center Phone Message May a detailed message be left on voicemail: yes Reason for Call: Other: Pt being referred from the [facility] for an appointment in [place] for hematuria and chronic cystitis. Per guidelines, clinic review for hematuria. The referral will be faxed over. Please give pt a call to discuss scheduling an appointment. Action Taken: Message routed to: [facility] urology Travel Screening: Not Applicable SIZER documented in this encounter Plan of Treatment Not on file documented as of this encounter Visit Diagnoses Not on filedocumented in this encounter Care Teams Bar Captain Relationship Specialty Start Date End Date No Ref-Primary, Physician PCP - General 03/08/18 documented as of this encounter
--- OUTSIDE RECORDS SUMMARY | 2024-02-11 04:13 | XMS_ITS | Referral Summary ---
Author Organization [facility] Address [address] [place] [address] Care Team Providers Care Fundraising Coordinator Name Role Phone None Reported, Pcp Primary Care Provider Unavail able Source Comments Patient records contain information from all sites at [facility]. For routine questions regarding patient records, call [phone] during business hours, M-F 8:00 AM - 5:00 PM Central Time. Record requests for emergency care only can be directed to [phone] at any time.[facility] Encounters Date Type Department Care Team Description 11/14/2023 Clinical Communication Department of Spine in [place], [place] [address] [place] [phone] Candice Bhatti, RJudithN. Follow-up ([facility] is calling to complete your 1-year follow-up PROMIS-CAT questionnaires. You will receive questionnaires at different timepoints in the future. You can complete the current questionnaires in your patient portal and no return call is necessary. If you have additional questions about this survey, please contact your care provider directly. Thank you!//) from Last 3 Months Allergies Active Allergy [...] total) by mouth every 6 (six) hours. 07/05/2023 Active aspirin 81 mg chewable tablet Chew 1 tablet (81 mg total) 2 (two) times a day. 90 tablet 07/05/2023 Active metFORMIN XR (GLUCOPHAGE-XR) 500 mg 24 hr tablet Take 1,000 mg by mouth 2 (two) times a day. Active Active Problems Problem Noted Date Diagnosed Date History Of Falling 08/24/2023 Pain Knee Right 08/22/2023 Arthroplasty Total Shoulder Replacement Status P ost Right 06/18/2019 Pain Chest 04/08/2019 Pain Shoulder Right 01/15/2019 Overview: Added automatically from request for surgery [id number] Primary Osteoarthritis Shoulder Right 01/15/2019 Overview: Added automatically from request for surgery [id number] Encounter For Other Orthopedic Aftercare 017 Nevus [...] Years Used Date Smoking Tobacco: Former Cigarettes Smokeless Tobacco: Never Tobacco Cessation:Counseling Given: Not Answered Alcohol Use Standard Drinks/Week Comments Not Currently 0 (1 standard drink = 0.6 oz pur e alcohol) [facility] Utilities Answer Date Recorded In the past 12 months has th e electric, gas, oil, or water company threatened to shut off services in your home? No 09/19/2023 Social Connection and Isolat ion Panel [NHANES] Answer Date Recorded Frequency of Communication w ith Friends and Family More than three times a week 04/11/2019 Frequency of Social Gatherin gs with Friends and Family Three times a week 04/11/2019 Attends [employer] Services Not on file 04/11 Active Member [...] Exercise Vital Sign Answer Date Recorde d On average, how many days pe r week do you engage in moderate to strenuous exercise (like a brisk walk)? 4 days 09/19/2023 On average, how many minutes do you engage in exercise at this level? 60 min 09/19/2023 Hunger Vital Sign Answer Date Recorded Within the past 12 months, y ou worried that your food would run out before you got the money to buy more. Never true 09/19/19 24 Within the past 12 months, t he food you bought just didn't last and you didn't have money to get more. Never true 09/19/2023 PRAPARE - Transportation Answer Date Re corded In the past 12 months, has l ack of transportation kept you from medical appointments or from getting medications? No 01/2024 In the past 12 months, has l ack of transportation kept you from meetings, work, or from getting things needed for daily living? No 09/19/2023 Nutrition Answer Date Recorded Nutrition: EVOO Fat Source Unknown 09/19 On average, how many serving s of fruits and vegetables do you eat per day (serving size is equal to 1 cup or approximately the size of a tennis ball)? 3-5 09/19/2023 Dental Answer Date Recorded Dental: Regular Dentist Yes 09/19/19 Employment Answer Date Recorded Employment status Retired 09/19/2023 Housing Stability Answer Date Recorded What is your living situation today? I have a [facility] place to live 09/19/2023 Sex and Gender Information Value Date Recorded Sex Assigned at Not on file Gender Identity Not on file Sexual Orientation Straight 10/24/2022 2: 54 PM CDT Last Filed Vital Signs Vital Sign Reading Time Taken Comments Blood Pressure 136/76 08/24/2023 11:00 AM AUTOCAD Pulse 76 08/24/2023 11:00 AM AUTOCAD Temperature 36.2 ??C (97.2 ??F) 08/24/2023 10:[address] Respiratory Rate 14 08/24/2023 10:57 AM AUTOCAD Oxygen Saturation 98% 08/24/2023 10:57 AM AUTOCAD Inhaled Oxygen Concentration - - Weight 60 kg (132 lb 4.4 oz) 08/24/2023 10:57 AM AUTOCAD Height 162.8 cm (5' 4.09) 08/24/2023 10:[address] Body Mass Index 22.64 08/24/2023 10:57 AM AUTOCAD Plan of Treatment Not on file Medical Devices Implanted Type Area Press Room Supervisor Device Identifier Shelf Expiration Date Model / Serial / Lot Hardware E.G. Pins/Screws/Ro ds Hardware e.g. pins/screws/ rods Left: Arm Hardware E.G. Pins/Screws/Ro ds Hardware e.g. pins/screws/ rods Right: Foot Knee Implant Knee Implant Left: Knee Bsplt Tib Trt Sz4 - [id number] Implanted:Qty: 1 on 07/05/2023 by Uriel Renner M.D. at [facility] Knee Implant Right: Knee Sterling 03/06/2028 5536-B-40 0 / / [id number] Kn Fem Trt Rt Pors Sz-4 - [id number] Implanted:Qty: 1 on 07/05/2023 by Uriel Renner M.D. at [facility] Knee Implant Right: Knee Darvin 02/26/2028 5516-F-40 2 / / [id number] Pat Trt Sym Mtl 9x33 - [id number] Implanted:Qty: 1 on 07/05/2023 by Uriel Renner M.D. at [facility] Knee Implant Right: Knee Darvin 05/15/2028 5556-L-33 9 / / [id number] Ins Tib Trt Ps Sz4 10 - [id number] Implanted:Qty: 1 on 07/05/2023 by Uriel Renner M.D. at [facility] Knee Implant Right: Knee Sterling 01/04/2028 5532-G-41 0-E / / [id number] Reunion Rsa 4.5mm /28mm Implanted:Qty: 1 on 06/18/2019 at [facility] Shoulder Implant Sterling [id number] / / Reunion Rsa Screw 4.5/24mm Implanted:Qty: 1 on 06/18/2019 at [facility] Shoulder Implant Sterling [id number] 03/16/2024 2225-4781 / / [id number] Reunuion Screw 4.5mm/16mm Implanted:Qty: 1 on 06/18/2019 at [facility] Shoulder Implant Darvin [id number] 03/17/2024 3565-6983 / / [id number] Reunion Screw 4.5mm/24mm Implanted:Qty: 1 on 06/18/2019 at [facility] Shoulder Implant Darvin [id number] 03/21/2023 9964-7834 / / [id number] Humeral Insert 32mm Implanted:Qty: 1 on 06/18/2019 at [facility] Shoulder Implant Darvin 5571-S-32 04 / / Reunion Modular Humeral Stem Implanted:Qty: 1 on 06/18/2019 at [facility] Shoulder Implant Darvin [id number] 10/16/2023 84409-L-8 011 / / [id number] Reunuin Rsa Humeral Cup 32mm/4mm Implanted:Qty: 1 on 06/18/2019 at [facility] Shoulder Implant Sterling [id number] 03/09/2024 4037-4568 / / [id number] Reunion Rsa Center Screw 6.5mm Implanted:Qty: 1 on 06/18/2019 at [facility] Shoulder Implant Darvin [id number] 03/23/2024 4989-2822 / / [id number] Reunion Rsa Concentric Glensphere Implanted:Qty: 1 on 06/18/2019 at [facility] Shoulder Implant Sterling [id number] 03/09/2024 5573-C-32 [id number] Procedures Procedure Name Priority Date/Time Associated Diagnosis Comments BASIC METABOLIC PANEL, S/P Routine 08/24/2023 11:58 AM AUTOCAD Preoperative Exam HEMOGLOBIN A1C, B Routine 07/06/2023 5:5 2 AM AUTOCAD from Last 3 Months or Most Recently Relevant to Health Maintenance Results * Basic Metabolic Panel (08/24/2023 11:58 AM AUTOCAD) Potassium, P 4.5 3.6 - 5.2 mmol/L 08/24/2023 12:27 PM AUTOCAD CNFL Sodium, P 136 135 - 145 mmol/L 08/24/2023 12:27 PM AUTOCAD CNFL Chloride, P 100 98 - 107 mmol/L 08/24/2023 12:27 PM AUTOCAD CNFL Bicarbonate, P 28 22 - 29 mmol/L 08/24/2023 12:27 PM AUTOCAD CNFL Anion Gap, P 8 7 - 15 08/24/2023 12:27 PM AUTOCAD CNFL BUN (Blood Urea Nitrogen), P 14 6 - 21 mg/dL 08/24/2023 12:27 PM AUTOCAD CNFL Creatinine 0.64 0.59 - 1.04 mg/dL 08/24/2023 12:27 PM AUTOCAD CNFL Estimated GFR (eGFR) >90 >=60 mL/min/BSA 08/24/2023 12:27 PM AUTOCAD CNFL Comment: Estimated GFR calculated using the 2020 CKD_EPI creatinine equation. Calcium, Total, P 10.0 8.8 - 10.2 mg/dL 08/24/2023 12:27 PM AUTOCAD CNFL Glucose, P 111 70 - 140 mg/dL 08/24/2023 12:27 PM AUTOCAD CNFL Blood (Blood, Venous) 08/24/2023 11:58 AM AUTOCAD 08/24/2023 12:00 PM AUTOCAD Candice Barcenas APRN, C.N.P. LAB BLOOD ADD -ON [facility] [address] [place] [address], [place] CNFL [facility] in [address] [address] * (ABNORMAL) Hemoglobin A1c (07/06/2023 5:52 AM AUTOCAD) Hemoglobin A1c, B 7.2(H) 4.2 - 5.6 % 07/06/2023 6:50 AM AUTOCAD RDWG Comment: Hemoglobin A1c values greater than or equal to 6.5 percent are diagnostic for diabetes mellitus. ??Diagnosis should be confirmed by repeat testing. ??In diabetic patients, HbA1c goals should be discussed with healthcare provider. Blood (Blood, Venous) 07/06/2023 5:52 AM AUTOCAD 07/06/2023 6:30 AM AUTOCAD Uriel Renner M.D. LAB BLOOD ADD-ON [facility] [address] [place] [address], [place] RDWG [facility] in [place] [address] [place] [address] from Last 3 Months or Most Recently Relevant to Health Maintenance Advance Directives For more information, please contact: [phone] Documents on File Type Date Recorded Patient Computer Architect Expl anation Advance Directives 07/07/2023 9:39 AM Robert Devlin HCPOA/ADVOCATE/AGENT/ CASH CROP FARMER/SURROG ATE * Full Code (Latest Code Status on File) Date Activated Date Inactivated Comments 07/05/2023 11:01 AM 07/06/2023 3:55 PM Question Answer Comments Full Code: Not Discussed Due to: Patient not available * Full Code Date Activated Date Inactivated Comments 06/18/2019 11:29 AM 06/19/2019 12:47 PM Question Answer Comments Full Code: Not Discussed Due to: Patient not available Healthcare Agents on File Name Relationship Healthcare Agent Relationship Communication Robert Harrell Spouse Health Care Agent Elizabeth Diaz Daughter First Alternate Health Care Agent Verónica Devlin Daughter Second Alternate Health Care Agent Care Teams Fundraising Coordinator Relationship Specialty Start Date End Date None Reported, Pcp PCP - General Family Medicine 07/05/23
--- OUTSIDE RECORDS SUMMARY | 2024-02-11 04:13 | XMS_ITS | Referral Summary ---
Author Organization [facility] Address [address] [place] [address] Care Team Providers Care Bridge Attacher Name Role Phone No Ref-Primary, Physician Primary Care Provider Allergies Active Allergy Reactions Criticality Noted Date Comments Codeine GI Disturbance 06/24/2014 Statins 03/08/2018 Medications Medication Sig Dispensed Refills Start Date End Date Status aspirin 81 MG tablet Take 1 tablet by mouth daily. 7 tablet OTC 10/07/2011 Active Additional Information Patient taking differently:81 mg OralPRN, Reported on 06/24/2014 estradiol (ESTRACE) 0.5 MG tablet Take 0.5 mg by mouth daily Unknown mg Active Red Yeast Rice 600 MG TABS Take 600 mg by mouth daily Active calcium carbonate (TUMS) 500 MG chewable tablet Take 1 chew tab by mouth as needed for heartburn Active LEVOTHYROXINE SODIUM PO Take 25 mcg by mouth Acti ve Plant Sterols and Stanols (CHOLEST OFF PO) Take 1 tablet by mouth daily Active [place]-3 Fatty Acids (OMEGA-3 FISH OIL PO) Take 1 g by mouth Active IBUPROFEN PO Active Acetaminophen (TYLENOL PO) Active GABAPENTIN PO Take 200 mg by mouth At Bedtime Active METFORMIN HCL PO Take 500 mg by mouth daily (with breakfast) Active Active Problems Problem Noted Date Diagnosed [...] AM CDT Pulse 66 06/24/2014 11:08 AM TECHNICAL SUPERVISOR Temperature 36.3 ??C (97.3 ??F) 03/08/2018 8:00 [...] on file Medical Devices Implanted Type Area Soil Expert Device Identifier Shelf Expiration Date Model / Serial / Lot Eye Imp Iol Moe 1-Piece Tecnis Toric +22.0 [id number] Implanted:Qty: 1 on 03/08/2018 by Pankaj Quiñones MD at [facility] Lens/Eye Implant Right: Eye [employer] 06/17/2021 [id number] / [id number] / Screw Implanted:Qty: 1 on 07/03/2014 by Javad Ray MD at [facility] Right: Foot KAYLEEN / [id number] / [id number] Description:1.9mm Emergency Screws 12mm screw length 2.7mm Locking Screw 14mml Implanted:Qty: 1 on 07/03/2014 by Javad Ray MD at [facility] Right: Foot KAYLEEN / [id number] / [id number] 050 Description:2.7 Locking Scre w T7 14mm 2.7mm Locking Screws 16mml Implanted:Qty: 2 on 07/03/2014 by Javad Ray MD at [facility] Right: Foot KAYLEEN / [id number] / [id number] 050 Description:2.7mm Locking Sc rews T7 16mm length 2.7mm Locking Screws 18mml Implanted:Qty: 1 on 07/03/2014 by Javad Ray MD at [facility] Right: Foot KAYLEEN / [id number] / [id number] Description:2.7mm Locking Sc rew T7 18mm length 2.7mm Non-Locking Screw 24mml Implanted:Qty: 1 on 07/03/2014 by Javad Ray MD at [facility] Right: Foot KAYLEEN / [id number] / [id number] Description:2.7mm Non- Locki ng Screw T7 24mm length K Wire .062 Implanted:Qty: 1 on 07/03/2014 by Javad Ray MD at [facility] Right: Foot Depuy / / [id number] Twist Drill Implanted:Qty: 1 on 07/03/2014 by Javad Ray MD at [facility] Right: Foot KAYLEEN / [id number] / [id number] 0506 Description:1.4 x 27mm AO Tw ist Drill Twist Drill 1.9 X 27mm Implanted:Qty: 1 on 07/03/2014 by Javad Ray MD at [facility] Right: Foot KAYLEEN / [id number] / [id number] 0506 Description:1.9x27mm AO Twis t Drill Countersinks 1.7mm 47mm Implanted:Qty: 1 on 07/03/2014 by Javad Ray MD at [facility] Right: Foot KAYLEEN / [id number] / [id number] Description:1.7mm screw, 47m m AO Countersinks Curved Plate 2.7mm Implanted:Qty: 1 on 07/03/2014 by Javad Ray MD at [facility] KAYLEEN / [id number] / [id number] 0506 Description:Curved Plate 2.7 mm 26mm length 4 holes Concave Reamer Implanted:Qty: 1 on 07/03/2014 by Javad Ray MD at [facility] Right: Foot KAYLEEN / 6514-7-21 0507 Description:18mm Concave [place] darrius Floor Sanding Machine Operator Implanted:Qty: 1 on 07/03/2014 by Javad Ray MD at [facility] Right: Foot KAYLEEN / [id number] [id number] Description:18mm Barrel Ream er Convex Reamer 18mm Implanted:Qty: 1 on 07/03/2014 by Javad Ray MD at [facility] Right: Foot KAYLEEN / [id number] 8 050 Description:18mm Convex Ream er Kwire Implanted:Qty: 2 on 07/03/2014 by Javad Ray MD at [facility] Right: Foot KAYLEEN / [id number] / [id number] 050 Description:K Wire Smooth, 1 .4 x 100mm Care Teams Bridge Attacher Relationship Specialty Start Date End Date No Ref-Primary, Physician PCP - General 03/08/18
--- OUTSIDE RECORDS SUMMARY | 2024-02-11 04:13 | XMS_ITS | Encounter Summary ---
Author Organization [facility] Address [address] [place] [address] Care Team Providers Care Personnel Worker Name Role Phone None Reported, Pcp Primary Care Provider Unavail able Reason for Visit * Reason Onset Date Comments Follow-up 11/14/2023 [facility] is c alling to complete your 1-year follow-up PROMIS-CAT questionnaires. You will receive questionnaires at different timepoints in the future. You can complete the current questionnaires in your patient portal and no return call is necessary. If you have additional questions about this survey, please contact your care provider directly. Thank you! Encounter Details Date Type Department Care Team (Latest Contact Info) Description 11/14/2023 Clinical Communication Department of Spine in [place], [place] [address] [place] [phone] Candice Bhatti R.N. [address] [place] [phone] Follow-up ([facility] is calling to complete your 1-year follow-up PROMIS-CAT questionnaires. You will receive questionnaires at different timepoints in the future. You can complete the current questionnaires in your patient portal and no return call is necessary. If you have additional questions about this survey, please contact your care provider directly. Thank you!//) Social History Tobacco Use Types Packs/Day Years Used Date Smoking Tobacco: Former Cigarettes Smokeless Tobacco: Never Alcohol Use Standard Drinks/Week Comments Not Currently 0 (1 standard drink = 0.6 oz pur e alcohol) [facility] Utilities Answer Date Recorded In the past [...] your living situation today? I have a [place] place to live 09/19/2023 Sex and Gender Information Value Date Recorded Sex Assigned at Not on file Gender Identity Not on file Sexual Orientation Straight 10/24/2022 2: 54 PM CDT documented as of this encounter Miscellaneous Notes * Telephone Encounter - Candice Bhatti RJudithN. - 11/14/2023 2:12 PM CDT [facility] is calling to complete your 1-year follow-up PROMIS-CAT questionnaires. You will receive questionnaires at different timepoints in the future. You can complete the current questionnaires in your patient portal and no return call is necessary. If you have additional questions about this survey, please contact your care provider directly. Thank you! documented in this encounter Plan of Treatment Not on file documented as of this encounter Visit Diagnoses Not on filedocumented in this encounter Care Teams Personnel Worker Relationship Specialty Start Date End Date None Reported, Pcp PCP - General Family Medicine 07/05/23 documented as of this encounter
--- OUTSIDE RECORDS SUMMARY | 2024-02-11 04:13 | XMS_ITS ---
Author Organization [facility] Address [address] [place] [address] Care Team Providers Care Judicial Reporter Name Role Phone Unavailable Unavailable Unavailable Surgery Details Not on file Complications Check Surgery Details section. Procedure Estimated Blood Loss Check Surgery Details section. Procedure Findings Check Surgery Details section. Procedure Specimens Taken Check Surgery Details section.
--- OUTSIDE RECORDS SUMMARY | 2024-02-11 04:13 | XMS_ITS | Clinical Summary ---
Author Organization [facility] Address [address] [place] [address] Care Team Providers Care Business Technology Architect Name Role Phone No Ref-Primary, Physician [...] Take 1 tablet by mouth daily Active [place]-3 Fatty Acids (OMEGA-3 FISH OIL PO) Take [...] AM CDT Pulse 66 06/24/2014 11:08 AM CREW LEADER Temperature 36.3 ??C (97.3 ??F) 03/08/2018 8:00 [...] on file Medical Devices Implanted Type Area Balance Wheel Motion Inspector Device Identifier Shelf Expiration Date Model / Serial / Lot Eye Imp Iol Moe 1-Piece Tecnis Toric +22.0 [id number] Implanted:Qty: 1 on 03/08/2018 by Pankaj Quiñones MD at [facility] Lens/Eye Implant Right: Eye [employer] 06/17/2021 [id number] / [id number] / Screw Implanted:Qty: 1 on 07/03/2014 by Javad Ray MD at [facility] Right: Foot KAYLEEN / [id number] / [id number] Description:1.9mm Emergency Screws 12mm screw length 2.7mm Locking Screw 14mml Implanted:Qty: 1 on 07/03/2014 by Javad Ray MD at [facility] Right: Foot KAYLEEN / [id number] / [id number] 050 Description:2.7 Locking Scre w T7 14mm 2.7mm Locking Screws 16mml Implanted:Qty: 2 on 07/03/2014 by Javad Ray MD at [facility] Right: Foot KAYLEEN / [id number] / [id number] 050 Description:2.7mm Locking Sc rews T7 16mm length 2.7mm Locking Screws 18mml Implanted:Qty: 1 on 07/03/2014 by Javad Ray MD at [facility] Right: Foot KAYLEEN / [id number] / [id number] Description:2.7mm Locking Sc rew T7 18mm length 2.7mm Non-Locking Screw 24mml Implanted:Qty: 1 on 07/03/2014 by Javad Ray MD at [facility] Right: Foot KAYLEEN / [id number] / [id number] 0506 Description:2.7mm Non- Locki ng Screw T7 24mm length K Wire .062 Implanted:Qty: 1 on 07/03/2014 by Javad Ray MD at [facility] Right: Foot Depuy / / [id number] Twist Drill Implanted:Qty: 1 on 07/03/2014 by Javad Ray MD at [facility] Right: Foot KAYLEEN / [id number] / [id number] 0506 Description:1.4 x 27mm AO Tw ist Drill Twist Drill 1.9 X 27mm Implanted:Qty: 1 on 07/03/2014 by Javad Ray MD at [facility] Right: Foot KAYLEEN / [id number] / [id number] 0506 Description:1.9x27mm AO Twis t Drill Countersinks 1.7mm 47mm Implanted:Qty: 1 on 07/03/2014 by Javad Ray MD at [facility] Right: Foot KAYLEEN / [id number] / [id number] 0506 Description:1.7mm screw, 47m m AO Countersinks Curved Plate 2.7mm Implanted:Qty: 1 on 07/03/2014 by Javad Ray MD at [facility] KAYLEEN / [id number] / [id number] 0506 Description:Curved Plate 2.7 mm 26mm length 4 holes Concave Reamer Implanted:Qty: 1 on 07/03/2014 by Javad Ray MD at [facility] Right: Foot KAYLEEN / [id number] 0507 Description:18mm Concave Reeves darrius Clinical Scientist Implanted:Qty: 1 on 07/03/2014 by Javad Ray MD at [facility] Right: Foot KAYLEEN / [id number] 506 Description:18mm Barrel Ream er Convex Reamer 18mm Implanted:Qty: 1 on 07/03/2014 by Javad Ray MD at [facility] Right: Foot KAYLEEN / [id number] 050 Description:18mm Convex Ream er Kwire Implanted:Qty: 2 on 07/03/2014 by Javad Ray MD at [facility] Right: Foot KAYLEEN / [id number] / [id number] 050 Description:K Wire Smooth, 1 .4 x 100mm Care Teams Business Technology Architect Relationship Specialty Start Date End Date No Ref-Primary, Physician PCP - General 03/08/18
--- OUTSIDE RECORDS SUMMARY | 2024-02-11 04:13 | XMS_ITS | Continuity of Care Document ---
Author Organization [facility] Address [address] [address] [place] [address] Phone Care Team Providers Care Agency Sales Management Assistant Name Role Phone Tarah COBB, Aureliano Unavailable Unavailable Advance Directives Directive Yes / No Effective Date File Name No Information Encounters Encounter Description Practice Location Reason(s) For Visit Diagnoses Date Provider Providers Copied on Encounter [facility], [address] [address], [place], [place], [id number], [place] tel:[phone] [facility] No Information Tarah Bedoya. [address] [facility], [facility] [address], [place], [place], [id number], [place]. tel:[phone] Family History Family Member Type Diagnosis Age At Onset No Information Payers Payer name Insurance type Covered alliance party ID Authoriza tion(s) No Information Social History Type Description Quantity Date Captured Comments Sex Female Smoking Status No Information Chief Complaint And Reason For Visit No Information Reason For Referral Reason For Referral No Information History Of Present Illness Encounter Date Complaint History Of Prese nt Illness No Information Functional Status Date Functional Assessmen t No Information Instructions Date Instruction Additional Infor mation No Information Assessments Type Assessment Date No Information Patient Care Teams Name Effective Dates (start - stop) Status Members No Information
--- OUTSIDE RECORDS SUMMARY | 2024-02-11 04:13 | XMS_ITS | Clinical Summary ---
Author Organization [facility] Address [address] [place] [address] Care Team Providers Care Title I Instructional Assistant Name Role Phone None Reported, Pcp Primary Care Provider Unavail able Source Comments Patient records contain information from all sites at [facility]. For routine questions regarding patient records, call [phone] during business hours, M-F 8:00 AM - 5:00 PM Central Time. Record requests for emergency care only can be directed to [phone] at any time.[facility] Allergies Active Allergy Reactions Criticality Noted Date [...] Overview: Added automatically from request for surgery [id number] Primary Osteoarthritis Shoulder Right 01/15/2019 Overview: Added automatically from request for surgery [id number] Encounter For Other Orthopedic Aftercare 017 Nevus [...] 11/14/2023 Clinical Communication Department of Spine in [place], [place] [address] [place] [address] Candice Bhatti R.N. Follow-up ([facility] is calling to complete your 1-year follow-up PROMIS-CAT questionnaires. You will receive questionnaires at different timepoints in the future. You can complete the current questionnaires in your patient portal and no return call is necessary. If you have additional questions about this survey, please contact your care provider directly. Thank you!//) from Last 3 Months Immunizations Name Administration [...] drink = 0.6 oz pur e alcohol) [facility] TopSchool Answer Date Recorded In the past 12 months has [employer] electric, gas, oil, or water [employer] threatened to shut off services in your home? No 09/19/2023 Social Connection and Isolat ion Panel [NHANES] Answer Date Recorded Frequency of Communication w ith Friends and Family More than three times a week 04/11/2019 Frequency of Social Gatherin gs with Friends and Family Three times a week 04/11/2019 Attends Protestant Services Not on file 04/11 Active Member [...] your living situation today? I have a [facility] place to live 09/19/2023 Sex and Gender Information Value Date Recorded Sex Assigned at Not on file Gender Identity Not on file Sexual Orientation Straight 10/24/2022 2: 54 PM CDT Last Filed Vital Signs Vital Sign Reading Time Taken Comments Blood Pressure 136/76 08/24/2023 11:00 AM LOAD OUT PERSON Pulse 76 08/24/2023 11:00 AM LOAD OUT PERSON Temperature 36.2 ??C (97.2 ??F) 08/24/2023 10:[address] Respiratory Rate 14 08/24/2023 10:57 AM LOAD OUT PERSON Oxygen Saturation 98% 08/24/2023 10:57 AM LOAD OUT PERSON Inhaled Oxygen Concentration - - Weight 60 kg (132 lb 4.4 oz) 08/24/2023 10:57 AM LOAD OUT PERSON Height 162.8 cm (5' 4.09) 08/24/2023 10:[address] Body Mass Index 22.64 08/24/2023 10:57 AM LOAD OUT PERSON Plan of Treatment Health Maintenance Due Date Last Done Comments Diabetic Office Visit with F oot Exam 1946 Dilated Eye Exam 1945 Hepatitis C Screening 1945 Urine Albumin 1945 Visit: Chronic Disease, age 18+ 1946 Visit: Medicare Annual Wellness 1945 Depression Screening (Annual PHQ-2) 08/14/2023 Hemoglobin A1C 01/04/2024 07/06/2023, 03/20/2019 COVID-19 Vaccine (2022-09 4 season) 2024 09/11/2023, 08/21/2022, 05/12/2022, Additional history exists Creatinine Level (Kidney Fun ction Test) 08/24/2024 08/24/2023, 03/20/2019, 03/30/2018 Office Visit for Blood Press ure Check / Re-check 08/24/2024 08/24/2023 DTaP,Tdap,and Td Vaccines (3 - Td or Tdap) 03/14/2032 03/14/2022, 03/22/2011, 07/05/1999 Pneumococcal vaccine (65+ years) Completed 01/08/20 16, 07/15/2014 Hepatitis A Vaccines Completed 12/15/2016, 06/15/20 16 Zoster Vaccines Completed 03/27/2019, 06/12/2018, 12/30/2011 Influenza Vaccine Completed 05/12/2023, , 04/25/2021, Additional history exists Fall Risk Screen (Annual) Completed 08/24/2023 Medical Devices Implanted Type Area Glass Beveler Device Identifier Shelf Expiration Date Model / Serial / Lot Hardware E.G. Pins/Screws/Ro ds Hardware e.g. pins/screws/ rods Left: Arm Hardware E.G. Pins/Screws/Ro ds Hardware e.g. pins/screws/ rods Right: Foot Knee Implant Knee Implant Left: Knee Bsplt Tib Trt Sz4 - [id number] Implanted:Qty: 1 on 07/05/2023 by Uriel Renner M.D. at [facility] Knee Implant Right: Knee Darvin 03/06/2028 5536-B-40 0 / / [id number] Fem Trt Rt Pors Sz-4 - [id number] Implanted:Qty: 1 on 07/05/2023 by Uriel Renner M.D. at [facility] Knee Implant Right: Knee Darvin 02/26/2028 5516-F-40 2 / / [id number] Pat Trt Sym Mtl 9x33 - [id number] Implanted:Qty: 1 on 07/05/2023 by Uriel Renner M.D. at [facility] Knee Implant Right: Knee Darvin 05/15/2028 5556-L-33 9 / / [id number] Tib Trt Ps Sz4 10 - [id number] Implanted:Qty: 1 on 07/05/2023 by Uriel Renner M.D. at [facility] Knee Implant Right: Knee Purling 01/04/2028 5532-G-41 0-E / / [id number] Reunion Rsa 4.5mm /28mm Implanted:Qty: 1 on 06/18/[address] [facility] Shoulder Implant Darvin [id number] / / Reunion Rsa Screw 4.5/24mm Implanted:Qty: 1 on 06/18/[address] [facility] Shoulder Implant Darvin [id number] 03/16/2024 8502-1555 / / [id number] Reunuion Screw 4.5mm/16mm Implanted:Qty: 1 on 06/18/[address] [facility] Shoulder Implant Darvin [id number] 03/17/2024 5528-8473 / / [id number] Reunion Screw 4.5mm/24mm Implanted:Qty: 1 on 06/18/[address] [facility] Shoulder Implant Purling [id number] 03/21/2023 5137-4576 / / [id number] Humeral Insert 32mm Implanted:Qty: 1 on 06/18/[address] [facility] Shoulder Implant Purling 5571-S-32 04 / / Reunion Modular Humeral Stem Implanted:Qty: 1 on 06/18/[address] [facility] Shoulder Implant Darvin [id number] 10/16/2023 47346-M-2 011 / / [id number] Reunuin Rsa Humeral Cup 32mm/4mm Implanted:Qty: 1 on 06/18/[address] [facility] Shoulder Implant Purling [id number] 03/09/2024 4723-5237 / / [id number] Reunion Rsa Center Screw 6.5mm Implanted:Qty: 1 on 06/18/[address] [facility] Shoulder Implant Purling [id number] 03/23/2024 0110-6334 / / [id number] Reunion Rsa Concentric Glensphere Implanted:Qty: 1 on 06/18/[address] [facility] Shoulder Implant Darvin [id number] 03/09/2024 5573-C-32 [id number] Procedures Procedure Name Priority Date/Time Associated Diagnosis Comments BASIC METABOLIC PANEL, S/P Routine 08/24/2023 11:58 AM LOAD OUT PERSON Preoperative Exam HEMOGLOBIN A1C, B Routine 07/06/2023 5:5 2 AM LOAD OUT PERSON from Last 3 Months or Most Recently Relevant to Health Maintenance Results * Basic Metabolic Panel (08/24/2023 11:58 AM LOAD OUT PERSON) Potassium, P 4.5 3.6 - 5.2 mmol/L 08/24/2023 12:27 PM LOAD OUT PERSON CNFL Sodium, P 136 135 - 145 mmol/L 08/24/2023 12:27 PM LOAD OUT PERSON CNFL Chloride, P 100 98 - 107 mmol/L 08/24/2023 12:27 PM LOAD OUT PERSON CNFL Bicarbonate, P 28 22 - 29 mmol/L 08/24/2023 12:27 PM LOAD OUT PERSON CNFL Anion Gap, P 8 7 - 15 08/24/2023 12:27 PM LOAD OUT PERSON CNFL BUN (Blood Urea Nitrogen), P 14 6 - 21 mg/dL 08/24/2023 12:27 PM LOAD OUT PERSON CNFL Creatinine 0.64 0.59 - 1.04 mg/dL 08/24/2023 12:27 PM LOAD OUT PERSON CNFL Estimated GFR (eGFR) >90 >=60 mL/min/BSA 08/24/2023 12:27 PM LOAD OUT PERSON CNFL Comment: Estimated GFR calculated using the 2020 CKD_EPI creatinine equation. Calcium, Total, P 10.0 8.8 - 10.2 mg/dL 08/24/2023 12:27 PM LOAD OUT PERSON CNFL Glucose, P 111 70 - 140 mg/dL 08/24/2023 12:27 PM LOAD OUT PERSON CNFL Blood (Blood, Venous) 08/24/2023 11:58 AM LOAD OUT PERSON 08/24/2023 12:00 PM LOAD OUT PERSON Candice Barcenas APRN, C.N.P. LAB BLOOD ADD -ON Performing Organization Address City/[facility] Co de Phone Number [facility] [address] [place] [address], [facility] CNFL in [address] [address] * (ABNORMAL) Hemoglobin A1c (07/06/2023 5:52 AM LOAD OUT PERSON) Hemoglobin A1c, B 7.2(H) 4.2 - 5.6 % 07/06/2023 6:50 AM LOAD OUT PERSON RDWG Comment: Hemoglobin A1c values greater than or equal to 6.5 percent are diagnostic for diabetes mellitus. ??Diagnosis should be confirmed by repeat testing. ??In diabetic patients, HbA1c goals should be discussed with healthcare provider. Blood (Blood, Venous) 07/06/2023 5:52 AM LOAD OUT PERSON 07/06/2023 6:30 AM LOAD OUT PERSON Uriel Renner M.D. LAB BLOOD ADD-ON Performing Organization Address City/[facility]/ZIP Co de Phone Number [facility] [address] [place] [address], [facility] RDWG in [place] [address] [place] [address] from Last 3 Months or Most Recently Relevant to Health Maintenance Advance Directives For more information, please contact: [phone] Documents on File Type Date Recorded Patient Batteryman Expl anation Advance Directives 07/07/2023 9:39 AM Robert Devlin HCPOA/ADVOCATE/AGENT/ SCALE OPERATOR/SURROG ATE * Full Code (Latest Code Status [...] File Name Relationship Healthcare Agent Relationship Communication Roberttrip Harrell Spouse Health Care Agent Elizabeth Joe Daughter First Alternate Health Care Agent Verónica Devlin Daughter Second Alternate Health Care Agent Care Teams Title I Instructional Assistant Relationship Specialty Start Date End Date None Reported, Pcp PCP - General Family Medicine 07/05/23
== END 2024-02-09 13:43 | disposition home or self-care (01) ==
LOC: NFLDREF 02-11 04:11
PROVIDERS: PCP Family Medicine; Referring Provider Family Medicine; Visit Provider Family Medicine
DX: N39.0 Urinary tract infection, site not specified (principal)
CPT/HCPCS: 87086

== ENCOUNTER 2024-05-07 10:25 | Outpatient (CLI) | payer MEDICARE, BC, SELFPAY ==
--- OUTSIDE RECORDS SUMMARY | 2024-05-11 15:13 | XMS_ITS | Clinical Summary ---
Author Organization [facility] Address [place] [address] Care Team Providers Care Music Therapy Specialist Name Role Phone Vanessa García MD [...] dose: 4000mg in 24 hrs. 100 tablet 7 Active ibuprofen (ADVIL; MOTRIN) 600 mg tabletIndications:Pr imary osteoarthritis of left knee Take 1 tablet by mouth every 6 hours if needed for Pain (Take with food). Maximum of 3200 mg in 24 hours. 40 tablet 7 Active aspirin chewable 81 mg chewable tablet Take 1 tablet by mouth once daily with a meal. 0 8 Active rosuvastatin (CRESTOR) 5 mg tabletIndications:Dy slipidemia Take 1 tablet by mouth at bedtime. Further refills to come from primary care provider. 90 tablet 0 Active Magnesium Oxide 500 mg tab Daily Active mirabegron EXTENDED-release (MYRBETRIQ) 50 mg tabletIndications:Ov eractive bladder Take 1 tablet by mouth once daily. 30 tablet 11 1 Active estradioL (ESTRACE) 0.1 mg/g vaginal creamIndications:Rec urrent urinary tract infection Insert 1 g into the vagina at bedtime. 1 Tube 5 1 Active gabapentin (Neurontin) 100 mg capsuleIndications:A ftercare following surgery of the musculoskeletal system Take 1 Capsule (100 mg) by mouth three times daily. 270 Capsule 4 Active gabapentin (Neurontin) 100 mg capsuleIndications:A ftercare following surgery of the musculoskeletal system Take 1 Capsule (100 mg) by mouth three times daily. 270 Capsule 3 05/06/20 24 Discontinu ed(Reorder (E-cancel not sent)) Active Problems Problem Noted Date Diagnosed Date Dyslipidemia 04/12/2019 s/p left total knee arthroplasty 04/20/17 04/24/20 17 Type 2 diabetes mellitus 04/20/2017 Hypothyroid 04/20/2017 Atypical mole 04/20/2017 Primary osteoarthritis of left knee 03/28/2017 Primary osteoarthritis of right knee 03/28/2017 Adenomatous colon polyp 10/30/2013 Overview (10/30/2013): Colonoscopy 10/2013 polyp repeat in 5 years Encounters Date Type Department Care Team Description 05/06/2024 Telephone [facility] Joint Replacement [facility] [address] [facility] [address] [place] [address] Mariann Winn PA Refill Request (GABAPENTIN 100 MG CAPSULES) 04/08/2024 Telephone [facility] Joint Replacement [facility] [address] [place] [id number] Mariann Winn PA Need Meds from Last 3 Months Immunizations Name Administration Dates Next Due Influenza, [...] Comments Blood Pressure 107/65 09/09/2020 11:02 AM CENTRAL OFFICE INSPECTOR Pulse 77 09/09/2020 11:02 AM CENTRAL OFFICE INSPECTOR Temperature 36.4 ??C (97.5 ??F) 06/24/2020 2:38 PM CS T Respiratory Rate 16 04/22/2017 7:38 AM CDT Oxygen Saturation 98% 09/09/2020 11:02 AM CENTRAL OFFICE INSPECTOR Inhaled Oxygen Concentration - - Weight 68.1 kg (150 lb 1.6 oz) 09/09/2020 11:02 AM CENTRAL OFFICE INSPECTOR Height 162.6 cm (5' 4.02) 04/18/2018 11:26 [...] 04/18/2018, 04/18/2017, 03/29/2017 Tetanus booster 03/22/2021 03/22/2011, 04/2011, 07/05/1999 RSV vaccine for adults or pr egnancy (1 - 1-dose 75+ series) 2021 COVID-19 vaccine series ( season) 2024 Influenza for age 65+ 04/14/2024 04/29/2014 Tdap Completed 03/22/2011 Medical Devices Implanted Type Area Feed Management Advisor Device Identifier Shelf Expiration Date Model / Serial / Lot Patella Sz32 Miriam Ii Rnd Penon Pors - [id number] Implanted:Qty: 1 on 04/20/2017 by Barrie Contreras MD at [facility] Ortho Total Joint Left: Patella [employer] 01/11/2027 [id number] # / / [id number] Lens Iol 22 Tecnis - [id number] Implanted:Qty: 1 on 10/13/2015 by Evan Walker MD at [facility] Left: Eye [employer] 07/07/2020 IQ6516# / [id number] 1 / Cmnt Bone Simplex Atb Tobramycin - [id number] Implanted:Qty: 1 on 04/20/2017 by Barrie Contreras MD at [facility] Left: Knee [employer] 08/13/2018 6197-9-00 1# / / [id number] Cmnt Bone Simplex Atb Tobramycin - [id number] Implanted:Qty: 1 on 04/20/2017 by Barrie Contreras MD at [facility] Left: Knee [employer] 08/13/2018 6197-9-00 1# / / [id number] Baseplate Tib Lt Sz2 Miriam Ii Titnm Non Pors - [id number] Implanted:Qty: 1 on 04/20/2017 by Barrie Contreras MD at [facility] Left: Tibia [employer] 03/04/2027 71- # / / [id number] Fem Lt Sz4n Legion Narrow Croxin - [id number] Implanted:Qty: 1 on 04/20/2017 by Barrie Contreras MD at [facility] Left: Femur [employer] 12/05/2026 [id number]# / / [id number] Insert Knee Sz1-2 12mm Legion Cruc Ret High Flex Xlpe - [id number] Implanted:Qty: 1 on 04/20/2017 by Barrie Contreras MD at [facility] Left: Tibia [employer] 07/13/2024 [id number]# / / [id number] Advance Directives * Full Code (Latest Code [...] 12:27 PM 02/18/2015 3:02 PM Care Teams Music Therapy Specialist Relationship Specialty Start Date End Date Vanessa García MD [address] [place] [address] PCP - General Family Practice 10/07/15
--- OUTSIDE RECORDS SUMMARY | 2024-05-11 15:13 | XMS_ITS | Continuity of Care Document ---
Author Organization [facility] Address [address] [address] [place] [address] Phone Care Team Providers Care Gunner'S Mate G Name Role Phone Tarah COBB, Aureliano Unavailable Unavailable Advance Directives Directive Yes / No Effective Date File Name No Information Encounters Encounter Description Practice Location Reason(s) For Visit Diagnoses Date Provider Providers Copied on Encounter [facility], [address] [address], [place], [place], [id number], [place] tel:[phone] [facility] No Information Tarah Bedoya. [address] [facility], [facility] [address], [place], [place], [id number], [place]. tel:[phone] Family History Family Member Type Diagnosis Age At Onset No Information Payers Payer name Insurance type Covered libertarian ID Authoriza tion(s) No Information Social History [...]
--- OUTSIDE RECORDS SUMMARY | 2024-05-11 15:14 | XMS_ITS | Encounter Summary ---
Author Organization [place] Address [address] [place] [address] Care Team Providers Care A And P Technician Name Role Phone No Ref-Primary, Physician Primary Care Provider Reason for Visit * Reason Onset Date Comments Appointment 07/07/2020 Appointment for hematuria and chronic cystitis Encounter Details Date Type Department Care Team ([facility] st Contact Info) Description 07/07/2020 [facility] [address] [place] [address] None Appointment (Appointment for hematuria [...] Saul Gamez - 07/07/2020 2:39 PM CST [facility] Call Center Phone Message May a detailed message be left on voicemail: yes Reason for Call: Other: Pt being referred from [facility] for an appointment in [place] for hematuria and chronic cystitis. Per guidelines, clinic review for hematuria. The referral will be faxed over. Please give pt a call to discuss scheduling an appointment. Action Taken: Message routed to: [facility] urology Travel Screening: Not Applicable APY TECHNICIAN documented in this encounter Plan of Treatment Not on file documented as of this encounter Visit Diagnoses Not on filedocumented in this encounter Care Teams A And P Technician Relationship Specialty Start Date End Date No Ref-Primary, Physician PCP - General 03/08/18 documented as of this encounter
--- OUTSIDE RECORDS SUMMARY | 2024-05-11 15:14 | XMS_ITS | Encounter Summary ---
Author Organization [facility] Address [address] [place] [address] Care Team Providers Care Freight Car Loader Name Role Phone None Reported, Pcp Primary Care Provider Unavail able Reason for Referral * Outpatient (Routine) - Closed Specialty Diagnoses / Procedures Referred By Carley t Referred To Contact Diagnoses Pain Shoulder Right Pain Shoulder Left Procedures DX Shoulder Bilateral 2+ Views Candice Lynch APRN, C.N.P., D.N.P. [address] [place] [address] [facility] Region Referral ID Status Reason Start Date Expiration Date Visits Re quested Visits Authorized [id number] Closed 04/11/2024 04/11/2025 1 1 Encounter Details Date Type Department Care Team (Late st Contact Info) Description 04/11/2024 Clinical Communication Department of Orthopedic Surgery in [place], [place] [address] [place] [address] Candice Lynch APRN, C.N.P., D.N.P. [address] [place] [address] Social History Tobacco Use Types Packs/Day Years Used Date Smoking Tobacco: Former Cigarettes Smokeless Tobacco: Never Alcohol Use Standard Drinks/Week Comments Not Currently 0 (1 standard drink = 0.6 oz pur e alcohol) [facility] Utilities Answer Date Recorded In the [...] Care Team (Late st Contact Info) Description 06/04/2024 2:30 PM CDT Office Visit Department of Orthopedic Surgery in [address] [phone] Candice Lynch, EDGAR, C.N.P., D.N.P. [address] [place] [phone] Discharge Disposition: Home or Self Care documented as of this encounter Results * DX Shoulder Bilateral 2+ Views (04/16/2024 10:29 AM CDT) Anatomical Region Laterality Modality Upper Extremity, Shoulder, M usculoskeletal RST LOS, Musculoskeletal ARZ LOS, Muskuloskeletal FLA LOS Bilateral Digit al Radiography Impressions 04/16/2024 10:33 AM CDT Partial comparison with right shoulder radiographs 11/16/2021. 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 No periprosthetic lucency or fracture. Mildly increased notching along the inferior glenoid with increased heterotopic ossification. Right distal clavicular excision with increased heterotopic ossification along the acromioclavicular joint. Increased moderate size subacromial spur. On the left, there is mild glenohumeral and acromioclavicular joint osteoarthritis with evidence of prior left distal clavicular excision alignment normal. No acute fracture. Calcifications within the rotator cuff tendon can be seen in the setting of calcific tendinitis. Narrative 04/16/2024 10:33 AM CDT EXAM: DX SHOULDER BILATERAL 2+ VIEWS Procedure Note Stefan White M.D. - 04/16/2024 EXAM: DX SHOULDER BILATERAL 2+ VIEWS IMPRESSION: Partial comparison with right shoulder radiographs 11/16/2021. On the right, there is a reverse right total shoulder arthroplasty innear- anatomic alignment. No periprosthetic lucency or fracture. Mildlyincreased notching along the inferior glenoid with increased heterotopicossification. Right distal clavicular excision with increased heterotopic ossification along theacromioclavicular joint. Increased moderate size subacromial spur. On the left, there is mild glenohumeral and acromioclavicular jointosteoarthritis with evidence of prior left distal clavicular excisionalignment normal. No acute fracture. Calcifications within the rotatorcuff tendon can be seen in the setting of calcific tendinitis. Candice Lynch APRN C.N.P., D.N.P. IMG DIAGNOSTIC IMAGING PROCEDURES documented in this encounter Visit Diagnoses Diagnosis Pain Shoulder Right- Primary Pain Shoulder Left Pain Shoulder Right Pain Shoulder Left documented in this encounter Care Teams Freight Car Loader Relationship Specialty Start Date End Date None Reported, Pcp PCP - General Family Medicine 07/05/23 documented as of this encounter
--- OUTSIDE RECORDS SUMMARY | 2024-05-11 15:14 | XMS_ITS | Referral Summary ---
Author Organization [place] Address [address] [place] [address] Care Team Providers Care Stamping Mill Tender Name Role Phone No Ref-Primary, Physician Primary [...] Take 1 tablet by mouth daily Active [place]-3 Fatty Acids (OMEGA-3 FISH OIL PO) Take [...] AM CDT Pulse 66 06/24/2014 11:08 AM FINANCIAL SUPERVISOR Temperature 36.3 ??C (97.3 ??F) 03/08/2018 [...] on file Medical Devices Implanted Type Area State Game Protector Device Identifier Shelf Expiration Date Model / Serial / Lot Eye Imp Iol [place] 1-Piece Tecnis Toric +22.0 [id number] Implanted:Qty: 1 on 03/08/2018 by Pankaj Quiñones MD at [facility] Lens/Eye Implant Right: Eye [employer] 06/17/2021 [id number] / [id number] / Screw Implanted:Qty: 1 on 07/03/2014 by Javad Ray MD at [facility] Right: Foot KAYLEEN / [id number] / [id number] Description:1.9mm Emergency Screws 12mm screw length 2.7mm Locking Screw 14mml Implanted:Qty: 1 on 07/03/2014 by Javad Ray MD at [facility] Right: Foot KAYLEEN / [id number] / [id number] 050 Description:2.7 Locking Scre w T7 14mm 2.7mm Locking Screws 16mml Implanted:Qty: 2 on 07/03/2014 by Javad Ray MD at [facility] Right: Foot KAYLEEN / [id number] / [id number] 050 Description:2.7mm Locking Sc rews T7 16mm length 2.7mm Locking Screws 18mml Implanted:Qty: 1 on 07/03/2014 by Javad Ray MD at [facility] Right: Foot KAYLEEN / [id number] / [id number] 0506 Description:2.7mm Locking Sc rew T7 18mm length 2.7mm Non-Locking Screw 24mml Implanted:Qty: 1 on 07/03/2014 by Javad Ray MD at [facility] Right: Foot KAYLEEN / [id number] / [id number] 0506 Description:2.7mm Non- Locki ng Screw T7 24mm length K Wire .[id number] Implanted:Qty: 1 on 07/03/2014 by Javad Ray MD at [facility] Right: Foot Depuy / / [id number] Twist Drill Implanted:Qty: 1 on 07/03/2014 by Javad Ray MD at [facility] Right: Foot KAYLEEN / [id number] / [id number] 0506 Description:1.4 x 27mm AO Tw ist Drill Twist Drill 1.9 X 27mm Implanted:Qty: 1 on 07/03/2014 by Javad Ray MD at [facility] Right: Foot KAYLEEN / [id number] / [id number] 0506 Description:1.9x27mm AO Twis t Drill Countersinks 1.7mm 47mm Implanted:Qty: 1 on 07/03/2014 by Javad Ray MD at [facility] Right: Foot KAYLEEN / [id number] / [id number] 0506 Description:1.7mm screw, 47m m AO Countersinks Curved Plate 2.7mm Implanted:Qty: 1 on 07/03/2014 by Javad Ray MD at [facility] KAYLEEN / [id number] / [id number] 0506 Description:Curved Plate 2.7 mm 26mm length 4 holes Concave Reamer Implanted:Qty: 1 on 07/03/2014 by Javad Ray MD at [facility] Right: Foot KAYLEEN / [id number] 0507 Description:18mm Concave [place] darrius Remediation Project Engineer Implanted:Qty: 1 on 07/03/2014 by Javad Ray MD at [facility] Right: Foot KAYLEEN / [id number] Description:18mm Barrel Ream er Convex Reamer 18mm Implanted:Qty: 1 on 07/03/2014 by Javad Ray MD at [facility] Right: Foot KAYLEEN / [id number] 050 Description:18mm Convex Ream er Kwire Implanted:Qty: 2 on 07/03/2014 by Javad Ray MD at [facility] Right: Foot KAYLEEN / [id number] / [id number] 050 Description:K Wire Smooth, 1 .4 x 100mm Care Teams Stamping Mill Tender Relationship Specialty Start Date End Date No Ref-Primary, Physician PCP - General 03/08/18
--- OUTSIDE RECORDS SUMMARY | 2024-05-11 15:14 | XMS_ITS | Clinical Summary ---
Author Organization [facility] Address [address] [place] [address] Care Team Providers Care Forensic Analyst Name Role Phone None Reported, Pcp Primary Care Provider Unavail able Source Comments Patient records contain information from all sites at [facility]. For routine questions regarding patient records, call [phone] during business hours, M-F 8:00 AM - 5:00 PM Central Time. Record requests for emergency care only can be directed to [phone] at any time.[facility] Allergies Active Allergy Reactions Criticality Noted Date [...] Pain Chest 04/08/2019 Pain Shoulder Right 01/15/2019 Overview (01/15/2019): Added automatically from request for surgery [id number] Primary Osteoarthritis Shoulder Right 01/15/2019 Overview (01/15/2019): Added automatically from request for surgery [id number] Encounter For Other Orthopedic Aftercare 017 Nevus Pigmented 04/20/2017 Primary Osteoarthritis Knee Left 03/28/2017 Primary Osteoarthritis Knee Right 03/28/2017 Polyp Colon Adenomatous 10/30/2013 Overview (04/08/2019): Overview: Colonoscopy 10/2013 polyp repeat in 5 years Hyperlipidemia Diabetes Mellitus Type 2 Without Complication Hypothyroidism Insomnia Constipation Resolved Problems Problem Noted Date Diagnosed Date Resolved Date Pain Joint 06/18/2019 06/18/2019 Encounters Date Type Department Care Team Description 04/16/2024 10:01 AM CDT - 04/16/2024 11:59 PM CDT Hospital Encounter Department of Radiology in [address] [phone] Candice Lynch APRN, C.N.P., D.N.P. Pain Shoulder Right; Pain Shoulder Left Discharge Disposition: Home or Self Care 04/11/2024 Clinical Communication Department of Orthopedic Surgery in [address] [phone] Candice Lynch APRN, C.N.P., D.N.P. from Last 3 Months Immunizations Name Administration Dates Next Due H1N1 All Forms 09/04/2009 HZV (ZOSTAVAX) 12/30/2011 HepA Adult 12/15/2016,06/15/2016 Influenza high dose QV(65 ye ars or older) (PF) 11/03/2020,05/04/2020 MMR 11/30/2018 PCV13 07/15/2014 PPSV23 01/08/2016 RZV (SHINGRIX) 03/27/2019,01/16/2019 Td (Adult), adsorbed 07/05/1999 Tdap 03/22/2011 influenza trivalent high dos e (HD)(PF) 05/23/2019,05/15/2018,05/10/2016, 016,04/29/2014 influenza vaccine quad (FLUZONE/FLUARIX) (6 [...] drink = 0.6 oz pur e alcohol) [facility] OBMedicalities Answer Date Recorded In the past 12 months has [employer] electric, gas, oil, or water company threatened [...] your living situation today? I have a [facility] place to live 09/19/2023 Sex and Gender Information Value Date Recorded Sex Assigned at Not on file Gender Identity Not on file Sexual Orientation Straight 10/24/2022 2: 54 PM CDT Last Filed Vital Signs Vital Sign Reading Time Taken Comments Blood Pressure 136/76 08/24/2023 11:00 AM OYSTER BED WORKER Pulse 76 08/24/2023 11:00 AM OYSTER BED WORKER Temperature 36.2 ??C (97.2 ??F) 08/24/2023 10:[address] Respiratory Rate 14 08/24/2023 10:57 AM OYSTER BED WORKER Oxygen Saturation 98% 08/24/2023 10:57 AM OYSTER BED WORKER Inhaled Oxygen Concentration - - Weight 60 kg (132 lb 4.4 oz) 08/24/2023 10:57 AM OYSTER BED WORKER Height 162.8 cm (5' 4.09) 08/24/2023 10:[address] Body Mass Index 22.64 08/24/2023 10:57 AM OYSTER BED WORKER Plan of Treatment Upcoming Encounters Date Type Department Care Team (Late st Contact Info) Description 06/04/2024 2:30 PM CDT Office Visit Department of Orthopedic Surgery in [address] [phone] Candice Lynch, EDGAR, C.N.P., D.N.P. [address] [place] [phone] Discharge Disposition: Home or Self Care Health Maintenance Due Date Last Done Comments Diabetic Office Visit with F oot Exam 1945 Dilated Eye Exam 1945 Hepatitis C Screening 1945 Urine Albumin 1945 Visit: Chronic Disease, age 18+ 1946 Visit: Medicare Annual Wellness 1945 Hepatitis B Vaccines (1 of 3 - Risk 3-dose series) 2006 RSV vaccine - (32-3 6 weeks) or 60+ years (1 - 1-dose 75+ series) 2021 Depression Screening (Annual PHQ-2) 08/14/2023 Hemoglobin A1C 01/04/2024 07/06/2023, 03/20/2019 COVID-19 Vaccine (2023-2 5 season) 2024 09/11/2023, 08/21/2022, 05/12/2022, Additional history exists Creatinine Level (Kidney Fun ction Test) 08/24/2024 08/24/2023, 03/20/2019, 03/30/2018 Office Visit for Blood Press ure Check / Re-check 08/24/2024 08/24/2023 DTaP,Tdap,and Td Vaccines (3 - Td or Tdap) 03/14/2032 03/14/2022, 03/22/2011, 07/05/1999 Pneumococcal vaccine (65+ years) Completed 01/08/20 16, 07/15/2014 Hepatitis A Vaccines Completed 12/15/2016, 06/15/20 Zoster Vaccines Completed 03/27/2019, 12/2018, 12/30/2011 Fall Risk Screen (Annual) Completed 08/24/2023 Influenza Vaccine Completed 03/29/2024, , 05/27/2022, Additional history exists Medical Devices Implanted Type Area Leather Staker Device Identifier Shelf Expiration Date Model / Serial / Lot Hardware E.G. Pins/Screws/Ro ds Hardware e.g. pins/screws/ rods Left: Arm Hardware E.G. Pins/Screws/Ro ds Hardware e.g. pins/screws/ rods Right: Foot Knee Implant Knee Implant Left: Knee Bsplt Tib Trt Sz4 - [id number] Implanted:Qty: 1 on 07/05/2023 by Uriel Renner M.D. at [facility] Knee Implant Right: Knee [place] 03/06/2028 5536-B-40 0 / / [id number] Kn Fem Trt Rt Pors Sz-4 - [id number] Implanted:Qty: 1 on 07/05/2023 by Uriel Renner M.D. at [facility] Knee Implant Right: Knee Darvin 02/26/2028 5516-F-40 2 / / [id number] Pat Trt Sym Mtl 9x33 - [id number] Implanted:Qty: 1 on 07/05/2023 by Uriel Renner M.D. at [facility] Knee Implant Right: Knee Darvin 05/15/2028 5556-L-33 9 / / [id number] Ins Tib Trt Ps Sz4 10 - [id number] Implanted:Qty: 1 on 07/05/2023 by Uriel Renner M.D. at [facility] Knee Implant Right: Knee [place] 01/04/2028 5532-G-41 0-E / / [id number] Reunion Rsa 4.5mm /28mm Implanted:Qty: 1 on 06/18/2019 at [facility] Shoulder Implant [place] [id number] / / Reunion Rsa Screw 4.5/24mm Implanted:Qty: 1 on 06/18/2019 at [facility] Shoulder Implant [place] [id number] 03/16/2024 4035-3080 / / [id number] Reunuion Screw 4.5mm/16mm Implanted:Qty: 1 on 06/18/2019 at [facility] Shoulder Implant [place] [id number] 03/17/2024 1363-3347 / / [id number] Reunion Screw 4.5mm/24mm Implanted:Qty: 1 on 06/18/2019 at [facility] Shoulder Implant [place] [id number] 03/21/2023 4146-8769 / / [id number] Humeral Insert 32mm Implanted:Qty: 1 on 06/18/2019 at [facility] Shoulder Implant [place] 5571-S-32 04 / / Reunion Modular Humeral Stem Implanted:Qty: 1 on 06/18/2019 at [facility] Shoulder Implant [place] [id number] 10/16/2023 35936-L-6 011 / / [id number] Reunuin Rsa Humeral Cup 32mm/4mm Implanted:Qty: 1 on 06/18/2019 at [facility] Shoulder Implant [place]vin [id number] 03/09/2024 6361-9191 / / [id number] Reunion Rsa Center Screw 6.5mm Implanted:Qty: 1 on 06/18/2019 at [facility] Shoulder Implant [place] [id number] 03/23/2024 3535-0521 / / [id number] Reunion Rsa Concentric Glensphere Implanted:Qty: 1 on 06/18/2019 at [facility] Shoulder Implant Darvin [id number] 03/09/2024 5573-C-32 / [id number] Procedures Procedure Name Priority Date/Time Associated Diagnosis Comments DX SHOULDER BILATERAL 2+ VIEWS RAD - Routine (most inpatients and all outpatients) 04/16/2024 10:29 AM CDT Pain Shoulder Right Pain Shoulder Left BASIC METABOLIC PANEL, S/P Routine 08/24/2023 11:58 AM OYSTER BED WORKER Preoperative Exam HEMOGLOBIN A1C, B Routine 07/06/2023 5:5 2 AM OYSTER BED WORKER from Last 3 Months or Most Recently Relevant to Health Maintenance Results * DX Shoulder Bilateral 2+ Views [...] seen in the setting of calcific tendinitis. Edy Willis APRN.N.Gunjan, Martha.N.P. IMG DIAGNOSTIC IMAGING PROCEDURES * Basic Metabolic Panel (08/24/2023 11:58 AM OYSTER BED WORKER) Potassium, P 4.5 3.6 - 5.2 mmol/L 08/24/2023 12:27 PM OYSTER BED WORKER CNFL Sodium, P 136 135 - 145 mmol/L 08/24/2023 12:27 PM OYSTER BED WORKER CNFL Chloride, P 100 98 - 107 mmol/L 08/24/2023 12:27 PM OYSTER BED WORKER CNFL Bicarbonate, P 28 22 - 29 mmol/L 08/24/2023 12:27 PM OYSTER BED WORKER CNFL Anion Gap, P 8 7 - 15 08/24/2023 12:27 PM OYSTER BED WORKER CNFL BUN (Blood Urea Nitrogen), P 14 6 - 21 mg/dL 08/24/2023 12:27 PM OYSTER BED WORKER CNFL Creatinine 0.64 0.59 - 1.04 mg/dL 08/24/2023 12:27 PM OYSTER BED WORKER CNFL Estimated GFR (eGFR) >90 >=60 mL/min/BSA 08/24/2023 12:27 PM OYSTER BED WORKER CNFL Comment: Estimated GFR calculated using the 2020 CKD_EPI creatinine equation. Calcium, Total, P 10.0 8.8 - 10.2 mg/dL 08/24/2023 12:27 PM OYSTER BED WORKER CNFL Glucose, P 111 70 - 140 mg/dL 08/24/2023 12:27 PM OYSTER BED WORKER CNFL Blood (Blood, Venous) 08/24/2023 11:58 AM OYSTER BED WORKER 08/24/2023 12:00 PM OYSTER BED WORKER Candice Barcenas APRN, C.N.P. LAB BLOOD ADD -ON Performing Organization Address City/State/[facility] Co de Phone Number [facility] [address] [place] [address], [facility] in [address] [address] * (ABNORMAL) Hemoglobin A1c (07/06/2023 5:52 AM OYSTER BED WORKER) Hemoglobin A1c, B 7.2(H) 4.2 - 5.6 % 07/06/2023 6:50 AM OYSTER BED WORKER RDWG Comment: Hemoglobin A1c values greater than or equal to 6.5 percent are diagnostic for diabetes mellitus. ??Diagnosis should be confirmed by repeat testing. ??In diabetic patients, HbA1c goals should be discussed with healthcare provider. Blood (Blood, Venous) 07/06/2023 5:52 AM OYSTER BED WORKER 07/06/2023 6:30 AM OYSTER BED WORKER Uriel Renner M.D. LAB BLOOD ADD-ON [facility] [address] [place] [address], [facility] RDWG [facility] in [place] [address] [place] [address] from Last 3 Months or Most Recently Relevant to Health Maintenance Advance Directives For more information, please contact: [phone] Documents on File Type Date Recorded Patient Practical Ministries Professor Expl anation Advance Directives 07/07/2023 9:39 AM Robert Devlin HCPOA/ADVOCATE/AGENT/ FUNERAL PRE ARRANGEMENT SPECIALIST/SURROG ATE * Full Code (Latest Code Status [...] Second Alternate Health Care Agent Care Teams Forensic Analyst Relationship Specialty Start Date End Date None Reported, Pcp PCP - General Family Medicine 07/05/23
--- OUTSIDE RECORDS SUMMARY | 2024-05-11 15:14 | XMS_ITS | Referral Summary ---
Author Organization [facility] Address [address] [place] [address] Care Team Providers Care Cost Estimating Manager Name Role Phone None Reported, Pcp Primary Care Provider Unavail able Source Comments Patient records contain information from all sites at [facility]. For routine questions regarding patient records, call [phone] during business hours, M-F 8:00 AM - 5:00 PM Central Time. Record requests for emergency care only can be directed to [phone] at any time.[facility] Encounters Date Type Department Care Team Description 04/16/2024 10:01 AM CDT - 04/16/2024 11:59 PM CDT Hospital Encounter Department of Radiology in [address] [phone] Candice Lynch APRN, C.N.P., D.N.P. Pain Shoulder Right; Pain Shoulder Left Discharge Disposition: Home or Self Care 04/11/2024 Clinical Communication Department of Orthopedic Surgery in [address] [phone] Candice Lynch APRN, C.N.P., D.N.P. from Last 3 Months Allergies Active Allergy [...] (01/15/2019): Added automatically from request for surgery [id number] Primary Osteoarthritis Shoulder Right 01/15/2019 Overview (01/15/2019): Added automatically from request for surgery [id number] Encounter For Other Orthopedic Aftercare 017 Nevus [...] drink = 0.6 oz pur e alcohol) [facility] Utilities Answer Date Recorded In the [...] your living situation today? I have a [facility] place to live 09/19/2023 Sex and Gender Information Value Date Recorded Sex Assigned at Not on file Gender Identity Not on file Sexual Orientation Straight 10/24/2022 2: 54 PM CDT Last Filed Vital Signs Vital Sign Reading Time Taken Comments Blood Pressure 136/76 08/24/2023 11:00 AM HVAC SERVICES PROFESSIONAL Pulse 76 08/24/2023 11:00 AM HVAC SERVICES PROFESSIONAL Temperature 36.2 ??C (97.2 ??F) 08/24/2023 10:[address] Respiratory Rate 14 08/24/2023 10:57 AM HVAC SERVICES PROFESSIONAL Oxygen Saturation 98% 08/24/2023 10:57 AM HVAC SERVICES PROFESSIONAL Inhaled Oxygen Concentration - - Weight 60 kg (132 lb 4.4 oz) 08/24/2023 10:57 AM HVAC SERVICES PROFESSIONAL Height 162.8 cm (5' 4.09) 08/24/2023 10:[address] Body Mass Index 22.64 08/24/2023 10:57 AM HVAC SERVICES PROFESSIONAL Plan of Treatment Upcoming Encounters Date Type Department Care Team (Late st Contact Info) Description 06/04/2024 2:30 PM CDT Office Visit Department of Orthopedic Surgery in [address] [phone] Candice Lynch, EDGAR, C.N.P., D.N.P. [address] [place] [phone] Discharge Disposition: Home or Self Care Medical Devices Implanted Type Area Goodwill Representative Device Identifier Shelf Expiration Date Model / Serial / Lot Hardware E.G. Pins/Screws/Ro ds Hardware e.g. pins/screws/ rods Left: Arm Hardware E.G. Pins/Screws/Ro ds Hardware e.g. pins/screws/ rods Right: Foot Knee Implant Knee Implant Left: Knee Bsplt Tib Trt Sz4 - [id number] Implanted:Qty: 1 on 07/05/2023 by Uriel Renner M.D. at [facility] Knee Implant Right: Knee [place] 03/06/2028 5536-B-40 0 / / [id number] Kn Fem Trt Rt Pors Sz-4 - [id number] Implanted:Qty: 1 on 07/05/2023 by Uriel Renner M.D. at [facility] Knee Implant Right: Knee [place] 02/26/2028 5516-F-40 2 / / [id number] Pat Trt Sym Mtl 9x33 - [id number] Implanted:Qty: 1 on 07/05/2023 by Uriel Renner M.D. at [facility] Knee Implant Right: Knee [place] 05/15/2028 5556-L-33 9 / / [id number] Ins Tib Trt Ps Sz4 10 - [id number] Implanted:Qty: 1 on 07/05/2023 by Uriel Renner M.D. at [facility] Knee Implant Right: Knee [place] 01/04/2028 5532-G-41 0-E / / [id number] Reunion Rsa 4.5mm /28mm Implanted:Qty: 1 on 06/18/2019 at [facility] Shoulder Implant [place] [id number] / / Reunion Rsa Screw 4.5/24mm Implanted:Qty: 1 on 06/18/2019 at [facility] Shoulder Implant Darvin [id number] 03/16/2024 4838-8578 / / [id number] Reunuion Screw 4.5mm/16mm Implanted:Qty: 1 on 06/18/2019 at [facility] Shoulder Implant [place] [id number] 03/17/2024 2941-6375 / / [id number] Reunion Screw 4.5mm/24mm Implanted:Qty: 1 on 06/18/2019 at [facility] Shoulder Implant Darvin [id number] 03/21/2023 7112-0970 / / [id number] Humeral Insert 32mm Implanted:Qty: 1 on 06/18/2019 at [facility] Shoulder Implant Darvin 5571-S-32 04 / / Reunion Modular Humeral Stem Implanted:Qty: 1 on 06/18/2019 at [facility] Shoulder Implant Darvin [id number] 10/16/2023 28972-T-9 011 / / [id number] Reunuin Rsa Humeral Cup 32mm/4mm Implanted:Qty: 1 on 06/18/2019 at [facility] Shoulder Implant Darvin [id number] 03/09/2024 2171-3758 / / [id number] Reunion Rsa Center Screw 6.5mm Implanted:Qty: 1 on 06/18/2019 at [facility] Shoulder Implant Darvin [id number] 03/23/2024 0321-9718 / / [id number] Reunion Rsa Concentric Glensphere Implanted:Qty: 1 on 06/18/2019 at [facility] Shoulder Implant [place] [id number] 03/09/2024 5573-C-32 [id number] Procedures Procedure Name Priority Date/Time Associated Diagnosis Comments DX SHOULDER BILATERAL 2+ VIEWS RAD - Routine (most inpatients and all outpatients) 04/16/2024 10:29 AM CDT Pain Shoulder Right Pain Shoulder Left BASIC METABOLIC PANEL, S/P Routine 08/24/2023 11:58 AM HVAC SERVICES PROFESSIONAL Preoperative Exam HEMOGLOBIN A1C, B Routine 07/06/2023 5:5 2 AM HVAC SERVICES PROFESSIONAL from Last 3 Months or Most Recently [...] the setting of calcific tendinitis. Candice Lynch APRN, C.N.P., D.N.P. IMG DIAGNOSTIC IMAGING PROCEDURES * Basic Metabolic Panel (08/24/2023 11:58 AM HVAC SERVICES PROFESSIONAL) Potassium, P 4.5 3.6 - 5.2 mmol/L 08/24/2023 12:27 PM HVAC SERVICES PROFESSIONAL CNFL Sodium, P 136 135 - 145 mmol/L 08/24/2023 12:27 PM HVAC SERVICES PROFESSIONAL CNFL Chloride, P 100 98 - 107 mmol/L 08/24/2023 12:27 PM HVAC SERVICES PROFESSIONAL CNFL Bicarbonate, P 28 22 - 29 mmol/L 08/24/2023 12:27 PM HVAC SERVICES PROFESSIONAL CNFL Anion Gap, P 8 7 - 15 08/24/2023 12:27 PM HVAC SERVICES PROFESSIONAL CNFL BUN (Blood Urea Nitrogen), P 14 6 - 21 mg/dL 08/24/2023 12:27 PM HVAC SERVICES PROFESSIONAL CNFL Creatinine 0.64 0.59 - 1.04 mg/dL 08/24/2023 12:27 PM HVAC SERVICES PROFESSIONAL CNFL Estimated GFR (eGFR) >90 >=60 mL/min/BSA 08/24/2023 12:27 PM HVAC SERVICES PROFESSIONAL CNFL Comment: Estimated GFR calculated using the 2020 CKD_EPI creatinine equation. Calcium, Total, P 10.0 8.8 - 10.2 mg/dL 08/24/2023 12:27 PM HVAC SERVICES PROFESSIONAL CNFL Glucose, P 111 70 - 140 mg/dL 08/24/2023 12:27 PM HVAC SERVICES PROFESSIONAL CNFL Blood (Blood, Venous) 08/24/2023 11:58 AM HVAC SERVICES PROFESSIONAL 08/24/2023 12:00 PM HVAC SERVICES PROFESSIONAL Candice Barcenas APRN, C.N.P. LAB BLOOD ADD -ON [facility] [address] [place] [address], [facility] in [address] [address] * (ABNORMAL) Hemoglobin A1c (07/06/2023 5:52 AM HVAC SERVICES PROFESSIONAL) Hemoglobin A1c, B 7.2(H) 4.2 - 5.6 % 07/06/2023 6:50 AM HVAC SERVICES PROFESSIONAL RDWG Comment: Hemoglobin A1c values greater than or equal to 6.5 percent are diagnostic for diabetes mellitus. ??Diagnosis should be confirmed by repeat testing. ??In diabetic patients, HbA1c goals should be discussed with healthcare provider. Blood (Blood, Venous) 07/06/2023 5:52 AM HVAC SERVICES PROFESSIONAL 07/06/2023 6:30 AM HVAC SERVICES PROFESSIONAL Uriel Renner M.D. LAB BLOOD ADD-ON [facility] [address] [place] [address], [facility] RDWG [facility] in [place] [address] [place] [address] from Last 3 Months or Most Recently Relevant to Health Maintenance Advance Directives For more information, please contact: [phone] Documents on File Type Date Recorded Patient Bonding Machine Tender Expl anation Advance Directives 07/07/2023 9:39 AM Robert Devlin HCPOA/ADVOCATE/AGENT/ NODE JS DEVELOPER/SURROG ATE * Full Code (Latest Code Status [...] Second Alternate Health Care Agent Care Teams Cost Estimating Manager Relationship Specialty Start Date End Date None Reported, Pcp PCP - General Family Medicine 07/05/23
--- OUTSIDE RECORDS SUMMARY | 2024-05-11 15:14 | XMS_ITS | Clinical Summary ---
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7mm Locking Screw 14mml Implanted:Qty: 1 on 07/03/2014 by Javad Ray MD at [facility] Right: Foot KAYLEEN / [id number] / [id number] 050 Description:2.7 Locking Scre w T7 14mm 2.7mm Locking Screws 16mml Implanted:Qty: 2 on 07/03/2014 by Javad Ray MD at [facility] Right: Foot KAYLEEN / [id number] / [id number] 050 Description:2.7mm Locking Sc rews T7 16mm length 2.7mm Locking Screws 18mml Implanted:Qty: 1 on 07/03/2014 by Javad Ray MD at [facility] Right: Foot KAYLEEN / [id number] / [id number] 0506 Description:2.7mm Locking Sc rew T7 18mm length 2.7mm Non-Locking Screw 24mml Implanted:Qty: 1 on 07/03/2014 by Javad Ray MD at [facility] Right: Foot KAYLEEN / [id number] / [id number] 0506 Description:2.7mm Non- Locki ng Screw T7 24mm length K Wire .062 Implanted:Qty: 1 on 07/03/2014 by Javad Ray MD at [facility] Right: Foot Depuy / / [id number] Twist Drill Implanted:Qty: 1 on 07/03/2014 by Javad Ray MD at [facility] Right: Foot KAYLEEN / [id number] / [id number] 0506 Description:1.4 x 27mm AO Tw ist Drill Twist Drill 1.9 X 27mm Implanted:Qty: 1 on 07/03/2014 by Javad Ray MD at [facility] Right: Foot KAYLEEN / [id number] / [id number] 0506 Description:1.9x27mm AO Twis t Drill Countersinks 1.7mm 47mm Implanted:Qty: 1 on 07/03/2014 by Javad Ray MD at [facility] Right: Foot KAYLEEN / [id number] / [id number] 0506 Description:1.7mm screw, 47m m AO Countersinks Curved Plate 2.7mm Implanted:Qty: 1 on 07/03/2014 by Javad Ray MD at [facility] KAYLEEN / [id number] / [id number] 0506 Description:Curved Plate 2.7 mm 26mm length 4 holes Concave Reamer Implanted:Qty: 1 on 07/03/2014 by Javad Ray MD at [facility] Right: Foot KAYLEEN / [id number] 0507 Description:18mm Concave Tipton darrius Spool Worker Implanted:Qty: 1 on 07/03/2014 by Javad Ray MD at [facility] Right: Foot KAYLEEN / [id number] Description:18mm Barrel Ream er Convex Reamer 18mm Implanted:Qty: 1 on 07/03/2014 by Javad Ray MD at [facility] Right: Foot KAYLEEN / [id number] 050 Description:18mm Convex Ream er Kwire Implanted:Qty: 2 on 07/03/2014 by Javad Ray MD at [facility] Right: Foot KAYLEEN / [id number] / [id number] 050 Description:K Wire Smooth, 1 .4 x 100mm Care Teams Paint Preparer Relationship Specialty Start Date End Date No Ref-Primary, Physician PCP - General 03/08/18
--- OUTSIDE RECORDS SUMMARY | 2024-05-11 15:14 | XMS_ITS ---
Author Organization [facility] Address [address] [place] [address] Care Team Providers Care Senior Java Software Engineer Name Role Phone Unavailable Unavailable Unavailable Surgery Details Not on file Complications Check Surgery Details section. Procedure Estimated Blood Loss Check Surgery Details section. Procedure Findings Check Surgery Details section. Procedure Specimens Taken Check Surgery Details section.
--- OUTSIDE RECORDS SUMMARY | 2024-05-11 15:14 | XMS_ITS | Encounter Summary ---
Author Organization [facility] Address [address] [place] [address] Care Team Providers Care Respiratory Care Instructor Name Role Phone None Reported, Pcp Primary Care Provider Unavail able Reason for Referral * Outpatient (Routine) - Closed Specialty Diagnoses / Procedures Referred By Contac t Referred To Contact Diagnoses Pain Shoulder Right Pain Shoulder Left Procedures DX Shoulder Bilateral 2+ Views Candice Lynch APRN, C.N.P., D.N.P. [address] [place] [address] [facility] Region Referral ID Status Reason Start Date Expiration Date Visits Re quested Visits Authorized [id number] Closed 04/11/2024 04/11/2025 1 1 Reason for Visit * Outpatient (Routine) - Closed Specialty Diagnoses / Procedures Referred By Contac t Referred To Contact Diagnoses Pain Shoulder Right Pain Shoulder Left Procedures DX Shoulder Bilateral 2+ Views Candice Lynch APRN, C.N.P., D.N.P. [address] [place] [address] [facility] Region Referral ID Status Reason Start Date Expiration Date Visits Re quested Visits Authorized [id number] Closed 04/11/2024 04/11/2025 1 1 Encounter Details Date Type Department Care Team (Latest Contact Info) Description 04/16/2024 10:01 AM CDT - 04/16/2024 11:59 PM CDT Hospital Encounter Department of Radiology in [address] [phone] Candice Lynch, EDGAR, C.N.P., D.N.P. [address] [place] [phone] Pain Shoulder Right; Pain Shoulder Left Discharge Disposition: Home or Self Care Social History Tobacco Use Types Packs/Day Years Used Date Smoking Tobacco: Former Cigarettes Smokeless Tobacco: Never Alcohol Use Standard Drinks/Week Comments Not Currently 0 (1 standard drink = 0.6 oz pur e alcohol) [facility] Utilities Answer Date Recorded In the past 12 months has [employer], gas, oil, or water [employer] threatened to shut off services in your [...] your living situation today? I have a [facility] place to live 09/19/2023 Sex and [...] by mouth every 6 (six) hours. 07/05/2023 metFORMIN XR (GLUCOPHAGE-XR) 500 mg 24 hr tablet Take 1,000 mg by mouth 2 (two) times a day. rosuvastatin (CRESTOR) 5 mg tablet Take 5 mg by mouth at bedtime. 3 06/04/2019 documented as of this encounter Plan of Treatment Upcoming Encounters Date Type Department Care Team (Late st Contact Info) Description 06/04/2024 2:30 PM CDT Office Visit Department of Orthopedic Surgery in [address] [phone] Candice Lynch, EDGAR, C.N.P., D.N.P. [address] [facility] [place] [phone] Discharge Disposition: Home or Self Care documented as of this encounter Procedures Procedure Name Priority Date/Time Associated Diagnosis Comments DX SHOULDER BILATERAL 2+ VIEWS RAD - Routine (most inpatients and all outpatients) 04/16/2024 10:29 AM CDT Pain Shoulder Right Pain Shoulder Left documented in this encounter Results * DX Shoulder Bilateral [...] APRN, C.N.P., D.N.P. IMG DIAGNOSTIC IMAGING PROCEDURES documented in this encounter Visit Diagnoses Diagnosis Pain Shoulder Right Pain Shoulder Left documented in this encounter Care Teams Respiratory Care Instructor Relationship Specialty Start Date End Date None Reported, Pcp PCP - General Family Medicine 07/05/23 documented as of this encounter
== END 2024-05-07 10:26 | disposition home or self-care (01) ==
LOC: NFLDREF 05-11 15:11
PROVIDERS: PCP Family Medicine; Referring Provider Family Medicine; Visit Provider Family Medicine
DX: E11.65 Type 2 diabetes mellitus with hyperglycemia (principal); E03.9 Hypothyroidism, unspecified; E78.5 Hyperlipidemia, unspecified; R03.0 Elevated blood-pressure reading, without diagnosis of hypertension; E53.8 Deficiency of other specified B group vitamins; D64.9 Anemia, unspecified
CPT/HCPCS: 80053; 80061; 82043; 82570; 82607; 84443

== ENCOUNTER 2024-06-06 14:14 | Outpatient (CLI) | payer MEDICARE, BC, SELFPAY ==
--- OUTSIDE RECORDS SUMMARY | 2024-06-06 14:17 | XMS_ITS | Continuity of Care Document ---
Author Organization [facility] Address [address] [place] [address] Phone Care Team Providers Care Mineral Mixer Name Role Phone Clarence COBB, PhD, Aureliano Moser Unavai lable Allergies, Adverse Reactions, Alerts Substance Reaction Status Criticality codeine Active No Information Procedures Procedure Date Office/Outpatient Visit,[facility] 2023 Advance Directives Directive Yes / No Effective Date File Name No Information Encounters Encounter Description Practice Location Reason(s) For Visit Diagnoses Date Provider Providers Copied on Encounter [facility], [address], [place], [place], [id number], [place] tel:[phone] No Information Clarence Bedoya. [facility] [place], [address], [place], [address], [place]. tel:[phone] Office/Outpat ient Visit, [facility], [address], [place], [place], [id number], [place] tel:[phone] [facility] Low back pain Clarence Bedoya. [facility], [address], [place], [address], [place]. tel:[phone] Referring Provider: Aureliano Lima, [facility] [address], [place], [address]. tel:[phone] Family History Family Member Type Diagnosis Age At Onset No Information Payers Payer name Insurance type Covered constitution party [place] [id number] Medicare [facility] [id number] 1 Social History Type Description Quantity Date Captured [...]
--- OUTSIDE RECORDS SUMMARY | 2024-06-06 14:18 | XMS_ITS | Encounter Summary ---
Author Organization [facility] Address [address] [place] [address] Care Team Providers Care Aluminum Sheet Cutter Name Role Phone None Reported, Pcp Primary Care Provider Unavail able Reason for Referral * Outpatient (Routine) - Closed Specialty Diagnoses / Procedures Referred By Contac t Referred To Contact Diagnoses Pain Shoulder Left Procedures DX Shoulder Left 2+ Views Precious Estrada M.D. [address] [place] [phone] Phone: tel: fax: [facility] Region Referral ID Status Reason Start Date Expiration Date Visits Re quested Visits Authorized [id number] Closed 05/20/2024 05/20/2025 1 1 Reason for Visit * Outpatient (Routine) - Closed Specialty Diagnoses / Procedures Referred By Carley shields Referred To Contact Diagnoses Pain Shoulder Left Procedures DX Shoulder Left 2+ Views Precious Estrada M.D. [address] [place] [phone] Phone: tel: [facility] Region Referral ID Status Reason Start Date Expiration Date Visits Re quested Visits Authorized [id number] Closed 05/20/2024 05/20/2025 1 1 Encounter Details Date Type Department Care Team (Latest Contact Info) Description 05/20/2024 11:27 AM CDT - 05/20/2024 11:59 PM CDT Hospital Encounter Department of Radiology in [address] [phone] Precious Estrada M.D. [address] [place] [phone] Pain Shoulder Left Discharge Disposition: Home or Self Care Social History Tobacco Use Types Packs/Day Years Used Date Smoking Tobacco: Former Cigarettes Smokeless Tobacco: Never Alcohol Use Standard Drinks/Week Comments Not Currently 0 (1 standard drink = 0.6 oz pur e alcohol) [facility] Utilities Answer Date Recorded In the [...] Family Three times a week 04/11/2019 Attends Sikh Services Not on file 04/11 Active Member [...] PHQ-2 Answer Date Recorded PHQ-2 Score 0 05/20/2024 Exercise Vital Sign Answer Date Recorde d [...] living? No 09/19/2023 Nutrition Answer Date Recorded On average, how many serving s of fruits and vegetables do you eat per day (serving size is equal to 1 cup or approximately the size of a tennis ball)? 3-5 09/19/2023 Dental Answer Date Recorded Dental: Regular Dentist Yes 09/19/19 Employment Answer Date Recorded Employment status Retired 09/19/2023 Housing Stability Answer Date Recorded What is your living situation today? 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 07/05/2023 gabapentin (Neurontin) 100 mg capsule Take 1 capsule by mouth 3 (three) times a day. 05/06/2024 metFORMIN XR (GLUCOPHAGE-XR) 500 mg 24 hr tablet Take 1,000 mg by mouth 2 (two) times a day. rosuvastatin (CRESTOR) 5 mg tablet Take 5 mg by mouth at bedtime. 3 06/04/2019 documented as of this encounter Plan of Treatment Not on file documented as of this encounter Procedures Procedure Name Priority Date/Time Associated Diagnosis Comments DX SHOULDER LEFT 2+ VIEWS RAD - Routine (most inpatients and all outpatients) 05/20/2024 11:46 AM CDT Pain Shoulder Left documented in this encounter Results * DX Shoulder Left 2+ Views (05/20/2024 11:46 AM CDT) Anatomical Region Laterality Modality Upper Extremity, Shoulder, M usculoskeletal RST LOS, Musculoskeletal ARZ LOS, Muskuloskeletal FLA LOS Left Digit al Radiography Impressions 05/20/2024 11:54 AM CDT No evidence of acute fracture or malalignment. Calcific tendinosis of the superior rotator cuff. Prior distal clavicular resection. Mild glenohumeral degenerative change. April 16, 2024 comparison. Narrative 05/20/2024 11:54 AM CDT EXAM: DX SHOULDER LEFT 2+ VIEWS Procedure Note Lowell Pinzon M.D. - 05/20/2024 EXAM: DX SHOULDER LEFT 2+ VIEWS IMPRESSION: No evidence of acute fracture or malalignment. Calcific tendinosis of thesuperior rotator cuff. Prior distal clavicular resection. Mildglenohumeral degenerative change. April 16, 2024 comparison. Precious Estrada M.D. [facility] PRO CEDURES Final Result documented in this encounter Visit Diagnoses Diagnosis Pain Shoulder Left documented in this encounter Care Teams Aluminum Sheet Cutter Relationship Specialty Start Date End Date None Reported, Pcp PCP - General Family Medicine 07/05/23 documented as of this encounter
--- OUTSIDE RECORDS SUMMARY | 2024-06-06 14:18 | XMS_ITS | Encounter Summary ---
Author Organization [facility] Address [address] [place] [address] Care Team Providers Care Canine Service Instructor Trainer Name Role Phone None Reported, Pcp Primary Care Provider Unavail able Reason for Referral * MRI/CAT/PET Scan (Routine) - Closed Specialty Diagnoses / Procedures Referred By Contac t Referred To Contact Radiology Diagnoses Pain Shoulder Left Procedures MR Shoulder Left without IV Contrast Precious Estrada M.D. [address] [place] [phone] Phone: tel: fax: [facility] Region Referral ID Status Reason Start Date Expiration Date Visits Re quested Visits Authorized [id number] Closed 05/20/2024 05/20/2025 1 1 Reason for Visit * MRI/CAT/PET Scan (Routine) - Closed Specialty Diagnoses / Procedures Referred By Contac t Referred To Contact Radiology Diagnoses Pain Shoulder Left Procedures MR Shoulder Left without IV Contrast Precious Estrada M.D. [address] [place] [phone] Phone: tel: fax: [facility] Region Referral ID Status Reason Start Date Expiration Date Visits Re quested Visits Authorized [id number] Closed 05/20/2024 05/20/2025 1 1 Encounter Details Date Type Department Care Team (Latest Contact Info) Description 05/30/2024 2:43 PM CDT - 05/30/2024 11:59 PM CDT Hospital Encounter Department of Radiology in [address] [phone] Precious Estrada M.D. [address] [place] [phone] Pain Shoulder Left Discharge Disposition: Home or Self Care Social History Tobacco Use Types Packs/Day Years Used Date Smoking Tobacco: Former Cigarettes Smokeless Tobacco: Never Alcohol Use Standard Drinks/Week Comments Not Currently 0 (1 standard drink = 0.6 oz pur e alcohol) [facility] Utilities Answer Date Recorded In the past 12 months has e electric, gas, oil, or water company threatened to shut off services in your home? No 09/19/2023 Social Connection and Isolat ion Panel [NHANES] Answer Date Recorded Frequency of Communication w ith Friends and Family More than three times a week 04/11/2019 Frequency of Social Gatherin gs with Friends and Family Three times a week 04/11/2019 Attends [employer] Services Not on file 04/11 Active Member [...] your living situation today? [facility] 09/19/2023 Comments No Sex and Gender Information Value Date Recorded Sex Assigned at Not on file Legal Sex Female 4:53 PM [employer] Gender Identity Not on file Sexual Orientation [...] Name Priority Date/Time Associated Diagnosis Comments MR SHOULDER LEFT WITHOUT IV CONTRAST RAD - Routine (most inpatients and all outpatients) 05/30/2024 3:25 PM CDT Pain Shoulder Left documented in this encounter Results * MR Shoulder Left without IV Contrast (05/30/2024 3:25 PM CDT) Anatomical Region Laterality Modality Upper Extremity, Shoulder, M usculoskeletal RST LOS, Musculoskeletal ARZ LOS, Muskuloskeletal FLA LOS Left Magne tic Resonance Impressions 05/31/2024 8:22 AM CDT 1. Rupture of the intra-articular portion of the long head of the biceps tendon with retraction of the tendon approximately 8.6 cm below the apex of the humeral head. 2. Surgical changes of rotator cuff repair without evidence of free tear. -Moderate tendinosis of the supraspinatus with bursal sided fraying. -Moderate to severe tendinosis of the infraspinatus with bursal sided fraying. -Mild tenderness of the subscapularis without tear. -Teres minor is within normal limits. 3. Moderate subacromial subdeltoid bursitis. 4. Small glenohumeral joint effusion and synovitis. 5. SLAP tear. Narrative 05/31/2024 8:22 AM CDT EXAM: MR SHOULDER LEFT WITHOUT IV CONTRAST COMPARISON:Shoulder radiographs 05/20/2024. FINDINGS: FINDINGS: Rotator cuff: Surgical changes and rotator cuff repair. Moderate tendinosis of the supraspinatus with bursal sided fraying along the mid and posterior fibers. There is moderate to severe tendinosis of the infraspinatus with bursal sided fraying involving the posterior fibers. Teres minor is intact. Mild tendinosis of the subscapularis without tear. Bursa: Fluid distention of the subacromial subdeltoid bursa, compatible with subacromial subdeltoid bursitis. Musculature: Mild fatty atrophy of the supraspinatus and infraspinatus muscle belly. Acromioclavicular joint: There are mild degenerative changes of the acromioclavicular joint. A type 2 acromion configuration is noted. There is no anterior or lateral acromial downsloping. Bones: There are no fractures or regions of abnormal bone marrow signal intensity. Biceps tendon: There is rupture of the long head of the biceps tendon with retraction approximately 8.6 cm below the apex of the humeral head (series 3, image 25). Glenohumeral joint: Small glenohumeral joint effusion and synovitis. Cartilage and bone: Articular cartilage thinning throughout the superior glenoid and apex of the humeral head without focal defect. No Hill-Sachs, reverse Hill- Sachs, or bony Bankart lesions are seen. Labrum: SLAP tear the 11 to 1:00 position. No soft tissue Bankart lesions. No paralabral cysts are seen. Support structures: No capsular or ligamentous abnormality is seen. Other findings None. Procedure Note Fauzia Chow D.O. - 05/31/2024 EXAM: MR SHOULDER LEFT WITHOUT IV CONTRAST COMPARISON:Shoulder radiographs 05/20/2024. FINDINGS: FINDINGS: Rotator cuff: Surgical changes and rotator cuff repair. Moderatetendinosis of the supraspinatus with bursal sided fraying along the midand posterior fibers. There is moderate to severe tendinosis of theinfraspinatus with bursal sided fraying involving the posterior fibers. Teres minor is intact. Mild tendinosis of thesubscapularis without tear. Bursa: Fluid distention of the subacromial subdeltoid bursa, compatiblewith subacromial subdeltoid bursitis. Musculature: Mild fatty atrophy of the supraspinatus and infraspinatusmuscle belly. Acromioclavicular joint: There are mild degenerative changes of theacromioclavicular joint. A type 2 acromion configuration is noted. Thereis no anterior or lateral acromial downsloping. Bones: There are no fractures or regions of abnormal bone marrow signalintensity. Biceps tendon: There is rupture of the long head of the biceps tendon withretraction approximately 8.6 cm below the apex of the humeral head (series3, image 25). Glenohumeral joint: Small glenohumeral joint effusion and synovitis. Cartilage and bone: Articular cartilage thinning throughout the superiorglenoid and apex of the humeral head without focal defect. No Hill-Sachs,reverse Hill-Sachs, or bony Bankart lesions are seen. Labrum: SLAP tear the 11 to 1:00 position. No soft tissue Bankart lesions.No paralabral cysts are seen. Support structures: No capsular or ligamentous abnormality is seen. Other findings None. IMPRESSION: 1. Rupture of the intra-articular portion of the long head of the bicepstendon with retraction of the tendon approximately 8.6 cm below the apexof the humeral head. 2. Surgical changes of rotator cuff repair without evidence of freetear. -Moderate tendinosis of the supraspinatus with bursal sided fraying. -Moderate to severe tendinosis of the infraspinatus with bursal sidedfraying. -Mild tenderness of the subscapularis without tear. -Teres minor is within normal limits. 3. Moderate subacromial subdeltoid bursitis. 4. Small glenohumeral joint effusion and synovitis. 5. SLAP tear. Precious VILLANUEVA MRI PROCEDURES Final R esult documented in this encounter Visit Diagnoses Diagnosis Pain Shoulder Left documented in this encounter Care Teams Canine Service Instructor Trainer Relationship Specialty Start Date End Date None Reported, Pcp PCP - General Family Medicine 07/05/23 documented as of this encounter
--- OUTSIDE RECORDS SUMMARY | 2024-06-06 14:18 | XMS_ITS | Clinical Summary ---
Author Organization [facility] Address [place] [address] Care Team Providers Care Telehealth Coordinator Name Role Phone Vanessa García MD Primary [...] by mouth three times daily. 270 Capsule 05/06/2024 Active Active Problems Problem Noted Date Diagnosed Date Dyslipidemia 04/12/2019 s/p left total knee arthroplasty 04/20/17 04/24/20 Type 2 diabetes mellitus 04/20/2017 Hypothyroid 04/20/2017 Atypical mole 04/20/2017 Primary osteoarthritis of left knee 03/28/2017 Primary osteoarthritis of right knee 03/28/2017 Adenomatous colon polyp 10/30/2013 Overview (10/30/2013): Colonoscopy 10/2013 polyp repeat in 5 years Encounters Date Type Department Care Team Description 05/06/2024 Telephone [facility] Joint Replacement [facility] [address] [facility] [address] [place] [phone] Mariann Winn PA Refill Request (GABAPENTIN 100 MG CAPSULES) 04/08/2024 Telephone [facility] Joint Replacement [facility] [address] [facility] [address] [place] [phone] Mariann Winn PA Need Meds from Last [...] Comments Blood Pressure 107/65 09/09/2020 11:02 AM HUMAN RESOURCES RECRUITER Pulse 77 09/09/2020 11:02 AM HUMAN RESOURCES RECRUITER Temperature 36.4 ??C (97.5 ??F) 06/24/2020 2:38 PM CS T Respiratory Rate 16 04/22/2017 7:38 AM CDT Oxygen Saturation 98% 09/09/2020 11:02 AM HUMAN RESOURCES RECRUITER Inhaled Oxygen Concentration - - Weight 68.1 kg (150 lb 1.6 oz) 09/09/2020 11:02 AM HUMAN RESOURCES RECRUITER Height 162.6 cm (5' 4.02) 04/18/2018 11:26 [...] 04/18/2018, 04/18/2017, 03/29/2017 Tetanus booster 03/22/2021 03/22/2011, 08/04/2011, 07/05/1999 RSV vaccine for adults or pr egnancy (1 - 1-dose 75+ series) 2021 COVID-19 vaccine series ( season) 2024 Influenza for age 65+ 04/14/2024 04/29/2014 Tdap Completed 03/22/2011 Medical Devices Implanted Type Area Gusset Edger Device Identifier Shelf Expiration Date Model / Serial / Lot Patella Sz32 Miriam Ii Rnd Penon Pors - [id number] Implanted:Qty: 1 on 04/20/2017 by Barrie Contreras MD at [facility] Total Joint Left: Patella [employer] 01/11/2027 [id number] # / / [id number] Lens Iol 22 Tecnis - [id number] Implanted:Qty: 1 on 10/13/2015 by Evan Walker MD at [facility] Left: Eye [employer] 07/07/2020 [id number] / [id number] / Cmnt Bone Simplex Atb Tobramycin - [id number] Implanted:Qty: 1 on 04/20/2017 by Barrie Contreras MD at [facility] Left: Knee [employer] 08/13/2018 6197-9-00 1# / / [id number] Cmnt Bone Simplex Atb Tobramycin - [id number] Implanted:Qty: 1 on 04/20/2017 by Barrie Contreras MD at [facility] Left: Knee [employer] 08/13/2018 6197-9-00 1# / / [id number] Baseplate Tib Lt Sz2 Miriam Ii Titnm Non Pors - [id number] Implanted:Qty: 1 on 04/20/2017 by Barrie Contreras MD at [facility] Left: Tibia [employer] 03/04/2027 [id number] # / / [id number] Fem Lt Sz4n Legion Narrow Croxin - [id number] Implanted:Qty: 1 on 04/20/2017 by Barrie Contreras MD at [facility] Left: Femur [employer] 12/05/2026 [id number]# / / [id number] Insert Knee Sz1-2 12mm Legion Cruc Ret High Flex Xlpe - [id number] Implanted:Qty: 1 on 04/20/2017 by Barrie Contreras MD at [facility] Left: Tibia [employer] 07/13/2024 [id number] / / [id number] Advance Directives * Full Code (Latest Code [...] 12:27 PM 02/18/2015 3:02 PM Care Teams Telehealth Coordinator Relationship Specialty Start Date End Date Vanessa García MD [address] [place] [address] PCP - General Family Practice 10/07/15
--- OUTSIDE RECORDS SUMMARY | 2024-06-06 14:18 | XMS_ITS ---
Author Organization [facility] Address [address] [place] [id number] Care Team Providers Care Preventive Maintenance Coordinator Name Role Phone Unavailable Unavailable Unavailable Surgery Details Not on file Complications Check Surgery Details section. Procedure Estimated Blood Loss Check Surgery Details section. Procedure Findings Check Surgery Details section. Procedure Specimens Taken Check Surgery Details section.
--- OUTSIDE RECORDS SUMMARY | 2024-06-06 14:18 | XMS_ITS | Clinical Summary ---
Author Organization [facility] Address [address] [place] [address] Care Team Providers Care Retort Fireman Name Role Phone None Reported, Pcp Primary Care Provider Unavail able Source Comments Patient records contain information from all sites at [facility]. For routine questions regarding patient records, call [phone] during business hours, M-F 8:00 AM - 5:00 PM Central Time. Record requests for emergency care only can be directed to [phone] at any time.[facility] Allergies Active Allergy Reactions Criticality Noted Date Comments Atorvastatin Myalgia Low 04/13/2017 Codeine Nausea And Vomiting, Nausea Only,GI intolerance Low 03/22/2011 Ezetimibe Myalgia Low 04/13/2017 Pravastatin Other (see comments) Low 04/05/2019 Body aches Medications rosuvastatin (CRESTOR) 5 mg tablet Take 5 [...] mouth 2 (two) times a day. Active gabapentin (Neurontin) 100 mg capsule Take 1 capsule by mouth 3 (three) times a day. 05/06/2024 Active Active Problems Problem Noted Date Diagnosed Date History Of Falling 08/24/2023 Pain Knee Right 08/22/2023 Arthroplasty Total Shoulder Replacement Status P ost Right 06/18/2019 Pain Chest 04/08/2019 Pain Shoulder Right 01/15/2019 Overview (01/15/2019): Added automatically from request for surgery [id number] Primary Osteoarthritis Shoulder Right 01/15/2019 Overview (01/15/2019): Added automatically from request for surgery [id number] Encounter For Other Orthopedic Aftercare 017 Nevus Pigmented 04/20/2017 Primary Osteoarthritis Knee Left 03/28/2017 Primary Osteoarthritis Knee Right 03/28/2017 Polyp Colon Adenomatous 10/30/2013 Overview (04/08/2019): Overview: Colonoscopy 10/2013 polyp repeat in 5 years Hyperlipidemia Diabetes Mellitus Type 2 Without Complication Hypothyroidism Insomnia Constipation Resolved Problems Problem Noted Date Diagnosed Date Resolved Date Pain Joint 06/18/2019 06/18/2019 Encounters Date Type Department Care Team Description 06/04/2024 2:30 PM CDT Office Visit Department of Orthopedic Surgery in [address] [phone] Candice Lynch APRN, C.N.P., D.N.P. Pain Shoulder Left (Primary Dx) Discharge Disposition: Home or Self Care 05/30/2024 2:43 PM CDT - 05/30/2024 11:59 PM CDT Hospital Encounter Department of Radiology in [address] [phone] Precious Estrada M.D. Pain Shoulder Left Discharge Disposition: Home or Self Care 05/20/2024 11:27 AM CDT - 05/20/2024 11:59 PM CDT Hospital Encounter Department of Radiology in [address] [phone] Precious Estrada M.D. Pain Shoulder Left Discharge Disposition: Home or Self Care 05/20/2024 11:00 AM CDT Office Visit Department of Family Medicine, [facility], in [address] [phone] Precious Estrada M.D. Pain Shoulder Left (Primary Dx); Diabetes Mellitus Type 2 Without Complication (HCC) Discharge Disposition: Home or Self Care 05/20/2024 Nurse Triage Department of Family Medicine, [facility], in [place], [place] [address] [place] [address] Amanda Finn R.N. Arm Injury 04/16/2024 10:01 AM CDT - 04/16/2024 11:59 PM CDT Hospital Encounter Department of Radiology in [address] [phone] Candice Lynch APRN, C.N.P., D.N.P. Pain Shoulder Right; Pain Shoulder Left Discharge Disposition: Home or Self Care 04/11/2024 Clinical Communication Department of Orthopedic Surgery in [place], [place] [address] [place] [phone] Candice Lynch APRN, C.N.P., D.N.P. from Last 3 Months Immunizations Name Administration Dates Next Due H1N1 All Forms 09/04/2009 HZV (ZOSTAVAX) 12/30/2011 HepA Adult 12/15/2016,06/15/2016 Influenza high dose QV(65 ye ars or older) (PF) 05/12/2023,05/27/2022,04/25/2021, 021,05/04/2020 MMR 11/30/2018 PCV13 07/15/2014 PPSV23 01/08/2016 RZV (SHINGRIX) 03/27/2019,01/16/2019 SARS-COV-2 (COVID-19),NON-US,Unspecified(HISTOR ICAL) 09/11/2023 Td (Adult), adsorbed 07/05/1999 Tdap 03/14/2022,03/22/2011 influenza trivalent high dos e (HD)(PF) 03/29/2024,05/23/2019,05/15/2018, 016,09/09/2015,04/29/2014 influenza vaccine quad (FLUZONE/FLUARIX) (6 months and older)(PF) 04/26/2017,09/04/2009 Family History Medical History Relation Name Comments [...] drink = 0.6 oz pur e alcohol) [employer] Utilities Answer Date Recorded In the past [...] Family Three times a week 04/11/2019 Attends [employer] Services Not on file 04/11 Active Member [...] your living situation today? I have a [facility] place to live 09/19/2023 Comments No Sex and Gender Information Value Date Recorded Sex Assigned at Not on file Legal Sex Female 4:53 PM FINISHER WALLBOARD AND PLASTERBOARD Gender Identity Not on file Sexual Orientation Straight 10/24/2022 2: 54 PM CDT Last Filed Vital Signs Vital Sign Reading Time Taken Comments Blood Pressure 137/85 05/20/2024 10:58 AM CDT Pulse 67 05/20/2024 10:58 AM CDT Temperature 36 ??C (96.8 ??F) 05/20/2024 10:58 AM CDT Respiratory Rate 14 08/24/2023 10:57 AM FINISHER WALLBOARD AND PLASTERBOARD Oxygen Saturation 98% 05/20/2024 10:58 AM CDT Inhaled Oxygen Concentration - - Weight 62.6 kg (138 lb 0.1 oz) 05/20/2024 10:58 AM CDT Height 162.8 cm (5' 4.09) 08/24/2023 10:[address] Body Mass Index 23.62 08/24/2023 10:57 AM FINISHER WALLBOARD AND PLASTERBOARD Plan of Treatment Health Maintenance Due Date Last Done Comments Diabetic Office Visit with F oot Exam 1946 Dilated Eye Exam 1945 Hepatitis C Screening 1945 Urine Albumin 1945 Visit: Medicare Annual Wellness 1945 Hepatitis B Vaccines (1 of 3 - Risk 3-dose series) 2006 RSV vaccine - (32-3 6 weeks) or 60+ years (1 - 1-dose 75+ series) 2021 Hemoglobin A1C 01/04/2024 07/06/2023, 03/20/2019 COVID-19 Vaccine (2023-2 5 season) 2024 09/11/2023, 08/21/2022, 05/12/2022, Additional history exists Creatinine Level (Kidney Fun ction Test) 08/24/2024 08/24/2023, 03/20/2019, 03/30/2018 Office Visit for Blood Press ure Check / Re-check 05/20/2025 05/20/2024 Visit: Chronic Disease, age 18+ 05/20/2025 DTaP,Tdap,and Td Vaccines (3 - Td or Tdap) 03/14/2032 03/14/2022, 03/22/2011, 07/05/1999 Pneumococcal vaccine (65+ years) Completed 01/08/20 16, 07/15/2014 Hepatitis A Vaccines Completed 12/15/2016, 06/15/20 Zoster Vaccines Completed 03/27/2019, 0612/2018, 12/30/2011 Fall Risk Screen (Annual) Completed 08/24/2023 Influenza Vaccine Completed 03/29/2024, , 05/27/2022, Additional history exists Depression Screening (Annual PHQ-2) Completed 05/20/2024, 05/20/2024 Medical Devices Implanted Type Area Airport Manager Device Identifier Shelf Expiration Date Model / Serial / Lot Hardware E.G. Pins/Screws/Ro ds Hardware e.g. pins/screws/ rods Left: Arm Hardware E.G. Pins/Screws/Ro ds Hardware e.g. pins/screws/ rods Right: Foot Knee Implant Knee Implant Left: Knee Bsplt Tib Trt Sz4 - [id number] Implanted:Qty: 1 on 07/05/2023 by Uriel Renner M.D. at [facility] Knee Implant Right: Knee Darvin 03/06/2028 5536-B-40 0 / / [id number] Kn Fem Trt Rt Pors Sz-4 - [id number] Implanted:Qty: 1 on 07/05/2023 by Uriel Renner M.D. at [facility] Knee Implant Right: Knee Homestead 02/26/2028 5516-F-40 2 / / [id number] Pat Trt Sym Mtl 9x33 - [id number] Implanted:Qty: 1 on 07/05/2023 by Uriel Renner M.D. at [facility] Knee Implant Right: Knee Homestead 05/15/2028 5556-L-33 9 / / [id number] Ins Tib Trt Ps Sz4 10 - [id number] Implanted:Qty: 1 on 07/05/2023 by Uriel Renner M.D. at [facility] Knee Implant Right: Knee Homestead 01/04/2028 5532-G-41 0-E / / [id number] Reunion Rsa 4.5mm /28mm Implanted:Qty: 1 on 06/18/2019 at [facility] Shoulder Implant Homestead [id number] / / Reunion Rsa Screw 4.5/24mm Implanted:Qty: 1 on 06/18/2019 at [facility] Shoulder Implant Homestead [id number] 03/16/2024 4223-7769 / / [id number] Reunuion Screw 4.5mm/16mm Implanted:Qty: 1 on 06/18/2019 at [facility] Shoulder Implant Darvin [id number] 03/17/2024 9744-3998 / / [id number] Reunion Screw 4.5mm/24mm Implanted:Qty: 1 on 06/18/2019 at [facility] Shoulder Implant Darvin [id number] 03/21/2023 4833-0526 / / [id number] Humeral Insert 32mm Implanted:Qty: 1 on 06/18/2019 at [facility] Shoulder Implant Homestead 5571-S-32 04 / / Reunion Modular Humeral Stem Implanted:Qty: 1 on 06/18/2019 at [facility] Shoulder Implant Homestead [id number] 10/16/2023 91639-Y-7 011 / / [id number] Reunuin Rsa Humeral Cup 32mm/4mm Implanted:Qty: 1 on 06/18/2019 at [facility] Shoulder Implant [place]estead [id number] 03/09/2024 5555-7000 / / [id number] Reunion Rsa Center Screw 6.5mm Implanted:Qty: 1 on 06/18/2019 at [facility] Shoulder Implant Homestead [id number] 03/23/2024 2161-8905 / / [id number] Reunion Rsa Concentric Glensphere Implanted:Qty: 1 on 06/18/2019 at [facility] Shoulder Implant Homestead [id number] 03/09/2024 5573-C-32 02 / / [id number] Procedures Procedure Name Priority Date/Time Associated Diagnosis Comments MR SHOULDER LEFT WITHOUT IV CONTRAST RAD - Routine (most inpatients and all outpatients) 05/30/2024 3:25 PM CDT Pain Shoulder Left DX SHOULDER LEFT 2+ VIEWS RAD - Routine (most inpatients and all outpatients) 05/20/2024 11:46 AM CDT Pain Shoulder Left DX SHOULDER BILATERAL 2+ VIEWS RAD - Routine (most inpatients and all outpatients) 04/16/2024 10:29 AM CDT Pain Shoulder Right Pain Shoulder Left BASIC METABOLIC PANEL, S/P Routine 08/24/2023 11:58 AM FINISHER WALLBOARD AND PLASTERBOARD Preoperative Exam HEMOGLOBIN A1C, B Routine 07/06/2023 5:5 2 AM FINISHER WALLBOARD AND PLASTERBOARD from Last 3 Months or Most Recently Relevant to Health Maintenance Results * MR Shoulder Left without IV [...] joint effusion and synovitis. 5. SLAP tear. us Precious RIVERA MRI PROCEDURES Final R esult * DX Shoulder Left 2+ Views (05/20/2024 [...] Mildglenohumeral degenerative change. April 16, 2024 comparison. us Precious Estrada M.D. [facility] DIAGNOSTIC IMAGING PRO CEDURES Final Result * DX Shoulder Bilateral 2+ Views (04/16/2024 [...] tendinitis. Candice Lynch APRN, C.N.P., D.N.P. IMG DIAGNOS TIC IMAGING PROCEDURES Final Result * Basic Metabolic Panel (08/24/2023 11:58 AM FINISHER WALLBOARD AND PLASTERBOARD) Potassium, P 4.5 3.6 - 5.2 mmol/L 08/24/2023 12:27 PM FINISHER WALLBOARD AND PLASTERBOARD CNFL Sodium, P 136 135 - 145 mmol/L 08/24/2023 12:27 PM FINISHER WALLBOARD AND PLASTERBOARD CNFL Chloride, P 100 98 - 107 mmol/L 08/24/2023 12:27 PM FINISHER WALLBOARD AND PLASTERBOARD CNFL Bicarbonate, P 28 22 - 29 mmol/L 08/24/2023 12:27 PM FINISHER WALLBOARD AND PLASTERBOARD CNFL Anion Gap, P 8 7 - 15 08/24/2023 12:27 PM FINISHER WALLBOARD AND PLASTERBOARD CNFL BUN (Blood Urea Nitrogen), P 14 6 - 21 mg/dL 08/24/2023 12:27 PM FINISHER WALLBOARD AND PLASTERBOARD CNFL Creatinine 0.64 0.59 - 1.04 mg/dL 08/24/2023 12:27 PM FINISHER WALLBOARD AND PLASTERBOARD CNFL Estimated GFR (eGFR) >90 >=60 mL/min/BSA 08/24/2023 12:27 PM FINISHER WALLBOARD AND PLASTERBOARD CNFL Comment: Estimated GFR calculated using the 2020 CKD_EPI creatinine equation. Calcium, Total, P 10.0 8.8 - 10.2 mg/dL 08/24/2023 12:27 PM FINISHER WALLBOARD AND PLASTERBOARD CNFL Glucose, P 111 70 - 140 mg/dL 08/24/2023 12:27 PM FINISHER WALLBOARD AND PLASTERBOARD CNFL Blood (Blood, Venous) 08/24/2023 11:58 AM FINISHER WALLBOARD AND PLASTERBOARD 08/24/2023 12:00 PM FINISHER WALLBOARD AND PLASTERBOARD Candice Barcenas APRN, C.N.P. LAB BLOOD ADD-ON Sue l Result Performing Organization Address City/State/[facility] Co de Phone Number [facility] [address] [place] [address], [facility] [address] * (ABNORMAL) Hemoglobin A1c (07/06/2023 5:52 AM FINISHER WALLBOARD AND PLASTERBOARD) Hemoglobin A1c, B 7.2(H) 4.2 - 5.6 % 07/06/2023 6:50 AM FINISHER WALLBOARD AND PLASTERBOARD RDWG Comment: Hemoglobin A1c values greater than or equal to 6.5 percent are diagnostic for diabetes mellitus. ??Diagnosis should be confirmed by repeat testing. ??In diabetic patients, HbA1c goals should be discussed with healthcare provider. Blood (Blood, Venous) 07/06/2023 5:52 AM FINISHER WALLBOARD AND PLASTERBOARD 07/06/2023 6:30 AM FINISHER WALLBOARD AND PLASTERBOARD us Uriel Renner M.D. LAB BLOOD ADD-ON Final Res ult [facility] [address] [address], [place] [facility]DW[facility] in [place] [address] [phone] from Last 3 Months or Most Recently Relevant to Health Maintenance Insurance MEDICARE [facility] Advance Directives For more information, please contact: [phone] Documents on File Type Date Recorded Patient Assistant Superintendent Expl anation Advance Directives 07/07/2023 9:39 AM Robert Devlin HCPOA/ADVOCATE/AGENT/ INSTRUCTOR LOOPING/SURROG ATE * Full Code (Latest Code Status [...] Name Relationship Healthcare Agent Relationship Communication Robert Nieves Spouse Health Care Agent Elizabeth Diaz Daughter First Alternate Health Care Agent Verónica Devlin Daughter Second Alternate Health Care Agent Care Teams Retort Fireman Relationship Specialty Start Date End Date None Reported, Pcp PCP - General Family Medicine 07/05/23
--- OUTSIDE RECORDS SUMMARY | 2024-06-06 14:18 | XMS_ITS | Referral Summary ---
Author Organization [facility] Address [address] [place] [address] Care Team Providers Care Software Performance Engineer Name Role Phone None Reported, Pcp Primary Care Provider Unavail able Source Comments Patient records contain information from all sites at [facility]. For routine questions regarding patient records, call [phone] during business hours, M-F 8:00 AM - 5:00 PM Central Time. Record requests for emergency care only can be directed to [phone] at any time.[facility] Encounters Date Type Department Care Team Description 06/04/2024 2:30 PM CDT Office Visit Department of Orthopedic Surgery in [address] [phone] Candice Lynch APRN, C.N.P., D.N.P. Pain Shoulder Left (Primary Dx) Discharge Disposition: Home or Self Care 05/30/2024 2:43 PM CDT - 05/30/2024 11:59 PM CDT Hospital Encounter Department of Radiology in [address] [phone] Precious Estrada M.D. Pain Shoulder Left Discharge Disposition: Home or Self Care 05/20/2024 11:27 AM CDT - 05/20/2024 11:59 PM CDT Hospital Encounter Department of Radiology in [address] [phone] Precious Estrada M.D. Pain Shoulder Left Discharge Disposition: Home or Self Care 05/20/2024 11:00 AM CDT Office Visit Department of Family Medicine, [facility], in [address] [phone] Precious Estrada M.D. Pain Shoulder Left (Primary Dx); Diabetes Mellitus Type 2 Without Complication (HCC) Discharge Disposition: Home or Self Care 05/20/2024 Nurse Triage Department of Family Medicine, [facility], in [place], [place] [address] [place] [address] Amanda Finn R.N. Arm Injury 04/16/2024 10:01 AM CDT - 04/16/2024 11:59 PM CDT Hospital Encounter Department of Radiology in [address] [phone] Candice Lynch APRN, C.N.P., D.N.P. Pain Shoulder Right; Pain Shoulder Left Discharge Disposition: Home or Self Care 04/11/2024 Clinical Communication Department of Orthopedic Surgery in [address] [phone] Candice Lynch APRN, C.N.P., D.N.P. from Last [...] (01/15/2019): Added automatically from request for surgery [id number] Primary Osteoarthritis Shoulder Right 01/15/2019 Overview (01/15/2019): Added automatically from request for surgery [id number] Encounter For Other Orthopedic Aftercare 017 Nevus [...] quad (FLUZONE/FLUARIX) (6 months and older)(PF) 04/26/2017,09/04/2009 Social History Tobacco Use Types Packs/Day Years Used Date Smoking Tobacco: Former Cigarettes Smokeless Tobacco: Never Tobacco Cessation:Counseling Given: Not Answered Alcohol Use Standard Drinks/Week Comments Not Currently 0 (1 standard drink = 0.6 oz pur e alcohol) [facility] Utilities Answer Date Recorded In the past [...] Family Three times a week 04/11/2019 Attends Yarsanism Services Not on file 04/11 Active Member [...] your living situation today? I have a [facility] place to live 09/19/2023 Comments No Sex and Gender Information Value Date Recorded Sex Assigned at Not on file Legal Sex Female 4:53 PM MOLD POLISHER Gender Identity Not on file Sexual Orientation Straight 10/24/2022 2: 54 PM CDT Last Filed Vital Signs Vital Sign Reading Time Taken Comments Blood Pressure 137/85 05/20/2024 10:58 AM CDT Pulse 67 05/20/2024 10:58 AM CDT Temperature 36 ??C (96.8 ??F) 05/20/2024 10:58 AM CDT Respiratory Rate 14 08/24/2023 10:57 AM MOLD POLISHER Oxygen Saturation 98% 05/20/2024 10:58 AM CDT Inhaled Oxygen Concentration - - Weight 62.6 kg (138 lb 0.1 oz) 05/20/2024 10:58 AM CDT Height 162.8 cm (5' 4.09) 08/24/2023 10:[address] Body Mass Index 23.62 08/24/2023 10:57 AM MOLD POLISHER Plan of Treatment Not on file Medical Devices Implanted Type Area Shrimper Device Identifier Shelf Expiration Date Model / Serial / Lot Hardware E.G. Pins/Screws/Ro ds Hardware e.g. pins/screws/ rods Left: Arm Hardware E.G. Pins/Screws/Ro ds Hardware e.g. pins/screws/ rods Right: Foot Knee Implant Knee Implant Left: Knee Bsplt Tib Trt Sz4 - [id number] Implanted:Qty: 1 on 07/05/2023 by Uriel Renner M.D. at [facility] Knee Implant Right: Knee Independence 03/06/2028 5536-B-40 0 / / [id number] Kn Fem Trt Rt Pors Sz-4 - [id number] Implanted:Qty: 1 on 07/05/2023 by Uriel Renner M.D. at [facility] Knee Implant Right: Knee Independence 02/26/2028 5516-F-40 2 / / [id number] Pat Trt Sym Mtl 9x33 - [id number] Implanted:Qty: 1 on 07/05/2023 by Uriel Renner M.D. at [facility] Knee Implant Right: Knee Darvin 05/15/2028 5556-L-33 9 / / [id number] Ins Tib Trt Ps Sz4 10 - [id number] Implanted:Qty: 1 on 07/05/2023 by Uriel Renner M.D. at [facility] Knee Implant Right: Knee Darvin 01/04/2028 5532-G-41 0-E / / [id number] Reunion Rsa 4.5mm /28mm Implanted:Qty: 1 on 06/18/2019 at [facility] Shoulder Implant Independence 4401-2057 / / Reunion Rsa Screw 4.5/24mm Implanted:Qty: 1 on 06/18/2019 at [facility] Shoulder Implant Darvin [id number] 03/16/2024 8686-4963 / / [id number] Reunuion Screw 4.5mm/16mm Implanted:Qty: 1 on 06/18/2019 at [facility] Shoulder Implant Darvin [id number] 03/17/2024 3523-9361 / / [id number] Reunion Screw 4.5mm/24mm Implanted:Qty: 1 on 06/18/2019 at [facility] Shoulder Implant Independence [id number] 03/21/2023 3145-4569 / / [id number] Humeral Insert 32mm Implanted:Qty: 1 on 06/18/2019 at [facility] Shoulder Implant Darvin 5571-S-32 04 / / Reunion Modular Humeral Stem Implanted:Qty: 1 on 06/18/2019 at [facility] Shoulder Implant [place] [id number] 10/16/2023 74117-V-8 011 / / [id number] Reunuin Rsa Humeral Cup 32mm/4mm Implanted:Qty: 1 on 06/18/2019 at [facility] Shoulder Implant Darvin [id number] 03/09/2024 9115-8268 / / [id number] Reunion Rsa Center Screw 6.5mm Implanted:Qty: 1 on 06/18/2019 at [facility] Shoulder Implant Darvin [id number] 03/23/2024 5876-7405 / / [id number] Reunion Rsa Concentric Glensphere Implanted:Qty: 1 on 06/18/2019 at [facility] Shoulder Implant Darvin [id number] 03/09/2024 5573-C-32 02 / / [id number] Procedures [...] METABOLIC PANEL, S/P Routine 08/24/2023 11:58 AM MOLD POLISHER Preoperative Exam HEMOGLOBIN A1C, B Routine 07/06/2023 5:5 2 AM MOLD POLISHER from Last 3 Months or Most Recently [...] 16, 2024 comparison. us Precious Estrada M.D. [facility] DIAGNOSTIC IMAGING PRO CEDURES Final Result * [...] tendinitis. Candice Lynch APRN C.N.P., D.N.P. IMG DIAGNOS TIC IMAGING PROCEDURES Final Result * Basic Metabolic Panel (08/24/2023 11:58 AM MOLD POLISHER) Potassium, P 4.5 3.6 - 5.2 mmol/L 08/24/2023 12:27 PM MOLD POLISHER CNFL Sodium, P 136 135 - 145 mmol/L 08/24/2023 12:27 PM MOLD POLISHER CNFL Chloride, P 100 98 - 107 mmol/L 08/24/2023 12:27 PM MOLD POLISHER CNFL Bicarbonate, P 28 22 - 29 mmol/L 08/24/2023 12:27 PM MOLD POLISHER CNFL Anion Gap, P 8 7 - 15 08/24/2023 12:27 PM MOLD POLISHER CNFL BUN (Blood Urea Nitrogen), P 14 6 - 21 mg/dL 08/24/2023 12:27 PM MOLD POLISHER CNFL Creatinine 0.64 0.59 - 1.04 mg/dL 08/24/2023 12:27 PM MOLD POLISHER CNFL Estimated GFR (eGFR) >90 >=60 mL/min/BSA 08/24/2023 12:27 PM MOLD POLISHER CNFL Comment: Estimated GFR calculated using the 2020 CKD_EPI creatinine equation. Calcium, Total, P 10.0 8.8 - 10.2 mg/dL 08/24/2023 12:27 PM MOLD POLISHER CNFL Glucose, P 111 70 - 140 mg/dL 08/24/2023 12:27 PM MOLD POLISHER CNFL Blood (Blood, Venous) 08/24/2023 11:58 AM MOLD POLISHER 08/24/2023 12:00 PM MOLD POLISHER us Candice Barcenas APRN, C.N.P. LAB BLOOD ADD-ON Sue l Result Performing Organization Address City/State/[facility] Co de Phone Number [facility] [address] [place] [address], [facility] [place] [address] * (ABNORMAL) Hemoglobin A1c (07/06/2023 5:52 AM MOLD POLISHER) Hemoglobin A1c, B 7.2(H) 4.2 - 5.6 % 07/06/2023 6:50 AM MOLD POLISHER [facility] Comment: Hemoglobin A1c values greater than or equal to 6.5 percent are diagnostic for diabetes mellitus. ??Diagnosis should be confirmed by repeat testing. ??In diabetic patients, HbA1c goals should be discussed with healthcare provider. Blood (Blood, Venous) 07/06/2023 5:52 AM MOLD POLISHER 07/06/2023 6:30 AM MOLD POLISHER us Uriel Renner M.D. LAB BLOOD ADD-ON Final Res ult [facility] [address] [address], [place] RDW[facility] in [place] [address] [phone] from Last 3 Months or Most Recently Relevant to Health Maintenance Insurance MEDICARE [facility] Advance Directives For more information, please contact: [phone] Documents on File Type Date Recorded Patient Traffic Law Attorney Expl anation Advance Directives 07/07/2023 9:39 AM Robert TELLEZOA/ADVOCATE/AGENT/ DRAFTER TOPOGRAPHICAL/SURROG ATE * Full Code (Latest Code Status [...] Second Alternate Health Care Agent Care Teams Software Performance Engineer Relationship Specialty Start Date End Date None Reported, Pcp PCP - General Family Medicine 07/05/23
--- OUTSIDE RECORDS SUMMARY | 2024-06-06 14:18 | XMS_ITS | Encounter Summary ---
Author Organization [facility] Address [address] [place] [address] Care Team Providers Care Aids Social Worker Name Role Phone None Reported, Pcp Primary Care Provider Unavail able Reason for Visit * Reason Comments Pain About 1 week ago charmaine castañeda felt a snap in her left bicep area * Appointment Request (Routine) - Closed Specialty Diagnoses / Procedures Referred By Carley shields Referred To Contact Orthopedic Surgery Diagnoses Pain Shoulder Left Pain Shoulder Right Referral ID Status Reason Start Date Expiration Date Visits Re quested Visits Authorized [id number] Closed 04/11/2024 04/11/2025 1 1 Encounter Details Date Type Department Care Team (Late st Contact Info) Description 06/04/2024 2:30 PM CDT Office Visit Department of Orthopedic Surgery in [address] [phone] Candice Lynch APRN, C.N.P., D.N.P. [address] [place] [address] Pain Shoulder Left (Primary Dx) Discharge Disposition: Home or Self Care Social History Tobacco Use Types Packs/Day Years Used Date Smoking Tobacco: Former Cigarettes Smokeless Tobacco: Never Alcohol Use Standard Drinks/Week Comments Not Currently 0 (1 standard drink = 0.6 oz pur e alcohol) [facility] Utilities Answer Date Recorded In the past [...] Family Three times a week 04/11/2019 Attends Christianity Services Not on file 04/11 Active Member [...] Date Recorded Dental: Regular Dentist Yes 09/19/19 24 Employment Answer Date Recorded Employment status Retired 09/19/2023 Housing Stability Answer Date Recorded What is your living situation today? I have a [facility] place to live 09/19/2023 Comments No Sex and Gender Information Value Date Recorded Sex Assigned at Not on file Legal Sex Female 4:53 PM EMERGENCY ROOM PHYSICIAN ASSISTANT Gender Identity Not on file Sexual Orientation Straight 10/24/2022 2: 54 PM CDT documented as of this encounter Progress Notes * Candice Lynch, EDGAR, C.N.P., D.N.P. - 06/04/2024 2:30 PM CDT SUBJECTIVE CHIEF COMPLAINT / REASON FOR VISIT Heather Harrell is a 78 y.o. female who presents for evaluation of Pain of the Left Arm (About 1 week ago patient felt a snap in her left bicep area). HISTORY OF PRESENT ILLNESS Heather is a pleasant 78 y.o. female who presents to the clinic today for evaluation of LEFT shoulder pain following a fall onto her back about two months ago. She reports that about a week or so ago,she felt/heard a snap in her shoulder. She reports pain in her shoulder has significantly improved over the past month or so. She is here for MRI results. OBJECTIVE PHYSICAL EXAMINATION General: Patient is in no distress. Capable of full communication without difficulty. Patient is polite and cooperative. Extremities: Evaluation of her left shoulder, she is full range of motion of her shoulder, forward flexion to 180??, abduction to 120??. Somewhat tender to palpation over her bicipital groove, no obvious Long sign noted. No neurovascular compromise distally. Neuro: Alert and oriented x3. DIAGNOSTICS LEFT SHOULDER MRI IMPRESSION: 1. Rupture of the intra-articular portion [...] joint effusion and synovitis. 5. SLAP tear. ASSESSMENT / PLAN #1 Pain Shoulder Left Heather is a very pleasant 78-year-old female who is here today for evaluation of left shoulder painand MRI results. MRI results are as above and were reviewed with her in detail today. At this pointin time, she was most concerned about the snap that she heard but was reassured that she should recover from her biceps tendon rupture without issue. She has little to no pain today. Since she is doin g well following her fall, we will plan to see her back for shoulder pain on an as-needed basis. She is in agreement with this plan, all questions answered. documented in this encounter Plan of Treatment Not on file documented as of this encounter Visit Diagnoses Diagnosis Pain Shoulder Left- Primary documented in this encounter Care Teams Aids Social Worker Relationship Specialty Start Date End Date None Reported, Pcp PCP - General Family Medicine 07/05/23 documented as of this encounter
--- OUTSIDE RECORDS SUMMARY | 2024-06-06 14:19 | XMS_ITS | Clinical Summary ---
Author Organization [facility] Address [address] [place] [id number] Care Team Providers Care Director Of Provider Relations Name Role Phone No Ref-Primary, Physician Primary Care Provider Allergies Active Allergy Reactions Criticality Noted Date Comments Codeine GI Disturbance 06/24/2014 Statins 03/08/2018 Medications aspirin 81 MG tablet Take 1 tablet by mouth daily. 7 tablet OTC 2 Active Additional Information Patient taking differently:81 mg [...] SODIUM PO Take 25 mcg by mouth Active Plant Sterols and Stanols (CHOLEST OFF PO) Take 1 tablet by mouth daily Active Panaca-3 Fatty Acids (OMEGA-3 FISH OIL PO) Take [...] School Help Needed Not on file 05/20 Comments No Sex and Gender Information Value Date Recorded Sex Assigned at Not on file Legal Sex Female 3:40 AM COMMERCIAL LITIGATION PARALEGAL Gender Identity Not on file Sexual Orientation Not on file Last Filed Vital Signs Vital Sign Reading Time Taken Comments Blood Pressure 104/60 03/08/2018 10:15 AM CDT Pulse 66 06/24/2014 11:08 AM COMMERCIAL LITIGATION PARALEGAL Temperature 36.3 ??C (97.3 ??F) 03/08/2018 8:00 [...] on file Medical Devices Implanted Type Area Lock And Dam Equipment Repairer Device Identifier Shelf Expiration Date Model / Serial / Lot Eye Imp Iol [place] 1-Piece Tecnis Toric +22.0 [id number] Implanted:Qty: 1 on 03/08/2018 by Pankaj Quiñones MD at [facility] Lens/Eye Implant Right: Eye [employer] 06/17/2021 [id number] / [id number] / Screw Implanted:Qty: 1 on 07/03/2014 by Javad Ray MD at [facility] Right: Foot KAYLEEN / [id number] / [id number] Description:1.9mm Emergency Screws 12mm screw length 2.7mm Locking Screw 14mml Implanted:Qty: 1 on 07/03/2014 by Javad Ray MD at [facility] Right: Foot KAYLEEN / [id number] / [id number] 050 Description:2.7 Locking Scre w T7 14mm 2.7mm Locking Screws 16mml Implanted:Qty: 2 on 07/03/2014 by Javad Ray MD at [facility] Right: Foot KAYLEEN / [id number] / [id number] Description:2.7mm Locking Sc rews T7 16mm length 2.7mm Locking Screws 18mml Implanted:Qty: 1 on 07/03/2014 by Javad Ray MD at [facility] Right: Foot KAYLEEN / [id number] / [id number] 0506 Description:2.7mm Locking Sc rew T7 18mm length 2.7mm Non-Locking Screw 24mml Implanted:Qty: 1 on 07/03/2014 by Javad Ray MD at [facility] Right: Foot KAYLEEN / [id number] / [id number] 0506 Description:2.7mm Non- Locki ng Screw T7 24mm length K Wire .062 Implanted:Qty: 1 on 07/03/2014 by Javad Ray MD at [facility] Right: Foot Depuy / / [id number] Twist Drill Implanted:Qty: 1 on 07/03/2014 by Javad Ray MD at [facility] Right: Foot KAYLEEN / [id number] / [id number] 0506 Description:1.4 x 27mm AO Tw ist Drill Twist Drill 1.9 X 27mm Implanted:Qty: 1 on 07/03/2014 by Javad Ray MD at [facility] Right: Foot KAYLEEN / [id number] / [id number] 0506 Description:1.9x27mm AO Twis t Drill Countersinks 1.7mm 47mm Implanted:Qty: 1 on 07/03/2014 by aJvad Ray MD at [facility] Right: Foot KAYLEEN / [id number] / [id number] 0506 Description:1.7mm screw, 47m m AO Countersinks Curved Plate 2.7mm Implanted:Qty: 1 on 07/03/2014 by Javad Ray MD at [facility] KAYLEEN / [id number] / [id number] [id number] Description:Curved Plate 2.7 mm 26mm length 4 holes Concave Reamer Implanted:Qty: 1 on 07/03/2014 by Javad Ray MD at [facility] Right: Foot KAYLEEN / [id number] Description:18mm Concave [place] darrius Community [employer] Agent Implanted:Qty: 1 on 07/03/2014 by Javad Ray MD at [facility] Right: Foot KAYLEEN / [id number] Description:18mm Barrel Ream er Convex Reamer 18mm Implanted:Qty: 1 on 07/03/2014 by Javad Ray MD at [facility] Right: Foot KAYLEEN / [id number] Description:18mm Convex Ream er Kwire Implanted:Qty: 2 on 07/03/2014 by Javad Ray MD at [facility] Right: Foot KAYLEEN / [id number] / [id number] Description:K Wire Smooth, 1 .4 x 100mm Insurance [facility] [id number] SPECIAL GUARANTOR Care Teams Director Of Provider Relations Relationship Specialty Start Date End Date No Ref-Primary, Physician PCP - General 03/08/18
--- OUTSIDE RECORDS SUMMARY | 2024-06-06 14:19 | XMS_ITS | Encounter Summary ---
Author Organization [facility] Address [address] [place] [address] Care Team Providers Care Cotton Breeder Name Role Phone No Ref-Primary, Physician Primary Care Provider Reason for Visit * Reason Onset Date Comments Appointment 07/07/2020 Appointment for hematuria and chronic cystitis Encounter Details Date Type Department Care Team (Late st Contact Info) Description 07/07/2020 [facility] [address] [place] [address] None Appointment (Appointment for hematuria and chronic cystitis) Social History Tobacco Use Types Packs/Day Years Used Date Smoking Tobacco: Former Smokeless Tobacco: Never Comments: Alcohol Use Standard Drinks/Week Comments Yes 0 (1 standard drink = 0.6 oz pur e alcohol) occasionally Comments No Sex and Gender Information Value Date Recorded Sex Assigned at Not on file Legal Sex Female 3:40 AM LEGAL SERVICES PROFESSIONAL Gender Identity Not on file Sexual Orientation Not on file documented as of this encounter Miscellaneous Notes * Telephone Encounter - Saul Gamez - 07/07/2020 2:39 PM CST [facility] Call Center Phone Message May a detailed message be left on voicemail: yes Reason for Call: Other: Pt being referred from the [facility] for an appointment in [place] for hematuria and chronic cystitis. Per guidelines, clinic review for hematuria. The referral will be faxed over. Please give pt a call to discuss scheduling an appointment. Action Taken: Message routed to: [facility] urology Travel Screening: Not Applicable L SERVICES PROFESSIONAL documented in this encounter Plan of Treatment Not on file documented as of this encounter Visit Diagnoses Not on filedocumented in this encounter Care Teams Cotton Breeder Relationship Specialty Start Date End Date No Ref-Primary, Physician PCP - General 03/08/18 documented as of this encounter
--- OUTSIDE RECORDS SUMMARY | 2024-06-06 14:19 | XMS_ITS | Encounter Summary ---
Author Organization [facility] Address [address] [place] [address] Care Team Providers Care Safety Coordinator Name Role Phone None Reported, Pcp Primary Care Provider Unavail able Reason for Referral * Outpatient (Routine) - Closed Specialty Diagnoses / Procedures Referred By Contac t Referred To Contact Diagnoses Pain Shoulder Left Procedures DX Shoulder Left 2+ Views Precious Estrada M.D. [address] [place] [phone] Phone: tel: fax: [facility] Region Referral ID Status Reason Start Date Expiration Date Visits Re quested Visits Authorized [id number] Closed 05/20/2024 05/20/2025 1 1 * MRI/CAT/PET Scan (Routine) - Closed Specialty Diagnoses / Procedures Referred By Contac t Referred To Contact Radiology Diagnoses Pain Shoulder Left Procedures MR Shoulder Left without IV Contrast Precious Estrada M.D. [address] [place] [phone] Phone: tel: fax: [facility] Region Referral ID Status Reason Start Date Expiration Date Visits Re quested Visits Authorized [id number] Closed 05/20/2024 05/20/2025 1 1 Reason for Visit * Reason Comments Arm Injury Left arm pain was cl osing a window 05/19/24, hear something snap in upper arm near shoulder arm sounded like a rubber band snapping, hurts to lift or hold something with left arm, denies falling or something hitting arm * Appointment Request (Routine) - Closed Specialty Diagnoses / Procedures Referred By Carley shields Referred To Contact Family Medicine Referral ID Status Reason Start Date Expiration Date Visits Re quested Visits Authorized [id number] Closed 05/20/2024 05/20/2025 1 1 Encounter Details Date Type Department Care Team (Late st Contact Info) Description 05/20/2024 11:00 AM CDT Office Visit Department of Family Medicine, [facility], in [address] [phone] Precious Estrada M.D. [address] [place] [phone] Pain Shoulder Left (Primary Dx); Diabetes Mellitus Type 2 Without Complication (HCC) Discharge Disposition: Home or Self Care Social History Tobacco Use Types Packs/Day Years Used Date Smoking Tobacco: Former Cigarettes Smokeless Tobacco: Never Tobacco Cessation:Counseling Given: Not Answered Alcohol Use Standard Drinks/Week Comments Not Currently 0 (1 standard drink = 0.6 oz pur e alcohol) [facility] Utilities Answer Date Recorded In the past 12 months has [facility], gas, oil, or water [employer] [facility] threatened to shut off services in your home? No 09/19/2023 Social Connection and Isolat ion Panel [NHANES] Answer Date Recorded Frequency of Communication w ith Friends and Family More than three times a week 04/11/2019 Frequency of Social Gatherin gs with Friends and Family Three times a week 04/11/2019 Attends [employer] Not on file 04/11 Active Member [...] your living situation today? 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 ATTENDANT Gender Identity Not on file Sexual Orientation Straight 10/24/2022 2: 54 PM CDT documented as of this encounter Last Filed Vital Signs Vital Sign Reading Time Taken Comments Blood Pressure 137/85 05/20/2024 10:58 AM CDT Pulse 67 05/20/2024 10:58 AM CDT Temperature 36 ??C (96.8 ??F) 05/20/2024 10:58 AM CDT Respiratory Rate - - Oxygen Saturation 98% 05/20/2024 10:58 AM CDT Inhaled Oxygen Concentration - - Weight 62.6 kg (138 lb 0.1 oz) 05/20/2024 10:58 AM CDT Height - - Body Mass Index 23.62 08/24/2023 10:57 AM CAMP ATTENDANT documented in this encounter Progress Notes * Precious Estrada M.D. - 05/20/2024 11:00 AM CDT SUBJECTIVE The patient verbally consented to an audio recording of their visit to assist with the completion of documentation. REASON FOR VISIT Arm Injury (Left arm pain was closing a window 05/19/24, hear something snap in upper arm near shoulder arm sounded like a rubber band snapping, hurts to lift or hold something with left arm, denies falling or something hitting arm ) HISTORY OF PRESENT ILLNESS History of Present Illness The patient, with a history of rotator cuff tear and subsequent shoulder replacement on the right side, presents with new onset left shoulder pain following a fall at a swimming pool approximately three months ago. The patient reports a snapping sensation in the left shoulder while attempting to close a window yesterday, which has resulted in severe pain and inability to hold heavy objects, including a coffee cup. The pain is localized from the elbow to the neck, with intermittent radiation down to the hand. The patient denies any numbness or tingling in the hand or arm, but reports mild numbness in the arm immediately after the injury. Prior to the recent injury, the patient had been experiencing pain in the left shoulder, but the location and nature of the pain have changed since the snapping incident. The patient has a history of falls, including one that led to the right shoulder injury and subsequent surgery. The patient suspects a similar injury may have occurred to the left shoulder. The patient has been managing the pain with fjhh-tcj-octullt Tylenol and has not sought any other treatments. The patient has an upcoming appointment with orthopedics and is interested in obtaining an MRI to better understand the nature of the injury. OBJECTIVE VITAL SIGNS Vitals reviewed as below: BP 137/85 (BP Location: Right arm, Patient Position: Sitting, Cuff Size: Regular) Pulse 67 Temp36 ??C (Temporal) Wt 62.6 kg SpO2 98% BMI 23.62 kg/m?? PHYSICAL EXAMINATION Constitutional General: She is not in acute distress. Appearance: Normal appearance. Pulmonary Effort: Pulmonary effort is normal. Musculoskeletal Comments: Left shoulder exam: Inspection: No redness, swelling, or deformity. Palpation: No tenderness over the AC joint. Tenderness over the proximal insertion of the biceps tendon and over the mid-humerus. ROM: Full and symmetric active ROM with forward flexion, abduction, internal rotation, of the shoulder. No crepitus or grinding with passive ROM. Strength: 4/5 with resisted external rotation and abduction. Special tests: negative empty can testing. Positive Hawkin's. Neurological Mental Status: She is alert. Mental status is at baseline. Psychiatric Mood and Affect: Mood normal. Behavior: Behavior normal. ASSESSMENT / PLAN Assessment & Plan #1 Pain Shoulder Left Acute on chronic pain and weakness in the left shoulder. Yesterday, she felt a painful snapping sensation in her shoulder following a minor trauma (closing a window). History of a fall a few months ago. Suspected rotator cuff tear. -Repeat shoulder x-ray today to rule out fracture. -Order MRI of the shoulder to evaluate for rotator cuff tear. -Continue lcgu-ety-dvrlogh Tylenol for pain. -Follow-up with orthopedics later this month with imaging results. #2 Diabetes Mellitus Type 2 Without Complication (HCC) She has a PCP elsewhere and met with them last week for diabetes management. No acute concerns today. Precious Estrada M.D. documented in this encounter Plan of Treatment Not on file documented as of this encounter Results * MR Shoulder Left [...] 16, 2024 comparison. us Precious Estrada M.D. [facility] Final Result documented in this encounter Visit Diagnoses Diagnosis Pain Shoulder Left- Primary Diabetes Mellitus Type 2 Without Complication (HCC) Pain Shoulder Left Pain Shoulder Left documented in this encounter Care Teams Safety Coordinator Relationship Specialty Start Date End Date None Reported, Pcp PCP - General Family Medicine 07/05/23 documented as of this encounter
--- OUTSIDE RECORDS SUMMARY | 2024-06-06 14:19 | XMS_ITS | Encounter Summary ---
Author Organization [facility] Address [address] [place] [address] Care Team Providers Care Floor Runner Name Role Phone None Reported, Pcp Primary Care Provider Unavail able Reason for Referral * Outpatient (Routine) - Closed Specialty Diagnoses / Procedures Referred By Carley shields Referred To Contact Diagnoses Pain Shoulder Right Pain Shoulder Left Procedures DX Shoulder Bilateral 2+ Views Candice Lynch APRN, C.N.P., D.N.P. [address] [place] [phone] Phone: tel: fax: [facility] Region Referral ID Status Reason Start Date Expiration Date Visits Re quested Visits Authorized [id number] Closed 04/11/2024 04/11/2025 1 1 Reason for Visit * Outpatient (Routine) - Closed Specialty Diagnoses / Procedures Referred By Contkendra t Referred To Contact Diagnoses Pain Shoulder Right Pain Shoulder Left Procedures DX Shoulder Bilateral 2+ Views Candice Lynch APRN, C.N.P., D.N.P. [address] [place] [phone] Phone: tel: fax: [facility] Region Referral ID Status Reason Start Date Expiration Date Visits Re quested Visits Authorized [id number] Closed 04/11/2024 04/11/2025 1 1 Encounter Details Date Type Department Care Team (Latest Contact Info) Description 04/16/2024 10:01 AM CDT - 04/16/2024 11:59 PM CDT Hospital Encounter Department of Radiology in [address] [phone] Candice Lynch, EDGAR, C.N.P., D.N.P. [address] [place] [phone] Pain Shoulder Right; Pain Shoulder Left Discharge Disposition: Home or Self Care Social History Tobacco Use Types Packs/Day Years Used Date Smoking Tobacco: Former Cigarettes Smokeless Tobacco: Never Alcohol Use Standard Drinks/Week Comments Not Currently 0 (1 standard drink = 0.6 oz pur e alcohol) [facility] Utilities Answer Date Recorded In the [...] Family Three times a week 04/11/2019 Attends Yaz[employer] Services Not on file 04/11 Active Member [...] your living situation today? 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 Candice L Syed REMEDIATION TECHNICIAN, C.N.P., D.N.P. IMG DIAGNOS TIC IMAGING PROCEDURES Final Result documented in this encounter Visit Diagnoses Diagnosis Pain Shoulder Right Pain Shoulder Left documented in this encounter Care Teams Floor Runner Relationship Specialty Start Date End Date None Reported, Pcp PCP - General Family Medicine 07/05/23 documented as of this encounter
--- OUTSIDE RECORDS SUMMARY | 2024-06-06 14:19 | XMS_ITS | Encounter Summary ---
Author Organization [facility] Address [address] [place] [address] Care Team Providers Care Aircraft Machinist Helper Name Role Phone None Reported, Pcp Primary Care Provider Unavail able Reason for Visit * Reason Onset Date Comments Arm Injury 05/20/2024 Encounter Details Date Type Department Care Team (Late st Contact Info) Description 05/20/2024 Nurse Triage Department of Family Medicine, [facility], in [place], [place] [address] [place] [id number] Amanda Finn, RJudithNJudith [address] [place] [address] Arm Injury Social History Tobacco Use Types Packs/Day Years Used Date Smoking Tobacco: Former Cigarettes Smokeless Tobacco: Never Alcohol Use Standard Drinks/Week Comments Not Currently 0 (1 standard drink = 0.6 oz pur e alcohol) [facility] Utilities Answer Date Recorded In the [...] your living situation today? I have a [facility] place to live 09/19/2023 Comments No Sex and Gender Information Value Date Recorded Sex Assigned at Not on file Legal Sex Female 4:53 PM SPECIALTY COOK Gender Identity Not on file Sexual Orientation Straight 10/24/2022 2: 54 PM CDT documented as of this encounter Miscellaneous Notes * Telephone Encounter - Amanda Finn R.N. - 05/20/2024 9:13 AM CDT Chief Complaint / Reason for Call Patient is a 78 y.o. female calling regarding Arm Injury. Assessment Concern: Patient calling. States she had injured her left shoulder awhile ago and has a followup appointment later this month. She says yesterday she was closing her window and she heard a snap in her upper left arm and felt some pain. She says the pain is not too bad but she says she doesn't have much strength in the arm now. Present for: new injury yesterday Home cares tried: rest, aspirin Calling to request: appointment The recommended disposition is See a health care provider within 24 hours. Patient was provided scheduling phone number, plan of care, and transferred to scheduling per current regional process. and If clinic appointment is not available in the next 24 hours, caller is advised to be seen in urgent care or same day clinic Care Advice Patient/Caregiver understands and will follow care advice?: Yes, able to teach back Arm [id number] Nurse Amanda Harvey May 20, 2024 09:14 AM Care Advice PAIN MEDICINES: * For pain relief, you can take either acetaminophen, ibuprofen, or naproxen. * They are elph-lrd-vehahqu (OTC) pain drugs. You can buy them at the drugstore. * ACETAMINOPHEN - REGULAR STRENGTH TYLENOL: Take 650 mg (two 325 mg pills) by mouth every 4 to 6 hours as needed. Each Regular Strength Tylenol pill has 325 mg of acetaminophen. The most you should take is 10 pills a day (3,250 mg total). Note: In [place], the maximum is 12 pills a day (3,900 mg total). * ACETAMINOPHEN - EXTRA STRENGTH TYLENOL: Take 1,000 mg (two 500 mg pills) every 6 to 8 hours as needed. Each Extra Strength Tylenol pill has 500 mg of acetaminophen. The most you should take is 6 pills a day (3,000 mg total). Note: In [place], the maximum is 8 pills a day (4,000 mg total). * IBUPROFEN (E.G., MOTRIN, ADVIL): Take 400 mg (two 200 mg pills) by mouth every 6 hours. The most you should take is 6 pills a day (1,200 mg total). * NAPROXEN (E.G., ALEVE): Take 220 mg (one 220 mg pill) by mouth every 8 to 12 hours as needed. Youmay take 440 mg (two 220 mg pills) for your first dose. The most you should take is 3 pills a day (660 mg total). Note: In [place], the maximum is 2 pills a day (one every 12 hours; 440 mg total). * Use the lowest amount of medicine that makes your pain better. PAIN MEDICINES - EXTRA NOTES AND WARNINGS: * Follow these dosing instructions unless your doctor (or SKI TOPPER/PA) has told you to take a different dose. * Acetaminophen is thought to be safer than ibuprofen or naproxen in people over 65 years old. Acetaminophen is in many OTC and prescription medicines. It might be in more than one medicine that you are taking. You need to be careful and not take an overdose. An acetaminophen overdose can hurt the liver. * [employer], the company that makes Tylenol, has different maximum dosage instructions for Tylenol in [place] than in the [place]. [employer], the company that makes Aleve, has different dosage maximum instructions for Aleve in [place] and the [place]. * CAUTION: Do not take acetaminophen if you have liver disease. * CAUTION: Do not take ibuprofen or naproxen if you have stomach problems, kidney disease, are , or have been told by your doctor to avoid this type of anti-inflammatory drug. Do not take ibuprofen or naproxen for more than 7 days without consulting your doctor. If you take blood thinners, ibuprofen and naproxen can increase the risk of bleeding. * Before taking any medicine, read all the instructions on the package. USE A COLD PACK FOR PAIN, SWELLING, OR BRUISING: * Put a cold pack or an ice bag (wrapped in a moist towel) on the area for 20 minutes. * Repeat in 1 hour, then every 4 hours while awake. * Continue this for the first 48 hours (2 days) after an injury. * This will help decrease pain, swelling, and bruising. * Caution: Avoid frostbite. CALL BACK IF: * Pain becomes severe * You become worse Reason for Disposition [1] High-risk adult (e.g., age > 60 years, osteoporosis, chronic steroid use) AND [2] MILD to MODERATE pain Protocols used: Arm [id number] documented in this encounter Plan of Treatment Not on file documented as of this encounter Visit Diagnoses Not on filedocumented in this encounter Care Teams Aircraft Machinist Helper Relationship Specialty Start Date End Date None Reported, Pcp PCP - General Family Medicine 07/05/23 documented as of this encounter
--- OUTSIDE RECORDS SUMMARY | 2024-06-06 14:19 | XMS_ITS | Encounter Summary ---
Author Organization [facility] Address [address] [place] [address] Care Team Providers Care Manager Payment Name Role Phone None Reported, Pcp Primary Care Provider Unavail able Reason for Referral * Outpatient (Routine) - Closed Specialty Diagnoses / Procedures Referred By Contkendra t Referred To Contact Diagnoses Pain Shoulder Right Pain Shoulder Left Procedures DX Shoulder Bilateral 2+ Views Candice Lynch APRN, C.N.P., D.N.P. [address] [place] [address] Phone: tel: fax: [facility] Region Referral ID Status Reason Start Date Expiration Date Visits Re quested Visits Authorized [id number] Closed 04/11/2024 04/11/2025 1 1 Encounter Details Date Type Department Care Team (Late st Contact Info) Description 04/11/2024 Clinical Communication Department of Orthopedic Surgery in [place], [place] [address] [place] [address] Candice Lynch APRN, C.N.P., D.N.P. [address] [place] [address] Social History Tobacco Use Types Packs/Day Years Used Date Smoking Tobacco: Former Cigarettes Smokeless Tobacco: Never Alcohol Use Standard Drinks/Week Comments Not Currently 0 (1 standard drink = 0.6 oz pur e alcohol) [facility] Utilities Answer Date Recorded In the [...] Family Three times a week 04/11/2019 Attends Congregation Services Not on file 04/11 Active Member [...] your living situation today? I have a [facility] place to live 09/19/2023 Comments No Sex and Gender Information Value Date Recorded Sex Assigned at Not on file Legal Sex Female 4:53 PM RADIO REPAIRER DOMESTIC Gender Identity Not on file Sexual Orientation [...] Left documented in this encounter Care Teams Manager Payment Relationship Specialty Start Date End Date None Reported, Pcp PCP - General Family Medicine 07/05/23 documented as of this encounter
--- OUTSIDE RECORDS SUMMARY | 2024-06-06 14:19 | XMS_ITS | Referral Summary ---
Author Organization [facility] Address [address] [place] [address] Care Team Providers Care Computer Aided Design Technician Name Role Phone No Ref-Primary, Physician [...] Take 1 tablet by mouth daily Active Williams-3 Fatty Acids (OMEGA-3 FISH OIL PO) Take [...] on file Legal Sex Female 3:40 AM WATER QUALITY MANAGER Gender Identity Not on file Sexual Orientation Not on file Last Filed Vital Signs Vital Sign Reading Time Taken Comments Blood Pressure 104/60 03/08/2018 10:15 AM CDT Pulse 66 06/24/2014 11:08 AM WATER QUALITY MANAGER Temperature 36.3 ??C (97.3 ??F) 03/08/2018 8:00 [...] on file Medical Devices Implanted Type Area Camp Dishwasher Device Identifier Shelf Expiration Date Model / Serial / Lot Eye Imp Iol [place] 1-Piece Tecnis Toric +22.0 [id number] Implanted:Qty: 1 on 03/08/2018 by Pankaj Quiñones MD at [facility] Lens/Eye Implant Right: Eye [employer] 06/17/2021 [id number] / [id number] / Screw Implanted:Qty: 1 on 07/03/2014 by Javad Ray MD at [facility] Right: Foot KAYLEEN / [id number] / [id number] Description:1.9mm Emergency Screws 12mm screw length 2.7mm Locking Screw 14mml Implanted:Qty: 1 on 07/03/2014 by Javad Ray MD at [facility] Right: Foot KAYLEEN / [id number] / [id number] Description:2.7 Locking Scre w T7 14mm 2.7mm Locking Screws 16mml Implanted:Qty: 2 on 07/03/2014 by Javad Ray MD at [facility] Right: Foot KAYLEEN / [id number] / [id number] Description:2.7mm Locking Sc rews T7 16mm length 2.7mm Locking Screws 18mml Implanted:Qty: 1 on 07/03/2014 by Javad Ray MD at [facility] Right: Foot KAYLEEN / [id number] / [id number] Description:2.7mm Locking Sc rew T7 18mm length 2.7mm Non-Locking Screw 24mml Implanted:Qty: 1 on 07/03/2014 by Javad Ray MD at [facility] Right: Foot KAYLEEN / [id number] / [id number] Description:2.7mm Non- Locki ng Screw T7 24mm length K Wire .[id number] Implanted:Qty: 1 on 07/03/2014 by Javad Ray MD at [facility] Right: Foot Depuy / / [id number] Twist Drill Implanted:Qty: 1 on 07/03/2014 by Javad Ray MD at [facility] Right: Foot KAYLEEN / [id number] / [id number] Description:1.4 x 27mm AO Tw ist Drill Twist Drill 1.9 X 27mm Implanted:Qty: 1 on 07/03/2014 by Javad Ray MD at [facility] Right: Foot KAYLEEN / [id number] / [id number] 0506 Description:1.9x27mm AO Twis t Drill Countersinks 1.7mm 47mm Implanted:Qty: 1 on 07/03/2014 by Javad Ray MD at [facility] Right: Foot KAYLEEN / [id number] / [id number] Description:1.7mm screw, 47m m AO Countersinks Curved Plate 2.7mm Implanted:Qty: 1 on 07/03/2014 by Javad Ray MD at [facility] KAYLEEN / [id number] / [id number] Description:Curved Plate 2.7 mm 26mm length 4 holes Concave Reamer Implanted:Qty: 1 on 07/03/2014 by Javad Ray MD at [facility] Right: Foot KAYLEEN / [id number] Description:18mm Concave [place] darrius Dimension Stone Quarry Supervisor Implanted:Qty: 1 on 07/03/2014 by Javad Ray MD at [facility] Right: Foot KAYLEEN / [id number] Description:18mm Barrel Ream er Convex Reamer 18mm Implanted:Qty: 1 on 07/03/2014 by Javad Ray MD at [facility] Right: Foot KAYLEEN / [id number] Description:18mm Convex Ream er Kwire Implanted:Qty: 2 on 07/03/2014 by Javad Ray MD at [facility] Right: Foot KAYLEEN / [id number] / [id number] Description:K Wire Smooth, 1 .4 x 100mm Insurance MEDICARE [facility] MADALYN BARRERA [id number] SPECIAL GUARANTOR Care Teams Computer Aided Design Technician Relationship Specialty Start Date End Date No Ref-Primary, Physician PCP - General 03/08/18
--- NOTE | 2024-06-06 14:30 | CRLHL7_ITS ---
For Patients: As a result of the Century Cures Act, medical imaging exams and procedure reports are released immediately into your electronic medical record. You may view this report before your referring provider. If you have questions, please contact your health care provider. DXA BONE MINERAL DENSITY STUDY Reason for exam: Asymptomatic menopausal state. Current height (in): 64. Weight (lb): 137. Menopause age: 27. Ethnicity: White. 1. Have you had a previous hip or vertebral fracture? No. 2. Have you had any fractures during your adult life which did not result from significant trauma (e.g., auto accident)? No. 3. Did either of your parents have a hip fracture? No. 4. Do you smoke? No. 5. Have you ever taken Glucocorticoids? No. 6. Do you have rheumatoid arthritis? No. 7. Do you have secondary osteoporosis? No. 8. Do you drink 3 or more alcoholic drinks per day? No. 9. Are you being treated for osteoporosis? No. 10. Have you ever taken any of the following medications: Actonel, Evista, Fosamax, Miacalcin, Reclast, Boniva, Forteo, HRT (i.e. estrogen/hormone therapy), Protelos, Prolia, Vitamin D, Calcium, other ??? please specify. ANSWER: Yes, Vitamin D and Calcium. 11. Do you have any of the following medical conditions: Anorexia or bulimia, asthma or emphysema, end stage renal disease, hyperparathyroidism, any seizure disorders, cancer, inflammatory bowel diseases, hysterectomy, other ??? please specify. ANSWER: Yes, hysterectomy. 12. What was your maximum height (inches)? 64. 13. Do you perform weight bearing exercise regularly? No. 14. Do you regularly consume dairy products? Yes. 15. Do you drink caffeinated beverages? Yes. 16. At what age did your period start? 18. 17. Are you premenopausal? No. 18. How many full term pregnancies have you had? 2. 19. Have you ever missed your period for more than 6 months in a row (not including or menopause)? Yes. TECHNIQUE: Bone mineral density study was performed using the [employer]. FINDINGS: The results of the study expressed as bone mineral density (BMD) are as follows: Lumbar spine L1 to L4: BMD: 1.307 g/cm2. T-score: 2.4. Z-score: 4.9. Neck Left: BMD: 0.883 g/cm2. T-score: 0.3. Z-score: 2.5. Right: BMD: 0.939 g/cm2. T-score: 0.8. Z-score: 3.0. Total Left: BMD: 0.999 g/cm2. T-score: 0.5. Z-score: 2.4. Right: BMD: 1.013 g/cm2. T-score: 0.6. Z-score: 2.5. IMPRESSION: Normal bone density. *Comparison exams done prior to 01/2020 were performed on different unit, Curb ([employer] COMPARISON: Compared with scan of 09/24/2018, the bone mineral density has decreased by 8.8 percent at the spine and decreased by 0.8 percent at the hip. Evan Gonzalez M.D. Diagnostic Radiologist [email or web address] SP/Dictated by: Evan Gonzalez MD @ 06/07/2024 12:08:00 PM (Electronically Signed)
--- NOTE | 2024-06-06 15:00 | CRLHL7_ITS ---
For Patients: As a result of the Cures Act, medical imaging exams and procedure reports are released immediately into your electronic medical record. You may view this report before your referring provider. If you have questions, please contact your health care provider. Indication: Localized swelling, mass and lump, neck Technique: Grayscale and color Doppler ultrasound of the right submandibular soft tissues performed. Comparison: None Findings: There is a circumscribed slightly hypoechoic structure with internal vascularity within the submandibular soft tissues measuring 2.2 x 0.7 x 1.7 cm. Impression: Solid hypoechoic nodule right submandibular space measuring 2.2 cm, possible enlarged lymph node. A CT of the neck with contrast is recommended for further clarification. Dictated by Evan Gonzalez MD @ 06/07/2024 2:02:43 PM (Electronically Signed)
== END 2024-06-06 14:15 | disposition home or self-care (01) ==
LOC: RAD 14:15
PROVIDERS: PCP Family Medicine; Visit Provider Family Medicine
DX: R22.1 Localized swelling, mass and lump, neck (principal); Z78.0 Asymptomatic menopausal state
CPT/HCPCS: 76536; 77080

== ENCOUNTER 2024-06-12 07:38 | Outpatient (CLI) | payer MEDICARE, BC, SELFPAY ==
--- OUTSIDE RECORDS SUMMARY | 2024-06-12 07:41 | XMS_ITS ---
Author Organization [facility] Address [address] [place] [address] Care Team Providers Care Event Representative Name Role Phone Unavailable Unavailable Unavailable Surgery Details Not on file Complications Check Surgery Details section. Procedure Estimated Blood Loss Check Surgery Details section. Procedure Findings Check Surgery Details section. Procedure Specimens Taken Check Surgery Details section.
--- OUTSIDE RECORDS SUMMARY | 2024-06-12 07:41 | XMS_ITS | Clinical Summary ---
Author Organization [facility] Address [address] [place] [address] Care Team Providers Care Special Warfare Combatant Crewman Name Role Phone None Reported, Pcp Primary Care Provider Unavail able Source Comments Patient records contain information from all sites at [facility]. For routine questions regarding patient records, call [phone] during business hours, M-F 8:00 AM - 5:00 PM Central Time. Record requests for emergency care only can be directed to [phone] at any time.[facility] Allergies Active Allergy Reactions Criticality Noted [...] (01/15/2019): Added automatically from request for surgery [id number] Primary Osteoarthritis Shoulder Right 01/15/2019 Overview (01/15/2019): Added automatically from request for surgery [id number] Encounter For Other Orthopedic Aftercare 017 Nevus [...] Office Visit Department of Orthopedic Surgery in [address] [phone] Candice Lynch APRN, C.N.P., D.N.P. Pain Shoulder Left (Primary Dx) Discharge Disposition: Home or Self Care 05/30/2024 2:43 PM CDT - 05/30/2024 11:59 PM CDT Hospital Encounter Department of Radiology in [address] [phone] Precious Estrada M.D. Pain Shoulder Left Discharge Disposition: Home or Self Care 05/20/2024 11:27 AM CDT - 05/20/2024 11:59 PM CDT Hospital Encounter Department of Radiology in [address] [phone] Precious Estrada M.D. Pain Shoulder Left Discharge Disposition: Home or Self Care 05/20/2024 11:00 AM CDT Office Visit Department of Family Medicine, [facility], in [address] [phone] Precious Estrada M.D. Pain Shoulder Left (Primary Dx); Diabetes Mellitus Type 2 Without Complication (HCC) Discharge Disposition: Home or Self Care 05/20/2024 Nurse Triage Department of Family Medicine, [facility], in [place], [place] [address] [place] [address] Amanda Finn R.N. Arm Injury 04/16/2024 10:01 AM CDT - 04/16/2024 11:59 PM CDT Hospital Encounter Department of Radiology in [address] [phone] Candice Lynch APRN, C.N.P., D.N.P. Pain Shoulder Right; Pain Shoulder Left Discharge Disposition: Home or Self Care 04/11/2024 Clinical Communication Department of Orthopedic Surgery in [place], [place] [address] [place] [phone] Candice Lynch APRN, C.N.P., D.N.P. from [...] drink = 0.6 oz pur e alcohol) [facility] Utilities Answer Date Recorded In the past [...] Family Three times a week 04/11/2019 Attends Gnosticism Services Not on file 04/11 Active Member [...] your living situation today? I have a [facility] place to live 09/19/2023 Comments No Sex and Gender Information Value Date Recorded Sex Assigned at Not on file Legal Sex Female 4:53 PM LEGAL RESEARCHER Gender Identity Not on file Sexual Orientation Straight 10/24/2022 2: 54 PM CDT Last Filed Vital Signs Vital Sign Reading Time Taken Comments Blood Pressure 137/85 05/20/2024 10:58 AM CDT Pulse 67 05/20/2024 10:58 AM CDT Temperature 36 ??C (96.8 ??F) 05/20/2024 10:58 AM CDT Respiratory Rate 14 08/24/2023 10:57 AM LEGAL RESEARCHER Oxygen Saturation 98% 05/20/2024 10:58 AM CDT Inhaled Oxygen Concentration - - Weight 62.6 kg (138 lb 0.1 oz) 05/20/2024 10:58 AM CDT Height 162.8 cm (5' 4.09) 08/24/2023 10:[address] Body Mass Index 23.62 08/24/2023 10:57 AM LEGAL RESEARCHER Plan of Treatment Health Maintenance Due Date [...] 05/20/2024, 05/20/2024 Medical Devices Implanted Type Area Cisco Engineer Device Identifier Shelf Expiration Date Model / Serial / Lot Hardware E.G. Pins/Screws/Ro ds Hardware e.g. pins/screws/ rods Left: Arm Hardware E.G. Pins/Screws/Ro ds Hardware e.g. pins/screws/ rods Right: Foot Knee Implant Knee Implant Left: Knee Bsplt Tib Trt Sz4 - [id number] Implanted:Qty: 1 on 07/05/2023 by Uriel Renner M.D. at [facility] Knee Implant Right: Knee [place] 03/06/2028 5536-B-40 0 / / [id number] Kn Fem Trt Rt Pors Sz-4 - [id number] Implanted:Qty: 1 on 07/05/2023 by Uriel Renner M.D. at [facility] Knee Implant Right: Knee [place] 02/26/2028 5516-F-40 2 / / [id number] Pat Trt Sym Mtl 9x33 - [id number] Implanted:Qty: 1 on 07/05/2023 by Uriel Renner M.D. at [facility] Knee Implant Right: Knee [place] 05/15/2028 5556-L-33 9 / / [id number] Ins Tib Trt Ps Sz4 10 - [id number] Implanted:Qty: 1 on 07/05/2023 by Uriel Renner M.D. at [facility] Knee Implant Right: Knee [place] 01/04/2028 5532-G-41 0-E / / [id number] Reunion Rsa 4.5mm /28mm Implanted:Qty: 1 on 06/18/2019 at [facility] Shoulder Implant [place] [id number] / / Reunion Rsa Screw 4.5/24mm Implanted:Qty: 1 on 06/18/2019 at [facility] Shoulder Implant [place] [id number] 03/16/2024 7604-1997 / / [id number] Reunuion Screw 4.5mm/16mm Implanted:Qty: 1 on 06/18/2019 at [facility] Shoulder Implant [place] [id number] 03/17/2024 3448-9054 / / [id number] Reunion Screw 4.5mm/24mm Implanted:Qty: 1 on 06/18/2019 at [facility] Shoulder Implant [place] [id number] 03/21/2023 7877-8634 / / [id number] Humeral Insert 32mm Implanted:Qty: 1 on 06/18/2019 at [facility] Shoulder Implant [place] 5571-S-32 04 / / Reunion Modular Humeral Stem Implanted:Qty: 1 on 06/18/2019 at [facility] Shoulder Implant [place] [id number] 10/16/2023 38741-H-5 011 / / [id number] Reunuin Rsa Humeral Cup 32mm/4mm Implanted:Qty: 1 on 06/18/2019 at [facility] Shoulder Implant [place] [id number] 03/09/2024 1684-1475 / / [id number] Reunion Rsa Center Screw 6.5mm Implanted:Qty: 1 on 06/18/2019 at [facility] Shoulder Implant [place] [id number] 03/23/2024 3381-3575 / / [id number] Reunion Rsa Concentric Glensphere Implanted:Qty: 1 on 06/18/2019 at [facility] Shoulder Implant [place] [id number] 03/09/2024 5573-C-32 02 / / [id number] Procedures [...] METABOLIC PANEL, S/P Routine 08/24/2023 11:58 AM LEGAL RESEARCHER Preoperative Exam HEMOGLOBIN A1C, B Routine 07/06/2023 5:5 2 AM LEGAL RESEARCHER from Last 3 Months or Most Recently [...] 16, 2024 comparison. us Precious Estrada M.D. [facility] PRO CEDURES Final Result * [...] * Basic Metabolic Panel (08/24/2023 11:58 AM LEGAL RESEARCHER) Potassium, P 4.5 3.6 - 5.2 mmol/L 08/24/2023 12:27 PM LEGAL RESEARCHER CNFL Sodium, P 136 135 - 145 mmol/L 08/24/2023 12:27 PM LEGAL RESEARCHER CNFL Chloride, P 100 98 - 107 mmol/L 08/24/2023 12:27 PM LEGAL RESEARCHER CNFL Bicarbonate, P 28 22 - 29 mmol/L 08/24/2023 12:27 PM LEGAL RESEARCHER CNFL Anion Gap, P 8 7 - 15 08/24/2023 12:27 PM LEGAL RESEARCHER CNFL BUN (Blood Urea Nitrogen), P 14 6 - 21 mg/dL 08/24/2023 12:27 PM LEGAL RESEARCHER CNFL Creatinine 0.64 0.59 - 1.04 mg/dL 08/24/2023 12:27 PM LEGAL RESEARCHER CNFL Estimated GFR (eGFR) >90 >=60 mL/min/BSA 08/24/2023 12:27 PM LEGAL RESEARCHER CNFL Comment: Estimated GFR calculated using the 2020 CKD_EPI creatinine equation. Calcium, Total, P 10.0 8.8 - 10.2 mg/dL 08/24/2023 12:27 PM LEGAL RESEARCHER CNFL Glucose, P 111 70 - 140 mg/dL 08/24/2023 12:27 PM LEGAL RESEARCHER CNFL Blood (Blood, Venous) 08/24/2023 11:58 AM LEGAL RESEARCHER 08/24/2023 12:00 PM LEGAL RESEARCHER Candice Barcenas APRN, C.N.P. LAB BLOOD ADD-ON Sue l Result Performing Organization Address City/State/[facility] Co de Phone Number [facility] [address] [place] [address], [facility] [place] [address] * (ABNORMAL) Hemoglobin A1c (07/06/2023 5:52 AM LEGAL RESEARCHER) Hemoglobin A1c, B 7.2(H) 4.2 - 5.6 % 07/06/2023 6:50 AM LEGAL RESEARCHER [facility]DWG Comment: Hemoglobin A1c values greater than or equal to 6.5 percent are diagnostic for diabetes mellitus. ??Diagnosis should be confirmed by repeat testing. ??In diabetic patients, HbA1c goals should be discussed with healthcare provider. Blood (Blood, Venous) 07/06/2023 5:52 AM LEGAL RESEARCHER 07/06/2023 6:30 AM LEGAL RESEARCHER us Uriel Renner M.D. LAB BLOOD ADD-ON Final Res ult [facility] [address] [place] [address], [place] RDWG [facility] in [place] [address] [phone] from Last 3 Months or Most Recently Relevant to Health Maintenance Insurance MEDICARE [facility] Advance Directives For more information, please contact: [phone] Documents on File Type Date Recorded Patient Lace Burn Out Tender Expl anation Advance Directives 07/07/2023 9:39 AM Robert Devlin HCPOA/ADVOCATE/AGENT/ CERTIFICATION AND SELECTION SPECIALIST/SURROG ATE * Full Code (Latest Code [...] Communication Robert Nieves Spouse Health Care Agent Elizabteh Diaz Daughter First Alternate Health Care Agent Verónica Devlin Daughter Second Alternate Health Care Agent Care Teams Special Warfare Combatant Crewman Relationship Specialty Start Date End Date None Reported, Pcp PCP - General Family Medicine 07/05/23
--- OUTSIDE RECORDS SUMMARY | 2024-06-12 07:41 | XMS_ITS | Encounter Summary ---
Author Organization [facility] Address [address] [place] [address] Care Team Providers Care Emergency Management Coordinator Name Role Phone None Reported, Pcp [...] Expiration Date Visits Re quested Visits Authorized [id number] Closed 04/11/2024 04/11/2025 1 1 Encounter Details Date Type Department Care Team (Late st Contact Info) Description 06/04/2024 2:30 PM CDT Office Visit Department of Orthopedic Surgery in [address] [phone] Candice Lynch APRN, C.N.P., D.N.P. [address] [place] [address] Pain Shoulder Left (Primary Dx) Discharge Disposition: Home or Self Care Social History Tobacco Use Types Packs/Day Years Used Date Smoking Tobacco: Former Cigarettes Smokeless Tobacco: Never Alcohol Use Standard Drinks/Week Comments Not Currently 0 (1 standard drink = 0.6 oz pur e alcohol) [facility] Utilities Answer Date Recorded In [...] your living situation today? 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
--- OUTSIDE RECORDS SUMMARY | 2024-06-12 07:41 | XMS_ITS | Referral Summary ---
Author Organization [facility] Address [address] [place] [address] Care Team Providers Care Pan Tank Worker Name Role Phone None Reported, Pcp Primary Care Provider Unavail able Source Comments Patient records contain information from all sites at [facility]. For routine questions regarding patient records, call [phone] during business hours, M-F 8:00 AM - 5:00 PM Central Time. Record requests for emergency care only can be directed to [phone] at any time.[facility] Encounters Date Type Department Care Team Description 06/04/2024 2:30 PM CDT Office Visit Department of Orthopedic Surgery in [address] [phone] Candice Lynch APRN, C.N.P., D.N.P. Pain Shoulder Left (Primary Dx) Discharge Disposition: Home or Self Care 05/30/2024 2:43 PM CDT - 05/30/2024 11:59 PM CDT Hospital Encounter Department of Radiology in [address] [phone] Precious Estrada M.D. Pain Shoulder Left Discharge Disposition: Home or Self Care 05/20/2024 11:27 AM CDT - 05/20/2024 11:59 PM CDT Hospital Encounter Department of Radiology in [address] [phone] Precious Estrada M.D. Pain Shoulder Left Discharge Disposition: Home or Self Care 05/20/2024 11:00 AM CDT Office Visit Department of Family Medicine, [facility], in [address] [phone] Precious Estrada M.D. Pain Shoulder Left (Primary Dx); Diabetes Mellitus Type 2 Without Complication (HCC) Discharge Disposition: Home or Self Care 05/20/2024 Nurse Triage Department of Family Medicine, [facility], in [place], [place] [address] [place] [address] Amanda Finn R.N. Arm Injury 04/16/2024 10:01 AM CDT - 04/16/2024 11:59 PM CDT Hospital Encounter Department of Radiology in [address] [phone] Candice Lynch APRN, C.N.P., D.N.P. Pain Shoulder Right; Pain Shoulder Left Discharge Disposition: Home or Self Care 04/11/2024 Clinical Communication Department of Orthopedic Surgery in [address] [phone] Candice Lynch APRN, C.N.P., D.N.P. from Last [...] (01/15/2019): Added automatically from request for surgery [id number] Primary Osteoarthritis Shoulder Right 01/15/2019 Overview (01/15/2019): Added automatically from request for surgery [id number] Encounter For Other Orthopedic Aftercare 017 Nevus [...] drink = 0.6 oz pur e alcohol) [facility] Utilities Answer Date Recorded In the [...] Family Three times a week 04/11/2019 Attends [employer] Services Not on file 04/11 Active Member [...] your living situation today? I have a [facility] place to live 09/19/2023 Comments No Sex and Gender Information Value Date Recorded Sex Assigned at Not on file Legal Sex Female 4:53 PM CUSTODY ASSISTANT Gender Identity Not on file Sexual Orientation Straight 10/24/2022 2: 54 PM CDT Last Filed Vital Signs Vital Sign Reading Time Taken Comments Blood Pressure 137/85 05/20/2024 10:58 AM CDT Pulse 67 05/20/2024 10:58 AM CDT Temperature 36 ??C (96.8 ??F) 05/20/2024 10:58 AM CDT Respiratory Rate 14 08/24/2023 10:57 AM CUSTODY ASSISTANT Oxygen Saturation 98% 05/20/2024 10:58 AM CDT Inhaled Oxygen Concentration - - Weight 62.6 kg (138 lb 0.1 oz) 05/20/2024 10:58 AM CDT Height 162.8 cm (5' 4.09) 08/24/2023 10:[address] Body Mass Index 23.62 08/24/2023 10:57 AM CUSTODY ASSISTANT Plan of Treatment Not on file Medical Devices Implanted Type Area Mine Motor Operator Device Identifier Shelf Expiration Date Model / Serial / Lot Hardware E.G. Pins/Screws/Ro ds Hardware e.g. pins/screws/ rods Left: Arm Hardware E.G. Pins/Screws/Ro ds Hardware e.g. pins/screws/ rods Right: Foot Knee Implant Knee Implant Left: Knee Bsplt Tib Trt Sz4 - [id number] Implanted:Qty: 1 on 07/05/2023 by Uriel Renner M.D. at [facility] Knee Implant Right: Knee [place] 03/06/2028 5536-B-40 0 / / [id number] Kn Fem Trt Rt Pors Sz-4 - [id number] Implanted:Qty: 1 on 07/05/2023 by Uriel Renner M.D. at [facility] Knee Implant Right: Knee [place] 02/26/2028 5516-F-40 2 / / [id number] Pat Trt Sym Mtl 9x33 - [id number] Implanted:Qty: 1 on 07/05/2023 by Uriel Renner M.D. at [facility] Knee Implant Right: Knee [place] 05/15/2028 5556-L-33 9 / / [id number] Ins Tib Trt Ps Sz4 10 - [id number] Implanted:Qty: 1 on 07/05/2023 by Uriel Renner M.D. at [facility] Knee Implant Right: Knee [place] 01/04/2028 5532-G-41 0-E / / [id number] Reunion Rsa 4.5mm /28mm Implanted:Qty: 1 on 06/18/2019 at [facility] Shoulder Implant [place] [id number] / / Reunion Rsa Screw 4.5/24mm Implanted:Qty: 1 on 06/18/2019 at [facility] Shoulder Implant [place] [id number] 03/16/2024 2295-4241 / / [id number] Reunuion Screw 4.5mm/16mm Implanted:Qty: 1 on 06/18/2019 at [facility] Shoulder Implant [place] [id number] 03/17/2024 4730-1590 / / [id number] Reunion Screw 4.5mm/24mm Implanted:Qty: 1 on 06/18/2019 at [facility] Shoulder Implant [place] [id number] 03/21/2023 9308-9921 / / [id number] Humeral Insert 32mm Implanted:Qty: 1 on 06/18/2019 at [facility] Shoulder Implant [place] 5571-S-32 04 / / Reunion Modular Humeral Stem Implanted:Qty: 1 on 06/18/2019 at [facility] Shoulder Implant [place] [id number] 10/16/2023 35395-P-8 011 / / [id number] Reunuin Rsa Humeral Cup 32mm/4mm Implanted:Qty: 1 on 06/18/2019 at [facility] Shoulder Implant [place] [id number] 03/09/2024 6344-8841 / / [id number] Reunion Rsa Center Screw 6.5mm Implanted:Qty: 1 on 06/18/2019 at [facility] Shoulder Implant [place] [id number] 03/23/2024 0134-7105 / / [id number] Reunion Rsa Concentric Glensphere Implanted:Qty: 1 on 06/18/2019 at [facility] Shoulder Implant [place] [id number] 03/09/2024 5573-C-32 02 / / [id number] Procedures [...] METABOLIC PANEL, S/P Routine 08/24/2023 11:58 AM CUSTODY ASSISTANT Preoperative Exam HEMOGLOBIN A1C, B Routine 07/06/2023 5:5 2 AM CUSTODY ASSISTANT from Last 3 Months or Most Recently [...] 16, 2024 comparison. us Precious Estrada M.D. [facility] PRO [...] * Basic Metabolic Panel (08/24/2023 11:58 AM CUSTODY ASSISTANT) Potassium, P 4.5 3.6 - 5.2 mmol/L 08/24/2023 12:27 PM CUSTODY ASSISTANT CNFL Sodium, P 136 135 - 145 mmol/L 08/24/2023 12:27 PM CUSTODY ASSISTANT CNFL Chloride, P 100 98 - 107 mmol/L 08/24/2023 12:27 PM CUSTODY ASSISTANT CNFL Bicarbonate, P 28 22 - 29 mmol/L 08/24/2023 12:27 PM CUSTODY ASSISTANT CNFL Anion Gap, P 8 7 - 15 08/24/2023 12:27 PM CUSTODY ASSISTANT CNFL BUN (Blood Urea Nitrogen), P 14 6 - 21 mg/dL 08/24/2023 12:27 PM CUSTODY ASSISTANT CNFL Creatinine 0.64 0.59 - 1.04 mg/dL 08/24/2023 12:27 PM CUSTODY ASSISTANT CNFL Estimated GFR (eGFR) >90 >=60 mL/min/BSA 08/24/2023 12:27 PM CUSTODY ASSISTANT CNFL Comment: Estimated GFR calculated using the 2020 CKD_EPI creatinine equation. Calcium, Total, P 10.0 8.8 - 10.2 mg/dL 08/24/2023 12:27 PM CUSTODY ASSISTANT CNFL Glucose, P 111 70 - 140 mg/dL 08/24/2023 12:27 PM CUSTODY ASSISTANT CNFL Blood (Blood, Venous) 08/24/2023 11:58 AM CUSTODY ASSISTANT 08/24/2023 12:00 PM CUSTODY ASSISTANT us Candice Barcenas APRN, C.N.P. LAB BLOOD ADD-ON Sue l Result Performing Organization Address City/State/[facility] Co de Phone Number [facility] [address] [place] [address], [facility] [address] * (ABNORMAL) Hemoglobin A1c (07/06/2023 5:52 AM CUSTODY ASSISTANT) Hemoglobin A1c, B 7.2(H) 4.2 - 5.6 % 07/06/2023 6:50 AM CUSTODY ASSISTANT [facility]DW[facility] Comment: Hemoglobin A1c values greater than or equal to 6.5 percent are diagnostic for diabetes mellitus. ??Diagnosis should be confirmed by repeat testing. ??In diabetic patients, HbA1c goals should be discussed with healthcare provider. Blood (Blood, Venous) 07/06/2023 5:52 AM CUSTODY ASSISTANT 07/06/2023 6:30 AM CUSTODY ASSISTANT us Uriel Renner M.D. LAB BLOOD ADD-ON Final Res ult [facility] [address] [address], [place] RDWG [facility] in [place] [address] [phone] from Last 3 Months or Most Recently Relevant to Health Maintenance Insurance MEDICARE [facility] Advance Directives For more information, please contact: [phone] Documents on File Type Date Recorded Patient Sales Representative Groceries Expl anation Advance Directives 07/07/2023 9:39 AM Robert TELLEZOA/ADVOCATE/AGENT/ AGILITY INSTRUCTOR/SURROG ATE * Full Code (Latest Code Status [...] Second Alternate Health Care Agent Care Teams Pan Tank Worker Relationship Specialty Start Date End Date None Reported, Pcp PCP - General Family Medicine 07/05/23
--- OUTSIDE RECORDS SUMMARY | 2024-06-12 07:41 | XMS_ITS | Encounter Summary ---
Author Organization [facility] Address [address] [place] [address] Care Team Providers Care Lan Support Specialist Name Role Phone None Reported, Pcp Primary Care Provider Unavail able Reason for Referral * MRI/CAT/PET Scan (Routine) - Closed Specialty Diagnoses / Procedures Referred By Contac t Referred To Contact Radiology Diagnoses Pain Shoulder Left Procedures MR Shoulder Left without IV Contrast Precious Estrada M.D. [address] [place] [phone] Phone: tel: fax: [facility] Region Referral ID Status Reason Start Date Expiration Date Visits Re quested Visits Authorized [id number] Closed 05/20/2024 05/20/2025 1 1 Reason for Visit * MRI/CAT/PET Scan (Routine) - Closed Specialty Diagnoses / Procedures Referred By Contac t Referred To Contact Radiology Diagnoses Pain Shoulder Left Procedures MR Shoulder Left without IV Contrast Precious Estrada M.D. [address] [place] [phone] Phone: tel: fax: [facility] Region Referral ID Status Reason Start Date Expiration Date Visits Re quested Visits Authorized [id number] Closed 05/20/2024 05/20/2025 1 1 Encounter Details Date Type Department Care Team (Latest Contact Info) Description 05/30/2024 2:43 PM CDT - 05/30/2024 11:59 PM CDT Hospital Encounter Department of Radiology in [address] [phone] Precious Estrada M.D. [address] [place] [phone] Pain Shoulder Left Discharge Disposition: Home or Self Care Social History Tobacco Use Types Packs/Day Years Used Date Smoking Tobacco: Former Cigarettes Smokeless Tobacco: Never Alcohol Use Standard Drinks/Week Comments Not Currently 0 (1 standard drink = 0.6 oz pur e alcohol) [facility] Utilities Answer Date Recorded In the past [...] your living situation today? 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
--- OUTSIDE RECORDS SUMMARY | 2024-06-12 07:41 | XMS_ITS | Clinical Summary ---
Author Organization [facility] Address [place], [place] [address] Care Team Providers Care Reservoir Caretaker Name Role Phone Vanessa García MD Primary [...] Type Department Care Team Description 05/06/2024 Telephone [facility] Joint Replacement [facility] [address] [facility] [address] [place] [phone] Mariann Winn PA Refill Request (GABAPENTIN 100 MG CAPSULES) 04/08/2024 Telephone [facility] Joint Replacement [facility] [address] [facility] [address] [place] [phone] Mariann Winn PA Need Meds from Last [...] Comments Blood Pressure 107/65 09/09/2020 11:02 AM PRINTER SLOTTER OPERATOR Pulse 77 09/09/2020 11:02 AM PRINTER SLOTTER OPERATOR Temperature 36.4 ??C (97.5 ??F) 06/24/2020 2:38 PM CS T Respiratory Rate 16 04/22/2017 7:38 AM CDT Oxygen Saturation 98% 09/09/2020 11:02 AM PRINTER SLOTTER OPERATOR Inhaled Oxygen Concentration - - Weight 68.1 kg (150 lb 1.6 oz) 09/09/2020 11:02 AM PRINTER SLOTTER OPERATOR Height 162.6 cm (5' 4.02) 04/18/2018 11:26 [...] Completed 03/22/2011 Medical Devices Implanted Type Area City Administrator Device Identifier Shelf Expiration Date Model / Serial / Lot Patella Sz32 Miriam Ii Rnd Penon Pors - [id number] Implanted:Qty: 1 on 04/20/2017 by Barrie Contreras MD at [facility] Ortho Total Joint Left: Patella [employer] 01/11/2027 [id number] # / / [id number] Lens Iol 22 Tecnis - [id number] Implanted:Qty: 1 on 10/13/2015 by Evan Walker MD at [facility] Left: Eye [employer] 07/07/2020 [id number] / [id number] / Cmnt Bone Simplex Atb Tobramycin - [id number] Implanted:Qty: 1 on 04/20/2017 by Barrie Contreras MD at [facility] Left: Knee [employer] 08/13/2018 [id number] 1# / / [id number] Cmnt Bone Simplex Atb Tobramycin - [id number] Implanted:Qty: 1 on 04/20/2017 by Barrie Contreras MD at [facility] Left: Knee [employer] 08/13/2018 [id number] 1# / / [id number] Baseplate Tib Lt Sz2 Miriam Ii Titnm Non Pors - [id number] Implanted:Qty: 1 on 04/20/2017 by Barrie Contreras MD at [facility] Left: Tibia [employer] 03/04/2027 [id number] # / / [id number] Fem Lt Sz4n Legion Narrow Croxin - [id number] Implanted:Qty: 1 on 04/20/2017 by Barrie Contreras MD at [facility] Left: Femur [employer] 12/05/2026 [id number] / / [id number] Insert Knee Sz1-2 12mm Legion Cruc Ret High Flex Xlpe - [id number] Implanted:Qty: 1 on 04/20/2017 by Barrie Contreras MD at [facility] Left: Tibia [employer] 07/13/2024 [id number] / / [id number] Advance Directives * Full Code (Latest Code [...] 12:27 PM 02/18/2015 3:02 PM Care Teams Reservoir Caretaker Relationship Specialty Start Date End Date Vanessa García MD [address] [place] [address] PCP - General Family Practice 10/07/15
--- OUTSIDE RECORDS SUMMARY | 2024-06-12 07:42 | XMS_ITS | Encounter Summary ---
Author Organization [facility] Address [address] [place] [address] Care Team Providers Care Entry Level Management Name Role Phone None Reported, Pcp Primary Care Provider Unavail able Reason for Referral * Outpatient (Routine) - Closed Specialty Diagnoses / Procedures Referred By Carley shields Referred To Contact Diagnoses Pain Shoulder Right Pain Shoulder Left Procedures DX Shoulder Bilateral 2+ Views Candice Lynch APRN, C.N.P., D.N.P. [address] [place] [address] Phone: tel: fax: [facility] Region Referral ID Status Reason Start Date Expiration Date Visits Re quested Visits Authorized [id number] Closed 04/11/2024 04/11/2025 1 1 Reason for Visit * Outpatient (Routine) - Closed Specialty Diagnoses / Procedures Referred By Contkendra t Referred To Contact Diagnoses Pain Shoulder Right Pain Shoulder Left Procedures DX Shoulder Bilateral 2+ Views Candice Lynch APRN, C.N.P., D.N.P. [address] [place] [address] Phone: tel: fax: [facility] Region Referral ID Status Reason Start Date Expiration Date Visits Re quested Visits Authorized [id number] Closed 04/11/2024 04/11/2025 1 1 Encounter Details Date Type Department Care Team (Latest Contact Info) Description 04/16/2024 10:01 AM CDT - 04/16/2024 11:59 PM CDT Hospital Encounter Department of Radiology in [address] [phone] Candice Lynch, EDGAR, C.N.P., D.N.P. [address] [place] [address] Pain Shoulder Right; Pain Shoulder Left Discharge Disposition: Home or Self Care Social History Tobacco Use Types Packs/Day Years Used Date Smoking Tobacco: Former Cigarettes Smokeless Tobacco: Never Alcohol Use Standard Drinks/Week Comments Not Currently 0 (1 standard drink = 0.6 oz pur e alcohol) [facility] Utilities Answer Date Recorded In the past [...] Family Three times a week 04/11/2019 Attends [employer] Services Not on file 04/11 Active Member [...] your living situation today? I have a [facility] place to live 09/19/2023 Comments No Sex and Gender Information Value Date Recorded Sex Assigned at Not on file Legal Sex Female 4:53 PM HYDROLOGICAL TECHNICAL OFFICER Gender Identity Not on file Sexual Orientation [...] setting of calcific tendinitis. Candice L Syed BICYCLE MECHANIC, C.N.P., D.N.P. IMG DIAGNOS TIC IMAGING PROCEDURES Final Result documented in this encounter Visit Diagnoses Diagnosis Pain Shoulder Right Pain Shoulder Left documented in this encounter Care Teams Entry Level Management Relationship Specialty Start Date End Date None Reported, Pcp PCP - General Family Medicine 07/05/23 documented as of this encounter
--- OUTSIDE RECORDS SUMMARY | 2024-06-12 07:42 | XMS_ITS | Encounter Summary ---
Author Organization [place] Address [address] [place] [address] Care Team Providers Care Freight Manager Name Role Phone No Ref-Primary, Physician Primary Care Provider Reason for Visit * Reason Onset Date Comments Appointment 07/07/2020 Appointment for hematuria and chronic cystitis Encounter Details Date Type Department Care Team (Late st Contact Info) Description 07/07/2020 [facility] [address] [place] [address] None Appointment (Appointment for hematuria and chronic cystitis) Social History Tobacco Use Types Packs/Day Years Used Date Smoking Tobacco: Former Smokeless Tobacco: Never Comments: Alcohol Use Standard Drinks/Week Comments Yes 0 (1 standard drink = 0.6 oz pur e alcohol) occasionally Comments No Sex and Gender Information Value Date Recorded Sex Assigned at Not on file Legal Sex Female 3:40 AM CASINO CONTROLLER Gender Identity Not on file Sexual Orientation Not on file documented as of this encounter Miscellaneous Notes * Telephone Encounter - Saul Gamez - 07/07/2020 2:39 PM CST [facility] Call Center Phone Message May a detailed message be left on voicemail: yes Reason for Call: Other: Pt being referred from [facility] for an appointment in [place] for hematuria and chronic cystitis. Per guidelines, clinic review for hematuria. The referral will be faxed over. Please give pt a call to discuss scheduling an appointment. Action Taken: Message routed to: [facility] urology Travel Screening: Not Applicable NO CONTROLLER documented in this encounter Plan of Treatment Not on file documented as of this encounter Visit Diagnoses Not on filedocumented in this encounter Care Teams Freight Manager Relationship Specialty Start Date End Date No Ref-Primary, Physician PCP - General 03/08/18 documented as of this encounter
--- OUTSIDE RECORDS SUMMARY | 2024-06-12 07:42 | XMS_ITS | Encounter Summary ---
Author Organization [facility] Address [address] [place] [address] Care Team Providers Care Technologist Development Name Role Phone None Reported, Pcp Primary Care Provider Unavail able Reason for Referral * Outpatient (Routine) - Closed Specialty Diagnoses / Procedures Referred By Contkendra t Referred To Contact Diagnoses Pain Shoulder Right Pain Shoulder Left Procedures DX Shoulder Bilateral 2+ Views Candice Lynch APRN, C.N.P., D.N.P. [address] [place] [address] Phone: tel: fax: [facility] Region Referral ID Status Reason Start Date Expiration Date Visits Re quested Visits Authorized [id number] Closed 04/11/2024 04/11/2025 1 1 Encounter Details Date Type Department Care Team (Late st Contact Info) Description 04/11/2024 Clinical Communication Department of Orthopedic Surgery in [place], [place] [address] [place] [address] Candice Lynch APRN, C.N.P., D.N.P. [address] [place] [address] Social History Tobacco Use Types [...] your living situation today? I have a [facility] place to live 09/19/2023 Comments No Sex and Gender Information Value Date Recorded Sex Assigned at Not on file Legal Sex Female 4:53 PM SCALP TREATMENT OPERATOR Gender Identity Not on file Sexual Orientation [...] Left documented in this encounter Care Teams Technologist Development Relationship Specialty Start Date End Date None Reported, Pcp PCP - General Family Medicine 07/05/23 documented as of this encounter
--- OUTSIDE RECORDS SUMMARY | 2024-06-12 07:42 | XMS_ITS | Encounter Summary ---
Author Organization [facility] Address [address] [place] [address] Care Team Providers Care Correctional Sergeant Name Role Phone None Reported, Pcp Primary Care Provider Unavail able Reason for Visit * Reason Onset Date Comments Arm Injury 05/20/2024 Encounter Details Date Type Department Care Team (Late st Contact Info) Description 05/20/2024 Nurse Triage Department of Family Medicine, [facility], in [place], [place] [address] [place] [phone] Amanda Finn, RJudithNJudith [address] [place] [address] Arm Injury Social History Tobacco Use Types Packs/Day Years Used Date Smoking Tobacco: Former Cigarettes Smokeless Tobacco: Never Alcohol Use Standard Drinks/Week Comments Not Currently 0 (1 standard drink = 0.6 oz pur e alcohol) [facility] Utilities Answer Date Recorded In the [...] Family Three times a week 04/11/2019 Attends Sabianist Services Not on file 04/11 Active Member [...] your living situation today? I have a [facility] place to live 09/19/2023 Comments No Sex and Gender Information Value Date Recorded Sex Assigned at Not on file Legal Sex Female 4:53 PM BATTERY INSTALLER Gender Identity Not on file Sexual Orientation [...] advice?: Yes, able to teach back Arm Uudvya-LWLMG-IY Nurse Amanda Harvey May 20, 2024 09:14 AM Care Advice PAIN MEDICINES: * For pain relief, you can take either acetaminophen, ibuprofen, or naproxen. * They are ttms-ljf-ktjflcw (OTC) pain drugs. You can buy them [...] these dosing instructions unless your doctor (or ELEMENTARY READING TUTOR/PA) has told you to take a different dose. * Acetaminophen is thought to be safer than ibuprofen or naproxen in people over 65 years old. Acetaminophen is in many OTC and prescription medicines. It might be in more than one medicine that you are taking. You need to be careful and not take an overdose. An acetaminophen overdose can hurt the liver. * [employer] the company that makes Tylenol, has different maximum dosage instructions for Tylenol in [place] than in the [place]. [employer], the company that makes Aleve, has different [...] MILD to MODERATE pain Protocols used: Arm Nllymg-HWBCU-JA documented in this encounter Plan of Treatment Not on file documented as of this encounter Visit Diagnoses Not on filedocumented in this encounter Care Teams Correctional Sergeant Relationship Specialty Start Date End Date None Reported, Pcp PCP - General Family Medicine 07/05/23 documented as of this encounter
--- OUTSIDE RECORDS SUMMARY | 2024-06-12 07:42 | XMS_ITS | Referral Summary ---
Author Organization [place] Address [address] [place] [address] Care Team Providers Care Taker Down Name Role Phone No Ref-Primary, Physician Primary [...] Take 1 tablet by mouth daily Active [place]-3 Fatty Acids (OMEGA-3 FISH OIL PO) Take [...] on file Legal Sex Female 3:40 AM PLANT PACKER Gender Identity Not on file Sexual Orientation Not on file Last Filed Vital Signs Vital Sign Reading Time Taken Comments Blood Pressure 104/60 03/08/2018 10:15 AM CDT Pulse 66 06/24/2014 11:08 AM PLANT PACKER Temperature 36.3 ??C (97.3 ??F) 03/08/2018 8:00 [...] on file Medical Devices Implanted Type Area Moisture Meter Operator Device Identifier Shelf Expiration Date Model / Serial / Lot Eye Imp Iol [place] 1-Piece Tecnis Toric +22.0 [id number] Implanted:Qty: 1 on 03/08/2018 by Pankaj Quiñones MD at [facility] Lens/Eye Implant Right: Eye [employer] 06/17/2021 [id number] 220 / [id number] / Screw Implanted:Qty: 1 on 07/03/2014 by Javad Ray MD at [facility] Right: Foot KAYLEEN / [id number] / [id number] Description:1.9mm Emergency Screws 12mm screw length 2.7mm Locking Screw 14mml Implanted:Qty: 1 on 07/03/2014 by Javad Ray MD at [facility] Right: Foot KAYLEEN / [id number] / [id number] Description:2.7 Locking Scre w T7 14mm 2.7mm Locking Screws 16mml Implanted:Qty: 2 on 07/03/2014 by Javad Ray MD at [facility] Right: Foot KAYLEEN / [id number] / [id number] Description:2.7mm Locking Sc rews T7 16mm length 2.7mm Locking Screws 18mml Implanted:Qty: 1 on 07/03/2014 by Javad Ray MD at [facility] Right: Foot KAYLEEN / [id number] / [id number] 0506 Description:2.7mm Locking Sc rew T7 18mm length 2.7mm Non-Locking Screw 24mml Implanted:Qty: 1 on 07/03/2014 by Javad Ray MD at [facility] Right: Foot KAYLEEN / [id number] / 02JUL2014 0506 Description:2.7mm Non- Locki ng Screw T7 24mm length K Wire .062 Implanted:Qty: 1 on 07/03/2014 by Javad Ray MD at [facility] Right: Foot Depuy / / [id number] Twist Drill Implanted:Qty: 1 on 07/03/2014 by Javad Ray MD at [facility] Right: Foot KAYLEEN / [id number] / [id number] 0506 Description:1.4 x 27mm AO Tw ist Drill Twist Drill 1.9 X 27mm Implanted:Qty: 1 on 07/03/2014 by Javad Ray MD at [facility] Right: Foot KAYLEEN / [id number] / 02JUL2014 0506 Description:1.9x27mm AO Twis t Drill Countersinks 1.7mm 47mm Implanted:Qty: 1 on 07/03/2014 by Javad Ray MD at [facility] Right: Foot KAYLEEN / [id number] / [id number] 0506 Description:1.7mm screw, 47m m AO Countersinks Curved Plate 2.7mm Implanted:Qty: 1 on 07/03/2014 by Javad Ray MD at [facility] KAYLEEN / [id number] / [id number] 0506 Description:Curved Plate 2.7 mm 26mm length 4 holes Concave Reamer Implanted:Qty: 1 on 07/03/2014 by Javad Ray MD at [facility] Right: Foot KAYLEEN / [id number] Description:18mm Concave [place] darrius Special Officer Automat Implanted:Qty: 1 on 07/03/2014 by Javad Ray MD at [facility] Right: Foot KAYLEEN / [id number] Description:18mm Barrel Ream er Convex Reamer 18mm Implanted:Qty: 1 on 07/03/2014 by Javad Ray MD at [facility] Right: Foot KAYLEEN / [id number] Description:18mm Convex Ream er Kwire Implanted:Qty: 2 on 07/03/2014 by Javad Ray MD at [facility] Right: Foot KAYLEEN / [id number] / [id number] Description:K Wire Smooth, 1 .4 x 100mm Insurance MEDICARE [facility] MADALYN BARRERA [id number] SPECIAL GUARANTOR Care Teams Taker Down Relationship Specialty Start Date End Date No Ref-Primary, Physician PCP - General 03/08/18
--- OUTSIDE RECORDS SUMMARY | 2024-06-12 07:42 | XMS_ITS | Clinical Summary ---
Author Organization [place] Address [address] [place] [address] Care Team Providers Care Cloth Cutting Inspector Name Role Phone No Ref-Primary, Physician Primary [...] Take 1 tablet by mouth daily Active [place]-3 Fatty Acids (OMEGA-3 FISH OIL PO) Take [...] on file Legal Sex Female 3:40 AM EXECUTIVE OFFICER SPECIAL WARFARE TEAM Gender Identity Not on file Sexual Orientation Not on file Last Filed Vital Signs Vital Sign Reading Time Taken Comments Blood Pressure 104/60 03/08/2018 10:15 AM CDT Pulse 66 06/24/2014 11:08 AM EXECUTIVE OFFICER SPECIAL WARFARE TEAM Temperature 36.3 ??C (97.3 ??F) 03/08/2018 8:00 [...] on file Medical Devices Implanted Type Area Plastic Block Boiler Reliner Device Identifier Shelf Expiration Date Model / Serial / Lot Eye Imp Iol [place] 1-Piece Tecnis Toric +22.0 [id number] Implanted:Qty: 1 on 03/08/2018 by Pankaj Quiñones MD at [facility] Lens/Eye Implant Right: Eye [employer] 06/17/2021 [id number] 220 / [id number] / Screw Implanted:Qty: 1 on 07/03/2014 by Javad Ray MD at [facility] Right: Foot KAYLEEN / [id number] / 02Jul2014 Description:1.9mm Emergency Screws 12mm screw length 2.7mm Locking Screw 14mml Implanted:Qty: 1 on 07/03/2014 by Javad Ray MD at [facility] Right: Foot KAYLEEN / [id number] / [id number] 050 Description:2.7 Locking Scre w T7 14mm 2.7mm Locking Screws 16mml Implanted:Qty: 2 on 07/03/2014 by Javad Ray MD at [facility] Right: Foot KAYLEEN / [id number] / [id number] Description:2.7mm Locking Sc rews T7 16mm length 2.7mm Locking Screws 18mml Implanted:Qty: 1 on 07/03/2014 by Javad Ray MD at [facility] Right: Foot KAYLEEN / [id number] / 02JUL2014 0506 Description:2.7mm Locking Sc rew T7 18mm length 2.7mm Non-Locking Screw 24mml Implanted:Qty: 1 on 07/03/2014 by Javad Ray MD at [facility] Right: Foot KAYLEEN / [id number] / 02JUL2014 0506 Description:2.7mm Non- Locki ng Screw T7 24mm length K Wire .062 Implanted:Qty: 1 on 07/03/2014 by Javad Ray MD at [facility] Right: Foot Depuy / / [id number] Twist Drill Implanted:Qty: 1 on 07/03/2014 by Javad Ray MD at [facility] Right: Foot KAYLEEN / [id number] / 02JUL2014 0506 Description:1.4 x 27mm AO Tw ist Drill Twist Drill 1.9 X 27mm Implanted:Qty: 1 on 07/03/2014 by Javad Ray MD at [facility] Right: Foot KAYLEEN / [id number] / [id number] 0506 Description:1.9x27mm AO Twis t Drill Countersinks 1.7mm 47mm Implanted:Qty: 1 on 07/03/2014 by Javad Ray MD at [facility] Right: Foot KAYLEEN / [id number] / 02JUL2014 0506 Description:1.7mm screw, 47m m AO Countersinks Curved Plate 2.7mm Implanted:Qty: 1 on 07/03/2014 by Javad Ray MD at [facility] KAYLEEN / [id number] / 02JUL2014 0506 Description:Curved Plate 2.7 mm 26mm length 4 holes Concave Reamer Implanted:Qty: 1 on 07/03/2014 by Javad Ray MD at [facility] Right: Foot KAYLEEN / [id number] Description:18mm Concave [place] darrius Bag Bailer Implanted:Qty: 1 on 07/03/2014 by Javad Ray MD at [facility] Right: Foot KAYLEEN / [id number] Description:18mm Barrel Ream er Convex Reamer 18mm Implanted:Qty: 1 on 07/03/2014 by Javad Ray MD at [facility] Right: Foot KAYLEEN / [id number] Description:18mm Convex Ream er Kwire Implanted:Qty: 2 on 07/03/2014 by Javad Ray MD at [facility] Right: Foot KAYLEEN / [id number] / [id number] Description:K Wire Smooth, 1 .4 x 100mm Insurance MEDICARE [facility] MADALYN BARRERA [id number] SPECIAL GUARANTOR Care Teams Cloth Cutting Inspector Relationship Specialty Start Date End Date No Ref-Primary, Physician PCP - General 03/08/18
--- OUTSIDE RECORDS SUMMARY | 2024-06-12 07:42 | XMS_ITS | Encounter Summary ---
Author Organization [facility] Address [address] [place] [address] Care Team Providers Care Educational Psychology Teacher Name Role Phone None Reported, Pcp Primary Care Provider Unavail able Reason for Referral * Outpatient (Routine) - Closed Specialty Diagnoses / Procedures Referred By Contac t Referred To Contact Diagnoses Pain Shoulder Left Procedures DX Shoulder Left 2+ Views Precious Estrada M.D. [address] [place] [phone] Phone: tel: fax: [facility] Region Referral ID Status Reason Start Date Expiration Date Visits Re quested Visits Authorized [id number] Closed 05/20/2024 05/20/2025 1 1 * MRI/CAT/PET Scan (Routine) - Closed Specialty Diagnoses / Procedures Referred By Contac t Referred To Contact Radiology Diagnoses Pain Shoulder Left Procedures MR Shoulder Left without IV Contrast Precious Estrada M.D. [address] [place] [phone] Phone: tel: fax: [facility] Region Referral ID Status Reason Start Date Expiration Date Visits Re quested Visits Authorized [id number] Closed 05/20/2024 05/20/2025 1 1 Reason for [...] Expiration Date Visits Re quested Visits Authorized [id number] Closed 05/20/2024 05/20/2025 1 1 Encounter Details Date Type Department Care Team (Late st Contact Info) Description 05/20/2024 11:00 AM CDT Office Visit Department of Family Medicine, [facility] in [address] [phone] Precious Estrada M.D. [address] [place] [phone] Pain Shoulder Left (Primary Dx); Diabetes Mellitus Type 2 Without Complication (HCC) Discharge Disposition: Home or Self Care Social History Tobacco Use Types Packs/Day Years Used Date Smoking Tobacco: Former Cigarettes Smokeless Tobacco: Never Tobacco Cessation:Counseling Given: Not Answered Alcohol Use Standard Drinks/Week Comments Not Currently 0 (1 standard drink = 0.6 oz pur e alcohol) [facility] Utilities Answer Date Recorded In the past 12 months has [facility], gas, oil, or water [place]uy [place] threatened to shut off services in your [...] your living situation today? I [facility] 09/19/2023 Comments No Sex and Gender Information Value Date Recorded Sex Assigned at Not on file Legal Sex Female 4:53 PM PRODUCTION LINE MANAGER Gender Identity Not on file Sexual [...] Body Mass Index 23.62 08/24/2023 10:57 AM PRODUCTION LINE MANAGER documented in this encounter Progress Notes * [...] patient has been managing the pain with wyyp-hks-axzklgl Tylenol and has not sought any other [...] to evaluate for rotator cuff tear. -Continue hfli-bne-dcdeogs Tylenol for pain. -Follow-up with orthopedics later [...] 16, 2024 comparison. us Precious Estrada M.D. [facility] DIAGNOSTIC IMAGING PRO CEDURES Final Result documented in this encounter Visit Diagnoses Diagnosis Pain Shoulder Left- Primary Diabetes Mellitus Type 2 Without Complication (HCC) Pain Shoulder Left Pain Shoulder Left documented in this encounter Care Teams Educational Psychology Teacher Relationship Specialty Start Date End Date None Reported, Pcp PCP - General Family Medicine 07/05/23 documented as of this encounter
--- OUTSIDE RECORDS SUMMARY | 2024-06-12 07:42 | XMS_ITS | Encounter Summary ---
Author Organization [facility] Address [address] [place] [address] Care Team Providers Care Negative Cleaner Name Role Phone None Reported, Pcp Primary Care Provider Unavail able Reason for Referral * Outpatient (Routine) - Closed Specialty Diagnoses / Procedures Referred By Contac t Referred To Contact Diagnoses Pain Shoulder Left Procedures DX Shoulder Left 2+ Views Precious Estrada M.D. [address] [place] [phone] Phone: tel: fax: [facility] Region Referral ID Status Reason Start Date Expiration Date Visits Re quested Visits Authorized [id number] Closed 05/20/2024 05/20/2025 1 1 Reason for Visit * Outpatient (Routine) - Closed Specialty Diagnoses / Procedures Referred By Carley shields Referred To Contact Diagnoses Pain Shoulder Left Procedures DX Shoulder Left 2+ Views Precious Estrada M.D. [address] [place] [phone] Phone: tel: [facility] Region Referral ID Status Reason Start Date Expiration Date Visits Re quested Visits Authorized [id number] Closed 05/20/2024 05/20/2025 1 1 Encounter Details Date Type Department Care Team (Latest Contact Info) Description 05/20/2024 11:27 AM CDT - 05/20/2024 11:59 PM CDT Hospital Encounter Department of Radiology in [address] [phone] Precious Estrada M.D. [address] [place] [phone] Pain Shoulder Left Discharge Disposition: Home or Self Care Social History Tobacco Use Types Packs/Day Years Used Date Smoking Tobacco: Former Cigarettes Smokeless Tobacco: Never Alcohol Use Standard Drinks/Week Comments Not Currently 0 (1 standard drink = 0.6 oz pur e alcohol) [facility] Utilities Answer Date Recorded In the [...] living situation today? I have a [facility] place to live 09/19/2023 Comments No Sex and Gender Information Value Date Recorded Sex Assigned at Not on file Legal Sex Female 4:53 PM UNEMPLOYMENT INSURANCE DIRECTOR Gender Identity Not on file Sexual Orientation [...] Left documented in this encounter Care Teams Negative Cleaner Relationship Specialty Start Date End Date None Reported, Pcp PCP - General Family Medicine 07/05/23 documented as of this encounter
--- NOTE | 2024-06-12 08:15 | CRLHL7_ITS ---
For Patients: As a result of the Century Cures Act, medical imaging exams and procedure reports are released immediately into your electronic medical record. You may view this report before your referring provider. If you have questions, please contact your health care provider. INDICATION: Sacral insufficiency fracture. TECHNIQUE: Noncontrast MRI of the pelvis/sacrum. Sagittal, axial oblique and coronal oblique T1 and STIR images were acquired. 1.5 zach MRI scanner. COMPARISON: Radiographs from 05/27/2024. FINDINGS: No sacral or coccygeal fracture. No marrow replacement process. Degenerative changes of the sacroiliac joints bilaterally. No sacroiliac joint erosive change or ankylosis. 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 Lumbar MRI is reported separately. Incidental small perineural cyst at the S2 level. IMPRESSION: 1. No sacral or coccygeal fracture. 2. Degenerative changes of the sacroiliac joints. 3. Lumbar MRI reported separately. Dictated by Dionisio Cm MD @ 06/12/2024 1:30:36 PM (Electronically Signed)
[2024-06-12 08:18] LABS: Creatinine* 0.7 mg/dL (0.5-1.5); Estimated Glomerular Filt Rate 89 ml/min
--- NOTE | 2024-06-12 09:00 | CRLHL7_ITS ---
For Patients: As a result of the Century Cures Act, medical imaging exams and procedure reports are released immediately into your electronic medical record. You may view this report before your referring provider. If you have questions, please contact your health care provider. INDICATION: Localized swelling, mass COMPARISON: Ultrasound 06/06/2024 TECHNIQUE: A CT volumetric acquisition was performed of the neck during intravenous infusion of 67 cc Isovue 370 nonionic intravenous contrast. Please note that all CT scans at this facility use dose modulation, iterative reconstruction, and/or weight-based dosing when appropriate to reduce radiation dose to as low as reasonably achievable. FINDINGS: The CT images demonstrate normal aeration of the mastoid air cells and middle ear cavities. The paranasal sinuses are clear. The nasopharynx appears normal. The submandibular glands are of normal size and have uniform enhancement. Normal right parotid gland. Absent or diminutive left parotid gland. The oropharynx appears normal. The valleculae, epiglottis, aryepiglottic folds and piriform sinuses appear normal. There is a normal appearance of the larynx and subglottic trachea. The thyroid gland is of normal size and has uniform density. There is no evidence of lymphadenopathy within the anterior and posterior cervical triangles or within the supraclavicular region. Multilevel degenerative disc disease. No fracture. IMPRESSION: No suspicious findings. The area on ultrasound appears to represent normal tissue. Please note that all CT scans at this facility use dose modulation, iterative reconstruction, and/or weight-based dosing when appropriate to reduce radiation dose to as low as reasonably achievable. Dictated by Evan Gonzalez MD @ 06/12/2024 1:08:15 PM (Electronically Signed)
--- NOTE | 2024-06-12 09:00 | CRLHL7_ITS ---
For Patients: As a result of the 21st Century Cures Act, medical imaging exams and procedure reports are released immediately into your electronic medical record. You may view this report before your referring provider. If you have questions, please contact your health care provider. INDICATION: Lumbar fracture. Spinal stenosis. TECHNIQUE: Sagittal and axial T1, sagittal axial T2 and sagittal STIR images. Findings : Chronic appearing compression fracture deformity of the T12 and L1 superior endplates. No evidence of acute lumbar spine compression fracture. No bone edema or cortical deformity to suggest sacral fracture at this time. Grade 1 degenerative spondylolisthesis at L4-5. The distal spinal cord and conus medullaris appear normal in morphology and signal intensity. The conus terminates normally at the L1-2 interspace. No disc herniation central or lateral stenosis at the T10-11, T11-12, T12-L1 or L1-2 levels. At L2-3 degenerative disc desiccation mild to moderate bilateral facet arthropathy. Minor posterior disc bulge. Mild spinal canal narrowing. The neural foramen are adequately patent. At L3-4 there is degenerative disc desiccation. There is mild circumferential annular bulging there is moderate bilateral facet arthropathy and thickening of the ligamentum flavum mild central canal stenosis neural foramen are adequately patent. At L4-5 grade 1 degenerative spondylolisthesis mild circumferential annular bulging. There is severe bilateral facet arthropathy with facet synovial cysts and bilateral facet joint effusions. Thickening of the ligamentum flavum. There is resultant severe central spinal canal stenosis. The largest synovial cyst in the left L4 lateral recess measures approximately 12 mm in diameter with compression of the thecal sac and impingement of the left L4 nerve root. There are additional synovial cyst arising from the right facet joint (8 mm and 5 mm) causing right L5 lateral recess stenosis and L5 nerve impingement. Moderate bilateral neural foraminal narrowing is also present. At L5-S1 degenerative disc desiccation. Moderate right-sided and mild left-sided facet arthropathy. Smaller right-sided facet synovial cyst measures approximately 4 mm causing mild thecal sac deformity. The S1 lateral recesses and the L5 neural foramen appear adequately patent. The included portions of the upper sacroiliac joints are unremarkable. Impression : 1. Chronic compression fracture deformities of the T12 and L1 superior endplates. No evidence of acute lumbar spine compression fracture nor acute sacral insufficiency fracture. 2. MRI pelvis is reported separately. 3. Severe central spinal canal stenosis at L4-5, lateral recess stenosis and impingement of bilateral L4 and L5 nerve roots, as described above. 4. At L4-5, severe bilateral facet arthropathy with multiple large, bilateral facet synovial cysts. Grade 1 anterolisthesis and bulging disc. 5. Less prominent facet and disc degenerative changes at the other lumbar levels. Dictated by Ministerio Blake MD @ 06/13/2024 8:38:40 AM (Electronically Signed)
== END 2024-06-12 07:39 | disposition home or self-care (01) ==
PROVIDERS: PCP Family Medicine; Visit Provider Orthopaedic Surgery Orthopaedic Surgery of the Spine
DX: M48.062 Spinal stenosis, lumbar region with neurogenic claudication (principal); M48.54XA Collapsed vertebra, not elsewhere classified, thoracic region, initial encounter for fracture; M51.369 Other intervertebral disc degeneration, lumbar region without mention of lumbar back pain or lower extremity pain; R22.1 Localized swelling, mass and lump, neck
CPT/HCPCS: 36415; 70491; 72148; 72195; 82565; Q9967

== ENCOUNTER 2024-10-01 12:41 | Outpatient (CLI) | payer MEDICARE, BC, SELFPAY | END 2024-10-01 12:42 | disposition home or self-care (01) | LOC: MAMMO 12:43 | PROVIDERS: PCP Family Medicine; Visit Provider Family Medicine | DX: Z12.31 Encounter for screening mammogram for malignant neoplasm of breast (principal); R92.333 Mammographic heterogeneous density, bilateral breasts | CPT/HCPCS: 77063; 77067 ==

== ENCOUNTER 2024-11-05 09:27 | Outpatient (CLI) | payer MEDICARE, BC, SELFPAY ==
--- NOTE | 2024-11-05 10:49 | W.ANESCHARGE ---
Anesthesia Charges Start Date/Time Anesthesia Start Date: 11/05/24 Anesthesia Start Time: 10:14 Stop Date/Time Anesthesia Stop Date: 11/05/24 Anesthesia Stop Time: 10:52 Summary Extremes of Age - Over 70 or under 1: HOSPITAL DIRECTOR Coding CPT Codes CPT Codes: KATIE LWR INTST SCR COLSC - 62738 ([id number]) P2 - PATIENT W/MILD SYST DISEASE, QX - HOSPITAL DIRECTOR SVC W/ MD MED DIRECTION, QK - AUTOMATIC CIGAR WRAPPER TENDER 2-4 CNCRNT ANES PROC Additional Codes: Summary - Extremes of Age - Over 70 or under 1: HOSPITAL DIRECTOR ([id number])
--- NOTE | 2024-11-05 11:40 | W.ANESCHARGE ---
Anesthesia Charges Start Date/Time Anesthesia Start Date: 11/05/24 Anesthesia Start Time: 10:14 Stop Date/Time Anesthesia Stop Date: 11/05/24 Anesthesia Stop Time: 10:52 Summary Extremes of Age - Over 70 or under 1: MDA Coding CPT Codes CPT Codes: ANES LWR INTST SCR COLSC - 58386 ([id number]) P2 - PATIENT W/MILD SYST DISEASE, QK - SPECIAL EDUCATION ITINERANT TEACHER 2-4 CNCRNT ANES PROC, QX - STOCK HOUSE WORKER SVC W/ MD MED DIRECTION Additional Codes: Summary - Extremes of Age - Over 70 or under 1: MDA ([id number])
== END 2024-11-05 09:28 | disposition home or self-care (01) ==
LOC: OP CLINIC 09:28
PROVIDERS: PCP Family Medicine; Visit Provider Surgery
DX: Z12.11 Encounter for screening for malignant neoplasm of colon (principal); K57.30 Diverticulosis of large intestine without perforation or abscess without bleeding; Z86.0100 Personal history of colon polyps, unspecified
CPT/HCPCS: 00812; 45378; 99100; J2704

== ENCOUNTER 2024-11-11 10:45 | Outpatient (RCR) | payer MEDICARE, BC, SELFPAY | END 2024-11-11 11:31 | disposition home or self-care (01) | PROVIDERS: PCP Family Medicine; Visit Provider Orthopaedic Surgery Adult Reconstructive Orthopaedic Surgery | DX: M48.062 Spinal stenosis, lumbar region with neurogenic claudication (principal); M54.17 Radiculopathy, lumbosacral region; M47.816 Spondylosis without myelopathy or radiculopathy, lumbar region; Z51.89 Encounter for other specified aftercare | CPT/HCPCS: 97110; 97162 ==

== ENCOUNTER 2024-11-12 09:08 | Outpatient (CLI) | payer MEDICARE, BC, SELFPAY | END 2024-11-12 09:09 | disposition home or self-care (01) | LOC: NFLDREF 11-13 00:38 | PROVIDERS: PCP Family Medicine; Referring Provider Family Medicine; Visit Provider Family Medicine | DX: E11.65 Type 2 diabetes mellitus with hyperglycemia (principal); E78.2 Mixed hyperlipidemia; R53.83 Other fatigue; Z79.84 Long term (current) use of oral hypoglycemic drugs | CPT/HCPCS: 80053; 80061 ==

== ENCOUNTER 2024-11-14 10:00 | Outpatient (CLI) | payer MEDICARE, BC, SELFPAY | END 2024-11-14 10:01 | disposition home or self-care (01) | LOC: NFLDREF 10:02 | PROVIDERS: PCP Family Medicine; Visit Provider Family Medicine | DX: R35.0 Frequency of micturition (principal) | CPT/HCPCS: 87086 ==

== ENCOUNTER 2025-02-18 12:33 | Outpatient (CLI) | payer MEDICARE, BC, SELFPAY ==
[2025-02-18 13:52] VITALS: BP 134/72; PULSE 76; RESP 18
--- NOTE | 2025-02-18 14:09 | W.PM.STED ---
Stress Test Note Date Date Seen: 02/18/25 Date of test: 02/18/25 Providers Primary care provider: Vanessa García Stress test physician: Chilo Al Stress Test Note Stress test ordered: Stress Echo Indication for test: Chest pain Stress test medicine: None Results discussion: Patient is a very nice 71-year-old female presents with the above test, cardiac stress test medical history form is reviewed in detail, risks benefits and side effects were discussed and she would like to proceed. Pretest EKG shows normal sinus rhythm, no acute ST wave changes are noted, rhythm is sinus, with a ventricular rate of 79 blood pressure 148 on 72. Standard Nicolas protocol is employed over a time course 6 minutes 54 seconds, she did achieve a metabolic equivalent of 8.3 Mets, maximum blood pressure was 182/92. During this test, there is no dysrhythmias, she had some leg fatigue, but no complaints of chest pain shortness of breath, there is some IR mild ST wave irregularities, none indicative of ischemia Impression: Negative electrographic portion of stress echo, conditioning was felt to be good subjectively negative Follow up suggested: Await echo imaging, clinical correlation with this will be needed she did very well, recovered normally and was discharged from this institution there were no complications.
== END 2025-02-18 13:54 | disposition home or self-care (01) ==
LOC: STRESS 12:34
PROVIDERS: PCP Family Medicine; Visit Provider Family Medicine
DX: R07.89 Other chest pain (principal); E78.2 Mixed hyperlipidemia
CPT/HCPCS: 93016; 93325; 93351

== ENCOUNTER 2025-02-19 08:38 | Outpatient (CLI) | payer MEDICARE, BC, SELFPAY ==
--- NOTE | 2025-02-19 08:45 | CRLHL7_ITS ---
For Patients: As a result of the Cures Act, medical imaging exams and procedure reports are released immediately into your electronic medical record. You may view this report before your referring provider. If you have questions, please contact your health care provider. DIGITAL DIAGNOSTIC LEFT MAMMOGRAM USING TOMOSYNTHESIS AND COMPUTER-AIDED DETECTION CLINICAL HISTORY: LEFT breast diffuse pain. COMPARISON: 10/01/2024. TECHNIQUE: Digital LEFT mammogram in two projections with computer-aided detection. Tomosynthesis was used in this interpretation. BREAST COMPOSITION: The breasts are heterogeneously dense, which may obscure small masses. FINDINGS: 3D CC/MLO LEFT breast mammogram images submitted. No suspicious masses or architectural distortion. No adenopathy or suspicious calcifications. IMPRESSION: No evidence of malignancy. RECOMMENDATIONS: Routine screening mammography. A lay language report of this examination will be provided to the patient. BI-RADS Category 2: Benign Dictated by Evan Gonzalez MD @ 02/19/2025 9:12:50 AM jj/Dictated by: Evan Gonzalez MD @ 02/19/2025 9:12:00 AM (Electronically Signed)
== END 2025-02-19 08:39 | disposition home or self-care (01) ==
LOC: MAMMO 08:39
PROVIDERS: PCP Family Medicine; Visit Provider Family Medicine
DX: N64.4 Mastodynia (principal); R92.333 Mammographic heterogeneous density, bilateral breasts
CPT/HCPCS: 77065; G0279

== ENCOUNTER 2025-05-26 09:35 | Outpatient (CLI) | payer MEDICARE, BC, SELFPAY ==
[2025-05-26 12:50] LABS: Lab Add On Test New Spec Needed
== END 2025-05-26 09:36 | disposition home or self-care (01) ==
LOC: NFLDREF 12:47
PROVIDERS: PCP Family Medicine; Referring Provider Family Medicine; Visit Provider Family Medicine
DX: E11.9 Type 2 diabetes mellitus without complications (principal); E78.2 Mixed hyperlipidemia; R53.83 Other fatigue
CPT/HCPCS: 80053; 80061; 82043; 82570; 82607; 84443